=== PATIENT | male | born 1950 | race Caucasian/White ===

== ENCOUNTER → 2023-09-27 08:07 | Outpatient (REF) | payer MEDICARE, SELFPAY ==
--- NOTE | 2023-09-27 08:50 | CARDSERVLU ---
Echocardiogram with Lumason completed after protocol screening completed. Allergies verified.
Patent IV site: ___rt hand__
IV site flushed with 0.9% NaCl pre and post administration.
Diluted bolus method utilized to enhance visualization of ventricular pelletier.
Total volume given: __3.0_ mL
Patient tolerated all procedures well without complications.
#22 placed rt hand. Lumason given and INT d/c'd.
== END ==
LOC: RCS 08:07
PROVIDERS: ATTENDING PHYSICIAN Internal Medicine Cardiovascular Disease; FAMILY PHYSICIAN Family Medicine
DX: I50.23 Acute on chronic systolic (congestive) heart failure (principal); I10 Essential (primary) hypertension
CPT/HCPCS: 93308; Q9950

== ENCOUNTER 2023-10-05 13:00 | Outpatient (RCR) | payer MEDICARE, SELFPAY | END 2023-10-05 23:59 | disposition home or self-care (01) | LOC: CRHB 13:00 | PROVIDERS: ATTENDING PHYSICIAN Internal Medicine Cardiovascular Disease; FAMILY PHYSICIAN Family Medicine | DX: I50.22 Chronic systolic (congestive) heart failure (principal); R53.83 Other fatigue; R06.09 Other forms of dyspnea; R00.2 Palpitations | CPT/HCPCS: G0422; G0423 ==

== ENCOUNTER 2023-10-08 08:09 | Outpatient (RCR) | payer MEDICARE, SELFPAY ==
[2023-10-08 08:14] LABS: Glucose - Point of Care 139 mg/dl (70-99)
[2023-10-08 09:11] LABS: Glucose - Point of Care 125 mg/dl (70-99)
== END 2023-10-08 23:59 | disposition home or self-care (01) ==
LOC: CRHB 08:09
PROVIDERS: ATTENDING PHYSICIAN Internal Medicine Cardiovascular Disease; FAMILY PHYSICIAN Family Medicine
DX: I50.22 Chronic systolic (congestive) heart failure (principal)
CPT/HCPCS: 82962; G0422; G0423

== ENCOUNTER → 2023-11-29 10:45 | Outpatient (REF) | payer MEDICARE, SELFPAY ==
[2023-11-29 11:56] LABS: % Basophils 1.2 % (0-2); % Eosinophils 6.5 % (0-6); % Immature Granulocytes 0.5 % (0-0.5); % Lymphocytes 15.8 % (20.5-51.1); % Monocytes 6.8 % (1.7-9.3); % Neutrophils 69.2 % (42.2-75.2); Absolute Basophils 0.1 10^3/uL (0-0.2); Absolute Eosinophils 0.6 10^3/uL (0-0.7); Absolute Lymphocytes 1.4 10^3/uL (1.2-3.4); Absolute Monocytes 0.6 10^3/uL (0.1-0.6); Hematocrit 41.9 % (39.0-52.0); Hemoglobin 13.3 g/dL (13.0-18.0); Mean Corp Hgb Conc. 31.7 g/dL (33.0-37.0); Mean Corpuscular Hgb 29.2 pg (27.0-31.0); Mean Corpuscular Volume 91.9 fL (80.0-94.0); Mean Platelet Volume 10.4 fL (7.4-10.4); Nucleated Red Blood Cells % 0 % (-); Platelet Count 204 10^3/uL (130-400); Red Blood Cell Count 4.56 10^6/uL (4.70-6.10); White Blood Cell Count 8.7 10^3/uL (4.8-10.8)
[2023-11-29 14:33] LABS: ALT (SGPT) 14 U/L (0-50); AST (SGOT) 25 U/L (17-59); Albumin 4.8 g/dl (3.5-5.0); Alkaline Phosphatase 68 U/L (38-126); Blood Urea Nitrogen 35 mg/dl (9-20); Calcium 9.5 mg/dl (8.4-10.2); Carbon Dioxide 28 mmol/L (22-30); Chloride 99 mmol/L (98-107); Glucose 133 mg/dl (70-99); HDL Cholesterol 48 mg/dl; LDL Cholesterol, Calculated 69 mg/dl; Potassium 4.5 mmol/L (3.5-5.1); Sodium 138 mmol/L (135-145); Total Bilirubin 0.6 mg/dl (0.2-1.3); Total Cholesterol 135 mg/dl (50-199); Total Protein 7.4 g/dl (6.3-8.2); Triglyceride 93 mg/dl (10-149); Very Low Density Lipoprotein 18 mg/dl (0-30); eGFR 52.41
[2023-11-29 14:35] LABS: Glycohemoglobin (HgbA1c) 7.9 % (4.0-5.6)
== END ==
LOC: REG 10:45
PROVIDERS: ATTENDING PHYSICIAN Physician Assistant
DX: E11.59 Type 2 diabetes mellitus with other circulatory complications (principal); I25.10 Atherosclerotic heart disease of native coronary artery without angina pectoris; I10 Essential (primary) hypertension; D68.69 Other thrombophilia; I50.9 Heart failure, unspecified; Z95.2 Presence of prosthetic heart valve; E66.01 Morbid (severe) obesity due to excess calories; Z68.35 Body mass index [BMI] 35.0-35.9, adult; J44.9 Chronic obstructive pulmonary disease, unspecified; I48.0 Paroxysmal atrial fibrillation
CPT/HCPCS: 36415; 80053; 80061; 83036; 85025

== ENCOUNTER → 2024-02-08 11:06 | Outpatient (REF) | payer MEDICARE, SELFPAY ==
[2024-02-08 11:34] LABS: % Basophils 1.2 % (0-2); % Eosinophils 7.4 % (0-6); % Immature Granulocytes 0.4 % (0-0.5); % Monocytes 8.3 % (1.7-9.3); % Neutrophils 61.7 % (42.2-75.2); Absolute Basophils 0.1 10^3/uL (0-0.2); Absolute Eosinophils 0.6 10^3/uL (0-0.7); Absolute Lymphocytes 1.7 10^3/uL (1.2-3.4); Absolute Monocytes 0.7 10^3/uL (0.1-0.6); Hematocrit 41.2 % (39.0-52.0); Hemoglobin 13.6 g/dL (13.0-18.0); Mean Corpuscular Hgb 30.2 pg (27.0-31.0); Mean Corpuscular Volume 91.4 fL (80.0-94.0); Mean Platelet Volume 10.2 fL (7.4-10.4); Nucleated Red Blood Cells % 0 % (-); Platelet Count 203 10^3/uL (130-400); Red Blood Cell Count 4.51 10^6/uL (4.70-6.10); Red Cell Dist. Width 14.5 % (11.5-14.5); White Blood Cell Count 8.1 10^3/uL (4.8-10.8)
[2024-02-08 11:48] LABS: ALT (SGPT) 70 U/L (0-50); AST (SGOT) 224 U/L (17-59); Albumin 4.7 g/dl (3.5-5.0); Alkaline Phosphatase 61 U/L (38-126); Blood Urea Nitrogen 26 mg/dl (9-20); Calcium 9.7 mg/dl (8.4-10.2); Carbon Dioxide 29 mmol/L (22-30); Chloride 102 mmol/L (98-107); Glucose 138 mg/dl (70-99); Potassium 4.3 mmol/L (3.5-5.1); Sodium 141 mmol/L (135-145); Total Bilirubin 0.6 mg/dl (0.2-1.3); Total Protein 7.4 g/dl (6.3-8.2); eGFR > 60.00
[2024-02-08 12:15] LABS: Glycohemoglobin (HgbA1c) 6.9 % (4.0-5.6)
== END ==
LOC: REG 11:06
PROVIDERS: ATTENDING PHYSICIAN Physician Assistant; FAMILY PHYSICIAN Family Medicine
DX: E11.59 Type 2 diabetes mellitus with other circulatory complications (principal); I25.10 Atherosclerotic heart disease of native coronary artery without angina pectoris; I10 Essential (primary) hypertension; D68.69 Other thrombophilia; I50.9 Heart failure, unspecified; Z95.2 Presence of prosthetic heart valve; E66.01 Morbid (severe) obesity due to excess calories; Z68.35 Body mass index [BMI] 35.0-35.9, adult; J44.9 Chronic obstructive pulmonary disease, unspecified; I48.0 Paroxysmal atrial fibrillation; G47.33 Obstructive sleep apnea (adult) (pediatric)
CPT/HCPCS: 36415; 80053; 83036; 85025

== ENCOUNTER → 2024-02-16 08:14 | Outpatient (REF) | payer MEDICARE, SELFPAY | LOC: RCS 08:14 | PROVIDERS: ATTENDING PHYSICIAN Internal Medicine Cardiovascular Disease; FAMILY PHYSICIAN Family Medicine | DX: I48.0 Paroxysmal atrial fibrillation (principal) | CPT/HCPCS: 93307; Q9957 ==

== ENCOUNTER → 2024-03-13 11:53 | Outpatient (REF) | payer MEDICARE, SELFPAY ==
[2024-03-13 13:59] LABS: Blood Urea Nitrogen 33 mg/dl (9-20); Carbon Dioxide 29 mmol/L (22-30); Chloride 100 mmol/L (98-107); Glucose 123 mg/dl (70-99); Potassium 4.6 mmol/L (3.5-5.1); Sodium 138 mmol/L (135-145); eGFR 52.41
[2024-03-13 14:26] LABS: Calcium 9.4 mg/dl (8.4-10.2)
== END ==
LOC: REG 11:53
PROVIDERS: ATTENDING PHYSICIAN Physician Assistant; FAMILY PHYSICIAN Family Medicine
DX: N17.9 Acute kidney failure, unspecified (principal)
CPT/HCPCS: 36415; 80048

== ENCOUNTER 2024-03-28 07:22 | Day surgery (SDC) | payer MEDICARE, SELFPAY ==
[2024-03-28] VITALS (10 sets, daily range): BP systolic 102–119; BP diastolic 51–79; BMI 34.0
--- NOTE | 2024-03-28 07:37 | ITS.CL.CATH ---
[employer] - Catheterization
Cardiac Catheterization
Procedure Report:
LEFT AND RIGHT HEART CATHETERIZATION
Date of Procedure: March 28, 2024
Referring: Dr. Jamal Gabriel
PROCEDURES:
1. Left heart catheterization, coronary angiogram.
2. Right heart catheterization.
3. Ultrasound-guided access
INDICATION: Eron is a 73-year-old gentleman with past medical history of hypertension, hyperlipidemia, paroxysmal atrial fibrillation, prior bovine aortic valve replacement, 23 mm, peak and mean transaortic gradients of 46 and 29 mmHg, trace to
mild aortic regurgitation on chronic amiodarone and Eliquis with worsening cardiomyopathy, most recent echocardiogram on February 16, 2024 showing an LVEF of 25% with global hypokinesis and basal inferior and basal inferolateral akinesis who presents
today for a left and right heart catheterization to rule out obstructive CAD and assess invasive hemodynamics.
ACCESS:
1. Right radial artery, 6 Barbadian sheath, under ultrasound guidance.
2. Right brachial vein, 6 Barbadian sheath.
HEMODYNAMICS : (mmHg)
RA (m) : 22
RV (s/d,m) : 72/14, 24
PA (s/d, m) : 72/34, 50
PCWP (m) : 34, V waves to 53 mmHg
PA saturation: 62.5% on room air
AO saturation: 93.6% on room air
Cardiac Output : 5.58 L/min
Cardiac Index : 2.23 L/min/m-2
Systemic vascular resistance: 889 dsc^(-5)
Pulmonary vascular resistance: 2.87 willams unit
Heart rate: 60 bpm
AO (s/d) : 102/61
LV (s/d) : 131/21
LVEDP : 30
Estimated invasive transaortic gradient of 27 mmHg, aortic valve area 1.3 cm�
CORONARY FINDINGS: Of note there is significant right subclavian tortuosity so would avoid right radial access for future cases.
DOMINANCE: Right
LEFT MAIN: The left main artery is a large-caliber vessel which is right to the left anterior descending artery and the left circumflex artery. There is minimal luminal irregularities.
LEFT ANTERIOR DESCENDING: The left anterior descending artery is a small to medium caliber vessel which gives rise to 2 major diagonal branches as it courses to the anterior interventricular groove towards the apex. Beyond the second diagonal, the
LAD is small in caliber suggesting possible moderate to severe diffuse atherosclerotic plaque. Midportion of D2 has 30% stenosis.
CIRCUMFLEX: The left circumflex artery is a medium to large caliber vessel which gives rise to 2 major obtuse marginal branches. There is eccentric mid left circumflex up to 60-70% stenosis.
RIGHT CORONARY ARTERY: The right coronary artery was selectively engaged using a 6 Barbadian 3 DRC diagnostic catheter with some difficulty due to right subclavian tortuosity. The RCA is a large-caliber, dominant vessel which gives rise to the right
posterior descending artery and the right posterolateral system. There is minimal luminal irregularities.
SEDATION: 34 minutes of procedural sedation was utilized. An independent medical technologist blood bank was present to assist with and help manage the patient's level of consciousness and physiologic status.
RADIATION SUMMARY: Fluoro Time (min): 10.9, Dose (mGy): 774.79, DAP (Gy.cm2) : 63.68
Closure Device:
1. Vascular band over right radial artery, 10 cc of air.
2. Manual pressure was held over the right brachial venous access site with successful hemostasis.
CONCLUSIONS
1. Significantly elevated right and left-sided filling pressures with severe pulmonary hypertension and normal cardiac output. Borderline low systemic vascular resistance.
2. Mid left circumflex artery has an eccentric up to 60 to 70% stenosis.
3. There is no obvious focal obstructive lesion in the LAD however beyond the second diagonal branch, the LAD is small in caliber suggesting possible moderate to severe diffuse atherosclerotic plaque without obvious target from a PCI standpoint.
RECOMMENDATIONS
1. 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
2. Aggressive management of cardiovascular risk factors.
3. If fails medical therapy or has any new anginal symptoms, can consider IFR guided PCI to left circumflex.
Copy to: Dr. Jamal Gabriel
Pat Nuñez MD, FACC, [facility]
[2024-03-28] MEDS: LOW STRENGTH ASPIRIN 81 MG PO (08:01)
[2024-03-28] MEDS: NSS 370 ML IV (08:03)
[2024-03-28 08:25] LABS: Hematocrit 37.9 % (39.0-52.0); Hemoglobin 12.7 g/dL (13.0-18.0); Mean Corp Hgb Conc. 33.5 g/dL (33.0-37.0); Mean Corpuscular Hgb 30.8 pg (27.0-31.0); Mean Corpuscular Volume 91.8 fL (80.0-94.0); Mean Platelet Volume 10.2 fL (7.4-10.4); Platelet Count 187 10^3/uL (130-400); Red Blood Cell Count 4.13 10^6/uL (4.70-6.10); Red Cell Dist. Width 15.4 % (11.5-14.5); White Blood Cell Count 7.1 10^3/uL (4.8-10.8)
[2024-03-28 08:38] LABS: INR 1.13; PT 14.4 Sec (11.4-14.6)
[2024-03-28 08:39] LABS: APTT 33.6 Sec (23.4-35.0)
[2024-03-28 08:43] LABS: ALT (SGPT) 15 U/L (0-50); AST (SGOT) 24 U/L (17-59); Albumin 4.5 g/dl (3.5-5.0); Alkaline Phosphatase 61 U/L (38-126); Blood Urea Nitrogen 29 mg/dl (9-20); Calcium 9.5 mg/dl (8.4-10.2); Carbon Dioxide 24 mmol/L (22-30); Chloride 104 mmol/L (98-107); Estimated Creatinine Clearance 82 ml/min; Glucose 126 mg/dl (70-99); Potassium 3.9 mmol/L (3.5-5.1); Sodium 139 mmol/L (135-145); Total Bilirubin 0.6 mg/dl (0.2-1.3); Total Protein 7.1 g/dl (6.3-8.2); eGFR > 60.00
[2024-03-28] MEDS: LASIX 80 MG IV (10:17)
== END 2024-03-28 12:35 | disposition home or self-care (01) ==
LOC: CATH 07:22
PROVIDERS: ATTENDING PHYSICIAN Internal Medicine Interventional Cardiology; FAMILY PHYSICIAN Family Medicine
DX: I25.10 Atherosclerotic heart disease of native coronary artery without angina pectoris (principal); I48.0 Paroxysmal atrial fibrillation; I42.9 Cardiomyopathy, unspecified; I11.0 Hypertensive heart disease with heart failure; I50.9 Heart failure, unspecified; E78.5 Hyperlipidemia, unspecified; I27.20 Pulmonary hypertension, unspecified; E11.9 Type 2 diabetes mellitus without complications; G47.33 Obstructive sleep apnea (adult) (pediatric); Z95.3 Presence of xenogenic heart valve; Z87.891 Personal history of nicotine dependence; Z79.82 Long term (current) use of aspirin; Z79.84 Long term (current) use of oral hypoglycemic drugs; Z79.01 Long term (current) use of anticoagulants
CPT/HCPCS: 99152; 99153; C1894; 80053; 85027; 85610; 85730; 93460; Q9967

== ENCOUNTER → 2024-04-05 14:27 | Outpatient (REF) | payer MEDICARE, SELFPAY ==
[2024-04-05 16:50] LABS: ALT (SGPT) 19 U/L (0-50); AST (SGOT) 28 U/L (17-59); Albumin 4.9 g/dl (3.5-5.0); Alkaline Phosphatase 66 U/L (38-126); Blood Urea Nitrogen 46 mg/dl (9-20); Calcium 9.6 mg/dl (8.4-10.2); Carbon Dioxide 30 mmol/L (22-30); Chloride 98 mmol/L (98-107); Glucose 116 mg/dl (70-99); Magnesium 2.5 mg/dl (1.6-2.3); Potassium 4.9 mmol/L (3.5-5.1); Sodium 141 mmol/L (135-145); Total Bilirubin 0.6 mg/dl (0.2-1.3); Total Protein 7.6 g/dl (6.3-8.2); eGFR 44.65
== END ==
LOC: REG 14:27
PROVIDERS: ATTENDING PHYSICIAN Nurse Practitioner; FAMILY PHYSICIAN Family Medicine; REFERRING PHYSICIAN Internal Medicine Cardiovascular Disease
DX: I25.10 Atherosclerotic heart disease of native coronary artery without angina pectoris (principal); I27.0 Primary pulmonary hypertension
CPT/HCPCS: 36415; 80053; 83735

== ENCOUNTER → 2024-04-17 11:52 | Outpatient (REF) | payer MEDICARE, SELFPAY ==
[2024-04-17 13:29] LABS: Blood Urea Nitrogen 65 mg/dl (9-20); Calcium 9.8 mg/dl (8.4-10.2); Carbon Dioxide 24 mmol/L (22-30); Chloride 94 mmol/L (98-107); Glucose 221 mg/dl (70-99); Potassium 5.1 mmol/L (3.5-5.1); Sodium 136 mmol/L (135-145); eGFR 36.33
[2024-04-17 13:50] LABS: Protein/creatinine Ratio 0.2; Urine Protein 57 mg/dl
== END ==
LOC: REG 11:52
PROVIDERS: ATTENDING PHYSICIAN Specialist; FAMILY PHYSICIAN Family Medicine
DX: R79.89 Other specified abnormal findings of blood chemistry (principal); I42.9 Cardiomyopathy, unspecified
CPT/HCPCS: 36415; 80048; 82570; 84156

== ENCOUNTER → 2024-04-26 09:44 | Outpatient (REF) | payer MEDICARE, SELFPAY | LOC: HWRAD 09:44 | PROVIDERS: ATTENDING PHYSICIAN Physician Assistant; FAMILY PHYSICIAN Family Medicine; REFERRING PHYSICIAN Specialist | DX: N17.9 Acute kidney failure, unspecified (principal); I10 Essential (primary) hypertension; E11.59 Type 2 diabetes mellitus with other circulatory complications | CPT/HCPCS: 76770 ==

== ENCOUNTER → 2024-05-08 16:07 | Outpatient (REF) | payer MEDICARE, SELFPAY ==
[2024-05-08 18:05] LABS: Blood Urea Nitrogen 35 mg/dl (9-20); Calcium 9.1 mg/dl (8.4-10.2); Carbon Dioxide 30 mmol/L (22-30); Chloride 97 mmol/L (98-107); Glucose 136 mg/dl (70-99); Potassium 4.1 mmol/L (3.5-5.1); Sodium 139 mmol/L (135-145); Uric Acid 6.7 mg/dl (3.5-8.5); eGFR 52.41
[2024-05-11 00:41] LABS: PSA Total 0.4 ng/mL (0.0-4.0)
== END ==
LOC: REG 16:07
PROVIDERS: ATTENDING PHYSICIAN Internal Medicine Cardiovascular Disease; FAMILY PHYSICIAN Family Medicine; REFERRING PHYSICIAN Physician Assistant
DX: I25.10 Atherosclerotic heart disease of native coronary artery without angina pectoris (principal); I50.9 Heart failure, unspecified; N40.0 Benign prostatic hyperplasia without lower urinary tract symptoms; M10.00 Idiopathic gout, unspecified site
CPT/HCPCS: 36415; 80048; 84153; 84154; 84550

== ENCOUNTER 2024-07-07 12:08 | Inpatient (IN) | payer MEDICARE, SELFPAY ==
[2024-07-03 09:39] VITALS: BMI 37.1
[2024-07-07] VITALS (9 sets, daily range): BP systolic 92–124; BP diastolic 66–80; BMI 37.1
[2024-07-07 12:04] LABS: Glucose - Point of Care 151 mg/dl (70-99)
--- NOTE | 2024-07-07 14:29 | ITS.CL.ICD ---
Irrigation Pump Installer - ICD
Implantable Cardioverter Defibrillator
Procedure Report:
Date of Procedure: 07/07/2024
Patient : 1950
Procedures: BiV ICD implantation
Indication: 1) Class III CHF, LVEF 25%, 2) left bundle Branch Block, QRS 164 ms 3) guideline based medical therapy greater than 3 months. Primary prevention ICD and also noted to have advanced conduction disease with a long first-degree AV delay
and prior atrial arrhythmias
�
Implants:
Pulse Generator: New [employer]; Model# [id number]; Serial#�[id number]
Atrial Lead: Medtronic: Model# 4574; Serial# [id number]
Right Ventricular Lead: Medtronic; Model# 6935; Serial# [id number]
Left Ventricular Lead: Medtronic; Model# 4798; Serial# [id number] utilizing a mid posterolateral branch
�
Technique: The patient was prepped and draped in the usual fashion. Local anesthetic was applied to the left prepectoral subcutaneous tissue. A 4 inch incision was made. The left axillary vein was accessed��without difficulty. A subcutaneous pocket
was CREATED. Hemostasis was excellent. The leads were introduced with hemostatic peel away introducer sheaths. The right ventricular lead was placed at the right ventricular apical septum. The atrial lead was placed in the lateral RA wall as
parameters in the right atrial appendage demonstrated higher thresholds and less lead stability and as such we utilized the lateral RA which had stable and improved parameters. The coronary sinus was accessed with the aid of the Attain system. The
coronary sinus was occluded at its midportion with small distal collaterals to the occlusion demonstrated by venography. There was an early branching vessel off the proximal CS which traveled to the mid to lateral wall somewhat posteriorly which
were utilized for the quadripolar lead. Morphology had R wave in V1 and V2 as well as a Q in lead aVL. The left ventricular lead was placed in the mid lateral left ventricle at the base. 10 volt pacing did not capture the diaphragm. The leads were
secured to the pectoralis muscle and fascia. The leads were appropriately attached to the device. The pocket was irrigated with antibiotic solution. The device and leads were placed in the pocket and the device was secured to pectoralis muscle and
facia. The incision was closed with absorbable sutures. The estimated blood loss was minimal. There were no complications. Device based testing was performed as described below. IV contrast total: 40 cc.
�
System Analysis:
RA lead: P: 2.0 mV; Threshold: 0.375 V @ 0.5 ms; Impedance: 520 ohms.
RV lead: R: 8 mV; Threshold: 0.625 V @ 0.5 ms; Impedance: 400 ohms.
LV lead: R: 6 mV; Threshold: 2.2 V @1.5 ms at LV 1�2; Impedance: 1100 ohms.
2.2 V at 1.5 ms at LV 1�ring. Programmed LV early 50 ms for surface R wave in V1�2 and Q wave in lead aVL
Final Programming: Tachy: VT/VF:188; Kareem: DDD 50-120.
�
Conclusion: Uncomplicated Biventricular ICD implant
�
Recommendation: Routine post BiV ICD care.
�
cc: Dr. Jamal Gabriel
�
[2024-07-07 15:07] LABS: Glucose - Point of Care 139 mg/dl (70-99)
--- NOTE | 2024-07-07 16:52 | CM ---
CM following for DC planning needs.
Met w/ patient and spouse at bedside to complete initial assessment.
Pt. resides w/ spouse in a private, multi level home.
Functionally, patient is indep. at baseline w/ ADLs, mobility without the use of any assisted device.
Patient has RX plan and uses [facility], [facility] or mail order thru [facility].
Anticipated DC plan is for home, no needs.
Will follow.
[2024-07-07] MEDS: ANCEF 5 IV (17:39)
[2024-07-07] MEDS: LASIX 80 MG IV (17:39)
--- NOTE | 2024-07-07 18:03 | PTCARENOTE ---
Pt received post BIVICD placement in left anterior chest. Dressing dry and intact, no sign of bleeding or hematoma. Pt up independently in room, activity restrictions post device reviewed and understood. CXR completed.Telemetry shows vent.paced
rhythm. Pt c/o of irritated left eye on arrival to IVU with continuos watering. Pt states it 'feels like sandpaper, like it was scratched'. Pt's eye is bloodshot and he cant keep it open very long. and Dr.Steven Rubin notified, orders
for toradol eye drops and erythromcin ointment placed, will reevaluate in the morning.
--- NOTE | 2024-07-07 18:26 | W.PN.UPDATE ---
Update Note
Progress Note Update
Called by nursing, patient has intact vision but affected eye feels 'scratchy' and sandpaper with blinking post procedure. Presumed corneal abrasion. Anesthesiology called for/to evaluation by nursing. I asked Dr. Lehman from Opthalmology for
recommendations and if symptoms persist he communicated that he can evaluate patient and consider contact lense implant if ongoing pain symptoms over the weekend or see in the office as necessary.. I ordered erythromycin TID/QID opthalmologic
ointment and will follow.
[2024-07-07] MEDS: ACULAR 0.5% EYE DROPS 1 DROP OPHTH (18:33)
[2024-07-07] MEDS: ERYTHROMYCIN 0.5% OPHTHALMIC OINTMENT 1 APPLIC OPHTH ×2 (19:24→22:05)
--- NOTE | 2024-07-07 21:11 | PTCARENOTE ---
Pt. received at change of shift. Pt. seen and assessed in room. Pt. AOx3, tele reading Vpaced. Left chest wall c/d/i with aquacell with immobilizer on. No complaints of pain at left chest wall. Left eye slightly irritated, continuing erithromycin
ointment as scheduled. This RN explained plan of care to pt., pt. verbalizes understanding. Education conducted about post pacemaker care and range of motion limitations with left arm. Call alvarez within reach. Continuing to monitor at this time.
[2024-07-07] MEDS: CRESTOR 10 MG PO (22:05)
[2024-07-07] MEDS: ZOLOFT 50 MG PO (22:05)
[2024-07-08 02:55] VITALS: BP 110/72
[2024-07-08] MEDS: TYLENOL 650 MG PO ×2 (03:00→08:42)
[2024-07-08] MEDS: ANCEF 5 IV (03:01)
[2024-07-08 03:21] LABS: Hematocrit 35.9 % (39.0-52.0); Hemoglobin 11.4 g/dL (13.0-18.0); Mean Corp Hgb Conc. 31.8 g/dL (33.0-37.0); Mean Corpuscular Hgb 30.3 pg (27.0-31.0); Mean Corpuscular Volume 95.5 fL (80.0-94.0); Mean Platelet Volume 10.8 fL (7.4-10.4); Platelet Count 149 10^3/uL (130-400); Red Blood Cell Count 3.76 10^6/uL (4.70-6.10); Red Cell Dist. Width 14.4 % (11.5-14.5)
[2024-07-08 03:29] VITALS: BMI 37.0
[2024-07-08 03:44] LABS: Blood Urea Nitrogen 27 mg/dl (9-20); Calcium 7.9 mg/dl (8.4-10.2); Carbon Dioxide 22 mmol/L (22-30); Chloride 104 mmol/L (98-107); Estimated Creatinine Clearance 71 ml/min; Glucose 134 mg/dl (70-99); Magnesium 1.7 mg/dl (1.6-2.3); Potassium 3.6 mmol/L (3.5-5.1); Sodium 141 mmol/L (135-145); eGFR > 60.00
[2024-07-08 07:42] VITALS: BP 105/80
--- NOTE | 2024-07-08 08:13 | W.PN.CARDCBS ---
Addendum entered and electronically signed by Ludmila Diaz DO 07/08/24 16:33:
I saw and examined the patient.
The Overnight Stocker's note was reviewed and I agree with the note.
Comment: Seen and examined. Patient reports eye is feeling better. No chest pain or pressure. No dizziness. No palpitations.
General: No acute distress, AAOX3
Neck: Negative JVD
Heart: A sensed ventricular paced rhythm. No murmurs. No rub. Pacemaker site intact
Lungs: CTA b/l, negative wheezes/rales/rhonchi
Abd: Positive BS, NT/ND, neg rebound/rigidity/guarding
Ext: No edema
Neuro: nonfocal
Plan:
-Presented 07/07/2024 for elective placement of biventricular ICD given cardiomyopathy, mixed without improved ejection fraction despite optimal medical therapy and LBBB.
-s/p Medtronic biventricular ICD 07/07/2024. Postprocedural chest x-ray without evidence of pneumothorax
-Incision clean dry intact without evidence of infection or hematoma
-Patient hemodynamically stable overnight
-EKG this morning shows biventricular paced rhythm
-Wound care and activity restrictions reviewed with patient
-Postprocedure patient was given 1 dose of 80 mg IV Lasix. Resume oral Lasix 07/08/2024.
-Continue amiodarone for history of NSVT and atrial fibrillation
-Resume Eliquis 07/09/2024 in am
-Continue GDMT with Toprol, Aldactone, Jardiance, Lasix
-Postprocedure likely corneal abrasion. Patient was provided erythromycin ointment 4 times daily with improvement. He would like to follow-up with his outpatient internal communications specialist rather than stay for ophthalmology evaluation here.
Patient deemed stable for discharge to home.
Outpatient cardiology follow-up and incision check has been arranged
Original Note:
Today's Communication / Plan
-
Continue GDMT for mixed cardiomyopathy
Resume Eliquis 07/09/2024 in AM
Continue erythromycin ointment 4 times daily
Follow-up with outpatient internal communications specialist
Stable from cardiac standpoint for discharge
Impression / Plan
-
PCP: Dr. Chintan Gonzalez
Cardiology: Dr. Gabriel
Impression
Presented 07/07/2024 for elective placement of biventricular ICD
Cardiomyopathy, mixed without improved ejection fraction despite optimal medical therapy
s/p Medtronic biventricular ICD 07/07/2024
Corneal abrasion left eye
LBBB
H/o Nonsustained V. tach
Chronic heart failure with reduced ejection fraction
History of atrial fibrillation status post cardioversion 07/23/2023, sinus
History of COVID September 2021
HTN
HLD
DM2
CAD s/p 1 vessel CABG
s/p bioAVR
JAMES not using CPAP
H/o Cough syncope
Echo 02/16/2024: EF 25%. Global hypokinesis with basal inferior and basal inferolateral akinesis. Stage III diastolic dysfunction. Moderate to severe MR. Severely dilated left atrium. #23 bovine aortic valve with peak/mean gradient 46/29 mmHg.
Mild AI. Mild TR. PAP 35 mmHg
Echocardiogram 08/03/2023: Ejection fraction 25 to 30%, hypokinetic septum, apex, inferior, anterior and distal lateral pelletier, mild concentric LVH, moderate MR, status post bioprosthetic AVR with mean gradient of 13 mm hG
Echocardiogram 06/28/2023: Dilated right ventricle with ejection fraction of 20 to 25%, status post bioprosthetic AVR with mean gradient of 15 mmHg, dilated right heart with PA systolic of 45 mmHg
Echocardiogram January 2022: Ejection fraction 40%, global hypokinesis, status post AVR with mean gradient of 10 mmHg
Cardiac catheterization 03/28/2024: LM: LI. LAD: Moderate to severe diffuse atherosclerotic plaque. D2 has 30% stenosis. Left circumflex: Mid 60 to 70% stenosis. RCA: LI.
HEMODYNAMICS : (mmHg) RA (m) : 22; RV (s/d,m) : 72/14, 24; PA (s/d, m) : 72/34, 50; PCWP (m) : 34, V waves to 53 mmHg; PA saturation: 62.5% on room air; AO saturation: 93.6% on room air;
Cardiac Output : 5.58 L/min; Cardiac Index : 2.23 L/min/m-2; Systemic vascular resistance: 889 dsc^(-5); Pulmonary vascular resistance: 2.87 willams unit; AO (s/d) : 102/61; LV (s/d) : 131/21; LVEDP : 30
Estimated invasive transaortic gradient of 27 mmHg, aortic valve area 1.3 cm�
Significantly elevated right and left-sided filling pressures with severe pulmonary hypertension and normal cardiac output. Borderline low systemic vascular resistance.
Lexiscan sestamibi stress test 07/13/2023: Moderate sized medium in severity fixed basal to distal inferior, basal to mid inferoseptal, small mid anterior perfusion defect with no evidence of ischemia. Ejection fraction 21% with severe global
hypokinesis
Plan:
-Presented 07/07/2024 for elective placement of biventricular ICD given cardiomyopathy, mixed without improved ejection fraction despite optimal medical therapy and LBBB.
-s/p Medtronic biventricular ICD 07/07/2024. Postprocedural chest x-ray without evidence of pneumothorax
-Incision clean dry intact without evidence of infection or hematoma
-Patient hemodynamically stable overnight
-EKG this morning shows biventricular paced rhythm
-Wound care and activity restrictions reviewed with patient
-Postprocedure patient was given 1 dose of 80 mg IV Lasix. Resume oral Lasix 07/08/2024.
-Continue amiodarone for history of NSVT and atrial fibrillation
-Resume Eliquis 07/09/2024 in am
-Continue GDMT with Toprol, Aldactone, Jardiance, Lasix
-Postprocedure patient complained of scratchy I with sensation of sandpaper with blinking postprocedure. [place] to be likely corneal abrasion. Patient was provided erythromycin ointment 4 times daily. He notes significant improvement of scratchy
sensation and injected eye this morning. Patient denies any visual disturbances. He would like to follow-up with his outpatient internal communications specialist rather than stay for ophthalmology evaluation here.
-Patient deemed stable for discharge to home. Outpatient cardiology follow-up and incision check has been arranged
Progress Note - Surface Grinder Tender
Subjective
Date of Service: July 08, 2024
Objective
Labs:
07/08/24 03:10
07/08/24 03:10
Labs
Hgb 11.4 g/dL (13.0-18.0) L 07/08/24 03:10
Hct 35.9 % (39.0-52.0) L 07/08/24 03:10
Plt Count 149 10^3/uL (130-400) D 07/08/24 03:10
Sodium 141 mmol/L (135-145) 07/08/24 03:10
Potassium 3.6 mmol/L (3.5-5.1) 07/08/24 03:10
BUN 27 mg/dl (9-20) H 07/08/24 03:10
Creatinine 1.2 mg/dL (0.7-1.3) 07/08/24 03:10
Glucose 134 mg/dl (70-99) H 07/08/24 03:10
Vital Signs and I&O:
Vital Signs
Temp Pulse Resp BP Pulse Ox
97.9 F 82 18 105/80 94
07/08/24 07:40 07/08/24 07:42 07/08/24 07:40 07/08/24 07:42 07/08/24 07:56
Vital Signs
Temp Pulse Resp BP Pulse Ox
97.9 F 82 18 105/80 94
07/08/24 07:40 07/08/24 07:42 07/08/24 07:40 07/08/24 07:42 07/08/24 07:56
Intake & Output
07/06/24 07/07/24 07/08/24 07/09/24
06:59 06:59 06:59 06:59
Intake Total 1140 / 1140
Output Total 400 / 400
Balance 740 / 740
[2024-07-08] MEDS: PACERONE 200 MG PO (08:42)
[2024-07-08] MEDS: FARXIGA 10 MG PO (08:42)
[2024-07-08] MEDS: ALDACTONE 12.5 MG PO (08:42)
[2024-07-08] MEDS: TOPROL XL 25 MG PO (08:43)
[2024-07-08] MEDS: LASIX 80 MG PO (08:43)
[2024-07-08] MEDS: ASPIR LOW (ENTERIC COATED) 81 MG PO (08:43)
[2024-07-08] MEDS: ERYTHROMYCIN 0.5% OPHTHALMIC OINTMENT 1 APPLIC OPHTH (08:44)
--- NOTE | 2024-07-08 12:31 | PTCARENOTE ---
Pt reports his left eye feels much better, no longer red or irritated or watering continuosly. Pt seen by Marie Tavarez NP and . Telemetry and IV device removed. Discharge instructions reviewed with pt regarding activity and driving
restrictions, wound care, pain management, medications adn their possible side effects, CHF guidelines, reporting cares and concerns and follow up appt's. Very good understanding verbalized. pt will make an appt to see his opthalmologist in the next
2-3 days. Pt escorted out via wheelchair and discharged to home.
[2024-07-10 15:40] LABS: Hepatitis C Antibody Negative (Negative)
--- NOTE | 2024-07-11 07:55 | W.DS.TRANS ---
DC Summary - Inside Steward/Stewardess
-
Discharge Instructions:
Discharge Diagnosis/Procedures BiV ICD implant
Diet Low Cholesterol,2 Gram Sodium
Driving Restrictions No driving for 1 week
Bathing Restrictions OK to Shower
Specialty Instructions Weigh Daily
Instructions:
Stand-Alone Forms: DC Inst - Implanted Device
Changes to Home Medications: No
Discharge Medications:
DC Medications w/original date entered in [facility]
metoprolol succinate 25 mg tablet,extended release 24 hr 25 mg PO DAILY Blood pressure 10/01/21
amiodarone 200 mg tablet 200 mg PO DAILY Arrhythmia 07/23/23
apixaban 5 mg tablet (Eliquis) 5 mg PO BID blood thinner 07/23/23
aspirin 81 mg tablet,delayed release 81 mg PO DAILY blood thinner 07/23/23
empagliflozin 10 mg tablet (Jardiance) 10 mg PO DAILY dm 07/23/23
furosemide 80 mg tablet 80 mg PO BID AT 0800,1600 #60 tabs 03/28/24
spironolactone 25 mg tablet 12.5 mg (1/2 x 25 mg) PO DAILY 30 days #15 tabs 03/28/24
rosuvastatin 10 mg tablet (Crestor) 10 mg PO HS 06/29/24
sertraline 50 mg tablet (Zoloft) 50 mg PO HS 06/29/24
erythromycin 5 mg/gram (0.5 %) eye ointment 1 applic ophthalmic (eye) QID corneal abrasion #1 g 07/08/24
Home Medication Changes
Pending Results: No
== END 2024-07-08 11:22 | disposition home or self-care (01) | DRG 277 ==
LOC: IVU 12:08
PROVIDERS: Nurse Practitioner Adult Health; ADMITTING PHYSICIAN Internal Medicine Cardiovascular Disease; FAMILY PHYSICIAN Family Medicine
PROC: 02HK3KZ Insertion of Defibrillator Lead into Right Ventricle, Percutaneous Approach (ICD-10-PCS; 2024-07-07)
PROC: 0JH609Z Insertion of Cardiac Resynchronization Defibrillator Pulse Generator into Chest Subcutaneous Tissue and Fascia, Open Approach (ICD-10-PCS; 2024-07-07)
PROC: 02H63KZ Insertion of Defibrillator Lead into Right Atrium, Percutaneous Approach (ICD-10-PCS; 2024-07-07)
PROC: 02H43KZ Insertion of Defibrillator Lead into Coronary Vein, Percutaneous Approach (ICD-10-PCS; 2024-07-07)
DX: I13.0 Hypertensive heart and chronic kidney disease with heart failure and stage 1 through stage 4 chronic kidney disease, or unspecified chronic kidney disease (principal); I50.22 Chronic systolic (congestive) heart failure; I42.8 Other cardiomyopathies; I44.7 Left bundle-branch block, unspecified; N18.30 Chronic kidney disease, stage 3 unspecified; I48.0 Paroxysmal atrial fibrillation; I27.20 Pulmonary hypertension, unspecified; I25.10 Atherosclerotic heart disease of native coronary artery without angina pectoris; I34.0 Nonrheumatic mitral (valve) insufficiency; E11.319 Type 2 diabetes mellitus with unspecified diabetic retinopathy without macular edema; E78.5 Hyperlipidemia, unspecified; J44.9 Chronic obstructive pulmonary disease, unspecified; G47.33 Obstructive sleep apnea (adult) (pediatric); E66.9 Obesity, unspecified; F32.A Depression, unspecified; E11.40 Type 2 diabetes mellitus with diabetic neuropathy, unspecified; D63.1 Anemia in chronic kidney disease; Z68.37 Body mass index [BMI] 37.0-37.9, adult; Z79.01 Long term (current) use of anticoagulants; Z79.82 Long term (current) use of aspirin; Z79.84 Long term (current) use of oral hypoglycemic drugs; Z87.891 Personal history of nicotine dependence; Z95.1 Presence of aortocoronary bypass graft; Z95.3 Presence of xenogenic heart valve; F41.9 Anxiety disorder, unspecified
CPT/HCPCS: 33249; 33225; C1769; C1892; C1730; C1887; 71045; 80048; 82962; 83735; 85027; 86803; 93005; C1777; C1882; C1898; C1900; Q9967

== ENCOUNTER 2024-07-13 19:14 | Inpatient (IN) | payer MEDICARE, SELFPAY ==
--- NOTE | 2024-07-13 15:35 | ED.GENMED ---
ED Provider Triage
<Fabian Mejia PA-C - Last Filed: 07/13/24 15:38>
-
Patient seen by provider in Triage?: Seen in Triage
Attestation: A medical screening examination has been initiated by a qualified medical provider. Based on the assessment performed at this time, it has been determined that an emergent medical condition may exist and the patient has been informed
that further medical evaluation and possible additional diagnostic testing may be needed.
HPI: Recent pacemaker placement, worsening SOB/HUSSEIN. Sent by Dr. Phillips office for evaluation. On eliquis and compliant. Concern for CHF exacerbation. Labs ordered. Hemodynamically stable
GENERAL: Alert , in no apparent distress
EYE: No visual abnormalities.
NECK: Trachea midline
ENT: No visible abnormalities.
LUNGS: No acute respiratory distress
NEUROLOGICAL: Alert and oriented
SKIN: Skin intact. No visible changes.
MUSCULOSKELETAL: Moving extremities normally
PSYCH: Normal and appropriate interaction.
This is a medical evaluation conducted in person to initiate diagnostic evaluation and provide initial therapeutics. Please see further documentation by the treating clinician.
History of Present Illness
<Fabian Mejia PA-C - Last Filed: 07/13/24 15:38>
General
Chief Complaint: Cardiac Symptoms
Time Seen by Provider: 07/13/24 17:12
<Daniel Evangelista PA-C - Last Filed: 07/13/24 22:01>
History of Present Illness
History of Present Illness:
73-year-old male presents to the emergency department for evaluation of dyspnea on exertion. He is 6 days status post pacemaker placement performed at this hospital by Dr. Gray. Reports significant weight gain after the procedure but has lost
approximate 3 pounds since yesterday. Still up from his dry weight. Significant dyspnea with any minimal exertion. Denies any chest pain. Does feel as though his abdomen is bloated.
Past History
<Fabian Mejia PA-C - Last Filed: 07/13/24 15:38>
Past History
ED Past Medical History: CAD, HTN, Hypercholesterolemia, Valvular disease and Other (Pneumonia, kidney stones, pleurisy, arthritis, ocular migraines, anemia, depression)
ED Past Surgical History: Cardiac
Social History
Tobacco: Smoker
Alcohol: None
Drug: None
Personal:
Living: with family
Review of Systems
<Daniel Evangelista PA-C - Last Filed: 07/13/24 22:01>
Review of Systems
Allergies reviewed?: Yes
All Other Systems: ROS reviewed and negative except as documented in HPI and ROS
Phy Exam
<Daniel Evangelista PA-C - Last Filed: 07/13/24 22:01>
Physical Exam
Physical Exam:
GEN: Well appearing, NAD, WDWN
HEENT: Oral mucosa moist, no scleral icterus
Cardiac: Regular rate and rhythm
Lung: Mildly tachypneic, markedly dyspneic with exertion. Lungs globally clear to auscultation
Abdomen: Soft and nondistended, no tenderness
MSK: No gross deformity or injuries
Skin: Good color, no pallor or jaundice, no rashes
Neuro: AO x3, moves all extremities freely
Psych: Calm, cooperative
Course
<Fabian Mejia PA-C - Last Filed: 07/13/24 15:38>
Orders/Labs/Results
Orders:
Orders
07/13/24 Dinner
Cholesterol Lowering
At Your Request: Full Participation
Fluid Restriction: 1200 mL/day (40 oz)
Cholesterol Lowering: Sodium, 2 Gram
07/13/24 15:38
Electrocardiogram (*1) Urgent
Reason for Study: Shortness of Breath
CR Chest - 2 Views Urgent
Comment:
Reason For Exam: HUSSEIN, SOB, new pacemaker
07/13/24 15:53
Basic Metabolic Panel Urgent
Complete Blood Count/With Diff Urgent
NT-proBNP Urgent
07/13/24 15:57
Urinalysis Reflex To Culture Urgent
Date Specimen was Collected: 07/13/24
Time Specimen was Collected: 15:56
07/13/24 17:21
Furosemide [Lasix] 80 mg IV NOW STA
07/13/24 17:22
Potassium Chloride [KCl] 40 meq PO NOW STA
07/13/24 18:24
Venous Doppler Lwr Ext Bilat [US Periph Venous LOWER Ext Yuri] Urgent
Comment:
Reason For Exam: sob
07/13/24 18:26
CARDIOLOGY CONSULT Routine
Consulting Provider: Jamal Gabriel
Was physician already notified: Yes
Reason for consult: pt reported wt gain post pacemaker
07/13/24 18:31
Abdomen Xray - 1 View [CR Abdomen - 1 View] Urgent
Comment:
Reason For Exam: distention constipation
07/13/24 18:34
Admit/Transfer Patient As Directed
Co-Sign Provider:
Level of Care: Inpatient admission
Assign to:: Telemetry
Physician / Group: judson landeros
Transfer to: Telemetry
Diagnosis: acute chf, acute constipation, s/p PPM
Reason for Telemetry: Subacute Heart Failure
Date to Stop Telemetry: 07/15/24
Time to Stop Telemetry: 11:00
Reason for Hospitalization: acute chf, acute constipation, s/p PPM
Expected length of stay greater than two midnights?: Yes
ELOS- Estimated Length of Stay in days: 5
I certify the patient meets the requirements for IP care: Yes
Code Status As Directed
Resuscitation Status: Full Code
07/13/24 18:38
PRN Pain Medication Management As Directed
May give lesser potent ordered pain med per pt: Yes
preference::
Protocol:: Medication orders for pain may be administered in a
manner that supports deferring to patient preference
when the pt is:
- Requesting an ordered lesser potent pain medication.
Least to most potent pain medications are defined
as: acetaminophen < NSAID < tramadol < opioids
(morphine, oxycodone, hydromorphone).
- Requesting a lesser dose of the same medication IF
ORDERED.
- Requesting a less intrusive route of administration
if both routes are prescribed by the provider (PO <
IV).
07/13/24 20:02
COVID-19 Antigen Urgent
Source: Nasal Swab
Influenza A+B Rapid Molecular Urgent
[facility] Source: Nasal Swab
Specimen Description:
07/13/24 21:37
Acetaminophen [Tylenol] 650 mg PO Q4HPRN PRN
Apixaban [Eliquis] 5 mg PO BID
07/13/24 21:37
VTE Contraindication Routine
VTE Mechanical Device Contraindication: Medical Contraindication
Pharmocologic Contraindication: Medical Contraindication
Comment: pt on eliquis
Activity As Directed
Activity Level: With Assistance
Intake/ Output As Directed
Frequency: Per unit guidelines
Vital Signs As Directed
Frequency: q4h
Weight As Directed
Frequency: Daily
Incentive Spirometry [Rx Incentive Spirometry] [RESP] Routine
Frequency: q1h while awake
Pulse Ox/spot Check [RESP] Routine
Quantity: 1
Pt Eval And Treat Routine
Activity Level: As Tolerated
07/13/24 22:00
Latanoprost [Xalatan Ophthalmic Solution] See Dose Instructions RIGHT EYE HS
Rosuvastatin Calcium [Crestor] 10 mg PO HS
Sertraline HCl [Zoloft] 50 mg PO HS
07/14/24 06:00
Complete Blood Count/With Diff IN AM
Comprehensive Metabolic Panel IN AM
07/14/24 08:00
Amiodarone [Pacerone] 200 mg PO DAILY
Aspirin Low Dose EC [Aspir Low (Enteric Coated)] 81 mg PO DAILY
Dapagliflozin [Farxiga] 10 mg PO DAILY
Furosemide [Lasix] 80 mg IV BID AT 0800,1600
Metoprolol Xl [Toprol Xl] 25 mg PO DAILY
Polyethylene Glycol Powder [Miralax] 17 grams PO DAILY
Spironolactone [Aldactone] 12.5 mg PO DAILY
07/15/24 06:00
Complete Blood Count/With Diff IN AM
Comprehensive Metabolic Panel IN AM
07/15/24 11:00
DC Protocol for Telemetry ONCE
07/16/24 06:00
Complete Blood Count/With Diff IN AM
Comprehensive Metabolic Panel IN AM
Abnormal Lab Results
07/13/24 07/13/24
15:53 15:57
RBC 4.45 L 10^6/uL
(4.70-6.10)
RDW 14.8 H %
(11.5-14.5)
MPV 10.5 H fL
(7.4-10.4)
Absolute Neuts (auto) 7.9 H 10^3/uL
(1.4-6.5)
Absolute Monos (auto) 0.7 H 10^3/uL
(0.1-0.6)
Neutrophils % 75.4 H %
(42.2-75.2)
Lymphocytes % 14.9 L %
(20.5-51.1)
BUN 34 H mg/dl
(9-20)
Creatinine 1.4 H mg/dL
(0.7-1.3)
Glucose 182 H mg/dl
(70-99)
Urine Glucose 3+ A
(Negative)
07/13/24 15:53
07/13/24 15:53
Vital Signs
Initial and Last Documented VS:
Initial Vital Signs
Temp Pulse Resp BP Pulse Ox
98.9 F 74 16 108/71 98
07/13/24 15:36 07/13/24 15:36 07/13/24 15:36 07/13/24 15:36 07/13/24 15:36
Last Documented Vital Signs
Temp Pulse Resp BP Pulse Ox
98.0 F 80 18 116/74 94
07/13/24 21:46 07/13/24 21:46 07/13/24 21:46 07/13/24 21:46 07/13/24 21:46
<Daniel Evangelista PA-C - Last Filed: 07/13/24 22:01>
Orders/Labs/Results
Orders:
Orders
07/13/24 Dinner
Cholesterol Lowering
At Your Request: Full Participation
Fluid Restriction: 1200 mL/day (40 oz)
Cholesterol Lowering: Sodium, 2 Gram
07/13/24 15:38
Electrocardiogram (*1) Urgent
Reason for Study: Shortness of Breath
CR Chest - 2 Views Urgent
Comment:
Reason For Exam: HUSSEIN, SOB, new pacemaker
07/13/24 15:53
Basic Metabolic Panel Urgent
Complete Blood Count/With Diff Urgent
NT-proBNP Urgent
07/13/24 15:57
Urinalysis Reflex To Culture Urgent
Date Specimen was Collected: 07/13/24
Time Specimen was Collected: 15:56
07/13/24 17:21
Furosemide [Lasix] 80 mg IV NOW STA
07/13/24 17:22
Potassium Chloride [KCl] 40 meq PO NOW STA
07/13/24 18:24
Venous Doppler Lwr Ext Bilat [US Periph Venous LOWER Ext Yuri] Urgent
Comment:
Reason For Exam: sob
07/13/24 18:26
CARDIOLOGY CONSULT Routine
Consulting Provider: Jamal Gabriel
Was physician already notified: Yes
Reason for consult: pt reported wt gain post pacemaker
07/13/24 18:31
Abdomen Xray - 1 View [CR Abdomen - 1 View] Urgent
Comment:
Reason For Exam: distention constipation
07/13/24 18:34
Admit/Transfer Patient As Directed
Co-Sign Provider:
Level of Care: Inpatient admission
Assign to:: Telemetry
Physician / Group: judson landeros
Transfer to: Telemetry
Diagnosis: acute chf, acute constipation, s/p PPM
Reason for Telemetry: Subacute Heart Failure
Date to Stop Telemetry: 07/15/24
Time to Stop Telemetry: 11:00
Reason for Hospitalization: acute chf, acute constipation, s/p PPM
Expected length of stay greater than two midnights?: Yes
ELOS- Estimated Length of Stay in days: 5
I certify the patient meets the requirements for IP care: Yes
Code Status As Directed
Resuscitation Status: Full Code
07/13/24 18:38
PRN Pain Medication Management As Directed
May give lesser potent ordered pain med per pt: Yes
preference::
Protocol:: Medication orders for pain may be administered in a
manner that supports deferring to patient preference
when the pt is:
- Requesting an ordered lesser potent pain medication.
Least to most potent pain medications are defined
as: acetaminophen < NSAID < tramadol < opioids
(morphine, oxycodone, hydromorphone).
- Requesting a lesser dose of the same medication IF
ORDERED.
- Requesting a less intrusive route of administration
if both routes are prescribed by the provider (PO <
IV).
07/13/24 20:02
COVID-19 Antigen Urgent
Source: Nasal Swab
Influenza A+B Rapid Molecular Urgent
[facility] Source: Nasal Swab
Specimen Description:
07/13/24 21:37
Acetaminophen [Tylenol] 650 mg PO Q4HPRN PRN
Apixaban [Eliquis] 5 mg PO BID
07/13/24 21:37
VTE Contraindication Routine
VTE Mechanical Device Contraindication: Medical Contraindication
Pharmocologic Contraindication: Medical Contraindication
Comment: pt on eliquis
Activity As Directed
Activity Level: With Assistance
Intake/ Output As Directed
Frequency: Per unit guidelines
Vital Signs As Directed
Frequency: q4h
Weight As Directed
Frequency: Daily
Incentive Spirometry [Rx Incentive Spirometry] [RESP] Routine
Frequency: q1h while awake
Pulse Ox/spot Check [RESP] Routine
Quantity: 1
Pt Eval And Treat Routine
Activity Level: As Tolerated
07/13/24 22:00
Latanoprost [Xalatan Ophthalmic Solution] See Dose Instructions RIGHT EYE HS
Rosuvastatin Calcium [Crestor] 10 mg PO HS
Sertraline HCl [Zoloft] 50 mg PO HS
07/14/24 06:00
Complete Blood Count/With Diff IN AM
Comprehensive Metabolic Panel IN AM
07/14/24 08:00
Amiodarone [Pacerone] 200 mg PO DAILY
Aspirin Low Dose EC [Aspir Low (Enteric Coated)] 81 mg PO DAILY
Dapagliflozin [Farxiga] 10 mg PO DAILY
Furosemide [Lasix] 80 mg IV BID AT 0800,1600
Metoprolol Xl [Toprol Xl] 25 mg PO DAILY
Polyethylene Glycol Powder [Miralax] 17 grams PO DAILY
Spironolactone [Aldactone] 12.5 mg PO DAILY
07/15/24 06:00
Complete Blood Count/With Diff IN AM
Comprehensive Metabolic Panel IN AM
07/15/24 11:00
DC Protocol for Telemetry ONCE
07/16/24 06:00
Complete Blood Count/With Diff IN AM
Comprehensive Metabolic Panel IN AM
Abnormal Lab Results
07/13/24 07/13/24
15:53 15:57
RBC 4.45 L 10^6/uL
(4.70-6.10)
RDW 14.8 H %
(11.5-14.5)
MPV 10.5 H fL
(7.4-10.4)
Absolute Neuts (auto) 7.9 H 10^3/uL
(1.4-6.5)
Absolute Monos (auto) 0.7 H 10^3/uL
(0.1-0.6)
Neutrophils % 75.4 H %
(42.2-75.2)
Lymphocytes % 14.9 L %
(20.5-51.1)
BUN 34 H mg/dl
(9-20)
Creatinine 1.4 H mg/dL
(0.7-1.3)
Glucose 182 H mg/dl
(70-99)
Urine Glucose 3+ A
(Negative)
07/13/24 15:53
07/13/24 15:53
Vital Signs
Initial and Last Documented VS:
Initial Vital Signs
Temp Pulse Resp BP Pulse Ox
98.9 F 74 16 108/71 98
07/13/24 15:36 07/13/24 15:36 07/13/24 15:36 07/13/24 15:36 07/13/24 15:36
Last Documented Vital Signs
Temp Pulse Resp BP Pulse Ox
98.0 F 80 18 116/74 94
07/13/24 21:46 07/13/24 21:46 07/13/24 21:46 07/13/24 21:46 07/13/24 21:46
<KRISTINA Leung Last Filed: 07/13/24 22:01>
MDM/Problems Addressed
MDM/Problems Addressed:
Patient is in acute CHF evidenced by volume overload, respiratory insufficiency, and elevated BNP, he is on large dose of diuretics at home this is not suitable for discharge, will admit to the hospitalist service
<Daniel Evangelista PA-C - Last Filed: 07/13/24 22:01>
Comment
Comment:
EKG independently interpreted by me shows an AV paced rhythm at a rate of 75
*Critical Care Note
Total Time (30-74mins, 75-104mins- exclusive of procedures): Not Applicable
ED Attending Note
<Fabian Mejia PA-C - Last Filed: 07/13/24 15:38>
-
Portions of this chart may have been created with voice recognition software.� Occasional wrong word or��sound alike� substitutions may have occurred due to the inherent limitations of voice recognition software.
Discharge Plan
Departure
Patient Disposition: Admit
Date of Disposition: 07/13/24
Time of Disposition: 17:32
Admit to: Telemetry
Presentation/result/management discussed w/ accepting MD/DO: Hospitalist
Discharge Problem:
Acute on chronic HFrEF (heart failure with reduced ejection fraction)
Interventions
Interventions:
*Risk Screen - Suicide Last Done: 07/13/24 21:49
*General Assessment Last Done: 07/13/24 21:36
*Neglect/Abuse Screening Last Done: 07/13/24 15:36
ED- Fall Risk Assessment Last Done: 07/13/24 21:36
*ED COVID-19 Vaccine History Last Done: 07/13/24 20:01
*Nursing Disposition Last Done: 07/13/24 21:36
ED- Pulmonary Assessment Last Done: 07/13/24 17:59
ED- Cardiac Assessment Last Done: 07/13/24 17:59
Discharge Date and Time
Discharge Date/Time: 07/13/24 21:37
[2024-07-13 15:36] VITALS: BP 108/71
[2024-07-13 16:12] LABS: % Basophils 1.2 % (0-2); % Eosinophils 1.5 % (0-6); % Immature Granulocytes 0.3 % (0-0.5); % Lymphocytes 14.9 % (20.5-51.1); % Monocytes 6.7 % (1.7-9.3); % Neutrophils 75.4 % (42.2-75.2); Absolute Basophils 0.1 10^3/uL (0-0.2); Absolute Eosinophils 0.2 10^3/uL (0-0.7); Absolute Lymphocytes 1.6 10^3/uL (1.2-3.4); Absolute Monocytes 0.7 10^3/uL (0.1-0.6); Absolute Neutrophils 7.9 10^3/uL (1.4-6.5); Hematocrit 40.7 % (39.0-52.0); Hemoglobin 13.5 g/dL (13.0-18.0); Mean Corp Hgb Conc. 33.2 g/dL (33.0-37.0); Mean Corpuscular Hgb 30.3 pg (27.0-31.0); Mean Corpuscular Volume 91.5 fL (80.0-94.0); Mean Platelet Volume 10.5 fL (7.4-10.4); Nucleated Red Blood Cells % 0 % (-); Platelet Count 203 10^3/uL (130-400); Red Blood Cell Count 4.45 10^6/uL (4.70-6.10); Red Cell Dist. Width 14.8 % (11.5-14.5); White Blood Cell Count 10.4 10^3/uL (4.8-10.8)
[2024-07-13 16:16] LABS: Urine Albumin Negative (Neg - Trace); Urine Bilirubin Negative (Negative); Urine Character Clear (Clear); Urine Color Yellow; Urine Glucose 3+ (Negative); Urine Ketone Negative (Negative); Urine Leukocyte Negative (Negative); Urine Nitrite Negative (Negative); Urine Occult Blood Negative (Negative); Urine Specific Gravity 1.015 (<1.030); Urine Urobilinogen Negative (Neg - 1+)
[2024-07-13 16:22] LABS: Blood Urea Nitrogen 34 mg/dl (9-20); Calcium 8.8 mg/dl (8.4-10.2); Carbon Dioxide 30 mmol/L (22-30); Chloride 98 mmol/L (98-107); Glucose 182 mg/dl (70-99); Potassium 3.5 mmol/L (3.5-5.1); Sodium 140 mmol/L (135-145); eGFR 52.41
[2024-07-13 16:31] LABS: NT-proBNP 12300 pg/ml
--- NOTE | 2024-07-13 17:52 | HPS.HSE ---
Addendum entered and electronically signed by Reynold Benjamin MD 07/16/24 16:35:
I saw and examined the patient.
The RESPIRATORY CLINICIAN or PA's note was reviewed and I agree with the note.
Comment:
73-year-old male with past medical history of HFrEF with EF of 25%, stage III HFpEF, moderate to severe MR on echo in February, CAD now presents after permanent pacemaker placement 6 days ago with dyspnea exertion while walking.� Has lost 3 pounds since
yesterday although still up from dry weight. Saturating 98% on room air, respiratory rate 16, pulse 74, afebrile.� Serum creatinine 1.4 (1.2 on 07/08) proBNP 1230. �X-ray with mild pulmonary hilar interstitial edema, no clear evidence of pleural
effusions.� Marked dyspnea on exertion, clear to oscillation bilaterally.� Plan, will provide 80 mg twice daily IV Lasix for now, most likely only 1 days as appears only slightly overloaded.� Continue diuretics, monitor BMP.� Follow-up lower
extremity Dopplers due to recent procedure.� Follow-up COVID, flu.
Original Note:
Family Physician
-
Family Physician: Chintan Gonzalez
Chief Complaint
-
Shortness of breath, HUSSEIN
History of Present Illness
73-year-old male status post permanent pacemaker placement 6 days ago who was sent in by Dr. Gabriel's office for dyspnea on exertion with walking a short distance also has abdominal distention. He did report he was constipated for approximately 6
days and finally went yesterday large bowel movement after taking MiraLAX. He feels he still up from his baseline weight, however his current weight is 120.6 kg and it was 122.1 kg on 07/08/2024.
He has past medical history of chronic heart failure with reduced EF, mixed cardiomyopathy ejection fraction 25% with global hypokinesis, stage III diastolic dysfunction with moderate to severe MR per echo 02/16/2024 CAD, HTN, HLD, AAA with AVR in
2009 paroxysmal A-fib, DM2 with diabetic retinopathy and neuropathy, glaucoma, CKD 3 AA pneumonia, renal calculi, pleurisy, arthritis, ocular migraines, anemia, anxiety/depression, COPD, active smoker, alcohol abuse, obesity, obstructive sleep
apnea, LBBB, chronic ambulatory dysfunction with radiculopathy,
Medical History
Past Medical History
Past Medical History: Reports Other
Additional Past Medical History:
Left bundle branch block.
Mixed cardiomyopathy
Chronic diastolic stage III HFrEF 25% with global hypokinesis by echo 02/2024.
Paroxysmal atrial fibrillation.
DM 2/diabetic retinopathy, diabetic neuropathy
CKD 3 A
Hypertension
Hyperlipidemia
Moderate to severe MR per echo 02/16/2024
AAA repair with AVR Bovine 2009.
Chronic ambulatory dysfunction with radiculopathy.
Glaucoma
Depression and anxiety
History of tobacco abuse
Alcohol abuse.
COPD
Obesity
Obstructive sleep apnea intolerant to device
Ocular migraines
Renal calculi
Pleurisy
Arthritis
Past Surgical History: Reports Other
Additional Past Surgical History:
Bioprosthetic AVR bovine 2009
Retinal repair right eye
Veraseal repair
Lumbar discectomy
Social History
Tobacco: Former Smoker (Stop 2022)
Alcohol: Former (Stopped 2022)
Drug: None
Family History
Family History: Other (Mother age 94 failure to thrive father CHF paternal grandfather CHF maternal grandfather esophageal cancer)
Allergies / Home Medications
Allergies reflects when Allergies were last updated in [facility].
Home Medications with original date entered in [facility]
Allergy/Medication List:
Allergies
Allergy/AdvReac Type Severity Reaction Status Date / Time
No Known Allergies Allergy Verified 07/13/24 15:38
Home Medications
metoprolol succinate 25 mg tablet,extended release 24 hr 25 mg PO DAILY Blood pressure 10/01/21
amiodarone 200 mg tablet 200 mg PO DAILY Arrhythmia 07/23/23
apixaban 5 mg tablet (Eliquis) 5 mg PO BID blood thinner 07/23/23
aspirin 81 mg tablet,delayed release 81 mg PO DAILY blood thinner 07/23/23
empagliflozin 10 mg tablet (Jardiance) 10 mg PO DAILY dm 07/23/23
furosemide 80 mg tablet 80 mg PO BID AT 0800,1600 #60 tabs 03/28/24
spironolactone 25 mg tablet 12.5 mg (1/2 x 25 mg) PO DAILY 30 days #15 tabs 03/28/24
sertraline 50 mg tablet (Zoloft) 50 mg PO HS 06/29/24
erythromycin 5 mg/gram (0.5 %) eye ointment 1 applic LEFT EYE DAILY corneal abrasion 07/13/24
latanoprost 0.005 % eye drops 1 drp RIGHT EYE HS 07/13/24
rosuvastatin 20 mg tablet 10 mg PO HS 07/13/24
Review of Systems
-
History Source: Patient and Family (Family at bedside)
A 12 point ROS was completed and negative except as noted: Yes
Constitutional: Reports Weight Loss; Denies Fever or Fatigue
EENT: Denies Sore Throat or Runny Nose
Respiratory: Reports Trouble Breathing (HUSSEIN with short distances); Denies Cough
Cardiac: Denies Chest Pain, Diaphoresis, Palpitations or Syncope
Abdomen/GI: Reports Abdominal Pain (Abdominal distention, reported constipation) and Constipated (6 days had 1 bowel movement yesterday 07/12/2024 with MiraLAX); Denies Nausea, Vomiting or Diarrhea
: Denies Dysuria, Frequency, Flank Pain, Incontinence, Difficulty Voiding or Urgency
Musculoskeletal: Denies Joint Pain or Edema
Skin: Denies Itching or Rash
Neurological: Denies Dizzy, Headache or Weakness
Endocrine: Reports No Symptoms
Hematologic/Lymphatic: Reports No Symptoms
Psych: Reports Calm
Physical Exam
Vital Signs
Vital Signs
Temp Pulse Resp BP Pulse Ox
98.9 F 74 16 108/71 98
07/13/24 15:36 07/13/24 15:36 07/13/24 15:36 07/13/24 15:36 07/13/24 15:36
Physical Exam
General: Comfortable, Conversant and Obese; No Pain, Fever or Chills
HEENT: NormoCephalic, Anicteric, Moist mucous membranes, PERRLA and [place] Conjunctivae
Respiratory: Clear; No Wheezes, Rales or Rhonchi
Cardiac: S1/S2, Regular Rhythm and Other (Left-sided pacemaker site intact Steri-Strips in place no surrounding ecchymosis); No Murmur, Rub, Gallop, Peripheral Edema, Calf Tenderness or JVD
GI: Soft, Non Tender, Normal Bowel Sounds, Distended and No Hepatosplenomegaly
Rectal: Deferred by Provider
Genito-urinary: Deferred by me
Musculoskeletal: No Clubbing, No Cyanosis and No Edema
Skin: Warm and Dry; No Rash or Jaundice
Neuro: AO x 3, No Motor Deficits, Nonfocal/grossly intact, Cranial Nerves Intact and No Sensory Deficits; No Slurred Speech, Facial Droop, Tremors or Sedated
Psych: Calm
Laboratory Results
-
07/13/24 15:53
07/13/24 15:53
Impression/Plan
-
Impression/plan:
Admit to telemetry
#Acute on chronic diastolic stage III heart failure reduced EF 25%
#Mixed cardiomyopathy
With 120.65 kg <122.1 on 07/08/2024
-Consult [facility] cardiology
-Monitor blood pressure with diuresis
-IV Lasix 80 mg twice daily-will need to watch blood pressure with diuresis due to current mild hypotension
-Continue spironolactone 12.5 mg daily
-Check COVID and flu
-Check bilateral leg venous Dopplers
-Cholesterol-lowering, fluid restrict 40 ounce diet
-Incentive spirometry
2D echo 02/2024 HFrEF 25% with global hypokinesis
# Abdominal distention with Acute constipation and CHF
6 days constipation had bowel movement yesterday with single dose MiraLAX
Patient still feels constipated
-Will continue MiraLAX
-check KUB for above
#Status post permanent pacemaker July 07, 2024
Pacemaker site intact Steri-Strips in place no surrounding ecchymosis
#Borderline hypotension/hypertension-benign
108/71
-Continue metoprolol succinate 25 mg daily with hold parameters
#CKD 3 A
Creat 1.4 prior was 1.21 on 07/08/2024
-Follow BMP
#Left bundle branch block hx
#Moderate to severe MR per echo 02/16/2024
#AAA repair with AVR Bovine 2009.
#Paroxysmal atrial fibrillation
-Continue Eliquis 5 mg twice daily, amiodarone 200 mg daily, metoprolol succinate 25 mg daily
#DM 2/diabetic retinopathy, diabetic neuropathy
Accu-Cheks with SSI, check HgbA1c
-Continue Jardiance with hold parameters
#Hyperlipidemia
-Continue Crestor 10 mg at bedtime
#Chronic ambulatory dysfunction with radiculopathy
-Consult PT/OT
#Depression and anxiety
-Continue Zoloft 50 mg at bedtime
#COPD-no acute exacerbation
#History of prior tobacco abuse
Used to smoke cigarettes many years ago then pipes and cigars stopped 2022
-No inhalers listed
#Former alcohol abuse
-Stopped 2022
#Obesity due to excess calorie consumption/heart failure exacerbation�BMI 33.2 kg
-Affects all aspects of care
-Encourage healthy heart diet low-fat
Other PMH:
Obstructive sleep apnea intolerant to device
Glaucoma-continue latanoprost 1 drop right eye at bedtime
Ocular migraines
Renal calculi
Pleurisy
Arthritis
DVT prophylaxis
-Continue [employer] Eliquis 5 mg twice daily
Full code
[2024-07-13 18:02] VITALS: BP 111/69
[2024-07-13] MEDS: KCL 40 MEQ PO (18:03)
[2024-07-13] MEDS: LASIX 80 MG IV (18:03)
[2024-07-13 18:07] VITALS: BMI 33.2
[2024-07-13 20:25] LABS: COVID-19 Antigen Negative (Negative)
[2024-07-13 21:46] VITALS: BP 116/74; BMI 33.7
[2024-07-13 21:55] VITALS: BMI 33.7
[2024-07-13] MEDS: CRESTOR 10 MG PO (23:05)
[2024-07-13] MEDS: ELIQUIS 5 MG PO (23:05)
[2024-07-13] MEDS: ZOLOFT 50 MG PO (23:05)
[2024-07-13] MEDS: XALATAN OPHTHALMIC SOLUTION 1 DROP RIGHT EYE (23:05)
[2024-07-13 23:19] VITALS: BP 107/72
[2024-07-14 03:15] LABS: Glucose - Point of Care 143 mg/dl (70-99)
[2024-07-14 03:38] VITALS: BP 122/73
[2024-07-14 05:25] VITALS: BMI 33.5
[2024-07-14 07:00] VITALS: BP 98/54
[2024-07-14 07:53] LABS: % Basophils 1.2 % (0-2); % Eosinophils 2.9 % (0-6); % Immature Granulocytes 0.3 % (0-0.5); % Lymphocytes 16.7 % (20.5-51.1); % Monocytes 8.2 % (1.7-9.3); % Neutrophils 70.7 % (42.2-75.2); Absolute Basophils 0.1 10^3/uL (0-0.2); Absolute Eosinophils 0.3 10^3/uL (0-0.7); Absolute Lymphocytes 1.5 10^3/uL (1.2-3.4); Absolute Monocytes 0.7 10^3/uL (0.1-0.6); Absolute Neutrophils 6.3 10^3/uL (1.4-6.5); Hematocrit 41.7 % (39.0-52.0); Hemoglobin 13.5 g/dL (13.0-18.0); Mean Corp Hgb Conc. 32.4 g/dL (33.0-37.0); Mean Corpuscular Hgb 30.5 pg (27.0-31.0); Mean Corpuscular Volume 94.1 fL (80.0-94.0); Mean Platelet Volume 10.5 fL (7.4-10.4); Nucleated Red Blood Cells % 0 % (-); Platelet Count 177 10^3/uL (130-400); Red Blood Cell Count 4.43 10^6/uL (4.70-6.10); Red Cell Dist. Width 15.1 % (11.5-14.5); White Blood Cell Count 8.9 10^3/uL (4.8-10.8)
--- NOTE | 2024-07-14 08:38 | CON.CAR ---
Addendum entered and electronically signed by Tushar Abbott MD 07/14/24 12:55:
I saw and examined the patient.
The Installment Agent's note was reviewed and I agree with the note.
Comment: Briefly, 73-year-old man with past medical history of heart failure with reduced ejection fraction who underwent implant of RN FLOAT-D device on 07/07/2024 and has experienced worsening dyspnea since that time concerning for decompensated heart
failure. Patient tells me his weight is up approximately 8 pounds from his dry weight of 260 pounds. Here his chest x-ray shows mild pulmonary edema and vascular congestion. proBNP greater than 12,000. All of this suggestive of decompensated
heart failure.
Agree with IV diuresis
Patient tells me he has not responded to the diuretics thus far and therefore may need to increase Lasix dose
Follow renal function closely
Continue home GDMT�beta-vicky, MRA, SGLT2
Check transthoracic echocardiogram to assess for pericardial effusion post procedure from pacemaker implant
Rest per Marie Tavarez
Original Note:
Consultation
Consultation Request
Date/Time Consultation Requested: 07/13/2024
Date/Time Consultation Performed: 07/13/2024
Requesting Provider: MALA Trejo
Performing Provider: Marie Tavarez PA-C for Dr. Tushar Abbott
Reason for Consultation: SOB
Medical History
-
Chief Complaint: Shortness of breath and cough
History of Present Illness:
Patient is a 73 YOM with male with past medical history significant for CAD status post CABG x 1 and AVR 2009, paroxysmal atrial fibrillation not on chronic anticoagulation, obstructive sleep apnea with intolerance to CPAP, mixed cardiomyopathy,
left bundle branch block, ventricular tachycardia status post biventricular ICD June 2024, chronic heart failure with reduced ejection fraction, hypertension, hyperlipidemia, type 2 diabetes who presents to emergency department 07/13/2024 with
progressively worsening dyspnea on exertion and abdominal distention since ICD implant. Patient was recently here for ICD implant 07/07/2024. He was noted to be mildly volume overloaded and did receive 1 dose of IV Lasix at that time. However he
now presents with worsening dyspnea on exertion and abdominal distention over the last week. When seen in the office for incision check is weight was up 7 lbs. He does admit to being constipated and finally was able to have a bowel movement
yesterday. However symptoms persisted prompting him to come to emergency department. proBNP 12,300. Chest x-ray showed no acute abnormality. Lower extremity Doppler NAD was negative for DVT. X-ray of abdomen showed mild fecal material in right
colon without intestinal obstruction. He was provided IV Lasix 80 mg in emergency department with potassium repletion.
At time of this evaluation he notes he did feel restless sleeping last night but denies SOB at rest.
PMH:
Mixed cardiomyopathy
LBBB
H/o Nonsustained V. tach
Status post biventricular ICD 07/07/2024
Chronic heart failure with reduced ejection fraction
History of COVID September 2021
HTN
HLD
DM2
CAD s/p 1 vessel CABG
s/p bioAVR
History of atrial fibrillation status post cardioversion 07/23/2023
not chronically anticoagulated
JAMES not using CPAP
H/o Cough syncope
hiatal hernia
Neuropathy
Radiculopathy
depression
Ocular migraines
Renal calculi
Pleurisy
Arthritis
Past Medical History
Past Medical History: Other (See HPI)
Past Surgical History: Cardiac (CABG x 1 and aortic valve replacement 2009) and Other (Varicocele repair, lumbar discectomy April 2022, retinal detachment)
Social History
Tobacco: Smoker (Occasional cigar)
Alcohol: Daily
Drug: None
Personal:
Living: With Family
Employment: Retired
Family History
Family History: Cancer, Diabetes and Other (Father from CHF at age 82, mother at 94)
Allergies / Home Medications
Allergy/AdvReac Type Severity Reaction Status Date / Time
No Known Allergies Allergy Verified 07/13/24 15:38
�Medication �Instructions �Recorded �Confirmed �Type
metoprolol succinate 25 mg 25 mg PO DAILY Blood pressure 10/01/21 07/13/24 History
tablet,extended release 24 hr
amiodarone 200 mg tablet 200 mg PO DAILY Arrhythmia 07/23/23 07/13/24 History
apixaban 5 mg tablet (Eliquis) 5 mg PO BID blood thinner 07/23/23 07/13/24 History
aspirin 81 mg tablet,delayed 81 mg PO DAILY blood thinner 07/23/23 07/13/24 History
release
empagliflozin 10 mg tablet 10 mg PO DAILY dm 07/23/23 07/13/24 History
(Jardiance)
furosemide 80 mg tablet 80 mg PO BID AT 0800,1600 #60 tabs 03/28/24 07/13/24 Rx
spironolactone 25 mg tablet 12.5 mg (1/2 x 25 mg) PO DAILY 30 03/28/24 07/13/24 Rx
days #15 tabs
sertraline 50 mg tablet (Zoloft) 50 mg PO HS 06/29/24 07/13/24 History
erythromycin 5 mg/gram (0.5 %) eye 1 applic LEFT EYE DAILY corneal 07/13/24 07/13/24 History
ointment abrasion
latanoprost 0.005 % eye drops 1 drp RIGHT EYE HS 07/13/24 07/13/24 History
rosuvastatin 20 mg tablet 10 mg PO HS 07/13/24 07/13/24 History
Review of Systems
-
History Source: Patient
All other systems: Negative unless noted
Physical Exam
Vital Signs
Temp Pulse Resp BP Pulse Ox
97.8 F 72 18 98/54 96
07/14/24 07:00 07/14/24 07:00 07/14/24 07:00 07/14/24 07:00 07/14/24 07:00
GEN: No distress, awake, Ox3, lying in bed
HEENT: supple, anicteric, mmm
LUNGS: CTA, no wheezes/rales, on room air
CV: Reg, S1/S2, 1/6 syst murmur at apex
Chest: ICD incision site well-approximated without evidence of infection, eczema ecchymosis or hematoma
ABD: soft, BS+, NT/ND
EXT: No edema, clubbing or cyanosis
NEURO: Gross non-focal
SKIN: No rash, warm, dry, pain
Lab Results
07/14/24 07:33
Kiu-N-Unjruwnmrsl Pept [id number] pg/ml 07/13/24 15:53
Impression / Plan
-
PCP: Dr. Chitnan Gonzalez
Cardiology: Dr. Gabriel
Impression
Presented 07/13/2024 dyspnea on exertion and abdominal distention
Acute heart failure with reduced ejection fraction, proBNP 12,300
JAI
Cardiomyopathy, mixed without improved ejection fraction despite optimal medical therapy
s/p Med[employer]onic biventricular ICD 07/07/2024
LBBB
H/o Nonsustained V. tach
Chronic heart failure with reduced ejection fraction
History of atrial fibrillation status post cardioversion 07/23/2023
History of COVID September 2021
HTN
HLD
DM2
CAD s/p 1 vessel CABG 2009
s/p bioAVR 2009
JAMES not using CPAP
H/o Cough syncope
Radiculopathy
depression
Ocular migraines
Renal calculi
Pleurisy
Arthritis
Echo 02/16/2024: EF 25%. Global hypokinesis with basal inferior and basal inferolateral akinesis. Stage III diastolic dysfunction. Moderate to severe MR. Severely dilated left atrium. #23 bovine aortic valve with peak/mean gradient 46/29 mmHg.
Mild AI. Mild TR. PAP 35 mmHg
Echocardiogram 08/03/2023: Ejection fraction 25 to 30%, hypokinetic septum, apex, inferior, anterior and distal lateral pelletier, mild concentric LVH, moderate MR, status post bioprosthetic AVR with mean gradient of 13 mm hG
Echocardiogram 06/28/2023: Dilated right ventricle with ejection fraction of 20 to 25%, status post bioprosthetic AVR with mean gradient of 15 mmHg, dilated right heart with PA systolic of 45 mmHg
Echocardiogram January 2022: Ejection fraction 40%, global hypokinesis, status post AVR with mean gradient of 10 mmHg
Cardiac catheterization 03/28/2024: LM: LI. LAD: Moderate to severe diffuse atherosclerotic plaque. D2 has 30% stenosis. Left circumflex: Mid 60 to 70% stenosis. RCA: LI.
HEMODYNAMICS : (mmHg) RA (m) : 22; RV (s/d,m) : 72/14, 24; PA (s/d, m) : 72/34, 50; PCWP (m) : 34, V waves to 53 mmHg; PA saturation: 62.5% on room air; AO saturation: 93.6% on room air;
Cardiac Output : 5.58 L/min; Cardiac Index : 2.23 L/min/m-2; Systemic vascular resistance: 889 dsc^(-5); Pulmonary vascular resistance: 2.87 willams unit; AO (s/d) : 102/61; LV (s/d) : 131/21; LVEDP : 30
Estimated invasive transaortic gradient of 27 mmHg, aortic valve area 1.3 cm�
Significantly elevated right and left-sided filling pressures with severe pulmonary hypertension and normal cardiac output. Borderline low systemic vascular resistance.
Lexiscan sestamibi stress test 07/13/2023: Moderate sized medium in severity fixed basal to distal inferior, basal to mid inferoseptal, small mid anterior perfusion defect with no evidence of ischemia. Ejection fraction 21% with severe global
hypokinesis
Plan:
-Presented 07/13/2024 dyspnea on exertion, weight gain and abdominal distention
-Acute heart failure with reduced ejection fraction, proBNP 12,300. Patient notes some response with 1 pound weight loss overnight. Would continue IV diuresis with Lasix 80 mg IV twice daily for another 24 hours
-Monitor and trend renal function and electrolytes
-Creatinine initially 1.4, currently 1.5. Continue close monitoring of renal function
-Aggressive repletion of magnesium and potassium given history of NSVT. K greater than 4, mag greater than 2; no arrhythmias noted on telemetry overnight
-Will give 40 mEq of potassium today
-Check mag level
-S/p BiVICD 07/07 - incision looks great. Given SOB that is new since implant will check limited echo to rule out effusion
-ICD interrogated in office 07/13/24 with stable thresholds and no arrhythmias; unfortunately given device especially implanted no available data on OptiVol fluid index
-Continue amiodarone for history of NSVT and atrial fibrillation
-Continue Eliquis 07/09/2024 in am
-Continue GDMT with Toprol, Aldactone, Jardiance.
-Hypotension has prevented initiation of LYNDSEY/ARB in past. Blood pressure remains on the low side. Continue to monitor and trend
-EKG shows biventricular paced rhythm.
HPI 07/14/2024
Patient is a 73 YOM with male with past medical history significant for CAD status post CABG x 1 and AVR 2009, paroxysmal atrial fibrillation not on chronic anticoagulation, obstructive sleep apnea with intolerance to CPAP, mixed cardiomyopathy,
left bundle branch block, ventricular tachycardia status post biventricular ICD June 2024, chronic heart failure with reduced ejection fraction, hypertension, hyperlipidemia, type 2 diabetes who presents to emergency department 07/13/2024 with
progressively worsening dyspnea on exertion and abdominal distention since ICD implant. Patient was recently here for ICD implant 07/07/2024. He was noted to be mildly volume overloaded and did receive 1 dose of IV Lasix at that time. However he
now presents with worsening dyspnea on exertion and abdominal distention over the last week. When seen in the office for incision check is weight was up 7 lbs. He does admit to being constipated and finally was able to have a bowel movement
yesterday. However symptoms persisted prompting him to come to emergency department. proBNP 12,300. Chest x-ray showed no acute abnormality. Lower extremity Doppler NAD was negative for DVT. X-ray of abdomen showed mild fecal material in right
colon without intestinal obstruction. He was provided IV Lasix 80 mg in emergency department with potassium repletion.
At time of this evaluation he notes he did feel restless sleeping last night but denies SOB at rest. :
Data Reviewed
-
EKG: Report Reviewed by me, Discussed with Physician, Discussed with Nurse and Discussed with Patient
Radiology: Report Reviewed by me, Discussed with Physician, Discussed with Nurse and Discussed with Patient
Labs: Labs Reviewed by me, Discussed with Physician, Discussed with Nurse and Discussed with Patient
Old Records: Reviewed
[2024-07-14] MEDS: ELIQUIS 5 MG PO (08:49)
[2024-07-14] MEDS: FARXIGA 10 MG PO (08:49)
[2024-07-14] MEDS: ASPIR LOW (ENTERIC COATED) 81 MG PO (08:49)
[2024-07-14] MEDS: ALDACTONE 12.5 MG PO (08:50)
[2024-07-14] MEDS: PACERONE 200 MG PO (08:50)
[2024-07-14] MEDS: FLUSH (NSS) 1 FLUSH IV ×2 (08:51→16:26)
[2024-07-14] MEDS: LASIX 80 MG IV ×2 (08:51→16:26)
[2024-07-14 08:56] LABS: ALT (SGPT) 29 U/L (0-50); AST (SGOT) 32 U/L (17-59); Albumin 4.2 g/dl (3.5-5.0); Alkaline Phosphatase 62 U/L (38-126); Blood Urea Nitrogen 33 mg/dl (9-20); Calcium 9.1 mg/dl (8.4-10.2); Carbon Dioxide 33 mmol/L (22-30); Chloride 98 mmol/L (98-107); Estimated Creatinine Clearance 60 ml/min; Glucose 138 mg/dl (70-99); Potassium 4.1 mmol/L (3.5-5.1); Sodium 143 mmol/L (135-145); Total Protein 6.8 g/dl (6.3-8.2); eGFR 48.25
[2024-07-14 09:03] LABS: Glucose - Point of Care 172 mg/dl (70-99)
[2024-07-14 09:25] LABS: Magnesium 2.5 mg/dl (1.6-2.3)
[2024-07-14] MEDS: NOVOLOG FLEXPEN-LOW RESISTANCE 1 UNITS SC ×2 (10:02→13:14)
[2024-07-14] MEDS: KCL 40 MEQ PO (10:02)
[2024-07-14 10:33] LABS: Glycohemoglobin (HgbA1c) 7.2 % (4.0-5.6)
[2024-07-14 10:44] VITALS: BP 115/72; PULSE 78; O2SAT 97
--- NOTE | 2024-07-14 10:50 | PTOTSP ---
Pt feels better today. He is independent with ambulation on level surface and stairs without need for any assistive device. No acute PT needs were identified. PT will sign off.
[2024-07-14 11:00] VITALS: BP 120/78
[2024-07-14 11:02] VITALS: BMI 33.5
[2024-07-14 13:13] LABS: Glucose - Point of Care 167 mg/dl (70-99)
--- NOTE | 2024-07-14 13:44 | CM ---
CM following for DC planning needs.
Met with Eron and his spouse at bedside to complete initial assessment.
Eron lives with his in a multi level home.
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
Eron has RX plan and uses [facility] or mail order thru [facility].
Eron had a pacemaker placed last week and returned to the hospital with exertional dyspnea and
Anticipated DC plan is for home, no needs pending PT/OT evals. Watch for VN
--- NOTE | 2024-07-14 15:48 | CARDSERVLU ---
Echocardiogram with Lumason completed after protocol screening completed. Allergies verified.
Patent IV site: _Rt FA____
IV site flushed with 0.9% NaCl pre and post administration.
Diluted bolus method utilized to enhance visualization of ventricular pelletier.
Total volume given: ___1.5 mL
Patient tolerated all procedures well without complications.
[2024-07-14 16:00] VITALS: BP 116/79
--- NOTE | 2024-07-14 16:24 | PTCARENOTE ---
Pt AAO x3, CHEATHAM well, OOB in room/flores, jorge well. VSS. Telemetry:V-paced rhythm. On room air- pulse ox 96%, no SOB noted. Abd large, soft, jorge PO. Voids mod amts clear lt aylin urine in urinal. Resting in chair at present, no c/o. Will
continue to monitor.
[2024-07-14 16:45] LABS: Glucose - Point of Care 143 mg/dl (70-99)
[2024-07-14] MEDS: NOVOLOG FLEXPEN-LOW RESISTANCE SC (17:11)
[2024-07-14 19:03] VITALS: BP 109/71
--- NOTE | 2024-07-14 19:51 | PTCARENOTE ---
Pt very angry that he was not DC'd today; stated 'I was told that I could go home after my ECHO. I've wasted 2 days sitting in here'. Pt stated scrap baller did not speak with him re: ECHO result. Pt wants to leave AMA. DR. Diaz notified.
Greta MEDEIROS notified .
--- NOTE | 2024-07-14 20:30 | PTCARENOTE ---
Pt wants to go home. Melanie RN (Kasia) contacted cardiology via tiger text, apparently they wwant the pt to stay, but pt insists that he is leaving. MALA (Gauri Kasper) on the floor to talk to the pt. Pt decides to leave. Pt taken to the main lobby
via wheelchair. Pt's is to pick him up.
--- NOTE | 2024-07-14 20:38 | W.PN.UPDATE ---
Update Note
Progress Note Update
RN reported patient wants to leave, Gifted Teacher is aware per RN.
Patient seen, Oriented x3 and able to make decisions.
Risks discussed with patient, patient verbalized understanding, Read AMA form and signed, Patient left AMA.
--- NOTE | 2024-07-16 16:31 | W.PN.HOSP.TC ---
Addendum entered and electronically signed by Reynold Benjamin MD 07/16/24 16:37:
[id number]
Date of progress note billin/6
Original Note:
Today's Communication/Plan
-
cont diuresis
Assessment / Plan
Assessment / Plan
Physical Exam
General: Comfortable, Conversant and Obese; No Pain, Fever or Chills
HEENT: NormoCephalic, Anicteric, Moist mucous membranes, PERRLA and [place] Conjunctivae
Respiratory: Clear; No Wheezes, Rales or Rhonchi
Cardiac: S1/S2, Regular Rhythm and Other (Left-sided pacemaker site intact Steri-Strips in place no surrounding ecchymosis); No Murmur, Rub, Gallop, Peripheral Edema, Calf Tenderness or JVD
GI: Soft, Non Tender, Normal Bowel Sounds, Distended and No Hepatosplenomegaly
Rectal: Deferred by Provider
Genito-urinary: Deferred by me
Musculoskeletal: No Clubbing, No Cyanosis and No Edema
Skin: Warm and Dry; No Rash or Jaundice
Neuro: AO x 3, No Motor Deficits, Nonfocal/grossly intact, Cranial Nerves Intact and No Sensory Deficits; No Slurred Speech, Facial Droop, Tremors or Sedated
Psych: Calm
#Acute on chronic diastolic stage III heart failure reduced EF 25%
#Mixed cardiomyopathy
With 120.65 kg <122.1 on 07/08/2024
-Consult [facility] cardiology
-Monitor blood pressure with diuresis
-IV Lasix 80 mg twice daily-will need to watch blood pressure with diuresis due to current mild hypotension
-Continue spironolactone 12.5 mg daily
-Check COVID and flu
-Check bilateral leg venous Dopplers - negative
2D echo 02/2024 HFrEF 25% with global hypokinesis - similar on this ECHO on 07/14
# Abdominal distention with Acute constipation and CHF
6 days constipation had bowel movement yesterday with single dose MiraLAX
Patient still feels constipated
-Will continue MiraLAX
-stool in colon
#Status post permanent pacemaker July 07, 2024
Pacemaker site intact Steri-Strips in place no surrounding ecchymosis
#Borderline hypotension/hypertension-benign
108/71
-Continue metoprolol succinate 25 mg daily with hold parameters
#CKD 3 A
Creat 1.4 prior was 1.21 on 07/08/2024
-Follow BMP
#Left bundle branch block hx
#Moderate to severe MR per echo 02/16/2024
#AAA repair with AVR Bovine 2009.
#Paroxysmal atrial fibrillation
-Continue Eliquis 5 mg twice daily, amiodarone 200 mg daily, metoprolol succinate 25 mg daily
#DM 2/diabetic retinopathy, diabetic neuropathy
Accu-Cheks with SSI, check HgbA1c
-Continue Jardiance with hold parameters
#Hyperlipidemia
-Continue Crestor 10 mg at bedtime
#Chronic ambulatory dysfunction with radiculopathy
-Consult PT/OT
#Depression and anxiety
-Continue Zoloft 50 mg at bedtime
#COPD-no acute exacerbation
#History of prior tobacco abuse
Used to smoke cigarettes many years ago then pipes and cigars stopped 2022
-No inhalers listed
#Former alcohol abuse
-Stopped 2022
#Obesity due to excess calorie consumption/heart failure exacerbation�BMI 33.2 kg
-Affects all aspects of care
-Encourage healthy heart diet low-fat
Other PMH:
Obstructive sleep apnea intolerant to device
Glaucoma-continue latanoprost 1 drop right eye at bedtime
Ocular migraines
Renal calculi
Pleurisy
Arthritis
DVT prophylaxis
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
Full code
Anticipated Discharge: Within 24 hours
Subjective/Interval History
-
Date of Service: July 14, 2024
Patient symptoms improved although still there
Objective Data
-
Vital Signs:
Vital Signs
Temp Pulse Resp BP Pulse Ox
97.8 F 80 19 109/71 96
07/14/24 19:03 07/14/24 19:03 07/14/24 19:03 07/14/24 19:03 07/14/24 19:03
I&O
07/15/24 07/16/24 07/17/24
06:59 06:59 06:59
Intake Total 900 / 900
Output Total 1200 / 1200
Balance -300 / -300
Review of Systems
-
History Source: Patient
All other systems: Not reviewed unless documented
Data Reviewed
-
Diagnostic Radiology: Report Reviewed by me
Labs: Labs Reviewed by me
== END 2024-07-14 20:30 | disposition left against medical advice (07) | DRG 291 ==
LOC: 4 EAST ACU 19:14
PROVIDERS: Clinical Nurse Specialist Family Health; Physician Assistant Medical; ADMITTING PHYSICIAN Internal Medicine; ATTENDING PHYSICIAN Internal Medicine; EMERGENCY PHYSICIAN Emergency Medicine; FAMILY PHYSICIAN Family Medicine; OTHER PHYSICIAN Internal Medicine Cardiovascular Disease
DX: I13.0 Hypertensive heart and chronic kidney disease with heart failure and stage 1 through stage 4 chronic kidney disease, or unspecified chronic kidney disease (principal); I50.43 Acute on chronic combined systolic (congestive) and diastolic (congestive) heart failure; J44.0 Chronic obstructive pulmonary disease with (acute) lower respiratory infection; N17.9 Acute kidney failure, unspecified; I42.9 Cardiomyopathy, unspecified; Z95.0 Presence of cardiac pacemaker; Z95.1 Presence of aortocoronary bypass graft; Z95.3 Presence of xenogenic heart valve; K59.00 Constipation, unspecified; I25.10 Atherosclerotic heart disease of native coronary artery without angina pectoris; D64.9 Anemia, unspecified; N18.31 Chronic kidney disease, stage 3a; Z87.442 Personal history of urinary calculi; F17.290 Nicotine dependence, other tobacco product, uncomplicated; F10.10 Alcohol abuse, uncomplicated; E78.00 Pure hypercholesterolemia, unspecified; I48.0 Paroxysmal atrial fibrillation; E11.319 Type 2 diabetes mellitus with unspecified diabetic retinopathy without macular edema; E11.40 Type 2 diabetes mellitus with diabetic neuropathy, unspecified; E11.22 Type 2 diabetes mellitus with diabetic chronic kidney disease; H40.9 Unspecified glaucoma; M19.90 Unspecified osteoarthritis, unspecified site; G43.109 Migraine with aura, not intractable, without status migrainosus; F41.9 Anxiety disorder, unspecified; F32.A Depression, unspecified; E66.09 Other obesity due to excess calories; Z68.33 Body mass index [BMI] 33.0-33.9, adult; G47.33 Obstructive sleep apnea (adult) (pediatric); I44.7 Left bundle-branch block, unspecified; M54.10 Radiculopathy, site unspecified; I27.20 Pulmonary hypertension, unspecified; Z79.01 Long term (current) use of anticoagulants; Z79.82 Long term (current) use of aspirin; Z79.84 Long term (current) use of oral hypoglycemic drugs; Z79.899 Other long term (current) drug therapy; Z80.0 Family history of malignant neoplasm of digestive organs; Z82.49 Family history of ischemic heart disease and other diseases of the circulatory system; Z86.16 Personal history of COVID-19; Z11.52 Encounter for screening for COVID-19; Z53.29 Procedure and treatment not carried out because of patient's decision for other reasons
CPT/HCPCS: 93308; 71046; 74018; 80048; 80053; 81003; 82962; 83036; 83735; 83880; 85025; 87502; 87811; 93005; 93321; 93325; 93970; 96374; 97162; 99285; Q9950

== ENCOUNTER 2024-07-29 17:28 | Inpatient (IN) | payer MEDICARE, SELFPAY ==
[2024-07-29 14:18] VITALS: BP 107/75
[2024-07-29] MEDS: LASIX 100 MG IV (16:28)
[2024-07-29 16:34] VITALS: BP 116/91; BMI 34.2
--- NOTE | 2024-07-29 16:35 | ED.GENMED ---
History of Present Illness
General
Chief Complaint: Breathing Problem
Source: patient, records and previous hospital records
Exam Limitations: none
Time Seen by Provider: 07/29/24 15:30
Nursing documentation reviewed up to this point in time: agreed with
History of Present Illness
History of Present Illness:
74-year-old male patient with Dr. Gabriel pacemaker CHF referred by his PCP due to increased weight increase abdominal distention congestive heart failure has been on Lasix 80 mg twice a day is admitted a few weeks ago with similar, no nausea or
vomiting no chest pain but does get short of breath when he walks and goes up the stairs, patient outpatient blood work and chest x-ray today around noon after PCP visit
Past History
Past History
ED Past Medical History: CAD, HTN, Hypercholesterolemia, Valvular disease and Other (Pneumonia, kidney stones, pleurisy, arthritis, ocular migraines, anemia, depression)
ED Past Surgical History: Cardiac
Social History
Tobacco: Smoker
Alcohol: None
Drug: None
Personal:
Living: with family
Employment: Retired
Review of Systems
Review of Systems
All Other Systems: Not applicable
Constitutional: Reports fatigue; Denies fever
EENT: Reports no symptoms
Cardiac: Denies chest pain or syncope
ABD/GI: Reports abdominal pain (Distention)
: Reports no symptoms
Musculoskeletal: Reports no symptoms
Skin: Reports no symptoms
Neurological: Reports weakness
Endocrine: Reports no symptoms
Phy Exam
Physical Exam
Physical Exam:
Physical Exam
General: 74 male sitting upright coughing
Neck: No jaundice
Heart: Regular
Lungs: Bibasilar crackles
Abdomen: Distended without a
Neuro: alert and oriented. no focal neurological deficits
Skin: no rash
Psychiatric: well kept. interactive and cooperative
Extremities: Trace edema
Scores
Heart Failure Risk
Heart Failure Risk Score: Yes
History of Stroke or TIA: No
History of intubation for respiratory distress: No
Heart rate on ED arrival >/= 110: No
SaO2 <90% on arrival on room air: No
HR >/=110 during 3min walk test (or too ill to perform test): Yes
ECG has acute ischemic changes: No
Urea >/=12mmol/L (BUN 33.6mg/dL): Yes
Serum CO2>/=35mmol/L: No
Troponin I or T elevated to NV Level (0.4mg/dL): No
NT-proBNP >/=5,000ng/L (5,000pg/ml): Yes
HF Risk Score: 4
Admission Status: HIGH RISK 26.1% Consider SNF treatment or admission to hospital
Course
Orders/Labs/Results
Orders:
Orders
07/29/24 14:14
EKG [Electrocardiogram (*1)] Urgent
Reason for Study: Chest Pain
EKG- Treatment ONCE
07/29/24 16:19
Furosemide [Lasix] 100 mg IV NOW STA
Potassium Chloride [KCl] 40 meq PO NOW STA
07/29/24 16:20
Add On- LAB Urgent
Tests Added?: magnesium
Vital Signs
Initial and Last Documented VS:
Initial Vital Signs
Temp Pulse Resp BP Pulse Ox
98.5 F 83 18 107/75 98
07/29/24 14:18 07/29/24 14:18 07/29/24 14:18 07/29/24 14:18 07/29/24 14:18
Last Documented Vital Signs
Temp Pulse Resp BP Pulse Ox
98.5 F 77 18 110/87 96
07/29/24 14:18 07/29/24 16:28 07/29/24 14:18 07/29/24 16:28 07/29/24 16:32
MDM/Problems Addressed
Differential Diagnosis Includes:
Heart failure valvulopathy no signs of pneumonia renal failure multifactorial dyspnea COPD pericardial effusion
MDM/Problems Addressed:
Shortness of breath fatigue weight gain
Chronic conditions affecting care: DM, HTN, Cardiomyopathy and Arrhythmia
Acute Exacerbation and/or Progression of Chronic Illness: DM, HTN, CAD, Cardiomyopathy and Arrhythmia
*Radiology
Radiology exam reviewed: radiology read reviewed
*Pulse Oximetry
Patient hypoxic: no
*EKG
Interpreted by ED Provider?: Yes
Interpretation: abnormal
Comparison EKG: no comparison EKG present
Heart Rate: 70
Rate: normal
Rhythm: ventricular paced
Ischemia: non-specific ST changes
*Insurance Salesman Interpretation
Rate: normal
Interpretation: normal
Heart Rate: 70
Rhythm: ventricular paced
*Critical Care Note
Total Time (30-74mins, 75-104mins- exclusive of procedures): Not Applicable
Data Reviewed
Review of Other/Old Records Reveals: Labs, Radiology Studies and Discharge Summary
Source: patient and records
Prescriptions/Medications Considered But Not Given:
Bumex metolazone
Further Testing Considered But Not Given:
Echo
Patient Management
Social determinants of health affecting care: Living situation and Strong social support
Discussion with other providers: Hospitalist
Escalation/DeEscalation of care consider admission/obs:
Patient with significant symptoms despite 80 mg of Lasix twice a day, sent in for evaluation admission by his PCP
ED Attending Note
-
Portions of this chart may have been created with voice recognition software.� Occasional wrong word or��sound alike� substitutions may have occurred due to the inherent limitations of voice recognition software.
Discharge Plan
Departure
Patient Disposition: Admit
Date of Disposition: 07/29/24
Time of Disposition: 16:43
Admit to: Telemetry
Presentation/result/management discussed w/ accepting MD/DO: Hospitalist
Patient with high blood pressure during this ER visit?: No
Condition: Fair
Covid-19: Not Applicable
Discharge Problem:
Acute systolic (congestive) heart failure, Chronic systolic (congestive) heart failure, Paroxysmal atrial fibrillation, Diabetes, CAD (coronary artery disease), Hypertension, Hyperlipemia, Acute on chronic HFrEF (heart failure with reduced ejection
fraction), Respiratory insufficiency, CHF (congestive heart failure)
Prescriptions:
No Action
metoprolol succinate 25 MG tablet extended release 24 hr
25 mg PO DAILY
amiodarone 200 mg Tablet
200 mg PO DAILY
aspirin 81 mg Tablet,Delayed Release (Dr/Ec)
81 mg PO DAILY
Jardiance 10 mg Tablet
10 mg PO DAILY
Eliquis 5 MG tablet
5 mg PO BID
furosemide 80 mg tablet
80 mg PO BID AT 0800,1600 Qty: 60 6RF
spironolactone 12.5 MG tablet
12.5 mg PO DAILY 30 Days Qty: 15 6RF
sertraline [Zoloft] 50 mg Tablet
50 mg PO HS
latanoprost 0.005 % drops
1 drp RIGHT EYE HS
rosuvastatin 20 mg tablet
10 mg PO HS
erythromycin 5 mg/gram (0.5 %) ointment
1 applic LEFT EYE DAILY
Rx Instructions:
apply to affected eye
Referrals:
Chintan Gonzalez MD [Family Provider] -
Interventions
Interventions:
*Risk Screen - Suicide Last Done: 07/29/24 14:18
*General Assessment Last Done: 07/29/24 14:18
*Neglect/Abuse Screening Last Done: 07/29/24 14:18
*ED COVID-19 Vaccine History Last Done: 07/29/24 14:18
ED- Cardiac Assessment Last Done: 07/29/24 16:32
ED- Pulmonary Assessment Last Done: 07/29/24 16:32
Discharge Date and Time
Print Language: KENYAN
[2024-07-29] MEDS: KCL 40 MEQ PO (16:58)
[2024-07-29 17:00] VITALS: BP 105/81
--- NOTE | 2024-07-29 17:11 | HPS.HSE ---
Addendum entered and electronically signed by Lonnie Araiza MD 07/30/24 12:18:
Weight
Error: <del>124</del> <del>kg</del> <del>on</del> <del>07/14/24</del> <del>---></del> <del>121.676</del> <del>kg</del> <del>today</del> <del>07/29/24</del>
<del>Correction:</del> 121.676 kg 07/14/24 -----> 124 kg on on 07/29/24 admission
Addendum entered and electronically signed by Lonnie Araiza MD 07/30/24 12:15:
Addendum: wrong entry - will scratched
<del>CTA:</del> <del>No</del> <del>PE.</del> <del>Left</del> <del>pleural</del> <del>effusion</del> <del>with</del> <del>atelectasis</del>
<del>Stopping</del> <del>vancomycin</del> <del>due</del> <del>to</del> <del>possible</del> <del>allergic</del> <del>reaction</del>
Addendum entered and electronically signed by Lonnie Araiza MD 07/29/24 23:11:
Addendum:
CTA: No PE. Left pleural effusion with atelectasis
Stopping vancomycin due to possible allergic reaction
Original Note:
Family Physician
-
Family Physician: Chintan Gonzalez
Chief Complaint
-
- increased weight
History of Present Illness
74M HX CHF/ Chr HFrEF , PPM , Bovine AoVR seen at ER via PCP;
- increased weight
- increase abdominal distention
- He was admitted 07/13 for acute on chr HFrEF
- He left AMA on 07/14 with
- reports short of breath when he walks and goes up the stairs
- Patient outpatient blood work and chest x-ray today around noon after PCP visit
Medical History
Past Medical History
Past Medical History: Reports Other
Additional Past Medical History:
Left bundle branch block.
Mixed cardiomyopathy
Chronic diastolic stage III HFrEF 25% with global hypokinesis by echo 02/2024.
Paroxysmal atrial fibrillation.
DM 2/diabetic retinopathy, diabetic neuropathy
CKD 3 A
Hypertension
Hyperlipidemia
Moderate to severe MR per echo 02/16/2024
AAA repair with AVR Bovine 2009.
Chronic ambulatory dysfunction with radiculopathy.
Glaucoma
Depression and anxiety
History of tobacco abuse
Alcohol abuse.
COPD
Obesity
Obstructive sleep apnea intolerant to device
Ocular migraines
Renal calculi
Pleurisy
Arthritis
Past Surgical History: Reports Other
Additional Past Surgical History:
Bioprosthetic AVR bovine 2009
Retinal repair right eye
Veraseal repair
Lumbar discectomy
Social History
Tobacco: Former Smoker (Stop 2022)
Alcohol: Former (Stopped 2022)
Drug: None
Family History
Family History: Other (Mother age 94 failure to thrive father CHF paternal grandfather CHF maternal grandfather esophageal cancer)
Allergies / Home Medications
Allergies reflects when Allergies were last updated in [facility].
Home Medications with original date entered in [facility]
Allergy/Medication List:
Allergies
Allergy/AdvReac Type Severity Reaction Status Date / Time
No Known Allergies Allergy Verified 07/13/24 15:38
Home Medications
metoprolol succinate 25 mg tablet,extended release 24 hr 25 mg PO DAILY Blood pressure 10/01/21
amiodarone 200 mg tablet 200 mg PO DAILY Arrhythmia 07/23/23
apixaban 5 mg tablet (Eliquis) 5 mg PO BID blood thinner 07/23/23
aspirin 81 mg tablet,delayed release 81 mg PO DAILY blood thinner 07/23/23
empagliflozin 10 mg tablet (Jardiance) 10 mg PO DAILY dm 07/23/23
furosemide 80 mg tablet 80 mg PO BID AT 0800,1600 #60 tabs 03/28/24
spironolactone 25 mg tablet 12.5 mg (1/2 x 25 mg) PO DAILY 30 days #15 tabs 03/28/24
sertraline 50 mg tablet (Zoloft) 50 mg PO HS 06/29/24
erythromycin 5 mg/gram (0.5 %) eye ointment 1 applic LEFT EYE DAILY corneal abrasion 07/13/24
latanoprost 0.005 % eye drops 1 drp RIGHT EYE HS 07/13/24
rosuvastatin 20 mg tablet 10 mg PO HS 07/13/24
Review of Systems
-
History Source: Patient and Family (Family at bedside)
A 12 point ROS was completed and negative except as noted: Yes
Constitutional: Reports Weight Loss; Denies Fever or Fatigue
EENT: Denies Sore Throat or Runny Nose
Respiratory: Reports Trouble Breathing (HUSSEIN with short distances); Denies Cough
Cardiac: Denies Chest Pain, Diaphoresis, Palpitations or Syncope
Abdomen/GI: Reports Abdominal Pain (Abdominal distention, reported constipation) and Constipated (6 days had 1 bowel movement yesterday 07/12/2024 with MiraLAX); Denies Nausea, Vomiting or Diarrhea
: Denies Dysuria, Frequency, Flank Pain, Incontinence, Difficulty Voiding or Urgency
Musculoskeletal: Denies Joint Pain or Edema
Skin: Denies Itching or Rash
Neurological: Denies Dizzy, Headache or Weakness
Endocrine: Reports No Symptoms
Hematologic/Lymphatic: Reports No Symptoms
Psych: Reports Calm
Physical Exam
Vital Signs
Vital Signs
Temp Pulse Resp BP Pulse Ox
98.5 F 77 18 110/87 96
07/29/24 14:18 07/29/24 16:28 07/29/24 14:18 07/29/24 16:28 07/29/24 16:32
Physical Exam
General: Comfortable, Conversant and Obese; No Pain, Fever or Chills
HEENT: NormoCephalic, Anicteric, Moist mucous membranes, PERRLA and [place] Conjunctivae
Respiratory: Clear; No Wheezes, Rales or Rhonchi
Cardiac: S1/S2, Regular Rhythm and Other (Left-sided pacemaker site intact Steri-Strips in place no surrounding ecchymosis); No Murmur, Rub, Gallop, Peripheral Edema, Calf Tenderness or JVD
GI: Soft, Non Tender, Normal Bowel Sounds, Distended and No Hepatosplenomegaly
Rectal: Deferred by Provider
Genito-urinary: Deferred by me
Musculoskeletal: No Clubbing, No Cyanosis and No Edema
Skin: Warm and Dry; No Rash or Jaundice
Neuro: AO x 3, No Motor Deficits, Nonfocal/grossly intact, Cranial Nerves Intact and No Sensory Deficits; No Slurred Speech, Facial Droop, Tremors or Sedated
Psych: Calm
Laboratory Results
-
Selected Entries
07/14/24
05:25 07/29/24
16:34
Actual Weight 121.676 kg 124 kg
Laboratory Tests
07/14/24 07/29/24
07:33 12:04
Potassium 3.3 L
Chloride 95 L
Carbon Dioxide 32 H
BUN 29 H
Creatinine 1.5 H 1.6 H
eGFR 48.25 44.38
Glucose 138 H 160 H
Data Reviewed
-
Diagnostic Radiology: Report Reviewed by me
Lab Data: Labs Reviewed by me
Old Records: Reviewed
Impression/Plan
-
Actual Weight 124 kg on 07/14/24 ---> 121.676 kg today 07/29/24
EKG
Atrial-sensed ventricular-paced rhythm
ABNORMAL ECG
WHEN COMPARED WITH ECG OF 13-JUL-2024 15:55,
VENT. RATE HAS INCREASED BY 9 BPM
07/29/21 OP CXR
No acute disease of the chest.
Moderate cardiomegaly. Progressed.
07/29/24 OP AXR
No acute pathology of the abdomen identified. No evidence of ascites on this plain film examination.
Mild fecal material in the colon. Progressed
Degenerative disease of the lumbar spine. Progressed
07/14/24 ECHO
Severely reduced left ventricular systolic function.
Global hypokinesis with regional variability
LVEF 25-30%
Enlarged right ventricular size. Reduced right ventricular systolic function.
ICD wire seen in right ventricle.
Well seated #23 Bovine aortic valve with peak/mean gradients across the aortic valve of 27/19 mmHg.
Trivial pericardial effusion without evidence of hemodynamic compromise.
Last hospitalist admission: DATE OF ADMISSION: 07/13/2024 - DATE OF DISCHARGE: 07/14/2024
Dxs; acute on chr HF mixed HF
leaving AMA on 07/14
ASSESSMENT & PLAN
Acute on chronic HF with mixed EF
Hypervolemia with interval wt gain 3 kg
HC CM
- IV Lasix 80 BID
- c/w spironolactone 12.5 mg daily
- fluid restrict 40 ounce diet
- Consult [facility] cardiology
Abdominal distention
HX constipation
AXR POS for mild feces in colon
- cont. MiraLAX
S/P permanent pacemaker July 07, 2024
Borderline hypotension
HX Benign HTN
- cont metoprolol succinate 25 mg daily with hold parameters
HX CKD3a with element of JAI
- Reactively stable Cr but element of JAI due to cardiorenal syndome
- Follow BMP with IV diuresis
Paroxysmal AF
- c/w Eliquis, amiodarone and metoprolol succinate
Hyperlipidemia
- on Crestor qpm
DM 2/diabetic retinopathy, diabetic neuropathy
- low SSI
- c/w Jardiance
Left bundle branch block HX
Moderate to severe MR per echo 02/16/2024
AAA repair with AVR Bovine 2009.
Chronic ambulatory dysfunction with radiculopathy
- PT/OT
Depression and anxiety
- c/w Zoloft 50 mg at bedtime
HX COPD
-no acute exacerbation
HX prior tobacco abuse
Used to smoke cigarettes many years ago then pipes and cigars stopped 2022
- No inhalers listed
Former alcohol abuse
- Stopped 2022
Obesity due to excess calorie consumption/heart failure exacerbation�BMI 33.2 kg
-Affects all aspects of care
-Encourage healthy heart diet low-fat
Other PMH:
Obstructive sleep apnea intolerant to device
Glaucoma-continue latanoprost 1 drop right eye at bedtime
Ocular migraines
Renal calculi
Pleurisy
Arthritis
DVT Px: chr Eliquis
Code: Full
IP TLM
[2024-07-29 18:00] VITALS: BP 105/81
[2024-07-29 20:43] VITALS: BP 113/76; BMI 33.5
[2024-07-29] MEDS: CRESTOR 10 MG PO (20:51)
[2024-07-29] MEDS: ZOLOFT 50 MG PO (20:51)
[2024-07-29] MEDS: XALATAN OPHTHALMIC SOLUTION 1 DROP RIGHT EYE (20:51)
[2024-07-29] MEDS: ELIQUIS 5 MG PO (20:51)
[2024-07-29 21:56] LABS: Glucose - Point of Care 128 mg/dl (70-99)
[2024-07-29 23:36] VITALS: BP 108/72
[2024-07-30 03:59] VITALS: BP 106/74
--- NOTE | 2024-07-30 07:29 | CON.CAR ---
Consultation
Consultation Request
Date/Time Consultation Requested: July 30 2024
Date/Time Consultation Performed: July 30 2024
Requesting Provider: Dr Araiza
Performing Provider: Dr Marin
Reason for Consultation: HF
Medical History
-
Chief Complaint: Dyspnea
History of Present Illness:
Patient is a 74 YOM with male with past medical history significant for CAD status post CABG x 1 and AVR 2009, paroxysmal atrial fibrillation not on chronic anticoagulation, obstructive sleep apnea with intolerance to CPAP, mixed cardiomyopathy,
left bundle branch block, ventricular tachycardia status post biventricular ICD June 2024, chronic heart failure with reduced ejection fraction, hypertension, hyperlipidemia, type 2 diabetes who presents to emergency department after being
directed by his PCP due to worsening pBNP, wt gain and concerns about HF. He admits to dyspnea on exertion and his wt being up 10 lbs. He feels distended but not ascites on abd xray noted by report.
He was recently admitted Jul 13 with progressively worsening dyspnea on exertion and abdominal distention since ICD implant and was addmitted with HF. He left AMA 24 hrs later.
He had previously related some of his wt gain to constipation. He is now admitted with HF.
He last saw Dr Gabriel in the office May 2024 prior to ICD placement.
Past Medical History:
Mixed cardiomyopathy EF 25-30% by echo Jul 2024
LBBB
H/o Nonsustained V. tach
Status post biventricular ICD 07/07/2024
Chronic heart failure with reduced ejection fraction
History of COVID September 2021
HTN
HLD
DM2
CAD s/p 1 vessel CABG
s/p bioAVR
History of atrial fibrillation s/p cv 07/23/2023
on Eliquis
JAMES not using CPAP
Hx Cough syncope
hiatal hernia
Neuropathy
Radiculopathy
Depression
Ocular migraines
Renal calculi
Pleurisy
Arthritis
Past Medical History
Past Medical History: Other (See HPI)
Past Surgical History: Cardiac (CABG x 1 and aortic valve replacement 2009) and Other (Varicocele repair, lumbar discectomy April 2022, retinal detachment)
Social History
Tobacco: Smoker (Occasional cigar)
Alcohol: Daily
Drug: None
Personal:
Living: With Family
Employment: Retired
Family History
Family History: Other (Father from CHF at age 82, mother at 94)
Allergies / Home Medications
Allergy/AdvReac Type Severity Reaction Status Date / Time
No Known Allergies Allergy Verified 07/29/24 14:21
�Medication �Instructions �Recorded �Confirmed �Type
metoprolol succinate 25 mg 25 mg PO DAILY Blood pressure 10/01/21 07/29/24 History
tablet,extended release 24 hr
amiodarone 200 mg tablet 200 mg PO DAILY Arrhythmia 07/23/23 07/29/24 History
apixaban 5 mg tablet (Eliquis) 5 mg PO BID blood thinner 07/23/23 07/29/24 History
aspirin 81 mg tablet,delayed 81 mg PO DAILY blood thinner 07/23/23 07/29/24 History
release
empagliflozin 10 mg tablet 10 mg PO DAILY dm 07/23/23 07/29/24 History
(Jardiance)
furosemide 80 mg tablet 80 mg PO BID AT 0800,1600 #60 tabs 03/28/24 07/29/24 Rx
spironolactone 25 mg tablet 12.5 mg (1/2 x 25 mg) PO DAILY 30 03/28/24 07/29/24 Rx
days #15 tabs
sertraline 50 mg tablet (Zoloft) 50 mg PO HS Depression 06/29/24 07/29/24 History
latanoprost 0.005 % eye drops 1 drp RIGHT EYE HS 07/13/24 07/29/24 History
rosuvastatin 20 mg tablet 10 mg PO HS High Cholesterol 07/13/24 07/29/24 History
polyethylene glycol 3350 17 gram 17 g PO DAILYPRN PRN constipation 07/29/24 07/29/24 History
oral powder packet (Miralax)
Review of Systems
-
History Source: Patient
All other systems: Negative unless noted
Respiratory: Trouble Breathing
Abdomen/GI: Other (abd distention per pt)
Physical Exam
Vital Signs
Temp Pulse Resp BP Pulse Ox
98.1 F 78 16 106/74 96
07/30/24 03:59 07/30/24 03:59 07/30/24 03:59 07/30/24 03:59 07/30/24 03:59
Physical examination:
General: No acute distress, AAOX3
Neck: Negative JVD
Heart: Regular, Negative S3 positive S1/S2, Negative S4, No murmur
Lungs: CTA b/l, negative wheezes/rales/rhonchi
Abd: Positive BS, NT/ND, neg rebound/rigidity/guarding
Ext: Negative cyanosis/clubbing/edema
Neuro: nonfocal
Impression / Plan
-
.
PCP: Dr. Chintan Gonzalez
Cardiology: Dr. Gabriel
Impression
Acute on chronic heart failure with reduced ejection fraction, EF 25-30%, proBNP 12,600 and was 12,300 last admit
Acute renal failure with RI
Cardiomyopathy, mixed without improved ejection fraction despite optimal medical therapy
s/p [employer] biventricular ICD 07/07/2024
LBBB
Hx NSVT
History of atrial fibrillation s/p cv 07/23/2023 on Eliquis
History of COVID September 2021
HTN
HLD
DM2
CAD s/p 1 vessel CABG 2009
s/p bioAVR 2009
JAMES not using CPAP
H/o Cough syncope
Radiculopathy
Depression
Ocular migraines
Renal calculi
Arthritis
Echo Jul 2024: EF 25-30% with global hypo, enlarged RV, ICD in place well seated #23 bovine AVR with peak/mean grad of 27/19 mmHg respectively, trace pericardial effusion.
Echo 02/16/2024: EF 25%. Global hypokinesis with basal inferior and basal inferolateral akinesis. Stage III diastolic dysfunction. Moderate to severe MR. Severely dilated left atrium. #23 bovine aortic valve with peak/mean gradient 46/29 mmHg.
Mild AI. Mild TR. PAP 35 mmHg
Echocardiogram 08/03/2023: Ejection fraction 25 to 30%, hypokinetic septum, apex, inferior, anterior and distal lateral pelletier, mild concentric LVH, moderate MR, status post bioprosthetic AVR with mean gradient of 13 mm hG
Echocardiogram 06/28/2023: Dilated right ventricle with ejection fraction of 20 to 25%, status post bioprosthetic AVR with mean gradient of 15 mmHg, dilated right heart with PA systolic of 45 mmHg
Echocardiogram January 2022: Ejection fraction 40%, global hypokinesis, status post AVR with mean gradient of 10 mmHg
Cardiac catheterization 03/28/2024: LM: LI. LAD: Moderate to severe diffuse atherosclerotic plaque. D2 has 30% stenosis. Left circumflex: Mid 60 to 70% stenosis. RCA: LI.
HEMODYNAMICS : (mmHg) RA (m) : 22; RV (s/d,m) : 72/14, 24; PA (s/d, m) : 72/34, 50; PCWP (m) : 34, V waves to 53 mmHg; PA saturation: 62.5% on room air; AO saturation: 93.6% on room air;
Cardiac Output : 5.58 L/min; Cardiac Index : 2.23 L/min/m-2; Systemic vascular resistance: 889 dsc^(-5); Pulmonary vascular resistance: 2.87 willams unit; AO (s/d) : 102/61; LV (s/d) : 131/21; LVEDP : 30
Estimated invasive transaortic gradient of 27 mmHg, aortic valve area 1.3 cm�
Significantly elevated right and left-sided filling pressures with severe pulmonary hypertension and normal cardiac output. Borderline low systemic vascular resistance.
Lexiscan sestamibi stress test 07/13/2023: Moderate sized medium in severity fixed basal to distal inferior, basal to mid inferoseptal, small mid anterior perfusion defect with no evidence of ischemia. Ejection fraction 21% with severe global
hypokinesis
Plan:
Presented with worsening pBNP, dyspnea on exertion and wt gain.
He states he may be up 10 lbs.
Abd xray no evidence of ascites as per report.
Cont IV lasix diuresis 80 mg IV BID. He takes 80 mg BID as outpt. Add Metolazone 2.5 mg daily to PM dose of lasix.
Monitor cr and Is and Os and daily wt.
He has some CRI.
Some wheezing on exam he relates to post nasal drip.
Recent BiV ICD placement Jun 2024. EKG atrial sensed V paced.
Cont to replete K and Mg as needed given NSVT
Cont Amiodarone for hx NSVT and aFib
Cont Eliquis for AFib
Cont GDMT for CM including Toprol, Aldactone, Jardiance.
-Hypotension has prevented initiation of LYNDSEY/ARB in past and now with worsening RI
Discussed with nursing.
Data Reviewed
-
EKG: Tracing Personally Visualized and interpreted
Medical Tests (Nuc Med, Echo etc): Report Reviewed by me (echo)
Labs: Labs Reviewed by me
Old Records: Reviewed
[2024-07-30 07:50] VITALS: BP 108/79
[2024-07-30 08:03] LABS: Glucose - Point of Care 112 mg/dl (70-99)
[2024-07-30] MEDS: NOVOLOG FLEXPEN-LOW RESISTANCE SC ×3 (08:15→17:15)
[2024-07-30] MEDS: ASPIR LOW (ENTERIC COATED) 81 MG PO (08:18)
[2024-07-30] MEDS: ALDACTONE 12.5 MG PO (08:18)
[2024-07-30] MEDS: PACERONE 200 MG PO (08:18)
[2024-07-30] MEDS: ELIQUIS 5 MG PO ×2 (08:18→21:02)
[2024-07-30] MEDS: TOPROL XL 25 MG PO (08:18)
[2024-07-30] MEDS: LASIX 80 MG IV ×2 (08:19→16:06)
[2024-07-30] MEDS: FARXIGA 10 MG PO (08:21)
[2024-07-30 08:38] LABS: Blood Urea Nitrogen 33 mg/dl (9-20); Carbon Dioxide 33 mmol/L (22-30); Chloride 98 mmol/L (98-107); Estimated Creatinine Clearance 52 ml/min; Glucose 130 mg/dl (70-99); Potassium 3.6 mmol/L (3.5-5.1); Sodium 139 mmol/L (135-145); eGFR 41.26
--- NOTE | 2024-07-30 08:38 | W.PN.HOSP.TC ---
Today's Communication/Plan
-
IV diuresis and added metolazone.
Assessment / Plan
Assessment / Plan
Physical exam:
General: Acutely ill
HEENT: Normocephalic, Atraumatic and Moist Mucous Membranes
Respiratory: Coarse crackles bilateral; Negative Wheezes or Rhonchi
Cardiac: Regular Rhythm and S1/S2
GI: Soft, Nontender and Nondistended
Musculoskeletal: No Clubbing, No Cyanosis and presence of bilateral lower extremity edema
Neuro: Awake, Alert and Oriented, no gross neurological deficit
Psych: Calm
A/P:
Acute on chronic HF with mixed EF but predominantly reduced ejection fraction
Hypervolemia with interval wt gain 3 kg
HC CM
- IV Lasix 80 BID and added metolazone 2.5 mg p.o. daily.
- c/w spironolactone 12.5 mg daily
- fluid restrict 40 ounce diet
- Consulted [facility]ology and appreciated input
Abdominal distention
HX constipation
AXR POS for mild feces in colon
- cont. MiraLAX
S/P permanent pacemaker July 07, 2024
Borderline hypotension
HX Benign HTN
- cont metoprolol succinate 25 mg daily with hold parameters
HX CKD3a with element of JAI
- Reactively stable Cr but element of JAI due to cardiorenal syndome
- Follow BMP with IV diuresis
Paroxysmal AF
- c/w Eliquis, amiodarone and metoprolol succinate
Hyperlipidemia
- on Crestor qpm
DM 2/diabetic retinopathy, diabetic neuropathy
- low SSI
- c/w Jardiance
Left bundle branch block HX
Moderate to severe MR per echo 02/16/2024
AAA repair with AVR Bovine 2009.
Chronic ambulatory dysfunction with radiculopathy
- PT/OT
Depression and anxiety
- c/w Zoloft 50 mg at bedtime
HX COPD
-no acute exacerbation
HX prior tobacco abuse
Used to smoke cigarettes many years ago then pipes and cigars stopped 2022
- No inhalers listed
Former alcohol abuse
- Stopped 2022
Obesity due to excess calorie consumption/heart failure exacerbation�BMI 33.2 kg
-Affects all aspects of care
-Encourage healthy heart diet low-fat
Other PMH:
Obstructive sleep apnea intolerant to device
Glaucoma-continue latanoprost 1 drop right eye at bedtime
Ocular migraines
Renal calculi
Pleurisy
Arthritis
DVT Px: chr Eliquis
Code: Full
Total time spent on today's encounter was 52 minutes which included time spent in counseling the patient/family regarding diagnosis and treatment plan as listed above, goals of care, and symptom management. Case was discussed with nursing staff,
specialists, and care coordinators/case management. All labs and imaging personally reviewed by me. Remainder the time spent in detailed review of previous records, lab data, imaging, and other medical provider documentation.
Anticipated Discharge: > 48 hours
Subjective/Interval History
-
Date of Service: July 30, 2024
Patient less short of breath today but not putting out that much urine. No chest pain. Afebrile
Objective Data
-
Labs:
Laboratory Results
07/30/24
07:48
Sodium Pending
Potassium Pending
Chloride Pending
Carbon Dioxide Pending
BUN Pending
Creatinine Pending
Glucose Pending
Calcium Pending
Vital Signs:
Vital Signs
Temp Pulse Resp BP Pulse Ox
98.1 F 72 16 108/69 96
07/30/24 03:59 07/30/24 08:19 07/30/24 03:59 07/30/24 08:19 07/30/24 03:59
I&O
07/29/24 07/30/24 07/31/24
06:59 06:59 06:59
Intake Total 480 / 480
Balance 480 / 480
[2024-07-30 11:45] VITALS: BP 113/78
[2024-07-30 12:07] LABS: Glucose - Point of Care 142 mg/dl (70-99)
[2024-07-30] MEDS: ZAROXOLYN 2.5 MG PO (15:31)
[2024-07-30 15:55] VITALS: BP 105/73
[2024-07-30 17:06] LABS: Glucose - Point of Care 149 mg/dl (70-99)
[2024-07-30 19:55] VITALS: BP 100/64
[2024-07-30] MEDS: ZOLOFT 50 MG PO (21:02)
[2024-07-30] MEDS: CRESTOR 10 MG PO (21:02)
[2024-07-30] MEDS: XALATAN OPHTHALMIC SOLUTION 1 DROP RIGHT EYE (21:03)
[2024-07-30 22:03] LABS: Glucose - Point of Care 132 mg/dl (70-99)
[2024-07-30 23:49] VITALS: BP 112/77
[2024-07-31] MEDS: TYLENOL 650 MG PO (01:47)
[2024-07-31 03:59] VITALS: BP 96/64
[2024-07-31 06:00] VITALS: BMI 33.7
[2024-07-31 07:35] VITALS: BP 101/66
[2024-07-31 07:55] LABS: Glucose - Point of Care 133 mg/dl (70-99)
[2024-07-31] MEDS: NOVOLOG FLEXPEN-LOW RESISTANCE SC ×2 (09:45→12:16)
[2024-07-31] MEDS: ALDACTONE 12.5 MG PO (09:54)
[2024-07-31] MEDS: ELIQUIS 5 MG PO ×2 (09:54→20:58)
[2024-07-31] MEDS: FARXIGA 10 MG PO (09:54)
[2024-07-31] MEDS: ASPIR LOW (ENTERIC COATED) 81 MG PO (09:54)
[2024-07-31] MEDS: LASIX IV (09:55)
[2024-07-31] MEDS: PACERONE 200 MG PO (09:56)
[2024-07-31] MEDS: TOPROL XL PO (09:56)
[2024-07-31] MEDS: FLUSH (NSS) 1 FLUSH IV ×2 (09:57→12:09)
[2024-07-31 10:08] LABS: Blood Urea Nitrogen 49 mg/dl (9-20); Carbon Dioxide 29 mmol/L (22-30); Chloride 93 mmol/L (98-107); Estimated Creatinine Clearance 49 ml/min; Glucose 126 mg/dl (70-99); Potassium 3.6 mmol/L (3.5-5.1); Sodium 136 mmol/L (135-145); eGFR 38.53
[2024-07-31 11:28] VITALS: BMI 33.7
[2024-07-31 11:30] VITALS: BP 104/70
[2024-07-31] MEDS: BUMEX 2 MG IV ×2 (12:09→20:59)
[2024-07-31 12:17] LABS: Glucose - Point of Care 146 mg/dl (70-99)
--- NOTE | 2024-07-31 13:19 | CM ---
Pt seen bedside. Initial assessment completed
Pt lives w/ spouse in a [facility]- 2 steps to enter
Pt is independent w/ ambulating. Has grab bars in the bathroom
Denies SNF/VN/PT. Pt engaged in heart therapy prev at ambulatory center for OP therapy
Address, point of contacts and insurance verified
PCP: Dr. Chintan Robertson
Pharmacy: [facility]- [place]
Plan: Home; no needs anticipated
CM will cont to follow for d/c planning
--- NOTE | 2024-07-31 14:48 | W.PN.HOSP.TC ---
Today's Communication/Plan
-
Bumex
CT chest
proBNP in AM since unclear if diuresis appropriate
Assessment / Plan
Assessment / Plan
74y M with HTN, CAD, Afib, HLD, HFrEF came with SOB and abd wall swelling, found significantly elevated proBNP and started on diuresis. Patient concerned that Lasix is not effective, so Bumex started
A/P:
#Acute on chronic HFrEF s/p ICD
# s/p TAVR (bioprosthetic)
Echo as of 07/14/24: EF 25-30%, global hypokinesis
DIuretics, daily weight, follow electrolytes
Cardio follows
#Constipation
miralax
#DM type 2 with nephropathy
Insulin SS, Accuchecks, DM diet
#Essential HTN
#CKD stage 3a
#Paroxysmal Afib
#Depression/anxiety d/o
#COPD, not in exacerbation
#Ocular migraines
#Glaucoma
cont home meds
Telemetry
#Obesity with BMI 33.2
decrease calorie intake
DVT ppx Eliquis
Full code
I have spent at least 58min reviewing chart, test results, communication for consultants and direct patient care
Anticipated Discharge: > 48 hours
Subjective/Interval History
-
Date of Service: July 31, 2024
Objective Data
-
Labs:
Laboratory Results
07/31/24
07:44
Sodium 136
Potassium 3.6
Chloride 93 L
Carbon Dioxide 29
BUN 49 H
Creatinine 1.8 H
Glucose 126 H
Calcium 9.0
Vital Signs:
Vital Signs
Temp Pulse Resp BP Pulse Ox
98.7 F 73 18 104/70 96
07/31/24 11:30 07/31/24 12:09 07/31/24 11:30 07/31/24 12:09 07/31/24 11:30
I&O
07/30/24 07/31/24 08/01/24
06:59 06:59 06:59
Intake Total 480 / 480 1200 / 1200
Output Total 1430 / 1430
Balance 480 / 480 -230 / -230
Review of Systems
-
History Source: Patient
All other systems: Reviewed and negative
Respiratory: Reports Trouble Breathing
Physical Exam
-
General: No Apparent Distress
HEENT: Normocephalic
Respiratory: Clear to Auscultation
Cardiac: Regular Rhythm
GI: Soft, Nontender and Distended
Musculoskeletal: No Clubbing, No Cyanosis and No Edema
Neuro: Awake, Alert, Oriented and AO x 3
Psych: Calm
[2024-07-31 15:15] VITALS: BP 113/75
--- NOTE | 2024-07-31 16:24 | PTCARENOTE ---
Pt AAOL x3, CHEATHAM well, OOB in room, jorge well, no c/o weakness/dizziness. VSS. Telemetry:AV paced rhythm. On room air- pulse ox 97%, no SOB noted. Abd large, soft, pt c/o 'I feel 'bloated'. Voiding in urinal- small/mos amts clear aylin urine. CT
chest completed. Pt currently resting in bed, no c/o. Will continue to monitor.
--- NOTE | 2024-07-31 16:38 | W.PN.CARDCBS ---
Addendum entered and electronically signed by Ludmila Diaz DO 07/31/24 17:37:
I saw and examined the patient.
The Recreation Therapist's note was reviewed and I agree with the note.
Comment: Patient seen and examined with daughters at bedside. Overall he is feeling about the same and still has edema and shortness of breath. No chest pain or pressure.
General: No acute distress, AAOX3
Heart: Regular, positive S1-S2. 2/ 6 systolic murmur. ICD site intact with Steri-Strips
Lungs:Bronchovesicular breath sounds decreased at the bases fine crackles right base.
Abd: Positive BS, NT/ND, neg rebound/rigidity/guarding
Ext: ++ edema
Neuro: nonfocal
Plan:
Presented 07/29/2024 with acute on chronic heart failure with reduced ejection fraction and worsening pBNP (12,600) dyspnea on exertion and wt gain.
He states he may be up 10 lbs. current weight 270 pounds
Unfortunately creatinine now trending upward currently 1.8 after getting 1 dose of metolazone 2.5 mg on 07/30/2023. Metolazone currently on hold.
Lasix (poor diuretic response) transitioned to Bumex on 07/31/2024. Patient reports significant improvement of urination after IV Bumex.
Continue to monitor and trend weight and renal function
Monitor cr and Is and Os and daily wt.
He has some baseline CRI.
Recent BiV ICD placement Jun 2024. EKG atrial sensed V paced.
Cont to replete K and Mg as needed given NSVT; give KCL 20 meq this evening
Cont Amiodarone for hx NSVT and aFib
Cont Eliquis for AFib
Cont GDMT for CM including Toprol, Aldactone, Jardiance.
-Hypotension has prevented initiation of LYNDSEY/ARB in past and now with worsening RI
Discussed with Daughters at bedside.
Original Note:
Today's Communication / Plan
-
Hold metolazone
Continue diuresis with IV Bumex
Monitor renal function and electrolytes
Replete potassium
Impression / Plan
-
.
PCP: Dr. Chintan Gonzalez
Cardiology: Dr. Gabriel
Impression
Presented 07/29/2024 with worsening shortness of breath
Acute on chronic heart failure with reduced ejection fraction, EF 25-30%, proBNP 12,600 and was 12,300 last admit
Acute renal failure with RI
Cardiomyopathy, mixed without improved ejection fraction despite optimal medical therapy
s/p Medtronic biventricular ICD 07/07/2024
LBBB
Hx NSVT
History of atrial fibrillation s/p cv 07/23/2023 on Eliquis
History of COVID September 2021
HTN
HLD
DM2
CAD s/p 1 vessel CABG 2009
s/p bioAVR 2009
JAMES not using CPAP
H/o Cough syncope
Radiculopathy
Depression
Ocular migraines
Renal calculi
Arthritis
Echo Jul 14, 2024: EF 25-30% with global hypo, enlarged RV, ICD in place well seated #23 bovine AVR with peak/mean grad of 27/19 mmHg respectively, trace pericardial effusion.
Echo 02/16/2024: EF 25%. Global hypokinesis with basal inferior and basal inferolateral akinesis. Stage III diastolic dysfunction. Moderate to severe MR. Severely dilated left atrium. #23 bovine aortic valve with peak/mean gradient 46/29 mmHg.
Mild AI. Mild TR. PAP 35 mmHg
Echocardiogram 08/03/2023: Ejection fraction 25 to 30%, hypokinetic septum, apex, inferior, anterior and distal lateral pelletier, mild concentric LVH, moderate MR, status post bioprosthetic AVR with mean gradient of 13 mm hG
Echocardiogram 06/28/2023: Dilated right ventricle with ejection fraction of 20 to 25%, status post bioprosthetic AVR with mean gradient of 15 mmHg, dilated right heart with PA systolic of 45 mmHg
Echocardiogram January 2022: Ejection fraction 40%, global hypokinesis, status post AVR with mean gradient of 10 mmHg
Cardiac catheterization 03/28/2024: LM: LI. LAD: Moderate to severe diffuse atherosclerotic plaque. D2 has 30% stenosis. Left circumflex: Mid 60 to 70% stenosis. RCA: LI.
HEMODYNAMICS : (mmHg) RA (m) : 22; RV (s/d,m) : 72/14, 24; PA (s/d, m) : 72/34, 50; PCWP (m) : 34, V waves to 53 mmHg; PA saturation: 62.5% on room air; AO saturation: 93.6% on room air;
Cardiac Output : 5.58 L/min; Cardiac Index : 2.23 L/min/m-2; Systemic vascular resistance: 889 dsc^(-5); Pulmonary vascular resistance: 2.87 willams unit; AO (s/d) : 102/61; LV (s/d) : 131/21; LVEDP : 30
Estimated invasive transaortic gradient of 27 mmHg, aortic valve area 1.3 cm�
Significantly elevated right and left-sided filling pressures with severe pulmonary hypertension and normal cardiac output. Borderline low systemic vascular resistance.
Lexiscan sestamibi stress test 07/13/2023: Moderate sized medium in severity fixed basal to distal inferior, basal to mid inferoseptal, small mid anterior perfusion defect with no evidence of ischemia. Ejection fraction 21% with severe global
hypokinesis
Plan:
Presented 07/29/2024 with acute on chronic heart failure with reduced ejection fraction and worsening pBNP (12,600) dyspnea on exertion and wt gain.
He states he may be up 10 lbs. current weight 270 pounds
Unfortunately creatinine now trending upward currently 1.8 after getting 1 dose of metolazone 2.5 mg on 07/30/2023. Metolazone currently on hold.
Lasix ( poor diuretic response) transitioned to Bumex on 07/31/2024. Patient reports significant improvement of urination after IV Bumex. Patient may be Lasix na�ve and would consider discharging home on Bumex in place of Lasix
Continue to monitor and trend weight and renal function
Monitor cr and Is and Os and daily wt.
He has some baseline CRI.
Recent BiV ICD placement Jun 2024. EKG atrial sensed V paced.
Cont to replete K and Mg as needed given NSVT; give KCL 20 meq this evening
Cont Amiodarone for hx NSVT and aFib
Cont Eliquis for AFib
Cont GDMT for CM including Toprol, Aldactone, Jardiance.
-Hypotension has prevented initiation of LYNDSEY/ARB in past and now with worsening RI
Discussed with nursing.
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
Subjective
Date of Service: July 31, 2024
Patient seen and examined. Patient sitting up on side of bed. He reports he feels less short of breath and reports he had good diuretic response to Bumex. Still feels bloated with some abdominal distention.
Objective
Labs:
07/31/24 07:44
Labs
Sodium 136 mmol/L (135-145) 07/31/24 07:44
Potassium 3.6 mmol/L (3.5-5.1) 07/31/24 07:44
BUN 49 mg/dl (9-20) H 07/31/24 07:44
Creatinine 1.8 mg/dL (0.7-1.3) H 07/31/24 07:44
Glucose 126 mg/dl (70-99) H 07/31/24 07:44
Vital Signs and I&O:
Vital Signs
Temp Pulse Resp BP Pulse Ox
98.6 F 81 18 113/75 97
07/31/24 15:15 07/31/24 15:15 07/31/24 15:15 07/31/24 15:15 07/31/24 16:24
Vital Signs
Temp Pulse Resp BP Pulse Ox
98.6 F 81 18 113/75 97
07/31/24 15:15 07/31/24 15:15 07/31/24 15:15 07/31/24 15:15 07/31/24 16:24
Intake & Output
07/29/24 07/30/24 07/31/24 08/01/24
06:59 06:59 06:59 06:59
Intake Total 480 / 480 1200 / 1200
Output Total 1430 / 1430
Balance 480 / 480 -230 / -230
Physical Exam
Physical Exam
GEN: No distress, awake, Ox3, sitting up on side of bed
HEENT: supple, anicteric, mmm
LUNGS: CTA, no wheezes/rales
CV: Reg, S1/S2, 1/6 syst murmur, no rub or gallop
ABD: Firm, distended, positive bowel sounds
EXT: No edema, clubbing or cyanosis
NEURO: Gross non-focal
SKIN: No rash, warm, dry, pink
[2024-07-31 16:44] LABS: Glucose - Point of Care 185 mg/dl (70-99)
[2024-07-31] MEDS: KCL 20 MEQ PO (18:39)
[2024-07-31] MEDS: NOVOLOG FLEXPEN-LOW RESISTANCE 1 UNITS SC (19:23)
[2024-07-31 20:23] VITALS: BP 104/62
[2024-07-31] MEDS: ZOLOFT 50 MG PO (20:58)
[2024-07-31] MEDS: CRESTOR 10 MG PO (20:58)
[2024-07-31] MEDS: XALATAN OPHTHALMIC SOLUTION 1 DROP RIGHT EYE (21:02)
[2024-07-31 21:31] LABS: Glucose - Point of Care 127 mg/dl (70-99)
[2024-08-01] VITALS (10 sets, daily range): BP systolic 77–115; BP diastolic 57–86; BMI 33.4
[2024-08-01] MEDS: PACERONE 200 MG PO (08:03)
[2024-08-01] MEDS: ALDACTONE 12.5 MG PO (08:03)
[2024-08-01] MEDS: ELIQUIS 5 MG PO ×2 (08:03→21:13)
[2024-08-01] MEDS: ASPIR LOW (ENTERIC COATED) 81 MG PO (08:04)
[2024-08-01] MEDS: FARXIGA 10 MG PO (08:04)
[2024-08-01] MEDS: BUMEX 2 MG IV ×2 (08:04→21:09)
[2024-08-01] MEDS: TOPROL XL 25 MG PO (08:04)
[2024-08-01 08:08] LABS: Glucose - Point of Care 129 mg/dl (70-99)
[2024-08-01] MEDS: NOVOLOG FLEXPEN-LOW RESISTANCE SC (08:15)
[2024-08-01 08:46] LABS: % Basophils 1.2 % (0-2); % Immature Granulocytes 0.6 % (0-0.5); % Lymphocytes 16.1 % (20.5-51.1); % Monocytes 9.4 % (1.7-9.3); % Neutrophils 69.7 % (42.2-75.2); Absolute Basophils 0.1 10^3/uL (0-0.2); Absolute Eosinophils 0.2 10^3/uL (0-0.7); Absolute Lymphocytes 1.2 10^3/uL (1.2-3.4); Absolute Monocytes 0.7 10^3/uL (0.1-0.6); Hematocrit 45.2 % (39.0-52.0); Hemoglobin 14.3 g/dL (13.0-18.0); Mean Corp Hgb Conc. 31.6 g/dL (33.0-37.0); Mean Corpuscular Hgb 29.5 pg (27.0-31.0); Mean Corpuscular Volume 93.4 fL (80.0-94.0); Mean Platelet Volume 10.9 fL (7.4-10.4); Nucleated Red Blood Cells % 0 % (-); Platelet Count 152 10^3/uL (130-400); Red Blood Cell Count 4.84 10^6/uL (4.70-6.10); Red Cell Dist. Width 15.3 % (11.5-14.5); White Blood Cell Count 7.2 10^3/uL (4.8-10.8)
[2024-08-01 09:15] LABS: ALT (SGPT) 75 U/L (0-50); AST (SGOT) 66 U/L (17-59); Alkaline Phosphatase 83 U/L (38-126); Blood Urea Nitrogen 54 mg/dl (9-20); Calcium 8.9 mg/dl (8.4-10.2); Carbon Dioxide 33 mmol/L (22-30); Chloride 93 mmol/L (98-107); Estimated Creatinine Clearance 49 ml/min; Glucose 133 mg/dl (70-99); Magnesium 2.4 mg/dl (1.6-2.3); NT-proBNP 12000 pg/ml; Potassium 3.4 mmol/L (3.5-5.1); Sodium 139 mmol/L (135-145); Total Bilirubin 1.2 mg/dl (0.2-1.3); Total Protein 6.4 g/dl (6.3-8.2); eGFR 38.53
--- NOTE | 2024-08-01 09:41 | W.PN.CARDCBS ---
Addendum entered and electronically signed by Jamal Gabriel MD 08/01/24 13:38:
Attempted to see Mr. Carrera again and he was off the floor at interventional radiology
Addendum entered and electronically signed by Jamal Gabriel MD 08/01/24 11:42:
note should read favor initiation of entresto/lisinopril on 08/03/24
Addendum entered and electronically signed by Jamal Gabriel MD 08/01/24 11:41:
patient sleeping so I will return for face to face discussion with patient to discuss his plan and course-
Reviewed and discussed plan with KRISTINA Tavarez
Agree with her note and assessment
agree with her plan
exam:
sleeping so deferred
jvp 7
no acute resp distress
sinus on tele with Biventricular pace and one short run of AIVR
remainder as per KRISTINA Tavarez's note
U/S result reviewed
reviewed CXR and CT scan
tele as above
Impression
Presented 07/29/2024 with worsening shortness of breath
Acute on chronic heart failure with reduced ejection fraction, EF 25-30%, proBNP 12,600 and was 12,300 last admit
Acute renal failure with RI
Cardiomyopathy, mixed without improved ejection fraction despite optimal medical therapy
s/p Medtronic biventricular ICD 07/07/2024
LBBB
Hx NSVT
History of atrial fibrillation s/p cv 07/23/2023 on Eliquis
History of COVID September 2021
HTN
HLD
DM2
CAD s/p 1 vessel CABG 2009
s/p bioAVR 2009
JAMES not using CPAP
H/o Cough syncope
Radiculopathy
Depression
Ocular migraines
Renal calculi
Arthritis
Echo Jul 14, 2024: EF 25-30% with global hypo, enlarged RV, ICD in place well seated #23 bovine AVR with peak/mean grad of 27/19 mmHg respectively, trace pericardial effusion.
Echo 02/16/2024: EF 25%. Global hypokinesis with basal inferior and basal inferolateral akinesis. Stage III diastolic dysfunction. Moderate to severe MR. Severely dilated left atrium. #23 bovine aortic valve with peak/mean gradient 46/29 mmHg.
Mild AI. Mild TR. PAP 35 mmHg
Echocardiogram 08/03/2023: Ejection fraction 25 to 30%, hypokinetic septum, apex, inferior, anterior and distal lateral pelletier, mild concentric LVH, moderate MR, status post bioprosthetic AVR with mean gradient of 13 mm hG
Echocardiogram 06/28/2023: Dilated right ventricle with ejection fraction of 20 to 25%, status post bioprosthetic AVR with mean gradient of 15 mmHg, dilated right heart with PA systolic of 45 mmHg
Echocardiogram January 2022: Ejection fraction 40%, global hypokinesis, status post AVR with mean gradient of 10 mmHg
Cardiac catheterization 03/28/2024: LM: LI. LAD: Moderate to severe diffuse atherosclerotic plaque. D2 has 30% stenosis. Left circumflex: Mid 60 to 70% stenosis. RCA: LI.
HEMODYNAMICS : (mmHg) RA (m) : 22; RV (s/d,m) : 72/14, 24; PA (s/d, m) : 72/34, 50; PCWP (m) : 34, V waves to 53 mmHg; PA saturation: 62.5% on room air; AO saturation: 93.6% on room air;
Cardiac Output : 5.58 L/min; Cardiac Index : 2.23 L/min/m-2; Systemic vascular resistance: 889 dsc^(-5); Pulmonary vascular resistance: 2.87 willams unit; AO (s/d) : 102/61; LV (s/d) : 131/21; LVEDP : 30
Estimated invasive transaortic gradient of 27 mmHg, aortic valve area 1.3 cm�
Significantly elevated right and left-sided filling pressures with severe pulmonary hypertension and normal cardiac output. Borderline low systemic vascular resistance.
Lexiscan sestamibi stress test 07/13/2023: Moderate sized medium in severity fixed basal to distal inferior, basal to mid inferoseptal, small mid anterior perfusion defect with no evidence of ischemia. Ejection fraction 21% with severe global
hypokinesis
Plan:
Presented 07/29/2024 with acute on chronic heart failure with reduced ejection fraction and worsening pBNP (12,600) dyspnea on exertion and wt gain.
Ongoing IV diuresis with IV Bumex. Patient lost 3 pounds overnight and is down 6 pounds since admission, creat 1.8
Lasix ( poor diuretic response) transitioned to Bumex on 07/31/2024. Patient reports significant improvement of urination after IV Bumex. Patient may be Lasix na�ve and would discharge home on Bumex in place of Lasix
Creatinine 1.8 after getting 1 dose of metolazone 2.5 mg on 07/30/2023. Metolazone currently on hold. He has some baseline CRI.
Continue to monitor and trend weight and renal function
Monitor cr and Is and Os and daily wt.
Recent BiV ICD placement Jun 2024. EKG atrial sensed V paced.
Cont to replete K and Mg as needed given NSVT; give KCL 40 meq this am and another 40 meq this afternoon. check daily K. adding afterload reduction should help maintain a reasonable potassium.
Cont Amiodarone for hx NSVT and aFib. he has had decompensated HF in past with AF
Cont Eliquis for AFib
Cont GDMT for CM including Toprol, Aldactone, Jardiance.
-Hypotension has prevented initiation of LYNDSEY/ARB in past and now with worsening RI. If his creatine peak/plateau's and starts to come down would favor initiation of entresto at low dose or lisinopril on 07/24.
Ongoing ascites with concern for cirrhosis. Primary service has ordered liver ultrasound and possible paracentesis. Chest CT demonstrates small to moderate collection and ultrasound demonstrates elevated right heart pressures (expected) from his HF
without large cvolume ascites. Would favor diuresis first. I suspect chronic hepatic congestion may be affecting his LFT's plus low dose amiodarone.
Original Note:
Today's Communication / Plan
-
Continue diuresis with IV Bumex
Replete potassium 40 mEq in a.m. and 40 mEq in p.m.
Continue to follow BMP and mag level
Impression / Plan
-
.
PCP: Dr. Chintan Gonzalez
Cardiology: Dr. Gabriel
Impression
Presented 07/29/2024 with worsening shortness of breath
Acute on chronic heart failure with reduced ejection fraction, EF 25-30%, proBNP 12,600 and was 12,300 last admit
Acute renal failure with RI
Cardiomyopathy, mixed without improved ejection fraction despite optimal medical therapy
s/p Medtronic biventricular ICD 07/07/2024
LBBB
Hx NSVT
History of atrial fibrillation s/p cv 07/23/2023 on Eliquis
History of COVID September 2021
HTN
HLD
DM2
CAD s/p 1 vessel CABG 2009
s/p bioAVR 2009
JAMES not using CPAP
H/o Cough syncope
Radiculopathy
Depression
Ocular migraines
Renal calculi
Arthritis
Echo Jul 14, 2024: EF 25-30% with global hypo, enlarged RV, ICD in place well seated #23 bovine AVR with peak/mean grad of 27/19 mmHg respectively, trace pericardial effusion.
Echo 02/16/2024: EF 25%. Global hypokinesis with basal inferior and basal inferolateral akinesis. Stage III diastolic dysfunction. Moderate to severe MR. Severely dilated left atrium. #23 bovine aortic valve with peak/mean gradient 46/29 mmHg.
Mild AI. Mild TR. PAP 35 mmHg
Echocardiogram 08/03/2023: Ejection fraction 25 to 30%, hypokinetic septum, apex, inferior, anterior and distal lateral pelletier, mild concentric LVH, moderate MR, status post bioprosthetic AVR with mean gradient of 13 mm hG
Echocardiogram 06/28/2023: Dilated right ventricle with ejection fraction of 20 to 25%, status post bioprosthetic AVR with mean gradient of 15 mmHg, dilated right heart with PA systolic of 45 mmHg
Echocardiogram January 2022: Ejection fraction 40%, global hypokinesis, status post AVR with mean gradient of 10 mmHg
Cardiac catheterization 03/28/2024: LM: LI. LAD: Moderate to severe diffuse atherosclerotic plaque. D2 has 30% stenosis. Left circumflex: Mid 60 to 70% stenosis. RCA: LI.
HEMODYNAMICS : (mmHg) RA (m) : 22; RV (s/d,m) : 72/14, 24; PA (s/d, m) : 72/34, 50; PCWP (m) : 34, V waves to 53 mmHg; PA saturation: 62.5% on room air; AO saturation: 93.6% on room air;
Cardiac Output : 5.58 L/min; Cardiac Index : 2.23 L/min/m-2; Systemic vascular resistance: 889 dsc^(-5); Pulmonary vascular resistance: 2.87 willams unit; AO (s/d) : 102/61; LV (s/d) : 131/21; LVEDP : 30
Estimated invasive transaortic gradient of 27 mmHg, aortic valve area 1.3 cm�
Significantly elevated right and left-sided filling pressures with severe pulmonary hypertension and normal cardiac output. Borderline low systemic vascular resistance.
Lexiscan sestamibi stress test 07/13/2023: Moderate sized medium in severity fixed basal to distal inferior, basal to mid inferoseptal, small mid anterior perfusion defect with no evidence of ischemia. Ejection fraction 21% with severe global
hypokinesis
Plan:
Presented 07/29/2024 with acute on chronic heart failure with reduced ejection fraction and worsening pBNP (12,600) dyspnea on exertion and wt gain.
Ongoing IV diuresis with IV Bumex. Patient lost 3 pounds overnight and is down 6 pounds since admission, creat 1.8
Lasix ( poor diuretic response) transitioned to Bumex on 07/31/2024. Patient reports significant improvement of urination after IV Bumex. Patient may be Lasix na�ve and would consider discharging home on Bumex in place of Lasix
Creatinine 1.8 after getting 1 dose of metolazone 2.5 mg on 07/30/2023. Metolazone currently on hold. He has some baseline CRI.
Continue to monitor and trend weight and renal function
Monitor cr and Is and Os and daily wt.
Recent BiV ICD placement Jun 2024. EKG atrial sensed V paced.
Cont to replete K and Mg as needed given NSVT; give KCL 40 meq this am and another 40 meq this afternoon
Cont Amiodarone for hx NSVT and aFib
Cont Eliquis for AFib
Cont GDMT for CM including Toprol, Aldactone, Jardiance.
-Hypotension has prevented initiation of LYNDSEY/ARB in past and now with worsening RI
Ongoing ascites with concern for cirrhosis. Primary service has ordered liver ultrasound and possible paracentesis
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
Subjective
Date of Service: August 01, 2024
Patient seen and examined. Patient sitting on edge of bed reading book. Reports breathing continues to improve and he has good diuretic response to IV Bumex. Still with some abdominal distention/bloating and fullness
Objective
Labs:
08/01/24 07:38
08/01/24 07:38
Labs
Hgb 14.3 g/dL (13.0-18.0) 08/01/24 07:38
Hct 45.2 % (39.0-52.0) 08/01/24 07:38
Plt Count 152 10^3/uL (130-400) 08/01/24 07:38
Sodium 139 mmol/L (135-145) 08/01/24 07:38
Potassium 3.4 mmol/L (3.5-5.1) L 08/01/24 07:38
BUN 54 mg/dl (9-20) H 08/01/24 07:38
Creatinine 1.8 mg/dL (0.7-1.3) H 08/01/24 07:38
Glucose 133 mg/dl (70-99) H 08/01/24 07:38
Vital Signs and I&O:
Vital Signs
Temp Pulse Resp BP Pulse Ox
98.2 F 76 18 104/70 98
08/01/24 08:16 08/01/24 09:30 08/01/24 08:16 08/01/24 09:30 08/01/24 08:16
Vital Signs
Temp Pulse Resp BP Pulse Ox
98.2 F 76 18 104/70 98
08/01/24 08:16 08/01/24 09:30 08/01/24 08:16 08/01/24 09:30 08/01/24 08:16
Intake & Output
07/30/24 07/31/24 08/01/24 08/02/24
06:59 06:59 06:59 06:59
Intake Total 480 / 480 1200 / 1200 600 / 600
Output Total 1430 / 1430 2530 / 2530
Balance 480 / 480 -230 / -230 -1930 / -1929
Physical Exam
Physical Exam
GEN: No distress, awake, Ox3, sitting up on side of bed
HEENT: supple, anicteric, mmm
LUNGS: CTA, no wheezes/rales
CV: Reg, S1/S2, 1/6 syst murmur, no rub or gallop
ABD: Firm, distended, positive bowel sounds
EXT: No edema, clubbing or cyanosis
NEURO: Gross non-focal
SKIN: No rash, warm, dry, pink
[2024-08-01 09:58] LABS: Hepatitis C Antibody Negative (Negative)
[2024-08-01] MEDS: KCL 40 MEQ PO ×2 (10:03→16:32)
--- NOTE | 2024-08-01 12:04 | W.PN.HOSP.TC ---
Today's Communication/Plan
-
cont diuresis
IRAD for paracenthesis
Assessment / Plan
Assessment / Plan
74y M with HTN, CAD, Afib, HLD, HFrEF, prosthetic AV, ascending aortic graft came with SOB and abd wall swelling, found significantly elevated proBNP and started on diuresis. Patient concerned that Lasix is not effective, so Bumex started which
resulted in improved diuresis. CT chest showed no pulmonary edema, but ascites and concern for liver cirrhosis
A/P:
#Acute on chronic HFrEF s/p ICD
# s/p TAVR (bioprosthetic)
#small right pleural effusion
#minimal left pleural effusion
Echo as of 07/14/24: EF 25-30%, global hypokinesis
Diuretics, daily weight, follow electrolytes
Cardio follows
#Abdominal ascites and concern for liver cirrhosis
can be 2/2 liver congestion due to CHF
paracenthesis
DOppler of portal system showed no PVT
Check HepC
#Atelectasis
Incentive spirometry
#DISH
tylenol
PT/OT
#Constipation
miralax
#DM type 2 with nephropathy
Insulin SS, Accuchecks, DM diet
#Essential HTN
#CKD stage 3a
#Paroxysmal Afib
#Depression/anxiety d/o
#COPD, not in exacerbation
#Ocular migraines
#Glaucoma
cont home meds
Telemetry
#Obesity with BMI 33.2
decrease calorie intake
DVT ppx Eliquis
Full code
I have spent at least 58min reviewing chart, test results, communication for consultants and direct patient care
Anticipated Discharge: > 48 hours
Subjective/Interval History
-
Date of Service: August 01, 2024
Objective Data
-
Labs:
Laboratory Results
08/01/24
07:38
WBC 7.2
Hgb 14.3
Hct 45.2
Plt Count 152
Sodium 139
Potassium 3.4 L
Chloride 93 L
Carbon Dioxide 33 H
BUN 54 H
Creatinine 1.8 H
Glucose 133 H
Calcium 8.9
Total Bilirubin 1.2
AST 66 H
ALT 75 H
Alkaline Phosphatase 83
Vital Signs:
Vital Signs
Temp Pulse Resp BP Pulse Ox
98 F 74 18 101/68 98
08/01/24 11:58 08/01/24 11:58 08/01/24 11:58 08/01/24 11:58 08/01/24 11:58
I&O
07/31/24 08/01/24 08/02/24
06:59 06:59 06:59
Intake Total 1200 / 1200 600 / 600 480 / 480
Output Total 1430 / 1430 2530 / 2530 100 / 100
Balance -230 / -230 -1930 / -1930 380 / 380
Review of Systems
-
History Source: Patient
All other systems: Reviewed and negative
Physical Exam
-
General: No Apparent Distress
HEENT: Normocephalic
Respiratory: Clear to Auscultation
GI: Soft, Nontender and Distended
Genito-urinary: No Costovertebral Tender
Musculoskeletal: No Clubbing, No Cyanosis and No Edema
Neuro: Awake, Alert, Oriented and AO x 3
Psych: Calm
[2024-08-01 12:33] LABS: Glucose - Point of Care 154 mg/dl (70-99)
[2024-08-01] MEDS: NOVOLOG FLEXPEN-LOW RESISTANCE 1 UNITS SC ×2 (12:39→17:24)
[2024-08-01 17:05] LABS: Glucose - Point of Care 155 mg/dl (70-99)
[2024-08-01] MEDS: ZOLOFT 50 MG PO (21:12)
[2024-08-01] MEDS: CRESTOR 10 MG PO (21:12)
[2024-08-01] MEDS: XALATAN OPHTHALMIC SOLUTION 1 DROP RIGHT EYE (21:13)
[2024-08-01 21:51] LABS: Glucose - Point of Care 141 mg/dl (70-99)
[2024-08-02 03:00] VITALS: BP 108/74
[2024-08-02 06:00] VITALS: BMI 33.4
[2024-08-02 07:57] LABS: Glucose - Point of Care 121 mg/dl (70-99)
[2024-08-02] MEDS: NOVOLOG FLEXPEN-LOW RESISTANCE SC ×3 (08:00→16:53)
[2024-08-02] MEDS: BUMEX 2 MG IV ×2 (08:00→21:00)
[2024-08-02] MEDS: ALDACTONE 12.5 MG PO (08:01)
[2024-08-02] MEDS: ASPIR LOW (ENTERIC COATED) 81 MG PO (08:01)
[2024-08-02] MEDS: PACERONE 200 MG PO (08:01)
[2024-08-02] MEDS: FARXIGA 10 MG PO (08:01)
[2024-08-02] MEDS: TOPROL XL 25 MG PO (08:02)
[2024-08-02 08:18] VITALS: BP 104/72
[2024-08-02] MEDS: ELIQUIS 5 MG PO ×2 (08:18→21:11)
[2024-08-02 09:01] LABS: ALT (SGPT) 77 U/L (0-50); AST (SGOT) 63 U/L (17-59); Albumin 4.3 g/dl (3.5-5.0); Alkaline Phosphatase 84 U/L (38-126); Blood Urea Nitrogen 55 mg/dl (9-20); Calcium 9.2 mg/dl (8.4-10.2); Carbon Dioxide 33 mmol/L (22-30); Chloride 93 mmol/L (98-107); Estimated Creatinine Clearance 52 ml/min; Glucose 130 mg/dl (70-99); Magnesium 2.4 mg/dl (1.6-2.3); Potassium 3.5 mmol/L (3.5-5.1); Sodium 138 mmol/L (135-145); Total Bilirubin 1.1 mg/dl (0.2-1.3); Total Protein 6.9 g/dl (6.3-8.2); eGFR 41.26
--- NOTE | 2024-08-02 11:29 | W.PN.HOSP.TC ---
Today's Communication/Plan
-
pending final card reccs and d/c
Assessment / Plan
Assessment / Plan
74y M with HTN, CAD, Afib, HLD, HFrEF, prosthetic AV, ascending aortic graft came with SOB and abd wall swelling, found significantly elevated proBNP and started on diuresis. Patient concerned that Lasix is not effective, so Bumex started which
resulted in improved diuresis. CT chest showed no pulmonary edema, but ascites and concern for liver cirrhosis, however ascites resolved on diuretics to the point that paracenthesis was not possible as per US. Outpatient GI is appropriate - patient
will arrange with his existent certified dietary manager . Weight decreased.
A/P:
#Acute on chronic HFrEF s/p ICD
# s/p TAVR (bioprosthetic)
#small right pleural effusion
#minimal left pleural effusion
Echo as of 07/14/24: EF 25-30%, global hypokinesis
Diuretics, daily weight, follow electrolytes
Cardio follows
#Abdominal ascites and concern for liver cirrhosis
can be 2/2 liver congestion due to CHF
paracenthesis
DOppler of portal system showed no PVT
Check HepC
#Atelectasis
Incentive spirometry
#DISH
tylenol
PT/OT
#Constipation
miralax
#DM type 2 with nephropathy
Insulin SS, Accuchecks, DM diet
#Essential HTN
#CKD stage 3a
#Paroxysmal Afib
#Depression/anxiety d/o
#COPD, not in exacerbation
#Ocular migraines
#Glaucoma
cont home meds
Telemetry
#Obesity with BMI 33.2
decrease calorie intake
DVT ppx Eliquis
Full code
I have spent at least 58min reviewing chart, test results, communication for consultants and direct patient care
Anticipated Discharge: Within 24 hours
Subjective/Interval History
-
Date of Service: August 02, 2024
Objective Data
-
Labs:
Laboratory Results
08/02/24
07:59
Sodium 138
Potassium 3.5
Chloride 93 L
Carbon Dioxide 33 H
BUN 55 H
Creatinine 1.7 H
Glucose 130 H
Calcium 9.2
Total Bilirubin 1.1
AST 63 H
ALT 77 H
Alkaline Phosphatase 84
Vital Signs:
Vital Signs
Temp Pulse Resp BP Pulse Ox
97.9 F 78 18 104/72 94
08/02/24 08:18 08/02/24 08:18 08/02/24 08:18 08/02/24 08:18 08/02/24 08:18
I&O
08/01/24 08/02/24 08/03/24
06:59 06:59 06:59
Intake Total 600 / 600 960 / 960
Output Total 2530 / 2530 875 / 875 300 / 300
Balance -1930 / -1930 85 / 85 -300 / -300
Review of Systems
-
History Source: Patient
All other systems: Reviewed and negative
Physical Exam
-
General: No Apparent Distress
Respiratory: Clear to Auscultation
GI: Soft, Nontender and Nondistended
Neuro: Awake, Alert, Oriented and AO x 3
Psych: Calm
[2024-08-02 11:54] LABS: Glucose - Point of Care 143 mg/dl (70-99)
--- NOTE | 2024-08-02 12:37 | PTCARENOTE ---
Patient with rigidity and tense facial muscle tone. Patient with complaints of pain in both arms and hands. Family requesting pain medication. MD notified. 1 mg of morphine administered as ordered. Will monitor for relief.
--- NOTE | 2024-08-02 15:06 | W.PN.CARDCBS ---
Today's Communication / Plan
-
Transition to oral Bumex, monitor response
LYNDSEY/ARB/ARNI as outpatient
Monitor renal function
Impression / Plan
-
.
PCP: Dr. Chintan Gonzalez
Cardiology: Dr. Gabriel
Impression
Presented 07/29/2024 with worsening shortness of breath
Acute on chronic heart failure with reduced ejection fraction, EF 25-30%, proBNP 12,600 and was 12,300 last admit
Acute renal failure with RI
Cardiomyopathy, mixed without improved ejection fraction despite optimal medical therapy
s/p Medtronic biventricular ICD 07/07/2024
LBBB
Hx NSVT
History of atrial fibrillation s/p cv 07/23/2023 on Eliquis
History of COVID September 2021
HTN
HLD
DM2
CAD s/p 1 vessel CABG 2009
s/p bioAVR 2009
JAMES not using CPAP
H/o Cough syncope
Radiculopathy
Depression
Ocular migraines
Renal calculi
Arthritis
Echo Jul 14, 2024: EF 25-30% with global hypo, enlarged RV, ICD in place well seated #23 bovine AVR with peak/mean grad of 27/19 mmHg respectively, trace pericardial effusion.
Echo 02/16/2024: EF 25%. Global hypokinesis with basal inferior and basal inferolateral akinesis. Stage III diastolic dysfunction. Moderate to severe MR. Severely dilated left atrium. #23 bovine aortic valve with peak/mean gradient 46/29 mmHg.
Mild AI. Mild TR. PAP 35 mmHg
Echocardiogram 08/03/2023: Ejection fraction 25 to 30%, hypokinetic septum, apex, inferior, anterior and distal lateral pelletier, mild concentric LVH, moderate MR, status post bioprosthetic AVR with mean gradient of 13 mm hG
Echocardiogram 06/28/2023: Dilated right ventricle with ejection fraction of 20 to 25%, status post bioprosthetic AVR with mean gradient of 15 mmHg, dilated right heart with PA systolic of 45 mmHg
Echocardiogram January 2022: Ejection fraction 40%, global hypokinesis, status post AVR with mean gradient of 10 mmHg
Cardiac catheterization 03/28/2024: LM: LI. LAD: Moderate to severe diffuse atherosclerotic plaque. D2 has 30% stenosis. Left circumflex: Mid 60 to 70% stenosis. RCA: LI.
HEMODYNAMICS : (mmHg) RA (m) : 22; RV (s/d,m) : 72/14, 24; PA (s/d, m) : 72/34, 50; PCWP (m) : 34, V waves to 53 mmHg; PA saturation: 62.5% on room air; AO saturation: 93.6% on room air;
Cardiac Output : 5.58 L/min; Cardiac Index : 2.23 L/min/m-2; Systemic vascular resistance: 889 dsc^(-5); Pulmonary vascular resistance: 2.87 willams unit; AO (s/d) : 102/61; LV (s/d) : 131/21; LVEDP : 30
Estimated invasive transaortic gradient of 27 mmHg, aortic valve area 1.3 cm�
Significantly elevated right and left-sided filling pressures with severe pulmonary hypertension and normal cardiac output. Borderline low systemic vascular resistance.
Lexiscan sestamibi stress test 07/13/2023: Moderate sized medium in severity fixed basal to distal inferior, basal to mid inferoseptal, small mid anterior perfusion defect with no evidence of ischemia. Ejection fraction 21% with severe global
hypokinesis
Plan:
Presented 07/29/2024 with acute on chronic heart failure with reduced ejection fraction and worsening pBNP (12,600) dyspnea on exertion and wt gain.
Ongoing IV diuresis with IV Bumex. Patient lost 3 pounds overnight and is down 6 pounds since admission, creat 1.8
Lasix ( poor diuretic response) transitioned to Bumex on 07/31/2024. Patient reports significant improvement of urination after IV Bumex. Patient may be Lasix na�ve and would consider discharging home on Bumex in place of Lasix
Creatinine 1.8 after getting 1 dose of metolazone 2.5 mg on 07/30/2023. Metolazone currently on hold. He has some baseline CRI.; Can transition to p.o. Bumex given patient's response to IV Bumex
Continue to monitor and trend weight and renal function
Monitor cr and Is and Os and daily wt.
Recent BiV ICD placement Jun 2024. EKG atrial sensed V paced.
Cont to replete K and Mg as needed given NSVT; give KCL 40 meq this am and another 40 meq this afternoon
Cont Amiodarone for hx NSVT and aFib
Cont Eliquis for AFib
Cont GDMT for CM including Toprol, Aldactone, Jardiance.
-Hypotension has prevented initiation of LYNDSEY/ARB in past and now with worsening RI; can consider reinitiation as outpatient given low blood pressure/renal function here inpatient
Ongoing ascites with concern for cirrhosis. Primary service has ordered liver ultrasound and possible paracentesis
Progress Note - Communications Scientist
Subjective
Date of Service: August 02, 2024
Patient seen and examined. Patient reports significant improvement in breathing. Denies any chest pain, shortness of breath, palpitations, or edema. Still notes mild abdominal distention.
Objective
Labs:
08/01/24 07:38
08/02/24 07:59
Labs
Hgb 14.3 g/dL (13.0-18.0) 08/01/24 07:38
Hct 45.2 % (39.0-52.0) 08/01/24 07:38
Plt Count 152 10^3/uL (130-400) 08/01/24 07:38
Sodium 138 mmol/L (135-145) 08/02/24 07:59
Potassium 3.5 mmol/L (3.5-5.1) 08/02/24 07:59
BUN 55 mg/dl (9-20) H 08/02/24 07:59
Creatinine 1.7 mg/dL (0.7-1.3) H 08/02/24 07:59
Glucose 130 mg/dl (70-99) H 08/02/24 07:59
Vital Signs and I&O:
Vital Signs
Temp Pulse Resp BP Pulse Ox
97.9 F 78 18 104/72 97
08/02/24 08:18 08/02/24 08:18 08/02/24 08:18 08/02/24 08:18 08/02/24 11:50
Vital Signs
Temp Pulse Resp BP Pulse Ox
97.9 F 78 18 104/72 97
08/02/24 08:18 08/02/24 08:18 08/02/24 08:18 08/02/24 08:18 08/02/24 11:50
Intake & Output
07/31/24 08/01/24 08/02/24 08/03/24
06:59 06:59 06:59 06:59
Intake Total 1200 / 1200 600 / 600 960 / 960 720 / 720
Output Total 1430 / 1430 2530 / 2530 875 / 875 300 / 300
Balance -230 / -230 -1930 / -1930 85 / 85 420 / 420
Physical Exam
Physical Exam
GEN: No distress, awake, Ox3, sitting up on side of bed
HEENT: supple, anicteric, mmm
LUNGS: CTA, no wheezes/rales
CV: Reg, S1/S2, 1/6 syst murmur, no rub or gallop
ABD: Firm, distended, positive bowel sounds
EXT: No edema, clubbing or cyanosis
NEURO: Gross non-focal
SKIN: No rash, warm, dry, pink
[2024-08-02 16:38] VITALS: BP 113/75
[2024-08-02 16:47] LABS: Glucose - Point of Care 134 mg/dl (70-99)
[2024-08-02 21:02] LABS: Glucose - Point of Care 156 mg/dl (70-99)
[2024-08-02] MEDS: ZOLOFT 50 MG PO (21:11)
[2024-08-02] MEDS: CRESTOR 10 MG PO (21:11)
[2024-08-02] MEDS: XALATAN OPHTHALMIC SOLUTION 1 DROP RIGHT EYE (21:12)
[2024-08-02 23:47] VITALS: BP 114/76
[2024-08-03 06:00] VITALS: BMI 33.7
[2024-08-03 07:50] VITALS: BP 114/79
[2024-08-03] MEDS: NOVOLOG FLEXPEN-LOW RESISTANCE SC (08:22)
[2024-08-03] MEDS: TYLENOL 650 MG PO (08:23)
[2024-08-03] MEDS: FARXIGA 10 MG PO (08:24)
[2024-08-03] MEDS: ELIQUIS 5 MG PO (08:24)
[2024-08-03] MEDS: PACERONE 200 MG PO (08:24)
[2024-08-03] MEDS: ALDACTONE 12.5 MG PO (08:24)
[2024-08-03] MEDS: TOPROL XL 25 MG PO (08:24)
[2024-08-03] MEDS: ASPIR LOW (ENTERIC COATED) 81 MG PO (08:24)
[2024-08-03] MEDS: BUMEX 2 MG IV (08:25)
--- NOTE | 2024-08-03 09:46 | W.PN.CARDCBS ---
Addendum entered and electronically signed by Beth Larsen PA-C 08/03/24 15:08:
Impression
Presented w/ SOB
Acute on chronic HFrEF, proBNP 12,600
Renal insufficiency
Cardiomyopathy, mixed without improved ejection fraction despite optimal medical therapy
s/p Medtronic biventricular ICD 07/07/2024
LBBB
CAD
s/p 1 vessel CABG 2009s/p bio AVR 2009
Paroxysmal atrial fibrillation
s/p cv 07/23/2023 Chronic AC w/ Eliquis
h/o NSVT
h/o COVID September 2021
HTN
HLD
DM2
JAMES not using CPAP
h/o cough syncope
Radiculopathy
Depression
Ocular migraines
Renal calculi
Arthritis
Addendum entered and electronically signed by Ldumila Diaz DO 08/03/24 12:02:
I saw and examined the patient.
The Roper Operator's note was reviewed and I agree with the note.
Comment: Patient seen and examined. Chart/telemetry reviewed. He is anxious for discharge home and already dressed. Denies shortness of breath and reports improved edema. No chest pain or pressure. No dizziness.
GEN: No distress, awake, alert, oriented x3
HEENT:mmm
LUNGS: CTA b/l, no wheezes/rales
CV: Reg, S1/S2, no murmur. Device site intact without hematoma. Steri-Strips present
EXT: No edema
NEURO: Gross non-focal
Plan:
Presented 07/29/2024 with acute on chronic heart failure with reduced ejection fraction and worsening pBNP (12,600) dyspnea on exertion and wt gain.
-He has diuresed well with IV Bumex with improved symptoms.
-Transition from Lasix to Bumex with better response. Will transition to Bumex 2 mg p.o. twice daily
-Continue medical therapy with Jardiance, Toprol, and spironolactone.
-Check BMP in 1 week as OP.
-Pertinent labs:
-08/03/2024, creatinine 1.6, sodium 137, magnesium 2.4. AST 54, ALT 67 (improved AST 66, ALT 75), hemoglobin 14.3, WBC 7.2, platelets 152,000.
-proBNP 07/13/2024 73078, 07/29/2024 73421, 08/01/2024 12,000
-2D echocardiogram 07/14/2024: Technically difficult study. Severely reduced left ventricular systolic function with a EF 25-30%. Enlarged right ventricle with reduced right ventricular systolic function and right sided ICD wires present.
Well-seated #23 bovine aortic valve with peak/mean gradients 27/19 mmHg. Trivial pericardial effusion.
-Abdominal ultrasound 08/01/2024: Dilated liver and hepatic veins with no portal venous thrombosis. Small volume ascites. No hydronephrosis. Pancreas, upper abdominal aorta and inferior vena cava not well-visualized
-CT of the chest without contrast 07/31/2024: Small right pleural effusion with minimal left pleural effusion. Moderate ascites new since 2022. Liver suggest cirrhosis. No pericardial effusion. Suggestive of a ascending aortic graft without
significant dilatation of thoracic aorta
-Reviewed heart failure diet/fluid restrictions and monitoring
-Follow up arranged.
Recent BiV ICD placement Jun 2024. EKG atrial sensed V paced.
-Cont Amiodarone for hx NSVT and aFib
-Cont Eliquis for AFib
Outpatient cardiac follow-up to be arranged
Stable from a cardiovascular perspective for discharge home today
Original Note:
Today's Communication / Plan
-
Transition to PO bumex 2mg BID
Follow up BMP in 1 week
Follow up visit arranged
Continue aspirin and Eliquis
Continue Jardiance, spironolactone, and Toprol
Continue amiodarone
Replete K
Impression / Plan
-
PCP: Dr. Chintan Gonzalez
Cardiology: Dr. Gabriel
Impression
Presented w/ SOB
Acute on chronic HFrEF, proBNP 12,600
JAI
Cardiomyopathy, mixed without improved ejection fraction despite optimal medical therapy
s/p Medtronic biventricular ICD 07/07/2024
LBBB
CAD
s/p 1 vessel CABG 2009
s/p bio AVR 2009
Paroxysmal atrial fibrillation
s/p cv 07/23/2023
Chronic AC w/ Eliquis
h/o NSVT
h/o COVID September 2021
HTN
HLD
DM2
JAMES not using CPAP
h/o cough syncope
Radiculopathy
Depression
Ocular migraines
Renal calculi
Arthritis
Lexiscan sestamibi stress test 07/13/2023: Moderate sized medium in severity fixed basal to distal inferior, basal to mid inferoseptal, small mid anterior perfusion defect with no evidence of ischemia. Ejection fraction 21% with severe global
hypokinesis
Cardiac catheterization 03/28/2024: LM: LI. LAD: Moderate to severe diffuse atherosclerotic plaque. D2 has 30% stenosis. Left circumflex: Mid 60 to 70% stenosis. RCA: LI.
HEMODYNAMICS : (mmHg) RA (m) : 22; RV (s/d,m) : 72/14, 24; PA (s/d, m) : 72/34, 50; PCWP (m) : 34, V waves to 53 mmHg; PA saturation: 62.5% on room air; AO saturation: 93.6% on room air;
Cardiac Output : 5.58 L/min; Cardiac Index : 2.23 L/min/m-2; Systemic vascular resistance: 889 dsc^(-5); Pulmonary vascular resistance: 2.87 willams unit; AO (s/d) : 102/61; LV (s/d) : 131/21; LVEDP : 30
Estimated invasive transaortic gradient of 27 mmHg, aortic valve area 1.3 cm�
Significantly elevated right and left-sided filling pressures with severe pulmonary hypertension and normal cardiac output. Borderline low systemic vascular resistance.
Echo 01/2022: Ejection fraction 40%, global hypokinesis, status post AVR with mean gradient of 10 mmHg
Echo 06/28/2023: Dilated right ventricle with ejection fraction of 20 to 25%, status post bioprosthetic AVR with mean gradient of 15 mmHg, dilated right heart with PA systolic of 45 mmHg
Echo 08/03/2023: Ejection fraction 25 to 30%, hypokinetic septum, apex, inferior, anterior and distal lateral pelletier, mild concentric LVH, moderate MR, status post bioprosthetic AVR with mean gradient of 13 mm hG
Echo 02/16/2024: EF 25%. Global hypokinesis with basal inferior and basal inferolateral akinesis. Stage III diastolic dysfunction. Moderate to severe MR. Severely dilated left atrium. #23 bovine aortic valve with peak/mean gradient 46/29 mmHg.
Mild AI. Mild TR. PAP 35 mmHg
Echo 07/14/2024: EF 25-30% with global hypo, enlarged RV, ICD in place well seated #23 bovine AVR with peak/mean grad of 27/19 mmHg respectively, trace pericardial effusion.
Plan:
-Presented with worsening SOB and admitted with acute HFrEF. ProBNP 12,600.
-Diuresing with IV bumex 2mg BID, weight overall unchanged, however symptomatically improved. Weight 08/03 269lbs, however patient reports he had all of his clothing on.
-JAI noted this admission. Creat improving, down to 1.6 08/03. Metolazone remains on hold.
-Will transition to PO bumex 2mg BID at discharge.
-Echo 07/14 noted EF 25-30%. Continue medical therapy with Jardiance, Toprol, and spironolactone.
-Check BMP in 1 week as OP.
-Recent BiV ICD implanted 06/2024.
-Continues on amiodarone for h/o NSVT and Afib.
-Continue Eliquis 5mg BID.
-K 3.4. Will replete.
-Follow up arranged.
HPI: Patient is a 74 YOM with male with past medical history significant for CAD status post CABG x 1 and AVR 2009, paroxysmal atrial fibrillation not on chronic anticoagulation, obstructive sleep apnea with intolerance to CPAP, mixed
cardiomyopathy, left bundle branch block, ventricular tachycardia status post biventricular ICD June 2024, chronic heart failure with reduced ejection fraction, hypertension, hyperlipidemia, type 2 diabetes who presents to emergency department
after being directed by his PCP due to worsening pBNP, wt gain and concerns about HF. He admits to dyspnea on exertion and his wt being up 10 lbs. He feels distended but not ascites on abd xray noted by report. He was recently admitted Jul 13 with
progressively worsening dyspnea on exertion and abdominal distention since ICD implant and was admitted with HF. He left AMA 24 hrs later.
He had previously related some of his wt gain to constipation. He is now admitted with HF. He last saw Dr Gabriel in the office May 2024 prior to ICD placement.
Progress Note - Builder Beam
Subjective
Date of Service: August 03, 2024
No complaints. Breathing back to baseline. No edema.
Objective
Labs:
08/01/24 07:38
Labs
Hgb 14.3 g/dL (13.0-18.0) 08/01/24 07:38
Hct 45.2 % (39.0-52.0) 08/01/24 07:38
Plt Count 152 10^3/uL (130-400) 08/01/24 07:38
Sodium 138 mmol/L (135-145) 08/02/24 07:59
Potassium 3.5 mmol/L (3.5-5.1) 08/02/24 07:59
BUN 55 mg/dl (9-20) H 08/02/24 07:59
Creatinine 1.7 mg/dL (0.7-1.3) H 08/02/24 07:59
Glucose 130 mg/dl (70-99) H 08/02/24 07:59
Vital Signs and I&O:
Vital Signs
Temp Pulse Resp BP Pulse Ox
97.4 F 84 18 114/79 98
08/03/24 07:50 08/03/24 08:24 08/03/24 07:50 08/03/24 08:24 08/03/24 07:50
Vital Signs
Temp Pulse Resp BP Pulse Ox
97.4 F 84 18 114/79 98
08/03/24 07:50 08/03/24 08:24 08/03/24 07:50 08/03/24 08:24 08/03/24 07:50
Intake & Output
08/01/24 08/02/24 08/03/24 08/04/24
06:59 06:59 06:59 06:59
Intake Total 600 / 600 960 / 960 1620 / 1620 300 / 300
Output Total 2530 / 2530 875 / 875 2675 / 2675 400 / 400
Balance -1930 / -1930 85 / 85 -1055 / -1055 -100 / -100
Physical Exam
Physical Exam
GEN: No distress, awake, alert, oriented x3
HEENT: supple, anicteric, mmm
LUNGS: CTA b/l, no wheezes/rales
CV: Reg, S1/S2, 1/6 syst murmur, no rub or gallop
EXT: No edema, clubbing or cyanosis
NEURO: Gross non-focal
SKIN: No rash, warm, dry, pink
--- NOTE | 2024-08-03 10:41 | CM ---
Chart reviewed for d/c planning.
Per chart, pt possible for d/c today pending cardiology
Met w/ pt bedside who confirmed he is awaiting cardio clearance.
IMM reviewed, pt given copy, copy placed in chart
Per pt, spouse will transport at d/c
Plan: Home; no needs when cleared by cardiology
[2024-08-03 10:49] LABS: ALT (SGPT) 67 U/L (0-50); AST (SGOT) 54 U/L (17-59); Albumin 4.4 g/dl (3.5-5.0); Alkaline Phosphatase 82 U/L (38-126); Blood Urea Nitrogen 54 mg/dl (9-20); Calcium 9.3 mg/dl (8.4-10.2); Carbon Dioxide 31 mmol/L (22-30); Chloride 91 mmol/L (98-107); Estimated Creatinine Clearance 55 ml/min; Glucose 184 mg/dl (70-99); Magnesium 2.4 mg/dl (1.6-2.3); Potassium 3.4 mmol/L (3.5-5.1); Sodium 137 mmol/L (135-145); Total Bilirubin 1.2 mg/dl (0.2-1.3); Total Protein 6.9 g/dl (6.3-8.2); eGFR 44.38
--- NOTE | 2024-08-03 11:05 | W.PN.HOSP.TC ---
Today's Communication/Plan
-
dc
Assessment / Plan
Assessment / Plan
74y M with HTN, CAD, Afib, HLD, HFrEF, prosthetic AV, ascending aortic graft came with SOB and abd wall swelling, found significantly elevated proBNP and started on diuresis. Patient concerned that Lasix is not effective, so Bumex started which
resulted in improved diuresis. CT chest showed no pulmonary edema, but ascites and concern for liver cirrhosis, however ascites resolved on diuretics to the point that paracentesis was not possible as per US. Outpatient GI is appropriate - patient
will arrange with his existent camera tuning engineer . Weight decreased and cardiology started oral bumex. Medically stable for d/c home
A/P:
#Acute on chronic HFrEF s/p ICD
# s/p TAVR (bioprosthetic)
#small right pleural effusion
#minimal left pleural effusion
Echo as of 07/14/24: EF 25-30%, global hypokinesis
Diuretics, daily weight, follow electrolytes
Cardio follows
#Abdominal ascites and concern for liver cirrhosis
can be 2/2 liver congestion due to CHF
paracenthesis
DOppler of portal system showed no PVT
Check HepC
#Atelectasis
Incentive spirometry
#DISH
tylenol
PT/OT
#Constipation
miralax
#DM type 2 with nephropathy
Insulin SS, Accuchecks, DM diet
#Essential HTN
#CKD stage 3a
#Paroxysmal Afib
#Depression/anxiety d/o
#COPD, not in exacerbation
#Ocular migraines
#Glaucoma
cont home meds
Telemetry
#Obesity with BMI 33.2
decrease calorie intake
DVT ppx Eliquis
Full code
I have spent at least 58min reviewing chart, test results, communication for consultants and direct patient care
Anticipated Discharge: Today
Subjective/Interval History
-
Date of Service: August 03, 2024
Objective Data
-
Labs:
Laboratory Results
08/03/24
08:33
Sodium 137
Potassium 3.4 L
Chloride 91 L
Carbon Dioxide 31 H
BUN 54 H
Creatinine 1.6 H
Glucose 184 H
Calcium 9.3
Total Bilirubin 1.2
AST 54
ALT 67 H
Alkaline Phosphatase 82
Vital Signs:
Vital Signs
Temp Pulse Resp BP Pulse Ox
97.4 F 84 18 114/79 98
08/03/24 07:50 08/03/24 08:24 08/03/24 07:50 08/03/24 08:24 08/03/24 10:55
I&O
08/02/24 08/03/24 08/04/24
06:59 06:59 06:59
Intake Total 960 / 960 1620 / 1620 300 / 300
Output Total 875 / 875 2675 / 2675 400 / 400
Balance 85 / 85 -1055 / -1055 -100 / -100
Review of Systems
-
History Source: Patient
All other systems: Reviewed and negative
Physical Exam
-
General: No Apparent Distress
HEENT: Normocephalic
Respiratory: Clear to Auscultation
GI: Soft, Nontender and Nondistended
Neuro: Awake, Alert, Oriented and AO x 3
Psych: Calm
--- NOTE | 2024-08-03 11:10 | W.DCSUMMARY ---
Discharge Summary
Discharge Data
Date of Admission: 07/29/24
Date of Discharge: 08/03/24
-
Pending Results: No
Hospital Course
74y M with HTN, CAD, Afib, HLD, HFrEF, prosthetic AV, ascending aortic graft came with SOB and abd wall swelling, found significantly elevated proBNP and started on diuresis. Patient concerned that Lasix is not effective, so Bumex started which
resulted in improved diuresis. CT chest showed no pulmonary edema, but ascites and concern for liver cirrhosis, however ascites resolved on diuretics to the point that paracentesis was not possible as per US. Outpatient GI is appropriate - patient
will arrange with his existent die cast operator . Weight decreased and cardiology started oral bumex. Medically stable for d/c home
I have spent at least 58min reviewing chart, test results, communication for consultants and direct patient care
Patient was managed for:
#Acute on chronic HFrEF s/p ICD
# s/p TAVR (bioprosthetic)
#small right pleural effusion
#minimal left pleural effusion
#Abdominal ascites and concern for liver cirrhosis
#Atelectasis
#DISH
#Constipation
#DM type 2 with nephropathy
#Essential HTN
#CKD stage 3a
#Paroxysmal Afib
#Depression/anxiety d/o
#COPD, not in exacerbation
#Ocular migraines
#Glaucoma
#Obesity with BMI 33.2
Discharge Plan
-
Patient Disposition: Home (Routine Discharge)
Discharge Diagnosis/Procedures: CHF
Diet: Low Sodium and Diabetic, Carb Controlled
Activity: As tolerated
Driving Restrictions: As prior to admission
Instructions: *[facility] Heart Failure Instructions
Referrals:
Chintan Gonzalez MD [Family Provider] -
Jadon Michael MD [Active] - in less than 1 week (CHF management)
Angie Allen MD [Active] - in four to six weeks (eval for liver disease)
Prescriptions:
New
bumetanide 2 mg tablet
2 mg PO BID Qty: 60 0RF
Continued
metoprolol succinate 25 MG tablet extended release 24 hr
25 mg PO DAILY
amiodarone 200 mg Tablet
200 mg PO DAILY
aspirin 81 mg Tablet,Delayed Release (Dr/Ec)
81 mg PO DAILY
Jardiance 10 mg Tablet
10 mg PO DAILY
Eliquis 5 MG tablet
5 mg PO BID
spironolactone 12.5 MG tablet
12.5 mg PO DAILY 30 Days Qty: 15 6RF
sertraline [Zoloft] 50 mg Tablet
50 mg PO HS
latanoprost 0.005 % drops
1 drp RIGHT EYE HS
rosuvastatin 20 mg tablet
10 mg PO HS
polyethylene glycol 3350 [Miralax] 17 gram Powder In Packet
17 g PO DAILYPRN PRN (Reason: constipation)
Discontinued
furosemide 80 mg tablet
80 mg PO BID AT 0800,1600 Qty: 60 6RF
Discharge Orders:
Discharge Patient (As Directed); Ordered 08/03/24
Ordered By: Matt Loera
Discharge Date and Time
Print Language: OCCITAN
[2024-08-03 11:42] VITALS: BP 108/71
[2024-08-03] MEDS: KCL 40 MEQ PO (12:00)
--- NOTE | 2024-08-03 14:39 | PN.CDI ---
CDI
- -
CDI:
Physician Documentation Request
Admit Date: 07/29/24 17:28
Dear Beth Larsen,
Cardiology progress note includes 'JAI noted this admission.'
Hospitalist states CKD3 a
Patient creatinine:
Laboratory Tests
07/29/24 07/30/24 07/31/24
12:04 07:48 07:44
Creatinine 1.6 H 1.7 H 1.8 H
08/01/24 08/02/24 08/03/24
07:38 07:59 08:33
Creatinine 1.8 H 1.7 H 1.6 H
Criteria for JAI*
1 Increase in serum creatinine by > or = to 0.3 mg/dL (> or = to 26.5 micromol/L) within 48 hours, OR
2 Increase in serum creatinine to > or = to 1.5 times baseline, which is known or presumed to have occurred within 7 days, OR
3 Urine volume < 0.5 nL/kg/hour for six hours
Based on the above information and the recognized standard for JAI could you please verify this diagnoses is still accurate and reflective of the patient�s condition to ensure quality of the medical record.
Please clarify in the Progress Notes:
�JAI is/was present and is a clinical diagnosis based on (please include this additional support in the medical record)
�After study JAI has been ruled out
�Other
Use of terms such as suspected, likely, concern for, or probable (associated with a specific diagnosis that is being evaluated, monitored, or treated as if it exists) are acceptable and can be coded in the inpatient setting, when documented at the
time of discharge.
Thank you,
Marisol Sheehan RN, BSN
CDI Specialist
tiger text
Please use your independent medical judgment in providing your response.
== END 2024-08-03 12:11 | disposition home or self-care (01) | DRG 291 ==
LOC: 4 EAST ACU 17:28
PROVIDERS: ADMITTING PHYSICIAN Internal Medicine; ATTENDING PHYSICIAN Internal Medicine; EMERGENCY PHYSICIAN Emergency Medicine; FAMILY PHYSICIAN Family Medicine; OTHER PHYSICIAN Nuclear Medicine Nuclear Cardiology
DX: I13.0 Hypertensive heart and chronic kidney disease with heart failure and stage 1 through stage 4 chronic kidney disease, or unspecified chronic kidney disease (principal); I50.23 Acute on chronic systolic (congestive) heart failure; J98.11 Atelectasis; N17.9 Acute kidney failure, unspecified; R18.8 Other ascites; I44.7 Left bundle-branch block, unspecified; I42.8 Other cardiomyopathies; I48.0 Paroxysmal atrial fibrillation; N18.31 Chronic kidney disease, stage 3a; E78.00 Pure hypercholesterolemia, unspecified; I34.0 Nonrheumatic mitral (valve) insufficiency; F32.A Depression, unspecified; F41.9 Anxiety disorder, unspecified; H40.9 Unspecified glaucoma; E66.09 Other obesity due to excess calories; E11.22 Type 2 diabetes mellitus with diabetic chronic kidney disease; E11.40 Type 2 diabetes mellitus with diabetic neuropathy, unspecified; E11.319 Type 2 diabetes mellitus with unspecified diabetic retinopathy without macular edema; F17.290 Nicotine dependence, other tobacco product, uncomplicated; G47.33 Obstructive sleep apnea (adult) (pediatric); I25.10 Atherosclerotic heart disease of native coronary artery without angina pectoris; I27.20 Pulmonary hypertension, unspecified; J44.9 Chronic obstructive pulmonary disease, unspecified; K59.00 Constipation, unspecified; K74.60 Unspecified cirrhosis of liver; M48.10 Ankylosing hyperostosis [Forestier], site unspecified; M54.10 Radiculopathy, site unspecified; Z68.34 Body mass index [BMI] 34.0-34.9, adult; Z95.810 Presence of automatic (implantable) cardiac defibrillator; Z95.3 Presence of xenogenic heart valve; Z95.1 Presence of aortocoronary bypass graft; Z86.16 Personal history of COVID-19; Z82.49 Family history of ischemic heart disease and other diseases of the circulatory system; Z79.899 Other long term (current) drug therapy; Z79.01 Long term (current) use of anticoagulants; Z79.82 Long term (current) use of aspirin; Z79.84 Long term (current) use of oral hypoglycemic drugs
CPT/HCPCS: 71046; 71250; 74019; 76700; 76705; 80048; 80053; 82962; 83735; 83880; 85025; 86803; 93005; 93975; 96374; 99284

== ENCOUNTER → 2024-08-08 09:17 | Outpatient (REF) | payer MEDICARE, SELFPAY ==
[2024-08-08 10:41] LABS: Blood Urea Nitrogen 38 mg/dl (9-20); Calcium 8.9 mg/dl (8.4-10.2); Carbon Dioxide 34 mmol/L (22-30); Chloride 93 mmol/L (98-107); Glucose 152 mg/dl (70-99); Potassium 3.4 mmol/L (3.5-5.1); Sodium 138 mmol/L (135-145); eGFR 33.95
== END ==
LOC: REG 09:17
PROVIDERS: ATTENDING PHYSICIAN Internal Medicine Cardiovascular Disease; FAMILY PHYSICIAN Family Medicine
DX: I48.0 Paroxysmal atrial fibrillation (principal)
CPT/HCPCS: 36415; 80048

== ENCOUNTER → 2024-08-15 11:04 | Outpatient (REF) | payer MEDICARE, SELFPAY ==
[2024-08-15 12:05] LABS: NT-proBNP 14500 pg/ml
[2024-08-15 12:06] LABS: Blood Urea Nitrogen 60 mg/dl (9-20); Carbon Dioxide 36 mmol/L (22-30); Chloride 92 mmol/L (98-107); Glucose 138 mg/dl (70-99); Potassium 3.7 mmol/L (3.5-5.1); Sodium 139 mmol/L (135-145); eGFR 30.28
== END ==
LOC: REG 11:04
PROVIDERS: ATTENDING PHYSICIAN Physician Assistant; FAMILY PHYSICIAN Family Medicine; REFERRING PHYSICIAN Specialist
DX: I50.20 Unspecified systolic (congestive) heart failure (principal)
CPT/HCPCS: 36415; 80048; 83880

== ENCOUNTER 2024-08-21 13:31 | Inpatient (IN) | payer MEDICARE, SELFPAY ==
[2024-08-21] VITALS (33 sets, daily range): BP systolic 78–122; BP diastolic 47–88; PULSE 2–82; BMI 36.1
[2024-08-21 07:04] LABS: Glucose - Point of Care 193 mg/dl (70-99)
[2024-08-21] MEDS: PRIMACOR 20 MG 100 IV ×2 (09:33→18:55)
--- NOTE | 2024-08-21 09:36 | ITS.CL.CATH ---
[employer] - Catheterization
Cardiac Catheterization
Procedure Report:
RIGHT HEART CATHETERIZATION
Date of Procedure: August 21, 2024
Referring: STANTON Castlilo and Jamal Gabriel MD
PROCEDURES:
1. Right heart catheterization
2. Ultrasound-guided access
INDICATION: Assess invasive hemodynamics in the setting of progressively worsening heart failure symptoms despite escalating diuretics as an outpatient
ACCESS: Right common femoral vein, 6 Latvian sheath, under ultrasound guidance using a micropuncture kit
Ultrasound was utilized for vascular access. The RCFV was visualized under ultrasound, and the vessel was patent and compressible. A printed image was stored permanently in the patient's medical record. Under direct ultrasound guidance, a 6
Latvian sheath was inserted into the vein using a micropuncture kit through a modified Seldinger technique.
Hemodynamics (mmHg):
RA (m) : 30
RV (s/d,m) : 68/16, 33
PA (s/d, m) : 63/38, 48
PCWP (m) : 35 with V waves to 42
PA saturation: 37.9% on 2 L of oxygen via nasal cannula (recheck stable at 36.7%)
AO saturation: 98% by peripheral pulse ox on 2 L of oxygen via nasal cannula
RA saturation: 42.4% on 2 L of oxygen via nasal cannula
Cardiac Output : 2.34 L/min
Cardiac Index : 0.96 L/min/m-2
Systemic vascular resistance: 1880 dsc^(-5)
Pulmonary vascular resistance: 6.85 willams unit
Heart rate: 73 bpm
RADIATION SUMMARY: Fluoro Time (min): 2.4, Dose (mGy): 56.56 DAP (Gy.cm2) : 9.91
CONCLUSION:
1. Severely elevated right and left-sided filling pressures with severe pulmonary hypertension and severely reduced cardiac output in the setting of elevated systemic vascular resistance
Copy to: STANTON Castillo and Jamal Gabriel MD
Pat Nuñez MD, FACC, [facility]
[2024-08-21 11:05] LABS: Glucose - Point of Care 175 mg/dl (70-99)
--- NOTE | 2024-08-21 11:45 | HPS.HSE ---
Family Physician
-
Family Physician: Chintan Gonzalez
Chief Complaint
-
acute on chronic CHF
HUSSEIN x 1 week
History of Present Illness
74 y/o M, hx of Obesity, HTN, HLD, T2DM, Afib on Rliquis, Hx of LBBB, hx of BioAVR and 1 vessel CABG, JAMES not compliance on CPAP, s/p ICD presents to laboratory phlebotomist for elective RHC. Patient does endorse worsening HUSSEIN with limited activity, along with abd
distention and weight gain, particularly with leg edema.. He was previously on Lasix, later trialed on Bumex (developed rash) and now is on Torsemide. Today's RHC showed cardiac index of 1.0 and elevated wedge pressures of 37 prompting admission to
hospital for IV Lasix and Milrinone per Dr. Bahena. Met with patient in post-cath recovery area and he stables breathing is comfortable, no chest pain at present.
Medical History
Past Medical History
Past Medical History: Reports Other (hx of Obesity, HTN, HLD, T2DM, Afib on Rliquis, Hx of LBBB, hx of BioAVR and 1 vessel CABG, JAMES not compliance on CPAP, s/p ICD)
Past Surgical History: Reports Other (see PMH)
Social History
Tobacco: Smoker (occasional cigar)
Alcohol: Daily
Drug: None
Personal:
Living: With Family
Employment: Retired
Family History
Family History: Not pertinent
Allergies / Home Medications
Allergies reflects when Allergies were last updated in [facility].
Home Medications with original date entered in [facility]
Allergy/Medication List:
Allergies
Allergy/AdvReac Type Severity Reaction Status Date / Time
bumetanide [From Bumex] Allergy Severe Rash Verified 08/21/24 07:08
Home Medications
metoprolol succinate 25 mg tablet,extended release 24 hr 25 mg PO DAILY Blood pressure 10/01/21
amiodarone 200 mg tablet 200 mg PO DAILY Arrhythmia 07/23/23
apixaban 5 mg tablet (Eliquis) 5 mg PO BID blood thinner 07/23/23
aspirin 81 mg tablet,delayed release 81 mg PO DAILY blood thinner 07/23/23
empagliflozin 10 mg tablet (Jardiance) 10 mg PO DAILY Diabetes 07/23/23
spironolactone 25 mg tablet 12.5 mg (1/2 x 25 mg) PO DAILY 30 days #15 tabs 03/28/24
sertraline 50 mg tablet (Zoloft) 50 mg PO HS Depression 06/29/24
latanoprost 0.005 % eye drops 1 drp RIGHT EYE HS Eye Condition 07/13/24
rosuvastatin 20 mg tablet 40 mg PO HS High Cholesterol 07/13/24
polyethylene glycol 3350 17 gram oral powder packet (Miralax) 17 g PO DAILYPRN PRN constipation 07/29/24
prednisone 20 mg tablet 40 mg PO DAILY 08/21/24
rosuvastatin 20 mg tablet 60 mg PO DAILY AT 0700 08/21/24
Review of Systems
-
History Source: Patient
A 12 point ROS was completed and negative except as noted: Yes
Respiratory: Reports See HPI
Cardiac: Reports See HPI
Physical Exam
Vital Signs
Vital Signs
Temp Pulse Resp BP Pulse Ox
96.9 F L 77 16 118/87 98
08/21/24 09:23 08/21/24 11:00 08/21/24 11:00 08/21/24 10:39 08/21/24 11:00
Physical Exam
General: Respiratory Distress (mild, laying flat)
HEENT: NormoCephalic and Anicteric
Respiratory: Crackles
Cardiac: S1/S2 and Regular Rhythm
GI: Non Tender and Distended
Musculoskeletal: Edema, Left Lower Extremity (3+) and Edema, Right Lower Extremity (3+)
Neuro: AO x 3
Hematologic/Lymphatic: No Lymphadenopathy
Psych: Calm
Data Reviewed
-
Lab Data: Labs Reviewed by me
Impression/Plan
-
Assessment:
Acute on chronic heart failure with reduced ejection fraction, EF 25-30%
Cardiomyopathy, mixed without improved ejection fraction despite optimal medical therapy
s/p Medtronic biventricular ICD 07/07/2024
- BNP 14,500 most recently; repeat today
- s/p RHC with Severely elevated right and left-sided filling pressures with severe pulmonary hypertension and severely reduced cardiac output (cardiac index .96) in the setting of elevated systemic vascular resistance. Wedge 35.
- started on Milrinone for cardiogenic shock
- continue IV Lasix - requires intensive monitoring of weights, lytes, I/Os
- may need additional support in form of IABP or Impella
- hold GDMT therapy for now; Aldactone/BB
- DCA cards consulting
Abdominal distention
- check US to evaluate for ascites burden
CKD stage 3b
- Nephrology consult at cardiology request.
LBBB
Hx NSVT
- s/p Medtronic biventricular ICD 07/07/2024
History of atrial fibrillation s/p cv 07/23/2023
- continue Amiodarone
- IV Heparin drip; holding Eliquis in case additional support needed for advanced CHF
History of COVID September 2021
HTN
- holding BP meds
HLD
- continue statin
DM2
- hold Jardiance
- add SSI
- A1c: 7.2% recently
CAD s/p 1 vessel CABG 2009
- continue ASA/Statin
s/p bioAVR 2009
JAMES not using CPAP
H/o Cough syncope
Radiculopathy
Depression - on Zoloft
Ocular migraines
Renal calculi
Arthritis
DVT ppx: IV Heparin
Code: DNR/DNI per uploaded advanced directive.
--- NOTE | 2024-08-21 15:30 | PTCARENOTE ---
Rec'd Pt 1330, A,A+Ox3, c/o some pain at ross catheter insertion site upon movement. Stat lock is in place and catheter doesn't appear to be pulling, no skin irritation noted. R femoral dsg D+I. R brachial dsg D+I. Weak DP pulses, Good R radial
pulse. Milrinone drip infusing at 0.25 mcg/kg/min. BP 104/76. HR 80's. 95% on RA.
--- NOTE | 2024-08-21 15:53 | CM ---
Chart reviewed. Patient is independent of ADLS, lives with his in a 2 [address], 2 [facility]IT[facility], 0 DME. Plan is for the patient to return home. CM to follow
[2024-08-21] MEDS: LASIX 80 MG IV (16:23)
--- NOTE | 2024-08-21 16:50 | W.CON.NEPH ---
Consultation
-
Date/Time Consultation Requested: August 21, 2024 at 1 PM
Date/Time Consultation Performed: August 21, 2024 at 4:30 PM
Requesting Provider: Dr. Vasquez
Performing Provider: Dr Yimi Hernandez
Reason for Consultation: acute on chronic kidney disease in setting of heart failure
Medical History
-
Chief Complaint: shortness of breath
History of Present Illness:
74 y/o M, hx of Obesity, HTN, HLD, T2DM, Afib on eliquis, Hx of LBBB, hx of BioAVR and 1 vessel CABG, JAMES not compliance on CPAP, s/p ICD presents to slab polisher for elective RHC. . He was previously on Lasix, later trialed on Bumex (developed rash)
and now is on Torsemide. Today's RHC showed cardiac index of 1.0 and elevated wedge pressures of 37
Renal consult for acute on chronic kidney disease and diuretic management in setting of heart failure and cardiorenal syndrome
the patient is somnolent no active short of breath currently and no chest pain.
He has a Valdovinos catheter is on milrinone and getting Lasix 80 mg twice a day intravenously
Past Medical History
Obesity, HTN, HLD, T2DM, Afib on Rliquis, Hx of LBBB, hx of BioAVR and 1 vessel CABG, JAMES not compliance on CPAP, s/p ICD
Social History
current non-smoker
Tobacco: Non-Smoker
Family History
Family History: Not Pertinent
Allergies / Home Medications
Allergy/AdvReac Type Severity Reaction Status Date / Time
bumetanide [From Bumex] Allergy Severe Rash Verified 08/21/24 07:08
�Medication �Instructions �Recorded �Confirmed �Type
metoprolol succinate 25 mg 25 mg PO DAILY Blood pressure 10/01/21 08/21/24 History
tablet,extended release 24 hr
amiodarone 200 mg tablet 200 mg PO DAILY Arrhythmia 07/23/23 08/21/24 History
apixaban 5 mg tablet (Eliquis) 5 mg PO BID blood thinner 07/23/23 08/21/24 History
aspirin 81 mg tablet,delayed 81 mg PO DAILY blood thinner 07/23/23 08/21/24 History
release
empagliflozin 10 mg tablet 10 mg PO DAILY Diabetes 07/23/23 08/21/24 History
(Jardiance)
spironolactone 25 mg tablet 12.5 mg (1/2 x 25 mg) PO DAILY 30 03/28/24 08/21/24 Rx
days #15 tabs
sertraline 50 mg tablet (Zoloft) 50 mg PO HS Depression 06/29/24 08/21/24 History
latanoprost 0.005 % eye drops 1 drp RIGHT EYE HS Eye Condition 07/13/24 08/21/24 History
polyethylene glycol 3350 17 gram 17 g PO DAILYPRN PRN constipation 07/29/24 08/21/24 History
oral powder packet (Miralax)
prednisone 20 mg tablet 40 mg PO DAILY 08/21/24 08/21/24 History
rosuvastatin 10 mg tablet 10 mg PO 1800 08/21/24 08/21/24 History
Review of Systems
-
increased weight with abdominal distention no chest pain
All other systems: Negative unless noted
Physical Exam
Vital Signs
Vital Signs
Temp Pulse Resp BP Pulse Ox
98.2 F 80 20 92/62 97
08/21/24 15:25 08/21/24 13:10 08/21/24 15:25 08/21/24 13:10 08/21/24 15:25
Physical Exam
General no acute distress
HEENT no cephalic atraumatic extraocular muscle intact no scleral icterus no JVD neck supple
lungs fine crackles
heart regular S1-S2 positive
abdomen soft nontender positive bowel sounds
extremities edema bilateral
Neurologically nonfocal alert and oriented x 3
Skin no lesions no abrasions no petechiae
Psych normal affect no bizarre behavior
Data Reviewed
-
Labs: Labs Reviewed by me
Assessment/Plan
-
74 y/o M, hx of Obesity, HTN, HLD, T2DM, Afib on eliquis, Hx of LBBB, hx of BioAVR and 1 vessel CABG, JAMES not compliance on CPAP, s/p ICD presents to slab polisher for elective RHC. . He was previously on Lasix, later trialed on Bumex (developed rash)
and now is on Torsemide. Today's RHC showed cardiac index of 1.0 and elevated wedge pressures of 37
renal consult for acute on chronic kidney disease with a baseline creatinine 1.6-1.8 with admitting creatinine 2.2.
Impression:
Acute on chronic kidney disease secondary to cardiorenal
acute CHF status post right heart cath cardiac output severely diminished with ejection fraction 15 to 20%
atrial fibrillation rate controlled
CAD/CHF/ICD
plan:
Agree with inotropic support
Lasix 80 mg twice daily will monitor daily weights and urine output with Valdovinos catheter
May need to consider thiazide diuretic if minimal response
sodium restriction 2 g
SGLT2 inhibitor on hold.
abdominal ultrasound evaluate ascites
creatinine on admission 2.2 up from baseline as stated above
no acute need for dialysis and going forward it would be difficult to pursue dialysis if indicated in the setting of severe cardiomyopathy
[2024-08-21 17:30] LABS: Hemoglobin 15.6 g/dL (13.0-18.0); Mean Corp Hgb Conc. 33.2 g/dL (33.0-37.0); Mean Corpuscular Hgb 29.6 pg (27.0-31.0); Mean Corpuscular Volume 89.2 fL (80.0-94.0); Mean Platelet Volume 11.3 fL (7.4-10.4); Platelet Count 140 10^3/uL (130-400); Red Blood Cell Count 5.27 10^6/uL (4.70-6.10); Red Cell Dist. Width 15.5 % (11.5-14.5); White Blood Cell Count 10.3 10^3/uL (4.8-10.8)
[2024-08-21 17:37] LABS: APTT 32.6 Sec (23.4-35.0)
[2024-08-21 17:42] LABS: Venous Blood Gas B.E. 3.3 mmol/L (-4 to +4); Venous Blood Gas HCO3 31.7 mmol/L (22-27); Venous Blood Gas O2 Sat % 57.9 %; Venous Blood Gas O2 Therapy 97% RA; Venous Blood Gas pCO2 63 mmHg (35-48); Venous Blood Gas pH 7.31 (7.32-7.43); Venous Blood Gas pO2 35 mmHg (30-50)
[2024-08-21 17:48] LABS: NT-proBNP 17500 pg/ml
[2024-08-21] MEDS: HEPARIN 25000 UNITS/250 ML IV (17:48)
[2024-08-21 17:50] LABS: ALT (SGPT) 114 U/L (0-50); AST (SGOT) 87 U/L (17-59); Alkaline Phosphatase 82 U/L (38-126); Blood Urea Nitrogen 110 mg/dl (9-20); Calcium 8.8 mg/dl (8.4-10.2); Carbon Dioxide 33 mmol/L (22-30); Chloride 88 mmol/L (98-107); Estimated Creatinine Clearance 32 ml/min; Glucose 270 mg/dl (70-99); Potassium 3.7 mmol/L (3.5-5.1); Sodium 132 mmol/L (135-145); Total Bilirubin 1.3 mg/dl (0.2-1.3); Total Protein 6.3 g/dl (6.3-8.2); eGFR 23.68
[2024-08-21] MEDS: CRESTOR 10 MG PO (18:53)
[2024-08-21] MEDS: NOVOLOG FLEXPEN-LOW RESISTANCE 3 UNITS SC (18:54)
--- NOTE | 2024-08-21 19:37 | PTCARENOTE ---
Dr Nuñez aware of lab results, BiPAP 07/13 ordered and started. Bp 78/62, 87/61. Pt somnolent but awakens easily to voice. Ursula Fox came to see Pt. Plan is to transfer to ICU
--- NOTE | 2024-08-21 20:14 | W.PN.UPDATE ---
Update Note
Progress Note Update
Reviewed and updated patient status with his Cynthia about need for closer blood pressure monitoring with A line as well as ongoing diuresis. We also discussed his code status and she prefers to change him to a full code. Orders updated in the
computer chart.
--- NOTE | 2024-08-21 20:18 | PTCARENOTE ---
Received patient at change of shift. Patient resting in bed. 96% on BiPap 07/13. BP 82/57, A/V Paced 80s. Right brachial site clean, dry and intact. Normal pulse, pink, warm. Right femoral site clean, dry, and intact. Weak pulse, pink, warm. Bonifacio
with stat lock. Patient being transferred to ICU level care.
[2024-08-21 20:38] LABS: B.E. 4.4 mmol/L; HCO3 29.2 mmol/L (21-28); O2 Saturation % 96.6 % (94-98); PCO2 43 mmHg (35-48); PO2 79 mmHg (83-108); pH 7.44 (7.35-7.45)
--- NOTE | 2024-08-21 21:40 | PTCARENOTE ---
pt tx to ICU from IVU, aaox3, VPaced HR 80, RA IV WNL, LA new IV inserted- heparin/milrinone gtts infusing as documented. Valdovinos cath in place. pt on continuous Bipap 07/13 Sat 94%. CHG cloths. family arrived to bedside. OPERATIONS SUPERVISOR [employer] CLEAN[employer] to place art line.
[2024-08-21] MEDS: APRESOLINE PO (22:18)
[2024-08-21] MEDS: XALATAN OPHTHALMIC SOLUTION 1 DROP RIGHT EYE (22:30)
[2024-08-21] MEDS: ZOLOFT PO (22:30)
--- NOTE | 2024-08-21 22:32 | W.PN.UPDATE ---
Update Note
Progress Note Update
Procedure Note: Arterial Line�
� Right Wrist Arrow 20 (10/10)�
Diagnosis:Cardiogenic shock��
IV Line Comments: Uneventful Procedure�
Ovi's test completed pre-procedure: Yes�
A-Line Comments: Sterile technique as per standard protocol, Ultrasound guided insertion�
Functioning A-line in situ: Yes�
A-line Insertion Start Time:�2214�
A-line in at:��2220
--- NOTE | 2024-08-21 22:40 | PTCARENOTE ---
Jaspal jonas AL inserted by Leatha, SBP 115-120 on chino. Cuff BP 70-80s. SALES SOLUTIONS ASSOCIATE aware. plan to trend BP based on chino.
[2024-08-21] MEDS: NOVOLOG FLEXPEN-MODERATE RESISTANCE 300 UNITS SC (23:41)
[2024-08-21 23:49] LABS: Glucose - Point of Care 186 mg/dl (70-99)
[2024-08-22] VITALS: BP 100/72
[2024-08-22 00:01] LABS: APTT 67.1 Sec (23.4-35.0)
[2024-08-22 02:00] VITALS: BP 101/74
[2024-08-22 02:56] VITALS: PULSE 2; PULSE 84
[2024-08-22 04:00] VITALS: BP 100/71
[2024-08-22 05:03] LABS: B.E. 5.7 mmol/L; HCO3 30.6 mmol/L (21-28); Ionized Calcium 1.13 mMOL/L (1.15-1.33); O2 Saturation % 99.1 % (94-98); PCO2 44 mmHg (35-48); PO2 126 mmHg (83-108); Potassium 3.3 mMOL/L (3.5-5.1); Sodium 134 mMOL/L (136-145); pH 7.45 (7.35-7.45)
--- NOTE | 2024-08-22 05:15 | PTCARENOTE ---
pt removing Bipap multiple times; abg improved on am labs, pt switched to 2LNC, BDoughertyNP aware.
[2024-08-22 05:18] VITALS: BMI 36.3
[2024-08-22 05:26] LABS: APTT 85.3 Sec (23.4-35.0)
[2024-08-22 05:39] LABS: ALT (SGPT) 95 U/L (0-50); AST (SGOT) 66 U/L (17-59); Albumin 3.6 g/dl (3.5-5.0); Alkaline Phosphatase 82 U/L (38-126); Blood Urea Nitrogen 101 mg/dl (9-20); Calcium 8.5 mg/dl (8.4-10.2); Carbon Dioxide 30 mmol/L (22-30); Chloride 95 mmol/L (98-107); Estimated Creatinine Clearance 41 ml/min; Glucose 180 mg/dl (70-99); Magnesium 2.7 mg/dl (1.6-2.3); Potassium 3.2 mmol/L (3.5-5.1); Sodium 136 mmol/L (135-145); Total Bilirubin 1.4 mg/dl (0.2-1.3); Total Protein 5.9 g/dl (6.3-8.2); eGFR 32.02
[2024-08-22 06:06] LABS: % Immature Granulocytes 0.5 % (0-0.5); % Lymphocytes 5.2 % (20.5-51.1); % Monocytes 10.1 % (1.7-9.3); % Neutrophils 83.2 % (42.2-75.2); Absolute Eosinophils 0.1 10^3/uL (0-0.7); Absolute Immature Granulocytes 0.1 10^3/uL (0-0.05); Absolute Lymphocytes 0.5 10^3/uL (1.2-3.4); Absolute Neutrophils 8.2 10^3/uL (1.4-6.5); Hematocrit 42.9 % (39.0-52.0); Hemoglobin 14.1 g/dL (13.0-18.0); Mean Corp Hgb Conc. 32.9 g/dL (33.0-37.0); Mean Corpuscular Hgb 29.1 pg (27.0-31.0); Mean Corpuscular Volume 88.6 fL (80.0-94.0); Mean Platelet Volume 11.4 fL (7.4-10.4); Nucleated Red Blood Cells % 0 % (-); Platelet Count 125 10^3/uL (130-400); Red Blood Cell Count 4.84 10^6/uL (4.70-6.10); Red Cell Dist. Width 15.4 % (11.5-14.5); White Blood Cell Count 9.8 10^3/uL (4.8-10.8)
[2024-08-22] MEDS: NOVOLOG FLEXPEN-MODERATE RESISTANCE 1 UNITS SC ×3 (06:16→18:39)
--- NOTE | 2024-08-22 07:42 | CON.INTV ---
Consultation
Consultation Request
Date/Time Consultation Requested: 08/22/2024-7:30 AM
Date/Time Consultation Performed: 08/22/2024-7:30 AM
Requesting Provider: Hospitalist
Performing Provider: Dr. Mars
Reason for Consultation: CHF/critical care management
Medical History
-
Chief Complaint: Shortness of breath
History of Present Illness:
74-year-old obese occasional cigar smoking male with a history of hypertension, hyperlipidemia, CAD/CABG, diabetes, atrial fibrillation and JAMES/CPAP intolerant recently had AICD placed with subsequent history of difficult to control CHF underwent
elective right heart catheterization noted to have severely elevated filling pressures with low cardiac index necessitating ICU/pulmonary artery catheter/inotropes-scorekeeper consulted for CHF/critical care management 08/22/2024. Patient states
that he has had shortness of breath for weeks since his ICD placement. He continues to have total body fluid overload and increased lower extremity swelling. Denies any chest pain, chest congestion, productive cough, pleurisy, abdominal pain or
focal weakness.
Past Medical History
Past Medical History: None (Hypertension. Hyperlipidemia. Diabetes. CAD/CABG/AVR. ICD June 2025. JAMES/CPAP intolerant. Atrial fibrillation on Eliquis.)
Social History
Tobacco: Smoker ( Occasional cigar)
Alcohol: Daily
Drug: None
Personal:
Living: With Family
Occupational Exposures: No known asbestos exposure
Environmental Exposures: No known tuberculosis exposure
Family History
Family History: Reviewed & Not Pertinent
Allergies / Home Medications
Allergies
Allergy/AdvReac Type Severity Reaction Status Date / Time
bumetanide [From Bumex] Allergy Rash Verified 08/21/24 23:20
Home Medications
�Medication �Instructions �Recorded �Confirmed �Last Taken �Type
metoprolol succinate 25 mg 25 mg PO DAILY Blood pressure 10/01/21 08/21/24 08/20/24 08:00 History
tablet,extended release 24 hr
amiodarone 200 mg tablet 200 mg PO DAILY Arrhythmia 07/23/23 08/21/24 08/20/24 08:00 History
apixaban 5 mg tablet (Eliquis) 5 mg PO BID blood thinner 07/23/23 08/21/24 08/18/24 18:00 History
aspirin 81 mg tablet,delayed 81 mg PO DAILY blood thinner 07/23/23 08/21/24 08/20/24 08:00 History
release
empagliflozin 10 mg tablet 10 mg PO DAILY Diabetes 07/23/23 08/21/24 08/10/24 14:00 History
(Jardiance)
spironolactone 25 mg tablet 12.5 mg (1/2 x 25 mg) PO DAILY 30 03/28/24 08/21/24 08/10/24 08:00 Rx
days #15 tabs
sertraline 50 mg tablet (Zoloft) 50 mg PO HS Depression 06/29/24 08/21/24 08/20/24 20:00 History
latanoprost 0.005 % eye drops 1 drp RIGHT EYE HS Eye Condition 07/13/24 08/21/24 08/20/24 20:00 History
polyethylene glycol 3350 17 gram 17 g PO DAILYPRN PRN constipation 07/29/24 08/21/24 08/19/24 08:00 History
oral powder packet (Miralax)
prednisone 20 mg tablet 40 mg PO DAILY 08/21/24 08/21/24 08/20/24 08:00 History
rosuvastatin 10 mg tablet 10 mg PO 1800 08/21/24 08/21/24 08/20/24 18:00 History
Review of Systems
-
Unable to Obtain full review of systems at this time due to: Other (Per HPI)
Vitals / Labs / Diagnostic Testing
Vital Signs
Temp Pulse Resp BP Pulse Ox
97.5 F 81 22 100/71 97
08/22/24 04:06 08/22/24 06:15 08/22/24 06:15 08/22/24 04:00 08/22/24 06:15
Lab Data
08/22/24 04:45
08/22/24 04:45
Laboratory Results
08/21/24 08/21/24 08/21/24
17:10 20:31 23:37
APTT 32.6 67.1 H
pH 7.44
pCO2 43
pO2 79 L
HCO3 29.2 H
O2 Delivery Level
08/22/24
04:45
APTT 85.3 H
pH 7.45
pCO2 44
pO2 126 H
HCO3 30.6 H
O2 Delivery Level
Diagnostic Testing:
Physical Exam
-
Exam:
Well-nourished and well-developed in no apparent distress
HEENT-atraumatic, normocephalic
Neck-supple, no JVD, no bruit
Heart-regular rate and rhythm-no murmurs, rubs or gallops
Chest-clear to auscultation, diminished breath sounds at the bases, rare crackles
Back-no tenderness
Abdomen-soft, nontender, nondistended, no hepatosplenomegaly
Extremities-no cyanosis, clubbing, +2 edema
Integument-intact, no rashes, lesions or ecchymosis
Neurology-alert and oriented, nonfocal motor and sensory exam
Assessment
-
74-year-old obese occasional cigar smoking male with a history of hypertension, hyperlipidemia, CAD/CABG, diabetes, atrial fibrillation and JAMES/CPAP intolerant recently had AICD placed with subsequent history of difficult to control CHF underwent
elective right heart catheterization noted to have severely elevated filling pressures with low cardiac index necessitating ICU/pulmonary artery catheter/inotropes-scorekeeper consulted for CHF/critical care management 08/22/2024.
CHF-acute on top of chronic with reduced EF
Cardiomyopathy status post recent biventricular ICD 07/07/2024
JAI
Hyperglycemia
Hypocalcemia
Elevated LFTs
Pleural effusion
Conditions present prior to admission:
Hypertension.
Hyperlipidemia.
Diabetes.
CAD/CABG/AVR.
Cardiomyopathy-EF 20%
ICD June 2025.
JAMES/CPAP intolerant.
Atrial fibrillation on Eliquis.
Abnormal CT abdomen-suggestive of cirrhosis 07/2024
Varicocele repair. Lumbar discectomy 2021. Repair ascending aortic aneurysm/AVR-bovine.
Plan
Patient critically ill and admitted to ICU to obtain pulmonary artery catheter, inotropes, diuresis-extensive cardiac and pulmonary workup summarized below
Supplemental oxygen as needed
Incentive spirometry
CPAP or BiPAP at night as tolerated-in the past has been intolerant
Aspiration precautions
Nebulizers if needed-currently not bronchospastic
Cardiology following-correspondence reviewed
Right heart catheterization results reviewed-significantly elevated filling pressures with low cardiac index-[facility] 08/21/24: RA 30, PA 63/38, PCWP 35-42, CO/CI 2.3/0.96, SVR 1880
Pulmonary artery catheter placement
Diuresis as tolerated
Inotropes will be initiated
Monitor renal function, electrolytes, intake/output, lower extremity edema and weight
Replace electrolytes as needed
Amiodarone continues
Heparin drip continues-Eliquis on hold
Monitor renal function
Replace electrolytes
Acute cardiorenal state
Nephrology following
Monitor ascites
Abdominal ultrasound summarized below
Monitor liver functions
Consider GI evaluation for questionable cirrhosis
Monitor MSAS
Alcohol withdrawal treatment protocol if indicated
Monitor blood sugar
Insulin supplementation as needed
Last saw Dr. Mars/Gabrielle Macario CNP on 11/29/2023
Reviewed with at the bedside
Critical care statement: A total of 65 minutes of critical care time was provided for this patient today. This includes management of unstable vital signs, evaluation of the patient at bedside, reviewing the patient's pertinent medical records
including radiographs, microbiology, laboratory evaluations, and discussion with primary team, consultants, pharmacy, nutrition, physical therapy, case management, charge nurse, critical care nursing, and respiratory therapy.
Diagnostic data:
CXR 10/01/21: cardiomegaly with slightly prominent pulmonary vascularity which could represent mild CHF vs atypical acute pulmonary edema. possible left basilar patchy opacity such as pna������
��
Chest x-ray 12/10/21-NAD
Chest x-ray 08/22/2024-no acute disease in the chest, cardiomegaly, waterbed configuration
CT Chest 09/29/21: no PE. small bilateral pleural effusions. mild peripheral ground glass densities in lower lung zones b/l suggesting mild residual pna.��
CT chest 07/11/23-no pulmonary embolism, minimal right pleural effusion, minimal pleural thickening left hemithorrax, no adenopathy or nodules.
CT chest 07/31/2024-small right pleural effusion, moderate ascites, liver contour appears to be subtly nodular suggestive of cirrhosis, basilar atelectasis
Abdominal ultrasound 08/22/2024-moderate ascites, slightly progressed, moderate right pleural effusion
US BLE 10/01/21: negative for DVT������������������
ECHO 08/11/21: ischemic heart disease with mildly reduced systolic function. LV EF 40-45%. moderate LVH. RV base mildly enlarged. Tricuspid and mitral regurgitation. s/p bioprosthetic aortic valve prosthesis.�������
Nuclear stress test 06/12/21-EF 25%, moderate risk study�������
Echocardiogram 06/28/23-EF 20-25%, stage II diastolic dysfunction, bioprosthetic aortic valve, PA systolic 45, rhythm atrial fibrillation�������
Stress test 07/13/23-revealed a moderate in size, medium severity fixed basal to distal inferior and inferoseptal perfusion defect, EF 21%, overall high risk study.�������
Echo 02/16/2024: EF 25%. Global hypokinesis with basal inferior and basal inferolateral akinesis. Stage III diastolic dysfunction. Moderate to severe MR. Severely dilated left atrium. #23 bovine aortic valve with peak/mean gradient 46/29 mmHg.
Mild AI. Mild TR. PAP 35 mmHg
Echo 07/14/2024: EF 25-30% with global hypo, enlarged RV, ICD in place well seated #23 bovine AVR with peak/mean grad of 27/19 mmHg respectively, trace pericardial effusion.
Echo 08/21/24: EF 15-20%, AVR with mean gr 30, PA 30
Cardioversion 07/23/23-successful cardioversion from atrial fibrillation to sinus rhythm.
Cardiac catheterization 03/28/2024: LM: LI. LAD: Moderate to severe diffuse atherosclerotic plaque. D2 has 30% stenosis. Left circumflex: Mid 60 to 70% stenosis. RCA: LI.
HEMODYNAMICS : (mmHg) RA (m) : 22; RV (s/d,m) : 72/14, 24; PA (s/d, m) : 72/34, 50; PCWP (m) : 34, V waves to 53 mmHg; PA saturation: 62.5% on room air; AO saturation: 93.6% on room air;
Cardiac Output : 5.58 L/min; Cardiac Index : 2.23 L/min/m-2; Systemic vascular resistance: 889 dsc^(-5); Pulmonary vascular resistance: 2.87 willams unit; AO (s/d) : 102/61; LV (s/d) : 131/21; LVEDP : 30
Estimated invasive transaortic gradient of 27 mmHg, aortic valve area 1.3 cm�
Significantly elevated right and left-sided filling pressures with severe pulmonary hypertension and normal cardiac output. Borderline low systemic vascular resistance.
PFT 12/19/21-FEV1 2.55-72%, FVC 3.77 L-70%, no significant response, TLC 80%, 90%, DLCO 64%. Mild obstruction and moderate reduction in diffusing capacity.�������
Spirometry 07/29/23-FEV1 1.18-34%, FVC 1.5-39%, no significant BD response. Severe obstruction.
Data Reviewed
-
PFT: Report reviewed by me
EKG: Tracing personally visualized and interpreted and Report reviewed by me
Radiology: Report reviewed by me
CT Scan: Image personally visualized and interpreted and Report reviewed by me
Ultrasound: Report reviewed by me
Medical Tests (Nuc Med, Echo etc): Report reviewed by me
Labs: Labs reviewed by me
Old Records: Reviewed
Critical Care Time (in minutes): 65
[2024-08-22] MEDS: ASPIR LOW (ENTERIC COATED) 81 MG PO (07:46)
[2024-08-22] MEDS: APRESOLINE 10 MG PO (07:47)
[2024-08-22] MEDS: PACERONE 200 MG PO (07:47)
[2024-08-22] MEDS: DELTASONE 40 MG PO (07:47)
[2024-08-22] MEDS: LASIX 80 MG IV ×2 (07:47→18:32)
[2024-08-22 07:48] LABS: Glucose - Point of Care 167 mg/dl (70-99)
--- NOTE | 2024-08-22 08:00 | PTCARENOTE ---
Received patient from house superintendent. Patient is AAOx3, pleasant, he has been frustrated about dry mouth but Dr. Gabriel at bedside and reviewing plan of care. Awaiting decision from Dr. Nuñez to place [place] benja catheter. Will keep NPO until then
but may give swabs. Patient is 4L on nasal cannula. slight crackles auscultated in bases. Patient is VPaced on monitor with bundle branch. Right radial [place] zero'ed to atmospheric pressure and leveled at phlebostatic axis. Patient is on
milrinone gtt at 0.125. Also on heparin gtt at 1100 units/hr. He has edema throughout, lower extremities have +2 edema. Patient is currently NPO, awaiting decision on sanitation laborer. Patient has large obese round abdomen. Valdovinos for urinary output,
clear yellow. will review orders.
[2024-08-22] MEDS: KCL 40 MEQ PO ×2 (09:09→14:50)
--- NOTE | 2024-08-22 09:41 | W.PN.HOSP.TC ---
Today's Communication/Plan
-
continue Milrinone, monitor BP with Hudson
continue IV Lasix
possible S-G catheter placement
continue BiPAP nightly
Assessment / Plan
Assessment / Plan
Assessment:
Acute on chronic heart failure with reduced ejection fraction, EF 25-30%
Cardiomyopathy, mixed without improved ejection fraction despite optimal medical therapy
s/p Medtronic biventricular ICD 07/07/2024
- BNP 17,500
- s/p RHC with Severely elevated right and left-sided filling pressures with severe pulmonary hypertension and severely reduced cardiac output (cardiac index .96) in the setting of elevated systemic vascular resistance. Wedge 35.
- continue Milrinone for cardiogenic shock, monitor BP's with invasive A-line
- continue IV Lasix - requires intensive monitoring of weights, lytes, I/Os
- sodium/fluid restriction
- possible Ceres-Pradeep cath placement per interventional cards
- may need additional support in form of IABP or Impella
- hold GDMT therapy for now; Aldactone/BB held. on Hydralazine
- DCA cards following
JAI on CKD stage 3b, acute cardiorenal state
- Nephrology following
JAMES not using CPAP at home
- continue nocturnal BIPAP
- Pulm consulted
Hypokalemia, replete as needed
Abdominal distention
- check US to evaluate for ascites burden
LBBB
Hx NSVT
- s/p Medtronic biventricular ICD 07/07/2024
History of atrial fibrillation s/p cv 07/23/2023
- continue Amiodarone
- IV Heparin drip requires intensive monitoring of PTTs; holding Eliquis in case additional support needed for advanced CHF
History of COVID September 2021
HTN
- Aldactone/BB held. on Hydralazine
HLD
- continue statin
DM2
- hold Jardiance
- continue SSI
- A1c: 7.2% recently
CAD s/p 1 vessel CABG 2009
- continue ASA/Statin
s/p bioAVR 2009
H/o Cough syncope
Radiculopathy
Depression - on Zoloft
Ocular migraines
Renal calculi
Arthritis
DVT ppx: IV Heparin
Code: Full code after re-discussed with daughter
Total Critical Care Time 44 minutes. I was immediately available to the patient and staff. I personally examined, reviewed labs, diagnostic images/reports, interpretations, treatment plans, discussed patient care with other providers and family
or caregivers (if patient is unable to make decisions), entered orders as appropriate and documented the medical record.
Anticipated Discharge: > 48 hours
Subjective/Interval History
-
Date of Service: August 22, 2024
transferred last evening to ICU for hypotension, Ada needs and for BiPAP for respiratory acidosis in setting of sleep apnea
remains on IV Lasix
tolerated BiPAP until 5 AM and ABG improved
denies any complaints currently
Objective Data
-
Labs:
Laboratory Results
08/21/24 08/22/24 08/22/24
23:37 04:45 11:00
WBC 9.8
Hgb 14.1
Hct 42.9
Plt Count 125 L
APTT 67.1 H 85.3 H Pending
HCO3 30.6 H
Sodium 136
Potassium 3.2 L
Chloride 95 L
Carbon Dioxide 30
BUN 101 H*
Creatinine 2.1 H
Glucose 180 H
Calcium 8.5
Total Bilirubin 1.4 H
AST 66 H
ALT 95 H
Alkaline Phosphatase 82
08/22/24
18:00
WBC
Hgb
Hct
Plt Count
APTT
HCO3
Sodium Pending
Potassium Pending
Chloride Pending
Carbon Dioxide Pending
BUN Pending
Creatinine Pending
Glucose Pending
Calcium Pending
Total Bilirubin
AST
ALT
Alkaline Phosphatase
Vital Signs:
Vital Signs
Temp Pulse Resp BP Pulse Ox
97.5 F 84 16 106/60 97
08/22/24 07:59 08/22/24 08:16 08/22/24 08:16 08/22/24 07:47 08/22/24 08:16
I&O
08/21/24 08/22/24 08/23/24
06:59 06:59 06:59
Intake Total 617.4 / 633.0 46.8 / 46.8
Output Total 3075 / 3150 290 / 290
Balance -2457.6 / -2517.0 -243.2 / -243.2
Physical Exam
-
General: No Apparent Distress
HEENT: Normocephalic and Atraumatic
Respiratory: Crackles; Negative Wheezes
Cardiac: Regular Rhythm and S1/S2
GI: Soft
Musculoskeletal: Edema, Right Lower Extrem and Edema, Left Lower Extrem
Neuro: AO x 3
Psych: Calm
Data Reviewed
-
Critical Care Time (in minutes): 44
Labs: Labs Reviewed by me
--- NOTE | 2024-08-22 09:48 | W.PN.CARDCBS ---
Today's Communication / Plan
-
For repeat right heart cath today with Keatchie placement for further management of medication.
Continue milrinone and hydralazine as blood pressure tolerates
Continue IV Lasix.
Remains on IV heparin with amiodarone. Check EKG
Creatinine improved to 2.1
Impression / Plan
-
PCP: Dr. Chintan Gonzalez
Cardiology: Dr. Gabriel
Impression
Acute on chronic HFrEF with cardiogenic shock
JAI
Cardiomyopathy, mixed without improved ejection fraction despite optimal medical therapy
s/p Medtronic biventricular ICD 07/07/2024
LBBB
CAD
s/p 1 vessel CABG 2009s/p bio AVR 2009
Paroxysmal atrial fibrillation
s/p cv 07/23/2023 Chronic AC w/ Eliquis
h/o NSVT
h/o COVID September 2021
HTN
HLD
DM2
JAMES not using CPAP
h/o cough syncope
Radiculopathy
Depression
Ocular migraines
Renal calculi
Arthritis
Lexiscan sestamibi stress test 07/13/2023: Moderate sized medium in severity fixed basal to distal inferior, basal to mid inferoseptal, small mid anterior perfusion defect with no evidence of ischemia. Ejection fraction 21% with severe global
hypokinesis
Cardiac catheterization 03/28/2024: LM: LI. LAD: Moderate to severe diffuse atherosclerotic plaque. D2 has 30% stenosis. Left circumflex: Mid 60 to 70% stenosis. RCA: LI.
HEMODYNAMICS : (mmHg) RA (m) : 22; RV (s/d,m) : 72/14, 24; PA (s/d, m) : 72/34, 50; PCWP (m) : 34, V waves to 53 mmHg; PA saturation: 62.5% on room air; AO saturation: 93.6% on room air;
Cardiac Output : 5.58 L/min; Cardiac Index : 2.23 L/min/m-2; Systemic vascular resistance: 889 dsc^(-5); Pulmonary vascular resistance: 2.87 willams unit; AO (s/d) : 102/61; LV (s/d) : 131/21; LVEDP : 30
Estimated invasive transaortic gradient of 27 mmHg, aortic valve area 1.3 cm�
Significantly elevated right and left-sided filling pressures with severe pulmonary hypertension and normal cardiac output. Borderline low systemic vascular resistance.
RHC 08/21/24: RA 30, PA 63/38, PCWP 35-42, CO/CI 2.3/0.96, SVR 1880
Echo 01/2022: Ejection fraction 40%, global hypokinesis, status post AVR with mean gradient of 10 mmHg
Echo 06/28/2023: Dilated right ventricle with ejection fraction of 20 to 25%, status post bioprosthetic AVR with mean gradient of 15 mmHg, dilated right heart with PA systolic of 45 mmHg
Echo 08/03/2023: Ejection fraction 25 to 30%, hypokinetic septum, apex, inferior, anterior and distal lateral pelletier, mild concentric LVH, moderate MR, status post bioprosthetic AVR with mean gradient of 13 mm hG
Echo 02/16/2024: EF 25%. Global hypokinesis with basal inferior and basal inferolateral akinesis. Stage III diastolic dysfunction. Moderate to severe MR. Severely dilated left atrium. #23 bovine aortic valve with peak/mean gradient 46/29 mmHg.
Mild AI. Mild TR. PAP 35 mmHg
Echo 07/14/2024: EF 25-30% with global hypo, enlarged RV, ICD in place well seated #23 bovine AVR with peak/mean grad of 27/19 mmHg respectively, trace pericardial effusion.
Echo 08/21/24: EF 15-20%, AVR with mean gr 30, PA 30
Plan:
Right heart cath results reviewed as above. Plan will be back to the Patient Support Assistant today for Keatchie-Pradeep catheter placement in IJ or subclavian.
Will review Echo regarding bioprosthetic stenosis (mean 30mmHg) and re-eval MR.
Cont Milrinone gtt and will need to optimize volume status.
Cont hydralazine as BP tolertates
Creat improved to 2.1.
Continue amiodarone and heparin. Check EKG today.
Hold Entresto/LYNDSEY/ARB/Farxiga
Will discuss with EP regarding optimization of device.
He remains in cardiogenic shock in the intensive care
Critical care time 35-minute
Progress Note - Director Of Exhibit Development
Subjective
Date of Service: August 22, 2024
Breathing is improved. He did diurese some. Denies any chest pain or dizziness prior
Objective
Labs:
08/22/24 04:45
Labs
Hgb 14.1 g/dL (13.0-18.0) 08/22/24 04:45
Hct 42.9 % (39.0-52.0) 08/22/24 04:45
Plt Count 125 10^3/uL (130-400) L 08/22/24 04:45
APTT 85.3 Sec (23.4-35.0) H 08/22/24 04:45
Sodium 136 mmol/L (135-145) 08/22/24 04:45
Potassium 3.2 mmol/L (3.5-5.1) L 08/22/24 04:45
BUN 101 mg/dl (9-20) H* 08/22/24 04:45
Creatinine 2.1 mg/dL (0.7-1.3) H 08/22/24 04:45
Glucose 180 mg/dl (70-99) H 08/22/24 04:45
Vital Signs and I&O:
Vital Signs
Temp Pulse Resp BP Pulse Ox
97.5 F 84 16 106/60 97
08/22/24 07:59 08/22/24 08:16 08/22/24 08:16 08/22/24 07:47 08/22/24 08:16
Vital Signs
Temp Pulse Resp BP Pulse Ox
97.5 F 84 16 106/60 97
08/22/24 07:59 08/22/24 08:16 08/22/24 08:16 08/22/24 07:47 08/22/24 08:16
Intake & Output
08/20/24 08/21/24 08/22/24 08/23/24
06:59 06:59 06:59 06:59
Intake Total 617.4 / 633.0 46.8 / 46.8
Output Total 3075 / 3150 290 / 290
Balance -2457.6 / -2517.0 -243.2 / -243.2
Physical Exam
Physical Exam
GEN: No distress, awake, Ox3
HEENT: supple, anicteric, mmm
LUNGS: CTA, no wheezes/rales
CV: Reg, S1/S2, 1/6 syst LSB, S3+
ABD: soft, BS+, NT/ND
EXT: No edema
NEURO: Gross non-focal
SKIN: No rash
--- NOTE | 2024-08-22 10:37 | W.PN.NEPH.PH ---
Today's Communication / Plan
-
Continue diuretics with support
Replete potassium as indicated
Monitor bicarbonate avoid metabolic alkalosis with diuresis
Assessment/Plan
-
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 . He was previously on Lasix, later trialed on Bumex (developed rash)
and now is on Torsemide. Today's RHC showed cardiac index of 1.0 and elevated wedge pressures of 37
renal consult for acute on chronic kidney disease with a baseline creatinine 1.6-1.8 with admitting creatinine 2.2.
Impression:
Acute on chronic kidney disease secondary to cardiorenal
acute CHF status post right heart cath cardiac output severely diminished with ejection fraction 15 to 20%
atrial fibrillation rate controlled
CAD/CHF/ICD
plan:
Agree with inotropic support
Lasix 80 mg twice daily will monitor daily weights and urine output with Valdovinos catheter
May need to consider thiazide diuretic if minimal response
sodium restriction 2 g
SGLT2 inhibitor on hold.
abdominal ultrasound evaluate ascites
creatinine on admission 2.2 >2.1
no acute need for dialysis and going forward it would be difficult to pursue dialysis if indicated in the setting of severe cardiomyopathy and therefore not a candidate
Diuresing well on Lasix and MODESTA tropic medication -3 L. Monitor bicarb and potassium with aggressive diuresis
Repeat right heart cath in [place] placement possibly today per cardiology
Total Time Spent with Patient (in minutes): 31
-
-
Date of Service: August 22, 2024
CC / HPI / ROS
-
Chief Complaint:
Shortness of breath
History of Present Illness:
Acute on chronic kidney disease secondary to CHF improving clinically
Review of Systems:
Improved shortness of breath
-3 L
Labs
-
Labs:
WBC 9.8 10^3/uL (4.8-10.8) 08/22/24 04:45
RBC 4.84 10^6/uL (4.70-6.10) 08/22/24 04:45
Hgb 14.1 g/dL (13.0-18.0) 08/22/24 04:45
Hct 42.9 % (39.0-52.0) 08/22/24 04:45
Plt Count 125 10^3/uL (130-400) L 08/22/24 04:45
eGFR 32.02 08/22/24 04:45
Uon-O-Rihkxgaylzg Pept 61978 pg/ml 08/21/24 17:10
Albumin 3.6 g/dl (3.5-5.0) 08/22/24 04:45
Physical Exam
-
Vital Signs:
Vital Signs
Temp Pulse Resp BP Pulse Ox
97.5 F 85 15 106/60 99
08/22/24 07:59 08/22/24 09:45 08/22/24 09:45 08/22/24 07:47 08/22/24 09:45
Cardiovascular:: Regular rate and rhythm
Respiratory:: Bilateral: Coarse
Lung Excursion:: Normal
Abdomen:: Soft
Bowel Sounds:: Normal
Extremity Edema:: +3: Bilateral: (Anasarca)
Valdovinos Catheter: Yes
[2024-08-22 11:33] LABS: APTT 87.1 Sec (23.4-35.0)
--- NOTE | 2024-08-22 11:50 | PTCARENOTE ---
PTT therapeutic, awaiting call from analytical lab analyst for placement of swan-benja.
[2024-08-22 11:56] LABS: Glucose - Point of Care 186 mg/dl (70-99)
--- NOTE | 2024-08-22 12:25 | CM ---
CM following re: discharge planning.
Reviewed pt's chart, met with pt and pt's spouse at bedside.
Pt is a 74 year old male, admitted with primary dx of Acute on chronic heart failure.
Pt reports he lives with spouse 2SH, 2 steps to enter, has 2 daughters, one lives in [facility]. 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 No DME, VN or SNF history. Pt reports he has been very weak at home and he feels he will need
some help with ambulation.
PT and OT will evaluate the pt to determine a level of care at discharge.
PCP: Chintan Gonzalez
Pharmacy: [facility]
d/c plan: home with most likely VN services. PT and OT to confirm
CM will follow with discharge plan updates as hospitalization progresses
--- NOTE | 2024-08-22 13:56 | W.PN.INTV ---
Documented by User: Steph Victoria MD, Resident 08/22/24 14:25
Today's Communication / Plan
Recommendations
Pulm artery catheter placement
Assessment
-
Impression
Patient is a 74-year-old male,obese non smoker, male with past medical history of hypertension, hyperlipidemia, CAD/CABG, diabetes, atrial fibrillation and JAMES/CPAP intolerant,s/p AICD placed 06/2024 with subsequent history of difficult to control
CHF underwent elective right heart catheterization noted to have severely elevated filling pressures with low cardiac index.
Problem list
CHF-acute on chronic with reduced EF(15-20%)
Cardiomyopathy status post recent biventricular ICD 07/07/2024
Acute on chronic kidney disease secondary to cardiorenal syndrome
Hyperglycemia
Hypocalcemia
Elevated LFTs
Pleural effusion
Other medical conditions
Hypertension.
Hyperlipidemia.
Diabetes.
CAD/CABG/AVR.
Cardiomyopathy-EF 20%
ICD June 2025.
JAMES/CPAP intolerant.
Atrial fibrillation on Eliquis.
Abnormal CT abdomen-suggestive of cirrhosis 07/2024
Varicocele repair. Lumbar discectomy 2021. Repair ascending aortic aneurysm/AVR-bovine.
Plan
RESIN FILTERER
Awake and alert
Respiratory system
Currently on 4 liters of oxygen
continue Incentive spirometry
CPAP or BiPAP at night as tolerated-in the past has been intolerant
Aspiration precautions
Nebulizers if needed-currently not bronchospastic
Cardiovascular system
Cardiology consult appreciated
Right heart catheterization-significantly elevated filling pressures with low cardiac index
Patient scheduled for a pulm artery catheter today
Continue ionotropes and diuresis as able
Monitor renal function, electrolytes, intake/output, lower extremity edema and weight
Replace electrolytes as needed
Renal system
Monitor renal function
Replace electrolytes
Acute cardiorenal state
Nephrology following
GIT
Monitor ascites
Abdominal ultrasound
08/22/2024-moderate ascites, slightly progressed, moderate right pleural effusion
Monitor liver functions
Monitor blood sugar
Insulin supplementation as needed
DVT ppx-Heparin
Full code
Diagnostic data:
Chest x-ray 08/22/2024-no acute disease in the chest, cardiomegaly, waterbed configuration
Echo 02/16/2024: EF 25%. Global hypokinesis with basal inferior and basal inferolateral akinesis. Stage III diastolic dysfunction. Moderate to severe MR. Severely dilated left atrium. #23 bovine aortic valve with peak/mean gradient 46/29 mmHg.
Mild AI. Mild TR. PAP 35 mmHg
Echo 07/14/2024: EF 25-30% with global hypo, enlarged RV, ICD in place well seated #23 bovine AVR with peak/mean grad of 27/19 mmHg respectively, trace pericardial effusion.
Cardiac catheterization 03/28/2024: LM: LI. LAD: Moderate to severe diffuse atherosclerotic plaque. D2 has 30% stenosis. Left circumflex: Mid 60 to 70% stenosis. RCA: LI.
HEMODYNAMICS : (mmHg) RA (m) : 22; RV (s/d,m) : 72/14, 24; PA (s/d, m) : 72/34, 50; PCWP (m) : 34, V waves to 53 mmHg; PA saturation: 62.5% on room air; AO saturation: 93.6% on room air;
Cardiac Output : 5.58 L/min; Cardiac Index : 2.23 L/min/m-2; Systemic vascular resistance: 889 dsc^(-5); Pulmonary vascular resistance: 2.87 willams unit; AO (s/d) : 102/61; LV (s/d) : 131/21; LVEDP : 30
Estimated invasive transaortic gradient of 27 mmHg, aortic valve area 1.3 cm�
Significantly elevated right and left-sided filling pressures with severe pulmonary hypertension and normal cardiac output. Borderline low systemic vascular resistance.
PFT 12/19/21-FEV1 2.55-72%, FVC 3.77 L-70%, no significant response, TLC 80%, 90%, DLCO 64%. Mild obstruction and moderate reduction in diffusing capacity.�������
Spirometry 07/29/23-FEV1 1.18-34%, FVC 1.5-39%, no significant BD response. Severe obstruction.
Subjective Dataa
Subjective Data
Date of Service:
Date of Service: August 22, 2024
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
Subjective:
Patient is short of breath and finds it difficult to complete sentences
Objective Data
Data Reviewed
Vital Signs / I&O / Oxygen:
Vital Signs
Temp Pulse Resp BP Pulse Ox
97.5 F 84 20 106/60 99
08/22/24 11:37 08/22/24 13:30 08/22/24 13:30 08/22/24 07:47 08/22/24 13:30
Intake and Output
08/21/24 08/22/24 08/23/24
06:59 06:59 06:59
Intake Total 617.4 / 633.0 109.2 / 109.2
Output Total 3075 / 3150 765 / 765
Balance -2457.6 / -2517.0 -655.8 / -655.8
SaO2 99
Nasal Cannula flow liters per 4
minute
Physical Exam
General: Other (Well developed, well nourished, Uncomfortable due to shortness of breath)
HEENT: Normocephalic and Anicteric
Cardiovascular: S1-S2 and Regular Rhythm
Respiratory: Crackles
GI: Soft, Distended (mildly) and Normal Bowel Sounds
Neurology: Awake, Oriented and No Motor Deficits
Skin: Warm, Dry and Good Color
Labs/Micro/Reports
Lab Data
08/22/24 04:45
Laboratory Results
08/21/24 08/21/24 08/21/24
17:10 20:31 23:37
APTT 32.6 67.1 H
pH 7.44
pCO2 43
pO2 79 L
HCO3 29.2 H
O2 Delivery Level
08/22/24 08/22/24
04:45 11:04
APTT 85.3 H 87.1 H
pH 7.45
pCO2 44
pO2 126 H
HCO3 30.6 H
O2 Delivery Level

Documented by User: Silverio Mars MD 08/23/24 07:38
Assessment
-
Impression
Patient is a 74-year-old male,obese non smoker, male with past medical history of hypertension, hyperlipidemia, CAD/CABG, diabetes, atrial fibrillation and JAMES/CPAP intolerant,s/p AICD placed 06/2024 with subsequent history of difficult to control
CHF underwent elective right heart catheterization noted to have severely elevated filling pressures with low cardiac index.
Problem list
CHF-acute on chronic with reduced EF(15-20%)
Cardiomyopathy status post recent biventricular ICD 07/07/2024
Acute on chronic kidney disease secondary to cardiorenal syndrome
Hyperglycemia
Hypocalcemia
Elevated LFTs
Pleural effusion
Other medical conditions
Hypertension.
Hyperlipidemia.
Diabetes.
CAD/CABG/AVR.
Cardiomyopathy-EF 20%
ICD June 2025.
JAMES/CPAP intolerant.
Atrial fibrillation on Eliquis.
Abnormal CT abdomen-suggestive of cirrhosis 07/2024
Varicocele repair. Lumbar discectomy 2021. Repair ascending aortic aneurysm/AVR-bovine.
Plan
RESIN FILTERER
Awake and alert
Respiratory system
Currently on 4 liters of oxygen
continue Incentive spirometry
CPAP or BiPAP at night as tolerated-in the past has been intolerant
Aspiration precautions
Nebulizers if needed-currently not bronchospastic
Cardiovascular system
Cardiology consult appreciated
Right heart catheterization-significantly elevated filling pressures with low cardiac index
Patient scheduled for a pulm artery catheter today
Continue ionotropes and diuresis as able
Monitor renal function, electrolytes, intake/output, lower extremity edema and weight
Replace electrolytes as needed
Renal system
Monitor renal function
Replace electrolytes
Acute cardiorenal state
Nephrology following
GIT
Monitor ascites
Abdominal ultrasound
08/22/2024-moderate ascites, slightly progressed, moderate right pleural effusion
Monitor liver functions
Monitor blood sugar
Insulin supplementation as needed
DVT ppx-Heparin
Full code
I reviewed this patients case independently and in conjunction with the resident. I personally examined the patient. Patient's complex medical history, laboratory evaluations, events over the last 24 hours, radiographs, microbiological data were
all personally reviewed.
Agree with documented assessment and plan
Critical care statement: This includes management of unstable vital signs, evaluation of the patient at bedside, reviewing the patient's pertinent medical records including radiographs, microbiology, laboratory evaluations, and discussion with
primary team, consultants, pharmacy, charge nurse, critical care nursing, and respiratory therapy.
Silverio Mars MD, [facility], [facility]
Diagnostic data:
Chest x-ray 08/22/2024-no acute disease in the chest, cardiomegaly, waterbed configuration
Echo 02/16/2024: EF 25%. Global hypokinesis with basal inferior and basal inferolateral akinesis. Stage III diastolic dysfunction. Moderate to severe MR. Severely dilated left atrium. #23 bovine aortic valve with peak/mean gradient 46/29 mmHg.
Mild AI. Mild TR. PAP 35 mmHg
Echo 07/14/2024: EF 25-30% with global hypo, enlarged RV, ICD in place well seated #23 bovine AVR with peak/mean grad of 27/19 mmHg respectively, trace pericardial effusion.
Cardiac catheterization 03/28/2024: LM: LI. LAD: Moderate to severe diffuse atherosclerotic plaque. D2 has 30% stenosis. Left circumflex: Mid 60 to 70% stenosis. RCA: LI.
HEMODYNAMICS : (mmHg) RA (m) : 22; RV (s/d,m) : 72/14, 24; PA (s/d, m) : 72/34, 50; PCWP (m) : 34, V waves to 53 mmHg; PA saturation: 62.5% on room air; AO saturation: 93.6% on room air;
Cardiac Output : 5.58 L/min; Cardiac Index : 2.23 L/min/m-2; Systemic vascular resistance: 889 dsc^(-5); Pulmonary vascular resistance: 2.87 willams unit; AO (s/d) : 102/61; LV (s/d) : 131/21; LVEDP : 30
Estimated invasive transaortic gradient of 27 mmHg, aortic valve area 1.3 cm�
Significantly elevated right and left-sided filling pressures with severe pulmonary hypertension and normal cardiac output. Borderline low systemic vascular resistance.
PFT 12/19/21-FEV1 2.55-72%, FVC 3.77 L-70%, no significant response, TLC 80%, 90%, DLCO 64%. Mild obstruction and moderate reduction in diffusing capacity.�������
Spirometry 07/29/23-FEV1 1.18-34%, FVC 1.5-39%, no significant BD response. Severe obstruction.
[2024-08-22] MEDS: PRIMACOR 20 MG 100 IV (15:00)
[2024-08-22] MEDS: HEPARIN 25000 UNITS/250 ML IV (15:01)
--- NOTE | 2024-08-22 17:39 | ITS.CL.CATH ---
Car Wash Attendant Automatic - Catheterization
Cardiac Catheterization
Procedure Report:
RIGHT HEART CATHETERIZATION
Date of Procedure: August 22, 2024
Referring: Venkata Michael
PRECEDURES:
1. Right heart catheterization with leave in [place]-Pradeep catheter via right internal jugular access
2. Ultrasound-guided access
INDICATION: Leave in [place] for assessment of invasive hemodynamics to help management of cardiogenic shock
Hemodynamics (mmHg):
RA (m) : 15
RV (s/d,m) : 62/5, 18
PA (s/d, m) : 65/28, 44
PCWP (m) : 27
PA saturation: 65.6% on room air
AO saturation: 97% on room air
Heart rate: 87 bpm
Cardiac Output : 4.47 L/min
Cardiac Index : 1.75 L/min/m-2
Systemic vascular resistance: 1432 dsc^(-5)
Pulmonary vascular resistance: 3.81 willams unit
RADIATION SUMMARY: Fluoro Time (min): 1.5, Dose (mGy): 27.58, DAP (Gy.cm2) : 4.18
CONCLUSION:
1. Significantly elevated right and left-sided pressures with reduced cardiac output and mildly elevated systemic vascular resistance. Invasive hemodynamics appear improving on current medical therapy.
Copy to: Venkata Michael
Pat Nuñez MD, [facility], [facility]
[2024-08-22] MEDS: APRESOLINE PO (17:50)
[2024-08-22 18:04] LABS: Glucose - Point of Care 185 mg/dl (70-99)
[2024-08-22] MEDS: APRESOLINE 25 MG PO ×2 (18:32→23:53)
[2024-08-22] MEDS: CRESTOR 10 MG PO (18:32)
[2024-08-22 20:00] LABS: Blood Urea Nitrogen 95 mg/dl (9-20); Calcium 8.6 mg/dl (8.4-10.2); Carbon Dioxide 28 mmol/L (22-30); Chloride 94 mmol/L (98-107); Estimated Creatinine Clearance 41 ml/min; Glucose 245 mg/dl (70-99); Potassium 4.5 mmol/L (3.5-5.1); Sodium 133 mmol/L (135-145); eGFR 32.02
--- NOTE | 2024-08-22 20:54 | PTCARENOTE ---
Pt received start of shift, bedside handoff w/ previous shift RN. HR V-paced on telemetry. AAOX3, neuro intact. A-line and SWAN zeroed. CI 1.9. Milrinone gtt infusing at 0.125mcg/kg/min. Heparin infusing at 1100u/hr. Weak DP pulses. +2 edema b/l LE.
Pt on 3L NC, SpO2 99%. Frequent cough, occasionally productive - moderate yellow sputum. Valdovinos in place, draining clear yellow urine. R groin cath site dressing CDI, site soft - no hematoma. Reinforced plan of care w/ pt, pt states no questions at
this time.
[2024-08-22] MEDS: ZOLOFT 50 MG PO (22:39)
[2024-08-22] MEDS: XALATAN OPHTHALMIC SOLUTION 1 DROP RIGHT EYE (22:39)
[2024-08-22] MEDS: NOVOLOG FLEXPEN 8 UNITS SC (22:53)
[2024-08-22 22:57] LABS: Glucose - Point of Care 280 mg/dl (70-99)
[2024-08-23 00:20] LABS: APTT 59.3 Sec (23.4-35.0)
--- NOTE | 2024-08-23 00:37 | PTCARENOTE ---
Pt heard asking with raised voice for help, entered room to see that pt rolled over in sleep and accidentally pulled out R arm IV. Pt washed up, new gown + linens.
Pt reassessed and CI done. New CI 1.83. Blood sugar on HS check 280 - Spoke w/ [employer] Ana Bowling, 8u insulin coverage ordered and administered. No further change in assessment.
[2024-08-23 04:02] LABS: Mixed Venous O2 Saturation 63.9 %
[2024-08-23 04:23] LABS: Hematocrit 42.7 % (39.0-52.0); Hemoglobin 13.7 g/dL (13.0-18.0); Mean Corp Hgb Conc. 32.1 g/dL (33.0-37.0); Mean Corpuscular Hgb 28.9 pg (27.0-31.0); Mean Corpuscular Volume 90.1 fL (80.0-94.0); Mean Platelet Volume 11.1 fL (7.4-10.4); Platelet Count 124 10^3/uL (130-400); Red Blood Cell Count 4.74 10^6/uL (4.70-6.10); Red Cell Dist. Width 15.7 % (11.5-14.5)
--- NOTE | 2024-08-23 04:36 | PTCARENOTE ---
Pt reassessed. Exp wheeze now auscultated. Pt continues to sat 99% on 2L NC. Pt denies any extra difficulty breathing. New CI 1.32. Valdovinos continues to drain yellow urine. Pt complaining of a 'dry mouth' and continuously requesting more water.
Reinforced fluid restriction education with pt, pt will need further reinforcement. No further change in assessment.
[2024-08-23 04:43] LABS: ALT (SGPT) 92 U/L (0-50); AST (SGOT) 64 U/L (17-59); Albumin 3.8 g/dl (3.5-5.0); Alkaline Phosphatase 69 U/L (38-126); Blood Urea Nitrogen 94 mg/dl (9-20); Calcium 8.3 mg/dl (8.4-10.2); Carbon Dioxide 31 mmol/L (22-30); Chloride 96 mmol/L (98-107); Estimated Creatinine Clearance 39 ml/min; Glucose 198 mg/dl (70-99); Potassium 3.8 mmol/L (3.5-5.1); Sodium 138 mmol/L (135-145); Total Bilirubin 1.3 mg/dl (0.2-1.3); Total Protein 6.1 g/dl (6.3-8.2); eGFR 30.28
[2024-08-23 06:00] VITALS: BMI 36.0
--- NOTE | 2024-08-23 07:34 | W.PN.INTV ---
Today's Communication / Plan
Recommendations
Wean oxygen
Gentle anxiolytics
Diuresis
Replace electrolytes
Inotropes and pulmonary artery catheter monitoring
Assessment
-
74-year-old obese occasional cigar smoking male with a history of hypertension, hyperlipidemia, CAD/CABG, diabetes, atrial fibrillation and JAMES/CPAP intolerant recently had AICD placed with subsequent history of difficult to control CHF underwent
elective right heart catheterization noted to have severely elevated filling pressures with low cardiac index necessitating ICU/pulmonary artery catheter/inotropes-bowling ball weigher and packer consulted for CHF/critical care management 08/22/2024.
CHF-acute on top of chronic with reduced EF
Cardiomyopathy status post recent biventricular ICD 07/07/2024
JAI
Hyperglycemia
Hypocalcemia
Elevated LFTs
Pleural effusion
Conditions present prior to admission:
Hypertension.
Hyperlipidemia.
Diabetes.
CAD/CABG/AVR.
Cardiomyopathy-EF 20%
ICD June 2025.
JAMES/CPAP intolerant.
Atrial fibrillation on Eliquis.
Abnormal CT abdomen-suggestive of cirrhosis 07/2024
Varicocele repair. Lumbar discectomy 2021. Repair ascending aortic aneurysm/AVR-bovine.
Plan
Patient critically ill and admitted to ICU to obtain pulmonary artery catheter, inotropes, diuresis-extensive cardiac and pulmonary workup summarized below
Supplemental oxygen as needed
Incentive spirometry
CPAP or BiPAP at night as tolerated-in the past has been intolerant
Aspiration precautions
Nebulizers if needed-currently not bronchospastic
Cardiology following-correspondence reviewed
Right heart catheterization results reviewed-significantly elevated filling pressures with low cardiac index-[facility] 08/21/24: RA 30, PA 63/38, PCWP 35-42, CO/CI 2.3/0.96, SVR 1880
Pulmonary artery catheter placement-08/22/2024-improvement in cardiac index
Continue to measure pulmonary artery parameters
Continue diuresis as tolerated
Inotropes continue
Monitor renal function, electrolytes, intake/output, lower extremity edema and weight
Replace electrolytes as needed
Amiodarone continues as well
Heparin drip continues-Eliquis on hold
Monitor renal function
Replace electrolytes
Acute cardiorenal state
Nephrology following
Monitor ascites
Abdominal ultrasound summarized below
Monitor liver functions
Consider GI evaluation for questionable cirrhosis
Monitor MSAS
Alcohol withdrawal treatment protocol if indicated
Ativan as needed
Monitor blood sugar
Insulin supplementation as needed
Last saw Dr. Mars/Gabrielle Macario CNP on 11/29/2023
Reviewed with as well as daughter at the bedside 08/22/2024, 08/23/2024
Critical care statement: A total of 42 minutes of critical care time was provided for this patient today. This includes management of unstable vital signs, evaluation of the patient at bedside, reviewing the patient's pertinent medical records
including radiographs, microbiology, laboratory evaluations, and discussion with primary team, consultants, pharmacy, nutrition, physical therapy, case management, charge nurse, critical care nursing, and respiratory therapy.
Diagnostic data:
CXR 10/01/21: cardiomegaly with slightly prominent pulmonary vascularity which could represent mild CHF vs atypical acute pulmonary edema. possible left basilar patchy opacity such as pna������
��
Chest x-ray 12/10/21-NAD
Chest x-ray 08/22/2024-no acute disease in the chest, cardiomegaly, waterbed configuration
CT Chest 09/29/21: no PE. small bilateral pleural effusions. mild peripheral ground glass densities in lower lung zones b/l suggesting mild residual pna.��
CT chest 07/11/23-no pulmonary embolism, minimal right pleural effusion, minimal pleural thickening left hemithorrax, no adenopathy or nodules.
CT chest 07/31/2024-small right pleural effusion, moderate ascites, liver contour appears to be subtly nodular suggestive of cirrhosis, basilar atelectasis
Abdominal ultrasound 08/22/2024-moderate ascites, slightly progressed, moderate right pleural effusion
US BLE 10/01/21: negative for DVT������������������
ECHO 08/11/21: ischemic heart disease with mildly reduced systolic function. LV EF 40-45%. moderate LVH. RV base mildly enlarged. Tricuspid and mitral regurgitation. s/p bioprosthetic aortic valve prosthesis.�������
Nuclear stress test 06/12/21-EF 25%, moderate risk study�������
Echocardiogram 06/28/23-EF 20-25%, stage II diastolic dysfunction, bioprosthetic aortic valve, PA systolic 45, rhythm atrial fibrillation�������
Stress test 07/13/23-revealed a moderate in size, medium severity fixed basal to distal inferior and inferoseptal perfusion defect, EF 21%, overall high risk study.�������
Echo 02/16/2024: EF 25%. Global hypokinesis with basal inferior and basal inferolateral akinesis. Stage III diastolic dysfunction. Moderate to severe MR. Severely dilated left atrium. #23 bovine aortic valve with peak/mean gradient 46/29 mmHg.
Mild AI. Mild TR. PAP 35 mmHg
Echo 07/14/2024: EF 25-30% with global hypo, enlarged RV, ICD in place well seated #23 bovine AVR with peak/mean grad of 27/19 mmHg respectively, trace pericardial effusion.
Echo 08/21/24: EF 15-20%, AVR with mean gr 30, PA 30
Cardioversion 07/23/23-successful cardioversion from atrial fibrillation to sinus rhythm.
Cardiac catheterization 03/28/2024: LM: LI. LAD: Moderate to severe diffuse atherosclerotic plaque. D2 has 30% stenosis. Left circumflex: Mid 60 to 70% stenosis. RCA: LI.
HEMODYNAMICS : (mmHg) RA (m) : 22; RV (s/d,m) : 72/14, 24; PA (s/d, m) : 72/34, 50; PCWP (m) : 34, V waves to 53 mmHg; PA saturation: 62.5% on room air; AO saturation: 93.6% on room air;
Cardiac Output : 5.58 L/min; Cardiac Index : 2.23 L/min/m-2; Systemic vascular resistance: 889 dsc^(-5); Pulmonary vascular resistance: 2.87 willams unit; AO (s/d) : 102/61; LV (s/d) : 131/21; LVEDP : 30
Estimated invasive transaortic gradient of 27 mmHg, aortic valve area 1.3 cm�
Significantly elevated right and left-sided filling pressures with severe pulmonary hypertension and normal cardiac output. Borderline low systemic vascular resistance.
PFT 12/19/21-FEV1 2.55-72%, FVC 3.77 L-70%, no significant response, TLC 80%, 90%, DLCO 64%. Mild obstruction and moderate reduction in diffusing capacity.�������
Spirometry 07/29/23-FEV1 1.18-34%, FVC 1.5-39%, no significant BD response. Severe obstruction.
Subjective Dataa
Subjective Data
Date of Service:
Date of Service: August 23, 2024
Chief Complaint: Cotton Jammer Follow Up and Pulmonary Follow Up
Subjective:
A bit antsy and anxious, no complaints of worsening shortness of breath, no chest pain, abdominal pain and persistent lower extremity swelling
Review of Systems
General: Other (Per HPI)
Objective Data
Data Reviewed
Vital Signs / I&O / Oxygen:
Vital Signs
Temp Pulse Resp BP Pulse Ox
96.8 F L 84 16 99/51 98
08/23/24 07:21 08/23/24 06:00 08/23/24 06:00 08/22/24 23:53 08/23/24 06:00
Intake and Output
08/22/24 08/23/24 08/24/24
06:59 06:59 06:59
Intake Total 617.4 / 633.0 1585.2 / 1585.2
Output Total 3075 / 3150 1760 / 1760
Balance -2457.6 / -2517.0 -174.8 / -174.8
SaO2 98
Nasal Cannula flow liters per 3
minute
Physical Exam
General: Respiratory Distress (n), Comfortable and Other (Well developed, well nourished, Uncomfortable due to shortness of breath)
HEENT: Normocephalic and Anicteric
Cardiovascular: Regular Rhythm
Respiratory: Crackles, Non-Labored Respirations, Accessory Resp Muscle Use and Stridor
GI: Soft, Distended (mildly) and Normal Bowel Sounds
Neurology: Awake, Alert and No Motor Deficits
Skin: Warm, Good Color, Cyanosis (n), Jaundice and Rash (n)
Labs/Micro/Reports
Lab Data
08/23/24 03:54
08/23/24 03:54
Laboratory Results
08/22/24 08/22/24 08/23/24
11:04 23:59 06:00
APTT 87.1 H 59.3 H Cancelled
08/23/24
07:04
APTT 110.0 H
[2024-08-23] MEDS: DELTASONE 20 MG PO (07:36)
[2024-08-23] MEDS: APRESOLINE 25 MG PO (07:36)
[2024-08-23] MEDS: PACERONE 200 MG PO (07:37)
[2024-08-23] MEDS: ASPIR LOW (ENTERIC COATED) 81 MG PO (07:37)
[2024-08-23] MEDS: LASIX 80 MG IV ×2 (07:37→16:09)
[2024-08-23] MEDS: NOVOLOG FLEXPEN-HIGH RESISTANCE 2 UNITS SC (07:44)
[2024-08-23 07:54] LABS: Glucose - Point of Care 165 mg/dl (70-99)
--- NOTE | 2024-08-23 08:00 | PTCARENOTE ---
Received patient back from road production general manager. assessment as charted. patient has been asking for ice chips. He is on 3L nasal cannula. Vpaced on monitor. Solen Pradeep and A-line connections assessed, visualized, leveled and zero'ed to atmospheric
pressure. Patient has diet ordered. obtained blood sugar and asssisted in ordering. Bonifacio for accurate I&O. Heparin and midodrine infusing into cordis. Assessment as charted, will review orders.
--- NOTE | 2024-08-23 08:43 | W.PN.NEPH.PH ---
Today's Communication / Plan
-
Maintain IV diuresis
Add metolazone 5 mg daily
Follow BMP
Patient is not a dialysis candidate
Assessment/Plan
-
74 y/o M, hx of Obesity, HTN, HLD, T2DM, Afib on eliquis, Hx of LBBB, hx of BioAVR and 1 vessel CABG, JAMES not compliance on CPAP, s/p ICD presents to pipelines laborer for elective RHC. . He was previously on Lasix, later trialed on Bumex (developed rash)
and now is on Torsemide. Today's RHC showed cardiac index of 1.0 and elevated wedge pressures of 37
renal consult for acute on chronic kidney disease with a baseline creatinine 1.6-1.8 with admitting creatinine 2.2.
Impression:
Acute on chronic kidney disease secondary to cardiorenal
acute CHF status post right heart cath cardiac output severely diminished with ejection fraction 15 to 20%
atrial fibrillation rate controlled
CAD/CHF/ICD
plan:
Creatinine remains unchanged and not far off baseline in setting of cardiorenal syndrome
Remains hemodynamically labile on inotropic support
Right heart cath reviewed from 08/22/2024 pulmonary capillary wedge pressure 27 cardiac output 4.4 L cardiac index 1.7, SVR 1432
Agree with inotropic support with IV diuresis, urine output around 1700 mL
Will add 5 mg of metolazone daily to augment diuresis
Lasix 80 mg IV twice daily will monitor daily weights and urine output with Valdovinos catheter
sodium restriction 2 g
SGLT2 inhibitor on hold.
abdominal ultrasound evaluate ascites
creatinine on admission 2.2 and remains unchanged at 2.2, not far off baseline
no acute need for dialysis and going forward it would be difficult to pursue dialysis if indicated in the setting of severe cardiomyopathy and profound hemodynamic instability and therefore not a candidate
Diuresing well on Lasix and MODESTA tropic medication -3 L. Monitor bicarb and potassium with aggressive diuresis
-
-
Date of Service: August 23, 2024
CC / HPI / ROS
-
Chief Complaint:
Shortness of breath
History of Present Illness:
Acute on chronic kidney disease secondary to CHF improving clinically
Creatinine unchanged at 2.2
Hemodynamically labile on inotropic support
Review of Systems:
Improved shortness of breath
-3 L
Nonoliguric
Weights unchanged
Labs
-
Labs:
WBC 9.0 10^3/uL (4.8-10.8) 08/23/24 03:54
RBC 4.74 10^6/uL (4.70-6.10) 08/23/24 03:54
Hgb 13.7 g/dL (13.0-18.0) 08/23/24 03:54
Hct 42.7 % (39.0-52.0) 08/23/24 03:54
Plt Count 124 10^3/uL (130-400) L 08/23/24 03:54
Sodium 138 mmol/L (135-145) 08/23/24 03:54
Potassium 3.8 mmol/L (3.5-5.1) 08/23/24 03:54
Chloride 96 mmol/L (98-107) L 08/23/24 03:54
Carbon Dioxide 31 mmol/L (22-30) H 08/23/24 03:54
BUN 94 mg/dl (9-20) H 08/23/24 03:54
Creatinine 2.2 mg/dL (0.7-1.3) H 08/23/24 03:54
eGFR 30.28 08/23/24 03:54
Glucose 198 mg/dl (70-99) H 08/23/24 03:54
Calcium 8.3 mg/dl (8.4-10.2) L 08/23/24 03:54
Bck-[id number] Pept 53824 pg/ml 08/21/24 17:10
Albumin 3.8 g/dl (3.5-5.0) 08/23/24 03:54
Physical Exam
-
Vital Signs:
Vital Signs
Temp Pulse Resp BP Pulse Ox
96.7 F L 83 17 108/65 100
08/23/24 07:51 08/23/24 07:45 08/23/24 07:45 08/23/24 07:37 08/23/24 08:03
Cardiovascular:: Regular rate and rhythm
Respiratory:: Bilateral: Coarse
Lung Excursion:: Normal
Abdomen:: Soft
Bowel Sounds:: Normal
Extremity Edema:: +2: Bilateral: (Anasarca)
Valdovinos Catheter: Yes
[2024-08-23] MEDS: ZAROXOLYN 5 MG PO (10:38)
--- NOTE | 2024-08-23 11:00 | CM ---
CM following re: discharger planning.
Discussed in Rounds, reviewed pt's chart, met with pt. Pt's spouse and pt's daughter participated in Rounds meeting. Per Rounds meeting, pt requires 2L NC of O2, on fluid restriction, Per Nephrology pt is not dialysis candidate.
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 Per pt he has been very weak at home and he feels he will need some help with ambulation.
PT and OT will evaluate the pt to determine a level of care at discharge.
D/C plan: home with most likely VN services. PT and OT to confirm
CM will follow with discharge plan updates as hospitalization progresses
[2024-08-23] MEDS: KCL 20 MEQ PO (11:16)
[2024-08-23] MEDS: ATIVAN 0.5 MG PO (11:16)
--- NOTE | 2024-08-23 11:39 | W.PN.INTV ---
Today's Communication / Plan
Recommendations
Change insulin to moderate resistance sliding scale
continue diuresis-I/O charting
Replete electrolytes as needed
Low dose ativan for anxiety
Taper off prednisone,can stop after tomorrow's dose
Assessment
-
Impression
Mr Carrera is a 74-year-old male with a history of hypertension, hyperlipidemia, CAD/CABG, diabetes, atrial fibrillation and JAMES/CPAP intolerant , AICD in place with subsequent worsening shortness of breath ,underwent elective right heart
catheterization that showed severely elevated filling pressures with low cardiac index necessitating pulmonary artery catheter placement.
Assessment
Acute on chronic with reduced EF(15-20%)
Acute on chronic kidney disease secondary to cardiorenal syndrome
Hyperglycemia
Mild abdominopelvic ascites/pleural effusion
Plan
Acute on chronic with reduced EF(15-20%)
Extensive cardiac history including a CABG/AICD placed in 06/2025/atrial fibrillation
Cardiomyopathy-EF 20%
Right heart catheterization results 08/21/2024-significantly elevated filling pressures with low cardiac index-RHC 08/21/24: RA 30, PA 63/38, PCWP 35-42, CO/CI 2.3/0.96, SVR 1880
08/22/2024-Improvement in RIGHT SIDED PRESSURES AND CARDIAC OUTPUT/INDEX
Continue to measure pulmonary artery pressures
Continue diuresis as tolerated
Trend Input/output and daily weights
Replace electrolytes as needed
Atrial fibrillation-Continue amiodarone as per cards
Acute on chronic kidney disease secondary to cardiorenal syndrome
Creatinine remains unchanged although right sided pressures in heart are improving
Nephrology consult appreciated- Agree with inotropic support with IV diuresis Total [id number] mLTotal [id number] [id number] mL
As per Nephro--added 5 mg of metolazone daily to augment diuresis
continue to trend I/O,daily output
Patient's weight remains unchanged
Hyperglycemia
Patient has blood sugar readings >180 since last 2 days
HbA1c 7.2,07/14/2024
Insulin resistance on sliding scale changed to moderate
Monitor blood sugar levels
Mild abdominopelvic ascites/pleural effusion
Abdominal ultrasound showed mild abdominopelvic ascites 08/22/2024
FINDINGS: There is mild abdominopelvic ascites. The largest pocket is in the lateral left lower quadrant.
There is a moderate right pleural effusion.
Monitor liver functions
Consider GI evaluation for ascites and elevated lfts
ANXIETY
Continue zoloft
Ativan as needed
Systemic review
Awake and alert
Currently on 3 liters of oxygen
off ionotropes-can continue if needed for diuresis
On cholesterol lowering diet
Other medical conditions
Hypertension.
Hyperlipidemia.
Diabetes.
CAD/CABG/AVR.
Cardiomyopathy-EF 20%
ICD June 2025.
JAMES/CPAP intolerant.
Atrial fibrillation on Eliquis.
Abnormal CT abdomen-suggestive of cirrhosis 07/2024
Varicocele repair. Lumbar discectomy 2021. Repair ascending aortic aneurysm/AVR-bovine.
DVT ppx-Heparin
Full code
Subjective Dataa
Subjective Data
Date of Service:
Date of Service: August 23, 2024
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
Subjective:
Patient feeling better,ate breakfast and reports improved breathing
Review of Systems
General: Other (Reviewed and negative)
Objective Data
Data Reviewed
Vital Signs / I&O / Oxygen:
Vital Signs
Temp Pulse Resp BP Pulse Ox
96.8 F L 88 17 108/62 100
08/23/24 11:00 08/23/24 10:38 08/23/24 07:45 08/23/24 10:38 08/23/24 08:03
Intake and Output
08/22/24 08/23/24 08/24/24
06:59 06:59 06:59
Intake Total 617.4 / 633.0 1585.2 / 1612.8 128.0 / 128.0
Output Total 3075 / 3150 1760 / 1835 400 / 400
Balance -2457.6 / -2517.0 -174.8 / -222.2 -272.0 / -272.0
SaO2 100
Nasal Cannula flow liters per 3
minute
Physical Exam
General: Comfortable and Other (Well developed, well nourished, )
HEENT: Normocephalic, Anicteric and Other (on 3 liters of oxygen)
Cardiovascular: S1-S2, Regular Rhythm and Other (No rubs or murmurs)
Respiratory: Wheeze and Non-Labored Respirations
GI: Soft, Distended (mildly), Non Tender and Normal Bowel Sounds
Neurology: Awake, Alert and No Motor Deficits
Skin: Warm and Good Color
Labs/Micro/Reports
Lab Data
08/23/24 03:54
08/23/24 03:54
Laboratory Results
08/22/24 08/23/24 08/23/24
23:59 06:00 07:04
APTT 59.3 H Cancelled 110.0 H
--- NOTE | 2024-08-23 11:44 | PTCARENOTE ---
Patient has been feeling antsy/anxious. Ordered Ativan for patient PO, administered.
[2024-08-23] MEDS: HEPARIN 25000 UNITS/250 ML IV (11:55)
[2024-08-23] MEDS: PRIMACOR 20 MG 100 IV (11:56)
--- NOTE | 2024-08-23 12:00 | W.PN.HOSP.TC ---
Today's Communication/Plan
-
continue pulm cath/Leupp monitoring, continue Milrinone, IV Lasix. optimize GDMT for hemodynamics
Assessment / Plan
Assessment / Plan
Assessment:
Acute on chronic heart failure with reduced ejection fraction, EF 25-30%
Cardiomyopathy, mixed without improved ejection fraction despite optimal medical therapy
s/p Medtronic biventricular ICD 07/07/2024
- BNP 17,500
- s/p RHC with Severely elevated right and left-sided filling pressures with severe pulmonary hypertension and severely reduced cardiac output (cardiac index .96) in the setting of elevated systemic vascular resistance. Wedge 35.
- s/p swan Pradeep cath placement 08/22
- continue Milrinone for cardiogenic shock, monitor BP's with invasive A-line
- continue IV Lasix - requires intensive monitoring of weights, lytes, I/Os. metolazone added today
- sodium/fluid restriction
- hold GDMT therapy for now; Aldactone/BB held. on Hydralazine with Cardiology titrating
- DCA cards following
JAI on CKD stage 3b, acute cardiorenal state
Hyponatremia
- Nephrology following
JAMES not using CPAP at home
- continue nocturnal BIPAP
- Pum following
Hypokalemia, replete as needed
Abdominal distention
- mild ascites on US
LBBB
Hx NSVT
- s/p Medtronic biventricular ICD 07/07/2024
History of atrial fibrillation s/p cv 07/23/2023
- continue Amiodarone
- IV Heparin drip requires intensive monitoring of PTTs; holding Eliquis in case additional support procedures needed for advanced CHF
History of COVID September 2021
HTN
- Aldactone/BB held. on Hydralazine with Cardiology titrating
HLD
- continue statin
DM2
- hold Jardiance
- continue SSI
- A1c: 7.2% recently
CAD s/p 1 vessel CABG 2009
- continue ASA/Statin
s/p bioAVR 2009
H/o Cough syncope
Radiculopathy
Depression - on Zoloft
Ocular migraines
Renal calculi
Arthritis
DVT ppx: IV Heparin
Code: Full code after re-discussed with daughter
Total Critical Care Time 44 minutes. I was immediately available to the patient and staff. I personally examined, reviewed labs, diagnostic images/reports, interpretations, treatment plans, discussed patient care with other providers and family
or caregivers (if patient is unable to make decisions), entered orders as appropriate and documented the medical record.
Anticipated Discharge: > 48 hours
Subjective/Interval History
-
Date of Service: August 23, 2024
s/p Leupp placement with noted improvement in wedge and C.I readings
comfortable at present, denies chest pain
Objective Data
-
Labs:
Laboratory Results
08/22/24 08/23/24 08/23/24
23:59 03:54 06:00
WBC 9.0
Hgb 13.7
Hct 42.7
Plt Count 124 L
APTT 59.3 H Cancelled
Sodium 138
Potassium 3.8
Chloride 96 L
Carbon Dioxide 31 H
BUN 94 H
Creatinine 2.2 H
Glucose 198 H
Calcium 8.3 L
Total Bilirubin 1.3
AST 64 H
ALT 92 H
Alkaline Phosphatase 69
08/23/24 08/23/24
07:04 13:00
WBC
Hgb
Hct
Plt Count
APTT 110.0 H Pending
Sodium
Potassium
Chloride
Carbon Dioxide
BUN
Creatinine
Glucose
Calcium
Total Bilirubin
AST
ALT
Alkaline Phosphatase
Vital Signs:
Vital Signs
Temp Pulse Resp BP Pulse Ox
96.8 F L 83 15 108/62 100
08/23/24 11:00 08/23/24 11:30 08/23/24 11:30 08/23/24 10:38 08/23/24 11:30
I&O
08/22/24 08/23/24 08/24/24
06:59 06:59 06:59
Intake Total 617.4 / 633.0 1585.2 / 1612.8 128.0 / 128.0
Output Total 3075 / 3150 1760 / 1835 400 / 400
Balance -2457.6 / -2517.0 -174.8 / -222.2 -272.0 / -272.0
Physical Exam
-
General: No Apparent Distress
HEENT: Normocephalic and Atraumatic
Cardiac: Regular Rhythm and S1/S2
GI: Distended (slightly)
Musculoskeletal: No Edema
Neuro: AO x 3
Hematologic / Lymphatic: No Lymphadenopathy
Psych: Calm
Data Reviewed
-
Critical Care Time (in minutes): 44
Labs: Labs Reviewed by me
--- NOTE | 2024-08-23 12:11 | W.PN.CARDCBS ---
Today's Communication / Plan
-
Plan:
1. Repeat right heart cath and leave in Coulters-Pradeep catheter yesterday with improved numbers via right IJ.
2. Repeat limited echocardiogram from this admission showed mean transaortic gradient increased to 30 mmHg from 19 mmHg previously concerning for bioprosthetic stenosis in the setting of known severe cardiomyopathy.
3. Goal for this admission is to resolve cardiogenic shock and in proved invasive hemodynamics. Continue current dose of milrinone for now while uptitrating afterload reduction/GDMT. Hold on beta-blockers for now given cardiac indices based on
mixed venous sat by Lila calculation is still about 1.7. Increase hydralazine to 37.5 mg 3 times daily and add low-dose nitrate.
4. Goal over the next 24 to 48 hours is to be able to wean off milrinone as invasive hemodynamics and cardiac output continues to improve. Eventual addition back of beta-vicky in form of carvedilol as hemodynamics will allow along with Jardiance
based on renal function/GFR and blood pressure
5. Continue amiodarone and heparin.
6. Hold Entresto/LYNDSEY/ARB/SGLT2i in setting of recent JAI and labile renal function.
7. Discussion amongst structural team in regards to TAVR workup in the near future as an outpatient. Possible consideration for MISAEL to visualize valve better prior to discharge but this is not definitive. Heart catheterization/coronary angiogram
as noted above in March 2020.
8. He remains in cardiogenic shock in the intensive care
Discussed all of the above in detail with patient, and daughter at bedside. Discussed with nursing and primary team and outpt sales representative supervisor.
Critical care time 35-minutes
Impression / Plan
-
PCP: Dr. Chintan Gonzalez
Cardiology: Dr. Gabriel
Impression
Acute on chronic HFrEF with cardiogenic shock
JAI
Cardiomyopathy, mixed without improved ejection fraction despite optimal medical therapy
s/p [employer] biventricular ICD 07/07/2024
LBBB
CAD
s/p bio AVR 2009
Paroxysmal atrial fibrillation
s/p cv 07/23/2023 Chronic AC w/ Eliquis
h/o NSVT
h/o COVID September 2021
HTN
HLD
DM2
JAMES not using CPAP
h/o cough syncope
Radiculopathy
Depression
Ocular migraines
Renal calculi
Arthritis
Lexiscan sestamibi stress test 07/13/2023: Moderate sized medium in severity fixed basal to distal inferior, basal to mid inferoseptal, small mid anterior perfusion defect with no evidence of ischemia. Ejection fraction 21% with severe global
hypokinesis
Cardiac catheterization 03/28/2024: LM: LI. LAD: Moderate to severe diffuse atherosclerotic plaque. D2 has 30% stenosis. Left circumflex: Mid 60 to 70% stenosis. RCA: LI.
HEMODYNAMICS : (mmHg) RA (m) : 22; RV (s/d,m) : 72/14, 24; PA (s/d, m) : 72/34, 50; PCWP (m) : 34, V waves to 53 mmHg; PA saturation: 62.5% on room air; AO saturation: 93.6% on room air;
Cardiac Output : 5.58 L/min; Cardiac Index : 2.23 L/min/m-2; Systemic vascular resistance: 889 dsc^(-5); Pulmonary vascular resistance: 2.87 willams unit; AO (s/d) : 102/61; LV (s/d) : 131/21; LVEDP : 30
Estimated invasive transaortic gradient of 27 mmHg, aortic valve area 1.3 cm�
Significantly elevated right and left-sided filling pressures with severe pulmonary hypertension and normal cardiac output. Borderline low systemic vascular resistance.
RHC 08/21/24: RA 30, PA 63/38, PCWP 35-42, CO/CI 2.3/0.96, SVR 1880
RHC 08/23/24: RA 15, PA 65/28, PCWP 27, CO/CI 4.47/1.75, PA sat 65.6%, SVR 1432, PVR 3.81
Echo 01/2022: Ejection fraction 40%, global hypokinesis, status post AVR with mean gradient of 10 mmHg
Echo 06/28/2023: Dilated right ventricle with ejection fraction of 20 to 25%, status post bioprosthetic AVR with mean gradient of 15 mmHg, dilated right heart with PA systolic of 45 mmHg
Echo 08/03/2023: Ejection fraction 25 to 30%, hypokinetic septum, apex, inferior, anterior and distal lateral pelletier, mild concentric LVH, moderate MR, status post bioprosthetic AVR with mean gradient of 13 mm hG
Echo 02/16/2024: EF 25%. Global hypokinesis with basal inferior and basal inferolateral akinesis. Stage III diastolic dysfunction. Moderate to severe MR. Severely dilated left atrium. #23 bovine aortic valve with peak/mean gradient 46/29 mmHg.
Mild AI. Mild TR. PAP 35 mmHg
Echo 07/14/2024: EF 25-30% with global hypo, enlarged RV, ICD in place well seated #23 bovine AVR with peak/mean grad of 27/19 mmHg respectively, trace pericardial effusion.
Echo 08/21/24: EF 15-20%, AVR with mean gr 30, PA 30
Plan:
1. Repeat right heart cath and leave in Coulters-Pradeep catheter yesterday with improved numbers via right IJ.
2. Repeat limited echocardiogram from this admission showed mean transaortic gradient increased to 30 mmHg from 19 mmHg previously concerning for bioprosthetic stenosis in the setting of known severe cardiomyopathy.
3. Goal for this admission is to resolve cardiogenic shock and in proved invasive hemodynamics. Continue current dose of milrinone for now while uptitrating afterload reduction/GDMT. Hold on beta-blockers for now given cardiac indices based on
mixed venous sat by Lila calculation is still about 1.7. Increase hydralazine to 37.5 mg 3 times daily and add low-dose nitrate.
4. Goal over the next 24 to 48 hours is to be able to wean off milrinone as invasive hemodynamics and cardiac output continues to improve. Eventual addition back of beta-vicky in form of carvedilol as hemodynamics will allow along with Jardiance
based on renal function/GFR and blood pressure
5. Continue amiodarone and heparin.
6. Hold Entresto/LYNDSEY/ARB/SGLT2i in setting of recent JAI and labile renal function.
7. Discussion amongst structural team in regards to TAVR workup in the near future as an outpatient. Possible consideration for MISAEL to visualize valve better prior to discharge but this is not definitive. Heart catheterization/coronary angiogram
as noted above in March 2020.
8. He remains in cardiogenic shock in the intensive care
Discussed all of the above in detail with patient, and daughter at bedside. Discussed with nursing and primary team and outpt sales representative supervisor.
Critical care time 35-minutes
Progress Note - Gear Setter
Subjective
Date of Service: August 23, 2024
Overall improved SOB
Objective
Labs:
08/23/24 03:54
08/23/24 03:54
Labs
Hgb 13.7 g/dL (13.0-18.0) 08/23/24 03:54
Hct 42.7 % (39.0-52.0) 08/23/24 03:54
Plt Count 124 10^3/uL (130-400) L 08/23/24 03:54
APTT 110.0 Sec (23.4-35.0) H 08/23/24 07:04
Sodium 138 mmol/L (135-145) 08/23/24 03:54
Potassium 3.8 mmol/L (3.5-5.1) 08/23/24 03:54
BUN 94 mg/dl (9-20) H 08/23/24 03:54
Creatinine 2.2 mg/dL (0.7-1.3) H 08/23/24 03:54
Glucose 198 mg/dl (70-99) H 08/23/24 03:54
Vital Signs and I&O:
Vital Signs
Temp Pulse Resp BP Pulse Ox
96.8 F L 85 15 108/62 100
08/23/24 11:00 08/23/24 12:00 08/23/24 12:00 08/23/24 10:38 08/23/24 11:45
Vital Signs
Temp Pulse Resp BP Pulse Ox
96.8 F L 85 15 108 100
08/23/24 11:00 08/23/24 12:00 08/23/24 12:00 08/23/24 10:38 08/23/24 11:45
Intake & Output
08/21/24 08/22/24 08/23/24 08/24/24
06:59 06:59 06:59 06:59
Intake Total 617.4 / 633.0 1585.2 / 1612.8 155.6 / 155.6
Output Total 3075 / 3150 1760 / 1835 460 / 460
Balance -2457.6 / -2517.0 -174.8 / -222.2 -304.4 / -304.4
Physical Exam
Physical Exam
GEN: No distress, awake, Ox3
HEENT: supple, anicteric, mmm
LUNGS: CTA, no wheezes/rales
CV: Reg, S1/S2, 1/6 syst LSB, S3+
ABD: soft, BS+, NT/ND
EXT: No edema
NEURO: Gross non-focal
SKIN: No rash
[2024-08-23 12:49] LABS: Glucose - Point of Care 285 mg/dl (70-99)
[2024-08-23] MEDS: NOVOLOG FLEXPEN-HIGH RESISTANCE 7 UNITS SC ×2 (13:11→18:00)
[2024-08-23] MEDS: IMDUR (EXTENDED RELEASE) 30 MG PO (13:12)
[2024-08-23] MEDS: BENADRYL 25 MG PO (13:52)
[2024-08-23 13:57] LABS: APTT 127.1 Sec (23.4-35.0)
[2024-08-23] MEDS: APRESOLINE 37.5 MG PO (16:23)
[2024-08-23] MEDS: CRESTOR PO (18:02)
[2024-08-23 18:11] LABS: Glucose - Point of Care 267 mg/dl (70-99)
--- NOTE | 2024-08-23 21:00 | PTCARENOTE ---
field account manager, pt resting with eyes closed. Thermo #s done- CO 4.29, CI 1.77. LA IV, PA cath with cordis WNL- heparin/milrinone gtt infusing as documented. R sumi RAYMUNDO WNL. Valdovinos draining adequate amt yellow urine. call alvarez in reach.
[2024-08-23 21:30] LABS: APTT 146.8 Sec (23.4-35.0)
[2024-08-23 21:34] LABS: Glucose - Point of Care 183 mg/dl (70-99)
[2024-08-23] MEDS: APRESOLINE PO (22:53)
[2024-08-23] MEDS: XALATAN OPHTHALMIC SOLUTION 1 DROP RIGHT EYE (22:53)
[2024-08-23] MEDS: ZOLOFT 50 MG PO (22:54)
[2024-08-23] MEDS: LANTUS 0.1 UNITS SC (22:57)
[2024-08-24 03:06] VITALS: BMI 36.6
--- NOTE | 2024-08-24 04:00 | PTCARENOTE ---
no changes in pt assessment.
[2024-08-24 04:56] LABS: Mixed Venous O2 Saturation 61.5 %
[2024-08-24 05:29] LABS: ALT (SGPT) 81 U/L (0-50); AST (SGOT) 51 U/L (17-59); Albumin 3.6 g/dl (3.5-5.0); Alkaline Phosphatase 71 U/L (38-126); Blood Urea Nitrogen 83 mg/dl (9-20); Calcium 8.3 mg/dl (8.4-10.2); Carbon Dioxide 30 mmol/L (22-30); Chloride 95 mmol/L (98-107); Estimated Creatinine Clearance 45 ml/min; Glucose 161 mg/dl (70-99); Potassium 3.6 mmol/L (3.5-5.1); Sodium 135 mmol/L (135-145); Total Bilirubin 1.2 mg/dl (0.2-1.3); Total Protein 5.9 g/dl (6.3-8.2); eGFR 36.11
[2024-08-24 05:48] LABS: Hematocrit 41.5 % (39.0-52.0); Hemoglobin 13.3 g/dL (13.0-18.0); Mean Corpuscular Volume 90.6 fL (80.0-94.0); Platelet Count 114 10^3/uL (130-400); Red Blood Cell Count 4.58 10^6/uL (4.70-6.10); Red Cell Dist. Width 15.5 % (11.5-14.5); White Blood Cell Count 9.5 10^3/uL (4.8-10.8)
[2024-08-24 05:51] LABS: APTT 82.2 Sec (23.4-35.0)
[2024-08-24 07:43] LABS: Glucose - Point of Care 168 mg/dl (70-99)
--- NOTE | 2024-08-24 07:46 | W.PN.INTV ---
Today's Communication / Plan
Recommendations
Wean oxygen
Intensify diuretics
Inotropes continue
Monitor pulmonary artery pressure parameters
Assessment
-
74-year-old obese occasional cigar smoking male with a history of hypertension, hyperlipidemia, CAD/CABG, diabetes, atrial fibrillation and JAMES/CPAP intolerant recently had AICD placed with subsequent history of difficult to control CHF underwent
elective right heart catheterization noted to have severely elevated filling pressures with low cardiac index necessitating ICU/pulmonary artery catheter/inotropes-binder fixer consulted for CHF/critical care management 08/22/2024.
CHF-acute on top of chronic with reduced EF
Cardiomyopathy status post recent biventricular ICD 07/07/2024
JAI
Hyperglycemia
Hypocalcemia
Elevated LFTs
Pleural effusion
Conditions present prior to admission:
Hypertension.
Hyperlipidemia.
Diabetes.
CAD/CABG/AVR.
Cardiomyopathy-EF 20%
ICD June 2025.
JAMES/CPAP intolerant.
Atrial fibrillation on Eliquis.
Abnormal CT abdomen-suggestive of cirrhosis 07/2024
Varicocele repair. Lumbar discectomy 2021. Repair ascending aortic aneurysm/AVR-bovine.
Plan
Patient critically ill and admitted to ICU to obtain pulmonary artery catheter, inotropes, diuresis-extensive cardiac and pulmonary workup summarized below
Supplemental oxygen as needed
Incentive spirometry
CPAP or BiPAP at night as tolerated-in the past has been intolerant-willing to use-has not used over the last 2 nights
Aspiration precautions
Nebulizers if needed-currently not bronchospastic
Cardiology following-correspondence reviewed
Right heart catheterization results reviewed-significantly elevated filling pressures with low cardiac index-[facility] 08/21/24: RA 30, PA 63/38, PCWP 35-42, CO/CI 2.3/0.96, SVR 1880
Pulmonary artery catheter placement-08/22/2024-improvement in cardiac index
Continue to measure pulmonary artery parameters
Continue diuresis as tolerated-intensify per nephrology
Inotropes continue-currently on milrinone-might change to dobutamine
Monitor renal function, electrolytes, intake/output, lower extremity edema and weight
Replace electrolytes as needed
Amiodarone continues as well
Heparin drip continues-Eliquis on hold-consider resumption
Eventually start carvedilol and start SGLT2 inhibitor
Monitor renal function
Replace electrolytes
Acute cardiorenal state
Nephrology following-correspondence reviewed
Monitor ascites-not enough fluid for diagnostic or therapeutic paracentesis
Abdominal ultrasound summarized below
Monitor liver functions
Consider GI evaluation for questionable cirrhosis
Monitor MSAS
Alcohol withdrawal treatment protocol if indicated
Ativan as needed
Monitor blood sugar
Insulin supplementation as needed
Last saw Dr. Mars/Gabrielle Macario CNP on 11/29/2023
Reviewed with as well as daughter at the bedside 08/22/2024, 08/23/2024, as well as 08/24/2024
Critical care statement: A total of 40 minutes of critical care time was provided for this patient today. This includes management of unstable vital signs, evaluation of the patient at bedside, reviewing the patient's pertinent medical records
including radiographs, pressor and inotrope management, diuresis management, microbiology, laboratory evaluations, and discussion with primary team, consultants, pharmacy, nutrition, physical therapy, case management, charge nurse, critical care
nursing, and respiratory therapy.
Diagnostic data:
CXR 10/01/21: cardiomegaly with slightly prominent pulmonary vascularity which could represent mild CHF vs atypical acute pulmonary edema. possible left basilar patchy opacity such as pna������
��
Chest x-ray 12/10/21-NAD
Chest x-ray 08/22/2024-no acute disease in the chest, cardiomegaly, waterbed configuration
CT Chest 09/29/21: no PE. small bilateral pleural effusions. mild peripheral ground glass densities in lower lung zones b/l suggesting mild residual pna.��
CT chest 07/11/23-no pulmonary embolism, minimal right pleural effusion, minimal pleural thickening left hemithorrax, no adenopathy or nodules.
CT chest 07/31/2024-small right pleural effusion, moderate ascites, liver contour appears to be subtly nodular suggestive of cirrhosis, basilar atelectasis
Abdominal ultrasound 08/22/2024-moderate ascites, slightly progressed, moderate right pleural effusion
US BLE 10/01/21: negative for DVT������������������
ECHO 08/11/21: ischemic heart disease with mildly reduced systolic function. LV EF 40-45%. moderate LVH. RV base mildly enlarged. Tricuspid and mitral regurgitation. s/p bioprosthetic aortic valve prosthesis.�������
Nuclear stress test 06/12/21-EF 25%, moderate risk study�������
Echocardiogram 06/28/23-EF 20-25%, stage II diastolic dysfunction, bioprosthetic aortic valve, PA systolic 45, rhythm atrial fibrillation�������
Stress test 07/13/23-revealed a moderate in size, medium severity fixed basal to distal inferior and inferoseptal perfusion defect, EF 21%, overall high risk study.�������
Echo 02/16/2024: EF 25%. Global hypokinesis with basal inferior and basal inferolateral akinesis. Stage III diastolic dysfunction. Moderate to severe MR. Severely dilated left atrium. #23 bovine aortic valve with peak/mean gradient 46/29 mmHg.
Mild AI. Mild TR. PAP 35 mmHg
Echo 07/14/2024: EF 25-30% with global hypo, enlarged RV, ICD in place well seated #23 bovine AVR with peak/mean grad of 27/19 mmHg respectively, trace pericardial effusion.
Echo 08/21/24: EF 15-20%, AVR with mean gr 30, PA 30
Cardioversion 07/23/23-successful cardioversion from atrial fibrillation to sinus rhythm.
Cardiac catheterization 03/28/2024: LM: LI. LAD: Moderate to severe diffuse atherosclerotic plaque. D2 has 30% stenosis. Left circumflex: Mid 60 to 70% stenosis. RCA: LI.
HEMODYNAMICS : (mmHg) RA (m) : 22; RV (s/d,m) : 72/14, 24; PA (s/d, m) : 72/34, 50; PCWP (m) : 34, V waves to 53 mmHg; PA saturation: 62.5% on room air; AO saturation: 93.6% on room air;
Cardiac Output : 5.58 L/min; Cardiac Index : 2.23 L/min/m-2; Systemic vascular resistance: 889 dsc^(-5); Pulmonary vascular resistance: 2.87 willams unit; AO (s/d) : 102/61; LV (s/d) : 131/21; LVEDP : 30
Estimated invasive transaortic gradient of 27 mmHg, aortic valve area 1.3 cm�
Significantly elevated right and left-sided filling pressures with severe pulmonary hypertension and normal cardiac output. Borderline low systemic vascular resistance.
PFT 12/19/21-FEV1 2.55-72%, FVC 3.77 L-70%, no significant response, TLC 80%, 90%, DLCO 64%. Mild obstruction and moderate reduction in diffusing capacity.�������
Spirometry 07/29/23-FEV1 1.18-34%, FVC 1.5-39%, no significant BD response. Severe obstruction.
Subjective Dataa
Subjective Data
Date of Service:
Date of Service: August 24, 2024
Chief Complaint: Bus Attendant Follow Up and Pulmonary Follow Up
Subjective:
Feels better, less anxious, no complaints of shortness of breath at rest, chest pain, productive cough or abdominal pain
Review of Systems
General: Other (Per HPI)
Objective Data
Data Reviewed
Vital Signs / I&O / Oxygen:
Vital Signs
Temp Pulse Resp BP Pulse Ox
96.5 F L 87 17 98/60 99
08/24/24 03:06 08/24/24 06:15 08/24/24 06:15 08/23/24 22:53 08/24/24 06:15
Intake and Output
08/23/24 08/24/24 08/25/24
06:59 06:59 06:59
Intake Total 1585.2 / 1612.8 1399.4 / 1399.4
Output Total 1760 / 1835 1765 / 1765
Balance -174.8 / -222.2 -365.6 / -365.6
SaO2 99
Nasal Cannula flow liters per 3
minute
Physical Exam
General: Respiratory Distress (n), Comfortable and Other (Well developed, well nourished, )
HEENT: Normocephalic, Anicteric and Other (on 3 liters of oxygen)
Cardiovascular: Regular Rhythm and Other (No rubs or murmurs)
Respiratory: Wheeze (n), Crackles (Basilar), Rhonchi (n), Non-Labored Respirations, Accessory Resp Muscle Use (n) and Stridor (n)
GI: Soft, Distended (mildly), Non Tender and Normal Bowel Sounds
Neurology: Awake, Alert and No Motor Deficits
Skin: Warm, Good Color, Cyanosis (n) and Jaundice (n)
Labs/Micro/Reports
Lab Data
08/24/24 04:48
08/24/24 04:48
Laboratory Results
08/23/24 08/23/24 08/24/24
13:29 21:07 04:48
APTT 127.1 H 146.8 H 82.2 H
[2024-08-24] MEDS: NOVOLOG FLEXPEN-HIGH RESISTANCE 2 UNITS SC (08:30)
[2024-08-24] MEDS: NOVOLOG FLEXPEN-HIGH RESISTANCE SC (08:33)
[2024-08-24] MEDS: IMDUR (EXTENDED RELEASE) 30 MG PO (08:35)
[2024-08-24] MEDS: ZAROXOLYN 5 MG PO (08:35)
[2024-08-24] MEDS: DELTASONE 20 MG PO (08:36)
[2024-08-24] MEDS: APRESOLINE 37.5 MG PO ×3 (08:37→22:02)
[2024-08-24] MEDS: PACERONE 200 MG PO (08:39)
[2024-08-24] MEDS: ASPIR LOW (ENTERIC COATED) 81 MG PO (08:40)
[2024-08-24] MEDS: LASIX 80 MG IV ×3 (08:40→21:11)
[2024-08-24] MEDS: KCL ELIXIR 40 MEQ PO (08:41)
--- NOTE | 2024-08-24 09:00 | PTCARENOTE ---
pt awake and alert , V paced on monitor , chino with BP 100/62, 02 4L with sat of 100% , lungs diminished , abdomen distended acities , no edema in lower extremities , no JVD, nephrology increasing Lasix to TID
--- NOTE | 2024-08-24 09:01 | W.PN.INTV ---
Documented by User: Steph Vicotria MD, Resident 08/24/24 11:09
Today's Communication / Plan
Recommendations
Intensify diuresis-escalate Lasix to 80 mg IV 3 times daily
Off Milrinone
Monitor hemodynamics and serum electrolytes
Add baseline potassium replacement by tomorrow
BMP every 8 hours
Assessment
-
Impression
Mr Carrera is a 74-year-old male with a history of hypertension, hyperlipidemia, CAD/CABG, diabetes, atrial fibrillation and JAMES/CPAP intolerant , AICD in place with subsequent worsening shortness of breath ,underwent elective right heart
catheterization that showed severely elevated filling pressures with low cardiac index necessitating pulmonary artery catheter placement.
Assessment
Acute on chronic with reduced EF(15-20%)
Acute on chronic kidney disease secondary to cardiorenal syndrome
Hyperglycemia
Mild abdominopelvic ascites/pleural effusion
Constipation
Plan
Acute on chronic with reduced EF(15-20%)
Extensive cardiac history including a CABG/AICD placed in 06/2025 and atrial fibrillation
Cardiomyopathy-EF 20%
Right heart catheterization results 08/21/2024-significantly elevated filling pressures with low cardiac index-[facility] 08/21/24: RA 30, PA 63/38, PCWP 35-42, CO/CI 2.3/0.96, SVR 1880
08/22/2024-Improvement in RIGHT SIDED PRESSURES AND CARDIAC OUTPUT/INDEX
Cardiology consult appreciated
Continue to measure pulmonary artery pressures(diastolic PA pressure ranging from 22-30)
Discontinue low-dose milrinone
As per cards -continue to monitor pressures,Continue guideline directed medical therapy as able. Eventually start carvedilol and start SGLT2 inhibitor
Continue diuresis as tolerated-considering Right heart dysfunction
Patient improving clinically with significant improvement in pedal edema although no significant weight changes
Atrial fibrillation-Continue amiodarone as per cards
Acute on chronic kidney disease secondary to cardiorenal syndrome
Creatinine remains unchanged although right sided pressures in heart are improving
Nephrology consult appreciated- Agree with inotropic support with IV diuresis,added metazolone yesterday Total [id number] mLTotal [id number] mLBalance-141.0mL
As per Nephro--Intensify diuresis
continue to trend I/O,daily output
Patient creatinine started to go down,continue to trend and keep in mind the heart failure aspect while increasing the diuresis
Hyperglycemia
Patient has blood sugar readings >180 since last 2 days
HbA1c 7.2,07/14/2024
Insulin resistance on sliding scale changed to moderate
Lantus 10 units added at night,continue to monitor and titrate up as needed
Monitor blood sugar levels
Mild abdominopelvic ascites/pleural effusion
Abdominal ultrasound showed mild abdominopelvic ascites 08/22/2024
FINDINGS: There is mild abdominopelvic ascites. The largest pocket is in the lateral left lower quadrant.
There is a moderate right pleural effusion.
Monitor liver functions
Consider GI evaluation for ascites and elevated lfts
ANXIETY
Continue zoloft
Ativan as needed
Patient feeling better
CONSTIPATION
Stat Sennakot-S and Miralax
Systemic review
Awake and alert
Currently on 3 liters of oxygen
off ionotropes-can continue if needed for diuresis
On cholesterol lowering diet
Other medical conditions
Hypertension.
Hyperlipidemia.
Diabetes.
CAD/CABG/AVR.
Cardiomyopathy-EF 20%
ICD June 2025.
JAMES/CPAP intolerant.
Atrial fibrillation on Eliquis.
Abnormal CT abdomen-suggestive of cirrhosis 07/2024
Varicocele repair. Lumbar discectomy 2021. Repair ascending aortic aneurysm/AVR-bovine.
DVT ppx-Heparin(CONTINUE HEPARIN INFUSION FOR NOW TILL THE PULMONARY ARTERY CATHETER REMOVED-as per cards)
HOLD OFF PHYSICAL THERAPY>CAN MOVE FROM BED TO CHAIR VERY CAUTIOUSLY-as per cards
Full code
Subjective Dataa
Subjective Data
Date of Service:
Date of Service: August 24, 2024
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
Subjective:
No bowel movements since admission,eating okay,feeling less short of breath,MPAP is in 30's
Review of Systems
General: Other (Reviewed and negative)
Objective Data
Data Reviewed
Vital Signs / I&O / Oxygen:
Vital Signs
Temp Pulse Resp BP Pulse Ox
96.9 F L 91 17 102/57 99
08/24/24 08:47 08/24/24 08:40 08/24/24 06:15 08/24/24 08:40 08/24/24 06:15
Intake and Output
08/23/24 08/24/24 08/25/24
06:59 06:59 06:59
Intake Total 1585.2 / 1612.8 1399.4 / 1399.4
Output Total 1760 / 1835 1765 / 1765
Balance -174.8 / -222.2 -365.6 / -365.6
SaO2 99
Nasal Cannula flow liters per 3
minute
Physical Exam
General: Comfortable and Other (Well developed, well nourished, NAD,bilateral pedal edema)
HEENT: Normocephalic, Anicteric and Other (on 4 liters of oxygen)
Cardiovascular: S1-S2, Regular Rhythm and Other (No rubs or murmurs)
Respiratory: Wheeze (provokable) and Non-Labored Respirations
GI: Soft, Distended (mildly), Non Tender and Normal Bowel Sounds
Neurology: Awake, Alert and No Motor Deficits
Skin: Warm and Good Color
Labs/Micro/Reports
Lab Data
08/24/24 04:48
08/24/24 04:48
Laboratory Results
08/23/24 08/23/24 08/24/24
13:29 21:07 04:48
APTT 127.1 H 146.8 H 82.2 H

Documented by User: Silverio Mars MD 08/24/24 11:17
Assessment
-
Impression
Mr Carrera is a 74-year-old male with a history of hypertension, hyperlipidemia, CAD/CABG, diabetes, atrial fibrillation and JAMES/CPAP intolerant , AICD in place with subsequent worsening shortness of breath ,underwent elective right heart
catheterization that showed severely elevated filling pressures with low cardiac index necessitating pulmonary artery catheter placement.
Assessment
Acute on chronic with reduced EF(15-20%)
Acute on chronic kidney disease secondary to cardiorenal syndrome
Hyperglycemia
Mild abdominopelvic ascites/pleural effusion
Constipation
Plan
Acute on chronic with reduced EF(15-20%)
Extensive cardiac history including a CABG/AICD placed in 06/2025 and atrial fibrillation
Cardiomyopathy-EF 20%
Right heart catheterization results 08/21/2024-significantly elevated filling pressures with low cardiac index-[facility] 08/21/24: RA 30, PA 63/38, PCWP 35-42, CO/CI 2.3/0.96, SVR 1880
08/22/2024-Improvement in RIGHT SIDED PRESSURES AND CARDIAC OUTPUT/INDEX
Cardiology consult appreciated
Continue to measure pulmonary artery pressures(diastolic PA pressure ranging from 22-30)
Discontinue low-dose milrinone
As per cards -continue to monitor pressures,Continue guideline directed medical therapy as able. Eventually start carvedilol and start SGLT2 inhibitor
Continue diuresis as tolerated-considering Right heart dysfunction
Patient improving clinically with significant improvement in pedal edema although no significant weight changes
Atrial fibrillation-Continue amiodarone as per cards
Acute on chronic kidney disease secondary to cardiorenal syndrome
Creatinine remains unchanged although right sided pressures in heart are improving
Nephrology consult appreciated- Agree with inotropic support with IV diuresis,added metazolone yesterday Total [id number] mLTotal [id number] mLBalance-141.0mL
As per Nephro--Intensify diuresis
continue to trend I/O,daily output
Patient creatinine started to go down,continue to trend and keep in mind the heart failure aspect while increasing the diuresis
Hyperglycemia
Patient has blood sugar readings >180 since last 2 days
HbA1c 7.2,07/14/2024
Insulin resistance on sliding scale changed to moderate
Lantus 10 units added at night,continue to monitor and titrate up as needed
Monitor blood sugar levels
Mild abdominopelvic ascites/pleural effusion
Abdominal ultrasound showed mild abdominopelvic ascites 08/22/2024
FINDINGS: There is mild abdominopelvic ascites. The largest pocket is in the lateral left lower quadrant.
There is a moderate right pleural effusion.
Monitor liver functions
Consider GI evaluation for ascites and elevated lfts
ANXIETY
Continue zoloft
Ativan as needed
Patient feeling better
CONSTIPATION
Stat Sennakot-S and Miralax
Systemic review
Awake and alert
Currently on 3 liters of oxygen
off ionotropes-can continue if needed for diuresis
On cholesterol lowering diet
Other medical conditions
Hypertension.
Hyperlipidemia.
Diabetes.
CAD/CABG/AVR.
Cardiomyopathy-EF 20%
ICD June 2025.
JAMES/CPAP intolerant.
Atrial fibrillation on Eliquis.
Abnormal CT abdomen-suggestive of cirrhosis 07/2024
Varicocele repair. Lumbar discectomy 2021. Repair ascending aortic aneurysm/AVR-bovine.
DVT ppx-Heparin(CONTINUE HEPARIN INFUSION FOR NOW TILL THE PULMONARY ARTERY CATHETER REMOVED-as per cards)
HOLD OFF PHYSICAL THERAPY>CAN MOVE FROM BED TO CHAIR VERY CAUTIOUSLY-as per cards
Full code
I reviewed this patients case independently and in conjunction with the resident. I personally examined the patient. Patient's complex medical history, laboratory evaluations, events over the last 24 hours, radiographs, microbiological data were
all personally reviewed.
Agree with documented assessment and plan
Silverio Mars MD, FCCP, [facility]
--- NOTE | 2024-08-24 09:09 | W.PN.NEPH.PH ---
Today's Communication / Plan
-
Milrinone per cardiology
Will escalate Lasix to 80 mg IV 3 times daily
GFR stable
Electrolytes stable
Assessment/Plan
-
74 y/o M, hx of Obesity, HTN, HLD, T2DM, Afib on eliquis, Hx of LBBB, hx of BioAVR and 1 vessel CABG, JAMES not compliance on CPAP, s/p ICD presents to labor conciliator for elective RHC. . He was previously on Lasix, later trialed on Bumex (developed rash)
and now is on Torsemide. Today's RHC showed cardiac index of 1.0 and elevated wedge pressures of 37
renal consult for acute on chronic kidney disease with a baseline creatinine 1.6-1.8 with admitting creatinine 2.2.
Impression:
Acute on chronic kidney disease secondary to cardiorenal
acute CHF status post right heart cath cardiac output severely diminished with ejection fraction 15 to 20%
atrial fibrillation rate controlled
CAD/CHF/ICD
plan:
Creatinine improving to 1.9 in setting of cardiorenal syndrome
Remains hemodynamically labile on inotropic support
Right heart cath reviewed from 08/22/2024 pulmonary capillary wedge pressure 27 cardiac output 4.4 L cardiac index 1.7, SVR 1432
Agree with inotropic support with IV diuresis, urine output around 1500 mL, weights rising,will increase IV lasix to TID 80mg
maintain 5 mg of metolazone daily to augment diuresis
monitor daily weights and urine output with Ross catheter
sodium restriction 2 g
I would not add SGLT2 inhibitor at this time given hypotension with an acute kidney injury
Patient still remains volume overloaded
creatinine on admission 2.2 and remains now at 1.9
no acute need for dialysis and going forward it would be difficult to pursue dialysis if indicated in the setting of severe cardiomyopathy and profound hemodynamic instability and therefore not a candidate
Patient remains critically ill on inotropic support and IV diuresis for decompensated CHF
-
-
Date of Service: August 24, 2024
CC / HPI / ROS
-
Chief Complaint:
Shortness of breath
History of Present Illness:
Acute on chronic kidney disease secondary to CHF improving clinically
Creatinine at 1.9
Hemodynamically labile on inotropic support
Review of Systems:
Improved shortness of breath
Urine output 1500 cc
Nonoliguric via ross
Weight up
Labs
-
Labs:
WBC 9.5 10^3/uL (4.8-10.8) 08/24/24 04:48
RBC 4.58 10^6/uL (4.70-6.10) L 08/24/24 04:48
Hgb 13.3 g/dL (13.0-18.0) 08/24/24 04:48
Hct 41.5 % (39.0-52.0) 08/24/24 04:48
Plt Count 114 10^3/uL (130-400) L 08/24/24 04:48
Sodium 135 mmol/L (135-145) 08/24/24 04:48
Potassium 3.6 mmol/L (3.5-5.1) 08/24/24 04:48
Chloride 95 mmol/L (98-107) L 08/24/24 04:48
Carbon Dioxide 30 mmol/L (22-30) 08/24/24 04:48
BUN 83 mg/dl (9-20) H 08/24/24 04:48
Creatinine 1.9 mg/dL (0.7-1.3) H 08/24/24 04:48
eGFR 36.11 08/24/24 04:48
Glucose 161 mg/dl (70-99) H 08/24/24 04:48
Calcium 8.3 mg/dl (8.4-10.2) L 08/24/24 04:48
Bdw-V-Pudlrusvcia Pept 06551 pg/ml 08/21/24 17:10
Albumin 3.6 g/dl (3.5-5.0) 08/24/24 04:48
Physical Exam
-
Vital Signs:
Vital Signs
Temp Pulse Resp BP Pulse Ox
96.9 F L 91 17 102/57 99
08/24/24 08:47 08/24/24 08:40 08/24/24 06:15 08/24/24 08:40 08/24/24 06:15
Cardiovascular:: Regular rate and rhythm
Respiratory:: Bilateral: Coarse
Lung Excursion:: Normal
Abdomen:: Soft
Bowel Sounds:: Normal
Extremity Edema:: +2: Bilateral: (Anasarca)
Ross Catheter: Yes
--- NOTE | 2024-08-24 10:15 | W.PN.CARDCBS ---
Today's Communication / Plan
-
Discontinue low-dose milrinone
Reassess hemodynamics later today
If patient fails stopping milrinone would try low-dose dobutamine
Agree with nephrology regarding intensification of diuretics but cautiously proceed given right heart dysfunction
Continue guideline directed medical therapy as able. Eventually start carvedilol and start SGLT2 inhibitor
Remains in a high risk situation.
Above plans was communicated with family and patient.
Impression / Plan
-
PCP: Dr. Chintan Gonzalez
Cardiology: Dr. Gabriel
Impression
Acute on chronic HFrEF with cardiogenic shock
JAI
Cardiomyopathy, mixed without improved ejection fraction despite optimal medical therapy
s/p Medtronic biventricular ICD 07/07/2024
LBBB
CAD
s/p bio AVR 2009
Paroxysmal atrial fibrillation
s/p cv 07/23/2023 Chronic AC w/ Eliquis
h/o NSVT
h/o COVID September 2021
HTN
HLD
DM2
JAMES not using CPAP
h/o cough syncope
Radiculopathy
Depression
Ocular migraines
Renal calculi
Arthritis
Lexiscan sestamibi stress test 07/13/2023: Moderate sized medium in severity fixed basal to distal inferior, basal to mid inferoseptal, small mid anterior perfusion defect with no evidence of ischemia. Ejection fraction 21% with severe global
hypokinesis
Cardiac catheterization 03/28/2024: LM: LI. LAD: Moderate to severe diffuse atherosclerotic plaque. D2 has 30% stenosis. Left circumflex: Mid 60 to 70% stenosis. RCA: LI.
HEMODYNAMICS : (mmHg) RA (m) : 22; RV (s/d,m) : 72/14, 24; PA (s/d, m) : 72/34, 50; PCWP (m) : 34, V waves to 53 mmHg; PA saturation: 62.5% on room air; AO saturation: 93.6% on room air;
Cardiac Output : 5.58 L/min; Cardiac Index : 2.23 L/min/m-2; Systemic vascular resistance: 889 dsc^(-5); Pulmonary vascular resistance: 2.87 willams unit; AO (s/d) : 102/61; LV (s/d) : 131/21; LVEDP : 30
Estimated invasive transaortic gradient of 27 mmHg, aortic valve area 1.3 cm�
Significantly elevated right and left-sided filling pressures with severe pulmonary hypertension and normal cardiac output. Borderline low systemic vascular resistance.
[facility] 08/21/24: RA 30, PA 63/38, PCWP 35-42, CO/CI 2.3/0.96, SVR 1880
RHC 08/23/24: RA 15, PA 65/28, PCWP 27, CO/CI 4.47/1.75, PA sat 65.6%, SVR 1432, PVR 3.81
Echo 01/2022: Ejection fraction 40%, global hypokinesis, status post AVR with mean gradient of 10 mmHg
Echo 06/28/2023: Dilated right ventricle with ejection fraction of 20 to 25%, status post bioprosthetic AVR with mean gradient of 15 mmHg, dilated right heart with PA systolic of 45 mmHg
Echo 08/03/2023: Ejection fraction 25 to 30%, hypokinetic septum, apex, inferior, anterior and distal lateral pelletier, mild concentric LVH, moderate MR, status post bioprosthetic AVR with mean gradient of 13 mm hG
Echo 02/16/2024: EF 25%. Global hypokinesis with basal inferior and basal inferolateral akinesis. Stage III diastolic dysfunction. Moderate to severe MR. Severely dilated left atrium. #23 bovine aortic valve with peak/mean gradient 46/29 mmHg.
Mild AI. Mild TR. PAP 35 mmHg
Echo 07/14/2024: EF 25-30% with global hypo, enlarged RV, ICD in place well seated #23 bovine AVR with peak/mean grad of 27/19 mmHg respectively, trace pericardial effusion.
Echo 08/21/24: EF 15-20%, AVR with mean gr 30, PA 30
Plan:
Family at the bedside. Patient in intensive care unit with [place]-Pradeep catheter in place for cardiogenic shock. Patient is being maximized initially with inotropic support which is being weaned and increase in afterload reduction cautiously given LV
dysfunction and right ventricular dysfunction. 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 Discussed with the patient and family at the
bedside.
1. Patient underwent repeat right heart cath and has in place [place]-Pradeep catheter with improved numbers via right IJ. (Today's AM numbers PA 60/26 with RA 19 cardiac output 4.29/cardiac index 1.78. I calculated SVR at 1080.) These numbers were
taken on minimal dose milrinone at 0.125..
2. Repeat limited echocardiogram from this admission showed mean transaortic gradient increased to 30 mmHg from 19 mmHg previously concerning for bioprosthetic stenosis in the setting of known severe cardiomyopathy.
3. Goal for this admission is to resolve cardiogenic shock and improve invasive hemodynamics. Given milrinone at minimal dosing will discontinue. Will reassess hemodynamics by [place]-Pradeep catheter later this afternoon. If hemodynamics stable
without change we will discontinue [place]-Pradeep catheter and Cordis. If patient fails wean of milrinone consider dobutamine. Do feel that right heart dysfunction will limit very aggressive diuresis. This is noted in the last full echo study.
4. Hold on beta-blockers for now but eventually add carvedilol. Continue hydralazine to 37.5 mg 3 times daily and add low-dose nitrate. Continue to reassess for candidacy for LYNDSEY inhibitor/ARB/ARNI/Aldactone. Given fluctuating renal status hold
for now. Agree with nephrology on increasing diuretic.
5. Goal over the next 24 to 48 hours is to be able to wean off milrinone as invasive hemodynamics and cardiac output continues to improve. Eventual addition back of beta-vicky in form of carvedilol as hemodynamics will allow along with Jardiance
based on renal function/GFR and blood pressure.
6. Continue amiodarone and heparin. Consider transition to novel anticoagulant tomorrow.
7. Have discussed with structural team in regards to TAVR workup in the near future as an outpatient. During this admission would plan for MISAEL to visualize valve prior to discharge. Heart catheterization/coronary angiogram as noted above in
March 2024.
8. Continue intensive care unit care.
Discussed all of the above in detail with patient, and daughter at bedside. Discussed with nursing and primary team and outpt software developer consultant.
Critical care time 38-minutes
Progress Note - Director Of Enrollment
Subjective
Date of Service: August 24, 2024
He is very tired he does not feel like he is getting rest. He has lower extremity edema. He denies chest pain and palpitations.
Objective
Labs:
08/24/24 04:48
08/24/24 04:48
Labs
Hgb 13.3 g/dL (13.0-18.0) 08/24/24 04:48
Hct 41.5 % (39.0-52.0) 08/24/24 04:48
Plt Count 114 10^3/uL (130-400) L 08/24/24 04:48
APTT 82.2 Sec (23.4-35.0) H 08/24/24 04:48
Sodium 135 mmol/L (135-145) 08/24/24 04:48
Potassium 3.6 mmol/L (3.5-5.1) 08/24/24 04:48
BUN 83 mg/dl (9-20) H 08/24/24 04:48
Creatinine 1.9 mg/dL (0.7-1.3) H 08/24/24 04:48
Glucose 161 mg/dl (70-99) H 08/24/24 04:48
Vital Signs and I&O:
Vital Signs
Temp Pulse Resp BP Pulse Ox
96.9 F L 91 17 102/57 99
08/24/24 08:47 08/24/24 08:40 08/24/24 06:15 08/24/24 08:40 08/24/24 06:15
Vital Signs
Temp Pulse Resp BP Pulse Ox
96.9 F L 91 17 102/57 99
08/24/24 08:47 08/24/24 08:40 08/24/24 06:15 08/24/24 08:40 08/24/24 06:15
Intake & Output
08/22/24 08/23/24 08/24/24 08/25/24
06:59 06:59 06:59 06:59
Intake Total 617.4 / 633.0 1585.2 / 1612.8 1399.4 / 1399.4
Output Total 3075 / 3150 1760 / 1835 1765 / 1765
Balance -2457.6 / -2517.0 -174.8 / -222.2 -365.6 / -365.6
Physical Exam
Physical Exam
General: Well developed, well nourished in NAD.
Neck: Right IJ catheter in place
Heart: Distant heart sounds regular
Lungs: Coarse anterior breath
Abdomen: distended.
Extremities: No clubbing, cyanosis +1 edema bilaterally.
Neuro: Grossly nonfocal, awake, alert and oriented x3.
[2024-08-24] MEDS: ATIVAN 0.5 MG PO ×2 (10:22→21:11)
--- NOTE | 2024-08-24 10:58 | W.PN.HOSP.TC ---
Today's Communication/Plan
-
off Milrinone
TID Lasix
follow S-G readings and volume status
Assessment / Plan
Assessment / Plan
Assessment:
Acute on chronic heart failure with reduced ejection fraction, EF 25-30%
Cardiomyopathy, mixed without improved ejection fraction despite optimal medical therapy
s/p Medtronic biventricular ICD 07/07/2024
- BNP 17,500
- s/p RHC with Severely elevated right and left-sided filling pressures with severe pulmonary hypertension and severely reduced cardiac output (cardiac index .96) in the setting of elevated systemic vascular resistance. Wedge 35.
- s/p swan Pradeep cath placement 08/22
- s/p Milrinone. If further ionotropic support needed, can consider Dobutamine
- continue IV Lasix, now TID- requires intensive monitoring of weights, lytes, I/Os. metolazone daily.
- sodium/fluid restriction
- hold GDMT therapy for now; Aldactone/BB held. on Hydralazine/Imdur for afterload reduction
- DCA cards following
JAI on CKD stage 3b, acute cardiorenal state
Hyponatremia
- Nephrology following
JAMES not using CPAP at home
- continue nocturnal BIPAP
- Pum following
Hypokalemia, replete as needed
Abdominal distention
- mild ascites on US
LBBB
Hx NSVT
- s/p Medtronic biventricular ICD 07/07/2024
History of atrial fibrillation s/p cv 07/23/2023
- continue Amiodarone
- IV Heparin drip requires intensive monitoring of PTTs; holding Eliquis in case additional support procedures needed for advanced CHF
History of COVID September 2021
HTN
- Aldactone/BB held. on Hydralazine with Cardiology titrating
HLD
- continue statin
DM2
- hold Jardiance
- continue SSI
- A1c: 7.2% recently
CAD s/p 1 vessel CABG 2009
- continue ASA/Statin
s/p bioAVR 2009
H/o Cough syncope
Radiculopathy
Depression - on Zoloft
Ocular migraines
Renal calculi
Arthritis
DVT ppx: IV Heparin
Code: Full code after re-discussed with daughter
Total Critical Care Time 42 minutes. I was immediately available to the patient and staff. I personally examined, reviewed labs, diagnostic images/reports, interpretations, treatment plans, discussed patient care with other providers and family
or caregivers (if patient is unable to make decisions), entered orders as appropriate and documented the medical record.
Anticipated Discharge: > 48 hours
Subjective/Interval History
-
Date of Service: August 24, 2024
no new complaints at present
Lasix increased to TID and Milrinone stopped
Objective Data
-
Labs:
Laboratory Results
08/23/24 08/23/24 08/24/24
23:26 23:33 04:48
WBC 9.5
Hgb 13.3
Hct 41.5
Plt Count 114 L
APTT 82.2 H
Sodium Cancelled Cancelled 135
Potassium Cancelled Cancelled 3.6
Chloride Cancelled Cancelled 95 L
Carbon Dioxide Cancelled Cancelled 30
BUN Cancelled Cancelled 83 H
Creatinine Cancelled Cancelled 1.9 H
Glucose Cancelled Cancelled 161 H
Calcium Cancelled Cancelled 8.3 L
Total Bilirubin 1.2
AST 51
ALT 81 H
Alkaline Phosphatase 71
08/24/24
12:00
WBC
Hgb
Hct
Plt Count
APTT Pending
Sodium
Potassium
Chloride
Carbon Dioxide
BUN
Creatinine
Glucose
Calcium
Total Bilirubin
AST
ALT
Alkaline Phosphatase
Vital Signs:
Vital Signs
Temp Pulse Resp BP Pulse Ox
96.9 F L 91 17 102/57 99
08/24/24 08:47 08/24/24 08:40 08/24/24 06:15 08/24/24 08:40 08/24/24 06:15
I&O
08/23/24 08/24/24 08/25/24
06:59 06:59 06:59
Intake Total 1585.2 / 1612.8 1399.4 / 1399.4
Output Total 1760 / 1835 1765 / 1765
Balance -174.8 / -222.2 -365.6 / -365.6
Physical Exam
-
General: No Apparent Distress
HEENT: Normocephalic, Atraumatic and Other (S-G cath in place)
Cardiac: Regular Rhythm and S1/S2
GI: Soft
Musculoskeletal: Edema, Right Lower Extrem and Edema, Left Lower Extrem
Neuro: AO x 3
Psych: Calm
Data Reviewed
-
Critical Care Time (in minutes): 42
Labs: Labs Reviewed by me
[2024-08-24 11:23] LABS: Glucose - Point of Care 215 mg/dl (70-99)
[2024-08-24] MEDS: MIRALAX 17 GRAMS PO (11:36)
[2024-08-24] MEDS: NOVOLOG FLEXPEN-HIGH RESISTANCE 4 UNITS SC (11:36)
[2024-08-24] MEDS: SENOKOT-S 1 TABLET PO (11:36)
--- NOTE | 2024-08-24 12:00 | PTCARENOTE ---
pt anxious and agitated , restless , family at bedside , emotional support given , Ativan given at 1030
--- NOTE | 2024-08-24 12:39 | CM ---
CM following re: discharger planning.
Discussed in Rounds, reviewed pt's chart, met with pt. Cardiology and nephrology following.
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
PT and OT will evaluate the pt to determine a level of care at discharge.
D/C plan: home with most likely VN services. PT and OT to confirm
CM will follow with discharge plan updates as hospitalization progresses
--- NOTE | 2024-08-24 13:40 | W.PN.UPDATE ---
Update Note
Progress Note Update
Although hemodynamics are variable off of 0.125 mg of milrinone PA pressures are starting to creep up a little bit. He has only been off of milrinone a few hours. Agree with current dose of Lasix per nephrology. Will start dobutamine 3 mcg/kg/min
and follow.
[2024-08-24] MEDS: DOBUTREX 500 MG 250 IV (14:19)
[2024-08-24] MEDS: HEPARIN 25000 UNITS/250 ML IV (14:33)
[2024-08-24] MEDS: CRESTOR 10 MG PO (16:32)
[2024-08-24] MEDS: NOVOLOG FLEXPEN-HIGH RESISTANCE 7 UNITS SC (16:33)
[2024-08-24 16:42] LABS: Glucose - Point of Care 280 mg/dl (70-99)
--- NOTE | 2024-08-24 18:25 | PTCARENOTE ---
pt off of Primacor gtt since 929 and started on Dobutamine gtt at 3mcg/kg , pt cardiac output 4.33 and index 1.79 at 1600 with Dobutamine gtt, pt tolerating diet , less anxious than earlier
[2024-08-24 20:05] LABS: Blood Urea Nitrogen 78 mg/dl (9-20); Calcium 8.2 mg/dl (8.4-10.2); Carbon Dioxide 28 mmol/L (22-30); Chloride 94 mmol/L (98-107); Estimated Creatinine Clearance 45 ml/min; Glucose 292 mg/dl (70-99); Magnesium 2.5 mg/dl (1.6-2.3); Potassium 4.2 mmol/L (3.5-5.1); Sodium 133 mmol/L (135-145); eGFR 36.11
[2024-08-24 20:45] LABS: APTT 95.1 Sec (23.4-35.0)
[2024-08-24] MEDS: ZOLOFT 50 MG PO (21:11)
[2024-08-24] MEDS: XALATAN OPHTHALMIC SOLUTION 1 DROP RIGHT EYE (21:11)
--- NOTE | 2024-08-24 21:19 | PTCARENOTE ---
Assumed care of pt at 1900. Pt is A/O x4, no c/o pain. Received pt on Dobutamine drip at 3mcg/kg/min and Heparin drip at 1200 units/hr. Pt with [place] Pradeep catheter in place, C.O. and C.I. calculations being done Q4 hours. V paced on monitor with HR
in 80s-90s, SpO2 97-98% on 4LNC. CVP consistently reading 19-21, BP via right radial arterial line. Physical assessment done, see nursing shift assessment flowsheet for full physical assessment details. Call alvarez and personal items within reach.
[2024-08-24 21:43] LABS: Glucose - Point of Care 263 mg/dl (70-99)
[2024-08-24] MEDS: LANTUS 0.15 UNITS SC (21:58)
[2024-08-24] MEDS: NOVOLOG FLEXPEN 4 UNITS SC (21:59)
--- NOTE | 2024-08-25 01:03 | PTCARENOTE ---
Midnight assessment unchanged. Remains on Dobutamine and Heparin drips. Pt given po Ativan at bedtime, has been resting with eyes closed. V Paced on monitor. SpO2 98% on 4LNC.
[2024-08-25 03:37] LABS: Hemoglobin 13.5 g/dL (13.0-18.0); Mean Corp Hgb Conc. 32.1 g/dL (33.0-37.0); Mean Corpuscular Volume 90.1 fL (80.0-94.0); Mean Platelet Volume 11.2 fL (7.4-10.4); Platelet Count 94 10^3/uL (130-400); Red Blood Cell Count 4.66 10^6/uL (4.70-6.10); Red Cell Dist. Width 15.6 % (11.5-14.5); White Blood Cell Count 7.8 10^3/uL (4.8-10.8)
[2024-08-25 03:40] LABS: APTT 100.1 Sec (23.4-35.0)
[2024-08-25 04:06] LABS: ALT (SGPT) 77 U/L (0-50); AST (SGOT) 56 U/L (17-59); Albumin 3.7 g/dl (3.5-5.0); Alkaline Phosphatase 67 U/L (38-126); Blood Urea Nitrogen 80 mg/dl (9-20); Calcium 8.2 mg/dl (8.4-10.2); Carbon Dioxide 30 mmol/L (22-30); Chloride 96 mmol/L (98-107); Estimated Creatinine Clearance 45 ml/min; Glucose 201 mg/dl (70-99); Sodium 134 mmol/L (135-145); Total Bilirubin 1.2 mg/dl (0.2-1.3); eGFR 36.11
[2024-08-25 04:43] VITALS: BMI 36.8
--- NOTE | 2024-08-25 05:58 | PTCARENOTE ---
Assessment unchanged. Pt remains on Dobutamine and Heparin drips. CHG cloth bath done and linens changed. V Paced on monitor.
--- NOTE | 2024-08-25 07:42 | W.PN.INTV ---
Today's Communication / Plan
Recommendations
Continue diuresis
Continue inotropes
Pulmonary artery catheter continues per cardiology
Adjust insulin
Assessment
-
74-year-old obese occasional cigar smoking male with a history of hypertension, hyperlipidemia, CAD/CABG, diabetes, atrial fibrillation and JAMES/CPAP intolerant recently had AICD placed with subsequent history of difficult to control CHF underwent
elective right heart catheterization noted to have severely elevated filling pressures with low cardiac index necessitating ICU/pulmonary artery catheter/inotropes-inventory technician consulted for CHF/critical care management 08/22/2024.
CHF-acute on top of chronic with reduced EF
Cardiomyopathy status post recent biventricular ICD 07/07/2024
JAI
Hyperglycemia
Hypocalcemia
Elevated LFTs
Pleural effusion
Conditions present prior to admission:
Hypertension.
Hyperlipidemia.
Diabetes.
CAD/CABG/AVR.
Cardiomyopathy-EF 20%
ICD June 2025.
JAMES/CPAP intolerant.
Atrial fibrillation on Eliquis.
Abnormal CT abdomen-suggestive of cirrhosis 07/2024
Varicocele repair. Lumbar discectomy 2021. Repair ascending aortic aneurysm/AVR-bovine.
Plan
Patient critically ill and admitted to ICU to obtain pulmonary artery catheter, inotropes, diuresis-extensive cardiac and pulmonary workup summarized below
Supplemental oxygen as needed
Incentive spirometry
CPAP or BiPAP at night as tolerated-in the past has been intolerant-willing to use
Aspiration precautions
Nebulizers if needed-currently not bronchospastic
Prednisone taper-was not for pulmonary-had rash possibly Bumex related as an outpatient
Cardiology following-correspondence reviewed
Right heart catheterization results reviewed-significantly elevated filling pressures with low cardiac index-C 08/21/24: RA 30, PA 63/38, PCWP 35-42, CO/CI 2.3/0.96, SVR 1880
Pulmonary artery catheter placement-08/22/2024-improvement in cardiac index
Continue to measure pulmonary artery parameters-cardiac index improved
Continue diuresis as tolerated-intensify per nephrology
Inotropes continue-currently on milrinone- changed to dobutamine
Monitor renal function, electrolytes, intake/output, lower extremity edema and weight
Replace electrolytes as needed
Amiodarone continues as well
Heparin drip continues-Eliquis on hold--eventual change back
Eventually start carvedilol and start SGLT2 inhibitor
Monitor renal function
Replace electrolytes
Acute cardiorenal state
Nephrology following-correspondence reviewed
Monitor ascites-not enough fluid for diagnostic or therapeutic paracentesis
Abdominal ultrasound summarized below
Monitor liver functions
Consider GI evaluation for questionable cirrhosis
Monitor MSAS-no signs of withdrawal
Alcohol withdrawal treatment protocol if indicated
Ativan as needed
Monitor blood sugar-still elevated despite prednisone discontinuation
Insulin supplementation as needed
Last saw Dr. Mars/Gabrielle Macario CNP on 11/29/2023
Reviewed with as well as daughter at the bedside 08/22/2024, 08/23/2024, 08/24/2024, 08/25/2023
Critical care statement: A total of 40 minutes of critical care time was provided for this patient today. This includes management of unstable vital signs, evaluation of the patient at bedside, reviewing the patient's pertinent medical records
including radiographs, pressor and inotrope management, diuresis management, microbiology, laboratory evaluations, and discussion with primary team, consultants, pharmacy, nutrition, physical therapy, case management, charge nurse, critical care
nursing, and respiratory therapy.
Diagnostic data:
CXR 10/01/21: cardiomegaly with slightly prominent pulmonary vascularity which could represent mild CHF vs atypical acute pulmonary edema. possible left basilar patchy opacity such as pna������
��
Chest x-ray 12/10/21-NAD
Chest x-ray 08/22/2024-no acute disease in the chest, cardiomegaly, waterbed configuration
CT Chest 09/29/21: no PE. small bilateral pleural effusions. mild peripheral ground glass densities in lower lung zones b/l suggesting mild residual pna.��
CT chest 07/11/23-no pulmonary embolism, minimal right pleural effusion, minimal pleural thickening left hemithorrax, no adenopathy or nodules.
CT chest 07/31/2024-small right pleural effusion, moderate ascites, liver contour appears to be subtly nodular suggestive of cirrhosis, basilar atelectasis
Abdominal ultrasound 08/22/2024-moderate ascites, slightly progressed, moderate right pleural effusion
US BLE 10/01/21: negative for DVT������������������
ECHO 08/11/21: ischemic heart disease with mildly reduced systolic function. LV EF 40-45%. moderate LVH. RV base mildly enlarged. Tricuspid and mitral regurgitation. s/p bioprosthetic aortic valve prosthesis.�������
Nuclear stress test 06/12/21-EF 25%, moderate risk study�������
Echocardiogram 06/28/23-EF 20-25%, stage II diastolic dysfunction, bioprosthetic aortic valve, PA systolic 45, rhythm atrial fibrillation�������
Stress test 07/13/23-revealed a moderate in size, medium severity fixed basal to distal inferior and inferoseptal perfusion defect, EF 21%, overall high risk study.�������
Echo 02/16/2024: EF 25%. Global hypokinesis with basal inferior and basal inferolateral akinesis. Stage III diastolic dysfunction. Moderate to severe MR. Severely dilated left atrium. #23 bovine aortic valve with peak/mean gradient 46/29 mmHg.
Mild AI. Mild TR. PAP 35 mmHg
Echo 07/14/2024: EF 25-30% with global hypo, enlarged RV, ICD in place well seated #23 bovine AVR with peak/mean grad of 27/19 mmHg respectively, trace pericardial effusion.
Echo 08/21/24: EF 15-20%, AVR with mean gr 30, PA 30
Cardioversion 07/23/23-successful cardioversion from atrial fibrillation to sinus rhythm.
Cardiac catheterization 03/28/2024: LM: LI. LAD: Moderate to severe diffuse atherosclerotic plaque. D2 has 30% stenosis. Left circumflex: Mid 60 to 70% stenosis. RCA: LI.
HEMODYNAMICS : (mmHg) RA (m) : 22; RV (s/d,m) : 72/14, 24; PA (s/d, m) : 72/34, 50; PCWP (m) : 34, V waves to 53 mmHg; PA saturation: 62.5% on room air; AO saturation: 93.6% on room air;
Cardiac Output : 5.58 L/min; Cardiac Index : 2.23 L/min/m-2; Systemic vascular resistance: 889 dsc^(-5); Pulmonary vascular resistance: 2.87 willams unit; AO (s/d) : 102/61; LV (s/d) : 131/21; LVEDP : 30
Estimated invasive transaortic gradient of 27 mmHg, aortic valve area 1.3 cm�
Significantly elevated right and left-sided filling pressures with severe pulmonary hypertension and normal cardiac output. Borderline low systemic vascular resistance.
PFT 12/19/21-FEV1 2.55-72%, FVC 3.77 L-70%, no significant response, TLC 80%, 90%, DLCO 64%. Mild obstruction and moderate reduction in diffusing capacity.�������
Spirometry 07/29/23-FEV1 1.18-34%, FVC 1.5-39%, no significant BD response. Severe obstruction.
Subjective Dataa
Subjective Data
Date of Service:
Date of Service: August 25, 2024
Chief Complaint: Manager Programming Follow Up and Pulmonary Follow Up
Subjective:
Slept better, no complaints of shortness of breath at rest, chest pain, productive cough, abdominal pain
Review of Systems
General: Other (Per HPI)
Objective Data
Data Reviewed
Vital Signs / I&O / Oxygen:
Vital Signs
Temp Pulse Resp BP Pulse Ox
95.8 F L 86 19 105/62 94
08/25/24 07:34 08/25/24 06:00 08/25/24 06:00 08/24/24 22:02 08/25/24 06:00
Intake and Output
08/24/24 08/25/24 08/26/24
06:59 06:59 06:59
Intake Total 1399.4 / 1424.0 2158.5 / 2158.5
Output Total 1765 / 1815 1775 / 1775
Balance -365.6 / -391.0 383.5 / 383.5
SaO2 94
Nasal Cannula flow liters per 4
minute
Physical Exam
General: Respiratory Distress (n), Comfortable and Other (Well developed, well nourished, )
HEENT: Normocephalic, Anicteric and Other (on 4 liters of oxygen)
Cardiovascular: Regular Rhythm and Other (No rubs or murmurs)
Respiratory: Wheeze (n), Crackles (Basilar), Rhonchi (n), Non-Labored Respirations, Accessory Resp Muscle Use (n) and Stridor (n)
GI: Soft, Distended (mildly), Non Tender and Normal Bowel Sounds
Neurology: Awake, Alert and No Motor Deficits
Skin: Warm, Good Color, Cyanosis (n) and Jaundice (n)
Labs/Micro/Reports
Lab Data
08/25/24 03:15
08/25/24 03:15
Laboratory Results
08/24/24 08/24/24 08/25/24
12:22 20:28 03:15
APTT 62.0 H 95.1 H 100.1 H
[2024-08-25] MEDS: NOVOLOG FLEXPEN-HIGH RESISTANCE 2 UNITS SC (08:25)
[2024-08-25] MEDS: LASIX 80 MG IV ×3 (08:26→22:44)
[2024-08-25 08:27] LABS: Glucose - Point of Care 156 mg/dl (70-99)
[2024-08-25] MEDS: ASPIR LOW (ENTERIC COATED) 81 MG PO (08:29)
[2024-08-25] MEDS: ZAROXOLYN 5 MG PO (08:29)
[2024-08-25] MEDS: IMDUR (EXTENDED RELEASE) 30 MG PO (08:29)
[2024-08-25] MEDS: APRESOLINE 37.5 MG PO ×2 (08:30→15:49)
[2024-08-25] MEDS: PACERONE 200 MG PO (08:30)
--- NOTE | 2024-08-25 10:01 | W.PN.CARDCBS ---
Addendum entered and electronically signed by Kim Jacobs PA-C 08/25/24 16:45:
called and updated patient's Ana via telephone for 4:38.
Original Note:
Today's Communication / Plan
-
Continue dobutamine for inotropic support
Still significantly volume overloaded, will need further diuresis, appreciate nephrology input regarding diuretic dosing
Hydralazine/nitrate for afterload reduction
Hold off on ARB/ARNI until renal function stabilizes
Impression / Plan
-
PCP: Dr. Chintan Gonzalez
Cardiology: Dr. Gabriel
Impression
Acute on chronic HFrEF with cardiogenic shock
JAI
Cardiomyopathy, mixed without improved ejection fraction despite optimal medical therapy
s/p [employer] biventricular ICD 07/07/2024
LBBB
CAD
s/p bio AVR 2009
Paroxysmal atrial fibrillation
s/p cv 07/23/2023 Chronic AC w/ Eliquis
h/o NSVT
h/o COVID September 2021
HTN
HLD
DM2
JAMES not using CPAP
h/o cough syncope
Radiculopathy
Depression
Ocular migraines
Renal calculi
Arthritis
Lexiscan sestamibi stress test 07/13/2023: Moderate sized medium in severity fixed basal to distal inferior, basal to mid inferoseptal, small mid anterior perfusion defect with no evidence of ischemia. Ejection fraction 21% with severe global
hypokinesis
Cardiac catheterization 03/28/2024: LM: LI. LAD: Moderate to severe diffuse atherosclerotic plaque. D2 has 30% stenosis. Left circumflex: Mid 60 to 70% stenosis. RCA: LI.
HEMODYNAMICS : (mmHg) RA (m) : 22; RV (s/d,m) : 72/14, 24; PA (s/d, m) : 72/34, 50; PCWP (m) : 34, V waves to 53 mmHg; PA saturation: 62.5% on room air; AO saturation: 93.6% on room air;
Cardiac Output : 5.58 L/min; Cardiac Index : 2.23 L/min/m-2; Systemic vascular resistance: 889 dsc^(-5); Pulmonary vascular resistance: 2.87 willams unit; AO (s/d) : 102/61; LV (s/d) : 131/21; LVEDP : 30
Estimated invasive transaortic gradient of 27 mmHg, aortic valve area 1.3 cm�
Significantly elevated right and left-sided filling pressures with severe pulmonary hypertension and normal cardiac output. Borderline low systemic vascular resistance.
RHC 08/21/24: RA 30, PA 63/38, PCWP 35-42, CO/CI 2.3/0.96, SVR 1880
RHC 08/23/24: RA 15, PA 65/28, PCWP 27, CO/CI 4.47/1.75, PA sat 65.6%, SVR 1432, PVR 3.81
Echo 01/2022: Ejection fraction 40%, global hypokinesis, status post AVR with mean gradient of 10 mmHg
Echo 06/28/2023: Dilated right ventricle with ejection fraction of 20 to 25%, status post bioprosthetic AVR with mean gradient of 15 mmHg, dilated right heart with PA systolic of 45 mmHg
Echo 08/03/2023: Ejection fraction 25 to 30%, hypokinetic septum, apex, inferior, anterior and distal lateral pelletier, mild concentric LVH, moderate MR, status post bioprosthetic AVR with mean gradient of 13 mm hG
Echo 02/16/2024: EF 25%. Global hypokinesis with basal inferior and basal inferolateral akinesis. Stage III diastolic dysfunction. Moderate to severe MR. Severely dilated left atrium. #23 bovine aortic valve with peak/mean gradient 46/29 mmHg.
Mild AI. Mild TR. PAP 35 mmHg
Echo 07/14/2024: EF 25-30% with global hypo, enlarged RV, ICD in place well seated #23 bovine AVR with peak/mean grad of 27/19 mmHg respectively, trace pericardial effusion.
Echo 08/21/24: EF 15-20%, AVR with mean gr 30, PA 30
Plan:
-Patient in intensive care unit with [place]-Pradeep catheter in place for cardiogenic shock
-Cardiogenic shock seems to be a combination of progressive heart failure/LV dysfunction and also likely progressive bioprosthetic aortic valve stenosis.
-Warm and wet profile based on exam
-Filling pressure remains severely elevated by invasive hemodynamics
-Continue aggressive IV diuresis with lasix/metolazone, appreciate nephrology input
-Continue dobutamine to augment cardiac output, 4.5 L/min this AM
-Cont hydralazine/nitrate for afterload reduction - consider Entresto when renal function stabilizes
-Hold off on BB in the setting of shock, would eventually reintroduce
-Cont amio/heparin for h/o atrial fibrillation
-Will likely need TAVR workup in the near future. Consider MISAEL prior to discharge when he is more compensated.
Critical care time 32-minutes
Progress Note - Forest[employer] Specialist
Subjective
Date of Service: August 25, 2024
NAOE. Remains in ICU on dobutamine.
Tells me breathing is improved. Still requiring 4L NC.
No chest discomfort.
Objective
Labs:
08/25/24 03:15
08/25/24 03:15
Labs
Hgb 13.5 g/dL (13.0-18.0) 08/25/24 03:15
Hct 42.0 % (39.0-52.0) 08/25/24 03:15
Plt Count 94 10^3/uL (130-400) L 08/25/24 03:15
APTT 100.1 Sec (23.4-35.0) H 08/25/24 03:15
Sodium 134 mmol/L (135-145) L 08/25/24 03:15
Potassium 4.0 mmol/L (3.5-5.1) 08/25/24 03:15
BUN 80 mg/dl (9-20) H 08/25/24 03:15
Creatinine 1.9 mg/dL (0.7-1.3) H 08/25/24 03:15
Glucose 201 mg/dl (70-99) H 08/25/24 03:15
Vital Signs and I&O:
Vital Signs
Temp Pulse Resp BP Pulse Ox
95.8 F L 83 19 107/59 94
08/25/24 07:34 08/25/24 08:30 08/25/24 06:00 08/25/24 08:30 08/25/24 06:00
Vital Signs
Temp Pulse Resp BP Pulse Ox
95.8 F L 83 19 107/59 94
08/25/24 07:34 08/25/24 08:30 08/25/24 06:00 08/25/24 08:30 08/25/24 06:00
Intake & Output
08/23/24 08/24/24 08/25/24 08/26/24
06:59 06:59 06:59 06:59
Intake Total 1585.2 / 1612.8 1399.4 / 1424.0 2158.5 / 2158.5
Output Total 1760 / 1835 1765 / 1815 1775 / 1775
Balance -174.8 / -222.2 -365.6 / -391.0 383.5 / 383.5
Physical Exam
Physical Exam
Gen: NAD, AAOx3
HEENT: NC/AT, sclera anicteric
Neck: RIJ [place] in place
CV: RRR, distant heart sounds
Lungs: No increase WOB on 4L NC
Abd: distended
Ext: 2+ pitting LE edema
Skin: Warm, dry
Neuro: Non-focal
--- NOTE | 2024-08-25 10:38 | PTCARENOTE ---
pt slept well overnight , less anxiety today , V paced on monitor , continues with Pa cath and dobutamine gtt , cardiac output this am 4.29 , index 1.77 , 2158 input over 24 hours , 1775 output , 1.7 kg increase in weight gain since admission to ICU
, no signs of Resp distress , continues on IV anticoagulation , monitoring electrolytes , potassium today 4.0 creatinine 1.9 today , baseline is 1.6-1.8 , pt participated in ICU rounds
--- NOTE | 2024-08-25 11:08 | W.PN.INTV ---
Documented by User: Steph Victoria MD, Resident 08/25/24 11:18
Today's Communication / Plan
Recommendations
Add bowel regimen
Consider adding a potassium supplement
continue to monitor pressures and renal function
Once off the pulmonary artery catheter can consider shifting to oral anticoagulation and physical therapy
Assessment
-
Impression
Mr Carrera is a 74-year-old male with a history of hypertension, hyperlipidemia, CAD/CABG, diabetes, atrial fibrillation and JAMES/CPAP intolerant , AICD in place with subsequent worsening shortness of breath ,underwent elective right heart
catheterization that showed severely elevated filling pressures with low cardiac index necessitating pulmonary artery catheter placement.
Assessment
Acute on chronic with reduced EF(15-20%)
Acute on chronic kidney disease secondary to cardiorenal syndrome
Hyperglycemia
Mild abdominopelvic ascites/pleural effusion
Constipation
Plan
Acute on chronic with reduced EF(15-20%)
Extensive cardiac history including a CABG/AICD placed in 06/2024 and atrial fibrillation
Cardiomyopathy-EF 20%
Right heart catheterization results 08/21/2024-significantly elevated filling pressures with low cardiac index-[facility] 08/21/24: RA 30, PA 63/38, PCWP 35-42, CO/CI 2.3/0.96, SVR 1880
08/22/2024-Improvement in RIGHT SIDED PRESSURES AND CARDIAC OUTPUT/INDEX
Cardiology consult appreciated
Continue to measure pulmonary artery pressures(diastolic PA pressure ranging from 22-30)
Off milrinone,labile hemodynamics,started on dobutamine
As per cards -continue to monitor pressures,Continue guideline directed medical therapy as able. Eventually start carvedilol and start SGLT2 inhibitor
Continue diuresis as tolerated-considering Right heart dysfunction
Patient improving clinically with significant improvement in pedal edema although no significant weight changes
Atrial fibrillation-Continue amiodarone as per cards
Continue heparin infusion till the pulmonary artery catheter is in place
Baseline potassium addition since on intensive diuresis?
Acute on chronic kidney disease secondary to cardiorenal syndrome
Creatinine remains unchanged although right sided pressures in heart are improving
Nephrology consult appreciated- Agree with inotropic support with IV diuresis,added metazolone yesterday Total [id number] mLTotal [id number] mLBalance-141.0mL
As per Nephro--Intensify diuresis
continue to trend I/O,daily output
Patient creatinine started to go down,currently stable at 1.9
continue to trend and keep in mind the heart failure aspect while increasing the diuresis
Hyperglycemia
Patient has blood sugar readings >180 since last 2 days
HbA1c 7.2,07/14/2024
Insulin resistance on sliding scale changed to high
Lantus 15 units added at night,continue to monitor and titrate up as needed
Monitor blood sugar levels
Mild abdominopelvic ascites/pleural effusion
Abdominal ultrasound showed mild abdominopelvic ascites 08/22/2024
FINDINGS: There is mild abdominopelvic ascites. The largest pocket is in the lateral left lower quadrant.
There is a moderate right pleural effusion.
Monitor liver functions
Consider GI evaluation for ascites and elevated lfts
ANXIETY
Continue zoloft
Ativan as needed
Patient feeling better
CONSTIPATION
Stat Glycerin suppository
Scheduled Sennakot-S and Miralax
Systemic review
Awake and alert
Currently on 3 liters of oxygen
off ionotropes-can continue if needed for diuresis
On diabetic diet
Other medical conditions
Hypertension.
Hyperlipidemia.
Diabetes.
CAD/CABG/AVR.
Cardiomyopathy-EF 20%
ICD June 2025.
JAMES/CPAP intolerant.
Atrial fibrillation on Eliquis.
Abnormal CT abdomen-suggestive of cirrhosis 07/2024
Varicocele repair. Lumbar discectomy 2021. Repair ascending aortic aneurysm/AVR-bovine.
DVT ppx-Heparin(CONTINUE HEPARIN INFUSION FOR NOW TILL THE PULMONARY ARTERY CATHETER REMOVED-as per cards)
HOLD OFF PHYSICAL THERAPY>CAN MOVE FROM BED TO CHAIR VERY CAUTIOUSLY-as per cards
Full code
Subjective Dataa
Subjective Data
Date of Service:
Date of Service: August 25, 2024
Chief Complaint: Investment Professional Follow Up and Pulmonary Follow Up
Subjective:
Patient slept well last night,eating 100 percent meals,did not have a bowel movement since admission
Patient is in good spirits today
Review of Systems
General: Other (Reviewed and negative)
Objective Data
Data Reviewed
Vital Signs / I&O / Oxygen:
Vital Signs
Temp Pulse Resp BP Pulse Ox
95.8 F L 94 19 107/59 97
08/25/24 08:00 08/25/24 10:00 08/25/24 10:00 08/25/24 08:30 08/25/24 10:00
Intake and Output
08/24/24 08/25/24 08/26/24
06:59 06:59 06:59
Intake Total 1399.4 / 1424.0 2158.5 / 2191.6 532.4 / 532.4
Output Total 1765 / 1815 1775 / 1850 150 / 150
Balance -365.6 / -391.0 383.5 / 341.6 382.4 / 382.4
SaO2 97
Nasal Cannula flow liters per 4
minute
Physical Exam
General: Comfortable and Other (Well developed, well nourished, bilateral pedal edema)
HEENT: Normocephalic, Anicteric and Other (on 4 liters of oxygen)
Cardiovascular: S1-S2, Regular Rhythm and Other (No rubs or murmurs)
Respiratory: Wheeze and Non-Labored Respirations
GI: Soft, Distended (mildly), Non Tender and Normal Bowel Sounds
Neurology: Awake, Alert and No Motor Deficits
Skin: Warm and Good Color
Labs/Micro/Reports
Lab Data
08/25/24 03:15
08/25/24 03:15
Laboratory Results
08/24/24 08/24/24 08/25/24
12:22 20:28 03:15
APTT 62.0 H 95.1 H 100.1 H

Documented by User: Silverio Mars MD 08/25/24 11:59
Assessment
-
Impression
Mr Carrera is a 74-year-old male with a history of hypertension, hyperlipidemia, CAD/CABG, diabetes, atrial fibrillation and JAMES/CPAP intolerant , AICD in place with subsequent worsening shortness of breath ,underwent elective right heart
catheterization that showed severely elevated filling pressures with low cardiac index necessitating pulmonary artery catheter placement.
Assessment
Acute on chronic with reduced EF(15-20%)
Acute on chronic kidney disease secondary to cardiorenal syndrome
Hyperglycemia
Mild abdominopelvic ascites/pleural effusion
Constipation
Plan
Acute on chronic with reduced EF(15-20%)
Extensive cardiac history including a CABG/AICD placed in 06/2024 and atrial fibrillation
Cardiomyopathy-EF 20%
Right heart catheterization results 08/21/2024-significantly elevated filling pressures with low cardiac index-[facility] 08/21/24: RA 30, PA 63/38, PCWP 35-42, CO/CI 2.3/0.96, SVR 1880
08/22/2024-Improvement in RIGHT SIDED PRESSURES AND CARDIAC OUTPUT/INDEX
Cardiology consult appreciated
Continue to measure pulmonary artery pressures(diastolic PA pressure ranging from 22-30)
Off milrinone,labile hemodynamics,started on dobutamine
As per cards -continue to monitor pressures,Continue guideline directed medical therapy as able. Eventually start carvedilol and start SGLT2 inhibitor
Continue diuresis as tolerated-considering Right heart dysfunction
Patient improving clinically with significant improvement in pedal edema although no significant weight changes
Atrial fibrillation-Continue amiodarone as per cards
Continue heparin infusion till the pulmonary artery catheter is in place
Baseline potassium addition since on intensive diuresis?
Acute on chronic kidney disease secondary to cardiorenal syndrome
Creatinine remains unchanged although right sided pressures in heart are improving
Nephrology consult appreciated- Agree with inotropic support with IV diuresis,added metazolone yesterday Total [id number] mLTotal [id number] mLBalance-141.0mL
As per Nephro--Intensify diuresis
continue to trend I/O,daily output
Patient creatinine started to go down,currently stable at 1.9
continue to trend and keep in mind the heart failure aspect while increasing the diuresis
Hyperglycemia
Patient has blood sugar readings >180 since last 2 days
HbA1c 7.2,07/14/2024
Insulin resistance on sliding scale changed to high
Lantus 15 units added at night,continue to monitor and titrate up as needed
Monitor blood sugar levels
Mild abdominopelvic ascites/pleural effusion
Abdominal ultrasound showed mild abdominopelvic ascites 08/22/2024
FINDINGS: There is mild abdominopelvic ascites. The largest pocket is in the lateral left lower quadrant.
There is a moderate right pleural effusion.
Monitor liver functions
Consider GI evaluation for ascites and elevated lfts
ANXIETY
Continue zoloft
Ativan as needed
Patient feeling better
CONSTIPATION
Stat Glycerin suppository
Scheduled Sennakot-S and Miralax
Systemic review
Awake and alert
Currently on 3 liters of oxygen
off ionotropes-can continue if needed for diuresis
On diabetic diet
Other medical conditions
Hypertension.
Hyperlipidemia.
Diabetes.
CAD/CABG/AVR.
Cardiomyopathy-EF 20%
ICD June 2025.
JAMES/CPAP intolerant.
Atrial fibrillation on Eliquis.
Abnormal CT abdomen-suggestive of cirrhosis 07/2024
Varicocele repair. Lumbar discectomy 2021. Repair ascending aortic aneurysm/AVR-bovine.
DVT ppx-Heparin(CONTINUE HEPARIN INFUSION FOR NOW TILL THE PULMONARY ARTERY CATHETER REMOVED-as per cards)
HOLD OFF PHYSICAL THERAPY>CAN MOVE FROM BED TO CHAIR VERY CAUTIOUSLY-as per cards
Full code
I reviewed this patients case independently and in conjunction with the resident. I personally examined the patient. Patient's complex medical history, laboratory evaluations, events over the last 24 hours, radiographs, microbiological data were
all personally reviewed.
Agree with documented assessment and plan
Silverio Mars MD, FCCP, DAB
--- NOTE | 2024-08-25 12:05 | W.PN.NEPH.PH ---
Today's Communication / Plan
-
Continue IV diuretics inotropic support
Assessment/Plan
-
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 . He was previously on Lasix, later trialed on Bumex (developed rash)
and now is on Torsemide. Today's RHC showed cardiac index of 1.0 and elevated wedge pressures of 37
renal consult for acute on chronic kidney disease with a baseline creatinine 1.6-1.8 with admitting creatinine 2.2.
Impression:
Acute on chronic kidney disease secondary to cardiorenal
acute CHF status post right heart cath cardiac output severely diminished with ejection fraction 15 to 20%
atrial fibrillation rate controlled
CAD/CHF/ICD
plan:
Creatinine improving to 1.9 in setting of cardiorenal syndrome
Remains hemodynamically labile on inotropic support
Right heart cath reviewed from 08/22/2024 pulmonary capillary wedge pressure 27 cardiac output 4.4 L cardiac index 1.7, SVR 1432
Agree with inotropic support with IV diuresis, IV lasix to TID 80mg
maintain 5 mg of metolazone daily to augment diuresis
monitor daily weights and urine output with Ross catheter
sodium restriction 2 g
I would not add SGLT2 inhibitor at this time given hypotension with an acute kidney injury
Patient still remains volume overloaded
creatinine on admission 2.2 and remains now at 1.9
no acute need for dialysis and going forward it would be difficult to pursue dialysis if indicated in the setting of severe cardiomyopathy and profound hemodynamic instability and therefore not a candidate
Patient remains critically ill on inotropic support and IV diuresis for decompensated CHF
Discussed with family at the bedside today
Unfortunately today he was positive despite increasing diuretics yesterday
Continue to monitor for now
-
-
Date of Service: August 25, 2024
CC / HPI / ROS
-
Chief Complaint:
Shortness of breath
History of Present Illness:
Acute on chronic kidney disease secondary to CHF improving clinically
Creatinine at 1.9
Hemodynamically labile on inotropic support
Review of Systems:
Improved shortness of breath
Urine output 1500 cc
Nonoliguric via ross
Weight up
Labs
-
Labs:
WBC 7.8 10^3/uL (4.8-10.8) 08/25/24 03:15
RBC 4.66 10^6/uL (4.70-6.10) L 08/25/24 03:15
Hgb 13.5 g/dL (13.0-18.0) 08/25/24 03:15
Hct 42.0 % (39.0-52.0) 08/25/24 03:15
Plt Count 94 10^3/uL (130-400) L 08/25/24 03:15
Sodium 134 mmol/L (135-145) L 08/25/24 03:15
Potassium 4.0 mmol/L (3.5-5.1) 08/25/24 03:15
Chloride 96 mmol/L (98-107) L 08/25/24 03:15
Carbon Dioxide 30 mmol/L (22-30) 08/25/24 03:15
BUN 80 mg/dl (9-20) H 08/25/24 03:15
Creatinine 1.9 mg/dL (0.7-1.3) H 08/25/24 03:15
eGFR 36.11 08/25/24 03:15
Glucose 201 mg/dl (70-99) H 08/25/24 03:15
Calcium 8.2 mg/dl (8.4-10.2) L 08/25/24 03:15
Gps-E-Rjvdnnjncey Pept 75787 pg/ml 08/21/24 17:10
Albumin 3.7 g/dl (3.5-5.0) 08/25/24 03:15
Physical Exam
-
Vital Signs:
Vital Signs
Temp Pulse Resp BP Pulse Ox
96.3 F L 94 19 107/59 97
08/25/24 11:18 08/25/24 10:00 08/25/24 10:00 08/25/24 08:30 08/25/24 10:00
Cardiovascular:: Regular rate and rhythm
Respiratory:: Bilateral: Coarse
Lung Excursion:: Normal
Abdomen:: Soft
Bowel Sounds:: Normal
Extremity Edema:: +2: Bilateral: (Anasarca)
Ross Catheter: Yes
--- NOTE | 2024-08-25 12:20 | W.PN.HOSP.TC ---
Today's Communication/Plan
-
Continue IV diuretics
continue inotropic support
Assessment / Plan
Assessment / Plan
Assessment:
Acute on chronic heart failure with reduced ejection fraction, EF 25-30%
Cardiomyopathy, mixed without improved ejection fraction despite optimal medical therapy
s/p Medtronic biventricular ICD 07/07/2024
- BNP 17,500
- s/p RHC with Severely elevated right and left-sided filling pressures with severe pulmonary hypertension and severely reduced cardiac output (cardiac index .96) in the setting of elevated systemic vascular resistance. Wedge 35.
- s/p swan Pradeep cath placement 08/22
- s/p Milrinone. now placed on Dobutamine
- continue IV Lasix TID- requires intensive monitoring of weights, lytes, I/Os. metolazone daily.
- sodium/fluid restriction
- hold GDMT therapy for now; Aldactone/BB held. on Hydralazine/Imdur for afterload reduction
- DCA cards following
JAI on CKD stage 3b, acute cardiorenal state
Hyponatremia
- Nephrology following
JAMES not using CPAP at home
- continue nocturnal BIPAP
- Pum following
Hypokalemia, replete as needed
Abdominal distention
- mild ascites on US
LBBB
Hx NSVT
- s/p Medtronic biventricular ICD 07/07/2024
History of atrial fibrillation s/p cv 07/23/2023
- continue Amiodarone
- IV Heparin drip requires intensive monitoring of PTTs; holding Eliquis in case additional support procedures needed for advanced CHF
History of COVID September 2021
HTN
- Aldactone/BB held. on Hydralazine with Cardiology titrating
HLD
- continue statin
DM2
- hold Jardiance
- continue SSI
- A1c: 7.2% recently
CAD s/p 1 vessel CABG 2009
- continue ASA/Statin
s/p bioAVR 2009
H/o Cough syncope
Radiculopathy
Depression - on Zoloft
Ocular migraines
Renal calculi
Arthritis
DVT ppx: IV Heparin
Code: Full code after re-discussed with daughter
Total Critical Care Time 40 minutes. I was immediately available to the patient and staff. I personally examined, reviewed labs, diagnostic images/reports, interpretations, treatment plans, discussed patient care with other providers and family
or caregivers (if patient is unable to make decisions), entered orders as appropriate and documented the medical record.
Anticipated Discharge: > 48 hours
Subjective/Interval History
-
Date of Service: August 25, 2024
no chest pain or SOB
on dobutamine
Objective Data
-
Labs:
Laboratory Results
08/25/24
03:15
WBC 7.8
Hgb 13.5
Hct 42.0
Plt Count 94 L
APTT 100.1 H
Sodium 134 L
Potassium 4.0
Chloride 96 L
Carbon Dioxide 30
BUN 80 H
Creatinine 1.9 H
Glucose 201 H
Calcium 8.2 L
Total Bilirubin 1.2
AST 56
ALT 77 H
Alkaline Phosphatase 67
Vital Signs:
Vital Signs
Temp Pulse Resp BP Pulse Ox
96.3 F L 94 19 107/59 97
08/25/24 11:18 08/25/24 10:00 08/25/24 10:00 08/25/24 08:30 08/25/24 10:00
I&O
08/24/24 08/25/24 08/26/24
06:59 06:59 06:59
Intake Total 1399.4 / 1424.0 2158.5 / 2191.6 532.4 / 532.4
Output Total 1765 / 1815 1775 / 1850 150 / 150
Balance -365.6 / -391.0 383.5 / 341.6 382.4 / 382.4
Physical Exam
-
General: No Apparent Distress
HEENT: Normocephalic, Atraumatic and Other ([facility] [place] in place)
Cardiac: Regular Rhythm and S1/S2
Musculoskeletal: Edema, Right Lower Extrem and Edema, Left Lower Extrem
Neuro: AO x 3
Hematologic / Lymphatic: No Lymphadenopathy
Psych: Calm
Data Reviewed
-
Critical Care Time (in minutes): 40
Labs: Labs Reviewed by me
[2024-08-25] MEDS: HEPARIN 25000 UNITS/250 ML IV (12:34)
[2024-08-25] MEDS: DOBUTREX 500 MG 250 IV ×2 (12:36→22:45)
[2024-08-25] MEDS: NOVOLOG FLEXPEN-HIGH RESISTANCE 4 UNITS SC ×2 (12:38→17:21)
[2024-08-25 12:44] LABS: Glucose - Point of Care 241 mg/dl (70-99)
--- NOTE | 2024-08-25 12:58 | CM ---
CM following re: discharger planning.
Discussed in Rounds, reviewed pt's chart, met with pt. Cardiology and nephrology following. Per chart review, continue nocturnal BIPAP, continue supportive care.
Pt lives with spouse 2SH, and pt pt was independent in all areas DIETETIC TECHNICIAN REGISTERED.
PT and OT will evaluate the pt to determine a level of care at discharge.
D/C plan: home with most likely VN services. PT and OT to confirm
CM will follow with discharge plan updates as hospitalization progresses
[2024-08-25] MEDS: MIRALAX 17 GRAMS PO (14:01)
[2024-08-25] MEDS: GLYCERIN SUPPOSITORY ADULT 1 SUPP RECTAL (14:01)
[2024-08-25] MEDS: SENOKOT-S 1 TABLET PO ×2 (14:03→22:43)
[2024-08-25] MEDS: ATIVAN 0.5 MG PO (15:49)
[2024-08-25] MEDS: CRESTOR 10 MG PO (17:21)
[2024-08-25 17:31] LABS: Glucose - Point of Care 221 mg/dl (70-99)
--- NOTE | 2024-08-25 17:49 | PTCARENOTE ---
no change in assessments , as per cardiology pt to remain on Dobutamine and keep Pa cath for measurements , pt sleeping most of the day
--- NOTE | 2024-08-25 20:24 | PTCARENOTE ---
Assumed care of pt. approx 1900.
4L NC maintaining own airway appropriately.
[place] zero/leveled/connections tightened and secured. appropriate waveforms, dressing changed.
Remains on dobutamine/heparin see titration flowsheets for details.
Hemodynamic monitoring through pa cath + arterial line, all titration metrics used my invasive/ correlating within 10 pts. against NIBP modality.
Focally intact/normocephalic, no neuro deficits noted upon exam.
All questions answered pt. offers no complaints at this time.
[2024-08-25 20:45] VITALS: PULSE 2; PULSE 86
[2024-08-25] MEDS: APRESOLINE PO (22:43)
[2024-08-25] MEDS: ZOLOFT 50 MG PO (22:43)
[2024-08-25] MEDS: LANTUS 0.15 UNITS SC (22:44)
[2024-08-25] MEDS: XALATAN OPHTHALMIC SOLUTION 1 DROP RIGHT EYE (22:49)
[2024-08-25 23:06] LABS: Glucose - Point of Care 223 mg/dl (70-99)
--- NOTE | 2024-08-25 23:47 | PTCARENOTE ---
Addendum entered by Edward West RN 08/25/24 23:51:
Per cardiology, increase Dobutamine to 4.
Original Note:
Pt. having episodes of sustained hpotension off arterial line readings, MAPs 50-55, systolics in 70s. ICU provider aware reaching out to cardiology.
-pt. refusing PAP therapy, mask removed, ICU NAJMA made aware, sp02 95%.
--- NOTE | 2024-08-26 00:17 | PTCARENOTE ---
Addendum entered by Edward West RN 08/26/24 02:34:
Orders to maintain MAP greater than 60. Norepi added for support if needed.
Original Note:
Hypotension persisting, ICU NAJMA notified, orders to increase Dobutamine gtt to 5.
--- NOTE | 2024-08-26 00:26 | W.PN.UPDATE ---
Addendum entered and electronically signed by MALA Mark 08/26/24 06:56:
Patient never required levophed. Stabilized with dobutamine increase.
Original Note:
Update Note
Progress Note Update
2345 MAPS are decreasing to 70/40 (55 MAPS), PAP 63/30, RA 12 and clinical stable. Situation discussed with cardiology and they wanted to increasing dobutamine up to 5mcg/kg/min. If hemodynamics still unstable then add pressor if needed.
[2024-08-26 04:31] LABS: % Eosinophils 3.1 % (0-6); % Immature Granulocytes 0.8 % (0-0.5); % Lymphocytes 6.6 % (20.5-51.1); % Monocytes 8.9 % (1.7-9.3); % Neutrophils 80.6 % (42.2-75.2); Absolute Eosinophils 0.2 10^3/uL (0-0.7); Absolute Immature Granulocytes 0.1 10^3/uL (0-0.05); Absolute Lymphocytes 0.5 10^3/uL (1.2-3.4); Absolute Monocytes 0.7 10^3/uL (0.1-0.6); Absolute Neutrophils 6.3 10^3/uL (1.4-6.5); Hematocrit 41.7 % (39.0-52.0); Hemoglobin 13.5 g/dL (13.0-18.0); Mean Corp Hgb Conc. 32.4 g/dL (33.0-37.0); Mean Corpuscular Volume 89.5 fL (80.0-94.0); Mean Platelet Volume 10.9 fL (7.4-10.4); Nucleated Red Blood Cells % 0 % (-); Platelet Count 90 10^3/uL (130-400); Red Blood Cell Count 4.66 10^6/uL (4.70-6.10); Red Cell Dist. Width 15.6 % (11.5-14.5); White Blood Cell Count 7.8 10^3/uL (4.8-10.8)
[2024-08-26 04:47] LABS: APTT > 200 Sec (23.4-35.0)
[2024-08-26 05:04] LABS: Blood Urea Nitrogen 74 mg/dl (9-20); Calcium 8.5 mg/dl (8.4-10.2); Carbon Dioxide 31 mmol/L (22-30); Chloride 95 mmol/L (98-107); Estimated Creatinine Clearance 48 ml/min; Glucose 177 mg/dl (70-99); Magnesium 2.5 mg/dl (1.6-2.3); Potassium 4.1 mmol/L (3.5-5.1); Sodium 134 mmol/L (135-145); eGFR 38.53
--- NOTE | 2024-08-26 05:10 | PTCARENOTE ---
No change in pt. assessment.
[2024-08-26 05:26] LABS: APTT 86.1 Sec (23.4-35.0)
[2024-08-26 06:00] VITALS: BMI 36.9
[2024-08-26] MEDS: NOVOLOG FLEXPEN-HIGH RESISTANCE 4 UNITS SC ×2 (08:21→11:12)
[2024-08-26] MEDS: SENOKOT-S 1 TABLET PO ×2 (08:22→21:39)
[2024-08-26] MEDS: IMDUR (EXTENDED RELEASE) 30 MG PO (08:22)
[2024-08-26] MEDS: ZAROXOLYN 5 MG PO (08:22)
[2024-08-26] MEDS: LASIX 80 MG IV (08:22)
[2024-08-26] MEDS: MIRALAX PO (08:23)
[2024-08-26] MEDS: APRESOLINE PO ×2 (08:23→21:39)
[2024-08-26] MEDS: ASPIR LOW (ENTERIC COATED) 81 MG PO (08:23)
[2024-08-26] MEDS: PACERONE 200 MG PO (08:23)
--- NOTE | 2024-08-26 08:23 | W.PN.CARDCBS ---
Today's Communication / Plan
-
Up titration of dobutamine
Consider more aggressive diuresis, possibly start furosemide infusion, await renal recommendations.
Today is day 4 of [place]-Pradeep catheter right IJ, consider removal of IJ later today or tomorrow morning as we assess hemodynamics
Impression / Plan
-
PCP: Dr. Chintan Gonzalez
Cardiology: Dr. Gabriel
Impression
H/O Obesity, HTN, HLD, T2DM, Afib on eliquis, Hx of LBBB, hx of BioAVR and 1 vessel CABG, JAMES not compliance on CPAP, s/p ICD presents to catheter builder for elective RHC. . He was previously on Lasix, later trialed on Bumex (developed rash) and now is on
Torsemide.
RHC on 08/21/24 finds markedly elevated filling pressures with pulmonary capillary wedge pressure of 35 and severely depressed cardiac index of 1 with cardiac output of 2.34.
RHC on 08/22/[address] SG catheter and demonstrated elevated filling pressures with pulmonary capillary wedge pressure of 27, elevated pulmonary pressures of 65/28, cardiogenic shock with cardiac index of 1.75
Acute on chronic HFrEF with cardiogenic shock
JAI
Cardiomyopathy, mixed without improved ejection fraction despite optimal medical therapy
s/p Medtronic biventricular ICD 07/07/2024
LBBB
CAD
s/p bio AVR 2009
Paroxysmal atrial fibrillation
s/p cv 07/23/2023 Chronic AC w/ Eliquis
h/o NSVT
h/o COVID September 2021
HTN
HLD
DM2
JAMES not using CPAP
h/o cough syncope
Radiculopathy
Depression
Ocular migraines
Renal calculi
Arthritis
Lexiscan sestamibi stress test 07/13/2023: Moderate sized medium in severity fixed basal to distal inferior, basal to mid inferoseptal, small mid anterior perfusion defect with no evidence of ischemia. Ejection fraction 21% with severe global
hypokinesis
Cardiac catheterization 03/28/2024: LM: LI. LAD: Moderate to severe diffuse atherosclerotic plaque. D2 has 30% stenosis. Left circumflex: Mid 60 to 70% stenosis. RCA: LI.
HEMODYNAMICS : (mmHg) RA (m) : 22; RV (s/d,m) : 72/14, 24; PA (s/d, m) : 72/34, 50; PCWP (m) : 34, V waves to 53 mmHg; PA saturation: 62.5% on room air; AO saturation: 93.6% on room air;
Cardiac Output : 5.58 L/min; Cardiac Index : 2.23 L/min/m-2; Systemic vascular resistance: 889 dsc^(-5); Pulmonary vascular resistance: 2.87 willams unit; AO (s/d) : 102/61; LV (s/d) : 131/21; LVEDP : 30
Estimated invasive transaortic gradient of 27 mmHg, aortic valve area 1.3 cm�
Significantly elevated right and left-sided filling pressures with severe pulmonary hypertension and normal cardiac output. Borderline low systemic vascular resistance.
RHC 08/21/24: RA 30, PA 63/38, PCWP 35-42, CO/CI 2.3/0.96, SVR 1880
RHC 08/23/24: RA 15, PA 65/28, PCWP 27, CO/CI 4.47/1.75, PA sat 65.6%, SVR 1432, PVR 3.81
Echo 01/2022: Ejection fraction 40%, global hypokinesis, status post AVR with mean gradient of 10 mmHg
Echo 06/28/2023: Dilated right ventricle with ejection fraction of 20 to 25%, status post bioprosthetic AVR with mean gradient of 15 mmHg, dilated right heart with PA systolic of 45 mmHg
Echo 08/03/2023: Ejection fraction 25 to 30%, hypokinetic septum, apex, inferior, anterior and distal lateral pelletier, mild concentric LVH, moderate MR, status post bioprosthetic AVR with mean gradient of 13 mm hG
Echo 02/16/2024: EF 25%. Global hypokinesis with basal inferior and basal inferolateral akinesis. Stage III diastolic dysfunction. Moderate to severe MR. Severely dilated left atrium. #23 bovine aortic valve with peak/mean gradient 46/29 mmHg.
Mild AI. Mild TR. PAP 35 mmHg
Echo 07/14/2024: EF 25-30% with global hypo, enlarged RV, ICD in place well seated #23 bovine AVR with peak/mean grad of 27/19 mmHg respectively, trace pericardial effusion.
Echo 08/21/24: EF 15-20%, AVR with mean gr 30, PA 30
Plan:
Critically ill
Cardiogenic shock seems to be a combination of progressive heart failure/LV dysfunction and also likely some component of progressive bioprosthetic aortic valve stenosis.
-Patient in intensive care unit with [place]-Pradeep catheter in place (placed 08/22/24) to assist in management of cardiogenic shock and inotropic therapy
-Initiated on and up titration of dobutamine for inotropic support.
This morning (08/26/24) RA 15, PA 66/27, CI 2 and CO 4.88
Dobutamine was increased from 2.5to 5 mcg/kg/min earlier this AM
Will further increase dobutamine to 7.5 mcg/kg/min this morning and follow hemodynamics
Will reassess later today regarding consideration for removal of [place]-Pradeep catheter as today is day 4
-Hydralazine and nitrates initiated for afterload reduction (not on ARB/ARNI due to renal insufficiency)
-Consider Entresto when renal function stabilizes
-Hold off on BB in the setting of shock, would eventually reintroduce
-No SGLT2 inhibitor at this time given hypotension with an acute kidney injury
-Continue aggressive diuresis with IV Lasix as well as oral metolazone
Weight is essentially stable past 24 hours and up approximately 2 pounds over 48 hours is even, fluid balance is even
Can consider up titration of diuretics, possibly consider furosemide infusion, await renal recommendations
Atrial fibrillation
-Cont amio/heparin for h/o atrial fibrillation
Aortic stenosis
-Will likely need TAVR workup in the near future. Consider MISAEL prior to discharge when he is more compensated.
Acute on chronic kidney disease currently in the setting of cardiorenal syndrome
-Support hemodynamics as noted above
-Continue aggressive diuresis, renal function is improving (creatinine now down to 1.8), renal is following closely.
Discussed with primary service and also with ICU nursing
Discussed with his daughters at bedside.
Critical care time 35-minutes
Progress Note - Reverberatory Furnace Operator
Subjective
Date of Service: August 26, 2024
He is in bed awake and describes no discomfort. He tells me he would like to try to sit up.
Objective
Labs:
08/26/24 03:38
08/26/24 03:38
Labs
Hgb 13.5 g/dL (13.0-18.0) 08/26/24 03:38
Hct 41.7 % (39.0-52.0) 08/26/24 03:38
Plt Count 90 10^3/uL (130-400) L 08/26/24 03:38
APTT 86.1 Sec (23.4-35.0) H 08/26/24 04:52
Sodium 134 mmol/L (135-145) L 08/26/24 03:38
Potassium 4.1 mmol/L (3.5-5.1) 08/26/24 03:38
BUN 74 mg/dl (9-20) H 08/26/24 03:38
Creatinine 1.8 mg/dL (0.7-1.3) H 08/26/24 03:38
Glucose 177 mg/dl (70-99) H 08/26/24 03:38
Vital Signs and I&O:
Vital Signs
Temp Pulse Resp BP Pulse Ox
96.8 F L 93 13 90/47 96
08/26/24 03:30 08/26/24 07:00 08/26/24 07:00 08/25/24 22:44 08/26/24 07:00
Vital Signs
Temp Pulse Resp BP Pulse Ox
96.8 F L 93 13 90/47 96
08/26/24 03:30 08/26/24 07:00 08/26/24 07:00 08/25/24 22:44 08/26/24 07:00
Intake & Output
08/24/24 08/25/24 08/26/24 08/27/24
06:59 06:59 06:59 06:59
Intake Total 1399.4 / 1424.0 2158.5 / 2191.6 1701.4 / 1701.4
Output Total 1765 / 1815 1775 / 1850 1610 / 1610
Balance -365.6 / -391.0 383.5 / 341.6 91.4 / 91.4
Physical Exam
Physical Exam
Laying in bed no acute distress [place]-Pradeep catheter in place right neck
Gen: NAD, AAOx3
HEENT: NC/AT, sclera anicteric
Neck: RIJ [place] in place
CV: RRR, distant heart sounds
Lungs: No increase WOB on 4L NC
Abd: distended
Ext: 2+ pitting LE edema
Skin: Warm, dry
Neuro: Non-focal
--- NOTE | 2024-08-26 08:28 | W.PN.INTV ---
Today's Communication / Plan
Recommendations
Continue aggressive diuresis
Heparin drip
Dobutamine drip, monitor for arrhythmias
Replete K>4, Mg>2
Trend UOP and sCr
Resume GDMT once BP improves
Give dose of midodrine today given MAP is just at 65
Once off the pulmonary artery catheter can consider shifting to oral anticoagulation and physical therapy
Sign Painter Helper services will continue to follow along
Assessment
-
74-year-old obese occasional cigar smoking male with a history of hypertension, hyperlipidemia, CAD/CABG, diabetes, atrial fibrillation and JAMES/CPAP intolerant recently had AICD placed with subsequent history of difficult to control CHF underwent
elective right heart catheterization noted to have severely elevated filling pressures with low cardiac index necessitating ICU/pulmonary artery catheter/inotropes-telephone operators supervisor consulted for CHF/critical care management 08/22/2024.
CHF-acute on top of chronic with reduced EF
Cardiomyopathy status post recent biventricular ICD 07/07/2024
JAI with suspected cardiorenal syndrome
Hyperglycemia
Hypocalcemia
Elevated LFTs
Right sided pleural effusion
Conditions present prior to admission:
Hypertension.
Hyperlipidemia.
Diabetes.
CAD/CABG/AVR.
Cardiomyopathy-EF 20%
ICD June 2025.
JAMES/CPAP intolerant.
Atrial fibrillation on Eliquis.
Abnormal CT abdomen-suggestive of cirrhosis 07/2024
Varicocele repair. Lumbar discectomy 2021. Repair ascending aortic aneurysm/AVR-bovine.
Plan
Patient critically ill and admitted to ICU to obtain pulmonary artery catheter, inotropes, diuresis-extensive cardiac and pulmonary workup summarized below
Supplemental oxygen as needed to keep SpO2 >90%
Incentive spirometry q1hr while awake
CPAP or BiPAP at night as tolerated-in the past has been intolerant-willing to use --> did not tolerate BiPAP overnight 08/25 - 08/26/2024
Aspiration precautions
Nebulizers if needed-currently not bronchospastic
s/p prednisone taper (completed on 08/24/2024) - was not for pulmonary-had rash possibly Bumex related as an outpatient
Cardiology following-correspondence reviewed
Right heart catheterization results reviewed-significantly elevated filling pressures with low cardiac index-[facility] 08/21/24: RA 30, PA 63/38, PCWP 35-42, CO/CI 2.3/0.96, SVR 1880, PVR: 6.85 FARRAR
Pulmonary artery catheter placement-08/22/2024-improvement in cardiac index, PCWP, RA-pressure, SVR + PVR
Continue to measure pulmonary artery parameters-cardiac index improved
Continue diuresis as tolerated-intensified per nephrology
Inotropes continue-currently on dobutamine s/p milrinone
Monitor renal function, electrolytes, intake/output, lower extremity edema and weight
Replace electrolytes as needed
PO amiodarone continues as well
Heparin drip continues-Eliquis on hold--eventual change back
Eventually start GDMT
Monitor renal function
Replace electrolytes
Acute cardiorenal state
Nephrology following-correspondence reviewed
Monitor ascites-not enough fluid for diagnostic or therapeutic paracentesis per abdominal ultrasound on 08/22/2024
Abdominal ultrasound summarized below
Monitor liver functions
Liver appeared normal on recent abdominal ultrasound on 08/01/2024, hence doubtful he has cirrhosis
Monitor MSAS-no signs of withdrawal
Alcohol withdrawal treatment protocol if indicated
Ativan as needed
Monitor blood sugar with goal 140-180
Insulin supplementation as needed
Last saw Dr. Mars/Gabrielle Macario UPPER EXTREMITY SURGEON on 11/29/[address] Mars reviewed with as well as daughter at the bedside 08/22/2024, 08/23/2024, 08/24/2024, 08/25/2023
Critical care statement: A total of 38 minutes of critical care time was provided for this patient today. This includes management of unstable vital signs, evaluation of the patient at bedside, reviewing the patient's pertinent medical records
including radiographs, pressor and inotrope management, diuresis management, microbiology, laboratory evaluations, and discussion with primary team, consultants, pharmacy, nutrition, physical therapy, case management, charge nurse, critical care
nursing, and respiratory therapy.
Diagnostic data:
CXR 10/01/21: cardiomegaly with slightly prominent pulmonary vascularity which could represent mild CHF vs atypical acute pulmonary edema. possible left basilar patchy opacity such as pna������
��
Chest x-ray 12/10/21-NAD
Chest x-ray 08/22/2024-no acute disease in the chest, cardiomegaly, waterbed configuration
CT Chest 09/29/21: no PE. small bilateral pleural effusions. mild peripheral ground glass densities in lower lung zones b/l suggesting mild residual pna.��
CT chest 07/11/23-no pulmonary embolism, minimal right pleural effusion, minimal pleural thickening left hemithorrax, no adenopathy or nodules.
CT chest 07/31/2024-small right pleural effusion, moderate ascites, liver contour appears to be subtly nodular suggestive of cirrhosis, basilar atelectasis
Abdominal ultrasound 08/22/2024 - mild abdominal pelvic ascites, slightly progressed. Moderate right pleural effusion.
US BLE 10/01/21: negative for DVT������������������
ECHO 08/11/21: ischemic heart disease with mildly reduced systolic function. LV EF 40-45%. moderate LVH. RV base mildly enlarged. Tricuspid and mitral regurgitation. s/p bioprosthetic aortic valve prosthesis.�������
Nuclear stress test 06/12/21-EF 25%, moderate risk study�������
Echocardiogram 06/28/23-EF 20-25%, stage II diastolic dysfunction, bioprosthetic aortic valve, PA systolic 45, rhythm atrial fibrillation�������
Stress test 07/13/23-revealed a moderate in size, medium severity fixed basal to distal inferior and inferoseptal perfusion defect, EF 21%, overall high risk study.�������
Echo 02/16/2024: EF 25%. Global hypokinesis with basal inferior and basal inferolateral akinesis. Stage III diastolic dysfunction. Moderate to severe MR. Severely dilated left atrium. #23 bovine aortic valve with peak/mean gradient 46/29 mmHg.
Mild AI. Mild TR. PAP 35 mmHg
Echo 07/14/2024: EF 25-30% with global hypo, enlarged RV, ICD in place well seated #23 bovine AVR with peak/mean grad of 27/19 mmHg respectively, trace pericardial effusion.
Echo 08/21/24: EF 15-20%, AVR with mean gr 30, PA 30
Cardioversion 07/23/23-successful cardioversion from atrial fibrillation to sinus rhythm.
Cardiac catheterization 03/28/2024: LM: LI. LAD: Moderate to severe diffuse atherosclerotic plaque. D2 has 30% stenosis. Left circumflex: Mid 60 to 70% stenosis. RCA: LI.
HEMODYNAMICS : (mmHg) RA (m) : 22; RV (s/d,m) : 72/14, 24; PA (s/d, m) : 72/34, 50; PCWP (m) : 34, V waves to 53 mmHg; PA saturation: 62.5% on room air; AO saturation: 93.6% on room air;
Cardiac Output : 5.58 L/min; Cardiac Index : 2.23 L/min/m-2; Systemic vascular resistance: 889 dsc^(-5); Pulmonary vascular resistance: 2.87 willams unit; AO (s/d) : 102/61; LV (s/d) : 131/21; LVEDP : 30
Estimated invasive transaortic gradient of 27 mmHg, aortic valve area 1.3 cm�
Significantly elevated right and left-sided filling pressures with severe pulmonary hypertension and normal cardiac output. Borderline low systemic vascular resistance.
PFT 12/19/21-FEV1 2.55-72%, FVC 3.77 L-70%, no significant response, TLC 80%, 90%, DLCO 64%. Mild obstruction and moderate reduction in diffusing capacity.�������
Spirometry 07/29/23-FEV1 1.18-34%, FVC 1.5-39%, no significant BD response. Severe obstruction.
Subjective Dataa
Subjective Data
Date of Service:
Date of Service: August 26, 2024
Chief Complaint: Sign Painter Helper Follow Up and Pulmonary Follow Up
Subjective:
Patient seen and evaluated today at bedside. Sitting in bed in no acute distress. Denies SOB. Has exquisite weakness during activities. R�IJ Spout [place] in place with CO/CI: 4.88/2.02, respectively. Currently on dobutamine gtt at 7.5mcg/kg/min with HR
97, BP via A-line: 92/50, PAP: 60/3 (29), CVP: 13, BP via NIBP: 86/50 and saturating 95% on room air. He denies chest pain, GUTHRIE, nausea, vomiting, fevers or chills.
Review of Systems
General: Other (Negative unless mentioned above)
Objective Data
Data Reviewed
Vital Signs / I&O / Oxygen:
Vital Signs
Temp Pulse Resp BP Pulse Ox
98.7 F 92 13 89/48 95
08/26/24 07:33 08/26/24 08:23 08/26/24 07:00 08/26/24 08:23 08/26/24 08:45
Intake and Output
08/25/24 08/26/24 08/27/24
06:59 06:59 06:59
Intake Total 2158.5 / 2191.6 1701.4 / 1731.9 540.7 / 540.7
Output Total 1775 / 1850 1610 / 1660 150 / 150
Balance 383.5 / 341.6 91.4 / 71.9 390.7 / 390.7
SaO2 95
Nasal Cannula flow liters per 2
minute
Physical Exam
General: Respiratory Distress (negative), Comfortable and Other (Morbidly obese)
HEENT: Normocephalic and Anicteric
Cardiovascular: S1-S2, Rub (negative), Peripheral Edema (+2 lower extremity pitting edema bilaterally) and Other
Respiratory: Wheeze (negative), Crackles (Bilateral), Rhonchi (negative) and Non-Labored Respirations
GI: Soft, Distended (Abdominal obesity), Non Tender and Normal Bowel Sounds
Neurology: AO x 3 and Tremors (negative)
Skin: Warm, Dry, Cyanosis (negative) and Jaundice (negative)
Labs/Micro/Reports
Lab Data
08/26/24 03:38
08/26/24 03:38
Laboratory Results
08/26/24 08/26/24
03:38 04:52
APTT > 200 H* 86.1 H
[2024-08-26 08:35] LABS: Glucose - Point of Care 220 mg/dl (70-99)
--- NOTE | 2024-08-26 08:46 | PTCARENOTE ---
pt aaox3. states no pain. does want to get oob and stretch. vpaced on monitor. room air breath sounds diminished at bases. right swan cordis in place. cardiac numbers done. chino in place zeroed. cvp monitored. heparin and dobutamine running
as ordered. ross care done. draining yellow. reinforced with pt fluid restriction.
--- NOTE | 2024-08-26 09:03 | W.PN.HOSP.TC ---
Today's Communication/Plan
-
Dobutamine increased
continue diuretic regimen, defer to Cards/Nephrology on possible use of Lasix infusion
monitor Marion readings further 24 hours
PT/OT - ok for sitting up with Marion per Cards
Assessment / Plan
Assessment / Plan
Assessment:
Acute on chronic heart failure with reduced ejection fraction, EF 25-30%
Cardiomyopathy, mixed without improved ejection fraction despite optimal medical therapy
s/p Medtronic biventricular ICD 07/07/2024
- BNP 17,500
- s/p RHC with Severely elevated right and left-sided filling pressures with severe pulmonary hypertension and severely reduced cardiac output (cardiac index .96) in the setting of elevated systemic vascular resistance. Wedge 35.
- s/p swan Pradeep cath placement 08/22
- s/p Milrinone. now placed on Dobutamine, currently 5mcg
- continue IV Lasix TID- requires intensive monitoring of weights, lytes, I/Os. metolazone daily. Consider Lasix daily drip.
- sodium/fluid restriction
- hold GDMT therapy for now; Aldactone/BB held. on Hydralazine/Imdur for afterload reduction
- DCA cards following
JAI on CKD stage 3b, acute cardiorenal state
Hyponatremia
- Nephrology following
JAMES not using CPAP at home
- continue nocturnal BIPAP
- Pum following
Hypokalemia, replete as needed
Abdominal distention
- mild ascites on US
LBBB
Hx NSVT
- s/p Medtronic biventricular ICD 07/07/2024
History of atrial fibrillation s/p cv 07/23/2023
- continue Amiodarone
- IV Heparin drip requires intensive monitoring of PTTs; holding Eliquis in case additional support procedures needed for advanced CHF
History of COVID September 2021
HTN
- Aldactone/BB held. on Hydralazine with Cardiology titrating
HLD
- continue statin
DM2
- hold Jardiance
- continue SSI
- A1c: 7.2% recently
CAD s/p 1 vessel CABG 2009
- continue ASA/Statin
s/p bioAVR 2009
H/o Cough syncope
Radiculopathy
Depression - on Zoloft
Ocular migraines
Renal calculi
Arthritis
DVT ppx: IV Heparin
Code: Full code after re-discussed with daughter
Total Critical Care Time 41 minutes. I was immediately available to the patient and staff. I personally examined, reviewed labs, diagnostic images/reports, interpretations, treatment plans, discussed patient care with other providers and family
or caregivers (if patient is unable to make decisions), entered orders as appropriate and documented the medical record.
Anticipated Discharge: > 48 hours
Subjective/Interval History
-
Date of Service: August 26, 2024
weight stable to increased
I/Os, flat on TID Lasix
Dobutamine increased to 5 last evening for hypotension, low MAP
Objective Data
-
Labs:
Laboratory Results
08/26/24 08/26/24
03:38 04:52
WBC 7.8
Hgb 13.5
Hct 41.7
Plt Count 90 L
APTT > 200 H* 86.1 H
Sodium 134 L
Potassium 4.1
Chloride 95 L
Carbon Dioxide 31 H
BUN 74 H
Creatinine 1.8 H
Glucose 177 H
Calcium 8.5
Vital Signs:
Vital Signs
Temp Pulse Resp BP Pulse Ox
98.7 F 92 13 89/48 95
08/26/24 07:33 08/26/24 08:23 08/26/24 07:00 08/26/24 08:23 08/26/24 08:45
I&O
08/25/24 08/26/24 08/27/24
06:59 06:59 06:59
Intake Total 2158.5 / 2191.6 1701.4 / 1731.9 501.0 / 501.0
Output Total 1775 / 1850 1610 / 1660 100 / 100
Balance 383.5 / 341.6 91.4 / 71.9 401.0 / 401.0
Physical Exam
-
General: No Apparent Distress
HEENT: Normocephalic, Atraumatic and Other (R IJ Marion)
Respiratory: Crackles; Negative Wheezes
Cardiac: Regular Rhythm and S1/S2
GI: Nondistended
Genito-urinary: No Costovertebral Tender
Musculoskeletal: Edema, Right Lower Extrem and Edema, Left Lower Extrem
Neuro: AO x 3
Psych: Calm
Data Reviewed
-
Critical Care Time (in minutes): 41
Labs: Labs Reviewed by me
--- NOTE | 2024-08-26 11:03 | W.PN.NEPH.PH ---
Today's Communication / Plan
-
Increase Lasix to 160 mg and 10 mg of metolazone now
Assessment/Plan
-
74 y/o M, hx of Obesity, HTN, HLD, T2DM, Afib on eliquis, Hx of LBBB, hx of BioAVR and 1 vessel CABG, JAMES not compliance on CPAP, s/p ICD presents to home performance laborer for elective RHC. . He was previously on Lasix, later trialed on Bumex (developed rash)
and now is on Torsemide. Today's RHC showed cardiac index of 1.0 and elevated wedge pressures of 37
renal consult for acute on chronic kidney disease with a baseline creatinine 1.6-1.8 with admitting creatinine 2.2.
Impression:
Acute on chronic kidney disease secondary to cardiorenal
acute CHF status post right heart cath cardiac output severely diminished with ejection fraction 15 to 20%
atrial fibrillation rate controlled
CAD/CHF/ICD
plan:
Creatinine improving to 1.9 in setting of cardiorenal syndrome
Remains hemodynamically labile on inotropic support
Right heart cath reviewed from 08/22/2024 pulmonary capillary wedge pressure 27 cardiac output 4.4 L cardiac index 2.2
monitor daily weights and urine output with Ross catheter
sodium restriction 2 g
I would not add SGLT2 inhibitor at this time given hypotension with an acute kidney injury
Patient still remains volume overloaded
creatinine on admission 2.2 and remains now at 1.9
no acute need for dialysis and going forward it would be difficult to pursue dialysis if indicated in the setting of severe cardiomyopathy and profound hemodynamic instability and therefore not a candidate
Patient remains critically ill on inotropic support and IV diuresis for decompensated CHF
Discussed with family at the bedside today
Not achieving negative balance =increased Lasix to 160 mg twice a day. In regards to continuous drip if he is not responding to higher boluses, he would not respond to a drip.
Increase metolazone to 10 mg as 1
Discussed with the critical care team.
Total Time Spent with Patient (in minutes): 32
-
-
Date of Service: August 26, 2024
CC / HPI / ROS
-
Chief Complaint:
Shortness of breath
History of Present Illness:
Acute on chronic kidney disease secondary to CHF improving clinically
Creatinine at 1.9
Hemodynamically labile on inotropic support
Review of Systems:
Continue shortness of breath
Nonoliguric via ross
Weight up
Labs
-
Labs:
WBC 7.8 10^3/uL (4.8-10.8) 08/26/24 03:38
RBC 4.66 10^6/uL (4.70-6.10) L 08/26/24 03:38
Hgb 13.5 g/dL (13.0-18.0) 08/26/24 03:38
Hct 41.7 % (39.0-52.0) 08/26/24 03:38
Plt Count 90 10^3/uL (130-400) L 08/26/24 03:38
Sodium 134 mmol/L (135-145) L 08/26/24 03:38
Potassium 4.1 mmol/L (3.5-5.1) 08/26/24 03:38
Chloride 95 mmol/L (98-107) L 08/26/24 03:38
Carbon Dioxide 31 mmol/L (22-30) H 08/26/24 03:38
BUN 74 mg/dl (9-20) H 08/26/24 03:38
Creatinine 1.8 mg/dL (0.7-1.3) H 08/26/24 03:38
eGFR 38.53 08/26/24 03:38
Glucose 177 mg/dl (70-99) H 08/26/24 03:38
Calcium 8.5 mg/dl (8.4-10.2) 08/26/24 03:38
Ikw-I-Lsycdeuzrgb Pept 55767 pg/ml 08/21/24 17:10
Albumin 3.7 g/dl (3.5-5.0) 08/25/24 03:15
Physical Exam
-
Vital Signs:
Vital Signs
Temp Pulse Resp BP Pulse Ox
98.7 F 92 13 89/48 95
08/26/24 07:33 08/26/24 08:23 08/26/24 07:00 08/26/24 08:23 08/26/24 08:45
Cardiovascular:: Regular rate and rhythm
Respiratory:: Bilateral: Coarse
Lung Excursion:: Normal
Abdomen:: Soft
Bowel Sounds:: Normal
Extremity Edema:: +2: Bilateral: (Anasarca)
Ross Catheter: Yes
[2024-08-26] MEDS: ZAROXOLYN 10 MG PO (11:11)
[2024-08-26] MEDS: LASIX 160 MG IV ×2 (11:12→16:20)
[2024-08-26 11:20] LABS: Glucose - Point of Care 208 mg/dl (70-99)
[2024-08-26] MEDS: ATIVAN 0.5 MG PO (11:55)
[2024-08-26] MEDS: ZOFRAN 4 MG IV (12:25)
[2024-08-26 12:31] VITALS: BP 106/60; BP 87/44; BP 91/50; BP 94/53; PULSE 94; PULSE 96; O2SAT 95; O2SAT 97
--- NOTE | 2024-08-26 12:46 | PTCARENOTE ---
with pt/ot help pt stood at side of bed for a few moments. able to side step to top of bed. after back in bed pt became nauseous. bp per a line map 50. zofran given. map now 62 resolved spont. pt family at bedside.
[2024-08-26 14:00] VITALS: BP 99/72
[2024-08-26] MEDS: ProAmatine 10 MG PO (14:02)
[2024-08-26 16:00] VITALS: BP 94/76
[2024-08-26] MEDS: DOBUTREX 500 MG 250 IV ×2 (16:12→21:40)
[2024-08-26] MEDS: APRESOLINE 37.5 MG PO (16:20)
[2024-08-26] MEDS: CRESTOR 10 MG PO (16:20)
--- NOTE | 2024-08-26 16:26 | PTCARENOTE ---
pt turning self in bed and partially removed swan cath. dr vuong notified. he ordered to remove swan cath. bench patternmaker metal up to remove and place new dressing.
[2024-08-26] MEDS: NOVOLOG FLEXPEN-HIGH RESISTANCE 2 UNITS SC (17:21)
[2024-08-26 17:32] LABS: Glucose - Point of Care 189 mg/dl (70-99)
--- NOTE | 2024-08-26 19:37 | PTCARENOTE ---
Assumed care of pt. approx 1900.
PA cath. removed during dayshift. Arterial line remains for hemodynamic monitoring, arterial line changed and removed off trifurcated swan tubing zeroed and leveled.
Remains on therapeutic dose heparin gtt, and Dobutamine gtt.
Normotensive, normothermic, no neurological defecits noted, focally intact. See assessment flowsheets for details.
All care explained as given, plan of care updated to patient all questions answered.
[2024-08-26] MEDS: ZOLOFT 50 MG PO (21:39)
[2024-08-26] MEDS: XALATAN OPHTHALMIC SOLUTION 1 DROP RIGHT EYE (21:39)
[2024-08-26] MEDS: LANTUS 0.15 UNITS SC (21:40)
[2024-08-26] MEDS: HEPARIN 25000 UNITS/250 ML IV (21:41)
--- NOTE | 2024-08-27 02:15 | PTCARENOTE ---
No change in pt. assessment.
[2024-08-27 03:39] LABS: Hematocrit 40.2 % (39.0-52.0); Hemoglobin 13.2 g/dL (13.0-18.0); Mean Corp Hgb Conc. 32.8 g/dL (33.0-37.0); Mean Corpuscular Hgb 28.9 pg (27.0-31.0); Mean Platelet Volume 11.2 fL (7.4-10.4); Platelet Count 78 10^3/uL (130-400); Red Blood Cell Count 4.57 10^6/uL (4.70-6.10); Red Cell Dist. Width 15.6 % (11.5-14.5); White Blood Cell Count 7.9 10^3/uL (4.8-10.8)
[2024-08-27 03:47] LABS: APTT 106.2 Sec (23.4-35.0)
[2024-08-27 03:56] LABS: Blood Urea Nitrogen 66 mg/dl (9-20); Calcium 8.4 mg/dl (8.4-10.2); Carbon Dioxide 27 mmol/L (22-30); Chloride 93 mmol/L (98-107); Estimated Creatinine Clearance 48 ml/min; Glucose 168 mg/dl (70-99); Potassium 3.8 mmol/L (3.5-5.1); Sodium 131 mmol/L (135-145); eGFR 38.53
[2024-08-27 06:00] VITALS: BMI 36.8
--- NOTE | 2024-08-27 06:03 | PTCARENOTE ---
No change in pt. assessment.
[2024-08-27 08:09] LABS: Glucose - Point of Care 188 mg/dl (70-99)
--- NOTE | 2024-08-27 08:18 | W.PN.INTV ---
Today's Communication / Plan
Recommendations
Continue aggressive diuresis
Heparin drip
Check CXR tomorrow to assess pulmonary edema status
Dobutamine drip, monitor for arrhythmias
Replete K>4, Mg>2
Trend UOP and sCr
He has been refusing his BiPAP � check VBG tomorrow morning to assess stability of pCO2 + pH
Resume GDMT once BP improves
Give dose of midodrine yesterday given MAP is just at 65; continue to give this if needed
Now that PAC has been removed, consider changing heparin gtt to oral anticoagulation and starting physical therapy
[employer] [facility] services will continue to follow along
Assessment
-
74-year-old obese occasional cigar smoking male with a history of hypertension, hyperlipidemia, CAD/CABG, diabetes, atrial fibrillation and JAMES/CPAP intolerant recently had AICD placed with subsequent history of difficult to control CHF underwent
elective right heart catheterization noted to have severely elevated filling pressures with low cardiac index necessitating ICU/pulmonary artery catheter/inotropes-claims service adjustor consulted for CHF/critical care management 08/22/2024.
CHF-acute on top of chronic with reduced EF
Cardiomyopathy status post recent biventricular ICD 07/07/2024
JAI with suspected cardiorenal syndrome
Hyperglycemia
Hypocalcemia
Elevated LFTs
Right sided pleural effusion
Obesity
Conditions present prior to admission:
Hypertension.
Hyperlipidemia.
Diabetes.
CAD/CABG/AVR.
Cardiomyopathy-EF 20%
ICD June 2025.
JAMES/CPAP intolerant.
Atrial fibrillation on Eliquis.
Abnormal CT abdomen-suggestive of cirrhosis 07/2024
Varicocele repair. Lumbar discectomy 2021. Repair ascending aortic aneurysm/AVR-bovine.
Plan
Patient critically ill and admitted to ICU to obtain pulmonary artery catheter, inotropes, diuresis-extensive cardiac and pulmonary workup summarized below
- He remains on dobutamine
Supplemental oxygen as needed to keep SpO2 >90%
Incentive spirometry q1hr while awake
CPAP or BiPAP at night as tolerated-in the past has been intolerant-willing to use --> did not tolerate BiPAP overnight 08/25 - 08/26/2024, and refused again last night
- trend VBG to assure pH and pCO2 are stable
Aspiration precautions
Nebulizers if needed-currently not bronchospastic
s/p prednisone taper (completed on 08/24/2024) - was not for pulmonary-had rash possibly Bumex related as an outpatient
Cardiology following-correspondence reviewed
Right heart catheterization results reviewed-significantly elevated filling pressures with low cardiac index-RHC 08/21/24: RA 30, PA 63/38, PCWP 35-42, CO/CI 2.3/0.96, SVR 1880, PVR: 6.85 FARRAR
Pulmonary artery catheter placement-08/22/2024-improvement in cardiac index, PCWP, RA-pressure, SVR + PVR
PAC was removed on 08/26/2024 after it malpositioned (Norris-Pradeep was accidentally withdrawn somehow by the patient)
Continue diuresis as tolerated-intensified per nephrology
Inotropes continue-currently on dobutamine s/p milrinone
Monitor renal function, electrolytes, intake/output, lower extremity edema and weight
Replace electrolytes as needed
PO amiodarone continues as well
Heparin drip continues-Eliquis on hold--eventual change back
Eventually start GDMT
Monitor renal function
Replace electrolytes
Acute cardiorenal state
Nephrology following-correspondence reviewed
Monitor ascites-not enough fluid for diagnostic or therapeutic paracentesis per abdominal ultrasound on 08/22/2024
Abdominal ultrasound summarized below
Monitor liver functions
Liver appeared normal on recent abdominal ultrasound on 08/01/2024, hence doubtful he has cirrhosis
Monitor MSAS-no signs of withdrawal
Alcohol withdrawal treatment protocol if indicated
Ativan as needed - not currently indicated
Monitor blood sugar with goal 140-180
Insulin supplementation as needed
Last saw Dr. Mars/Gabrielle Macario COST RECOVERY TECHNICIAN on 11/29/[address] Mars reviewed with as well as daughter at the bedside 08/22/2024, 08/23/2024, 08/24/2024, 08/25/[address]23
[address] Obrien answered all the family's questions at bedside in layman's terms to their satisfaction
Critical care statement: A total of 41 minutes of critical care time was provided for this patient today. This includes management of unstable vital signs, evaluation of the patient at bedside, reviewing the patient's pertinent medical records
including radiographs, pressor and inotrope management, diuresis management, microbiology, laboratory evaluations, and discussion with primary team, consultants, pharmacy, nutrition, physical therapy, case management, charge nurse, critical care
nursing, and respiratory therapy.
Diagnostic data:
CXR 10/01/21: cardiomegaly with slightly prominent pulmonary vascularity which could represent mild CHF vs atypical acute pulmonary edema. possible left basilar patchy opacity such as pna������
��
Chest x-ray 12/10/21-NAD
Chest x-ray 08/22/2024-no acute disease in the chest, cardiomegaly, waterbed configuration
CT Chest 09/29/21: no PE. small bilateral pleural effusions. mild peripheral ground glass densities in lower lung zones b/l suggesting mild residual pna.��
CT chest 07/11/23-no pulmonary embolism, minimal right pleural effusion, minimal pleural thickening left hemithorrax, no adenopathy or nodules.
CT chest 07/31/2024-small right pleural effusion, moderate ascites, liver contour appears to be subtly nodular suggestive of cirrhosis, basilar atelectasis
Abdominal ultrasound 08/22/2024 - mild abdominal pelvic ascites, slightly progressed. Moderate right pleural effusion.
US BLE 10/01/21: negative for DVT������������������
ECHO 08/11/21: ischemic heart disease with mildly reduced systolic function. LV EF 40-45%. moderate LVH. RV base mildly enlarged. Tricuspid and mitral regurgitation. s/p bioprosthetic aortic valve prosthesis.�������
Nuclear stress test 06/12/21-EF 25%, moderate risk study�������
Echocardiogram 06/28/23-EF 20-25%, stage II diastolic dysfunction, bioprosthetic aortic valve, PA systolic 45, rhythm atrial fibrillation�������
Stress test 07/13/23-revealed a moderate in size, medium severity fixed basal to distal inferior and inferoseptal perfusion defect, EF 21%, overall high risk study.�������
Echo 02/16/2024: EF 25%. Global hypokinesis with basal inferior and basal inferolateral akinesis. Stage III diastolic dysfunction. Moderate to severe MR. Severely dilated left atrium. #23 bovine aortic valve with peak/mean gradient 46/29 mmHg.
Mild AI. Mild TR. PAP 35 mmHg
Echo 07/14/2024: EF 25-30% with global hypo, enlarged RV, ICD in place well seated #23 bovine AVR with peak/mean grad of 27/19 mmHg respectively, trace pericardial effusion.
Echo 08/21/24: EF 15-20%, AVR with mean gr 30, PA 30
Cardioversion 07/23/23-successful cardioversion from atrial fibrillation to sinus rhythm.
Cardiac catheterization 03/28/2024: LM: LI. LAD: Moderate to severe diffuse atherosclerotic plaque. D2 has 30% stenosis. Left circumflex: Mid 60 to 70% stenosis. RCA: LI.
HEMODYNAMICS : (mmHg) RA (m) : 22; RV (s/d,m) : 72/14, 24; PA (s/d, m) : 72/34, 50; PCWP (m) : 34, V waves to 53 mmHg; PA saturation: 62.5% on room air; AO saturation: 93.6% on room air;
Cardiac Output : 5.58 L/min; Cardiac Index : 2.23 L/min/m-2; Systemic vascular resistance: 889 dsc^(-5); Pulmonary vascular resistance: 2.87 willams unit; AO (s/d) : 102/61; LV (s/d) : 131/21; LVEDP : 30
Estimated invasive transaortic gradient of 27 mmHg, aortic valve area 1.3 cm�
Significantly elevated right and left-sided filling pressures with severe pulmonary hypertension and normal cardiac output. Borderline low systemic vascular resistance.
PFT 12/19/21-FEV1 2.55-72%, FVC 3.77 L-70%, no significant response, TLC 80%, 90%, DLCO 64%. Mild obstruction and moderate reduction in diffusing capacity.�������
Spirometry 07/29/23-FEV1 1.18-34%, FVC 1.5-39%, no significant BD response. Severe obstruction.
Subjective Dataa
Subjective Data
Date of Service:
Date of Service: August 27, 2024
Chief Complaint: [employer] [facility] Professor Follow Up and Pulmonary Follow Up
Subjective:
Patient seen today at bedside. Multiple family members at bedside. Afebrile overnight. Currently on dobutamine at 7.5mcg/kg/min, with heart rate 91 and BP via A-line: 108/62. He is on room air breathing comfortably and saturating 95%. He says
he feels well at rest. Denies GUTHRIE, chest pain, nausea, fevers or chills. Creatinine stable today 1.8. Weight down to 274 pounds, and he is net -1.9 L over the last 24 hours. He has been refusing his BiPAP for the last 2 days.
Review of Systems
General: Other (Negative unless mentioned above)
Objective Data
Data Reviewed
Vital Signs / I&O / Oxygen:
Vital Signs
Temp Pulse Resp BP Pulse Ox
98.0 F 95 18 92/52 95
08/27/24 08:15 08/27/24 08:26 08/27/24 08:00 08/27/24 08:26 08/27/24 08:00
Intake and Output
08/26/24 08/27/24 08/28/24
06:59 06:59 06:59
Intake Total 1701.4 / 1731.9 2154.4 / 2194.1 579.4 / 579.4
Output Total 1610 / 1660 1620 / 1695 150 / 150
Balance 91.4 / 71.9 534.4 / 499.1 429.4 / 429.4
SaO2 95
Nasal Cannula flow liters per 2
minute
Physical Exam
General: Respiratory Distress (negative), Comfortable and Other (Morbidly obese)
HEENT: Normocephalic and Anicteric
Cardiovascular: S1-S2, Rub (negative), Peripheral Edema (+2 lower extremity pitting edema bilaterally) and Other
Respiratory: Wheeze (negative), Crackles (Bilateral (mainly posteriorly)), Rhonchi (negative) and Non-Labored Respirations
GI: Soft, Distended (Abdominal obesity), Non Tender and Normal Bowel Sounds
Neurology: AO x 3 and Tremors (negative)
Skin: Warm, Dry, Cyanosis (negative) and Jaundice (negative)
Labs/Micro/Reports
Lab Data
08/27/24 03:06
08/27/24 03:06
Laboratory Results
08/27/24
03:06
APTT 106.2 H
[2024-08-27] MEDS: MIRALAX 17 GRAMS PO (08:25)
[2024-08-27] MEDS: DOBUTREX 500 MG 250 IV (08:25)
[2024-08-27] MEDS: IMDUR (EXTENDED RELEASE) 30 MG PO (08:25)
[2024-08-27] MEDS: TYLENOL 650 MG PO ×2 (08:25→14:30)
[2024-08-27] MEDS: ZAROXOLYN 10 MG PO (08:25)
[2024-08-27] MEDS: SENOKOT-S 1 TABLET PO (08:26)
[2024-08-27] MEDS: PACERONE 200 MG PO (08:26)
[2024-08-27] MEDS: ASPIR LOW (ENTERIC COATED) 81 MG PO (08:26)
[2024-08-27] MEDS: APRESOLINE PO (08:26)
[2024-08-27] MEDS: LASIX 160 MG IV ×2 (08:26→12:31)
[2024-08-27] MEDS: NOVOLOG FLEXPEN-HIGH RESISTANCE 2 UNITS SC (08:27)
--- NOTE | 2024-08-27 08:50 | PTCARENOTE ---
pt aaox3. states nerve pain in left leg tylenol given. vpaced seen on monitor. pt states no cp or sob. room air breath sounds diminished. dobutamine and heparin gtt running as ordered. right cordis in place. ross care done.
--- NOTE | 2024-08-27 09:11 | W.PN.CARDCBS ---
Today's Communication / Plan
-
Maintain current dose dobutamine
Consider options for more aggressive diuresis
Will discuss with TAVR team tomorrow potential benefit of more urgent evaluation/inpatient evaluation
Impression / Plan
-
PCP: Dr. Chintan Gonzalez
Cardiology: Dr. Gabriel
Impression
H/O Obesity, HTN, HLD, T2DM, Afib on eliquis, Hx of LBBB, hx of BioAVR and 1 vessel CABG, JAMES not compliance on CPAP, s/p ICD presents to feed mill lab technician for elective RHC. . He was previously on Lasix, later trialed on Bumex (developed rash) and now is on
Torsemide.
RHC on 08/21/24 finds markedly elevated filling pressures with pulmonary capillary wedge pressure of 35 and severely depressed cardiac index of 1 with cardiac output of 2.34.
RHC on 08/22/[address] SG catheter and demonstrated elevated filling pressures with pulmonary capillary wedge pressure of 27, elevated pulmonary pressures of 65/28, cardiogenic shock with cardiac index of 1.75
Acute on chronic HFrEF with cardiogenic shock
JAI
Cardiomyopathy, mixed without improved ejection fraction despite optimal medical therapy
s/p Medtronic biventricular ICD 07/07/2024
LBBB
CAD
s/p bio AVR 2009
Paroxysmal atrial fibrillation
s/p cv 07/23/2023 Chronic AC w/ Eliquis
h/o NSVT
h/o COVID September 2021
HTN
HLD
DM2
JAMES not using CPAP
h/o cough syncope
Radiculopathy
Depression
Ocular migraines
Renal calculi
Arthritis
Lexiscan sestamibi stress test 07/13/2023: Moderate sized medium in severity fixed basal to distal inferior, basal to mid inferoseptal, small mid anterior perfusion defect with no evidence of ischemia. Ejection fraction 21% with severe global
hypokinesis
Cardiac catheterization 03/28/2024: LM: LI. LAD: Moderate to severe diffuse atherosclerotic plaque. D2 has 30% stenosis. Left circumflex: Mid 60 to 70% stenosis. RCA: LI.
HEMODYNAMICS : (mmHg) RA (m) : 22; RV (s/d,m) : 72/14, 24; PA (s/d, m) : 72/34, 50; PCWP (m) : 34, V waves to 53 mmHg; PA saturation: 62.5% on room air; AO saturation: 93.6% on room air;
Cardiac Output : 5.58 L/min; Cardiac Index : 2.23 L/min/m-2; Systemic vascular resistance: 889 dsc^(-5); Pulmonary vascular resistance: 2.87 willams unit; AO (s/d) : 102/61; LV (s/d) : 131/21; LVEDP : 30
Estimated invasive transaortic gradient of 27 mmHg, aortic valve area 1.3 cm�
Significantly elevated right and left-sided filling pressures with severe pulmonary hypertension and normal cardiac output. Borderline low systemic vascular resistance.
RHC 08/21/24: RA 30, PA 63/38, PCWP 35-42, CO/CI 2.3/0.96, SVR 1880
RHC 08/23/24: RA 15, PA 65/28, PCWP 27, CO/CI 4.47/1.75, PA sat 65.6%, SVR 1432, PVR 3.81
Echo 01/2022: Ejection fraction 40%, global hypokinesis, status post AVR with mean gradient of 10 mmHg
Echo 06/28/2023: Dilated right ventricle with ejection fraction of 20 to 25%, status post bioprosthetic AVR with mean gradient of 15 mmHg, dilated right heart with PA systolic of 45 mmHg
Echo 08/03/2023: Ejection fraction 25 to 30%, hypokinetic septum, apex, inferior, anterior and distal lateral pelletier, mild concentric LVH, moderate MR, status post bioprosthetic AVR with mean gradient of 13 mm hG
Echo 02/16/2024: EF 25%. Global hypokinesis with basal inferior and basal inferolateral akinesis. Stage III diastolic dysfunction. Moderate to severe MR. Severely dilated left atrium. #23 bovine aortic valve with peak/mean gradient 46/29 mmHg.
Mild AI. Mild TR. PAP 35 mmHg
Echo 07/14/2024: EF 25-30% with global hypo, enlarged RV, ICD in place well seated #23 bovine AVR with peak/mean grad of 27/19 mmHg respectively, trace pericardial effusion.
Echo 08/21/24: EF 15-20%, AVR with mean gr 30, PA 30
Plan:
Critically ill
Cardiogenic shock seems to be a combination of progressive heart failure/LV dysfunction and also likely some component of progressive bioprosthetic aortic valve stenosis.
Eunice-Pradeep catheter in place (placed 08/22/24) to assist in management of cardiogenic shock and inotropic therapy
Eunice-Pradeep catheter was pulled as patient was being repositioned in bed, this was on August 26, 2024
Initiated on and up titration of dobutamine for inotropic support, dobutamine up to 7.5 mcg/kg/min as of August 26, 2024 afternoon
Blood pressures have improved
There has not been much improvement in urine output despite ionotropic support, improved blood pressure and higher dose diuretic
Hydralazine and nitrates initiated for afterload reduction (not on ARB/ARNI due to renal insufficiency)
Consider Entresto when renal function and blood pressure stabilizes
Hold off on BB in the setting of shock, would eventually reintroduce as we wean dobutamine and his blood pressure stabilizes
No SGLT2 inhibitor at this time given hypotension with an acute kidney injury
Continue attempts at aggressive diuresis with IV Lasix as well as oral metolazone
Weight is essentially stable past 24-48 hours, fluid balance is +500 cc overnight
Can consider up titration of diuretics, possibly consider furosemide infusion, await renal recommendations
Atrial fibrillation
-Cont amio/heparin for h/o atrial fibrillation
Aortic stenosis
-Initially, plan was for TAVR workup in the near future. However I wonder if he needs more urgent inpatient evaluation for TAVR
Will ask TAVR our team for consultation
Acute on chronic kidney disease currently in the setting of cardiorenal syndrome
-Support hemodynamics as noted above
-Continue aggressive diuresis, renal function is improving (creatinine now down to 1.8), renal is following closely.
-Has not been making much urine output despite higher dose diuretic, check bladder scan
Discussed with with ICU nursing
Discussed with his at bedside.
Critical care time 35-minutes
Progress Note - Systems Operator
Subjective
Date of Service: August 27, 2024
He tells me he feels better and that he feels more energetic. No chest pain. Not short of breath at rest
Objective
Labs:
08/27/24 03:06
08/27/24 03:06
Labs
Hgb 13.2 g/dL (13.0-18.0) 08/27/24 03:06
Hct 40.2 % (39.0-52.0) 08/27/24 03:06
Plt Count 78 10^3/uL (130-400) L 08/27/24 03:06
APTT 106.2 Sec (23.4-35.0) H 08/27/24 03:06
Sodium 131 mmol/L (135-145) L 08/27/24 03:06
Potassium 3.8 mmol/L (3.5-5.1) 08/27/24 03:06
BUN 66 mg/dl (9-20) H 08/27/24 03:06
Creatinine 1.8 mg/dL (0.7-1.3) H 08/27/24 03:06
Glucose 168 mg/dl (70-99) H 08/27/24 03:06
Vital Signs and I&O:
Vital Signs
Temp Pulse Resp BP Pulse Ox
98.0 F 95 18 92/52 95
08/27/24 08:15 08/27/24 08:26 08/27/24 08:00 08/27/24 08:26 08/27/24 08:00
Vital Signs
Temp Pulse Resp BP Pulse Ox
98.0 F 95 18 92/52 95
08/27/24 08:15 08/27/24 08:26 08/27/24 08:00 08/27/24 08:26 08/27/24 08:00
Intake & Output
08/25/24 08/26/24 08/27/24 08/28/24
06:59 06:59 06:59 06:59
Intake Total 2158.5 / 2191.6 1701.4 / 1731.9 2154.4 / 2194.1 579.4 / 579.4
Output Total 1775 / 1850 1610 / 1660 1620 / 1695 150 / 150
Balance 383.5 / 341.6 91.4 / 71.9 534.4 / 499.1 429.4 / 429.4
Physical Exam
Physical Exam
He is well-appearing
Skin is pink and warm
Regular rate and rhythm with normal S1 and S2, there are is no S3 there is no S4, there is a grade 2/6 basal systolic ejection murmur, no rubs
Lungs decreased inspiratory effort bilaterally otherwise clear
Extremities with +2 lower extremity pitting edema
Abdomen soft nontender and nondistended
Neurologic exam is grossly nonfocal
--- NOTE | 2024-08-27 09:34 | PTCARENOTE ---
right groin penis and scrotal bruising noted. area soft. bladder scan done per dr request. scanned for 50cc
--- NOTE | 2024-08-27 10:32 | W.PN.HOSP.TC ---
Addendum entered and electronically signed by Cande Vasquez MD 08/27/24 10:35:
correction: Polo removed 08/26
Original Note:
Today's Communication/Plan
-
continue IV Lasix
continue Dobutamine
Assessment / Plan
Assessment / Plan
Assessment:
Acute on chronic heart failure with reduced ejection fraction, EF 25-30%
Cardiomyopathy, mixed without improved ejection fraction despite optimal medical therapy
s/p Medtronic biventricular ICD 07/07/2024
- BNP 17,500
- s/p RHC with Severely elevated right and left-sided filling pressures with severe pulmonary hypertension and severely reduced cardiac output (cardiac index .96) in the setting of elevated systemic vascular resistance. Wedge 35.
- s/p swan Pradeep cath placement 08/22
- s/p Milrinone. now placed on Dobutamine, currently 7.5mcg
- continue IV Lasix increased to 160mg BID- requires intensive monitoring of weights, lytes, I/Os. metolazone daily. Consider Lasix daily drip.
- sodium/fluid restriction
- hold GDMT therapy for now; Aldactone/BB held. on Hydralazine/Imdur for afterload reduction
- DCA cards following
JAI on CKD stage 3b, acute cardiorenal state
Hyponatremia
- Nephrology following
JAMES not using CPAP at home
- continue nocturnal BIPAP
- Pum following
Hypokalemia, replete as needed
Abdominal distention
- mild ascites on US
LBBB
Hx NSVT
- s/p Medtronic biventricular ICD 07/07/2024
History of atrial fibrillation s/p cv 07/23/2023
- continue Amiodarone
- IV Heparin drip requires intensive monitoring of PTTs; holding Eliquis in case additional support procedures needed for advanced CHF
History of COVID September 2021
HTN
- Aldactone/BB held. on Hydralazine with Cardiology titrating
HLD
- continue statin
DM2
- hold Jardiance
- continue SSI
- A1c: 7.2% recently
CAD s/p 1 vessel CABG 2009
- continue ASA/Statin
s/p bioAVR 2009
H/o Cough syncope
Radiculopathy
Depression - on Zoloft
Ocular migraines
Renal calculi
Arthritis
DVT ppx: IV Heparin
Code: Full code after re-discussed with daughter
Total Critical Care Time 42 minutes. I was immediately available to the patient and staff. I personally examined, reviewed labs, diagnostic images/reports, interpretations, treatment plans, discussed patient care with other providers and family
or caregivers (if patient is unable to make decisions), entered orders as appropriate and documented the medical record.
Anticipated Discharge: > 48 hours
Subjective/Interval History
-
Date of Service: August 27, 2024
feels more energetic
weight down 1kg on high dose IV Lasix BID
on Dobutamine 7.5
denies cp or sob
Objective Data
-
Labs:
Laboratory Results
08/27/24
03:06
WBC 7.9
Hgb 13.2
Hct 40.2
Plt Count 78 L
APTT 106.2 H
Sodium 131 L
Potassium 3.8
Chloride 93 L
Carbon Dioxide 27
BUN 66 H
Creatinine 1.8 H
Glucose 168 H
Calcium 8.4
Vital Signs:
Vital Signs
Temp Pulse Resp BP Pulse Ox
98.0 F 95 18 92/52 95
08/27/24 08:15 08/27/24 08:26 08/27/24 08:00 08/27/24 08:26 08/27/24 08:00
I&O
08/26/24 08/27/24 08/28/24
06:59 06:59 06:59
Intake Total 1701.4 / 1731.9 2154.4 / 2194.1 658.8 / 658.8
Output Total 1610 / 1660 1620 / 1695 300 / 300
Balance 91.4 / 71.9 534.4 / 499.1 358.8 / 358.8
Physical Exam
-
General: No Apparent Distress
HEENT: Normocephalic, Atraumatic and Other (+ [place]olski)
Respiratory: Negative Wheezes
Cardiac: Regular Rhythm and S1/S2
GI: Soft
Genito-urinary: No Costovertebral Tender
Neuro: AO x 3
Hematologic / Lymphatic: No Lymphadenopathy
Psych: Calm
Data Reviewed
-
Critical Care Time (in minutes): 42
Labs: Labs Reviewed by me
--- NOTE | 2024-08-27 11:44 | W.PN.NEPH.PH ---
Today's Communication / Plan
-
Still not achieving negative fluid balance with the increase Lasix 160 mg twice daily.
He likely will not have a better response to a Lasix drip but I will give it a try with 160 mg bolus prior to starting.
Continue metolazone.
Also initiate albumin which may help facilitate diuresis.
Assessment/Plan
-
74 y/o M, hx of Obesity, HTN, HLD, T2DM, Afib on eliquis, Hx of LBBB, hx of BioAVR and 1 vessel CABG, JAMES not compliance on CPAP, s/p ICD presents to blood bank laboratory technologist for elective RHC. . He was previously on Lasix, later trialed on Bumex (developed rash)
and now is on Torsemide. Today's RHC showed cardiac index of 1.0 and elevated wedge pressures of 37
renal consult for acute on chronic kidney disease with a baseline creatinine 1.6-1.8 with admitting creatinine 2.2.
Impression:
Acute on chronic kidney disease secondary to cardiorenal
acute CHF status post right heart cath cardiac output severely diminished with ejection fraction 15 to 20%
atrial fibrillation rate controlled
CAD/CHF/ICD
plan:
Creatinine improving to 1.9 in setting of cardiorenal syndrome
Remains hemodynamically labile on inotropic support
Right heart cath reviewed from 08/22/2024 pulmonary capillary wedge pressure 27 cardiac output 4.4 L cardiac index 2.2
monitor daily weights and urine output with Ross catheter
sodium restriction 2 g
I would not add SGLT2 inhibitor at this time given hypotension with an acute kidney injury
Patient still remains volume overloaded
creatinine on admission 2.2 and remains now at 1.9
no acute need for dialysis and going forward it would be difficult to pursue dialysis if indicated in the setting of severe cardiomyopathy and profound hemodynamic instability and therefore not a candidate
Patient remains critically ill on inotropic support and IV diuresis for decompensated CHF
Discussed with family at the bedside today
Still not achieving negative fluid balance with the increase Lasix 160 mg twice daily.
He likely will not have a better response to a Lasix drip but I will give it a try with 160 mg bolus prior to starting.
Continue metolazone.
Also initiate albumin which may help facilitate diuresis.
Ultimately would like to use Bumex although he has had a severe rash in the past when using it.
Total Time Spent with Patient (in minutes): 32
-
-
Date of Service: August 27, 2024
CC / HPI / ROS
-
Chief Complaint:
Shortness of breath
History of Present Illness:
Acute on chronic kidney disease secondary to CHF improving clinically
Creatinine at 1.9
Hemodynamically labile on inotropic support
Review of Systems:
Continue shortness of breath
Nonoliguric via ross
Weight up
Labs
-
Labs:
WBC 7.9 10^3/uL (4.8-10.8) 08/27/24 03:06
RBC 4.57 10^6/uL (4.70-6.10) L 08/27/24 03:06
Hgb 13.2 g/dL (13.0-18.0) 08/27/24 03:06
Hct 40.2 % (39.0-52.0) 08/27/24 03:06
Plt Count 78 10^3/uL (130-400) L 08/27/24 03:06
Sodium 131 mmol/L (135-145) L 08/27/24 03:06
Potassium 3.8 mmol/L (3.5-5.1) 08/27/24 03:06
Chloride 93 mmol/L (98-107) L 08/27/24 03:06
Carbon Dioxide 27 mmol/L (22-30) 08/27/24 03:06
BUN 66 mg/dl (9-20) H 08/27/24 03:06
Creatinine 1.8 mg/dL (0.7-1.3) H 08/27/24 03:06
eGFR 38.53 08/27/24 03:06
Glucose 168 mg/dl (70-99) H 08/27/24 03:06
Calcium 8.4 mg/dl (8.4-10.2) 08/27/24 03:06
Izf-J-Giheujxuyxu Pept 54512 pg/ml 08/21/24 17:10
Albumin 3.7 g/dl (3.5-5.0) 08/25/24 03:15
Physical Exam
-
Vital Signs:
Vital Signs
Temp Pulse Resp BP Pulse Ox
98.0 F 95 18 92/52 95
08/27/24 08:15 08/27/24 08:26 08/27/24 08:00 08/27/24 08:26 08/27/24 08:00
Cardiovascular:: Regular rate and rhythm
Respiratory:: Bilateral: Coarse
Lung Excursion:: Normal
Abdomen:: Soft
Bowel Sounds:: Normal
Extremity Edema:: +2: Bilateral: (Anasarca)
Ross Catheter: Yes
[2024-08-27 12:18] LABS: Glucose - Point of Care 258 mg/dl (70-99)
[2024-08-27] MEDS: LASIX 50 IV (12:31)
[2024-08-27] MEDS: FLEXBUMIN 100 IV ×2 (12:32→19:54)
[2024-08-27] MEDS: NOVOLOG FLEXPEN-HIGH RESISTANCE 7 UNITS SC (12:32)
[2024-08-27] MEDS: CRESTOR 10 MG PO (17:05)
[2024-08-27] MEDS: NOVOLOG FLEXPEN-HIGH RESISTANCE 4 UNITS SC (17:05)
[2024-08-27] MEDS: APRESOLINE 37.5 MG PO ×2 (17:05→21:26)
[2024-08-27 17:12] LABS: Glucose - Point of Care 200 mg/dl (70-99)
[2024-08-27] MEDS: HEPARIN 25000 UNITS/250 ML IV (18:55)
[2024-08-27 19:53] VITALS: BP 93/67
[2024-08-27 20:00] VITALS: BP 93/67
--- NOTE | 2024-08-27 20:00 | PTCARENOTE ---
Rec'd pt resting in bed, denies pain, cooperative, follows commands, AV paced, Vpaced, R rad chino w/ good wave form, flushes well, accurate to [place] tubing & drsfg changed, dobutamine gtt at 7.5 keely, hep gtt at 1200 units, lasix gtt at
20mg/hr, weak distal pulses, + LE edema, skin warm/dry, RA, lungs decr in bases, reaches 1000 on IS<sat 99, refused to wear bipap hs, + bowel sounds, had sm brown soft bm, abd obese, soft, no n/v ross draining aylin urine
[2024-08-27] MEDS: SENOKOT-S PO (20:23)
[2024-08-27] MEDS: ZOLOFT 50 MG PO (21:27)
[2024-08-27] MEDS: LANTUS 0.15 UNITS SC (21:27)
[2024-08-27] MEDS: XALATAN OPHTHALMIC SOLUTION 1 DROP RIGHT EYE (21:28)
[2024-08-27 21:34] LABS: Glucose - Point of Care 156 mg/dl (70-99)
--- NOTE | 2024-08-28 | PTCARENOTE ---
sys reviewed, changes noted, CHG bath done, linens changed
[2024-08-28] MEDS: DOBUTREX 500 MG 250 IV ×3 (00:25→17:40)
[2024-08-28] MEDS: FLEXBUMIN 100 IV (03:41)
[2024-08-28 03:49] LABS: Venous Blood Gas B.E. 4.3 mmol/L (-4 to +4); Venous Blood Gas HCO3 27.1 mmol/L (22-27); Venous Blood Gas O2 Sat % 99.8 %; Venous Blood Gas pCO2 34 mmHg (35-48); Venous Blood Gas pH 7.51 (7.32-7.43); Venous Blood Gas pO2 169 mmHg (30-50)
[2024-08-28 03:52] LABS: Venous Blood Gas O2 Therapy 21%
--- NOTE | 2024-08-28 04:00 | PTCARENOTE ---
sys reviewed, changes noted
[2024-08-28 04:12] LABS: Hematocrit 39.4 % (39.0-52.0); Hemoglobin 12.9 g/dL (13.0-18.0); Mean Corp Hgb Conc. 32.7 g/dL (33.0-37.0); Mean Corpuscular Hgb 28.7 pg (27.0-31.0); Mean Corpuscular Volume 87.8 fL (80.0-94.0); Mean Platelet Volume 12.2 fL (7.4-10.4); Platelet Count 78 10^3/uL (130-400); Red Blood Cell Count 4.49 10^6/uL (4.70-6.10); Red Cell Dist. Width 15.6 % (11.5-14.5); White Blood Cell Count 9.3 10^3/uL (4.8-10.8)
[2024-08-28 04:16] LABS: APTT 88.1 Sec (23.4-35.0)
[2024-08-28 04:30] LABS: Blood Urea Nitrogen 66 mg/dl (9-20); Calcium 8.4 mg/dl (8.4-10.2); Carbon Dioxide 25 mmol/L (22-30); Chloride 91 mmol/L (98-107); Estimated Creatinine Clearance 43 ml/min; Glucose 150 mg/dl (70-99); Potassium 3.9 mmol/L (3.5-5.1); Sodium 129 mmol/L (135-145); eGFR 33.95
[2024-08-28 05:22] VITALS: BMI 38.2
--- NOTE | 2024-08-28 08:00 | PTCARENOTE ---
Assumed care of patient. Pt rec'd A&Ox3. Pleasant. Denies any pain. No SOB at rest. +HUSSEIN. Pt feeling mildly depressed..frustrated w/ situation. Would like to know options....would possibly like to go home. Will discuss w/ MD's. S1 S2 reg
and distant w/ + murmur...vpacing noted on monitor. Left chest pacer/AICD. SCD's on. On R/A..sats 93%. Lungs clear but diminished in bases. Dry NPC. IS done...1000mls. Abdomen obese...+hyper BS. Temp sensing ross draining aylin
urine...ross care done. Skin pale in color...flushed face. Right groin puncture site..ecchymosis noted. Right radial chino....flushed and zeroed. RIJ cordis and 2 peripheral INT's. Heparin, lasix, and dobutamine gtts infusing...see
interventions. 1800 scarlett ada diet...will discuss fluid restriction w/ power plant electrician. Takes po meds whole w/o issue. VS documented. Call alvarez within reach. Will continue to monitor.
[2024-08-28] MEDS: APRESOLINE 37.5 MG PO ×3 (08:20→21:30)
[2024-08-28] MEDS: NOVOLOG FLEXPEN-HIGH RESISTANCE 2 UNITS SC ×3 (08:22→16:21)
[2024-08-28] MEDS: ASPIR LOW (ENTERIC COATED) 81 MG PO (08:23)
[2024-08-28] MEDS: ZAROXOLYN 10 MG PO (08:23)
--- NOTE | 2024-08-28 08:23 | W.PN.INTV ---
Addendum entered and electronically signed by Richy Obrien MD 08/28/24 15:15:
Prior PFT from November 2023 reviewed, showing moderate COPD with significant bronchodilator response, and normalization of a moderate gas exchange capacity defect. This does raise a question for underlying asthma versus reactive airway disease. I
will start him on Symbicort with Xopenex/Atrovent 3 times daily. Also has a recent CT chest from July 2024 with nodular contour of the liver suggesting cirrhosis. GI consult placed by me after speaking with cardiology, Dr. Obando. Still
awaiting CT surgery's input regarding candidacy for TAVR.
Original Note:
Today's Communication / Plan
Recommendations
Continue lasix gtt
Trend UOP and sCr
If refractory to diuretics can consider hemodialysis, which the pt does not want
Strict I/O
Aspiration precautions
Up OOB as tolerated
PT/OT
Keep K>4, Mg>2
Defer TAVR to cardiology
If pt not a candidate for a TAVR, he may want to go home on hospice as he 'can not do this anymore.'
Marriage And Family Social Worker services will continue to follow along while he remains in ICU
Assessment
-
74-year-old obese occasional cigar smoking male with a history of hypertension, hyperlipidemia, CAD/CABG, diabetes, atrial fibrillation and JAMES/CPAP intolerant recently had AICD placed with subsequent history of difficult to control CHF underwent
elective right heart catheterization noted to have severely elevated filling pressures with low cardiac index necessitating ICU/pulmonary artery catheter/inotropes-upholstery restorer consulted for CHF/critical care management 08/22/2024.
CHF-acute on top of chronic with reduced EF
Cardiomyopathy status post recent biventricular ICD 07/07/2024
JAI with suspected cardiorenal syndrome
Hyperglycemia
Hypocalcemia
Elevated LFTs
Right sided pleural effusion
Obesity
Conditions present prior to admission:
Hypertension.
Hyperlipidemia.
Diabetes.
CAD/CABG/AVR.
Cardiomyopathy-EF 20%
ICD June 2025.
JAMES/CPAP intolerant.
Atrial fibrillation on Eliquis.
Abnormal CT abdomen-suggestive of cirrhosis 07/2024
Varicocele repair. Lumbar discectomy 2021. Repair ascending aortic aneurysm/AVR-bovine.
Plan
Patient critically ill and admitted to ICU to obtain pulmonary artery catheter, inotropes, diuresis-extensive cardiac and pulmonary workup summarized below
- He remains on dobutamine gtt and now lasix gtt
- [place]-Pradeep has been removed (08/26/2024)
Supplemental oxygen as needed to keep SpO2 >90%
Incentive spirometry q1hr while awake
CPAP or BiPAP at night as tolerated-in the past has been intolerant-willing to use --> did not tolerate BiPAP overnight 08/25 - 08/26/2024, and refused again last night and the night before --> I will DC
- Blood gas this morning (08/28) shows metabolic alkalosis with appropriate respiratory compensation
Aspiration precautions
Nebulizers if needed-currently not bronchospastic
s/p prednisone taper (completed on 08/24/2024) - was not for pulmonary-had rash possibly Bumex related as an outpatient
Cardiology following-correspondence reviewed
Right heart catheterization results reviewed-significantly elevated filling pressures with low cardiac index-[facility] 08/21/24: RA 30, PA 63/38, PCWP 35-42, CO/CI 2.3/0.96, SVR 1880, PVR: 6.85 FARRAR
Pulmonary artery catheter placement-08/22/2024-improvement in cardiac index, PCWP, RA-pressure, SVR + PVR
PAC was removed on 08/26/2024 after it malpositioned ([place]-Pradeep was accidentally withdrawn somehow by the patient)
Continue diuresis as tolerated-intensified per nephrology - now on lasix gtt as of 08/27/2024
Inotropes continue-currently on dobutamine s/p milrinone
Monitor renal function, electrolytes, intake/output, lower extremity edema and weight
Replace electrolytes as needed
PO amiodarone continues as well
Heparin drip continues-Eliquis on hold--eventual change back
Eventually start GDMT
Monitor renal function
Replace electrolytes
Acute cardiorenal state
Nephrology following-correspondence reviewed
Monitor ascites-not enough fluid for diagnostic or therapeutic paracentesis per abdominal ultrasound on 08/22/2024
Abdominal ultrasound summarized below
Trend LFTs
Liver appeared normal on recent abdominal ultrasound on 08/01/2024, hence doubtful he has cirrhosis
Monitor MSAS-no signs of withdrawal
Alcohol withdrawal treatment protocol if indicated
Ativan as needed - not currently indicated
Monitor blood sugar with goal 140-180
Insulin supplementation as needed with basal�bolus SQ insulin dose
Last saw Dr. Mars/Gabrielle Macario CNP on 11/29/[address] Mars reviewed with as well as daughter at the bedside 08/22/2024, 08/23/2024, 08/24/2024, 08/25/[address] Obrien answered all the family's questions at bedside in layman's terms to their satisfaction
Critical care statement: A total of 38 minutes of critical care time was provided for this patient today. This includes management of unstable vital signs, evaluation of the patient at bedside, reviewing the patient's pertinent medical records
including radiographs, pressor and inotrope management, diuresis management, microbiology, laboratory evaluations, and discussion with primary team, consultants, pharmacy, nutrition, physical therapy, case management, charge nurse, critical care
nursing, and respiratory therapy.
Diagnostic data:
CXR 10/01/21: cardiomegaly with slightly prominent pulmonary vascularity which could represent mild CHF vs atypical acute pulmonary edema. possible left basilar patchy opacity such as pna������
��
Chest x-ray 12/10/21-NAD
Chest x-ray 08/22/2024-no acute disease in the chest, cardiomegaly, waterbed configuration
CT Chest 09/29/21: no PE. small bilateral pleural effusions. mild peripheral ground glass densities in lower lung zones b/l suggesting mild residual pna.��
CT chest 07/11/23-no pulmonary embolism, minimal right pleural effusion, minimal pleural thickening left hemithorrax, no adenopathy or nodules.
CT chest 07/31/2024-small right pleural effusion, moderate ascites, liver contour appears to be subtly nodular suggestive of cirrhosis, basilar atelectasis
Abdominal ultrasound 08/22/2024 - mild abdominal pelvic ascites, slightly progressed. Moderate right pleural effusion.
US BLE 10/01/21: negative for DVT������������������
ECHO 08/11/21: ischemic heart disease with mildly reduced systolic function. LV EF 40-45%. moderate LVH. RV base mildly enlarged. Tricuspid and mitral regurgitation. s/p bioprosthetic aortic valve prosthesis.�������
Nuclear stress test 06/12/21-EF 25%, moderate risk study�������
Echocardiogram 06/28/23-EF 20-25%, stage II diastolic dysfunction, bioprosthetic aortic valve, PA systolic 45, rhythm atrial fibrillation�������
Stress test 07/13/23-revealed a moderate in size, medium severity fixed basal to distal inferior and inferoseptal perfusion defect, EF 21%, overall high risk study.�������
Echo 02/16/2024: EF 25%. Global hypokinesis with basal inferior and basal inferolateral akinesis. Stage III diastolic dysfunction. Moderate to severe MR. Severely dilated left atrium. #23 bovine aortic valve with peak/mean gradient 46/29 mmHg.
Mild AI. Mild TR. PAP 35 mmHg
Echo 07/14/2024: EF 25-30% with global hypo, enlarged RV, ICD in place well seated #23 bovine AVR with peak/mean grad of 27/19 mmHg respectively, trace pericardial effusion.
Echo 08/21/24: EF 15-20%, AVR with mean gr 30, PA 30
Cardioversion 07/23/23-successful cardioversion from atrial fibrillation to sinus rhythm.
Cardiac catheterization 03/28/2024: LM: LI. LAD: Moderate to severe diffuse atherosclerotic plaque. D2 has 30% stenosis. Left circumflex: Mid 60 to 70% stenosis. RCA: LI.
HEMODYNAMICS : (mmHg) RA (m) : 22; RV (s/d,m) : 72/14, 24; PA (s/d, m) : 72/34, 50; PCWP (m) : 34, V waves to 53 mmHg; PA saturation: 62.5% on room air; AO saturation: 93.6% on room air;
Cardiac Output : 5.58 L/min; Cardiac Index : 2.23 L/min/m-2; Systemic vascular resistance: 889 dsc^(-5); Pulmonary vascular resistance: 2.87 willams unit; AO (s/d) : 102/61; LV (s/d) : 131/21; LVEDP : 30
Estimated invasive transaortic gradient of 27 mmHg, aortic valve area 1.3 cm�
Significantly elevated right and left-sided filling pressures with severe pulmonary hypertension and normal cardiac output. Borderline low systemic vascular resistance.
PFT 12/19/21-FEV1 2.55-72%, FVC 3.77 L-70%, no significant response, TLC 80%, 90%, DLCO 64%. Mild obstruction and moderate reduction in diffusing capacity.�������
Spirometry 07/29/23-FEV1 1.18-34%, FVC 1.5-39%, no significant BD response. Severe obstruction.
Subjective Dataa
Subjective Data
Date of Service:
Date of Service: August 28, 2024
Chief Complaint: Marriage And Family Social Worker Follow Up and Pulmonary Follow Up
Subjective:
Patient seen and evaluated today at bedside. Afebrile overnight. He is net -837 cc last 24 hours. Lasix gtt started last night - currently at 30mg/hr. Remains on dobutamine at 7.5mcg/kg/min + heparin drip. Creatinine today slightly worsened to 2
from 1.8 yesterday. Per discussion today with nephrology, he may be leaning more towards hospice unless cardiology thinks that he could benefit from a TAVR. BRIDGETTE steiner in place. He is saturating 97% on room air, heart rate 96 and BP via A-line:
103/62. He denies SOB at rest and feels very weak during exertion.
Review of Systems
General: Other (Negative unless mentioned above)
Objective Data
Data Reviewed
Vital Signs / I&O / Oxygen:
Vital Signs
Temp Pulse Resp BP Pulse Ox
97.7 F 92 10 104/62 96
08/28/24 06:57 08/28/24 08:24 08/28/24 06:00 08/28/24 08:24 08/28/24 06:00
Intake and Output
08/27/24 08/28/24 08/29/24
06:59 06:59 06:59
Intake Total 2154.4 / 2194.1 2390.8 / 2390.8
Output Total 1620 / 1695 1240 / 1240
Balance 534.4 / 499.1 1150.8 / 1150.8
SaO2 96
Nasal Cannula flow liters per 2
minute
Physical Exam
General: Respiratory Distress (negative), Comfortable and Other (Morbidly obese)
HEENT: Normocephalic and Anicteric
Cardiovascular: S1-S2, Rub (negative), Peripheral Edema (+2 lower extremity pitting edema bilaterally) and Other
Respiratory: Wheeze (negative), Crackles (Bilateral (mainly posteriorly)), Rhonchi (negative) and Non-Labored Respirations
GI: Soft, Distended (Abdominal obesity), Non Tender and Normal Bowel Sounds
Neurology: AO x 3 and Tremors (negative)
Skin: Warm, Dry, Cyanosis (negative) and Jaundice (negative)
Labs/Micro/Reports
Lab Data
08/28/24 03:39
08/28/24 03:39
Laboratory Results
08/28/24
03:39
APTT 88.1 H
[2024-08-28] MEDS: SENOKOT-S PO (08:24)
[2024-08-28] MEDS: PACERONE 200 MG PO (08:24)
[2024-08-28] MEDS: MIRALAX PO (08:24)
[2024-08-28] MEDS: IMDUR (EXTENDED RELEASE) 30 MG PO (08:24)
[2024-08-28 08:29] LABS: Glucose - Point of Care 151 mg/dl (70-99)
--- NOTE | 2024-08-28 08:37 | W.PN.NEPH.PH ---
Today's Communication / Plan
-
increase diuretics
Assessment/Plan
-
74 y/o M, hx of Obesity, HTN, HLD, T2DM, Afib on eliquis, Hx of LBBB, hx of BioAVR and 1 vessel CABG, JAMES not compliance on CPAP, s/p ICD presents to microbiology lab manager for elective RHC. . He was previously on Lasix, later trialed on Bumex (developed rash)
and now is on Torsemide. Today's RHC showed cardiac index of 1.0 and elevated wedge pressures of 37
renal consult for acute on chronic kidney disease with a baseline creatinine 1.6-1.8 with admitting creatinine 2.2.
Impression:
JAI
CKD (1.6-1.8)
Decompensated heart failure reduced ejection fraction 15%
Atrial fibrillation
ICD
Hyponatremia
Thrombocytopenia
Bioprosthetic aortic valve/
Plan:
Follow BMP
Increase Lasix drip to 30 mg/h
Change metolazone to Diuril twice daily
Patient expressed to me that he was getting tired of this and wanted to go home
We reviewed his current options.
We may still increase diuretics to see if we can get him out of his decompensated state though this would not guarantee or change future heart failure episodes and hospitalizations.
We discussed TAVR. He will discuss with the cardiac team whether or not the TAVR will offer significant quality of life improvement as well as reduction of hospitalization. If it does not, the risk may not be worth it. He has already told me that
he would not consider dialysis.
His third option would be hospice which he seems to be leaning towards at this time.
Critical care time spent 45 minutes
-
-
Date of Service: August 28, 2024
CC / HPI / ROS
-
Chief Complaint:
Shortness of breath
History of Present Illness:
JAI/Cr worse to 2.0
platelets remain low 78
net positive I/O despite lasix gtt and Zaroxolyn
remains on dobutamine for decompensated HFrEF
Na lower 129
Review of Systems:
Continued shortness of breath
no CP
Nonoliguric via ross
Labs
-
Labs:
WBC 9.3 10^3/uL (4.8-10.8) 08/28/24 03:39
RBC 4.49 10^6/uL (4.70-6.10) L 08/28/24 03:39
Hgb 12.9 g/dL (13.0-18.0) L 08/28/24 03:39
Hct 39.4 % (39.0-52.0) 08/28/24 03:39
Plt Count 78 10^3/uL (130-400) L 08/28/24 03:39
Sodium 129 mmol/L (135-145) L 08/28/24 03:39
Potassium 3.9 mmol/L (3.5-5.1) 08/28/24 03:39
Chloride 91 mmol/L (98-107) L 08/28/24 03:39
Carbon Dioxide 25 mmol/L (22-30) 08/28/24 03:39
BUN 66 mg/dl (9-20) H 08/28/24 03:39
Creatinine 2.0 mg/dL (0.7-1.3) H 08/28/24 03:39
eGFR 33.95 08/28/24 03:39
Glucose 150 mg/dl (70-99) H 08/28/24 03:39
Calcium 8.4 mg/dl (8.4-10.2) 08/28/24 03:39
Qzj-K-Xgbcfchbinw Pept 53392 pg/ml 08/21/24 17:10
Albumin 3.7 g/dl (3.5-5.0) 08/25/24 03:15
Physical Exam
-
Vital Signs:
Vital Signs
Temp Pulse Resp BP Pulse Ox
97.7 F 92 10 104/62 96
08/28/24 06:57 08/28/24 08:24 08/28/24 06:00 08/28/24 08:24 08/28/24 06:00
Cardiovascular:: Regular rate and rhythm
Respiratory:: Bilateral: Coarse
Lung Excursion:: Normal
Abdomen:: Nontender and Soft
Bowel Sounds:: Normal
Extremity Edema:: +3: Bilateral:
[2024-08-28] MEDS: LASIX 50 IV ×2 (08:38→21:36)
--- NOTE | 2024-08-28 08:56 | W.PN.HOSP.TC ---
Today's Communication/Plan
-
see note
Assessment / Plan
Assessment / Plan
Acute on chronic heart failure with reduced ejection fraction, EF 25-30%
Cardiomyopathy, mixed without improved ejection fraction despite optimal medical therapy
Cardiogenic shock
s/p Medtronic biventricular ICD 07/07/2024
- BNP 17,500 at admission
- s/p RHC with Severely elevated right and left-sided filling pressures with severe pulmonary hypertension and severely reduced cardiac output (cardiac index .96) in the setting of elevated systemic vascular resistance. Wedge 35.
- s/p swan Pradeep cath placement 08/22
- s/p Milrinone. now placed on Dobutamine, currently 7.5mcg
- Patient have been switched to IV Lasix drip. Getting metolazone 10 mg daily as well
- sodium/fluid restriction
- On hydralazine/Imdur for afterload reduction
- Patient not having appropriate response with continued to have weight gain.
- Prognosis poor at this point. Await cardiology input as considering TAVR.
JAI on CKD stage 3b, acute cardiorenal state
Hypervolemic Hyponatremia
- Na has trended down to 129 today,
- Nephrology following
JAMES not using CPAP at home
- continue nocturnal BIPAP
- Pum following
Hypokalemia, replete as needed
Abdominal distention
- mild ascites on US
LBBB
Hx NSVT
- s/p Medtronic biventricular ICD 07/07/2024
History of atrial fibrillation s/p cv 07/23/2023
- continue Amiodarone
- IV Heparin drip requires intensive monitoring of PTTs; holding Eliquis in case additional support procedures needed for advanced CHF
History of COVID September 2021
HTN
- Aldactone/BB held. on Hydralazine with Cardiology titrating
HLD
- continue statin
DM2
- hold Jardiance
- continue SSI
- A1c: 7.2% recently
CAD s/p 1 vessel CABG 2009
- continue ASA/Statin
s/p bioAVR 2009
H/o Cough syncope
Radiculopathy
Depression - on Zoloft
Ocular migraines
Renal calculi
Arthritis
DVT ppx: IV Heparin
Code: Full code after re-discussed with daughter
Care plan discussed with nephrology.
Total critical care time 38 mins . Total critical care time documented does not include time spent on separately billed procedures or the services of residents, students, nurses or physician assistants. I personally saw and examined the patient. I
have reviewed all diagnostic interpretations and treatment plans as written. I was present for the salcedo portions of any procedures performed and the inclusive time noted in any critical care statement. Critical care time includes patient management
by me, time spent at the patients bedside, time to review lab and imaging results, discussing patient care, documentation in the medical record, and time spent with the family or caregiver.
Anticipated Discharge: 24 - 48 hours
Subjective/Interval History
-
Date of Service: August 28, 2024
Patient depressed, with non-improvement of ongoing heart condition/swelling
no chest pain/shortness breath/abd pain
some abd fullness/no nausea
Objective Data
-
Labs:
Laboratory Results
08/28/24
03:39
WBC 9.3
Hgb 12.9 L
Hct 39.4
Plt Count 78 L
APTT 88.1 H
Sodium 129 L
Potassium 3.9
Chloride 91 L
Carbon Dioxide 25
BUN 66 H
Creatinine 2.0 H
Glucose 150 H
Calcium 8.4
Vital Signs:
Vital Signs
Temp Pulse Resp BP Pulse Ox
97.7 F 92 10 104/62 96
08/28/24 06:57 08/28/24 08:24 08/28/24 06:00 08/28/24 08:24 08/28/24 06:00
I&O
08/27/24 08/28/24 08/29/24
06:59 06:59 06:59
Intake Total 2154.4 / 2194.1 2390.8 / 2390.8
Output Total 1620 / 1695 1240 / 1240
Balance 534.4 / 499.1 1150.8 / 1150.8
Review of Systems
-
Respiratory: Reports No Symptoms
Cardiac: Reports No Symptoms
Abdomen/GI: Denies Abdominal Pain or Nausea
Physical Exam
-
General: No Apparent Distress and Obese
HEENT: Negative Oxygen
Respiratory: Clear to Auscultation
Cardiac: Regular Rhythm and S1/S2; Negative Murmur
GI: Soft, Normal Bowel Sounds and Distended
Musculoskeletal: Edema, Right Lower Extrem and Edema, Left Lower Extrem
Neuro: Awake, Alert and Oriented
--- NOTE | 2024-08-28 08:57 | W.PN.INTV ---
Today's Communication / Plan
Recommendations
Increase rate of lasix drip
If refractory to diuretics can consider hemodialysis
I/O charting
Monitor platelet count
PT/OT
Replete electrolytes as needed
Optimize blood sugar control
Hospice discussion?
Assessment
-
Impression
Mr Carrera is a 74-year-old male with a history of hypertension, hyperlipidemia, CAD/CABG, diabetes, atrial fibrillation and JAMES/CPAP intolerant , AICD in place with subsequent worsening shortness of breath ,underwent elective right heart
catheterization that showed severely elevated filling pressures with low cardiac index necessitating pulmonary artery catheter placement.
Assessment
Acute on chronic with reduced EF(15-20%)
Atrial fibrillation
Cardiogenic shock
Obstructive sleep apnea
Acute on chronic kidney disease secondary to cardiorenal syndrome
Hyperglycemia
Low platelet count
Anxiety
Constipation
Plan
#Acute on chronic with reduced EF(15-20%)
Extensive cardiac history including a CABG/AICD placed in 06/2024 and atrial fibrillation
Cardiomyopathy-EF 20%
Right heart catheterization results 08/21/2024-significantly elevated filling pressures with low cardiac index-[facility] 08/21/24: RA 30, PA 63/38, PCWP 35-42, CO/CI 2.3/0.96, SVR 1880
08/22/2024-Improvement in RIGHT SIDED PRESSURES AND CARDIAC OUTPUT/INDEX
Cardiology consult appreciated
[place]-Pradeep Catheter pulled out on 08/26/2024
Off milrinone,labile hemodynamics,started on dobutamine,Dobutamine dose increased to 7.5mcg/min as blood pressures labile
As per cards -continue to monitor pressures,Continue guideline directed medical therapy as able. Eventually start carvedilol and start SGLT2 inhibitor
Continue diuresis as tolerated-considering Right heart dysfunction
Patient is in positive fluid balance despite max diuresis,now increased lasix infusion to 30mg/hr
Continue heparin infusion
Replete electrolytes as needed,given intense diuresis
#Atrial Fibrillation
Continue amiodarone 200mg daily
Continue heparin infusion
Rate controlled
#CARDIOGENIC SHOCK
Secondary to atrial fibrillation and reduced LVEF
Worsening heart function also attributable to high aortic gradient
Future workup of BioTAVR-As per cards MISAEL before discharge
#JAMES
Refusing Bipap at night
VBGs show Ph of7.5 and carbon dioxide of 34
#Acute on chronic kidney disease secondary to cardiorenal syndrome
Creatinine remains unchanged although right sided pressures in heart are improving
Nephrology consult appreciated
As per Nephro-continue lasix drip,rate increased to 30mg/hr,positive fluid balace of 756.7
continue to trend I/O,daily output
Patient creatinine started to go down,now rising again and is 2.0 today
continue to trend and keep in mind the heart failure aspect while increasing the diuresis
May consider dialysis?
#Hyperglycemia
Patient has blood sugar readings
HbA1c 7.2,07/14/2024
Insulin resistance on sliding scale changed to high
Lantus 15 units added at night,continue to monitor and titrate up as needed
Monitor blood sugar levels
#Low Platelet count
Abdominal ultrasound showed mild abdominopelvic ascites 08/22/2024
FINDINGS: There is mild abdominopelvic ascites. The largest pocket is in the lateral left lower quadrant.
There is a moderate right pleural effusion.
Elevated liver enzymes
On heparin infusion
Dilutional?
Consider GI evaluation for ascites and elevated lfts
#ANXIETY
Continue zoloft
Ativan as needed
Patient feeling better
#CONSTIPATION
Scheduled Sennakot-S and Miralax
Systemic review
Awake and alert
Currently maintaining saturation on room air
off ionotropes-can continue if needed for diuresis
On diabetic diet
Other medical conditions
Hypertension.
Hyperlipidemia.
Diabetes.
CAD/CABG/AVR.
Cardiomyopathy-EF 20%
ICD June 2025.
JAMES/CPAP intolerant.
Atrial fibrillation on Eliquis.
Abnormal CT abdomen-suggestive of cirrhosis 07/2024
Varicocele repair. Lumbar discectomy 2021. Repair ascending aortic aneurysm/AVR-bovine.
DVT ppx-Heparin(CONTINUE HEPARIN INFUSION FOR NOW -as per cards)
As per PT/OT>Acute REHAB given medical complexity and physical limitations
Full code
Subjective Dataa
Subjective Data
Date of Service:
Date of Service: August 28, 2024
Chief Complaint: Supervisor Public Message Service Follow Up and Pulmonary Follow Up
Subjective:
Patient is feeling very depressed, communicated that he plans to go home since he feels that he is not going to be better and although is going to be depressing for his family, he feels like giving up. He also stated that he has been feeling
burning pain in his left thigh, that is chronic but becomes more pronounced when he is physically inactive. Since admission he has not been able to move around much though the pain has been exacerbating.
Review of Systems
General: Other (Reviewed and negative)
Objective Data
Data Reviewed
Vital Signs / I&O / Oxygen:
Vital Signs
Temp Pulse Resp BP Pulse Ox
97.7 F 92 10 104/62 96
08/28/24 06:57 08/28/24 08:24 08/28/24 06:00 08/28/24 08:24 08/28/24 06:00
Intake and Output
08/27/24 08/28/24 08/29/24
06:59 06:59 06:59
Intake Total 2154.4 / 2194.1 2390.8 / 2390.8
Output Total 1620 / 1695 1240 / 1240
Balance 534.4 / 499.1 1150.8 / 1150.8
SaO2 96
Nasal Cannula flow liters per 2
minute
Physical Exam
General: Comfortable and Other (Morbidly obese, breathing on room air, teary and depressed)
HEENT: Normocephalic, Anicteric and Other (Breathing on room air)
Cardiovascular: S1-S2, Regular Rhythm, Peripheral Edema (+2 lower extremity pitting edema bilaterally) and Other (Tachycardia)
Respiratory: Rhonchi and Non-Labored Respirations
GI: Soft, Distended (Abdominal obesity), Non Tender and Normal Bowel Sounds
Neurology: Awake, Oriented and Depressed
Skin: Warm, Dry and Good Color
Labs/Micro/Reports
Lab Data
08/28/24 03:39
08/28/24 03:39
Laboratory Results
08/28/24
03:39
APTT 88.1 H
--- NOTE | 2024-08-28 10:19 | W.PN.CARDCBS ---
Today's Communication / Plan
-
Continue dobutamine, heparin, thiazide
Await decision regarding whether or not patient is candidate for valve in valve HERVE.
Impression / Plan
-
PCP: Dr. Chintan Gonzalez
Cardiology: Dr. Gabriel
Impression
H/O Obesity, HTN, HLD, T2DM, Afib on eliquis, Hx of LBBB, hx of BioAVR and 1 vessel CABG, JAMES not compliance on CPAP, s/p ICD presents to dental laboratory manager for elective RHC. . He was previously on Lasix, later trialed on Bumex (developed rash) and now is on
Torsemide.
RHC on 08/21/24 finds markedly elevated filling pressures with pulmonary capillary wedge pressure of 35 and severely depressed cardiac index of 1 with cardiac output of 2.34.
RHC on 08/22/[address] SG catheter and demonstrated elevated filling pressures with pulmonary capillary wedge pressure of 27, elevated pulmonary pressures of 65/28, cardiogenic shock with cardiac index of 1.75
Acute on chronic HFrEF with cardiogenic shock
JAI
Cardiomyopathy, mixed without improved ejection fraction despite optimal medical therapy
s/p [employer] biventricular ICD 07/07/2024
LBBB
CAD
s/p bio AVR 2009
Paroxysmal atrial fibrillation
s/p cv 07/23/2023 Chronic AC w/ Eliquis
h/o NSVT
h/o COVID September 2021
HTN
HLD
DM2
JAMES not using CPAP
h/o cough syncope
Radiculopathy
Depression
Ocular migraines
Renal calculi
Arthritis
Lexiscan sestamibi stress test 07/13/2023: Moderate sized medium in severity fixed basal to distal inferior, basal to mid inferoseptal, small mid anterior perfusion defect with no evidence of ischemia. Ejection fraction 21% with severe global
hypokinesis
Cardiac catheterization 03/28/2024: LM: MENDOZA. LAD: Moderate to severe diffuse atherosclerotic plaque. D2 has 30% stenosis. Left circumflex: Mid 60 to 70% stenosis. RCA: LI.
HEMODYNAMICS : (mmHg) RA (m) : 22; RV (s/d,m) : 72/14, 24; PA (s/d, m) : 72/34, 50; PCWP (m) : 34, V waves to 53 mmHg; PA saturation: 62.5% on room air; AO saturation: 93.6% on room air;
Cardiac Output : 5.58 L/min; Cardiac Index : 2.23 L/min/m-2; Systemic vascular resistance: 889 dsc^(-5); Pulmonary vascular resistance: 2.87 willams unit; AO (s/d) : 102/61; LV (s/d) : 131/21; LVEDP : 30
Estimated invasive transaortic gradient of 27 mmHg, aortic valve area 1.3 cm�
Significantly elevated right and left-sided filling pressures with severe pulmonary hypertension and normal cardiac output. Borderline low systemic vascular resistance.
RHC 08/21/24: RA 30, PA 63/38, PCWP 35-42, CO/CI 2.3/0.96, SVR 1880
RHC 08/23/24: RA 15, PA 65/28, PCWP 27, CO/CI 4.47/1.75, PA sat 65.6%, SVR 1432, PVR 3.81
Echo 01/2022: Ejection fraction 40%, global hypokinesis, status post AVR with mean gradient of 10 mmHg
Echo 06/28/2023: Dilated right ventricle with ejection fraction of 20 to 25%, status post bioprosthetic AVR with mean gradient of 15 mmHg, dilated right heart with PA systolic of 45 mmHg
Echo 08/03/2023: Ejection fraction 25 to 30%, hypokinetic septum, apex, inferior, anterior and distal lateral pelletier, mild concentric LVH, moderate MR, status post bioprosthetic AVR with mean gradient of 13 mm hG
Echo 02/16/2024: EF 25%. Global hypokinesis with basal inferior and basal inferolateral akinesis. Stage III diastolic dysfunction. Moderate to severe MR. Severely dilated left atrium. #23 bovine aortic valve with peak/mean gradient 46/29 mmHg.
Mild AI. Mild TR. PAP 35 mmHg
Echo 07/14/2024: EF 25-30% with global hypo, enlarged RV, ICD in place well seated #23 bovine AVR with peak/mean grad of 27/19 mmHg respectively, trace pericardial effusion.
Echo 08/21/24: EF 15-20%, AVR with mean gr 30, PA 30
Plan:
He remains in incipient cardiogenic shock with severe LV dysfunction and severe bioprosthetic aortic stenosis.
He is on dobutamine, intravenous thiazide, and furosemide drip. Creatinine is 2.
At this point, he is considering hospice but is willing to speak with interventional cardiology to see if HERVE offers realistic hope of improvement.
Interventional cardiology to assess.
For now, continue oral amiodarone, IV furosemide drip, thiazide diuretic, dobutamine. Patient is still on hydralazine and isosorbide despite aortic stenosis. Still on heparin.
Progress Note - Chief Growth Officer
Subjective
Date of Service: August 28, 2024: 74-year-old man with history of CABG and bioprosthetic aortic valve, ICD, diabetes, paroxysmal atrial fibrillation now with heart failure and cardiogenic shock, pulmonary capillary wedge pressure 35 and cardiac
index of 1.75 as of right heart cath August 22, currently on dobutamine. He is indicated he does not want dialysis if needed, hospice has been mentioned he is short of breath he has minimal movements
PMH/PSH/FH/SH: Reviewed
Current medications: Dobutamine, amiodarone 200 mg a day, aspirin 81 mg a day, Xalatan, Crestor, sertraline 50 mg a day, IV heparin, insulin, hydralazine 37.5 3 times daily, isosorbide mononitrate 30 mg a day, IV chlorothiazide, furosemide drip
104/62, 94, 16, afebrile, weight is 129.4 kg, if accurate up 4.7 kg, diminished breath sounds in bases, systolic murmur, JVD elevated some edema
Hemoglobin 12.9, platelets 78, VBG 7.5 / 7.1, sodium 129, creatinine 2, BUN 66
Objective
Labs:
08/28/24 03:39
08/28/24 03:39
Labs
Hgb 12.9 g/dL (13.0-18.0) L 08/28/24 03:39
Hct 39.4 % (39.0-52.0) 08/28/24 03:39
Plt Count 78 10^3/uL (130-400) L 08/28/24 03:39
APTT 88.1 Sec (23.4-35.0) H 08/28/24 03:39
Sodium 129 mmol/L (135-145) L 08/28/24 03:39
Potassium 3.9 mmol/L (3.5-5.1) 08/28/24 03:39
BUN 66 mg/dl (9-20) H 08/28/24 03:39
Creatinine 2.0 mg/dL (0.7-1.3) H 08/28/24 03:39
Glucose 150 mg/dl (70-99) H 08/28/24 03:39
Vital Signs and I&O:
Vital Signs
Temp Pulse Resp BP Pulse Ox
36.5 C 94 16 104/62 94
08/28/24 06:57 08/28/24 09:00 08/28/24 09:00 08/28/24 08:24 08/28/24 09:00
Vital Signs
Temp Pulse Resp BP Pulse Ox
36.5 C 94 16 104/62 94
08/28/24 06:57 08/28/24 09:00 08/28/24 09:00 08/28/24 08:24 08/28/24 09:00
Intake & Output
08/26/24 08/27/24 08/28/24 08/29/24
07:59 07:59 07:59 07:59
Intake Total 1698.8 / 2169.3 2163.6 / 2703.3 2392.8 / 2674.5 324.4 / 324.4
Output Total 1585 / 1635 1645 / 1720 1210 / 1255 80 / 80
Balance 113.8 / 534.3 518.6 / 983.3 1182.8 / 1419.5 244.4 / 244.4
Physical Exam
Physical Exam
See above
[2024-08-28 11:53] LABS: Glucose - Point of Care 172 mg/dl (70-99)
--- NOTE | 2024-08-28 11:57 | CM ---
CM followoing re: discharge planning.
Reviewed pt's chart, met with t.
Pt and OT evaluations noted - acute rehab recommended. Pt is aware, [facility] requested.
A referral to [facility] made.
D/C plan:[facility] when medically stable.
CM will follow with discharge plan updates as hospitalization progresses
--- NOTE | 2024-08-28 12:25 | PTCARENOTE ---
No major changes in physical assessment. Pt remains on heparin, lasix, and dobutamine gtts...see interventions. Poor appetite. Refused both breakfast and lunch. Call alvarez within reach. Safe environment confirmed.
--- NOTE | 2024-08-28 13:15 | PTCARENOTE ---
OOB to chair w/ assist x 2. Right base fine crackles noted. IS done...1000mls. Coughing and deep breathing encouraged.
--- NOTE | 2024-08-28 14:30 | CON.CAR ---
Consultation
Consultation Request
Date/Time Consultation Requested: August 28, 2024
Requesting Provider: Dr. Nirav West
Performing Provider: Dr. Nirav Obando
Reason for Consultation: Interventional Cardiology Assessment for Possible TAVR
Medical History
-
Chief Complaint: Shortness of breath
History of Present Illness:
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
on June 19, 2010 at [facility] with placement of a 27 mm (serial [id number]) (NOTE PATIENT HAS LAMINATED CARD FROM [facility] THAT STATES 23 MM VALVE BUT OPERATIVE REPORT STATES IT IS A 27 MM VALVE). He has
longstanding LV dysfunction with recent worsening in AV gradients and several recent admissions for shortness of breath and abdominal bloating
He has a history of paroxysmal atrial fibrillation and is chronically maintained on apixaban as well as hypertension, and hyperlipidemia. He has longstanding LV dysfunction. EF immediately postoperative in 2009 was estimated near 45%. The LVEF
has waxed and waned between 15-20% more recently and as high as 40% 2 years ago. However, the LVEF was estimated 20-25% in June 2023
An interventional consult has been requested as patient continues to note abdominal bloating, weight gain while receiving IV furosemide infusion
Cardiac studies reviewed:
-08/22/2024: RHC: RA: 15, RV: 62/5, PCWP: 27, CO/CI: 4.5/1.75
-08/21/2024: RA: 30, PA: 63/38, 48, PCWP: 35 with V waves to 42
-08/21/2024: Echo: LV: EF 15-20% with global HK. RV: Decreased EF, LA: Moderately dilated, RA: Mildly dilated, MV: No MR, AV: Note says 23 mm bovine valve with P/M gradient 45/30 mmHg, however, this is probably a 27 mm bioprosthetic valve. TV:
Trace TR with estimated PAP 25-30 mmHg
-07/14/2024: Echo: LV: EF 25-30%, RV: Dilated with reduced EF, LA: Dilated, RA: Dilated, MV: Normal, AV: 23 mm bovine valve with P/M gradient 27/19, TV: Mild TR with PAP 25-30 mmHg
-03/28/2024: RT/LT heart cath: RA: 22, PA: 72/34, 50, PCWP: 30 with V wave-53 mmHg, CO/CI: 5.6/2.2, AV gradient 27 mmHg with MAURIZIO 1.32 cm�, LM: Normal, LAD: Moderate-severe diffuse atherosclerosis in mid to distal LAD, LCx: Medium/large vessel with
eccentric 60-70% mid stenosis, RCA: Luminal irregularities
-02/16/2024: Echo: EF 25% with global HK. Basal inferior and inferolateral HK. RV: Decreased systolic function. LA: Severely dilated, RA: Dilated, MV: Moderate-severe MR, AV: 23 mm bovine valve with P/M gradient 45/29 mmHg. TV: Mild TR with PAP
35 mmHg
-06/28/2023: Echo: LV: EF 20-25%. RV: Dilated, LA: Dilated, RA: Dilated, MV: Mild MR, AV: P/M gradient 25/15 with trace paravalvular AI. TV: Mild TR
-08/11/2021: Echo: LV: EF 40-45%, moderate LVH. RV: Normal, LA: Mildly dilated, LA: Normal, MV: Trace MR, AV: Bioprosthetic valve with P/M gradient 21/12 mmHg. No AI
-06/19/2010: Dr. Viet Dalal at [facility]: Bicuspid aortic valve with severe AI and dilated aortic root measuring 5.2 cm. Ascending aortic aneurysm and tissue AVR with reimplantation of coronary
arteries. 27 mm bovine pericardial composite graft
.
CT scan
-07/31/2024: Liver contour is very nodular suggestive of possible cirrhosis with moderate ascites and RUQ and LUQ near spleen which was new
Social History
Tobacco: Former Smoker
Alcohol: Former
Personal:
Living: With Family
Family History
Family History: Reviewed & Not Pertinent
Allergies / Home Medications
Allergy/AdvReac Type Severity Reaction Status Date / Time
bumetanide [From Bumex] Allergy Rash Verified 08/21/24 23:20
�Medication �Instructions �Recorded �Confirmed �Type
metoprolol succinate 25 mg 25 mg PO DAILY Blood pressure 10/01/21 08/21/24 History
tablet,extended release 24 hr
amiodarone 200 mg tablet 200 mg PO DAILY Arrhythmia 07/23/23 08/21/24 History
apixaban 5 mg tablet (Eliquis) 5 mg PO BID blood thinner 07/23/23 08/21/24 History
aspirin 81 mg tablet,delayed 81 mg PO DAILY blood thinner 07/23/23 08/21/24 History
release
empagliflozin 10 mg tablet 10 mg PO DAILY Diabetes 07/23/23 08/21/24 History
(Jardiance)
spironolactone 25 mg tablet 12.5 mg (1/2 x 25 mg) PO DAILY 30 03/28/24 08/21/24 Rx
days #15 tabs
sertraline 50 mg tablet (Zoloft) 50 mg PO HS Depression 06/29/24 08/21/24 History
latanoprost 0.005 % eye drops 1 drp RIGHT EYE HS Eye Condition 07/13/24 08/21/24 History
polyethylene glycol 3350 17 gram 17 g PO DAILYPRN PRN constipation 07/29/24 08/21/24 History
oral powder packet (Miralax)
prednisone 20 mg tablet 40 mg PO DAILY ALLERGIC REACTION 08/21/24 08/21/24 History
rosuvastatin 10 mg tablet 10 mg PO 1800 High Cholesterol 08/21/24 08/21/24 History
Review of systems
-Shortness of breath and abdominal bloating. Patient states that he has not been compliant with his CPAP because 'I cannot tolerate it'. He experiences shortness of breath. He states that he tries to watch his diet at home but may not be as good
with sodium restrictions as he needs to be. He has noticed significant decline in respiratory status including significant abdominal bloating. He denies any melena or bright red blood per rectum. No active chest discomfort. He has noticed recent
onset of lower extremity edema.
Physical exam
GEN: AAO x 3. Sitting in a chair. Speaking in full sentences. Mild dyspnea but no acute distress
HEENT: NC/AT, sclera are anicteric, hearing and nares are normal.
LUNGS: Crackles at the bases and scattered. No wheezing
CV: Regular paced rhythm. Heart sounds are distant. A soft 1/6 crescendo decrescendo murmur is noted at the upper sternal border
ABD : Soft, NT, bowel sounds present
EXT: Trace edema.
NEURO: No focal neurologic deficits
Physical Exam
Vital Signs
Temp Pulse Resp BP Pulse Ox
97.7 F 94 16 104/62 96
08/28/24 12:00 08/28/24 09:00 08/28/24 09:00 08/28/24 08:24 08/28/24 12:00
Lab Results
08/28/24 03:39
08/28/24 03:39
Mov-G-Vtsjaykvusi Pept [id number] pg/ml 08/21/24 17:10
Impression / Plan
-
PCP: Dr. Chintan Gonzalez
Cardiology: Dr. Gabriel
Impression:
- Bioprosthetic AV aortic stenosis:
His valve was implanted in 06/2010.
Gradients may be consistent with low output low gradient . However murmur is not too bad
Will discuss with TAVR team
Will ask radiology to look at images and see if we can determine coronary heights off prior CT chest
- Possible Cirrhosis:
Follows with Dr. Allen but I do not think he is regularly seen in the office
Last CT scan c/w cirrhosis with new ascites. Prior heavy alcohol use/abuse
We should probably get GI re-involved to assess
- Sleep apnea and COPD:
Mild obstruction and moderate restrictive lung disease
Probablly should have full PFT's with DLCO given amiodarone therapy and ongoing dyspnea
- Fall in platelets from > 200 K and now 78 k.
Will check HIT panel
- I have called [facility] rep to determine exact valve. Data from family included a laminated card suggestive of a #23 mm AVR and operative report states #27 mm Bovine valve (Suspect Magna)
- Renal insufficiency:
Cr. 2.0
Will need contrast
Data Reviewed
-
Total Time Spent with Patient (in minutes): 150 min
[2024-08-28 15:30] VITALS: BMI 38.6
--- NOTE | 2024-08-28 15:51 | CON.GI ---
Consultation
-
Date/Time Consultation Requested: 08/28/24 3:18pm
Date/Time Consultation Performed: 08/28/24 3:52pm
Requesting Provider: Richy Obrien
Performing Provider: Franky Burr
Reason for Consultation: Liver disease r/o cirrhosis
Medical History
Chief Complaint / HPI
Chief Complaint: liver disease r/o cirrhosis
History of Present Illness:
Patient is a 74-year-old male presenting with lower extremity edema and abdominal distention and recent admissions to the hospital for workup. He had AVR in the past and is currently undergoing evaluation for possible TAVR. During his evaluation
his chest CT showed some subtle nodularity suggestive of possible cirrhosis. Also he has ascites which has not been tapped to this point. He reports a heavy history of alcohol drinking half a gallon of vodka every 3 to 4 days. He did this for 15
years and quit a year and a half ago. He has continued abdominal bloating despite diuresis. CT Surgery has been consulted for TAVR
Past Medical History
Past Medical History: Arrhythmias (Afib), CHF, HTN, Valvular Disease (Aortic stenosis) and Other (Sleep apnea)
Past Surgical History: Cardiac (AVR)
Social History
Tobacco: Former Smoker
Alcohol: Chronic Alcoholic (quit 1.5 years ago)
Family History
Family History: Reviewed & Not Pertinent
Allergies / Home Medications
Allergy/AdvReac Type Severity Reaction Status Date / Time
bumetanide [From Bumex] Allergy Rash Verified 08/21/24 23:20
�Medication �Instructions �Recorded
metoprolol succinate 25 mg 25 mg PO DAILY Blood pressure 10/01/21
tablet,extended release 24 hr
amiodarone 200 mg tablet 200 mg PO DAILY Arrhythmia 07/23/23
apixaban 5 mg tablet (Eliquis) 5 mg PO BID blood thinner 07/23/23
aspirin 81 mg tablet,delayed 81 mg PO DAILY blood thinner 07/23/23
release
empagliflozin 10 mg tablet 10 mg PO DAILY Diabetes 07/23/23
(Jardiance)
spironolactone 25 mg tablet 12.5 mg (1/2 x 25 mg) PO DAILY 30 03/28/24
days #15 tabs
sertraline 50 mg tablet (Zoloft) 50 mg PO HS Depression 06/29/24
latanoprost 0.005 % eye drops 1 drp RIGHT EYE HS Eye Condition 07/13/24
polyethylene glycol 3350 17 gram 17 g PO DAILYPRN PRN constipation 07/29/24
oral powder packet (Miralax)
prednisone 20 mg tablet 40 mg PO DAILY ALLERGIC REACTION 08/21/24
rosuvastatin 10 mg tablet 10 mg PO 1800 High Cholesterol 08/21/24
Review of Systems
-
All other systems: A 12 pt ROS was Negative except as stated above in HPI
Vital Signs
Temp Pulse Resp BP Pulse Ox
97.7 F 92 18 104/62 97
08/28/24 12:00 08/28/24 15:00 08/28/24 15:00 08/28/24 08:24 08/28/24 15:00
Physical Exam
Exam
General: No Apparent Distress
HEENT: Normocephalic and Atraumatic
Respiratory: Non Labored Respirations
GI: Soft, Non Tender and Distended
Musculoskeletal: Edema
Results
WBC 9.3 10^3/uL (4.8-10.8) 08/28/24 03:39
Hgb 12.9 g/dL (13.0-18.0) L 08/28/24 03:39
Hct 39.4 % (39.0-52.0) 08/28/24 03:39
MCV 87.8 fL (80.0-94.0) 08/28/24 03:39
Plt Count 78 10^3/uL (130-400) L 08/28/24 03:39
Absolute Neuts (auto) 6.3 10^3/uL (1.4-6.5) 08/26/24 03:38
APTT 88.1 Sec (23.4-35.0) H 08/28/24 03:39
Sodium 129 mmol/L (135-145) L 08/28/24 03:39
Potassium 3.9 mmol/L (3.5-5.1) 08/28/24 03:39
Chloride 91 mmol/L (98-107) L 08/28/24 03:39
Carbon Dioxide 25 mmol/L (22-30) 08/28/24 03:39
BUN 66 mg/dl (9-20) H 08/28/24 03:39
Creatinine 2.0 mg/dL (0.7-1.3) H 08/28/24 03:39
Calcium 8.4 mg/dl (8.4-10.2) 08/28/24 03:39
Total Bilirubin 1.2 mg/dl (0.2-1.3) 08/25/24 03:15
AST 56 U/L (17-59) 08/25/24 03:15
ALT 77 U/L (0-50) H 08/25/24 03:15
Alkaline Phosphatase 67 U/L (38-126) 08/25/24 03:15
Diagnostic Image Results:
Prior GI Procedures:
EGD:
Colonoscopy:
Assessment / Plan
-
Summary: 74yo male admitted with persistent weight gain, abdominal distention undergoing eval by Cardiology with hx AVR 2009 and now being considered for TAVR. During eval CT chest 07/31/24 showed subtle liver nodularity suggestive of cirrhosis,
moderate ascites, normal spleen. US doppler 08/01/24 showed mildly dilated hep v and biphasic flow c/w elevated pulm pressure/CHF and moderately damplene hepatopedal flow portal v but no PVT. Plt and albumin have been normal, but plt count has
dropped since admission, current eval for HIT. Heavy ETOH history
Impression:
s/p AVR 2009
CHF
ARF
Ascites
Heavy EtOH hx
Recommendations:
Order placed for paracentesis in IR- check fluid albumin to calculate SAAG, fluid protein to rule out CHF cause (elevated protein level)
Check INR
Check Hep B serology, iron studies, SHRUTI for other causes liver disease. Hep C negative 08/01/[address] Obando. He will be getting CT CAP with IV contrast as part of his TAVR work up, so I will hold off on contrast imaging study and await results when CT CAP ordered
His normal plt, albumin, spleen argues against cirrhosis, but his CT chest suggested nodularity c/w cirrhosis
-
-
Thank you for consultation and allowing me to participate in the patient's care. Please call the applications support specialist GI physician during the after hours with any questions or concerns.
[2024-08-28] MEDS: DIURIL 0.5 GRAM VIAL 0.5 GRAMS IV (16:00)
--- NOTE | 2024-08-28 16:00 | PTCARENOTE ---
Pt seen by MD's for possible TAVR. IR consulted for tentative paracentesis tomorrow per GI. Bedside PFT's ordered. Pt remains on R/A....sats 96%. No major changes in physical assessment. OOB x 2hrs today. Assist x 2. Call alvarez within reach.
Will continue to monitor.
--- NOTE | 2024-08-28 16:15 | PTCARENOTE ---
Right base fine crackles noted....encouraged pt to cough and deep breath and use IS.
[2024-08-28] MEDS: HEPARIN 25000 UNITS/250 ML IV (16:25)
[2024-08-28 16:31] LABS: Glucose - Point of Care 175 mg/dl (70-99)
[2024-08-28] MEDS: CRESTOR 10 MG PO (17:40)
[2024-08-28 20:00] VITALS: BP 110/73
--- NOTE | 2024-08-28 20:00 | PTCARENOTE ---
Rec'd pt resting in bed, drowsy, easily arousabel, 'very tired tonight from all activity today', oriented, denies pain, Vpaced, R rad chino w/ good wave form, flushes well, accurate to cuff within 10mm, dobutrex at 7.5 keely, hep gtt at 1200 units,
lasix gtt at 30mg/hr, weak distal pulses, +2 LE edema, RA, lungs decr in bases, fine R base crackles, refuses to wear bipap hs, sat 98, + HUSSEIN, hyper bowel sounds, abd obese, soft, refused dinner, no n/v, ross draining aylin urine
[2024-08-28 20:01] VITALS: BP 110/73
[2024-08-28] MEDS: ATROVENT NEBULES 0.5 MG INH (20:32)
[2024-08-28] MEDS: VENTOLIN NEBULES 2.5 MG INH (20:32)
[2024-08-28] MEDS: SYMBICORT 160/4.5 MCG INHALER 2 PUFF INH (20:32)
[2024-08-28] MEDS: XOPENEX 1.25 MG INHALANT SOLUTION INH (20:48)
[2024-08-28] MEDS: LANTUS 0.15 UNITS SC (21:30)
[2024-08-28] MEDS: ZOLOFT 50 MG PO (21:31)
[2024-08-28] MEDS: XALATAN OPHTHALMIC SOLUTION 1 DROP RIGHT EYE (21:31)
[2024-08-28 21:39] LABS: Glucose - Point of Care 168 mg/dl (70-99)
[2024-08-29] VITALS (9 sets, daily range): BP systolic 78–115; BP diastolic 48–71; PULSE 96; O2SAT 100; BMI 38.1
--- NOTE | 2024-08-29 | PTCARENOTE ---
sys reviewed, changes noted, inc loose brown stool, CHG bath done, linens changed
[2024-08-29] MEDS: DOBUTREX 500 MG 250 IV ×3 (02:50→21:15)
[2024-08-29 03:24] LABS: Hematocrit 38.8 % (39.0-52.0); Hemoglobin 13.2 g/dL (13.0-18.0); Mean Corpuscular Hgb 29.5 pg (27.0-31.0); Mean Corpuscular Volume 86.8 fL (80.0-94.0); Mean Platelet Volume 10.1 fL (7.4-10.4); Platelet Count 91 10^3/uL (130-400); Red Blood Cell Count 4.47 10^6/uL (4.70-6.10); Red Cell Dist. Width 15.8 % (11.5-14.5); White Blood Cell Count 9.9 10^3/uL (4.8-10.8)
[2024-08-29 03:28] LABS: APTT 92.7 Sec (23.4-35.0)
[2024-08-29] MEDS: ZOFRAN 4 MG IV (03:41)
[2024-08-29 03:43] LABS: Blood Urea Nitrogen 66 mg/dl (9-20); Calcium 8.6 mg/dl (8.4-10.2); Carbon Dioxide 27 mmol/L (22-30); Chloride 90 mmol/L (98-107); Estimated Creatinine Clearance 37 ml/min; Glucose 158 mg/dl (70-99); Iron 61 ug/dl (49-181); Sodium 130 mmol/L (135-145); eGFR 27.28
--- NOTE | 2024-08-29 03:49 | PTCARENOTE ---
sys reviewed, vomited sm amt bile, zofran 4mg iv given w/ relief
[2024-08-29 03:52] LABS: Percent Saturation 16 % (20-50); Total Iron Binding Capacity 373 ug/dl (261-462)
[2024-08-29 04:16] LABS: Hepatitis B Surface Antigen Negative (Negative)
[2024-08-29 04:21] LABS: Ferritin 51.8 ng/ml (17.9-464.0)
[2024-08-29 04:34] LABS: Hepatitis B Core Ab, Total Negative (Negative); Hepatitis B Surface Antibody Negative
[2024-08-29] MEDS: XOPENEX 1.25 MG INHALANT SOLUTION INH ×3 (07:38→20:35)
[2024-08-29] MEDS: ATROVENT NEBULES 0.5 MG INH ×3 (07:38→20:35)
[2024-08-29] MEDS: SYMBICORT 160/4.5 MCG INHALER 2 PUFF INH ×2 (07:38→20:35)
--- NOTE | 2024-08-29 08:26 | W.PN.INTV ---
Today's Communication / Plan
Recommendations
Continue lasix gtt
Trend UOP and sCr
If refractory to diuretics can consider hemodialysis, which the pt does not want
Strict I/O
Aspiration precautions
Up OOB as tolerated
Follow-up paracentesis cultures from today
PT/OT
Keep K>4, Mg>2
Defer TAVR to cardiology
If pt not a candidate for a TAVR, he may want to go home on hospice as he 'can not do this anymore.'
Supervisor [employer] services will continue to follow along while he remains in ICU
Assessment
-
74-year-old obese occasional cigar smoking male with a history of hypertension, hyperlipidemia, CAD/CABG, diabetes, atrial fibrillation and JAMES/CPAP intolerant recently had AICD placed with subsequent history of difficult to control CHF underwent
elective right heart catheterization noted to have severely elevated filling pressures with low cardiac index necessitating ICU/pulmonary artery catheter/inotropes-clinical research associate consulted for CHF/critical care management 08/22/2024.
CHF-acute on top of chronic with reduced EF
Cardiomyopathy status post recent biventricular ICD 07/07/2024
JAI with suspected cardiorenal syndrome
Hyperglycemia
Hypocalcemia � now resolved
Elevated LFTs
Right sided pleural effusion likely due to cirrhosis with a hepatohydrothorax
Obesity
Conditions present prior to admission:
Hypertension.
Hyperlipidemia.
Diabetes.
CAD/CABG/AVR.
Cardiomyopathy-EF 20%
ICD June 2025.
JAMES/CPAP intolerant.
Atrial fibrillation on Eliquis.
Abnormal CT abdomen-suggestive of cirrhosis 07/2024
Varicocele repair. Lumbar discectomy 2021. Repair ascending aortic aneurysm/AVR-bovine.
Plan
Patient critically ill and admitted to ICU to obtain pulmonary artery catheter, inotropes, diuresis-extensive cardiac and pulmonary workup summarized below
- He remains on dobutamine gtt and lasix gtt (lasix drip started 08/27/2024)
- [place]-Pradeep has been removed (08/26/2024)
Supplemental oxygen as needed to keep SpO2 >90%
Incentive spirometry q1hr while awake
CPAP or BiPAP at night as tolerated-in the past has been intolerant-willing to use --> did not tolerate BiPAP overnight 08/25 - 08/26/2024, and refused again last night and the night before --> I will DC
- Blood gas on AM of 08/28 showed metabolic alkalosis with appropriate respiratory compensation
Aspiration precautions
Nebulizers if needed-currently not bronchospastic
s/p prednisone taper (completed on 08/24/2024) - was not for pulmonary-had rash possibly Bumex related as an outpatient
Cardiology following-correspondence reviewed
Right heart catheterization results reviewed-significantly elevated filling pressures with low cardiac index-RHC 08/21/24: RA 30, PA 63/38, PCWP 35-42, CO/CI 2.3/0.96, SVR 1880, PVR: 6.85 FARRAR
Pulmonary artery catheter placement-08/22/2024-improvement in cardiac index, PCWP, RA-pressure, SVR + PVR
PAC was removed on 08/26/2024 after it malpositioned ([place]-Pradeep was accidentally withdrawn somehow by the patient)
Continue diuresis as tolerated-intensified per nephrology - now on lasix gtt as of 08/27/2024
Inotropes continue-currently on dobutamine s/p milrinone
Monitor renal function, electrolytes, intake/output, lower extremity edema and weight
Replace electrolytes as needed
PO amiodarone continues as well
Heparin drip continues-Eliquis on hold--eventual change back
Eventually start GDMT (hydralazine on for afterload reduction)
Monitor renal function
Replace electrolytes
Acute cardiorenal state
Nephrology following-correspondence reviewed
Monitor ascites-not enough fluid for diagnostic or therapeutic paracentesis per abdominal ultrasound on 08/22/2024 --> he went down for paracentesis today and 3.2 L of clear, dark aylin-colored exudative fluid was removed (SAAG: >1.1, protein >2.5
indicating cardiac ascites)
Abdominal ultrasound summarized below
Trend LFTs
Liver appeared normal on recent abdominal ultrasound on 08/01/2024, hence doubtful he has cirrhosis despite CT chest on 07/31/2024 showing nodular external surface of liver concerning for cirrhosis
Monitor MSAS-no signs of withdrawal
Alcohol withdrawal treatment protocol if indicated
Ativan as needed - not currently indicated
Monitor blood sugar with goal 140-180
Insulin supplementation as needed with basal�bolus SQ insulin dose
Last saw Dr. Mars/Gabrielle Macario CNP on 11/29/[address] Mars reviewed with as well as daughter at the bedside 08/22/2024, 08/23/2024, 08/24/2024, 08/25/[address] Obrien answered all the family's questions at bedside in layman's terms to their satisfaction
Critical care statement: A total of 42 minutes of critical care time was provided for this patient today. This includes management of unstable vital signs, evaluation of the patient at bedside, reviewing the patient's pertinent medical records
including radiographs, pressor and inotrope management, diuresis management, microbiology, laboratory evaluations, and discussion with primary team, consultants, pharmacy, nutrition, physical therapy, case management, charge nurse, critical care
nursing, and respiratory therapy.
Diagnostic data:
CXR 10/01/21: cardiomegaly with slightly prominent pulmonary vascularity which could represent mild CHF vs atypical acute pulmonary edema. possible left basilar patchy opacity such as pna������
��
Chest x-ray 12/10/21-NAD
Chest x-ray 08/22/2024-no acute disease in the chest, cardiomegaly, waterbed configuration
CT Chest 09/29/21: no PE. small bilateral pleural effusions. mild peripheral ground glass densities in lower lung zones b/l suggesting mild residual pna.��
CT chest 07/11/23-no pulmonary embolism, minimal right pleural effusion, minimal pleural thickening left hemithorrax, no adenopathy or nodules.
CT chest 07/31/2024-small right pleural effusion, moderate ascites, liver contour appears to be subtly nodular suggestive of cirrhosis, basilar atelectasis
Abdominal ultrasound 08/22/2024 - mild abdominal pelvic ascites, slightly progressed. Moderate right pleural effusion.
US BLE 10/01/21: negative for DVT������������������
ECHO 08/11/21: ischemic heart disease with mildly reduced systolic function. LV EF 40-45%. moderate LVH. RV base mildly enlarged. Tricuspid and mitral regurgitation. s/p bioprosthetic aortic valve prosthesis.�������
Nuclear stress test 06/12/21-EF 25%, moderate risk study�������
Echocardiogram 06/28/23-EF 20-25%, stage II diastolic dysfunction, bioprosthetic aortic valve, PA systolic 45, rhythm atrial fibrillation�������
Stress test 07/13/23-revealed a moderate in size, medium severity fixed basal to distal inferior and inferoseptal perfusion defect, EF 21%, overall high risk study.�������
Echo 02/16/2024: EF 25%. Global hypokinesis with basal inferior and basal inferolateral akinesis. Stage III diastolic dysfunction. Moderate to severe MR. Severely dilated left atrium. #23 bovine aortic valve with peak/mean gradient 46/29 mmHg.
Mild AI. Mild TR. PAP 35 mmHg
Echo 07/14/2024: EF 25-30% with global hypo, enlarged RV, ICD in place well seated #23 bovine AVR with peak/mean grad of 27/19 mmHg respectively, trace pericardial effusion.
Echo 08/21/24: EF 15-20%, AVR with mean gr 30, PA 30
Cardioversion 07/23/23-successful cardioversion from atrial fibrillation to sinus rhythm.
Cardiac catheterization 03/28/2024: LM: LI. LAD: Moderate to severe diffuse atherosclerotic plaque. D2 has 30% stenosis. Left circumflex: Mid 60 to 70% stenosis. RCA: LI.
HEMODYNAMICS : (mmHg) RA (m) : 22; RV (s/d,m) : 72/14, 24; PA (s/d, m) : 72/34, 50; PCWP (m) : 34, V waves to 53 mmHg; PA saturation: 62.5% on room air; AO saturation: 93.6% on room air;
Cardiac Output : 5.58 L/min; Cardiac Index : 2.23 L/min/m-2; Systemic vascular resistance: 889 dsc^(-5); Pulmonary vascular resistance: 2.87 willams unit; AO (s/d) : 102/61; LV (s/d) : 131/21; LVEDP : 30
Estimated invasive transaortic gradient of 27 mmHg, aortic valve area 1.3 cm�
Significantly elevated right and left-sided filling pressures with severe pulmonary hypertension and normal cardiac output. Borderline low systemic vascular resistance.
PFT 12/19/21-FEV1 2.55-72%, FVC 3.77 L-70%, no significant response, TLC 80%, 90%, DLCO 64%. Mild obstruction and moderate reduction in diffusing capacity.�������
Spirometry 07/29/23-FEV1 1.18-34%, FVC 1.5-39%, no significant BD response. Severe obstruction.
Subjective Dataa
Subjective Data
Date of Service:
Date of Service: August 29, 2024
Chief Complaint: Supervisor St[employer]ting Follow Up and Pulmonary Follow Up
Subjective:
Patient seen and evaluated this morning. Going after paracentesis morning with IR - drained 3.2L this AM. Patient seen and evaluated today at bedside. Afebrile overnight. Multiple family members at bedside and all questions were answered.
Remains on Lasix drip at 20 mg/hour, dobutamine 7.5mcg/kg/min and heparin drip. Heart rate 94, BP 100/56 and saturating 95% on room air. He was able to sit to the chair today and he says his breathing is the same as yesterday and he is not short
of breath. He continues to feel very weak overall and denies abdominal pain, nausea, fevers or chills.
Review of Systems
General: Other (Negative unless mentioned above)
Objective Data
Data Reviewed
Vital Signs / I&O / Oxygen:
Vital Signs
Temp Pulse Resp BP Pulse Ox
98.2 F 96 16 109/63 95
08/29/24 08:50 08/29/24 08:50 08/29/24 08:50 08/29/24 08:50 08/29/24 08:50
Intake and Output
08/28/24 08/29/24 08/30/24
06:59 06:59 06:59
Intake Total 2390.8 / 2432.5 1792.8 / 1792.8
Output Total 1240 / 1285 1105 / 1105
Balance 1150.8 / 1147.5 687.8 / 687.8
SaO2 95
Nasal Cannula flow liters per 2
minute
Physical Exam
General: Respiratory Distress (negative), Comfortable, Chills (negative), Sweats (negative) and Other (Morbidly obese)
HEENT: Normocephalic, Anicteric and Other (thick neck)
Cardiovascular: S1-S2, Regular Rhythm, Murmur (CM heard across precordium), Peripheral Edema (+2 lower extremity pitting edema bilaterally) and Other (Tachycardia)
Respiratory: Wheeze (negative), Crackles (Bibasilar), Rhonchi (negative), Non-Labored Respirations and Stridor (negative)
GI: Soft, Distended (Abdominal obesity), Non Tender and Normal Bowel Sounds
Neurology: AO x 3, Tremors (negative) and Depressed
Skin: Warm, Dry, Cyanosis (negative) and Jaundice (negative)
Labs/Micro/Reports
Lab Data
08/29/24 02:57
08/29/24 02:57
Laboratory Results
08/29/24
02:57
APTT 92.7 H
--- NOTE | 2024-08-29 09:09 | W.PN.CARDCBS ---
Today's Communication / Plan
-
Continue supportive care
Goal is eventual HERVE, though renal and hepatic function are major obstacles
Impression / Plan
-
PCP: Dr. Chintan Gonzalez
Cardiology: Dr. Gabriel
Impression
Acute on chronic HFrEF with cardiogenic shock
JAI
Cardiomyopathy, mixed without improved ejection fraction despite optimal medical therapy
s/p [employer] biventricular ICD 07/07/2024
LBBB
CAD
s/p bio AVR 2009Paroxysmal atrial fibrillation
s/p cv 07/23/2023 Chronic AC w/ Eliquish/o NSVT
h/o COVID September 2021
HTN
HLD
DM2
JAMES not using CPAP
h/o cough syncope
Radiculopathy
Depression
Ocular migraines
Renal calculi
Arthritis
Lexiscan sestamibi stress test 07/13/2023: Moderate sized medium in severity fixed basal to distal inferior, basal to mid inferoseptal, small mid anterior perfusion defect with no evidence of ischemia. Ejection fraction 21% with severe global
hypokinesis
Cardiac catheterization 03/28/2024: LM: LI. LAD: Moderate to severe diffuse atherosclerotic plaque. D2 has 30% stenosis. Left circumflex: Mid 60 to 70% stenosis. RCA: LI.
HEMODYNAMICS : (mmHg) RA (m) : 22; RV (s/d,m) : 72/14, 24; PA (s/d, m) : 72/34, 50; PCWP (m) : 34, V waves to 53 mmHg; PA saturation: 62.5% on room air; AO saturation: 93.6% on room air;
Cardiac Output : 5.58 L/min; Cardiac Index : 2.23 L/min/m-2; Systemic vascular resistance: 889 dsc^(-5); Pulmonary vascular resistance: 2.87 willams unit; AO (s/d) : 102/61; LV (s/d) : 131/21; LVEDP : 30
Estimated invasive transaortic gradient of 27 mmHg, aortic valve area 1.3 cm�
Significantly elevated right and left-sided filling pressures with severe pulmonary hypertension and normal cardiac output. Borderline low systemic vascular resistance.
RHC 08/21/24: RA 30, PA 63/38, PCWP 35-42, CO/CI 2.3/0.96, SVR 1880
RHC 08/23/24: RA 15, PA 65/28, PCWP 27, CO/CI 4.47/1.75, PA sat 65.6%, SVR 1432, PVR 3.81
Echo 01/2022: Ejection fraction 40%, global hypokinesis, status post AVR with mean gradient of 10 mmHg
Echo 06/28/2023: Dilated right ventricle with ejection fraction of 20 to 25%, status post bioprosthetic AVR with mean gradient of 15 mmHg, dilated right heart with PA systolic of 45 mmHg
Echo 08/03/2023: Ejection fraction 25 to 30%, hypokinetic septum, apex, inferior, anterior and distal lateral pelletier, mild concentric LVH, moderate MR, status post bioprosthetic AVR with mean gradient of 13 mm hG
Echo 02/16/2024: EF 25%. Global hypokinesis with basal inferior and basal inferolateral akinesis. Stage III diastolic dysfunction. Moderate to severe MR. Severely dilated left atrium. #23 bovine aortic valve with peak/mean gradient 46/29 mmHg.
Mild AI. Mild TR. PAP 35 mmHg
Echo 07/14/2024: EF 25-30% with global hypo, enlarged RV, ICD in place well seated #23 bovine AVR with peak/mean grad of 27/19 mmHg respectively, trace pericardial effusion.
Echo 08/21/24: EF 15-20%, AVR with mean gr 30, PA 30
Plan:
From a volume standpoint, he is minimally improved. However his creatinine continues to rise.
Now status post paracentesis of 3.3 L, labs are pending Await ascitic fluid protein level and calculation of SAAG
Appreciate efforts of Dr. Obando. Will be pursuing assessment for TAVR, he may be a candidate.
Patient undergo paracentesis. SAAG ratio to be determined to help differentiate ascites from cirrhosis versus heart failure.
Continue dobutamine for now.
Diuretic management per nephrology. He is willing to accept dialysis, which may be a necessity in the event of to dye loads for TAVR.
His platelet count is rising. HIT panel in is pending
Status remains tenuous.
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
elective RHC. . He was previously on Lasix, later trialed on Bumex (developed rash) and now is on Torsemide.
RHC on 08/21/24 finds markedly elevated filling pressures with pulmonary capillary wedge pressure of 35 and severely depressed cardiac index of 1 with cardiac output of 2.34.
RHC on 08/22/[address] SG catheter and demonstrated elevated filling pressures with pulmonary capillary wedge pressure of 27, elevated pulmonary pressures of 65/28, cardiogenic shock with cardiac index of 1.75
Progress Note - Plant [employer]
Subjective
Date of Service: August 29, 2024:
He feels about the same. Somewhat more comfortable having undergone paracentesis for over 3 L.
Medications: IV heparin, furosemide IV drip, amiodarone 200 mg a day, aspirin 81 mg a day, Xalatan, rosuvastatin 10 mg a day, sertraline 50 mg a day, insulin, hydralazine 37.5 3 times daily, isosorbide mononitrate 30 mg daily, insulin, MiraLAX,
intravenous chlorothiazide 0.5 g IV twice daily, Symbicort, Xopenex, Atrovent,
Blood pressure is 109/63, pulse 96, afebrile, sats 95%, weight is 129.3 kg, down 1.6 kg intake and output +0.5 kg, tachypneic with minimal movement, diminished breath sounds in bases, aortic stenosis murmur, neck veins elevated, elevated JVD,
abdomen less tense, still with edema
White count 9.9, hemoglobin 13.2, platelets 91, had been 78, creatinine is 2.4, had been 2, was 2.7 on admission
EKG yesterday sinus rhythm with ventricular pacing
Objective
Labs:
08/29/24 02:57
08/29/24 02:57
Labs
Hgb 13.2 g/dL (13.0-18.0) 08/29/24 02:57
Hct 38.8 % (39.0-52.0) L 08/29/24 02:57
Plt Count 91 10^3/uL (130-400) L 08/29/24 02:57
APTT 92.7 Sec (23.4-35.0) H 08/29/24 02:57
Sodium 130 mmol/L (135-145) L 08/29/24 02:57
Potassium 4.0 mmol/L (3.5-5.1) 08/29/24 02:57
BUN 66 mg/dl (9-20) H 08/29/24 02:57
Creatinine 2.4 mg/dL (0.7-1.3) H 08/29/24 02:57
Glucose 158 mg/dl (70-99) H 08/29/24 02:57
Vital Signs and I&O:
Vital Signs
Temp Pulse Resp BP Pulse Ox
36.8 C 96 16 109/63 95
08/29/24 08:50 08/29/24 08:50 08/29/24 08:50 08/29/24 08:50 08/29/24 08:50
Vital Signs
Temp Pulse Resp BP Pulse Ox
36.8 C 96 16 109/63 95
08/29/24 08:50 08/29/24 08:50 08/29/24 08:50 08/29/24 08:50 08/29/24 08:50
Intake & Output
01/19/08/28/24 08/29/24 08/30/24
07:59 07:59 07:59 07:59
Intake Total 2163.6 / 2703.3 2392.8 / 2674.5 1751.1 / 1751.1
Output Total 1645 / 1720 1210 / 1255 1060 / 1060
Balance 518.6 / 983.3 1182.8 / 1419.5 691.1 / 691.1
Physical Exam
Physical Exam
See above
[2024-08-29 09:14] LABS: Body Fluid Albumin 2.2 g/dl; Body Fluid Protein 3.8 g/dl
[2024-08-29] MEDS: STERILE WATER FOR INJECTION 18 ML IV (09:25)
[2024-08-29] MEDS: NOVOLOG FLEXPEN-HIGH RESISTANCE 1 UNITS SC (09:25)
--- NOTE | 2024-08-29 09:25 | CON.ONC ---
Documented by User: MALA Norton 08/29/24 10:56
Impression
Impression
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
Possible cirrhosis -GI evaluation underway. Hx ETOH use
JAMES, CPAP non-compliance
JAI on CKD3
acute thrombocytopenia -nml on admission, lorenzo 78,000, now improved to 91,000
Plan
Plan
f/u paracentesis cytology & culture
monitor for infection
check B12, folate, fibrinogen
f/u HIT
medications could be contributing to acute thrombocytopenia
daily CBC, no diff
Patient History
History of Present Illness
74yo M presented 08/21/2024 for elective RHC. Prior to admission, he reports worsening HUSSEIN, increased abdominal distention, increase in LE edema, and weight gain affecting abilities to remain independent in ADLs. He was admitted post cath for
management of acute on chronic HFrEF and cardiogenic shock. CT chest 07/31/24 showed subtle liver nodularity suggestive of cirrhosis, moderate ascites, and a normal spleen. He underwent diagnostic/therapeutic paracentesis today. He is currently
undergoing evaluation for possible TAVR.
Hematology consulted for evaluation of thrombocytopenia. He denies hx of thrombocytopenia which is consistent with [employer] trends dating back to 2008. His platelet count on admission 08/21 was normal and trended down to 125,000 on 08/22 with lorenzo
78,000 on 08/27 and has improved to 91,000 today.
Afebrile, no hypoxia or hypotension.
Past-Medical/Surgical History
PMH Obesity, HTN, HLD, T2DM, Afib on eliquis, LBBB, JAMES not compliance on CPAP
PSH AVR, CABG, ICD, Varicocele repair. Lumbar discectomy 2021. Repair ascending aortic aneurysm/AVR-bovine.
Social cigar smoker, daily ETOH, lives with , retired
Family non-contributory
Patient Medication
�Medication �Instructions �Recorded �Confirmed �Last Taken �Type
metoprolol succinate 25 mg 25 mg PO DAILY Blood pressure 10/01/21 08/21/24 08/20/24 08:00 History
tablet,extended release 24 hr
amiodarone 200 mg tablet 200 mg PO DAILY Arrhythmia 07/23/23 08/21/24 08/20/24 08:00 History
apixaban 5 mg tablet (Eliquis) 5 mg PO BID blood thinner 07/23/23 08/21/24 08/18/24 18:00 History
aspirin 81 mg tablet,delayed 81 mg PO DAILY blood thinner 07/23/23 08/21/24 08/20/24 08:00 History
release
empagliflozin 10 mg tablet 10 mg PO DAILY Diabetes 07/23/23 08/21/24 08/10/24 14:00 History
(Jardiance)
spironolactone 25 mg tablet 12.5 mg (1/2 x 25 mg) PO DAILY 30 03/28/24 08/21/24 08/10/24 08:00 Rx
days #15 tabs
sertraline 50 mg tablet (Zoloft) 50 mg PO HS Depression 06/29/24 08/21/24 08/20/24 20:00 History
latanoprost 0.005 % eye drops 1 drp RIGHT EYE HS Eye Condition 07/13/24 08/21/24 08/20/24 20:00 History
polyethylene glycol 3350 17 gram 17 g PO DAILYPRN PRN constipation 07/29/24 08/21/24 08/19/24 08:00 History
oral powder packet (Miralax)
prednisone 20 mg tablet 40 mg PO DAILY ALLERGIC REACTION 08/21/24 08/21/24 08/20/24 08:00 History
rosuvastatin 10 mg tablet 10 mg PO 1800 High Cholesterol 08/21/24 08/21/24 08/20/24 18:00 History
Active Medications
Generic Name Dose Route Start Last Admin
Trade Name Freq PRN Reason Stop Dose Admin
Acetaminophen 650 mg 08/21/24 09:35 08/27/24 14:30
Acetaminophen 325 Mg Tablet PO 09/18/24 09:34 650 mg
Q4HPRN PRN Administration
mild pain
Amiodarone HCl 200 mg 08/22/24 08:00 08/28/24 08:24
Amiodarone 200 Mg Tablet PO 09/19/24 07:59 200 mg
DAILY DENNISE Administration
Aspirin 81 mg 08/22/24 08:00 08/28/24 08:23
Aspirin 81 Mg (Enteric Coated) Tablet PO 09/19/24 07:59 81 mg
DAILY DENNISE Administration
Bisacodyl 10 mg 08/21/24 12:01
Bisacodyl 10 Mg Rectal Suppository RECTAL 09/18/24 12:00
[id number] PRN
constipation
Budesonide/Formoterol Fumarate 2 puff 08/28/24 20:00 08/29/24 07:38
Symbicort Inhaler 160/4.5 INH 09/25/24 19:59 2 puff
R BID DENNISE Administration
Protocol
Chlorothiazide Sodium 0.5 grams 08/28/24 16:00 08/28/24 16:00
Chlorothiazide (500 Mg) 0.5 Gram Vial IV 09/25/24 15:59 0.5 grams
BID@0800,1600 DENNISE Administration
Dextrose 12.5 grams 08/21/24 12:06
Dextrose 50% (0.5 Grams/Ml) 50 Ml Syringe IV 09/18/24 12:05
[id number] PRN
hypoglycemia
Protocol
Diphenhydramine HCl 25 mg 08/23/24 13:35 08/23/24 13:52
Diphenhydramine 25 Mg Capsule PO 09/20/24 13:34 25 mg
Q4HPRN PRN Administration
itching
Glucagon 1 mg 08/21/24 12:06
Glucagon 1 Mg Vial IM 09/18/24 12:05
PRN PRN
hypoglycemia
Protocol
Hydralazine HCl 37.5 mg 08/23/24 12:06 08/28/24 21:30
Hydralazine 25 Mg Tablet PO 09/19/24 15:59 37.5 mg
TID DENNISE Administration
Heparin Sodium 25,000 units in 250 mls @ 0 mls/hr 08/21/24 17:00 08/28/24 16:25
Heparin 01504 Units/250 Ml IV 250 mls
PER PROTOCOL DENNISE Administration
Protocol
Per Protocol
Insulin Glargine 15 units/ 0.15 mls @ 0 mls/hr 08/24/24 22:00 08/28/24 21:30
Device SC 09/21/24 21:59 0.15 mls
HS DENNISE Administration
As Directed
Furosemide 500 mg in 50 mls @ 3 mls/hr 08/28/24 09:30 08/28/24 21:36
Lasix IV 50 mls
ORDERED RATE DENNISE Administration
30 MG/HR
Insulin Aspart 0 units 08/23/24 07:30 08/28/24 16:21
Insulin Aspart High Resistance 300 Units/3 Ml Pen.Injctr SC 09/20/24 07:29 2 units
AC DENNISE Administration
Protocol
Ipratropium [place] 0.5 mg 08/28/24 20:00 08/29/24 07:38
Ipratropium Nebs 0.5 Mg/2.5 Ml Ampul INH 0.5 mg
R TID DENNISE Administration
Protocol
Isosorbide Mononitrate 30 mg 08/23/24 13:00 08/28/24 08:24
Isosorbide Mononitrate 30 Mg Extended Release Tablet PO 09/20/24 12:59 30 mg
DAILY DENNISE Administration
Latanoprost 1 drop 08/21/24 22:00 08/28/24 21:31
Latanoprost 0.005% (Ophthalmic Solution) 2.5 Ml Bottle RIGHT EYE 09/18/24 21:59 1 drop
HS DENNISE Administration
Levalbuterol HCl 1.25 mg 08/28/24 20:00 08/29/24 07:38
Levalbuterol 1.25 Mg/3 Ml Ampul INH 1.25 mg
R TID DENNISE Administration
Protocol
Lorazepam 0.5 mg 08/23/24 11:07 08/26/24 11:55
Lorazepam 0.5 Mg Tablet PO 09/20/24 11:06 0.5 mg
Q6HPRN PRN Administration
anxiety
Midodrine 5 mg 08/28/24 10:11
Midodrine 5 Mg Tablet PO 09/25/24 10:10
Q4HPRN PRN
SBP<90mmHg
Ondansetron HCl 4 mg 08/21/24 12:01 08/29/24 03:41
Ondansetron 4 Mg/2 Ml Vial IV 09/18/24 12:00 4 mg
Q6HPRN PRN Administration
nausea and vomiting
Polyethylene Glycol 17 grams 08/25/24 12:00 08/28/24 08:24
Polyethylene Glycol Powder 17 Grams Packet PO 09/22/24 11:59 Not Given
DAILY DENNISE
Rosuvastatin Calcium 10 mg 08/21/24 18:00 08/28/24 17:40
Rosuvastatin (Crestor) 10 Mg Tablet PO 09/18/24 17:59 10 mg
DAILY@1800 DENNISE Administration
Senna/Docusate Sodium 1 tablet 08/28/24 12:15
Docusate W/Senna (Desiree-Colace) Tablet PO 09/22/24 11:59
BID PRN
No bowel movement>3 days
Sertraline HCl 50 mg 08/21/24 22:00 08/28/24 21:31
Sertraline 50 Mg Tablet PO 09/18/24 21:59 50 mg
HS DENNISE Administration
Sodium Chloride 0 flush 08/21/24 14:00
Sodium Chloride 0.9% (Flush) Syringe IV 09/18/24 13:59
PER PROTOCOL DENNISE
Sterile Water 18 ml 08/29/24 08:00
Sterile Water For Injection 20 Ml Vial IV 09/26/24 07:59
BID@0800,1600 DENNISE
Review of Systems
-
ROS notable for HPI, otherwise negative
Physical Exam
-
General: No Apparent Distress
HEENT: Moist Mucous Membranes; Negative Jaundice
Cardiology: S1, S2, Murmur and Other (AICD)
Pulmonary: Rales
GI: Soft
Extremities: Pulses Present and Edema (b/l LE trace edema)
Neurology: Non Focal and Other
Skin: Warm
Hematologic / Lymphatic: No Lymphadenopathy
Psych: Calm
Labs
Lab Results
WBC 9.9 10^3/uL (4.8-10.8) 08/29/24 02:57
RBC 4.47 10^6/uL (4.70-6.10) L 08/29/24 02:57
Hgb 13.2 g/dL (13.0-18.0) 08/29/24 02:57
Hct 38.8 % (39.0-52.0) L 08/29/24 02:57
MCV 86.8 fL (80.0-94.0) 08/29/24 02:57
MCH 29.5 pg (27.0-31.0) 08/29/24 02:57
MCHC 34.0 g/dL (33.0-37.0) 08/29/24 02:57
RDW 15.8 % (11.5-14.5) H 08/29/24 02:57
Plt Count 91 10^3/uL (130-400) L 08/29/24 02:57
MPV 10.1 fL (7.4-10.4) 08/29/24 02:57
Abs Immat Gran (auto) 0.1 10^3/uL (0-0.05) H 08/26/24 03:38
Absolute Neuts (auto) 6.3 10^3/uL (1.4-6.5) 08/26/24 03:38
Absolute Lymphs (auto) 0.5 10^3/uL (1.2-3.4) L 08/26/24 03:38
Absolute Monos (auto) 0.7 10^3/uL (0.1-0.6) H 08/26/24 03:38
Absolute Eos (auto) 0.2 10^3/uL (0-0.7) 08/26/24 03:38
Absolute Basos (auto) 0.0 10^3/uL (0-0.2) 08/26/24 03:38
Immature Gran % 0.8 % (0-0.5) H 08/26/24 03:38
Neutrophils % 80.6 % (42.2-75.2) H 08/26/24 03:38
Lymphocytes % 6.6 % (20.5-51.1) L 08/26/24 03:38
Monocytes % 8.9 % (1.7-9.3) 08/26/24 03:38
Eosinophils % 3.1 % (0-6) 08/26/24 03:38
Basophils % 0.0 % (0-2) 08/26/24 03:38
Creatinine 2.4 mg/dL (0.7-1.3) H 08/29/24 02:57
Vital Signs
Vital Signs
Temp Pulse Resp BP Pulse Ox
98.2 F 96 16 109/63 95
08/29/24 08:50 08/29/24 09:05 08/29/24 09:05 08/29/24 09:05 08/29/24 08:50

Documented by User: Mag Olivares MD 08/29/24 13:17
Patient History
History of Present Illness
74yo M presented 08/21/2024 for elective RHC. Prior to admission, he reports worsening HUSSEIN, increased abdominal distention, increase in LE edema, and weight gain affecting abilities to remain independent in ADLs. He was admitted post cath for
management of acute on chronic HFrEF and cardiogenic shock. CT chest 07/31/24 showed subtle liver nodularity suggestive of cirrhosis, moderate ascites, and a normal spleen. He underwent diagnostic/therapeutic paracentesis today. He is currently
undergoing evaluation for possible TAVR.
Hematology consulted for evaluation of thrombocytopenia. He denies hx of thrombocytopenia which is consistent with [employer] trends dating back to 2008. His platelet count on admission 08/21 was low at 140, 152 the month prior, and has trended down
to 125,000 on 08/22 with lorenzo 78,000 on 08/27 and has improved to 91,000 today.
Afebrile, no hypoxia or hypotension.
[2024-08-29] MEDS: PACERONE 200 MG PO (09:27)
[2024-08-29] MEDS: IMDUR (EXTENDED RELEASE) 30 MG PO (09:28)
[2024-08-29] MEDS: ASPIR LOW (ENTERIC COATED) 81 MG PO (09:28)
[2024-08-29] MEDS: APRESOLINE 37.5 MG PO ×3 (09:28→21:16)
[2024-08-29] MEDS: DIURIL 0.5 GRAM VIAL 0.5 GRAMS IV (09:28)
--- NOTE | 2024-08-29 09:30 | PTCARENOTE ---
pt awake and oriented, co poor sleep last night , V paced on monitor BP 106/67 , on room air with sat of 99% , lungs diminished , hypoactive bowels , poor appetite, ross yellow drainage pt is on lasix gtt , pt had a paracentesis on R abdomen in IR
3.2L out , relay telegrapher and technical lead spoke to pt and regarding options and goals of care pt weight down from yesterday 1.6kg , positive 687ml in fluids
[2024-08-29 09:34] LABS: Glucose - Point of Care 135 mg/dl (70-99)
[2024-08-29] MEDS: MIRALAX PO (09:37)
[2024-08-29 09:47] LABS: Body Fluid Mononuclear 84.3 %; Body Fluid Polymorphonuclear 15.7 %; Body Fluid WBC 261 /CUMM
[2024-08-29 10:02] LABS: Body Fluid Second Tech RP
[2024-08-29] MEDS: LASIX 50 IV (11:14)
--- NOTE | 2024-08-29 11:14 | W.PN.INTV ---
Today's Communication / Plan
Recommendations
Follow-up paracentesis cytology and culture
Follow HIT panel
Monitor platelet count
TAVR team consult
Revisit goals of care
Assessment
-
Impression
Mr Carrera is a 74-year-old male with a history of hypertension, hyperlipidemia, CAD/CABG, diabetes, atrial fibrillation and JAMES/CPAP intolerant , AICD in place with subsequent worsening shortness of breath ,underwent elective right heart
catheterization that showed severely elevated filling pressures with low cardiac index necessitating pulmonary artery catheter placement.
His active issues are worsening creatinine/moderate ascites secondary to CHF/worsening heart function
Assessment
Acute on chronic with reduced EF(15-20%)
Paroxysmal Atrial fibrillation
Cardiogenic shock
Obstructive sleep apnea
Worsening renal function/JAI secondary to cardiorenal syndrome
Hyperglycemia
Low platelet count
Anxiety
Nodularity of liver
#Acute on chronic with reduced EF(15-20%)
Extensive cardiac history including a CABG/AICD placed in 06/2024 and paroxysmal atrial fibrillation
Cardiomyopathy-EF 20%-no improvement despite optimal medical therapy
Right heart catheterization results 08/21/2024-significantly elevated filling pressures with low cardiac index-[facility] 08/21/24: RA 30, PA 63/38, PCWP 35-42, CO/CI 2.3/0.96, SVR 1880
08/22/2024-Improvement in RIGHT SIDED PRESSURES AND CARDIAC OUTPUT/INDEX
Cardiology consult appreciated
[place]-Pradeep Catheter pulled out on 08/26/2024
Off milrinone,labile hemodynamics,started on dobutamine,Dobutamine at 7.5mcg/min as blood pressures labile
As per cards -continue to monitor pressures,Continue guideline directed medical therapy as able. Eventually start carvedilol and start SGLT2 inhibitor
Continue diuresis as tolerated-considering Right heart dysfunction
Patient is in positive fluid balance despite max diuresis,now increased lasix infusion to 30mg/hr
Continue heparin infusion
Replete electrolytes as needed,given intense diuresis
Interventional cardiology to assess
Continue oral amiodarone, IV furosemide drip, dobutamine, heparin, hydralazine and isosorbide as per cards
Patient considering hospice, awaiting CT surgery consult
#Paroxysmal Atrial fibrillation
Continue heparin infusion as 4ts score, show low probability of HIT
Platelet count improving
Continue oral amiodarone for heart rate control
#CARDIOGENIC SHOCK
Secondary to atrial fibrillation and reduced LVEF
Worsening heart function also attributable to high aortic gradient
TAVR team to see the patient and discuss the options and prognosis
Patient is still on dobutamine infusion at 7.5 mcg/h
#JAMES
Refusing Bipap at night
VBGs(08/28/24)show Ph of7.5 and carbon dioxide of 34
#Worsening renal function/JAI secondary to cardiorenal syndrome
Patient's serum creatinine is worsening and is up to 2.4 now
Patient is on max diuresis, Lasix drip at 30 mg/h and Diuril twice daily
Will not accept as per the patient dialysis
Continue diuresis, patient still retaining fluid and is in positive fluid balance despite the diuresis
Patient awaiting discussion with TAVR team before reviewing his goals of care
#Hyperglycemia
Patient has blood sugar readings
HbA1c 7.2,07/14/2024
Insulin resistance on sliding scale changed to high
Lantus 15 units added at night,continue to monitor and titrate up as needed
Monitor blood sugar levels
#Low Platelet count
Abdominal ultrasound showed mild abdominopelvic ascites 08/22/2024
FINDINGS: There is mild abdominopelvic ascites. The largest pocket is in the lateral left lower quadrant.
There is a moderate right pleural effusion.
Elevated liver enzymes
On heparin infusion for 4T-score showed low probability, HIT panel pending, platelet count improving, can continue heparin infusion
Dilutional?
GI evaluation was done, given normal albumin, normal platelet, normal spleen cirrhosis unlikely, but at the same time the CT showed mild nodularity of liver and patient has history of heavy alcohol use, paracentesis was done today by IR, 3.2 L of
fluid drained, increased protein in fluid suggestive of ascites secondary to congestive heart failure
Continue to monitor
#ANXIETY
Continue zoloft
Ativan as needed
Patient feeling better
Full code
DVT prophylaxis on heparin infusion
Subjective Dataa
Subjective Data
Date of Service:
Date of Service: August 29, 2024
Chief Complaint: Vault Installer Follow Up and Pulmonary Follow Up
Subjective:
Patient did not sleep well last night, had an episode of vomiting and bowel movement, did not feel nauseous, states it is normal for him to throw up sometime with dry heaves prior to admission
Feels his abdominal swelling has gone down since paracentesis in the morning, 3.2 L fluid was drained
Patient waiting for CT CAP/sort supervisor consult for his TAVR, before deciding his goals of care
Review of Systems
General: Other (Reviewed and negative)
Objective Data
Data Reviewed
Vital Signs / I&O / Oxygen:
Vital Signs
Temp Pulse Resp BP Pulse Ox
98.2 F 95 16 100/56 95
08/29/24 08:50 08/29/24 09:28 08/29/24 09:05 08/29/24 09:28 08/29/24 08:50
Intake and Output
08/28/24 08/29/24 08/30/24
06:59 06:59 06:59
Intake Total 2390.8 / 2432.5 1792.8 / 1792.8
Output Total 1240 / 1285 1105 / 1105
Balance 1150.8 / 1147.5 687.8 / 687.8
SaO2 95
Nasal Cannula flow liters per 2
minute
Physical Exam
General: Comfortable and Other (Morbidly obese, breathing on room air, tired as did not sleep well last night)
HEENT: Normocephalic, Anicteric and Other (Breathing on room air)
Cardiovascular: S1-S2, Regular Rhythm, Murmur (Soft systolic murmur in right upper sternal border), Peripheral Edema (+2 lower extremity pitting edema bilaterally) and Other (Tachycardia)
Respiratory: Rhonchi and Non-Labored Respirations
GI: Soft, Distended (Moderate), Non Tender and Normal Bowel Sounds
Neurology: Awake, Oriented and Other (Insight and judgment intact)
Skin: Warm, Dry and Good Color
Labs/Micro/Reports
Lab Data
08/29/24 02:57
08/29/24 02:57
Laboratory Results
08/29/24
02:57
APTT 92.7 H
--- NOTE | 2024-08-29 11:57 | CM ---
CM following re: discharge planning.
Discussed in Rounds, reviewed pt's chart, met with pt and pt's family at bedside. Per Rounds meeting, undergoing evaluation for possible TAVR, possible goals of care discussion, continue supportive care.
Pt and OT continue recommending acute rehab. Pt is aware, [facility] liaison following.
D/C plan: [facility] when medically stable.
CM will follow with discharge plan updates as hospitalization progresses
--- NOTE | 2024-08-29 12:00 | W.PN.NEPH.PH ---
Today's Communication / Plan
-
reduce lasix
Assessment/Plan
-
74 y/o M, hx of Obesity, HTN, HLD, T2DM, Afib on eliquis, Hx of LBBB, hx of BioAVR and 1 vessel CABG, JAMES not compliance on CPAP, s/p ICD presents to collaborating supervising physician for elective RHC. . He was previously on Lasix, later trialed on Bumex (developed rash)
and now is on Torsemide. Today's RHC showed cardiac index of 1.0 and elevated wedge pressures of 37
renal consult for acute on chronic kidney disease with a baseline creatinine 1.6-1.8 with admitting creatinine 2.2.
Impression:
JAI
CKD (1.6-1.8)
Decompensated heart failure reduced ejection fraction 15%
Atrial fibrillation
ICD
Hyponatremia
Thrombocytopenia
Bioprosthetic aortic valve/
Plan:
Follow BMP
Given that there has been no significant increase in urine output I will reduce diuretic regimen to the least dosing required to affect stable diuresis
Fortunately, we do not need to force diuresis at this time given that he is not on supplemental oxygen and his weights are not climbing.
Awaiting discussion regarding TAVR options. He understands that he would require contrast exposure in order to undergo evaluation. This could certainly result in ESRD.
He said that he would consider dialysis at this time if necessary.
We discussed the poor mortality of dialysis and cardiorenal patients
Critical care time spent 45 minutes
-
-
Date of Service: August 29, 2024
CC / HPI / ROS
-
Chief Complaint:
Shortness of breath
History of Present Illness:
JAI/Cr worse to 2.4
platelets remain low 91
net positive I/O despite lasix gtt and diuril
remains on dobutamine for decompensated HFrEF
Na low 130
Review of Systems:
no overt SOB, not on supplemental O2
no CP
Nonoliguric via ross
Labs
-
Labs:
WBC 9.9 10^3/uL (4.8-10.8) 08/29/24 02:57
RBC 4.47 10^6/uL (4.70-6.10) L 08/29/24 02:57
Hgb 13.2 g/dL (13.0-18.0) 08/29/24 02:57
Hct 38.8 % (39.0-52.0) L 08/29/24 02:57
Plt Count 91 10^3/uL (130-400) L 08/29/24 02:57
Sodium 130 mmol/L (135-145) L 08/29/24 02:57
Potassium 4.0 mmol/L (3.5-5.1) 08/29/24 02:57
Chloride 90 mmol/L (98-107) L 08/29/24 02:57
Carbon Dioxide 27 mmol/L (22-30) 08/29/24 02:57
BUN 66 mg/dl (9-20) H 08/29/24 02:57
Creatinine 2.4 mg/dL (0.7-1.3) H 08/29/24 02:57
eGFR 27.28 08/29/24 02:57
Glucose 158 mg/dl (70-99) H 08/29/24 02:57
Calcium 8.6 mg/dl (8.4-10.2) 08/29/24 02:57
Ajh-L-Dbfjiyxpanb Pept 98213 pg/ml 08/21/24 17:10
Albumin 3.7 g/dl (3.5-5.0) 08/25/24 03:15
Physical Exam
-
Vital Signs:
Vital Signs
Temp Pulse Resp BP Pulse Ox
98.2 F 96 14 100/56 96
08/29/24 08:50 08/29/24 11:00 08/29/24 11:00 08/29/24 09:28 08/29/24 11:00
Cardiovascular:: Regular rate and rhythm
Respiratory:: Bilateral: Coarse
Lung Excursion:: Normal
Abdomen:: Nontender and Soft
Bowel Sounds:: Normal
Extremity Edema:: +3: Bilateral:
[2024-08-29] MEDS: NOVOLOG FLEXPEN-HIGH RESISTANCE 2 UNITS SC ×2 (12:17→17:01)
[2024-08-29 12:20] LABS: Glucose - Point of Care 169 mg/dl (70-99)
[2024-08-29] MEDS: HEPARIN 25000 UNITS/250 ML IV (12:21)
--- NOTE | 2024-08-29 15:06 | PTCARENOTE ---
no change , pt resting oob in chair
--- NOTE | 2024-08-29 15:48 | W.PN.HOSP.TC ---
Today's Communication/Plan
-
Maintained on Lasix/dobutamine drip
Follow renal function
Follow acetic fluid studies
Await serology for cirrhosis workup
Assessment / Plan
Assessment / Plan
Acute on chronic heart failure with reduced ejection fraction, EF 25-30%
Cardiomyopathy, mixed without improved ejection fraction despite optimal medical therapy
Cardiogenic shock
s/p bio AVR
s/p [employer] biventricular ICD 07/07/2024
- BNP 17,500 at admission
- s/p RHC with Severely elevated right and left-sided filling pressures with severe pulmonary hypertension and severely reduced cardiac output (cardiac index .96) in the setting of elevated systemic vascular resistance. Wedge 35.
- s/p swan Pradeep cath placement 08/22
- s/p Milrinone. now placed on Dobutamine, currently 7.5mcg
- Patient have been switched to IV Lasix drip. Getting metolazone 10 mg daily as well
- sodium/fluid restriction
- On hydralazine/Imdur for afterload reduction
- Remains on Lasix/dobutamine drip
- await CTS team for evaluation of TAVR
JAI on CKD stage 3b, acute cardiorenal state
Hypervolemic Hyponatremia
- Na has trended down to 129 today,
- Nephrology following
Ascites
Cirrhosis
-Liver morphology showing changes of cirrhosis on CT chest July
-Patient underwent paracentesis of 3.2 L acetic fluid, SAAG to be caculated
-GI following and test sent to check for etio of cirrohosis
JAMES not using CPAP at home
- continue nocturnal BIPAP
- Pum following
Hypokalemia, replete as needed
LBBB
Hx NSVT
- s/p [employer] biventricular ICD 07/07/2024
History of atrial fibrillation s/p cv 07/23/2023
- continue Amiodarone
- IV Heparin drip requires intensive monitoring of PTTs; holding Eliquis in case additional support procedures needed for advanced CHF
History of COVID September 2021
HTN
- Aldactone/BB held. on Hydralazine with Cardiology titrating
HLD
- continue statin
DM2
- hold Jardiance
- continue SSI
- A1c: 7.2% recently
CAD s/p 1 vessel CABG 2009
- continue ASA/Statin
s/p bioAVR 2009
H/o Cough syncope
Radiculopathy
Depression - on Zoloft
Ocular migraines
Renal calculi
Arthritis
DVT ppx: IV Heparin
Code: Full code after re-discussed with daughter
Care plan discussed with nephrology/gastroenterology
Total critical care time 40 mins . Total critical care time documented does not include time spent on separately billed procedures or the services of residents, students, nurses or physician assistants. I personally saw and examined the patient. I
have reviewed all diagnostic interpretations and treatment plans as written. I was present for the salcedo portions of any procedures performed and the inclusive time noted in any critical care statement. Critical care time includes patient management
by me, time spent at the patients bedside, time to review lab and imaging results, discussing patient care, documentation in the medical record, and time spent with the family or caregiver.
Anticipated Discharge: > 48 hours
Subjective/Interval History
-
Date of Service: August 29, 2024
Resting comfortably in bed
Abdomen distention better
No nausea or vomiting
Not hypoxic
Remains on dobutamine/Lasix drip
Objective Data
-
Vital Signs:
Vital Signs
Temp Pulse Resp BP Pulse Ox
98.1 F 93 17 100/56 96
08/29/24 11:25 08/29/24 15:00 08/29/24 15:00 08/29/24 09:28 08/29/24 15:00
I&O
08/28/24 08/29/24 08/30/24
06:59 06:59 06:59
Intake Total 2390.8 / 2432.5 1792.8 / 1835.5 630.3 / 630.3
Output Total 1240 / 1285 1105 / 1155 400 / 400
Balance 1150.8 / 1147.5 687.8 / 680.5 230.3 / 230.3
Review of Systems
-
Respiratory: Reports No Symptoms
Cardiac: Reports No Symptoms
Abdomen/GI: Reports No Symptoms
Physical Exam
-
General: No Apparent Distress and Obese
HEENT: Negative Oxygen
Respiratory: Clear to Auscultation
Cardiac: Regular Rhythm and S1/S2; Negative Murmur
GI: Soft, Nontender, Nondistended and Normal Bowel Sounds
Musculoskeletal: Edema, Right Lower Extrem and Edema, Left Lower Extrem
Neuro: Awake, Alert and Oriented
--- NOTE | 2024-08-29 15:59 | W.PN.GI.CBS2 ---
Today's Communication / Plan
-
Continue current care
Assessment / Plan
-
Summary: 74yo male admitted with persistent weight gain, abdominal distention undergoing eval by Cardiology with hx AVR 2009 and now being considered for TAVR. During eval CT chest 07/31/24 showed subtle liver nodularity suggestive of cirrhosis,
moderate ascites, normal spleen. US doppler 08/01/24 showed mildly dilated hep v and biphasic flow c/w elevated pulm pressure/CHF and moderately damplene hepatopedal flow portal v but no PVT. Plt and albumin have been normal, but plt count has
dropped since admission, current eval for HIT. Heavy ETOH history
Impression:
s/p AVR 2009
CHF
ARF
Ascites -s/p paracentesis with removal of 3.2 L
Heavy EtOH hx
Acute thrombocytopenia-evaluated by hematology.
Recommendations:
Based on ascitic fluid analysis-high SAAG with high protein ascites ( Total protein 3.8 ) -in favor of right heart failure
Check INR
Hep B/ C negative 08/01/24. Ferritin normal. Autoimmune markers pending
Dr. Burr Discussed with Dr Obando. He will be getting CT CAP with IV contrast as part of his TAVR work up, so I will hold off on contrast imaging study and await results when CT CAP ordered.
If above imaging nonconclusive will recommend MRI abdomen/elastography
His normal plt, albumin, spleen argues against cirrhosis, but his CT chest suggested nodularity c/w cirrhosis
Follow-up with hematology- workup for acute thrombocytopenia
Continue further care per cardiology
Total Time Spent with Patient (in minutes): 35
Subjective
Subjective
Date of Service: August 29, 2024
Patient underwent paracentesis with removal of 3.2 L fluid. Denies any GI complaints
Objective
Data Reviewed
Laboratory Data:
Laboratory Results
08/29/24 02:57
08/29/24 02:57
Laboratory Results
APTT 92.7 Sec (23.4-35.0) H 08/29/24 02:57
Magnesium 2.5 mg/dl (1.6-2.3) H 08/26/24 03:38
Total Bilirubin 1.2 mg/dl (0.2-1.3) 08/25/24 03:15
AST 56 U/L (17-59) 08/25/24 03:15
ALT 77 U/L (0-50) H 08/25/24 03:15
Alkaline Phosphatase 67 U/L (38-126) 08/25/24 03:15
Vital Signs and I&O:
Vital Signs
Temp Pulse Resp BP Pulse Ox
98.2 F 93 17 100/56 96
08/29/24 15:53 08/29/24 15:00 08/29/24 15:00 08/29/24 09:28 08/29/24 15:00
I&O
08/28/24 08/29/24 08/30/24
06:59 06:59 06:59
Intake Total 2390.8 / 2432.5 1792.8 / 1835.5 630.3 / 630.3
Output Total 1240 / 1285 1105 / 1155 400 / 400
Balance 1150.8 / 1147.5 687.8 / 680.5 230.3 / 230.3
Physical Exam
Physical Exam
GI: Soft, Distended and Non Tender
[2024-08-29 17:00] LABS: Glucose - Point of Care 198 mg/dl (70-99)
[2024-08-29] MEDS: CRESTOR 10 MG PO (17:00)
[2024-08-29] MEDS: STERILE WATER FOR INJECTION IV (17:01)
--- NOTE | 2024-08-29 18:28 | PTCARENOTE ---
no change in assessments , continues to be oob in chair , slept throughout day in chair
--- NOTE | 2024-08-29 19:15 | PTCARENOTE ---
Rec'd pt sitting on chair, assisted back to bed w/ assist of 2, denies pain, cooperative, Vpaced, R rad chino w/ good wave form, flushes well, accurate to cuff, Anuel Wang, [place] aware of bp, midodrine 5mg po given, pt asymptomatic at this time w/ low
bp, dobutrex gtt at 7.5 keely, lasix gtt at 20mg/hr, hep gtt at 1200 units, weak distal pulses, + LE edema, RA, lungs decr in bases, sat 94, + HUSSEIN, enc to use IS- reaches 1000, + bowel sounds, abd distended, non tender, R paracentesis site intact w/
dsg, no n/v, ross draining aylin urine
[2024-08-29] MEDS: ProAmatine 5 MG PO (19:17)
[2024-08-29] MEDS: ZOLOFT 50 MG PO (21:16)
[2024-08-29] MEDS: XALATAN OPHTHALMIC SOLUTION 1 DROP RIGHT EYE (21:17)
[2024-08-29] MEDS: LANTUS 0.15 UNITS SC (21:22)
[2024-08-29 21:24] LABS: Glucose - Point of Care 167 mg/dl (70-99)
--- NOTE | 2024-08-29 22:25 | PTCARENOTE ---
BP 85/48 via cuff, pt resting, B POOJA Wang aware- will cont to monitor
--- NOTE | 2024-08-29 23:49 | PTCARENOTE ---
sys reviewed, changes noted, CHG Bath done, linens changed
[2024-08-30] MEDS: LASIX 50 IV (03:54)
--- NOTE | 2024-08-30 04:00 | PTCARENOTE ---
sys reviewed, watching TV, unable to sleep
[2024-08-30 04:11] LABS: Hematocrit 37.9 % (39.0-52.0); Hemoglobin 12.6 g/dL (13.0-18.0); Mean Corp Hgb Conc. 33.2 g/dL (33.0-37.0); Mean Corpuscular Hgb 28.6 pg (27.0-31.0); Mean Corpuscular Volume 86.1 fL (80.0-94.0); Mean Platelet Volume 11.8 fL (7.4-10.4); Platelet Count 85 10^3/uL (130-400); Red Cell Dist. Width 15.6 % (11.5-14.5); White Blood Cell Count 9.8 10^3/uL (4.8-10.8)
[2024-08-30 04:18] LABS: INR 1.32; PT 16.7 Sec (11.4-14.6)
[2024-08-30 04:19] LABS: Fibrinogen 266 MG/DL (199-459)
[2024-08-30 04:20] LABS: APTT 74.9 Sec (23.4-35.0)
[2024-08-30 04:32] LABS: Blood Urea Nitrogen 68 mg/dl (9-20); Calcium 8.3 mg/dl (8.4-10.2); Carbon Dioxide 26 mmol/L (22-30); Chloride 89 mmol/L (98-107); Estimated Creatinine Clearance 35 ml/min; Glucose 138 mg/dl (70-99); Potassium 3.6 mmol/L (3.5-5.1); Sodium 128 mmol/L (135-145); eGFR 25.98
[2024-08-30] MEDS: DOBUTREX 500 MG 250 IV ×3 (05:35→22:35)
[2024-08-30 05:39] VITALS: BMI 37.5
[2024-08-30 05:40] LABS: Folate 10.4 ng/ml (2.76-20); Vitamin B12 697 pg/ml (239-931)
[2024-08-30] MEDS: ATROVENT NEBULES 0.5 MG INH ×3 (07:30→20:49)
[2024-08-30] MEDS: SYMBICORT 160/4.5 MCG INHALER 2 PUFF INH ×2 (07:30→20:49)
[2024-08-30] MEDS: XOPENEX 1.25 MG INHALANT SOLUTION INH ×3 (07:30→20:49)
[2024-08-30 07:34] LABS: Glucose - Point of Care 132 mg/dl (70-99)
[2024-08-30] MEDS: NOVOLOG FLEXPEN-HIGH RESISTANCE SC (07:47)
[2024-08-30] MEDS: MIRALAX PO (07:56)
[2024-08-30] MEDS: STERILE WATER FOR INJECTION IV ×2 (07:57→15:55)
--- NOTE | 2024-08-30 08:00 | PTCARENOTE ---
Received patient from film processing shift supervisor. Patient is sleepy, pleasant, cooperative. States he 'feels better'. Is hoping to determine plan of care for testing today to see if he is eligible for TAVR. He is AAOx4, on room air, Vpaced on monitor. Has
edema to lower extremities and elle area. He is on an 1800 scarlett diet, poor appetite, Valdovinos for urine, has sediment in tubing. Valdovinos care completed. Right groin and lateral thigh has bruising. Heparin, Dobutamine, and lasix gtt infusing.
Assessment as charted.
[2024-08-30 08:05] VITALS: BP 95/63
[2024-08-30] MEDS: APRESOLINE 37.5 MG PO ×2 (08:12→16:11)
[2024-08-30] MEDS: DESENEX/MITRAZOL/ZEASORB 1 APPLIC TOPICAL (08:13)
[2024-08-30] MEDS: PACERONE 200 MG PO (08:13)
[2024-08-30] MEDS: ASPIR LOW (ENTERIC COATED) 81 MG PO (08:13)
[2024-08-30] MEDS: IMDUR (EXTENDED RELEASE) 30 MG PO (08:13)
--- NOTE | 2024-08-30 08:29 | W.PN.INTV ---
Today's Communication / Plan
Recommendations
Check CT TAVR (high-resolution EKG gated without contrast) to assess candidacy for TAVR
Defer TAVR to cardiology
As the morning progressed he became more confused and was hallucinating and having jerking movements, seems related to uremia
Check CT head due to confusion � shows no acute intracranial abnormality
Check ABG to evaluate for hypercapnia given he has been refusing BiPAP at night
Trend UOP and sCr
If refractory to diuretics can consider hemodialysis, which the pt previously said he does not want although now he is amenable to this
Strict I/O
Aspiration precautions
Up OOB as tolerated
Follow-up paracentesis cultures from 08/29
PT/OT
Keep K>4, Mg>2
If pt not a candidate for a TAVR, he may want to go home on hospice as he 'can not do this anymore.'
Guarded prognosis
Recreation Worker services will continue to follow along while he remains in ICU
Assessment
-
74-year-old obese occasional cigar smoking male with a history of hypertension, hyperlipidemia, CAD/CABG, diabetes, atrial fibrillation and JAMES/CPAP intolerant recently had AICD placed with subsequent history of difficult to control CHF underwent
elective right heart catheterization noted to have severely elevated filling pressures with low cardiac index necessitating ICU/pulmonary artery catheter/inotropes-adult school counselor consulted for CHF/critical care management 08/22/2024.
Impression:
CHF-acute on top of chronic with reduced EF
Cardiomyopathy status post recent biventricular ICD 07/07/2024
JAI with suspected cardiorenal syndrome
Hyperglycemia
Hypocalcemia � now resolved
Elevated LFTs
Right sided pleural effusion likely due to cirrhosis with a hepatohydrothorax
Obesity
History of heavy alcohol use
Conditions present prior to admission:
Hypertension.
Hyperlipidemia.
Diabetes.
CAD/CABG/AVR.
Cardiomyopathy-EF 20%
ICD June 2025.
JAMES/CPAP intolerant.
Atrial fibrillation on Eliquis.
Abnormal CT abdomen-suggestive of cirrhosis 07/2024
Varicocele repair. Lumbar discectomy 2021. Repair ascending aortic aneurysm/AVR-bovine.
Plan
Patient critically ill and admitted to ICU to obtain pulmonary artery catheter, inotropes, diuresis-extensive cardiac and pulmonary workup summarized below
- He remains on dobutamine gtt and lasix gtt changed to intermittent dosing (lasix drip was started 08/27/2024)
- [place]-Pradeep has been removed (08/26/2024)
Supplemental oxygen as needed to keep SpO2 >90%
Incentive spirometry q1hr while awake
CPAP or BiPAP at night as tolerated-in the past has been intolerant-willing to use --> did not tolerate BiPAP overnight 08/25 - 08/26/2024, and refused again last night and the night before --> I will DC
- Blood gas on AM of 08/28 showed metabolic alkalosis with appropriate respiratory compensation --> re-check ABG today given his worsening confusion that started later this AM (08/30/2024)
Aspiration precautions
Nebulizers if needed-currently not bronchospastic
s/p prednisone taper (completed on 08/24/2024) - was not for pulmonary-had rash possibly Bumex related as an outpatient
Cardiology following-correspondence reviewed
Right heart catheterization results reviewed-significantly elevated filling pressures with low cardiac index-[facility] 08/21/24: RA 30, PA 63/38, PCWP 35-42, CO/CI 2.3/0.96, SVR 1880, PVR: 6.85 FARRAR
Pulmonary artery catheter placement-08/22/2024-improvement in cardiac index, PCWP, RA-pressure, SVR + PVR
PAC was removed on 08/26/2024 after it malpositioned ([place]-Pradeep was accidentally withdrawn somehow by the patient)
Continue diuresis as tolerated-intensified per nephrology - now off lasix gtt and on intermittent lasix dosing
Inotropes continue-currently on dobutamine s/p milrinone
Monitor renal function, electrolytes, intake/output, lower extremity edema and weight
Replace electrolytes as needed
PO amiodarone continues as well
Heparin drip continues-Eliquis on hold--eventual change back
SOFIYA panel negative
Eventually start GDMT (hydralazine on for afterload reduction)
Checking CT TAVR today without contrast (high resolution EKG gated scan) to evaluate his candidacy for TAVR
Monitor renal function
Replace electrolytes
Acute cardiorenal state
Nephrology following-correspondence reviewed
His worsening confusion today with jerking movements could be due to uremia
Monitor ascites-not enough fluid for diagnostic or therapeutic paracentesis per abdominal ultrasound on 08/22/2024 --> he went down for paracentesis today and 3.2 L of clear, dark aylin-colored exudative fluid was removed (SAAG: >1.1, protein >2.5
indicating cardiac ascites)
Abdominal ultrasound summarized below
Trend LFTs
Liver appeared normal on recent abdominal ultrasound on 08/01/2024, hence doubtful he has cirrhosis despite CT chest on 07/31/2024 showing nodular external surface of liver concerning for cirrhosis
Monitor MSAS-no signs of withdrawal
Alcohol withdrawal treatment protocol if indicated
Ativan as needed - not currently indicated
Monitor blood sugar with goal 140-180
Insulin supplementation as needed with basal�bolus SQ insulin dose
Last saw Dr. Mars/Gabrielle Macario CNP on 11/29/[address] Mars reviewed with as well as daughter at the bedside 08/22/2024, 08/23/2024, 08/24/2024, 08/25/[address]23
[address] Obrien answered all the family's questions at bedside in layman's terms to their satisfaction
Critical care statement: A total of 46 minutes of critical care time was provided for this patient today. This includes management of unstable vital signs, evaluation of the patient at bedside, reviewing the patient's pertinent medical records
including radiographs, pressor and inotrope management, diuresis management, microbiology, laboratory evaluations, and discussion with primary team, consultants, pharmacy, nutrition, physical therapy, case management, charge nurse, critical care
nursing, and respiratory therapy.
Diagnostic data:
CXR 10/01/21: cardiomegaly with slightly prominent pulmonary vascularity which could represent mild CHF vs atypical acute pulmonary edema. possible left basilar patchy opacity such as pna������
��
Chest x-ray 12/10/21-NAD
Chest x-ray 08/22/2024-no acute disease in the chest, cardiomegaly, waterbed configuration
CT Chest 09/29/21: no PE. small bilateral pleural effusions. mild peripheral ground glass densities in lower lung zones b/l suggesting mild residual pna.��
CT chest 07/11/23-no pulmonary embolism, minimal right pleural effusion, minimal pleural thickening left hemithorrax, no adenopathy or nodules.
CT chest 07/31/2024-small right pleural effusion, moderate ascites, liver contour appears to be subtly nodular suggestive of cirrhosis, basilar atelectasis
Abdominal ultrasound 08/22/2024 - mild abdominal pelvic ascites, slightly progressed. Moderate right pleural effusion.
US BLE 10/01/21: negative for DVT������������������
ECHO 08/11/21: ischemic heart disease with mildly reduced systolic function. LV EF 40-45%. moderate LVH. RV base mildly enlarged. Tricuspid and mitral regurgitation. s/p bioprosthetic aortic valve prosthesis.�������
Nuclear stress test 06/12/21-EF 25%, moderate risk study�������
Echocardiogram 06/28/23-EF 20-25%, stage II diastolic dysfunction, bioprosthetic aortic valve, PA systolic 45, rhythm atrial fibrillation�������
Stress test 07/13/23-revealed a moderate in size, medium severity fixed basal to distal inferior and inferoseptal perfusion defect, EF 21%, overall high risk study.�������
Echo 02/16/2024: EF 25%. Global hypokinesis with basal inferior and basal inferolateral akinesis. Stage III diastolic dysfunction. Moderate to severe MR. Severely dilated left atrium. #23 bovine aortic valve with peak/mean gradient 46/29 mmHg.
Mild AI. Mild TR. PAP 35 mmHg
Echo 07/14/2024: EF 25-30% with global hypo, enlarged RV, ICD in place well seated #23 bovine AVR with peak/mean grad of 27/19 mmHg respectively, trace pericardial effusion.
Echo 08/21/24: EF 15-20%, AVR with mean gr 30, PA 30
Cardioversion 07/23/23-successful cardioversion from atrial fibrillation to sinus rhythm.
Cardiac catheterization 03/28/2024: LM: LI. LAD: Moderate to severe diffuse atherosclerotic plaque. D2 has 30% stenosis. Left circumflex: Mid 60 to 70% stenosis. RCA: LI.
HEMODYNAMICS : (mmHg) RA (m) : 22; RV (s/d,m) : 72/14, 24; PA (s/d, m) : 72/34, 50; PCWP (m) : 34, V waves to 53 mmHg; PA saturation: 62.5% on room air; AO saturation: 93.6% on room air;
Cardiac Output : 5.58 L/min; Cardiac Index : 2.23 L/min/m-2; Systemic vascular resistance: 889 dsc^(-5); Pulmonary vascular resistance: 2.87 willams unit; AO (s/d) : 102/61; LV (s/d) : 131/21; LVEDP : 30
Estimated invasive transaortic gradient of 27 mmHg, aortic valve area 1.3 cm�
Significantly elevated right and left-sided filling pressures with severe pulmonary hypertension and normal cardiac output. Borderline low systemic vascular resistance.
PFT 12/19/21-FEV1 2.55-72%, FVC 3.77 L-70%, no significant response, TLC 80%, 90%, DLCO 64%. Mild obstruction and moderate reduction in diffusing capacity.�������
Spirometry 07/29/23-FEV1 1.18-34%, FVC 1.5-39%, no significant BD response. Severe obstruction.
Subjective Dataa
Subjective Data
Date of Service:
Date of Service: August 30, 2024
Chief Complaint: Recreation Worker Follow Up and Pulmonary Follow Up
Subjective:
Patient seen and evaluated this morning. Creatinine continuing to slightly worsen, 2.5 this morning. He feels very weak. Lasix drip being stopped and transitioned to intermittent dosing. Remains on dobutamine drip at 7.5mcgkg/min and heparin
drip. Heart rate 94, BP via A-line: 94/49, and saturating 95% on room air. He denies chest pain, GUTHRIE, nausea, fevers or chills. Having frequent jerking movements and occasional confusion.
Review of Systems
General: Other (Negative unless mentioned above)
Objective Data
Data Reviewed
Vital Signs / I&O / Oxygen:
Vital Signs
Temp Pulse Resp BP Pulse Ox
97.7 F 95 16 95/63 94
08/30/24 04:00 08/30/24 08:13 08/30/24 08:05 08/30/24 08:13 08/30/24 08:05
Intake and Output
08/29/24 08/30/24 08/31/24
06:59 06:59 06:59
Intake Total 1792.8 / 1835.5 1655.8 / 1697.5 83.4 / 83.4
Output Total 1105 / 1155 1410 / 1460 100 / 100
Balance 687.8 / 680.5 245.8 / 237.5 -16.6 / -16.6
SaO2 94
Nasal Cannula flow liters per 2
minute
Physical Exam
General: Respiratory Distress (negative), Comfortable, Chills (negative), Sweats (negative) and Other (Morbidly obese)
HEENT: Normocephalic, Anicteric and Other (thick neck)
Cardiovascular: S1-S2, Regular Rhythm, Murmur (CM heard across precordium), Peripheral Edema (+2 lower extremity pitting edema bilaterally) and Other (Tachycardia)
Respiratory: Wheeze (negative), Crackles (Bibasilar), Rhonchi (negative), Non-Labored Respirations and Stridor (negative)
GI: Soft, Distended (Moderate), Non Tender and Normal Bowel Sounds
Neurology: AO x 3, Tremors (negative) and Depressed
Skin: Warm, Dry, Cyanosis (negative) and Jaundice (negative)
Labs/Micro/Reports
Lab Data
08/30/24 03:51
08/30/24 03:51
Laboratory Results
08/30/24
03:51
PT 16.7 H
INR 1.32
APTT 74.9 H
Microbiology
08/29/24 08:28 Peritoneal Fluid Gram Stain - Preliminary
[2024-08-30] MEDS: HEPARIN 25000 UNITS/250 ML IV (09:18)
--- NOTE | 2024-08-30 09:22 | W.PN.CARDCBS ---
Today's Communication / Plan
-
Weight continues to go down
Creatinine has worsened slightly to 2.5
Continue dobutamine and allow nephrology to manage diuretics
Eventual TAVR but high risk for CT contrast and possible dialysis at present
Impression / Plan
-
PCP: Dr. Chintan Gonzalez
Cardiology: Dr. Gabriel
Impression
Acute on chronic HFrEF with cardiogenic shock
JAI
Cardiomyopathy, mixed without improved ejection fraction despite optimal medical therapy
s/p [employer] biventricular ICD 07/07/2024
LBBB
CAD
s/p bio AVR 2009Paroxysmal atrial fibrillation
s/p cv 07/23/2023 Chronic AC w/ Eliquish/o NSVT
h/o COVID September 2021
HTN
HLD
DM2
JAMES not using CPAP
h/o cough syncope
Radiculopathy
Depression
Ocular migraines
Renal calculi
Arthritis
Lexiscan sestamibi stress test 07/13/2023: Moderate sized medium in severity fixed basal to distal inferior, basal to mid inferoseptal, small mid anterior perfusion defect with no evidence of ischemia. Ejection fraction 21% with severe global
hypokinesis
Cardiac catheterization 03/28/2024: LM: LI. LAD: Moderate to severe diffuse atherosclerotic plaque. D2 has 30% stenosis. Left circumflex: Mid 60 to 70% stenosis. RCA: LI.
HEMODYNAMICS : (mmHg) RA (m) : 22; RV (s/d,m) : 72/14, 24; PA (s/d, m) : 72/34, 50; PCWP (m) : 34, V waves to 53 mmHg; PA saturation: 62.5% on room air; AO saturation: 93.6% on room air;
Cardiac Output : 5.58 L/min; Cardiac Index : 2.23 L/min/m-2; Systemic vascular resistance: 889 dsc^(-5); Pulmonary vascular resistance: 2.87 willams unit; AO (s/d) : 102/61; LV (s/d) : 131/21; LVEDP : 30
Estimated invasive transaortic gradient of 27 mmHg, aortic valve area 1.3 cm�
Significantly elevated right and left-sided filling pressures with severe pulmonary hypertension and normal cardiac output. Borderline low systemic vascular resistance.
RHC 08/21/24: RA 30, PA 63/38, PCWP 35-42, CO/CI 2.3/0.96, SVR 1880
RHC 08/23/24: RA 15, PA 65/28, PCWP 27, CO/CI 4.47/1.75, PA sat 65.6%, SVR 1432, PVR 3.81
Echo 01/2022: Ejection fraction 40%, global hypokinesis, status post AVR with mean gradient of 10 mmHg
Echo 06/28/2023: Dilated right ventricle with ejection fraction of 20 to 25%, status post bioprosthetic AVR with mean gradient of 15 mmHg, dilated right heart with PA systolic of 45 mmHg
Echo 08/03/2023: Ejection fraction 25 to 30%, hypokinetic septum, apex, inferior, anterior and distal lateral pelletier, mild concentric LVH, moderate MR, status post bioprosthetic AVR with mean gradient of 13 mm hG
Echo 02/16/2024: EF 25%. Global hypokinesis with basal inferior and basal inferolateral akinesis. Stage III diastolic dysfunction. Moderate to severe MR. Severely dilated left atrium. #23 bovine aortic valve with peak/mean gradient 46/29 mmHg.
Mild AI. Mild TR. PAP 35 mmHg
Echo 07/14/2024: EF 25-30% with global hypo, enlarged RV, ICD in place well seated #23 bovine AVR with peak/mean grad of 27/19 mmHg respectively, trace pericardial effusion.
Echo 08/21/24: EF 15-20%, AVR with mean gr 30, PA 30
Plan:
His weight is down 5 pounds in the past 24 hours and 8 pounds over the past 48 hours.
Renal function slightly worsened with creatinine of 2.5
Continue dobutamine and nephrology is managing diuretics
Paracentesis is consistent with right heart failure.
Eventual TAVR are but renal insufficiency is a significant obstacle and dye load for cath or CT would lead to dialysis.
If he went on dialysis CT could be done. Unsure if he would need another left cath as last left heart cath was March 2024.
Platelets are stable but remain low. HIT is pending
Clinical summary: 74-year-old man with history of heavy alcohol use, abstinent for 18 months, H/O Obesity, HTN, HLD, T2DM, Afib on eliquis, Hx of LBBB, hx of BioAVR and 1 vessel CABG, JAMES not compliance on CPAP, s/p ICD presents to rn labor delivery for
elective RHC. . He was previously on Lasix, later trialed on Bumex (developed rash) and now is on Torsemide.
RHC on 08/21/24 finds markedly elevated filling pressures with pulmonary capillary wedge pressure of 35 and severely depressed cardiac index of 1 with cardiac output of 2.34.
RHC on 08/22/[address] SG catheter and demonstrated elevated filling pressures with pulmonary capillary wedge pressure of 27, elevated pulmonary pressures of 65/28, cardiogenic shock with cardiac index of 1.75
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
Subjective
Date of Service: August 30, 2024
He has no complaints. He is not on oxygen.
Objective
Labs:
08/30/24 03:51
08/30/24 03:51
Labs
Hgb 12.6 g/dL (13.0-18.0) L 08/30/24 03:51
Hct 37.9 % (39.0-52.0) L 08/30/24 03:51
Plt Count 85 10^3/uL (130-400) L 08/30/24 03:51
PT 16.7 Sec (11.4-14.6) H 08/30/24 03:51
INR 1.32 08/30/24 03:51
APTT 74.9 Sec (23.4-35.0) H 08/30/24 03:51
Sodium 128 mmol/L (135-145) L 08/30/24 03:51
Potassium 3.6 mmol/L (3.5-5.1) 08/30/24 03:51
BUN 68 mg/dl (9-20) H 08/30/24 03:51
Creatinine 2.5 mg/dL (0.7-1.3) H 08/30/24 03:51
Glucose 138 mg/dl (70-99) H 08/30/24 03:51
Vital Signs and I&O:
Vital Signs
Temp Pulse Resp BP Pulse Ox
97.4 F 95 16 95/63 94
08/30/24 08:00 08/30/24 08:13 08/30/24 08:05 08/30/24 08:13 08/30/24 08:05
Vital Signs
Temp Pulse Resp BP Pulse Ox
97.4 F 95 16 95/63 94
08/30/24 08:00 08/30/24 08:13 08/30/24 08:05 08/30/24 08:13 08/30/24 08:05
Intake & Output
08/28/24 08/29/24 08/30/24 08/31/24
06:59 06:59 06:59 06:59
Intake Total 2390.8 / 2432.5 1792.8 / 1835.5 1655.8 / 1697.5 83.4 / 83.4
Output Total 1240 / 1285 1105 / 1155 1410 / 1460 100 / 100
Balance 1150.8 / 1147.5 687.8 / 680.5 245.8 / 237.5 -16.6 / -16.6
Physical Exam
Physical Exam
General: Well developed, well nourished in NAD.
Neck: Supple, no JVD, HJR, carotids +2 B/L, no bruits bilaterally.
Heart: Non displaced PMI, RRR, 2/6 basal systolic murmur, No S3, S4, no rubs.
Lungs: Scattered rhonchi
Abdomen: Distended
Extremities: No clubbing, cyanosis or edema bilaterally.
Neuro: Grossly nonfocal, awake, alert and oriented x3.
[2024-08-30] MEDS: KCL 40 MEQ PO (09:23)
--- NOTE | 2024-08-30 09:38 | W.PN.NEPH.PH ---
Today's Communication / Plan
-
Discontinue Lasix drip and put him on 120 mg twice a day.
Agrees to proceed with CTA and willing to do dialysis if needed with understanding of overall poor mortality in the setting of cardiorenal
Assessment/Plan
-
74 y/o M, hx of Obesity, HTN, HLD, T2DM, Afib on eliquis, Hx of LBBB, hx of BioAVR and 1 vessel CABG, JAMES not compliance on CPAP, s/p ICD presents [facility] for elective RHC. . He was previously on Lasix, later trialed on Bumex (developed rash)
and now is on Torsemide. Today's RHC showed cardiac index of 1.0 and elevated wedge pressures of 37
renal consult for acute on chronic kidney disease with a baseline creatinine 1.6-1.8 with admitting creatinine 2.2.
Impression:
JAI
CKD (1.6-1.8)
Decompensated heart failure reduced ejection fraction 15%
Atrial fibrillation
ICD
Hyponatremia
Thrombocytopenia
Bioprosthetic aortic valve/
Plan:
Follow BMP
Fortunately, we do not need to force diuresis at this time given that he is not on supplemental oxygen and his weights are not climbing. Clinically feels better status post paracentesis of 3.5 L per
He understands that he would require contrast exposure in order to undergo evaluation. We discussed this in detail again today as to the risk benefit of not proceeding to include hospice.
With the understanding of all the risks including contrast-induced nephropathy and/or posterior preop requirements of dialysis and possibly CHEMICAL ENGINEERING INTERN, he agreed to proceed with CTA
This was communicated with all parties involved including critical care and cardiology and critical care nursing staff
I randolph discontinue Lasix drip and put him on 120 mg twice daily
Total Time Spent with Patient (in minutes): 75
-
-
Date of Service: August 30, 2024
CC / HPI / ROS
-
Chief Complaint:
Shortness of breath
History of Present Illness:
JAI/Cr 2.4
platelets remain low 91
remains on dobutamine for decompensated HFrEF
Review of Systems:
no overt SOB, not on supplemental O2
no CP
Nonoliguric via ross
Labs
-
Labs:
WBC 9.8 10^3/uL (4.8-10.8) 08/30/24 03:51
RBC 4.40 10^6/uL (4.70-6.10) L 08/30/24 03:51
Hgb 12.6 g/dL (13.0-18.0) L 08/30/24 03:51
Hct 37.9 % (39.0-52.0) L 08/30/24 03:51
Plt Count 85 10^3/uL (130-400) L 08/30/24 03:51
Sodium 128 mmol/L (135-145) L 08/30/24 03:51
Potassium 3.6 mmol/L (3.5-5.1) 08/30/24 03:51
Chloride 89 mmol/L (98-107) L 08/30/24 03:51
Carbon Dioxide 26 mmol/L (22-30) 08/30/24 03:51
BUN 68 mg/dl (9-20) H 08/30/24 03:51
Creatinine 2.5 mg/dL (0.7-1.3) H 08/30/24 03:51
eGFR 25.98 08/30/24 03:51
Glucose 138 mg/dl (70-99) H 08/30/24 03:51
Calcium 8.3 mg/dl (8.4-10.2) L 08/30/24 03:51
Bxe-A-Vndrlsdhktx Pept 55933 pg/ml 08/21/24 17:10
Albumin 3.7 g/dl (3.5-5.0) 08/25/24 03:15
Physical Exam
-
Vital Signs:
Vital Signs
Temp Pulse Resp BP Pulse Ox
97.4 F 95 16 95/63 94
08/30/24 08:00 08/30/24 08:13 08/30/24 08:05 08/30/24 08:13 08/30/24 08:05
Cardiovascular:: Regular rate and rhythm
Respiratory:: Bilateral: CTA
Lung Excursion:: Normal
Abdomen:: Nontender and Soft
Bowel Sounds:: Normal
Extremity Edema:: None: Bilateral:
--- NOTE | 2024-08-30 11:38 | W.PN.UPDATE ---
Update Note
Progress Note Update
Had a discussion with Eron and his Jane at the bedside. He is feeling much better after paracentesis. 3.2 L of ascites drained yesterday with cytology and lab studies pending. Big picture discussion with patient and regarding goals
of care. He wants to at least pursue the workup for a transcatheter valve and is even willing to consider temporary dialysis if he is able to achieve a better quality of life. In my mind alternative would be home inotrope plus or minus
continuation of ICD therapies. He was sitting in the chair for 6 hours yesterday and symptomatically feels much better on inotrope he. Ongoing discussions and coordination with the TAVR team. Please see separate Dr. Beatty note for full detail.
I have seen Eron in the office for approximately 15 years and was pending a visit to discuss options and goals of care.
--- NOTE | 2024-08-30 11:45 | W.PN.HOSP.TC ---
Today's Communication/Plan
-
maintain on diuretics/dobutamine
f/u weight/cr
TAVR workup per cardio
Assessment / Plan
Assessment / Plan
Acute on chronic heart failure with reduced ejection fraction, EF 25-30%
Cardiomyopathy, mixed without improved ejection fraction despite optimal medical therapy
Cardiogenic shock
s/p bio AVR
s/p Medtronic biventricular ICD 07/07/2024
- BNP 17,500 at admission
- s/p RHC with Severely elevated right and left-sided filling pressures with severe pulmonary hypertension and severely reduced cardiac output (cardiac index .96) in the setting of elevated systemic vascular resistance. Wedge 35.
- s/p swan Pradeep cath placement 08/22
- s/p Milrinone drip and now on dobutamine
- sodium/fluid restriction
- On hydralazine/Imdur for afterload reduction
- Remains on Lasix/dobutamine drip
- await CTS team for evaluation of TAVR
JAI on CKD stage 3b, acute cardiorenal state
Hypervolemic Hyponatremia
- Na has trended down to 128 today,
- Nephrology following
Ascites
Cirrhosis
-Liver morphology showing changes of cirrhosis on CT chest July
-Patient underwent paracentesis of 3.2 L acetic fluid, SAAG elevated and suggestive of HF related ascites.
-SHRUTI/Mitochondrial M2/F-actin/HIT
-GI following and test sent to check for etiology of cirrhosis
JAMES not using CPAP at home
- continue nocturnal BIPAP
- Pum following
Hypokalemia, replete as needed
LBBB
Hx NSVT
- s/p Medtronic biventricular ICD 07/07/2024
History of atrial fibrillation s/p cv 07/23/2023
- continue Amiodarone
- IV Heparin drip requires intensive monitoring of PTTs; holding Eliquis in case additional support procedures needed for advanced CHF
History of COVID September 2021
HTN
- Aldactone/BB held. on Hydralazine with Cardiology titrating
HLD
- continue statin
DM2
- hold Jardiance
- continue SSI
- A1c: 7.2% recently
CAD s/p 1 vessel CABG 2009
- continue ASA/Statin
s/p Bio-AVR 2009
H/o Cough syncope
Radiculopathy
Depression - on Zoloft
Ocular migraines
Renal calculi
Arthritis
DVT ppx: IV Heparin
Code: Full code after re-discussed with daughter
Care plan discussed with nephrology/gastroenterology
Total critical care time 38 mins . Total critical care time documented does not include time spent on separately billed procedures or the services of residents, students, nurses or physician assistants. I personally saw and examined the patient. I
have reviewed all diagnostic interpretations and treatment plans as written. I was present for the salcedo portions of any procedures performed and the inclusive time noted in any critical care statement. Critical care time includes patient management
by me, time spent at the patients bedside, time to review lab and imaging results, discussing patient care, documentation in the medical record, and time spent with the family or caregiver.
Anticipated Discharge: > 48 hours
Subjective/Interval History
-
Date of Service: August 30, 2024
Resting comfortably in bed
Denies of having any significant dyspnea
No episode of chest discomfort/palpitation
Remains on dobutamine/Lasix drip
Objective Data
-
Labs:
Laboratory Results
08/30/24
03:51
WBC 9.8
Hgb 12.6 L
Hct 37.9 L
Plt Count 85 L
PT 16.7 H
INR 1.32
APTT 74.9 H
Sodium 128 L
Potassium 3.6
Chloride 89 L
Carbon Dioxide 26
BUN 68 H
Creatinine 2.5 H
Glucose 138 H
Calcium 8.3 L
Vital Signs:
Vital Signs
Temp Pulse Resp BP Pulse Ox
98.4 F 95 16 95/63 94
08/30/24 10:59 08/30/24 08:13 08/30/24 08:05 08/30/24 08:13 08/30/24 08:05
I&O
08/29/24 08/30/24 08/31/24
06:59 06:59 06:59
Intake Total 1792.8 / 1835.5 1655.8 / 1697.5 658.5 / 658.5
Output Total 1105 / 1155 1410 / 1460 235 / 235
Balance 687.8 / 680.5 245.8 / 237.5 423.5 / 423.5
Review of Systems
-
Respiratory: Reports No Symptoms
Cardiac: Reports No Symptoms
Abdomen/GI: Reports No Symptoms
Physical Exam
-
General: No Apparent Distress and Obese
HEENT: Negative Oxygen
Respiratory: Clear to Auscultation
Cardiac: Regular Rhythm and S1/S2; Negative Murmur
GI: Soft, Nontender, Nondistended and Normal Bowel Sounds
Musculoskeletal: Edema, Right Lower Extrem and Edema, Left Lower Extrem
Neuro: Awake, Alert and Oriented
[2024-08-30] MEDS: ATIVAN 0.5 MG PO ×2 (12:12→21:14)
[2024-08-30] MEDS: NOVOLOG FLEXPEN-HIGH RESISTANCE 2 UNITS SC ×2 (12:15→16:25)
[2024-08-30 12:29] LABS: Glucose - Point of Care 165 mg/dl (70-99)
[2024-08-30 13:12] LABS: Magnesium 2.2 mg/dl (1.6-2.3)
[2024-08-30 14:20] VITALS: BP 85/62
--- NOTE | 2024-08-30 14:30 | PTCARENOTE ---
took patient to CT scan for TAVR and for head CT. Patient has been having increasing confusion and full body twitching. Patient is hallucinating with periods of lucidity. Was reaching towards neeraj, attempting to pull of leads, stating the ceiling
was 'coming down'
--- NOTE | 2024-08-30 15:40 | W.PN.INTV ---
Today's Communication / Plan
Recommendations
Lasix 120 mg twice daily
Continue dobutamine infusion
Consider hemodialysis given the hallucinations/uremia
Assessment
-
Impression
Mr Carrera is a 74-year-old male with a history of hypertension, hyperlipidemia, CAD/CABG, diabetes, atrial fibrillation and JAMES/CPAP intolerant , AICD in place with subsequent worsening shortness of breath ,underwent elective right heart
catheterization that showed severely elevated filling pressures with low cardiac index necessitating pulmonary artery catheter placement.
His active issues are worsening creatinine/moderate ascites secondary to CHF/worsening heart function
Assessment
#Hallucinations
Acute on chronic with reduced EF(15-20%)
Paroxysmal Atrial fibrillation
Cardiogenic shock
Obstructive sleep apnea
Worsening renal function/JAI secondary to cardiorenal syndrome
Hyperglycemia
Low platelet count
Anxiety
Nodularity of liver
# Hallucinations
Patient having auditory and visual hallucinations most likely secondary to uremia
Head CT normal without any acute pathology
Consider dialysis?
#Acute on chronic with reduced EF(15-20%)
Extensive cardiac history including a CABG/AICD placed in 06/2024 and paroxysmal atrial fibrillation
Cardiology consult appreciated -Cardiomyopathy-EF 20%-no improvement despite optimal medical therapy-although weight down by 5 pounds in past 24 hours
Serum creatinine has worsened-Patient shifted to 120 mg Lasix boluses twice daily by nephrology
Patient has heart failure related ascites
Continue dobutamine and awaiting TAVR team evaluation to help patient guide about future goals of care
#Paroxysmal Atrial fibrillation
Continue heparin infusion as 4ts score, show low probability of HIT
Platelet count improving
Continue oral amiodarone for heart rate control
#CARDIOGENIC SHOCK
Secondary to atrial fibrillation and reduced LVEF
Patient is still on dobutamine infusion at 7.5 mcg/h
#JAMES
Refusing Bipap at night
VBGs(08/28/24)show Ph of7.5 and carbon dioxide of 34
#Worsening renal function/JAI secondary to cardiorenal syndrome
Patient's serum creatinine is worsening and is up to 2.5 now
Nephro change Lasix to twice daily
Patient agreeable to TAVR evaluation and even agreeable to temporary hemodialysis if needed based on prognosis
#Hyperglycemia
Patient has blood sugar readings
HbA1c 7.2,07/14/2024
Insulin resistance on sliding scale changed to high
Lantus 15 units added at night,continue to monitor and titrate up as needed
Monitor blood sugar levels
#Low Platelet count
Abdominal ultrasound showed mild abdominopelvic ascites 08/22/2024
FINDINGS: There is mild abdominopelvic ascites. The largest pocket is in the lateral left lower quadrant.
There is a moderate right pleural effusion.
Elevated liver enzymes
On heparin infusion for 4T-score showed low probability, HIT panel pending, platelet count improving, can continue heparin infusion
Dilutional?
GI evaluation was done, given normal albumin, normal platelet, normal spleen cirrhosis unlikely, but at the same time the CT showed mild nodularity of liver and patient has history of heavy alcohol use, paracentesis was done today by IR, 3.2 L of
fluid drained, increased protein in fluid suggestive of ascites secondary to congestive heart failure
Continue to monitor
#ANXIETY
Continue zoloft
Ativan as needed
Patient feeling better
Full code
Subjective Dataa
Subjective Data
Date of Service:
Date of Service: August 30, 2024
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
Subjective:
Patient condition static, looks clinically less in volume overload but the creatinine is worsening and the patient is now having hallucinations possibly related to uremia
Review of Systems
General: Other (Reviewed and negative)
Objective Data
Data Reviewed
Vital Signs / I&O / Oxygen:
Vital Signs
Temp Pulse Resp BP Pulse Ox
98.4 F 95 18 95/63 95
08/30/24 10:59 08/30/24 13:52 08/30/24 13:52 08/30/24 08:13 08/30/24 13:52
Intake and Output
08/29/24 08/30/24 08/31/24
06:59 06:59 06:59
Intake Total 1792.8 / 1835.5 1655.8 / 1697.5 777.6 / 777.6
Output Total 1105 / 1155 1410 / 1460 285 / 285
Balance 687.8 / 680.5 245.8 / 237.5 492.6 / 492.6
SaO2 95
Nasal Cannula flow liters per 2
minute
Physical Exam
General: Comfortable and Other (Morbidly obese, well-developed and nourished, conversant)
HEENT: Normocephalic, Anicteric and Other (thick neck, breathing on room air)
Cardiovascular: S1-S2, Regular Rhythm, Murmur (Soft systolic murmur in the upper sternal border), Peripheral Edema (+2 lower extremity pitting edema bilaterally) and Other (Tachycardia)
Respiratory: Clear and Non-Labored Respirations
GI: Soft, Non Tender and Normal Bowel Sounds
Neurology: Awake, Oriented, Other (New muscular twitches) and Other (Hallucinating and having both visual and auditory hallucinations)
Skin: Warm and Dry
Labs/Micro/Reports
Lab Data
08/30/24 03:51
08/30/24 03:51
Laboratory Results
08/30/24
03:51
PT 16.7 H
INR 1.32
APTT 74.9 H
Microbiology
08/29/24 08:28 Peritoneal Fluid Body Fluid Culture - Preliminary
No Growth After 18-24 Hours
08/29/24 08:28 Peritoneal Fluid Gram Stain - Preliminary
[2024-08-30 15:58] VITALS: BP 87/69
[2024-08-30 15:58] LABS: HCO3 27.1 mmol/L (21-28); O2 Saturation % 99.4 % (94-98); PCO2 39 mmHg (35-48); PO2 143 mmHg (83-108); pH 7.45 (7.35-7.45)
--- NOTE | 2024-08-30 16:00 | PTCARENOTE ---
Notified renal, cardiology, hospitalist and Dr. Obrien of patient's continuing confusion. ABG obtained, family present at bedside. awaiting further orders.
[2024-08-30] MEDS: LASIX 120 MG IV (16:09)
--- NOTE | 2024-08-30 16:33 | CM ---
manager strategic reviewed patient's chart and spoke with admissions at [facility] and she will review chart for acute rehab at [facility].
Plan; Possible acute rehab placement at [facility].
[2024-08-30 16:36] LABS: Glucose - Point of Care 198 mg/dl (70-99)
[2024-08-30] MEDS: CRESTOR PO (17:53)
[2024-08-30] MEDS: NICODERM TRANSDERMAL 14 MG TRANSDERM (18:03)
[2024-08-30 18:52] LABS: F-Actin Antibody IgG 18 Units (0-19); Mitochondrial M2 Ab, IgG 3.9 Units (0.0-24.9)
--- NOTE | 2024-08-30 20:00 | PTCARENOTE ---
assessment consultant, pt lethargic/restless, arousable to voice, oriented to self, hallucinating. VPaced HR 90s. R rad AL, RW IV, RIJ cordis WNL- Heparin gtt/Dobutamine gtt infusing per work list. Valdovinos draining adequate amt aylin urine. pt family at
bedside.
[2024-08-30] MEDS: APRESOLINE PO (20:58)
[2024-08-30] MEDS: ZOLOFT PO (20:59)
[2024-08-30] MEDS: NOVOLOG FLEXPEN-HIGH RESISTANCE 1 UNITS SC (21:12)
[2024-08-30] MEDS: XALATAN OPHTHALMIC SOLUTION 1 DROP RIGHT EYE (21:13)
[2024-08-30] MEDS: LANTUS 0.15 UNITS SC (21:13)
[2024-08-30] MEDS: MELATONIN 10 MG PO (21:14)
[2024-08-30 21:21] LABS: Glucose - Point of Care 137 mg/dl (70-99)
[2024-08-30 21:46] LABS: ANA, IgG Reflex to HEp-2 None Detected (None Detected)
[2024-08-30] MEDS: DESENEX/MITRAZOL/ZEASORB TOPICAL (22:55)
--- NOTE | 2024-08-31 01:00 | PTCARENOTE ---
pt restless t/o night, BDoughertyNP at bedside multiple times to discuss POC with /dtr, EKG done to assess QTc for possible Seroquel order. unable to order per CONSULTANT. family aware.
--- NOTE | 2024-08-31 01:29 | W.PN.UPDATE ---
Addendum entered and electronically signed by MALA Mark 08/31/24 03:56:
Patient now becoming more dangerous agitated, will administer 5mg of IM olanzapine.
Original Note:
Update Note
Progress Note Update
Overnight concern for increase delirium and insomnia. �Discussed situation with Dr. Cueto:�
Wanted to avoid precedex due cardiovascular instability. ��
Plan to trial Seroquel however, QTC was 530ms, (Bazett QTc Value) and could not be giving, limiting a lot of sleep agents.�
Trial melatonin and Tylenol.�
[2024-08-31] MEDS: OFIRMEV 100 IV (02:05)
[2024-08-31 02:41] LABS: APTT 90.3 Sec (23.4-35.0)
[2024-08-31 02:56] LABS: Hematocrit 38.1 % (39.0-52.0); Hemoglobin 12.8 g/dL (13.0-18.0); Mean Corp Hgb Conc. 33.6 g/dL (33.0-37.0); Mean Corpuscular Hgb 29.1 pg (27.0-31.0); Mean Corpuscular Volume 86.6 fL (80.0-94.0); Mean Platelet Volume 12.2 fL (7.4-10.4); Platelet Count 88 10^3/uL (130-400); Red Cell Dist. Width 15.6 % (11.5-14.5); White Blood Cell Count 9.5 10^3/uL (4.8-10.8)
[2024-08-31 02:57] LABS: Blood Urea Nitrogen 70 mg/dl (9-20); Carbon Dioxide 26 mmol/L (22-30); Chloride 89 mmol/L (98-107); Estimated Creatinine Clearance 34 ml/min; Glucose 140 mg/dl (70-99); Magnesium 2.3 mg/dl (1.6-2.3); Potassium 3.9 mmol/L (3.5-5.1); Sodium 127 mmol/L (135-145); eGFR 24.78
[2024-08-31] MEDS: ZYPREXA 5 MG IM (04:17)
--- NOTE | 2024-08-31 04:20 | PTCARENOTE ---
increased agitation, uncooperative, attempts to get OOB, hallucinating. 5mg IM Zyprexa x 1 given per BDoughertyNP.
[2024-08-31] MEDS: HEPARIN 25000 UNITS/250 ML IV ×2 (04:43→23:37)
[2024-08-31] MEDS: DOBUTREX 500 MG 250 IV ×3 (04:44→23:37)
[2024-08-31 05:39] VITALS: BMI 37.1
[2024-08-31] MEDS: ATROVENT NEBULES INH (07:11)
[2024-08-31] MEDS: SYMBICORT 160/4.5 MCG INHALER INH (07:11)
[2024-08-31] MEDS: XOPENEX 1.25 MG INHALANT SOLUTION INH ×4 (07:11→19:27)
--- NOTE | 2024-08-31 08:00 | PTCARENOTE ---
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 Patient's family has been with patient all night. patient was delirious, attempting to climb out of bed, but is more lucid this morning. He is moving all extremities, generally very weak. He remains on room
air, with crackles and expiratory wheeze throughout. He remains Vpaced, on dobutatmine and heparin gtt. +2 edema throughout lower extremities. Abdomen is softly distended, obese, has had no appetite, would just like coffee. Valdovinos catheter has
aylin urine. not much response to lasix diuresis. right radial chino leveled at phlebostatic axis. all connections secured. Will review orders, assessment as charted. awaiting rounds for plan of care.
--- NOTE | 2024-08-31 08:20 | W.PN.INTV ---
Today's Communication / Plan
Recommendations
Defer to cardiology regarding his candidacy for TAVR
As yesterday morning progressed he became more confused and was hallucinating and having jerking movements, seems related to uremia
CT head negative for acute pathology
Trend UOP and sCr
Dialysis brought up and he is leaning towards going home with palliative versus hospice, especially if cardiology does not feel that he is a candidate for TAVR --> consult hospice and palliative care so they can speak to the pt and family about
options
May need to go home on milrinone as there is a high chance he will not be able to survive off dobutamine
Strict I/O
Aspiration precautions
Up OOB as tolerated
Follow-up paracentesis cultures from 08/29 (TD)
PT/OT
Keep K>4, Mg>2
Guarded prognosis
He is now DNR/DNI (see event note from today � 08/31/2024)
Retail Leader services will continue to follow along while he remains in ICU
Assessment
-
74-year-old obese occasional cigar smoking male with a history of hypertension, hyperlipidemia, CAD/CABG, diabetes, atrial fibrillation and JAMES/CPAP intolerant recently had AICD placed with subsequent history of difficult to control CHF underwent
elective right heart catheterization noted to have severely elevated filling pressures with low cardiac index necessitating ICU/pulmonary artery catheter/inotropes-credit underwriter consulted for CHF/critical care management 08/22/2024.
Impression:
CHF-acute on top of chronic with reduced EF
Cardiomyopathy status post recent biventricular ICD 07/07/2024
JAI with suspected cardiorenal syndrome
Abnormal CT chest on 08/30/2024 with concern for multifocal pneumonia with bronchial wall thickening seen in the right lower lobe
Hyperglycemia
Hypocalcemia � now resolved
Elevated LFTs
Right sided pleural effusion likely due to cirrhosis with a hepatohydrothorax
Obesity
History of heavy alcohol use
Cardiac ascites s/p paracentesis on 08/29/2024 removing 3200 cc of exudative fluid
Conditions present prior to admission:
Hypertension.
Hyperlipidemia.
Diabetes.
CAD/CABG/AVR.
Cardiomyopathy-EF 20%
ICD June 2025.
JAMES/CPAP intolerant.
Atrial fibrillation on Eliquis.
Abnormal CT abdomen-suggestive of cirrhosis 07/2024
Varicocele repair. Lumbar discectomy 2021. Repair ascending aortic aneurysm/AVR-bovine.
Plan
Patient critically ill and admitted to ICU to obtain pulmonary artery catheter, inotropes, diuresis-extensive cardiac and pulmonary workup summarized below
- He remains on dobutamine gtt and lasix gtt changed to intermittent dosing on 08/30 (lasix drip was started 08/27/2024)
- Douglas-Pradeep removed on 08/26/2024
Supplemental oxygen as needed to keep SpO2 >90%
Incentive spirometry q1hr while awake
CPAP or BiPAP at night as tolerated-in the past has been intolerant-willing to use --> did not tolerate BiPAP overnight 08/25 - 08/26/2024, and refused again last night and the night before --> now DC'd
- Blood gas on AM of 08/28 showed metabolic alkalosis with appropriate respiratory compensation --> ABG rechecked on 08/30/2024 when he was becoming delirious/hallucinating, and pCO2 was normal at 39 with pH 7.45
Aspiration precautions
Given COPD seen on outpatient PFT on 11/29/2023 with normalization of DLco, Symbicort started as well as ipratropium + Xopenex; there is concern for unremitting asthma as cause of COPD
Nebulizers if needed-currently not bronchospastic
s/p prednisone taper (completed on 08/24/2024) - was not for pulmonary-had rash possibly Bumex related as an outpatient
Cardiology following-correspondence reviewed
Right heart catheterization results reviewed-significantly elevated filling pressures with low cardiac index-RHC 08/21/24: RA 30, PA 63/38, PCWP 35-42, CO/CI 2.3/0.96, SVR 1880, PVR: 6.85 FARRAR
Pulmonary artery catheter placement-08/22/2024-improvement in cardiac index, PCWP, RA-pressure, SVR + PVR
PAC was removed on 08/26/2024 after it malpositioned (Douglas-Pradeep was accidentally withdrawn somehow by the patient)
Continue diuresis as tolerated-intensified per nephrology - now off lasix gtt and on intermittent lasix dosing since 08/30
Inotropes continue-currently on dobutamine s/p milrinone
Monitor renal function, electrolytes, intake/output, lower extremity edema and weight
Replace electrolytes as needed
PO amiodarone continues as well
Heparin drip continues-Eliquis on hold--eventual change back
SOFIYA panel negative
Eventually start GDMT (hydralazine on for afterload reduction)
CT TAVR checked on showing scattered bilateral groundglass + patchy opacities with highly suspected multifocal pneumonia with report of hepatic cirrhosis
- Cardiology TAVR team still evaluating if he is a candidate for TAVR --> given his worsening creatinine and now with a downtrending sodium, as well as his new pneumonia, patient is leaning towards going home on hospice, however he may not make it
off dobutamine so trying to see if he can go home on milrinone if possible
Monitor renal function
Replace electrolytes
Acute cardiorenal state
Nephrology following-correspondence reviewed
He continues to have episodes of altered mental status, with no urinary incontinence, tongue biting or tonic�clonic movements - continue to monitor
Monitor ascites-not enough fluid for diagnostic or therapeutic paracentesis per abdominal ultrasound on 08/22/2024 --> he went down for paracentesis on 08/29 and 3.2 L of clear, dark aylin-colored exudative fluid was removed (SAAG: >1.1, protein >2.5
indicating cardiac ascites)
Abdominal ultrasound summarized below
Trend LFTs
Liver appeared normal on recent abdominal ultrasound on 08/01/2024, hence doubtful he has cirrhosis despite CT chest on 07/31/2024 showing nodular external surface of liver concerning for cirrhosis
Monitor MSAS-no signs of withdrawal
Alcohol withdrawal treatment protocol if indicated
Ativan as needed - not currently indicated
Monitor blood sugar with goal 140-180
Insulin supplementation as needed with basal�bolus SQ insulin dose
Last saw Dr. Mars/Gabrielle Macario CNP on 11/29/[address] Mars reviewed with as well as daughter at the bedside 08/22/2024, 08/23/2024, 08/24/2024, 08/25/[address] Obrien answered all the family's questions at bedside in layman's terms to their satisfaction
Critical care statement: A total of 41 minutes of critical care time was provided for this patient today. This includes management of unstable vital signs, evaluation of the patient at bedside, reviewing the patient's pertinent medical records
including radiographs, pressor and inotrope management, diuresis management, microbiology, laboratory evaluations, and discussion with primary team, consultants, pharmacy, nutrition, physical therapy, case management, charge nurse, critical care
nursing, and respiratory therapy.
Diagnostic data:
CXR 10/01/21: cardiomegaly with slightly prominent pulmonary vascularity which could represent mild CHF vs atypical acute pulmonary edema. possible left basilar patchy opacity such as pna������
��
Chest x-ray 12/10/21-NAD
Chest x-ray 08/22/2024-no acute disease in the chest, cardiomegaly, waterbed configuration
CT Chest 09/29/21: no PE. small bilateral pleural effusions. mild peripheral ground glass densities in lower lung zones b/l suggesting mild residual pna.��
CT chest 07/11/23-no pulmonary embolism, minimal right pleural effusion, minimal pleural thickening left hemithorrax, no adenopathy or nodules.
CT chest 07/31/2024-small right pleural effusion, moderate ascites, liver contour appears to be subtly nodular suggestive of cirrhosis, basilar atelectasis
Abdominal ultrasound 08/22/2024 - mild abdominal pelvic ascites, slightly progressed. Moderate right pleural effusion.
US BLE 10/01/21: negative for DVT������������������
ECHO 08/11/21: ischemic heart disease with mildly reduced systolic function. LV EF 40-45%. moderate LVH. RV base mildly enlarged. Tricuspid and mitral regurgitation. s/p bioprosthetic aortic valve prosthesis.�������
Nuclear stress test 06/12/21-EF 25%, moderate risk study�������
Echocardiogram 06/28/23-EF 20-25%, stage II diastolic dysfunction, bioprosthetic aortic valve, PA systolic 45, rhythm atrial fibrillation�������
Stress test 07/13/23-revealed a moderate in size, medium severity fixed basal to distal inferior and inferoseptal perfusion defect, EF 21%, overall high risk study.�������
Echo 02/16/2024: EF 25%. Global hypokinesis with basal inferior and basal inferolateral akinesis. Stage III diastolic dysfunction. Moderate to severe MR. Severely dilated left atrium. #23 bovine aortic valve with peak/mean gradient 46/29 mmHg.
Mild AI. Mild TR. PAP 35 mmHg
Echo 07/14/2024: EF 25-30% with global hypo, enlarged RV, ICD in place well seated #23 bovine AVR with peak/mean grad of 27/19 mmHg respectively, trace pericardial effusion.
Echo 08/21/24: EF 15-20%, AVR with mean gr 30, PA 30
Cardioversion 07/23/23-successful cardioversion from atrial fibrillation to sinus rhythm.
Cardiac catheterization 03/28/2024: LM: LI. LAD: Moderate to severe diffuse atherosclerotic plaque. D2 has 30% stenosis. Left circumflex: Mid 60 to 70% stenosis. RCA: LI.
HEMODYNAMICS : (mmHg) RA (m) : 22; RV (s/d,m) : 72/14, 24; PA (s/d, m) : 72/34, 50; PCWP (m) : 34, V waves to 53 mmHg; PA saturation: 62.5% on room air; AO saturation: 93.6% on room air;
Cardiac Output : 5.58 L/min; Cardiac Index : 2.23 L/min/m-2; Systemic vascular resistance: 889 dsc^(-5); Pulmonary vascular resistance: 2.87 willams unit; AO (s/d) : 102/61; LV (s/d) : 131/21; LVEDP : 30
Estimated invasive transaortic gradient of 27 mmHg, aortic valve area 1.3 cm�
Significantly elevated right and left-sided filling pressures with severe pulmonary hypertension and normal cardiac output. Borderline low systemic vascular resistance.
PFT 12/19/21-FEV1 2.55-72%, FVC 3.77 L-70%, no significant response, TLC 80%, 90%, DLCO 64%. Mild obstruction and moderate reduction in diffusing capacity.�������
Spirometry 07/29/23-FEV1 1.18-34%, FVC 1.5-39%, no significant BD response. Severe obstruction.
Subjective Dataa
Subjective Data
Date of Service:
Date of Service: August 31, 2024
Chief Complaint: Retail Leader Follow Up and Pulmonary Follow Up
Subjective:
Patient seen and evaluated this morning. Became confused yesterday evening with hallucinations although he was redirectable. This morning, heart rate 96 and saturating 98% on room air with BP 110/54. Remains on dobutamine at 7.5mcg/kg/min.
Tremors have improved. Family members at bedside and all questions were answered. He is not sure if he wants to start dialysis and thinks that he may just want to go home and enroll in hospice at that time.
Review of Systems
General: Other (Negative unless mentioned above)
Objective Data
Data Reviewed
Vital Signs / I&O / Oxygen:
Vital Signs
Temp Pulse Resp BP Pulse Ox
97.7 F 97 20 101/60 95
08/31/24 08:40 08/31/24 08:42 08/31/24 06:00 08/31/24 08:42 08/31/24 04:30
Intake and Output
08/30/24 08/31/24 09/01/24
06:59 06:59 06:59
Intake Total 1655.8 / 1697.5 1853.1 / 1892.8 79.4 / 79.4
Output Total 1410 / 1460 1060 / 1060 135 / 135
Balance 245.8 / 237.5 793.1 / 832.8 -55.6 / -55.6
SaO2 95
Nasal Cannula flow liters per 2
minute
Physical Exam
General: Comfortable and Other (Morbidly obese, well-developed and nourished, conversant)
HEENT: Normocephalic, Anicteric and Other (thick neck)
Cardiovascular: S1-S2, Murmur (CM heard across precordium) and Peripheral Edema (+2 lower extremity pitting edema bilaterally)
Respiratory: Wheeze (negative), Crackles (Bibasilar), Rhonchi (negative), Non-Labored Respirations and Stridor (negative)
GI: Soft, Distended (Abdominal obesity), Non Tender and Normal Bowel Sounds
Neurology: Awake and Tremors (Occasionally although improved)
Skin: Warm, Dry, Cyanosis (negative) and Jaundice (negative)
Labs/Micro/Reports
Lab Data
08/31/24 02:19
08/31/24 02:19
Laboratory Results
08/30/24 08/31/24
15:49 02:19
APTT 90.3 H
pH 7.45
pCO2 39
pO2 143 H
HCO3 27.1
O2 Delivery Level
Microbiology
08/29/24 08:28 Peritoneal Fluid Body Fluid Culture - Preliminary
No Growth After 18-24 Hours
08/29/24 08:28 Peritoneal Fluid Gram Stain - Preliminary
--- NOTE | 2024-08-31 08:33 | W.PN.CARDCBS ---
Today's Communication / Plan
-
Now with multilobar PNA
His weight continues to come down (277) and is down another 3 lbs last 24 hours and over 10 pounds over the past 72 hours.
He does not appear to be at his dry wt.
Renal function slightly worsened with creatinine of 2.6
Continue Dobutamine for now given CM and .
Nephrology is managing diuretic therapy and pt is now off IV Lasix gtt and on lasix 120 mg IV BID.
Paracentesis of 3.3L was consistent with right heart failure.
GI does not feel ascites consistent with cirrhosis
Hep B/ C negative 08/01/24. Ferritin normal. Autoimmune markers negative
Recommend MRI abdomen/elastography or FibroScan as outpatient as further evaluation for liver cirrhosis
TAVR eval ongoing and received noncontrast CT to assess. Renal function remains a significant obstacle.
Pt and family understand HD risk associated with IV contrast.
last left heart cath Mar 2024.
Platelets remain low but are stable at 88.
HIT panel is pending
Change in mental status unclear but pt now has PNA
Status remains tenuous.
Impression / Plan
-
.
PCP: Dr. Chintan Gonzalez
Cardiology: Dr. Gabriel, fdc pt
Impression
Acute on chronic HFrEF with cardiogenic shock
JAI
Cardiomyopathy, mixed without improved ejection fraction despite optimal medical therapy
Change in mental status
PNA
s/p [employer] biventricular ICD 07/07/2024
LBBB
CAD
s/p bio AVR 2009Paroxysmal atrial fibrillation
s/p cv 07/23/2023 Chronic AC w/ Eliquish/o NSVT
h/o COVID September 2021
HTN
HLD
DM2
JAMES not using CPAP
h/o cough syncope
Radiculopathy
Depression
Ocular migraines
Renal calculi
Arthritis
Lexiscan sestamibi stress test 07/13/2023: Moderate sized medium in severity fixed basal to distal inferior, basal to mid inferoseptal, small mid anterior perfusion defect with no evidence of ischemia. Ejection fraction 21% with severe global
hypokinesis
Cardiac catheterization 03/28/2024: LM: LI. LAD: Moderate to severe diffuse atherosclerotic plaque. D2 has 30% stenosis. Left circumflex: Mid 60 to 70% stenosis. RCA: LI.
HEMODYNAMICS : (mmHg) RA (m) : 22; RV (s/d,m) : 72/14, 24; PA (s/d, m) : 72/34, 50; PCWP (m) : 34, V waves to 53 mmHg; PA saturation: 62.5% on room air; AO saturation: 93.6% on room air;
Cardiac Output : 5.58 L/min; Cardiac Index : 2.23 L/min/m-2; Systemic vascular resistance: 889 dsc^(-5); Pulmonary vascular resistance: 2.87 willams unit; AO (s/d) : 102/61; LV (s/d) : 131/21; LVEDP : 30
Estimated invasive transaortic gradient of 27 mmHg, aortic valve area 1.3 cm�
Significantly elevated right and left-sided filling pressures with severe pulmonary hypertension and normal cardiac output. Borderline low systemic vascular resistance.
RHC 08/21/24: RA 30, PA 63/38, PCWP 35-42, CO/CI 2.3/0.96, SVR 1880
RHC 08/23/24: RA 15, PA 65/28, PCWP 27, CO/CI 4.47/1.75, PA sat 65.6%, SVR 1432, PVR 3.81
Echo 01/2022: Ejection fraction 40%, global hypokinesis, status post AVR with mean gradient of 10 mmHg
Echo 06/28/2023: Dilated right ventricle with ejection fraction of 20 to 25%, status post bioprosthetic AVR with mean gradient of 15 mmHg, dilated right heart with PA systolic of 45 mmHg
Echo 08/03/2023: Ejection fraction 25 to 30%, hypokinetic septum, apex, inferior, anterior and distal lateral pelletier, mild concentric LVH, moderate MR, status post bioprosthetic AVR with mean gradient of 13 mm hG
Echo 02/16/2024: EF 25%. Global hypokinesis with basal inferior and basal inferolateral akinesis. Stage III diastolic dysfunction. Moderate to severe MR. Severely dilated left atrium. #23 bovine aortic valve with peak/mean gradient 46/29 mmHg.
Mild AI. Mild TR. PAP 35 mmHg
Echo 07/14/2024: EF 25-30% with global hypo, enlarged RV, ICD in place well seated #23 bovine AVR with peak/mean grad of 27/19 mmHg respectively, trace pericardial effusion.
Echo 08/21/24: EF 15-20%, AVR with mean gr 30, PA 30
Plan:
Now with multilobar PNA
His weight continues to come down (277) and is down another 3 lbs last 24 hours and over 10 pounds over the past 72 hours.
He does not appear to be at his dry wt.
Renal function slightly worsened with creatinine of 2.6
Continue Dobutamine for now given CM and .
Nephrology is managing diuretic therapy and pt is now off IV Lasix gtt and on lasix 120 mg IV BID.
Paracentesis of 3.3L was consistent with right heart failure.
GI does not feel ascites consistent with cirrhosis
Hep B/ C negative 08/01/24. Ferritin normal. Autoimmune markers negative
Recommend MRI abdomen/elastography or FibroScan as outpatient as further evaluation for liver cirrhosis
TAVR eval ongoing and received noncontrast CT to assess. Renal function remains a significant obstacle.
Pt and family understand HD risk associated with IV contrast.
last left heart cath Mar 2024.
Platelets remain low but are stable at 88.
HIT panel is pending
Change in mental status unclear but pt now has PNA
Status remains tenuous.
Discussed with family members at bedside, Loan Workout Officer, GI and Nursing.
CCT: [address] Gabriel note 08/30/2024: Had a discussion with Eron and his Jane at the bedside. He is feeling much better after paracentesis. 3.2 L of ascites drained yesterday with cytology and lab studies pending. Big picture discussion with patient
and regarding goals of care. He wants to at least pursue the workup for a transcatheter valve and is even willing to consider temporary dialysis if he is able to achieve a better quality of life. In my mind alternative would be home inotrope
plus or minus continuation of ICD therapies. He was sitting in the chair for 6 hours yesterday and symptomatically feels much better on inotrope he. Ongoing discussions and coordination with the TAVR team. Please see separate Dr. Beatty note for
full detail. I have seen Eron in the office for approximately 15 years and was pending a visit to discuss options and goals of care.
Clinical summary: 74-year-old man with history of heavy alcohol use, abstinent for 18 months, H/O Obesity, HTN, HLD, T2DM, Afib on eliquis, Hx of LBBB, hx of BioAVR and 1 vessel CABG, JAMES not compliance on CPAP, s/p ICD presents to woods laborer for
elective RHC. . He was previously on Lasix, later trialed on Bumex (developed rash) and now is on Torsemide.
RHC on 08/21/24 finds markedly elevated filling pressures with pulmonary capillary wedge pressure of 35 and severely depressed cardiac index of 1 with cardiac output of 2.34.
RHC on 08/22/[address] SG catheter and demonstrated elevated filling pressures with pulmonary capillary wedge pressure of 27, elevated pulmonary pressures of 65/28, cardiogenic shock with cardiac index of 1.75
Progress Note - Examining Officer
Subjective
Date of Service: August 31, 2024
Pt seen and examined. No chest pain. Some confusion overnight
Objective
Labs:
08/31/24 02:19
08/31/24 02:19
Labs
Hgb 12.8 g/dL (13.0-18.0) L 08/31/24 02:19
Hct 38.1 % (39.0-52.0) L 08/31/24 02:19
Plt Count 88 10^3/uL (130-400) L 08/31/24 02:19
PT 16.7 Sec (11.4-14.6) H 08/30/24 03:51
INR 1.32 08/30/24 03:51
APTT 90.3 Sec (23.4-35.0) H 08/31/24 02:19
Sodium 127 mmol/L (135-145) L 08/31/24 02:19
Potassium 3.9 mmol/L (3.5-5.1) 08/31/24 02:19
BUN 70 mg/dl (9-20) H 08/31/24 02:19
Creatinine 2.6 mg/dL (0.7-1.3) H 08/31/24 02:19
Glucose 140 mg/dl (70-99) H 08/31/24 02:19
Vital Signs and I&O:
Vital Signs
Temp Pulse Resp BP Pulse Ox
97.5 F 97 20 91/53 95
08/31/24 04:30 08/31/24 06:00 08/31/24 06:00 08/30/24 16:11 08/31/24 04:30
Vital Signs
Temp Pulse Resp BP Pulse Ox
97.5 F 97 20 91/53 95
08/31/24 04:30 08/31/24 06:00 08/31/24 06:00 08/30/24 16:11 08/31/24 04:30
Intake & Output
08/29/24 08/30/24 08/31/24 09/01/24
06:59 06:59 06:59 06:59
Intake Total 1792.8 / 1835.5 1655.8 / 1697.5 1853.1 / 1892.8 79.4 / 79.4
Output Total 1105 / 1155 1410 / 1460 1060 / 1060 135 / 135
Balance 687.8 / 680.5 245.8 / 237.5 793.1 / 832.8 -55.6 / -55.6
Physical Exam
Physical Exam
General: No acute distress, awake and alert
Neck: Negative JVD
Heart: Regular, Negative S3 positive S1/S2, Negative S4, CM grade II/
Lungs: Negative wheezes/rales/rhonchi
Abd: Positive BS, NT/ND, neg rebound/rigidity/guarding
Ext: Negative cyanosis/clubbing/edema
Neuro: nonfocal
[2024-08-31] MEDS: APRESOLINE 37.5 MG PO ×2 (08:41→17:24)
[2024-08-31] MEDS: ASPIR LOW (ENTERIC COATED) 81 MG PO (08:42)
[2024-08-31] MEDS: PACERONE 200 MG PO (08:42)
[2024-08-31] MEDS: MIRALAX PO (08:42)
[2024-08-31] MEDS: LASIX 120 MG IV ×2 (08:42→15:59)
[2024-08-31] MEDS: IMDUR (EXTENDED RELEASE) 30 MG PO (08:42)
[2024-08-31] MEDS: NICODERM TRANSDERMAL 14 MG TRANSDERM (08:42)
[2024-08-31] MEDS: DESENEX/MITRAZOL/ZEASORB 1 APPLIC TOPICAL (08:43)
[2024-08-31] MEDS: STERILE WATER FOR INJECTION IV ×2 (08:43→16:00)
--- NOTE | 2024-08-31 08:45 | PTCARENOTE ---
TAVR team to meet tomorrow to discuss possibility of procedure.
[2024-08-31] MEDS: SYMBICORT 160/4.5 MCG INHALER 2 PUFF INH ×2 (09:24→19:27)
[2024-08-31] MEDS: ATROVENT NEBULES 0.5 MG INH ×3 (09:24→19:27)
--- NOTE | 2024-08-31 09:27 | PHA.VAN.IN ---
Assessment
- Assessment
Renal Function: Appears elevated from baseline (2.6 vs 1.6-.18)
Concomitant Antimicrobials: cefepime
Plan
- Plan
Initial / Loading Dose: 2000mg - administration pending
Maintenance Regimen: dosing by level
Monitoring: random 09/01 06
MRSA Screen: Ordered per protocol
Pharmacokinetics Vancomycin I
- -
Patient Age: 74
Patient Sex: Male
Vancomycin Day #: 1
Indication: Pulmonary/Respiratory
Requesting Provider: Dr Obrien
Pertinent Antimicrobial Allergies:
no pertinent antibiotic allergies
Height / Weight:
Height 6 ft 0.5 in
Actual Weight 125.8 kg
Pertinent Past Medical History: BMI ~37, CKD (1.6-1.8), Cirrhosis, DM2
- Vital Signs / Lab Results
Temp Pulse Resp BP Pulse Ox
97.7 F 97 25 101/60 96
08/31/24 08:40 08/31/24 09:00 08/31/24 09:00 08/31/24 08:42 08/31/24 09:00
Lab Results - Hematology
08/29/24 08/30/24 08/31/24
02:57 03:51 02:19
WBC 9.9 9.8 9.5
Lab Results - Chemistry
08/29/24 08/30/24 08/31/24
02:57 03:51 02:19
BUN 66 H 68 H 70 H
Creatinine 2.4 H 2.5 H 2.6 H
Estimated Creat Clear 37 35 34
Microbiology Results
08/29/24 08:28 Body Fluid Culture - Preliminary
Peritoneal Fluid No Growth After 18-24 Hours
Gram Stain - Preliminary
--- NOTE | 2024-08-31 09:49 | W.PN.ONC2 ---
Today's Communication / Plan
-
daily CBC no diff
Impression
Impression
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
Possible cirrhosis -GI evaluation underway. Hx ETOH use
Ascites s/p para 08/29 3200cc drained
JAMES, CPAP non-compliance
JAI on CKD3
acute thrombocytopenia likely medications, procedures, cirrhosis. HIT negative. No B12 or folate deficency. No evidence acute dic with normal fibrinogen
Plan
Plan
f/u paracentesis cytology & culture
monitor for infection
daily CBC, no diff
Subjective/Objective
Subjective
increased delirium and agitation overnight
Vital Signs:
Vital Signs
Temp Pulse Resp BP Pulse Ox
97.7 F 94 16 101/60 96
08/31/24 08:40 08/31/24 09:27 08/31/24 09:27 08/31/24 08:42 08/31/24 09:27
Lab Results:
Laboratory Data
WBC 9.5 10^3/uL (4.8-10.8) 08/31/24 02:19
Hgb 12.8 g/dL (13.0-18.0) L 08/31/24 02:19
Plt Count 88 10^3/uL (130-400) L 08/31/24 02:19
PT 16.7 Sec (11.4-14.6) H 08/30/24 03:51
INR 1.32 08/30/24 03:51
APTT 90.3 Sec (23.4-35.0) H 08/31/24 02:19
eGFR 24.78 08/31/24 02:19
Physical Exam
HEENT: Moist Mucous Membranes; No Jaundice
Cardiology: Normal Sinus Rhythm
Pulmonary: Clear
GI: Soft
Extremities: Pulses Present
[2024-08-31 10:15] LABS: COVID-19 Antigen Negative (Negative)
--- NOTE | 2024-08-31 10:22 | W.PN.NEPH.PH ---
Today's Communication / Plan
-
Continue supportive care await surgical plan.
Assessment/Plan
-
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 . He was previously on Lasix, later trialed on Bumex (developed rash)
and now is on Torsemide. Today's RHC showed cardiac index of 1.0 and elevated wedge pressures of 37
renal consult for acute on chronic kidney disease with a baseline creatinine 1.6-1.8 with admitting creatinine 2.2.
Impression:
JAI
CKD (1.6-1.8)
Decompensated heart failure reduced ejection fraction 15%
Atrial fibrillation
ICD
Hyponatremia
Thrombocytopenia
Bioprosthetic aortic valve/
Plan:
Follow BMP
Met with the family again today at bedside discussed the plan going forward.
Awaiting CT surgery.
CAT scan shows possible pneumonia.
Continue with current diuretic dose although remains a positive daily despite Lasix drip or IV boluses.
Will need to consider preoperative hemodialysis for volume control if we do proceed with TAVR with understanding he may not tolerate the treatment from a hemodynamic standpoint. Likely would need ROTARY SHEAR CUTTER as the modality
-
-
Date of Service: August 31, 2024
CC / HPI / ROS
-
Chief Complaint:
Shortness of breath
History of Present Illness:
JAI/Cr 2.4
remains on dobutamine for decompensated HFrEF
Review of Systems:
no overt SOB
no CP
Nonoliguric via ross
Labs
-
Labs:
WBC 9.5 10^3/uL (4.8-10.8) 08/31/24 02:19
RBC 4.40 10^6/uL (4.70-6.10) L 08/31/24 02:19
Hgb 12.8 g/dL (13.0-18.0) L 08/31/24 02:19
Hct 38.1 % (39.0-52.0) L 08/31/24 02:19
Plt Count 88 10^3/uL (130-400) L 08/31/24 02:19
Sodium 127 mmol/L (135-145) L 08/31/24 02:19
Potassium 3.9 mmol/L (3.5-5.1) 08/31/24 02:19
Chloride 89 mmol/L (98-107) L 08/31/24 02:19
Carbon Dioxide 26 mmol/L (22-30) 08/31/24 02:19
BUN 70 mg/dl (9-20) H 08/31/24 02:19
Creatinine 2.6 mg/dL (0.7-1.3) H 08/31/24 02:19
eGFR 24.78 08/31/24 02:19
Glucose 140 mg/dl (70-99) H 08/31/24 02:19
Calcium 8.0 mg/dl (8.4-10.2) L 08/31/24 02:19
Nmt-B-Qamtlgyknci Pept 83787 pg/ml 08/21/24 17:10
Physical Exam
-
Vital Signs:
Vital Signs
Temp Pulse Resp BP Pulse Ox
97.7 F 94 16 101/60 96
08/31/24 08:40 08/31/24 09:27 08/31/24 09:27 08/31/24 08:42 08/31/24 09:27
Cardiovascular:: Regular rate and rhythm
Respiratory:: Bilateral: Coarse
Lung Excursion:: Normal
Abdomen:: Nontender and Soft
Bowel Sounds:: Normal
Extremity Edema:: +1: Bilateral:
Ross Catheter: Yes
[2024-08-31] MEDS: MAXIPIME 1000 MG IV ×3 (10:30→22:57)
[2024-08-31] MEDS: STERILE WATER FOR INJECTION 10 ML IV ×3 (10:30→22:57)
[2024-08-31 10:31] LABS: ALT (SGPT) 28 U/L (0-50); AST (SGOT) 38 U/L (17-59); Albumin 3.4 g/dl (3.5-5.0); Alkaline Phosphatase 48 U/L (38-126); Direct Bilirubin 0.9 mg/dl (0.0-0.4); Total Bilirubin 1.8 mg/dl (0.2-1.3); Total Protein 5.4 g/dl (6.3-8.2)
[2024-08-31] MEDS: VANCOCIN 540 MG IV (10:36)
[2024-08-31] MEDS: TYLENOL 650 MG PO (11:10)
--- NOTE | 2024-08-31 11:14 | W.PN.GI.CBS2 ---
Today's Communication / Plan
-
Continue current care. Outpatient GI follow-up
Assessment / Plan
-
Summary: 74yo male admitted with persistent weight gain, abdominal distention undergoing eval by Cardiology with hx AVR 2009 and now being considered for TAVR. During eval CT chest 07/31/24 showed subtle liver nodularity suggestive of cirrhosis,
moderate ascites, normal spleen. US doppler 08/01/24 showed mildly dilated hep v and biphasic flow c/w elevated pulm pressure/CHF and moderately dampen hepatopedal flow portal v but no PVT. Liver was reported normal in US. Plt and albumin have
been normal, but plt count has dropped since admission, current eval for HIT. Heavy ETOH history
Impression:
Liver cirrhosis noted on CT chest
s/p AVR 2009
CHF
ARF
Ascites -s/p paracentesis with removal of 3.2 L
Heavy EtOH hx
Acute thrombocytopenia-evaluated by hematology.
Recommendations:
Based on ascitic fluid analysis-high SAAG with high protein ascites ( Total protein 3.8 ) -in favor of right heart failure
Hep B/ C negative 08/01/24. Ferritin normal. Autoimmune markers negative
Patient unable to have IV contrast imaging secondary to JAI. will recommend MRI abdomen/elastography or FibroScan as outpatient as further evaluation for liver cirrhosis
Discussed with hospitalist/cardiology/critical care team. Continue further care per cardiology / critical care team
No further recommendation at this point. Will sign off. Please call us back if any questions
Total Time Spent with Patient (in minutes): 35
Subjective
Subjective
Date of Service: August 31, 2024
No GI complaints
Objective
Data Reviewed
Laboratory Data:
Laboratory Results
08/31/24 02:19
08/31/24 02:19
Laboratory Results
PT 16.7 Sec (11.4-14.6) H 08/30/24 03:51
INR 1.32 08/30/24 03:51
APTT 90.3 Sec (23.4-35.0) H 08/31/24 02:19
Magnesium 2.3 mg/dl (1.6-2.3) 08/31/24 02:19
Total Bilirubin 1.8 mg/dl (0.2-1.3) H 08/31/24 02:19
AST 38 U/L (17-59) 08/31/24 02:19
ALT 28 U/L (0-50) 08/31/24 02:19
Alkaline Phosphatase 48 U/L (38-126) 08/31/24 02:19
Vital Signs and I&O:
Vital Signs
Temp Pulse Resp BP Pulse Ox
97.7 F 94 16 101/60 96
08/31/24 08:40 08/31/24 09:27 08/31/24 09:27 08/31/24 08:42 08/31/24 09:27
I&O
08/30/24 08/31/24 09/01/24
06:59 06:59 06:59
Intake Total 1655.8 / 1697.5 1853.1 / 1892.8 698.8 / 698.8
Output Total 1410 / 1460 1060 / 1060 245 / 245
Balance 245.8 / 237.5 793.1 / 832.8 453.8 / 453.8
Physical Exam
Physical Exam
GI: Soft, Distended (Mildly distended) and Non Tender
[2024-08-31 11:50] LABS: Glucose - Point of Care 118 mg/dl (70-99)
[2024-08-31] MEDS: NOVOLOG FLEXPEN-HIGH RESISTANCE SC ×2 (11:56→18:31)
--- NOTE | 2024-08-31 12:02 | W.PN.INTV ---
Today's Communication / Plan
Recommendations
Critical condition of the patient explained to the family
Continue DuoNebs for wheezing and chest
Start on cefepime and vancomycin with renal adjusted doses for multifocal pneumonia
Recent change in mental status-related to sepsis
Nephro continuing Lasix at 120 mg twice daily -poor candidate for dialysis-on dobutamine
Given recent changes in health-poor candidate for TAVR
Assessment
-
Impression
Mr Carrera is a 74-year-old male with a history of hypertension, hyperlipidemia, CAD/CABG, diabetes, atrial fibrillation and JAMES/CPAP intolerant , AICD in place with subsequent worsening shortness of breath ,underwent elective right heart
catheterization that showed severely elevated filling pressures with low cardiac index necessitating pulmonary artery catheter placement.
His active issues are worsening creatinine/moderate ascites secondary to CHF/worsening heart function
Assessment
# Altered mental status secondary to sepsis/uremia
Acute on chronic with reduced EF(15-20%)
Paroxysmal Atrial fibrillation
Cardiogenic shock
Obstructive sleep apnea
Worsening renal function/JAI secondary to cardiorenal syndrome
Hyperglycemia
Low platelet count
Anxiety
Nodularity of liver
# Altered mental status secondary to sepsis/uremia
Patient having auditory and visual hallucinations most likely secondary to uremia/sepsis
Nephro consult appreciated-since the change in creatinine was gradual-unlikely to be uremia-consider sepsis
Head CT normal without any acute pathology
CT chest Done, showed bilateral groundglass nodules new from prior consistent with multifocal pneumonia, hepatic cirrhosis, bilateral slight pleural effusions and moderate upper abdominal ascites
Started empirically on cefepime and vancomycin with renal adjusted dose
Blood cultures pending
#Acute on chronic with reduced EF(15-20%)
Extensive cardiac history including a CABG/AICD placed in 06/2024 and paroxysmal atrial fibrillation
Cardiology consult appreciated -Cardiomyopathy-EF 20%-no improvement despite optimal medical therapy-although weight down by 5 pounds in past 24 hours
Serum creatinine has worsened-Patient shifted to 120 mg Lasix boluses twice daily by nephrology
Patient is still on dobutamine/now suspicion of sepsis-unlikely TAVR
Family informed that patient will be treated for sepsis
#Paroxysmal Atrial fibrillation
Continue heparin infusion as 4ts score, show low probability of HIT
Platelet count improving
Continue oral amiodarone for heart rate control
#CARDIOGENIC SHOCK
Secondary to atrial fibrillation and reduced LVEF
Patient is still on dobutamine infusion at 7.5 mcg/h
#JAMES
Refusing Bipap at night
VBGs(08/28/24)show Ph of7.5 and carbon dioxide of 34
#Worsening renal function/JAI secondary to cardiorenal syndrome
Patient serum creatinine continues to get worse, positive fluid balance
Patient is not a good candidate of dialysis since he is on dobutamine infusion to maintain vitals
Condition explained to the family-still agreeable to dialysis
#Hyperglycemia
Patient has blood sugar readings
HbA1c 7.2,07/14/2024
Insulin resistance on sliding scale changed to high
Lantus 15 units added at night,continue to monitor and titrate up as needed
Monitor blood sugar levels
#Low Platelet count
Abdominal ultrasound showed mild abdominopelvic ascites 08/22/2024
FINDINGS: There is mild abdominopelvic ascites. The largest pocket is in the lateral left lower quadrant.
There is a moderate right pleural effusion.
Elevated liver enzymes
On heparin infusion for 4T-score showed low probability, HIT panel pending, platelet count improving, can continue heparin infusion
Dilutional?
GI evaluation was done, given normal albumin, normal platelet, normal spleen cirrhosis unlikely, but at the same time the CT showed mild nodularity of liver and patient has history of heavy alcohol use, paracentesis was done today by IR, 3.2 L of
fluid drained, increased protein in fluid suggestive of ascites secondary to congestive heart failure
Continue to monitor
#ANXIETY
Continue zoloft
Ativan as needed
Patient feeling better
Full code
Subjective Dataa
Subjective Data
Date of Service:
Date of Service: August 31, 2024
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
Subjective:
Patient started having hallucination and asterixis yesterday
On dobutamine 7.5 mcg/min and heparin infusion
MAP is 70
Having some chest congestion and CT changes- suspected pneumonia/COVID
Review of Systems
General: Other ( patient denied any active issues)
Objective Data
Data Reviewed
Vital Signs / I&O / Oxygen:
Vital Signs
Temp Pulse Resp BP Pulse Ox
97.7 F 99 21 101/60 96
08/31/24 08:40 08/31/24 11:00 08/31/24 11:00 08/31/24 08:42 08/31/24 11:00
Intake and Output
08/30/24 08/31/24 09/01/24
06:59 06:59 06:59
Intake Total 1655.8 / 1697.5 1853.1 / 1892.8 738.5 / 738.5
Output Total 1410 / 1460 1060 / 1060 285 / 285
Balance 245.8 / 237.5 793.1 / 832.8 453.5 / 453.5
SaO2 96
Nasal Cannula flow liters per 2
minute
Physical Exam
General: Comfortable and Other (Morbidly obese, well-developed and nourished, conversant, having hallucinations at night about being in the bakery)
HEENT: Normocephalic, Anicteric and Other (thick neck, breathing on room air)
Cardiovascular: S1-S2, Regular Rhythm, Murmur (Soft systolic murmur in the upper sternal border), Peripheral Edema (+2 lower extremity pitting edema bilaterally) and Other (Tachycardia)
Respiratory: Clear, Wheeze and Non-Labored Respirations
GI: Soft, Non Tender and Normal Bowel Sounds
Neurology: Awake, Oriented, Tremors, Other (New muscular twitches) and Other (Hallucinating and having both visual and auditory hallucinations)
Skin: Warm and Dry
Labs/Micro/Reports
Lab Data
08/31/24 02:19
08/31/24 02:19
Laboratory Results
08/30/24 08/31/24
15:49 02:19
APTT 90.3 H
pH 7.45
pCO2 39
pO2 143 H
HCO3 27.1
O2 Delivery Level
Microbiology
08/31/24 09:50 Nose Nasal Screen MRSA (PCR) - Final
MRSA not detected - performed by PCR methodology.
08/31/24 09:44 Urine Legionella Urinary Antigen - Final
Negative for Legionella pneumophila Serogroup 1 antigen.
A negative result does not rule out the possiblity of
Legionella infection due to other serogroups or species of
Legionella. Clinical correlation is recommended.
08/31/24 09:44 Urine Streptococcus pneumoniae Antigen (M - Final
Negative for Streptococcus pneumoniae antigen.
A negative result does not exclude infection with
Streptococcus pneumoniae. Clinical correlation is
recommended.
08/29/24 08:28 Peritoneal Fluid Body Fluid Culture - Preliminary
No Growth After 48 Hours
08/29/24 08:28 Peritoneal Fluid Gram Stain - Preliminary
[2024-08-31 12:05] VITALS: BMI 37.1
--- NOTE | 2024-08-31 14:07 | CM ---
CM following re: discharge planning.
Discussed in Rounds, reviewed pt's chart, met with pt and pt's family at bedside. Per Rounds meeting, undergoing evaluation for possible TAVR, possible goals of care discussion, Nephrology, Cardiology following, continue supportive care.
Pt and OT continue recommending acute rehab. Pt is aware, [facility] credit verification clerk following.
D/C plan: Uncertain at this time and will depend on pt's progress. [facility] acute rehab when medically stable.
CM will follow with discharge plan updates as hospitalization progresses
--- NOTE | 2024-08-31 14:12 | W.PN.HOSP.TC ---
Today's Communication/Plan
-
f/u culture data
maintain on empiric abx
continue diuretic/dobutamine drip
f/u wt/cr
Assessment / Plan
Assessment / Plan
Acute on chronic heart failure with reduced ejection fraction, EF 25-30%
Cardiomyopathy, mixed without improved ejection fraction despite optimal medical therapy
Cardiogenic shock
s/p bio AVR
s/p Med[employer]onic biventricular ICD 07/07/2024
- BNP 17,500 at admission
- s/p RHC with Severely elevated right and left-sided filling pressures with severe pulmonary hypertension and severely reduced cardiac output (cardiac index .96) in the setting of elevated systemic vascular resistance. Wedge 35.
- s/p swan Pradeep cath placement 08/22
- s/p Milrinone drip and now on dobutamine
- sodium/fluid restriction
- On hydralazine/Imdur for afterload reduction
- Remains on Lasix/dobutamine drip
- await CTS team for evaluation of TAVR
JAI on CKD stage 3b, acute cardiorenal state
Hypervolemic Hyponatremia
- Na has trended down to 127 today,
- Nephrology following
- consideration for HD support if candidate for valve repair
Ascites
Cirrhosis
-Liver morphology showing changes of cirrhosis on CT chest July
-Patient underwent paracentesis of 3.2 L acetic fluid, SAAG elevated and suggestive of HF related ascites.
-SHRUTI/Mitochondrial M2/F-actin/HIT
-GI following and test sent to check for etiology of cirrhosis
Acute toxic metabolic encephalopathy
ICU delirium
-Likely multifactorial from multifocal pneumonia/renal failure/Hyponatremia related
-started on abx for multifocal PNA
-discussed with nephro if appropriate to get dose of Samsca for hyponatremia
-required PRN zyprexa dosing.
Multifocal PNA
-maintain on iv vanc/cefepime
-COVID neg
-CT chest images reviewed.
JAMES not using CPAP at home
- continue nocturnal BIPAP
- Pulm following
Hypokalemia, replete as needed
LBBB
Hx NSVT
- s/p Medtronic biventricular ICD 07/07/2024
History of atrial fibrillation s/p cv 07/23/2023
- continue Amiodarone
- IV Heparin drip requires intensive monitoring of PTTs; holding Eliquis in case additional support procedures needed for advanced CHF
History of COVID September 2021
Essential HTN
- Aldactone/BB held. on Hydralazine with Cardiology titrating
HLD
- continue statin
DM2
- hold Jardiance
- continue SSI
- A1c: 7.2% recently
CAD s/p 1 vessel CABG 2009
- continue ASA/Statin
s/p Bio-AVR 2009
H/o Cough syncope
Radiculopathy
Depression - on Zoloft
Ocular migraines
Renal calculi
Arthritis
DVT ppx: IV Heparin
Code: Full code after re-discussed with daughter
Discussed with nephrology
Total critical care time 42 mins . Total critical care time documented does not include time spent on separately billed procedures or the services of residents, students, nurses or physician assistants. I personally saw and examined the patient. I
have reviewed all diagnostic interpretations and treatment plans as written. I was present for the salcedo portions of any procedures performed and the inclusive time noted in any critical care statement. Critical care time includes patient management
by me, time spent at the patients bedside, time to review lab and imaging results, discussing patient care, documentation in the medical record, and time spent with the family or caregiver.
Anticipated Discharge: > 48 hours
Subjective/Interval History
-
Date of Service: August 31, 2024
Sleeping comfortably in bed
Patient have developed some delirium overnight required Zyprexa
Afebrile overnight
Continue to require dobutamine/Lasix drip
Objective Data
-
Labs:
Laboratory Results
08/31/24
02:19
WBC 9.5
Hgb 12.8 L
Hct 38.1 L
Plt Count 88 L
APTT 90.3 H
Sodium 127 L
Potassium 3.9
Chloride 89 L
Carbon Dioxide 26
BUN 70 H
Creatinine 2.6 H
Glucose 140 H
Calcium 8.0 L
Total Bilirubin 1.8 H
AST 38
ALT 28
Alkaline Phosphatase 48
Vital Signs:
Vital Signs
Temp Pulse Resp BP Pulse Ox
97.5 F 95 16 101/60 98
08/31/24 12:04 08/31/24 13:35 08/31/24 13:35 08/31/24 08:42 08/31/24 13:35
I&O
08/30/24 08/31/24 09/01/24
06:59 06:59 06:59
Intake Total 1655.8 / 1697.5 1853.1 / 1892.8 1057.9 / 1057.9
Output Total 1410 / 1460 1060 / 1060 350 / 350
Balance 245.8 / 237.5 793.1 / 832.8 707.9 / 707.9
Review of Systems
-
Respiratory: Reports No Symptoms
Cardiac: Reports No Symptoms
Abdomen/GI: Reports No Symptoms
Physical Exam
-
General: No Apparent Distress and Obese
HEENT: Negative Oxygen
Respiratory: Clear to Auscultation
Cardiac: Regular Rhythm and S1/S2; Negative Murmur
GI: Soft, Nontender, Nondistended and Normal Bowel Sounds
Musculoskeletal: Edema, Right Lower Extrem and Edema, Left Lower Extrem
Neuro: Awake, Alert and Oriented
[2024-08-31 14:27] LABS: Glucose - Point of Care 122 mg/dl (70-99)
--- NOTE | 2024-08-31 14:30 | PTCARENOTE ---
Called Dr. Obrien into the room, patient eyes rolled in the back of his head, he stated he felt weak and numb, stated he was 'going to ' then became minimally responsive. Family was present and made decision to make him a DNR. Family would
like to hopefully proceed with possibly transitioning to palliative care, milrinone gtt home if possible. But otherwise ok with inpatient hospice. consults to palliative care team and case management made.
--- NOTE | 2024-08-31 14:37 | CHAP ---
Addendum entered by Vivi Alexis 08/31/24 15:15:
Fr. Magallon anticipates arriving some time this afternoon. Also, I provided a prayer blanket and will follow as able.
Original Note:
[employer] Production Worker request relayed to on-call Fr. Sherita leija. Awaiting call back
--- NOTE | 2024-08-31 14:37 | W.PN.UPDATE ---
Update Note
Progress Note Update
Called into room by bedside RN due to change in mental status. When I saw the patient he was laying back, minimally responsive, although still occasionally answering questions. He says that he is not in any pain. No tonic�clonic movements seen.
No urinary incontinence seen or tongue biting. Just prior to this event he said that he feels like he is about to have a heart attack. Code status discussed and the was called, and he was made DNR/DNI. Family at bedside and they are very
emotional. Watchmaker Apprentice called. After several minutes he became more responsive and asked for some food, specifically a quesadilla. Will not start comfort care measures at this time, and will continue to closely monitor.
[2024-08-31] MEDS: APRESOLINE PO ×2 (16:08→22:14)
[2024-08-31] MEDS: CRESTOR 10 MG PO (17:22)
[2024-08-31] MEDS: SAMSCA 15 MG PO (17:23)
[2024-08-31 18:06] LABS: Glucose - Point of Care 151 mg/dl (70-99)
--- NOTE | 2024-08-31 20:30 | PTCARENOTE ---
paper twister tender, pt aaox3, denies pain, VPaced HR 90s. RIJ cordis WNL- heparin/dobutamine infusing per work list. R sumi RAYMUNDO WNL. Valdovinos draining adequate amt aylin urine. POC discussed. call alvarez with pt.
[2024-08-31] MEDS: DESENEX/MITRAZOL/ZEASORB TOPICAL (20:40)
[2024-08-31] MEDS: LANTUS 0.15 UNITS SC (22:57)
[2024-08-31] MEDS: ZOLOFT 50 MG PO (22:57)
[2024-08-31] MEDS: XALATAN OPHTHALMIC SOLUTION 1 DROP RIGHT EYE (22:57)
[2024-08-31 23:12] LABS: Glucose - Point of Care 152 mg/dl (70-99)
[2024-09-01] VITALS (8 sets, daily range): BP systolic 83–99; BP diastolic 50–75; PULSE 107; O2SAT 96; BMI 37.4
--- NOTE | 2024-09-01 04:00 | PTCARENOTE ---
no changes in pt assessment.
[2024-09-01 05:48] LABS: Ammonia < 9 umol/L (9-30)
[2024-09-01 06:17] LABS: APTT 92.4 Sec (23.4-35.0)
[2024-09-01 06:29] LABS: ALT (SGPT) 28 U/L (0-50); AST (SGOT) 37 U/L (17-59); Albumin 3.6 g/dl (3.5-5.0); Alkaline Phosphatase 49 U/L (38-126); Blood Urea Nitrogen 71 mg/dl (9-20); Calcium 8.5 mg/dl (8.4-10.2); Carbon Dioxide 23 mmol/L (22-30); Chloride 88 mmol/L (98-107); Estimated Creatinine Clearance 32 ml/min; Glucose 124 mg/dl (70-99); Magnesium 2.4 mg/dl (1.6-2.3); Phosphorus 4.9 mg/dl (2.5-4.5); Potassium 3.5 mmol/L (3.5-5.1); Sodium 126 mmol/L (135-145); Total Bilirubin 1.8 mg/dl (0.2-1.3); Total Protein 5.7 g/dl (6.3-8.2); eGFR 23.68
[2024-09-01 06:34] LABS: NT-proBNP > 27000 pg/ml
[2024-09-01 06:35] LABS: Hemoglobin 12.6 g/dL (13.0-18.0); Mean Corp Hgb Conc. 33.2 g/dL (33.0-37.0); Mean Corpuscular Hgb 28.7 pg (27.0-31.0); Mean Corpuscular Volume 86.6 fL (80.0-94.0); Mean Platelet Volume 11.1 fL (7.4-10.4); Platelet Count 92 10^3/uL (130-400); Red Blood Cell Count 4.39 10^6/uL (4.70-6.10); Red Cell Dist. Width 15.8 % (11.5-14.5); White Blood Cell Count 8.4 10^3/uL (4.8-10.8)
[2024-09-01] MEDS: XOPENEX 1.25 MG INHALANT SOLUTION INH ×3 (07:15→20:16)
[2024-09-01] MEDS: ATROVENT NEBULES 0.5 MG INH ×3 (07:15→20:16)
[2024-09-01] MEDS: SYMBICORT 160/4.5 MCG INHALER 2 PUFF INH ×2 (07:16→20:16)
[2024-09-01] MEDS: MAXIPIME 1000 MG IV (08:08)
[2024-09-01] MEDS: IMDUR (EXTENDED RELEASE) 30 MG PO (08:08)
[2024-09-01] MEDS: STERILE WATER FOR INJECTION 10 ML IV (08:08)
[2024-09-01] MEDS: NOVOLOG FLEXPEN-HIGH RESISTANCE 1 UNITS SC ×2 (08:08→17:45)
[2024-09-01] MEDS: MIRALAX PO (08:11)
[2024-09-01] MEDS: DOBUTREX 500 MG 250 IV ×2 (08:11→16:53)
[2024-09-01] MEDS: DESENEX/MITRAZOL/ZEASORB 1 APPLIC TOPICAL ×2 (08:11→20:00)
[2024-09-01] MEDS: STERILE WATER FOR INJECTION IV (08:11)
[2024-09-01] MEDS: ASPIR LOW (ENTERIC COATED) 81 MG PO (08:11)
[2024-09-01] MEDS: LASIX 120 MG IV ×2 (08:13→16:32)
[2024-09-01] MEDS: PACERONE 200 MG PO (08:13)
[2024-09-01] MEDS: APRESOLINE 37.5 MG PO ×2 (08:13→16:32)
[2024-09-01] MEDS: NICODERM TRANSDERMAL 14 MG TRANSDERM (08:14)
[2024-09-01 08:18] LABS: Glucose - Point of Care 128 mg/dl (70-99)
--- NOTE | 2024-09-01 08:20 | W.PN.INTV ---
Today's Communication / Plan
Recommendations
Patient is interested in going home with palliative milrinone and then transition to home hospice
Continue with dobutamine drip while he is in the ICU while we arrange for the above
He continues to have episodes of confusion with upward eye gaze and shaking movements, possibly a seizure. Discussed case with neurology (Dr. Mcnally), and I will start low-dose Keppra
CT head from 08/30/2024 negative for acute pathology
Trend UOP and sCr
Given worsening creatinine, dialysis was discussed and patient is not interested
Strict I/O
Aspiration precautions
Up OOB as tolerated
Follow-up paracentesis cultures from 08/29 (NGTD)
PT/OT
Keep K>4, Mg>2
Guarded prognosis
He is now DNR/DNI (see event note from 08/31/2024)
Sports Commentator services will continue to follow along while he remains in ICU
Assessment
-
74-year-old obese occasional cigar smoking male with a history of hypertension, hyperlipidemia, CAD/CABG, diabetes, atrial fibrillation and JAMES/CPAP intolerant recently had AICD placed with subsequent history of difficult to control CHF underwent
elective right heart catheterization noted to have severely elevated filling pressures with low cardiac index necessitating ICU/pulmonary artery catheter/inotropes-ranch hand consulted for CHF/critical care management 08/22/2024.
Impression:
CHF-acute on top of chronic with reduced EF
Cardiomyopathy status post recent biventricular ICD 07/07/2024
JAI with suspected cardiorenal syndrome
Abnormal CT chest on 08/30/2024 with concern for multifocal pneumonia with bronchial wall thickening seen in the right lower lobe
Hyperglycemia
Hypocalcemia � now resolved
Elevated LFTs
Right sided pleural effusion likely due to cirrhosis with a hepatohydrothorax
Obesity
History of heavy alcohol use
Cardiac ascites s/p paracentesis on 08/29/2024 removing 3200 cc of exudative fluid
COPD likely due to unremitting asthma
Conditions present prior to admission:
Hypertension.
Hyperlipidemia.
Diabetes.
CAD/CABG/AVR.
Cardiomyopathy-EF 20%
ICD June 2025.
JAMES/CPAP intolerant.
Atrial fibrillation on Eliquis.
Abnormal CT abdomen-suggestive of cirrhosis 07/2024
Varicocele repair. Lumbar discectomy 2021. Repair ascending aortic aneurysm/AVR-bovine.
Plan
Patient critically ill and admitted to ICU to obtain pulmonary artery catheter, inotropes, diuresis-extensive cardiac and pulmonary workup summarized below
- He remains on dobutamine gtt and lasix gtt changed to intermittent dosing on 08/30 (lasix drip was started 08/27/2024)
- [place]-Pradeep removed on 08/26/2024
Supplemental oxygen as needed to keep SpO2 >90%
Incentive spirometry q1hr while awake
CPAP or BiPAP at night as tolerated-in the past has been intolerant-willing to use --> did not tolerate BiPAP overnight 08/25 - 08/26/2024, and refused again last night and the night before --> now DC'd
- Blood gas on AM of 08/28 showed metabolic alkalosis with appropriate respiratory compensation --> ABG rechecked on 08/30/2024 when he was becoming delirious/hallucinating, and pCO2 was normal at 39 with pH 7.45
Aspiration precautions
Given COPD seen on outpatient PFT on 11/29/2023 with normalization of DLco, Symbicort started as well as ipratropium + Xopenex; there is concern for unremitting asthma as cause of COPD
Nebulizers if needed - currently not bronchospastic
s/p prednisone taper (completed on 08/24/2024) - was not for pulmonary-had rash possibly Bumex related as an outpatient
Cardiology following-correspondence reviewed
Right heart catheterization results reviewed-significantly elevated filling pressures with low cardiac index-RHC 08/21/24: RA 30, PA 63/38, PCWP 35-42, CO/CI 2.3/0.96, SVR 1880, PVR: 6.85 FARRAR
Pulmonary artery catheter placement-08/22/2024-improvement in cardiac index, PCWP, RA-pressure, SVR + PVR
PAC was removed on 08/26/2024 after it malpositioned ([place]-Pradeep was accidentally withdrawn somehow by the patient)
Continue diuresis as tolerated-intensified per nephrology - now off lasix gtt and on intermittent lasix dosing since 08/30
Inotropes continue-currently on dobutamine s/p milrinone
Monitor renal function, electrolytes, intake/output, lower extremity edema and weight
Replace electrolytes as needed
PO amiodarone continues as well
Heparin drip continues-Eliquis on hold--eventual change back
SOFIYA panel negative
Eventually start GDMT (hydralazine on for afterload reduction)
CT TAVR checked on showing scattered bilateral groundglass + patchy opacities with highly suspected multifocal pneumonia with report of hepatic cirrhosis
- Cardiology TAVR team still evaluating if he is a candidate for TAVR --> given his worsening creatinine and now with a downtrending sodium, as well as his new pneumonia, patient is interested in going home on hospice. Plan is to discharge home
with palliative milrinone, and then transitioning to hospice after he is home. Cardiology made aware of plan (I spoke with Dr. Obando).
Monitor renal function
Replace electrolytes
Acute cardiorenal state
Nephrology following-correspondence reviewed
He continues to have episodes of altered mental status, with no urinary incontinence, tongue biting or tonic�clonic movements - continue to monitor; low-dose Keppra started and I discussed the case with neurology
Monitor ascites-not enough fluid for diagnostic or therapeutic paracentesis per abdominal ultrasound on 08/22/2024 --> he went down for paracentesis on 08/29 and 3.2 L of clear, dark aylin-colored exudative fluid was removed (SAAG: >1.1, protein >2.5
indicating cardiac ascites)
Abdominal ultrasound summarized below
Trend LFTs
Liver appeared normal on recent abdominal ultrasound on 08/01/2024, hence doubtful he has cirrhosis despite CT chest on 07/31/2024 showing nodular external surface of liver concerning for cirrhosis
Monitor MSAS-no signs of withdrawal
Alcohol withdrawal treatment protocol if indicated
Ativan as needed - not currently indicated
Monitor blood sugar with goal 140-180
Insulin supplementation as needed with basal�bolus SQ insulin dose
We found out he was chewing tobacco in the room, and this was stopped. Continue nicotine patch for now
Last saw Dr. Mars/Gabrielle Macario CNP on 11/29/[address] Mars reviewed with as well as daughter at the bedside 08/22/2024, 08/23/2024, 08/24/2024, 08/25/[address] Obrien answered all the family's questions at bedside in layman's terms to their satisfaction
Critical care statement: A total of 38 minutes of critical care time was provided for this patient today. This includes management of unstable vital signs, evaluation of the patient at bedside, reviewing the patient's pertinent medical records
including radiographs, pressor and inotrope management, diuresis management, microbiology, laboratory evaluations, and discussion with primary team, consultants, pharmacy, nutrition, physical therapy, case management, charge nurse, critical care
nursing, and respiratory therapy.
Diagnostic data:
CXR 10/01/21: cardiomegaly with slightly prominent pulmonary vascularity which could represent mild CHF vs atypical acute pulmonary edema. possible left basilar patchy opacity such as pna������
��
Chest x-ray 12/10/21-NAD
Chest x-ray 08/22/2024-no acute disease in the chest, cardiomegaly, waterbed configuration
CT Chest 09/29/21: no PE. small bilateral pleural effusions. mild peripheral ground glass densities in lower lung zones b/l suggesting mild residual pna.��
CT chest 07/11/23-no pulmonary embolism, minimal right pleural effusion, minimal pleural thickening left hemithorrax, no adenopathy or nodules.
CT chest 07/31/2024-small right pleural effusion, moderate ascites, liver contour appears to be subtly nodular suggestive of cirrhosis, basilar atelectasis
Abdominal ultrasound 08/22/2024 - mild abdominal pelvic ascites, slightly progressed. Moderate right pleural effusion.
US BLE 10/01/21: negative for DVT������������������
ECHO 08/11/21: ischemic heart disease with mildly reduced systolic function. LV EF 40-45%. moderate LVH. RV base mildly enlarged. Tricuspid and mitral regurgitation. s/p bioprosthetic aortic valve prosthesis.�������
Nuclear stress test 06/12/21-EF 25%, moderate risk study�������
Echocardiogram 06/28/23-EF 20-25%, stage II diastolic dysfunction, bioprosthetic aortic valve, PA systolic 45, rhythm atrial fibrillation�������
Stress test 07/13/23-revealed a moderate in size, medium severity fixed basal to distal inferior and inferoseptal perfusion defect, EF 21%, overall high risk study.�������
Echo 02/16/2024: EF 25%. Global hypokinesis with basal inferior and basal inferolateral akinesis. Stage III diastolic dysfunction. Moderate to severe MR. Severely dilated left atrium. #23 bovine aortic valve with peak/mean gradient 46/29 mmHg.
Mild AI. Mild TR. PAP 35 mmHg
Echo 07/14/2024: EF 25-30% with global hypo, enlarged RV, ICD in place well seated #23 bovine AVR with peak/mean grad of 27/19 mmHg respectively, trace pericardial effusion.
Echo 08/21/24: EF 15-20%, AVR with mean gr 30, PA 30
Cardioversion 07/23/23-successful cardioversion from atrial fibrillation to sinus rhythm.
Cardiac catheterization 03/28/2024: LM: LI. LAD: Moderate to severe diffuse atherosclerotic plaque. D2 has 30% stenosis. Left circumflex: Mid 60 to 70% stenosis. RCA: LI.
HEMODYNAMICS : (mmHg) RA (m) : 22; RV (s/d,m) : 72/14, 24; PA (s/d, m) : 72/34, 50; PCWP (m) : 34, V waves to 53 mmHg; PA saturation: 62.5% on room air; AO saturation: 93.6% on room air;
Cardiac Output : 5.58 L/min; Cardiac Index : 2.23 L/min/m-2; Systemic vascular resistance: 889 dsc^(-5); Pulmonary vascular resistance: 2.87 willams unit; AO (s/d) : 102/61; LV (s/d) : 131/21; LVEDP : 30
Estimated invasive transaortic gradient of 27 mmHg, aortic valve area 1.3 cm�
Significantly elevated right and left-sided filling pressures with severe pulmonary hypertension and normal cardiac output. Borderline low systemic vascular resistance.
PFT 12/19/21-FEV1 2.55-72%, FVC 3.77 L-70%, no significant response, TLC 80%, 90%, DLCO 64%. Mild obstruction and moderate reduction in diffusing capacity.�������
Spirometry 07/29/23-FEV1 1.18-34%, FVC 1.5-39%, no significant BD response. Severe obstruction.
Subjective Dataa
Subjective Data
Date of Service:
Date of Service: September 01, 2024
Chief Complaint: Sports Commentator Follow Up and Pulmonary Follow Up
Subjective:
Patient seen and evaluated this morning. Remains on dobutamine at 7.5mcg/kg/min. Heart rate 93, breathing at 15 breaths minute with saturations of 100%, and BP 99/72. He continues to have episodes of hallucinations with upward eye gaze and
shaking movements. He currently denies chest pain, GUTHRIE, nausea, fevers or chills.
Review of Systems
General: Other (Negative unless mentioned above)
Objective Data
Data Reviewed
Vital Signs / I&O / Oxygen:
Vital Signs
Temp Pulse Resp BP Pulse Ox
98.4 F 96 17 90/65 95
09/01/24 07:30 09/01/24 08:30 09/01/24 08:30 09/01/24 08:16 09/01/24 08:30
Intake and Output
08/31/24 09/01/24 09/02/24
06:59 06:59 06:59
Intake Total 1853.1 / 1892.8 1732.8 / 1772.5 319.4 / 319.4
Output Total 1060 / 1060 1870 / 1870 350 / 350
Balance 793.1 / 832.8 -137.2 / -97.5 -30.6 / -30.6
SaO2 95
Nasal Cannula flow liters per 2
minute
Physical Exam
General: Respiratory Distress (negative), Comfortable, Chills (negative), Sweats (negative) and Other (Morbidly obese)
HEENT: Normocephalic, Anicteric and Other (thick neck)
Cardiovascular: S1-S2, Murmur (CM heard across precordium) and Peripheral Edema (+2 lower extremity pitting edema bilaterally)
Respiratory: Wheeze (negative), Crackles (Bibasilar), Rhonchi (negative), Non-Labored Respirations and Stridor (negative)
GI: Soft, Distended (Abdominal obesity), Non Tender and Normal Bowel Sounds
Neurology: Awake, Alert, Oriented and Tremors (Occasionally although improved)
Skin: Warm, Dry, Cyanosis (negative) and Jaundice (negative)
Labs/Micro/Reports
Lab Data
09/01/24 05:23
09/01/24 05:23
Laboratory Results
09/01/24
05:25
APTT 92.4 H
Microbiology
08/31/24 09:50 Nose Nasal Screen MRSA (PCR) - Final
MRSA not detected - performed by PCR methodology.
08/31/24 09:44 Urine Legionella Urinary Antigen - Final
Negative for Legionella pneumophila Serogroup 1 antigen.
A negative result does not rule out the possiblity of
Legionella infection due to other serogroups or species of
Legionella. Clinical correlation is recommended.
08/31/24 09:44 Urine Streptococcus pneumoniae Antigen (M - Final
Negative for Streptococcus pneumoniae antigen.
A negative result does not exclude infection with
Streptococcus pneumoniae. Clinical correlation is
recommended.
08/29/24 08:28 Peritoneal Fluid Body Fluid Culture - Preliminary
No Growth After 48 Hours
08/29/24 08:28 Peritoneal Fluid Gram Stain - Preliminary
--- NOTE | 2024-09-01 08:40 | W.PN.NEPH.PH ---
Today's Communication / Plan
-
await TAVR decision
Assessment/Plan
-
74 y/o M, hx of Obesity, HTN, HLD, T2DM, Afib on eliquis, Hx of LBBB, hx of BioAVR and 1 vessel CABG, JAMES not compliance on CPAP, s/p ICD presents to slab depiler operator for elective RHC. . He was previously on Lasix, later trialed on Bumex (developed rash)
and now is on Torsemide. Today's RHC showed cardiac index of 1.0 and elevated wedge pressures of 37
renal consult for acute on chronic kidney disease with a baseline creatinine 1.6-1.8 with admitting creatinine 2.2.
Impression:
JAI
CKD (1.6-1.8)
Decompensated heart failure reduced ejection fraction 15%
Atrial fibrillation
ICD
Hyponatremia
Thrombocytopenia
Bioprosthetic aortic valve/
Plan:
Follow BMP
await final TAVR decision today. Seems that unless TAVR would offer substantial benefit, he may not be willing to pursue it.
He would then want to go home in the next 24-48 hrs, possibly with home dobutamine.
I would then switch diuretics to torsemide 40mg po BID
no emergent HD indications today
d/w pt and family at bedside
critical care time 31 minutes
-
-
Date of Service: September 01, 2024
CC / HPI / ROS
-
Chief Complaint:
Shortness of breath
History of Present Illness:
JAI/Cr worse at 2.6
remains on dobutamine for decompensated HFrEF
good response still to IV lasix BID
events overnight noted
Review of Systems:
no overt SOB
no CP
Nonoliguric via ross
Labs
-
Labs:
WBC 8.4 10^3/uL (4.8-10.8) 09/01/24 05:23
RBC 4.39 10^6/uL (4.70-6.10) L 09/01/24 05:23
Hgb 12.6 g/dL (13.0-18.0) L 09/01/24 05:23
Hct 38.0 % (39.0-52.0) L 09/01/24 05:23
Plt Count 92 10^3/uL (130-400) L 09/01/24 05:23
Sodium 126 mmol/L (135-145) L 09/01/24 05:23
Potassium 3.5 mmol/L (3.5-5.1) 09/01/24 05:23
Chloride 88 mmol/L (98-107) L 09/01/24 05:23
Carbon Dioxide 23 mmol/L (22-30) 09/01/24 05:23
BUN 71 mg/dl (9-20) H 09/01/24 05:23
Creatinine 2.7 mg/dL (0.7-1.3) H 09/01/24 05:23
eGFR 23.68 09/01/24 05:23
Glucose 124 mg/dl (70-99) H 09/01/24 05:23
Calcium 8.5 mg/dl (8.4-10.2) 09/01/24 05:23
Phosphorus 4.9 mg/dl (2.5-4.5) H 09/01/24 05:23
Nzh-J-Djrtxbfvamz Pept > 91813 pg/ml 09/01/24 05:23
Albumin 3.6 g/dl (3.5-5.0) 09/01/24 05:23
Physical Exam
-
Vital Signs:
Vital Signs
Temp Pulse Resp BP Pulse Ox
98.4 F 96 17 90/65 95
09/01/24 07:30 09/01/24 08:30 09/01/24 08:30 09/01/24 08:16 01/24/25 08:30
Cardiovascular:: Regular rate and rhythm
Respiratory:: Bilateral: Coarse
Lung Excursion:: Normal
Abdomen:: Nontender and Soft
Bowel Sounds:: Normal
Extremity Edema:: +3: Bilateral:
--- NOTE | 2024-09-01 08:58 | HOSPNOTE ---
Addendum entered by Fay Ibarra RN 09/01/24 13:52:
The new plan is for patient to go home with VN/infusion with a milrinone drip and a CAD pump which the infusion company will take care of. Patient is getting a PICC line today. I will order equipment on Wednesday for delivery in hopes to get the
patient home on Wednesday afternoon. Once the patient is home with VN/infusion and chooses to stop the infusion hospice will be present with medications so patient is not symptomatic and then patient will be on our service. We will follow this weekend
in case patient declines and hospice is needed.
Addendum entered by Fay Ibarra RN 09/01/24 09:48:
Spoke with patient and family and discussed hospice and the philosophy. Family would like to wait to speak with cardiology and get their input on a TAVR to see if it is even an option and if it would be beneficial. If patient chooses hospice
transport would be needed OOH DNR would be needed, equipment would need to be ordered. Once patient is home our hospice nurse will admit onto our service. Will await cardiology input. More information to follow once a decision is made. The plan for
me is to speak with family later this afternoon. If they are in agreement we will get patient home tomorrow and admit.
Original Note:
Referral received will speak family. More information to follow.
--- NOTE | 2024-09-01 09:17 | W.PN.INTV ---
Today's Communication / Plan
Recommendations
Awaiting TAVR team meeting
If decision made to not to TAVR-patient will likely go home in the next 24 to 48 hours
Nephrology awaiting the decision-plan to shift to oral torsemide 40 mg twice daily for home
Patient might need dobutamine infusion at home
TAVR is unlikely-explained to patient-patient opted for comfort care
Assessment
-
Impression
Mr Carrera is a 74-year-old male with a history of hypertension, hyperlipidemia, CAD/CABG, diabetes, atrial fibrillation and JAMES/CPAP intolerant , AICD in place with subsequent worsening shortness of breath ,underwent elective right heart
catheterization that showed severely elevated filling pressures with low cardiac index necessitating pulmonary artery catheter placement.
His active issues are worsening creatinine/moderate ascites secondary to CHF/worsening heart function
Assessment
# Altered mental status secondary to sepsis/uremia
Acute on chronic with reduced EF(15-20%)
Paroxysmal Atrial fibrillation
Cardiogenic shock
Obstructive sleep apnea
Worsening renal function/JAI secondary to cardiorenal syndrome
Hyperglycemia
Low platelet count
Anxiety
Nodularity of liver
# Altered mental status secondary to sepsis/uremia
Patient having auditory and visual hallucinations most likely secondary to uremia/sepsis
Nephro consult appreciated-since the change in creatinine was gradual-unlikely to be uremia-consider sepsis
Head CT normal without any acute pathology
CT chest Done, showed bilateral groundglass nodules new from prior consistent with multifocal pneumonia, hepatic cirrhosis, bilateral slight pleural effusions and moderate upper abdominal ascites
Started empirically on cefepime -with renal adjusted dose
Blood cultures pending
MRSA not detected in nasal swab
#Acute on chronic with reduced EF(15-20%)
Extensive cardiac history including a CABG/AICD placed in 06/2024 and paroxysmal atrial fibrillation
Cardiology consult appreciated -Cardiomyopathy-EF 20%-no improvement despite optimal medical therapy-although weight down by 5 pounds in past 24 hours
Serum creatinine has worsened-Patient shifted to 120 mg Lasix boluses twice daily by nephrology
Patient is still on dobutamine/multifocal [id number] negative-unlikely TAVR
Family informed that patient will be treated for sepsis
Patient and family awaiting TAVR TEAM meeting-if no TAVR-would likely go home in next 24-48hours
TAVR unlikely-explained to patient-opting for comfort care
#Paroxysmal Atrial fibrillation
Continue heparin infusion as 4ts score, show low probability of HIT
Platelet count improving
Continue oral amiodarone for heart rate control
#CARDIOGENIC SHOCK
Secondary to atrial fibrillation and reduced LVEF
Patient is still on dobutamine infusion at 7.5 mcg/h
#JAMES
Refusing Bipap at night
VBGs(08/28/24)show Ph of7.5 and carbon dioxide of 34
#Worsening renal function/JAI secondary to cardiorenal syndrome
Patient serum creatinine continues to get worse,gained one kg today,-91.9ml
Patient is not a good candidate of dialysis since he is on dobutamine infusion to maintain vitals
Condition explained to the family-still agreeable to dialysis
#Hyperglycemia
Patient has blood sugar readings
HbA1c 7.2,07/14/2024
Insulin resistance on sliding scale changed to high
Lantus 15 units added at night,continue to monitor and titrate up as needed
Monitor blood sugar levels
#Low Platelet count
Abdominal ultrasound showed mild abdominopelvic ascites 08/22/2024
FINDINGS: There is mild abdominopelvic ascites. The largest pocket is in the lateral left lower quadrant.
There is a moderate right pleural effusion.
Elevated liver enzymes
On heparin infusion for 4T-score showed low probability, HIT panel -negative, platelet count improving, can continue heparin infusion
Dilutional?
GI evaluation was done, given normal albumin, normal platelet, normal spleen cirrhosis unlikely, but at the same time the CT showed mild nodularity of liver and patient has history of heavy alcohol use, paracentesis was done today by IR, 3.2 L of
fluid drained, increased protein in fluid suggestive of ascites secondary to congestive heart failure
Continue to monitor
#ANXIETY
Continue zoloft
Ativan as needed
Patient feeling better
CODE STATUS #DNR/DNI
DVT prophylaxis# heparin infusion
On nicotine patch and gum
Subjective Dataa
Subjective Data
Date of Service:
Date of Service: September 01, 2024
Chief Complaint: Straight Edger Follow Up and Pulmonary Follow Up
Subjective:
Patient feeling fine today,had a peaceful night as per patient and family
No hallucinations or delusions
Had an event of feeling like having a heart attack as per the patient yesterday,after which code status changed to DNR/DNI
Currently on dobutamine 7.5mcg/min,amiodarone and heparin infusion
Breathing on room air
Review of Systems
General: Other (Reviewed and negative)
Objective Data
Data Reviewed
Vital Signs / I&O / Oxygen:
Vital Signs
Temp Pulse Resp BP Pulse Ox
98.4 F 96 17 90/65 95
09/01/24 07:30 09/01/24 08:30 09/01/24 08:30 09/01/24 08:16 09/01/24 08:30
Intake and Output
08/31/24 09/01/24 09/02/24
06:59 06:59 06:59
Intake Total 1853.1 / 1892.8 1732.8 / 1772.5 319.4 / 319.4
Output Total 1060 / 1060 1870 / 1870 350 / 350
Balance 793.1 / 832.8 -137.2 / -97.5 -30.6 / -30.6
SaO2 95
Nasal Cannula flow liters per 2
minute
Physical Exam
General: Comfortable and Other (Morbidly obese, well-developed and nourished, conversant,had a peaceful night,no further hallucinations)
HEENT: Normocephalic, Anicteric and Other (thick neck)
Cardiovascular: S1-S2, Murmur (Soft systolic murmur in right upper sternal border) and Peripheral Edema (+2 lower extremity pitting edema bilaterally)
Respiratory: Wheeze and Non-Labored Respirations
GI: Soft, Distended (Abdominal obesity), Non Tender and Normal Bowel Sounds
Neurology: Awake, Oriented and No Motor Deficits
Skin: Warm, Dry and Good Color
Labs/Micro/Reports
Lab Data
09/01/24 05:23
09/01/24 05:23
Laboratory Results
09/01/24
05:
APTT 92.4 H
Microbiology
08/31/24 09:50 Nose Nasal Screen MRSA (PCR) - Final
MRSA not detected - performed by PCR methodology.
08/31/24 09:44 Urine Legionella Urinary Antigen - Final
Negative for Legionella pneumophila Serogroup 1 antigen.
A negative result does not rule out the possiblity of
Legionella infection due to other serogroups or species of
Legionella. Clinical correlation is recommended.
08/31/24 09:44 Urine Streptococcus pneumoniae Antigen (M - Final
Negative for Streptococcus pneumoniae antigen.
A negative result does not exclude infection with
Streptococcus pneumoniae. Clinical correlation is
recommended.
08/29/24 08:28 Peritoneal Fluid Body Fluid Culture - Preliminary
No Growth After 48 Hours
08/29/24 08:28 Peritoneal Fluid Gram Stain - Preliminary
--- NOTE | 2024-09-01 09:40 | W.PN.CARDCBS ---
Today's Communication / Plan
-
Cont inotrope support to augment diuresis
Still appears significantly volume overloaded, will defer diuretic dosing to nephrology
TAVR eval on going
Impression / Plan
-
PCP: Dr. Chintan Gonzalez
Cardiology: Dr. Gabriel, superintendent [employer] pt
Impression
Acute on chronic HFrEF with cardiogenic shock
JAI
Cardiomyopathy, mixed without improved ejection fraction despite optimal medical therapy
Change in mental status
PNA
s/p Medtronic biventricular ICD 07/07/2024
LBBB
CAD
s/p bio AVR 2009Paroxysmal atrial fibrillation
s/p cv 07/23/2023 Chronic AC w/ Eliquish/o NSVT
h/o COVID September 2021
HTN
HLD
DM2
JAMES not using CPAP
h/o cough syncope
Radiculopathy
Depression
Ocular migraines
Renal calculi
Arthritis
Lexiscan sestamibi stress test 07/13/2023: Moderate sized medium in severity fixed basal to distal inferior, basal to mid inferoseptal, small mid anterior perfusion defect with no evidence of ischemia. Ejection fraction 21% with severe global
hypokinesis
Cardiac catheterization 03/28/2024: LM: LI. LAD: Moderate to severe diffuse atherosclerotic plaque. D2 has 30% stenosis. Left circumflex: Mid 60 to 70% stenosis. RCA: LI.
HEMODYNAMICS : (mmHg) RA (m) : 22; RV (s/d,m) : 72/14, 24; PA (s/d, m) : 72/34, 50; PCWP (m) : 34, V waves to 53 mmHg; PA saturation: 62.5% on room air; AO saturation: 93.6% on room air;
Cardiac Output : 5.58 L/min; Cardiac Index : 2.23 L/min/m-2; Systemic vascular resistance: 889 dsc^(-5); Pulmonary vascular resistance: 2.87 willams unit; AO (s/d) : 102/61; LV (s/d) : 131/21; LVEDP : 30
Estimated invasive transaortic gradient of 27 mmHg, aortic valve area 1.3 cm�
Significantly elevated right and left-sided filling pressures with severe pulmonary hypertension and normal cardiac output. Borderline low systemic vascular resistance.
RHC 08/21/24: RA 30, PA 63/38, PCWP 35-42, CO/CI 2.3/0.96, SVR 1880
RHC 08/23/24: RA 15, PA 65/28, PCWP 27, CO/CI 4.47/1.75, PA sat 65.6%, SVR 1432, PVR 3.81
Echo 01/2022: Ejection fraction 40%, global hypokinesis, status post AVR with mean gradient of 10 mmHg
Echo 06/28/2023: Dilated right ventricle with ejection fraction of 20 to 25%, status post bioprosthetic AVR with mean gradient of 15 mmHg, dilated right heart with PA systolic of 45 mmHg
Echo 08/03/2023: Ejection fraction 25 to 30%, hypokinetic septum, apex, inferior, anterior and distal lateral pelletier, mild concentric LVH, moderate MR, status post bioprosthetic AVR with mean gradient of 13 mm hG
Echo 02/16/2024: EF 25%. Global hypokinesis with basal inferior and basal inferolateral akinesis. Stage III diastolic dysfunction. Moderate to severe MR. Severely dilated left atrium. #23 bovine aortic valve with peak/mean gradient 46/29 mmHg.
Mild AI. Mild TR. PAP 35 mmHg
Echo 07/14/2024: EF 25-30% with global hypo, enlarged RV, ICD in place well seated #23 bovine AVR with peak/mean grad of 27/19 mmHg respectively, trace pericardial effusion.
Echo 08/21/24: EF 15-20%, AVR with mean gr 30, PA 30
Plan:
Still appears volume overloaded on exam
Weight remains above his dry wt
Renal function slightly worsened with creatinine of 2.7
Suspect he needs further IV diuresis
Nephrology is managing diuretic therapy and pt is now off IV Lasix gtt and on lasix 120 mg IV BID
Continue Dobutamine for now given CM and
Paracentesis of 3.3L was consistent with right heart failure.
GI does not feel ascites consistent with cirrhosis
Hep B/ C negative 08/01/24. Ferritin normal. Autoimmune markers negative
Recommended MRI abdomen/elastography or FibroScan as outpatient as further evaluation for liver cirrhosis
TAVR eval ongoing and received noncontrast CT to assess. Renal function remains a significant obstacle.
Pt and family understand HD risk associated with IV contrast.
Last left heart cath Mar 2024.
Platelets remain low but are stable
HIT panel is pending
Status remains tenuous.
Discussed with family members at bedside
Dr Gabriel note 08/30/2024: Had a discussion with Eron and his Jane at the bedside. He is feeling much better after paracentesis. 3.2 L of ascites drained yesterday with cytology and lab studies pending. Big picture discussion with patient
and regarding goals of care. He wants to at least pursue the workup for a transcatheter valve and is even willing to consider temporary dialysis if he is able to achieve a better quality of life. In my mind alternative would be home inotrope
plus or minus continuation of ICD therapies. He was sitting in the chair for 6 hours yesterday and symptomatically feels much better on inotrope he. Ongoing discussions and coordination with the TAVR team. Please see separate Dr. Beatty note for
full detail. I have seen Eron in the office for approximately 15 years and was pending a visit to discuss options and goals of care.
Clinical summary: 74-year-old man with history of heavy alcohol use, abstinent for 18 months, H/O Obesity, HTN, HLD, T2DM, Afib on eliquis, Hx of LBBB, hx of BioAVR and 1 vessel CABG, JAMES not compliance on CPAP, s/p ICD presents to builder's labourer for
elective RHC. . He was previously on Lasix, later trialed on Bumex (developed rash) and now is on Torsemide.
RHC on 08/21/24 finds markedly elevated filling pressures with pulmonary capillary wedge pressure of 35 and severely depressed cardiac index of 1 with cardiac output of 2.34.
RHC on 08/22/[address] SG catheter and demonstrated elevated filling pressures with pulmonary capillary wedge pressure of 27, elevated pulmonary pressures of 65/28, cardiogenic shock with cardiac index of 1.75
Progress Note - Core Paster
Subjective
Date of Service: September 01, 2024
NAOE. Still reporting abd distention/bloating. Tells me edema in his LEs has not improved and is uncomfortable.
Objective
Labs:
09/01/24 05:23
09/01/24 05:23
Labs
Hgb 12.6 g/dL (13.0-18.0) L 09/01/24 05:23
Hct 38.0 % (39.0-52.0) L 09/01/24 05:23
Plt Count 92 10^3/uL (130-400) L 09/01/24 05:23
PT 16.7 Sec (11.4-14.6) H 08/30/24 03:51
INR 1.32 08/30/24 03:51
APTT 92.4 Sec (23.4-35.0) H 09/01/24 05:25
Sodium 126 mmol/L (135-145) L 09/01/24 05:23
Potassium 3.5 mmol/L (3.5-5.1) 09/01/24 05:23
BUN 71 mg/dl (9-20) H 09/01/24 05:23
Creatinine 2.7 mg/dL (0.7-1.3) H 09/01/24 05:23
Glucose 124 mg/dl (70-99) H 09/01/24 05:23
Vital Signs and I&O:
Vital Signs
Temp Pulse Resp BP Pulse Ox
98.4 F 96 17 90/65 95
09/01/24 07:30 09/01/24 08:30 09/01/24 08:30 09/01/24 08:16 09/01/24 08:30
Vital Signs
Temp Pulse Resp BP Pulse Ox
98.4 F 96 17 90/65 95
09/01/24 07:30 09/01/24 08:30 09/01/24 08:30 09/01/24 08:16 09/01/24 08:30
Intake & Output
08/30/24 08/31/24 09/01/24 09/02/24
06:59 06:59 06:59 06:59
Intake Total 1655.8 / 1697.5 1853.1 / 1892.8 1732.8 / 1772.5 359.1 / 359.1
Output Total 1410 / 1460 1060 / 1060 1870 / 1870 350 / 350
Balance 245.8 / 237.5 793.1 / 832.8 -137.2 / -97.5 9.1 / 9.1
Physical Exam
Physical Exam
Gen: NAD, AAOx3
HEENT: NC/AT, sclera anicteric
Neck: Difficult to assess JVP
CV: RRR, NL s1/s2
Lungs: CTAB
Abd: S/distended
Ext: 2+ LE edema
Skin: Warm, dry
Neuro: Non-focal
--- NOTE | 2024-09-01 10:32 | PTCARENOTE ---
Assumed care of pt from hourly shift RN. AAOx3. Vpaced on media monitor, HRs 90s. Heparin & Dobutamine infusing per order. R IJ cordis and R radial A-line WNL. Valdovinos draining aylin urine. Hospice at bedside this morning to discuss GOC with family
present. Ideally family would like pt to be transported home on Milrinone support and switched to Hospice once at home. PICC order placed. PT/OT to see pt today. Pt resting in bed, family at bedside. Assessment documented.
[2024-09-01] MEDS: KLOR-CON 40 MEQ PO (11:30)
[2024-09-01] MEDS: NOVOLOG FLEXPEN-HIGH RESISTANCE 2 UNITS SC (11:32)
[2024-09-01 11:43] LABS: Glucose - Point of Care 174 mg/dl (70-99)
--- NOTE | 2024-09-01 13:16 | PTCARENOTE ---
Assessment unchanged. Awaiting cardiology input on TAVR before moving forward with Palliative/Hospice care.
--- NOTE | 2024-09-01 14:15 | W.PN.UPDATE ---
Update Note
Progress Note Update
Attending addendum: We discussed the patient at length at valve clinic meeting this morning. He has a myriad of medical issues including severe aortic stenosis. His procedural risks are markedly elevated approaching futile. The overwhelming
consensus was that although his aortic stenosis is a piece of the problem that it does not account for the majority of his complex medical issues and that TAVR should not be recommended. Palliative care has been consulted and I have discussed with
Fay Ibarra and Dr. Obrien. Palliative care has indicated that setting up home infusion may take a few days. I suspect he will do okay off Dobutamine for a few days. We will begin lowering dose and see how he does. Hospice / palliative care
is planned approach favored by patient and family
--- NOTE | 2024-09-01 15:00 | CM ---
CM following re: discharge planning.
Discussed in Rounds, reviewed pt's chart, met with pt and pt's family at bedside.
Hospice consult noted. Pt and his family preferred hospice.
A referral to hospice made. liaison officer following.
D/C plan: home with hospice. liaison officer following.
CM will follow with discharge plan updates as hospitalization progresses
[2024-09-01] MEDS: SAMSCA 15 MG PO (15:02)
[2024-09-01] MEDS: KEPPRA 500 MG IV ×2 (15:02→19:52)
--- NOTE | 2024-09-01 15:15 | W.PN.HOSP.TC ---
Today's Communication/Plan
-
d/c planning for home
continue abx
repeat samsca dosing per nephro
f/u weight/cr on lasix
Assessment / Plan
Assessment / Plan
Acute on chronic heart failure with reduced ejection fraction, EF 25-30%
Cardiomyopathy, mixed without improved ejection fraction despite optimal medical therapy
Cardiogenic shock
s/p bio AVR
s/p Medtronic biventricular ICD 07/07/2024
- BNP 17,500 at admission
- s/p RHC with Severely elevated right and left-sided filling pressures with severe pulmonary hypertension and severely reduced cardiac output (cardiac index .96) in the setting of elevated systemic vascular resistance. Wedge 35.
- s/p swan Pradeep cath placement 08/22
- s/p Milrinone drip and now on dobutamine
- sodium/fluid restriction
- On hydralazine/Imdur for afterload reduction
- Lasix drip changed to IV lasix bid.
- Patient not a candidate for TAVR with significantly increased risk. Family aware and planning of palliative care at home
JAI on CKD stage 3b, acute cardiorenal state
Hypervolemic Hyponatremia
- Na has trended down to 127 today,
- Nephrology following
Ascites
Cirrhosis
-Liver morphology showing changes of cirrhosis on CT chest July
-Patient underwent paracentesis of 3.2 L acetic fluid, SAAG elevated and suggestive of HF related ascites.
-SHRUTI/Mitochondrial M2/F-actin/HIT
-GI following and test sent to check for etiology of cirrhosis
Acute toxic metabolic encephalopathy
ICU delirium
-Likely multifactorial from multifocal pneumonia/renal failure/Hyponatremia related
-started on abx for multifocal PNA
-discussed with nephro if appropriate to get dose of Samsca for hyponatremia
-required PRN zyprexa dosing.
Multifocal PNA
-on cefepime
-COVID neg
-CT chest images reviewed.
JAMES not using CPAP at home
- continue nocturnal BIPAP
- Pulm following
Hypokalemia, replete as needed
LBBB
Hx NSVT
- s/p Medtronic biventricular ICD 07/07/2024
History of atrial fibrillation s/p cv 07/23/2023
- continue Amiodarone
- IV Heparin drip requires intensive monitoring of PTTs; holding Eliquis in case additional support procedures needed for advanced CHF
History of COVID September 2021
Essential HTN
- Aldactone/BB held. on Hydralazine with Cardiology titrating
HLD
- continue statin
DM2
- hold Jardiance
- continue SSI
- A1c: 7.2% recently
CAD s/p 1 vessel CABG 2009
- continue ASA/Statin
s/p Bio-AVR 2009
H/o Cough syncope
Radiculopathy
Depression - on Zoloft
Ocular migraines
Renal calculi
Arthritis
DVT ppx: IV Heparin
Code: Full code after re-discussed with daughter
Discussed with patient family. Hospice to have visiting. Patient family want patient to be discharged on home infusion of dobutamine/milrinone with enrollment in palliative care,on further decline patient will be transition to hospice care
Total critical care time 36 mins . Total critical care time documented does not include time spent on separately billed procedures or the services of residents, students, nurses or physician assistants. I personally saw and examined the patient. I
have reviewed all diagnostic interpretations and treatment plans as written. I was present for the salcedo portions of any procedures performed and the inclusive time noted in any critical care statement. Critical care time includes patient management
by me, time spent at the patients bedside, time to review lab and imaging results, discussing patient care, documentation in the medical record, and time spent with the family or caregiver.
Anticipated Discharge: 24 - 48 hours
Subjective/Interval History
-
Date of Service: September 01, 2024
Episode of minimal responsiveness/AMS yesterday
Some reported delirium overnight as well
Afebrile
Off of oxygen on room air
Objective Data
-
Labs:
Laboratory Results
09/01/24 09/01/24
05:23 05:25
WBC 8.4
Hgb 12.6 L
Hct 38.0 L
Plt Count 92 L
APTT 92.4 H
Sodium 126 L
Potassium 3.5
Chloride 88 L
Carbon Dioxide 23
BUN 71 H
Creatinine 2.7 H
Glucose 124 H
Calcium 8.5
Total Bilirubin 1.8 H
AST 37
ALT 28
Alkaline Phosphatase 49
Vital Signs:
Vital Signs
Temp Pulse Resp BP Pulse Ox
97.6 F 92 24 99/72 97
09/01/24 11:35 09/01/24 13:38 09/01/24 13:38 09/01/24 13:11 09/01/24 13:38
I&O
08/31/24 09/01/24 09/02/24
06:59 06:59 06:59
Intake Total 1853.1 / 1892.8 1732.8 / 1772.5 597.3 / 597.3
Output Total 1060 / 1060 1870 / 1870 850 / 850
Balance 793.1 / 832.8 -137.2 / -97.5 -252.7 / -252.7
Review of Systems
-
Respiratory: Reports No Symptoms
Cardiac: Reports No Symptoms
Abdomen/GI: Reports No Symptoms
Physical Exam
-
General: No Apparent Distress and Obese
HEENT: Negative Oxygen
Respiratory: Clear to Auscultation
Cardiac: Regular Rhythm and S1/S2; Negative Murmur
GI: Soft, Nontender, Nondistended and Normal Bowel Sounds
Musculoskeletal: Edema, Right Lower Extrem and Edema, Left Lower Extrem
Neuro: Oriented and No Motor Deficits
--- NOTE | 2024-09-01 15:27 | PTCARENOTE ---
Per cardiology, pt not candidate for TAVR. Will move forward with plan for Palliative/Hospice care. Pt to be discharged home Wednesday on palliative Milrinone and than transitioned to hospice care once at home. PICC placed in RUE by IV team at bedside.
Placement confirmed by Xray. Neurology consulted for seizure like activity. IV Keppra started. Family at bedside. Pt resting in bed.
[2024-09-01] MEDS: TYLENOL 650 MG PO (16:57)
[2024-09-01 17:36] LABS: Glucose - Point of Care 128 mg/dl (70-99)
[2024-09-01] MEDS: UNASYN IV (17:45)
[2024-09-01] MEDS: CRESTOR 10 MG PO (17:45)
[2024-09-01] MEDS: FLEXERIL 5 MG PO (18:06)
[2024-09-01] MEDS: HEPARIN 25000 UNITS/250 ML IV (18:32)
[2024-09-01] MEDS: STERILE WATER FOR INJECTION 2.1 ML IM (19:53)
[2024-09-01] MEDS: ZYPREXA 10 MG IM (19:54)
--- NOTE | 2024-09-01 20:30 | PTCARENOTE ---
assumed care pt laying flat in bed, Ox3 drowsy, very tremulous CHEATHAM, V paced on the monitor c PVCs and prolonged QT, SCDs refused education provided, R radial a-line zeroed, QT prolonged HOURLY CAREGIVER notified given ok to give Zyprexa, +2 to lower extremities,
SpO2 dropped to low 80's around 194, NC applied 4L, continued to drop to 70's pt pulled up in bed HOB elevated and NRB 15L applied for 5min, sats recovered, NC 2L 99% HOB 30, diminished and coarse throughout, round obese BSx4, ross draining aylin
output, bruising on abd, R groin and hip, gtts per worklist, family @ bedside and updated, CHG bath, R IJ cordis, R PICC, otherwise refer to documentation.
[2024-09-01] MEDS: LANTUS 0.15 UNITS SC (22:06)
[2024-09-01] MEDS: XALATAN OPHTHALMIC SOLUTION 1 DROP RIGHT EYE (22:07)
[2024-09-01 22:16] LABS: Glucose - Point of Care 154 mg/dl (70-99)
[2024-09-01] MEDS: MORPHINE SULFATE 2 MG IV ×2 (23:38→23:49)
[2024-09-01 23:51] LABS: B.E. 0 mmol/L; HCO3 23.8 mmol/L (21-28); O2 Saturation % 99.3 % (94-98); PCO2 35 mmHg (35-48); PO2 109 mmHg (83-108); pH 7.44 (7.35-7.45)
[2024-09-01] MEDS: APRESOLINE PO (23:55)
[2024-09-01] MEDS: ZOLOFT PO (23:55)
[2024-09-02] MEDS: UNASYN IV ×5 (00:21→23:57)
--- NOTE | 2024-09-02 00:28 | PTCARENOTE ---
systems reviewed, around 2314 daughter came out off room because pt woke up and became agitated, I was off the floor @ a Rapid nurses on floor responded, when I returned pt was pulling O2 and gown off, pt vitals remained stable, pt was minimally
responsive only answering some questions nodding head, GRAPE CRUSHER @ bedside spoke with GRAPE CRUSHER on the phone, ABG sent, morphine given per order, after 2nd does of morphine pt appeared much more calm, PO meds held, family @ bedside and emotional support
provided, otherwise refer to documentation.
[2024-09-02] MEDS: DOBUTREX 500 MG 250 IV ×3 (02:11→20:13)
[2024-09-02] MEDS: MORPHINE SULFATE 2 MG IV ×7 (02:17→23:06)
[2024-09-02 03:41] VITALS: BMI 37.5
--- NOTE | 2024-09-02 03:44 | PTCARENOTE ---
systems reviewed, morphine per mar, pt resting comfortably vitals stable, labs sent, otherwise refer to documentation.
[2024-09-02 04:03] LABS: % Eosinophils 1.2 % (0-6); % Immature Granulocytes 0.4 % (0-0.5); % Lymphocytes 3.5 % (20.5-51.1); % Monocytes 5.8 % (1.7-9.3); % Neutrophils 89.1 % (42.2-75.2); Absolute Eosinophils 0.1 10^3/uL (0-0.7); Absolute Lymphocytes 0.3 10^3/uL (1.2-3.4); Absolute Monocytes 0.5 10^3/uL (0.1-0.6); Absolute Neutrophils 8.2 10^3/uL (1.4-6.5); Hematocrit 37.7 % (39.0-52.0); Hemoglobin 12.5 g/dL (13.0-18.0); Mean Corp Hgb Conc. 33.2 g/dL (33.0-37.0); Mean Corpuscular Hgb 28.7 pg (27.0-31.0); Mean Corpuscular Volume 86.5 fL (80.0-94.0); Mean Platelet Volume 11.7 fL (7.4-10.4); Nucleated Red Blood Cells % 0 % (-); Platelet Count 85 10^3/uL (130-400); Red Blood Cell Count 4.36 10^6/uL (4.70-6.10); Red Cell Dist. Width 15.9 % (11.5-14.5); White Blood Cell Count 9.2 10^3/uL (4.8-10.8)
[2024-09-02 04:13] LABS: APTT 63.5 Sec (23.4-35.0)
[2024-09-02 04:16] LABS: Blood Urea Nitrogen 73 mg/dl (9-20); Calcium 8.6 mg/dl (8.4-10.2); Carbon Dioxide 25 mmol/L (22-30); Chloride 89 mmol/L (98-107); Estimated Creatinine Clearance 34 ml/min; Glucose 147 mg/dl (70-99); Potassium 3.4 mmol/L (3.5-5.1); Sodium 127 mmol/L (135-145); eGFR 24.78
[2024-09-02] MEDS: KCL 270 MEQ IV (05:27)
[2024-09-02] MEDS: XOPENEX 1.25 MG INHALANT SOLUTION INH ×3 (07:24→20:27)
[2024-09-02] MEDS: ATROVENT NEBULES 0.5 MG INH ×3 (07:24→20:27)
[2024-09-02] MEDS: SYMBICORT 160/4.5 MCG INHALER INH (07:25)
--- NOTE | 2024-09-02 07:39 | W.PN.CARDCBS ---
Today's Communication / Plan
-
Continues to do poorly
MS worse
Family now moving toward inpatient hospice as he continues to deteriorate.
TAVR team reviewed his case and he is felt to be a poor candidate for TAVR and it was not recommended.
Hospice/palliative care is appropriate.
Still appears volume overloaded on exam and weight remains above his dry wt and worsening
Renal function remains abnormal with creatinine of 2.6 09/02 and 2.7 on 09/01.
Nephrology is managing diuretic therapy and pt is on lasix 120 mg IV BID
Can continue Dobutamine for now given CM and until hospice eval
Impression / Plan
-
PCP: Dr. Chintan Gonzalez
Cardiology: Dr. Gabriel, termite inspector pt
Impression
Acute on chronic HFrEF with cardiogenic shock
JAI
Cardiomyopathy, mixed without improved ejection fraction despite optimal medical therapy
Change in mental status
PNA
s/p Medtronic biventricular ICD 07/07/2024
LBBB
CAD
s/p bio AVR 2009Paroxysmal atrial fibrillation
s/p cv 07/23/2023 Chronic AC w/ Eliquish/o NSVT
h/o COVID September 2021
HTN
HLD
DM2
JAMES not using CPAP
h/o cough syncope
Radiculopathy
Depression
Ocular migraines
Renal calculi
Arthritis
Lexiscan sestamibi stress test 07/13/2023: Moderate sized medium in severity fixed basal to distal inferior, basal to mid inferoseptal, small mid anterior perfusion defect with no evidence of ischemia. Ejection fraction 21% with severe global
hypokinesis
Cardiac catheterization 03/28/2024: LM: MENDOZA. LAD: Moderate to severe diffuse atherosclerotic plaque. D2 has 30% stenosis. Left circumflex: Mid 60 to 70% stenosis. RCA: LI.
HEMODYNAMICS : (mmHg) RA (m) : 22; RV (s/d,m) : 72/14, 24; PA (s/d, m) : 72/34, 50; PCWP (m) : 34, V waves to 53 mmHg; PA saturation: 62.5% on room air; AO saturation: 93.6% on room air;
Cardiac Output : 5.58 L/min; Cardiac Index : 2.23 L/min/m-2; Systemic vascular resistance: 889 dsc^(-5); Pulmonary vascular resistance: 2.87 willams unit; AO (s/d) : 102/61; LV (s/d) : 131/21; LVEDP : 30
Estimated invasive transaortic gradient of 27 mmHg, aortic valve area 1.3 cm�
Significantly elevated right and left-sided filling pressures with severe pulmonary hypertension and normal cardiac output. Borderline low systemic vascular resistance.
RHC 08/21/24: RA 30, PA 63/38, PCWP 35-42, CO/CI 2.3/0.96, SVR 1880
RHC 08/23/24: RA 15, PA 65/28, PCWP 27, CO/CI 4.47/1.75, PA sat 65.6%, SVR 1432, PVR 3.81
Echo 01/2022: Ejection fraction 40%, global hypokinesis, status post AVR with mean gradient of 10 mmHg
Echo 06/28/2023: Dilated right ventricle with ejection fraction of 20 to 25%, status post bioprosthetic AVR with mean gradient of 15 mmHg, dilated right heart with PA systolic of 45 mmHg
Echo 08/03/2023: Ejection fraction 25 to 30%, hypokinetic septum, apex, inferior, anterior and distal lateral pelletier, mild concentric LVH, moderate MR, status post bioprosthetic AVR with mean gradient of 13 mm hG
Echo 02/16/2024: EF 25%. Global hypokinesis with basal inferior and basal inferolateral akinesis. Stage III diastolic dysfunction. Moderate to severe MR. Severely dilated left atrium. #23 bovine aortic valve with peak/mean gradient 46/29 mmHg.
Mild AI. Mild TR. PAP 35 mmHg
Echo 07/14/2024: EF 25-30% with global hypo, enlarged RV, ICD in place well seated #23 bovine AVR with peak/mean grad of 27/19 mmHg respectively, trace pericardial effusion.
Echo 08/21/24: EF 15-20%, AVR with mean gr 30, PA 30
Plan:
Continues to do poorly
MS worse
Family now moving toward inpatient hospice as he continues to deteriorate.
TAVR team reviewed his case and he is felt to be a poor candidate for TAVR and it was not recommended.
Hospice/palliative care is appropriate.
Still appears volume overloaded on exam and weight remains above his dry wt and worsening
Renal function remains abnormal with creatinine of 2.6 09/02 and 2.7 on 09/01.
Nephrology is managing diuretic therapy and pt is on lasix 120 mg IV BID
Can continue Dobutamine for now given CM and until hospice eval
Paracentesis of 3.3L was consistent with right heart failure.
GI does not feel ascites consistent with cirrhosis
Hep B/ C negative 08/01/24. Ferritin normal. Autoimmune markers negative
GI recommended MRI abdomen/elastography or FibroScan as outpatient as further evaluation for liver cirrhosis
Platelets remain low but are stable
Status remains tenuous.
Discussed with at bedside and nursing.
Dr Gabriel note 08/30/2024: Had a discussion with Eron and his Jane at the bedside. He is feeling much better after paracentesis. 3.2 L of ascites drained yesterday with cytology and lab studies pending. Big picture discussion with patient
and regarding goals of care. He wants to at least pursue the workup for a transcatheter valve and is even willing to consider temporary dialysis if he is able to achieve a better quality of life. In my mind alternative would be home inotrope
plus or minus continuation of ICD therapies. He was sitting in the chair for 6 hours yesterday and symptomatically feels much better on inotrope he. Ongoing discussions and coordination with the TAVR team. Please see separate Dr. Beatty note for
full detail. I have seen Eron in the office for approximately 15 years and was pending a visit to discuss options and goals of care.
Clinical summary: 74-year-old man with history of heavy alcohol use, abstinent for 18 months, H/O Obesity, HTN, HLD, T2DM, Afib on eliquis, Hx of LBBB, hx of BioAVR and 1 vessel CABG, JAMES not compliance on CPAP, s/p ICD presents to computer lab assistant for
elective RHC. . He was previously on Lasix, later trialed on Bumex (developed rash) and now is on Torsemide.
RHC on 08/21/24 finds markedly elevated filling pressures with pulmonary capillary wedge pressure of 35 and severely depressed cardiac index of 1 with cardiac output of 2.34.
RHC on 08/22/[address] SG catheter and demonstrated elevated filling pressures with pulmonary capillary wedge pressure of 27, elevated pulmonary pressures of 65/28, cardiogenic shock with cardiac index of 1.75
Progress Note - Stevedore Hold
Subjective
Date of Service: September 02, 2024
Patient seen and examined. No response to questions
Objective
Labs:
09/02/24 03:39
09/02/24 03:39
Labs
Hgb 12.5 g/dL (13.0-18.0) L 09/02/24 03:39
Hct 37.7 % (39.0-52.0) L 09/02/24 03:39
Plt Count 85 10^3/uL (130-400) L 09/02/24 03:39
PT 16.7 Sec (11.4-14.6) H 08/30/24 03:51
INR 1.32 08/30/24 03:51
APTT 63.5 Sec (23.4-35.0) H 09/02/24 03:39
Sodium 127 mmol/L (135-145) L 09/02/24 03:39
Potassium 3.4 mmol/L (3.5-5.1) L 09/02/24 03:39
BUN 73 mg/dl (9-20) H 09/02/24 03:39
Creatinine 2.6 mg/dL (0.7-1.3) H 09/02/24 03:39
Glucose 147 mg/dl (70-99) H 09/02/24 03:39
Vital Signs and I&O:
Vital Signs
Temp Pulse Resp BP Pulse Ox
98.6 F 94 18 87/64 98
09/02/24 07:00 09/02/24 07:27 09/02/24 07:27 09/01/24 19:25 09/02/24 07:27
Vital Signs
Temp Pulse Resp BP Pulse Ox
98.6 F 94 18 87/64 98
09/02/24 07:00 09/02/24 07:27 09/02/24 07:27 09/01/24 19:25 09/02/24 07:27
Intake & Output
08/31/24 09/01/24 09/02/24 09/03/24
06:59 06:59 06:59 06:59
Intake Total 1853.1 / 1892.8 1732.8 / 1772.5 1984.3 / 1984.3
Output Total 1060 / 1060 1870 / 1870 2650 / 2650
Balance 793.1 / 832.8 -137.2 / -97.5 -665.7 / -665.7
Physical Exam
Physical Exam
General: No acute distress,poorly responsive
Neck: Negative JVD
Heart: Regular, Negative S3 positive S1/S2, Negative S4, CM grade II/
Lungs: Negative wheezes/rales/rhonchi
Abd: Positive BS, NT/ND, neg rebound/rigidity/guarding
Ext: Negative cyanosis/clubbing/edema
Neuro: nonfocal
--- NOTE | 2024-09-02 07:41 | W.PN.INTV ---
Today's Communication / Plan
Recommendations
Patient is interested in going home with palliative milrinone and then transition to home hospice
Continue with dobutamine drip while he is in the ICU while we arrange for the above - try to wean off if possible
Ok to remove A line
He continues to have episodes of confusion with upward eye gaze and shaking movements, possibly a seizure. Discussed case with neurology (Dr. Mcnally), and I started low-dose Keppra on 09/01/2024
CT head from 08/30/2024 negative for acute pathology
Trend UOP and sCr
Given worsening creatinine, dialysis was discussed and patient is not interested
Strict I/O
Aspiration precautions
Up OOB as tolerated
Follow-up paracentesis cultures from 08/29 (NGTD)
PT/OT
Keep K>4, Mg>2
Guarded prognosis
He is now DNR/DNI (see event note from 08/31/2024)
If he continues to deteriorate then we will transition to comfort care here in the hospital � the is in agreement with this plan
Slat Twister services will continue to follow along while he remains in ICU
Assessment
-
74-year-old obese occasional cigar smoking male with a history of hypertension, hyperlipidemia, CAD/CABG, diabetes, atrial fibrillation and JAMES/CPAP intolerant recently had AICD placed with subsequent history of difficult to control CHF underwent
elective right heart catheterization noted to have severely elevated filling pressures with low cardiac index necessitating ICU/pulmonary artery catheter/inotropes-driver salesman consulted for CHF/critical care management 08/22/2024.
Impression:
CHF-acute on top of chronic with reduced EF
Cardiomyopathy status post recent biventricular ICD 07/07/2024
JAI with suspected cardiorenal syndrome
Abnormal CT chest on 08/30/2024 with concern for multifocal pneumonia with bronchial wall thickening seen in the right lower lobe
Hyperglycemia
Hypocalcemia � now resolved
Elevated LFTs
Right sided pleural effusion likely due to cirrhosis with a hepatohydrothorax
Obesity
History of heavy alcohol use
Cardiac ascites s/p paracentesis on 08/29/2024 removing 3200 cc of exudative fluid
COPD likely due to unremitting asthma
Conditions present prior to admission:
Hypertension.
Hyperlipidemia.
Diabetes.
CAD/CABG/AVR.
Cardiomyopathy-EF 20%
ICD June 2025.
JAMES/CPAP intolerant.
Atrial fibrillation on Eliquis.
Abnormal CT abdomen-suggestive of cirrhosis 07/2024
Varicocele repair. Lumbar discectomy 2021. Repair ascending aortic aneurysm/AVR-bovine.
Plan
Patient critically ill and admitted to ICU to obtain pulmonary artery catheter, inotropes, diuresis-extensive cardiac and pulmonary workup summarized below
- He remains on dobutamine gtt and lasix gtt changed to intermittent dosing on 08/30 (lasix drip was started 08/27/2024)
- [place]-Pradeep removed on 08/26/2024
Supplemental oxygen as needed to keep SpO2 >90%
Incentive spirometry q1hr while awake
CPAP or BiPAP at night as tolerated-in the past has been intolerant-willing to use --> did not tolerate BiPAP overnight 08/25 - 08/26/2024, and refused again last night and the night before --> now DC'd
- Blood gas on AM of 08/28 showed metabolic alkalosis with appropriate respiratory compensation --> ABG rechecked on 08/30/2024 when he was becoming delirious/hallucinating, and pCO2 was normal at 39 with pH 7.45
Aspiration precautions
Given COPD seen on outpatient PFT on 11/29/2023 with normalization of DLco, Symbicort started as well as ipratropium + Xopenex; there is concern for unremitting asthma as cause of COPD
Nebulizers if needed - currently not bronchospastic
s/p prednisone taper (completed on 08/24/2024) - was not for pulmonary-had rash possibly Bumex related as an outpatient
Cardiology following-correspondence reviewed
Right heart catheterization results reviewed-significantly elevated filling pressures with low cardiac index-[facility] 08/21/24: RA 30, PA 63/38, PCWP 35-42, CO/CI 2.3/0.96, SVR 1880, PVR: 6.85 FARRAR
Pulmonary artery catheter placement-08/22/2024-improvement in cardiac index, PCWP, RA-pressure, SVR + PVR
PAC was removed on 08/26/2024 after it malpositioned ([place]-Pradeep was accidentally withdrawn somehow by the patient)
Continue diuresis as tolerated-intensified per nephrology - now off lasix gtt and on intermittent lasix dosing since 08/30
Inotropes continue-currently on dobutamine s/p milrinone
Monitor renal function, electrolytes, intake/output, lower extremity edema and weight
Replace electrolytes as needed
PO amiodarone continues as well
Heparin drip continues-Eliquis on hold--eventual change back
SOFIYA panel negative
Eventually start GDMT (hydralazine on for afterload reduction) -however patient is pending transition to comfort care vs home hospice, so this is a moot point
CT TAVR checked on showing scattered bilateral groundglass + patchy opacities with highly suspected multifocal pneumonia with report of hepatic cirrhosis
- Cardiology TAVR team still evaluating if he is a candidate for TAVR --> given his worsening creatinine and now with a hyponatremia and worsening SOB with new pneumonia, patient is interested in going home on hospice. Plan is to discharge home
with palliative milrinone, and then transitioning to hospice after he is home. Cardiology made aware of plan (I spoke with Dr. Obando on 09/01/2024). If patient continues to deteriorate then we will transition to comfort care here in the hospital.
The is in agreement with this plan.
Monitor renal function
Replace electrolytes
Acute cardiorenal state
Nephrology following-correspondence reviewed
He continues to have episodes of altered mental status, with no urinary incontinence, tongue biting or tonic�clonic movements - continue to monitor; low-dose Keppra started and I discussed the case with neurology
Monitor ascites-not enough fluid for diagnostic or therapeutic paracentesis per abdominal ultrasound on 08/22/2024 --> he went down for paracentesis on 08/29 and 3.2 L of clear, dark aylin-colored exudative fluid was removed (SAAG: >1.1, protein >2.5
indicating cardiac ascites)
Abdominal ultrasound summarized below
Trend LFTs
Liver appeared normal on recent abdominal ultrasound on 08/01/2024, hence doubtful he has cirrhosis despite CT chest on 07/31/2024 showing nodular external surface of liver concerning for cirrhosis
Monitor MSAS-no signs of withdrawal
Alcohol withdrawal treatment protocol if indicated
Ativan as needed - not currently indicated
Monitor blood sugar with goal 140-180
Insulin supplementation as needed with basal�bolus SQ insulin dose
We found out he was chewing tobacco in the room, and this was stopped. Continue nicotine patch for now
Last saw Dr. Mars/Gabrielle Mcaario CNP on 11/29/[address] Mars reviewed with as well as daughter at the bedside 08/22/2024, 08/23/2024, 08/24/2024, 08/25/[address] Obrien answered all the family's questions at bedside in layman's terms to their satisfaction
Critical care statement: A total of 41 minutes of critical care time was provided for this patient today. This includes management of unstable vital signs, evaluation of the patient at bedside, reviewing the patient's pertinent medical records
including radiographs, pressor and inotrope management, diuresis management, microbiology, laboratory evaluations, and discussion with primary team, consultants, pharmacy, nutrition, physical therapy, case management, charge nurse, critical care
nursing, and respiratory therapy.
Diagnostic data:
CXR 10/01/21: cardiomegaly with slightly prominent pulmonary vascularity which could represent mild CHF vs atypical acute pulmonary edema. possible left basilar patchy opacity such as pna������
��
Chest x-ray 12/10/21-NAD
Chest x-ray 08/22/2024-no acute disease in the chest, cardiomegaly, waterbed configuration
CT Chest 09/29/21: no PE. small bilateral pleural effusions. mild peripheral ground glass densities in lower lung zones b/l suggesting mild residual pna.��
CT chest 07/11/23-no pulmonary embolism, minimal right pleural effusion, minimal pleural thickening left hemithorrax, no adenopathy or nodules.
CT chest 07/31/2024-small right pleural effusion, moderate ascites, liver contour appears to be subtly nodular suggestive of cirrhosis, basilar atelectasis
Abdominal ultrasound 08/22/2024 - mild abdominal pelvic ascites, slightly progressed. Moderate right pleural effusion.
US BLE 10/01/21: negative for DVT������������������
ECHO 08/11/21: ischemic heart disease with mildly reduced systolic function. LV EF 40-45%. moderate LVH. RV base mildly enlarged. Tricuspid and mitral regurgitation. s/p bioprosthetic aortic valve prosthesis.�������
Nuclear stress test 06/12/21-EF 25%, moderate risk study�������
Echocardiogram 06/28/23-EF 20-25%, stage II diastolic dysfunction, bioprosthetic aortic valve, PA systolic 45, rhythm atrial fibrillation�������
Stress test 07/13/23-revealed a moderate in size, medium severity fixed basal to distal inferior and inferoseptal perfusion defect, EF 21%, overall high risk study.�������
Echo 02/16/2024: EF 25%. Global hypokinesis with basal inferior and basal inferolateral akinesis. Stage III diastolic dysfunction. Moderate to severe MR. Severely dilated left atrium. #23 bovine aortic valve with peak/mean gradient 46/29 mmHg.
Mild AI. Mild TR. PAP 35 mmHg
Echo 07/14/2024: EF 25-30% with global hypo, enlarged RV, ICD in place well seated #23 bovine AVR with peak/mean grad of 27/19 mmHg respectively, trace pericardial effusion.
Echo 08/21/24: EF 15-20%, AVR with mean gr 30, PA 30
Cardioversion 07/23/23-successful cardioversion from atrial fibrillation to sinus rhythm.
Cardiac catheterization 03/28/2024: LM: LI. LAD: Moderate to severe diffuse atherosclerotic plaque. D2 has 30% stenosis. Left circumflex: Mid 60 to 70% stenosis. RCA: LI.
HEMODYNAMICS : (mmHg) RA (m) : 22; RV (s/d,m) : 72/14, 24; PA (s/d, m) : 72/34, 50; PCWP (m) : 34, V waves to 53 mmHg; PA saturation: 62.5% on room air; AO saturation: 93.6% on room air;
Cardiac Output : 5.58 L/min; Cardiac Index : 2.23 L/min/m-2; Systemic vascular resistance: 889 dsc^(-5); Pulmonary vascular resistance: 2.87 willams unit; AO (s/d) : 102/61; LV (s/d) : 131/21; LVEDP : 30
Estimated invasive transaortic gradient of 27 mmHg, aortic valve area 1.3 cm�
Significantly elevated right and left-sided filling pressures with severe pulmonary hypertension and normal cardiac output. Borderline low systemic vascular resistance.
PFT 12/19/21-FEV1 2.55-72%, FVC 3.77 L-70%, no significant response, TLC 80%, 90%, DLCO 64%. Mild obstruction and moderate reduction in diffusing capacity.�������
Spirometry 07/29/23-FEV1 1.18-34%, FVC 1.5-39%, no significant BD response. Severe obstruction.
Subjective Dataa
Subjective Data
Date of Service:
Date of Service: September 02, 2024
Chief Complaint: Slat Twister Follow Up and Pulmonary Follow Up
Subjective:
Patient was seen and evaluated this morning. Last night he was more short of breath requiring morphine. Still having shaking movements with eyes rolling into back of head. present this morning and I answered all of her questions. He remains
on dobutamine at 7.5mcg/kg/min, as well as heparin drip. Current BP via A-line: 88/51, saturating 96% on 2 L/min, heart rate 95 and respiratory rate 15. Patient is lethargic but still easily arousable and answering my questions appropriately.
Review of Systems
General: Other (Negative unless mentioned above)
Objective Data
Data Reviewed
Vital Signs / I&O / Oxygen:
Vital Signs
Temp Pulse Resp BP Pulse Ox
98.6 F 94 18 87/64 98
09/02/24 07:00 09/02/24 07:27 09/02/24 07:27 09/01/24 19:25 09/02/24 07:27
Intake and Output
09/01/24 09/02/24 09/03/24
06:59 06:59 06:59
Intake Total 1732.8 / 1772.5 1984.3 / 1984.3
Output Total 1870 / 1870 2650 / 2650
Balance -137.2 / -97.5 -665.7 / -665.7
SaO2 98
Nasal Cannula flow liters per 2
minute
Physical Exam
General: Respiratory Distress (negative), Comfortable, Chills (negative), Sweats (negative) and Other (Morbidly obese)
HEENT: Normocephalic, Anicteric and Other (thick neck)
Cardiovascular: S1-S2, Murmur (Soft systolic murmur in right upper sternal border) and Peripheral Edema (+2 lower extremity pitting edema bilaterally)
Respiratory: Wheeze (negative), Crackles (Bibasilar), Rhonchi (negative), Non-Labored Respirations and Stridor (negative)
GI: Soft, Distended (Abdominal obesity), Non Tender and Normal Bowel Sounds
Neurology: Tremors (Occasionally although improved) and Lethargic (Although easily arousable and answering my questions appropriately)
Skin: Warm, Dry and Good Color
Labs/Micro/Reports
Lab Data
09/02/24 03:39
09/02/24 03:39
Laboratory Results
09/01/24 09/02/24
23:44 03:39
APTT 63.5 H
pH 7.44
pCO2 35
pO2 109 H
HCO3 23.8
O2 Delivery Level
Microbiology
08/29/24 08:28 Peritoneal Fluid Body Fluid Culture - Final
No Growth After 72 Hours
08/29/24 08:28 Peritoneal Fluid Gram Stain - Final
08/31/24 09:45 Blood/Venous Blood Culture - Preliminary
No Growth in 24 hours- Final report to follow
08/31/24 09:50 Nose Nasal Screen MRSA (PCR) - Final
MRSA not detected - performed by PCR methodology.
08/31/24 09:44 Urine Legionella Urinary Antigen - Final
Negative for Legionella pneumophila Serogroup 1 antigen.
A negative result does not rule out the possiblity of
Legionella infection due to other serogroups or species of
Legionella. Clinical correlation is recommended.
08/31/24 09:44 Urine Streptococcus pneumoniae Antigen (M - Final
Negative for Streptococcus pneumoniae antigen.
A negative result does not exclude infection with
Streptococcus pneumoniae. Clinical correlation is
recommended.
[2024-09-02] MEDS: NOVOLOG FLEXPEN-HIGH RESISTANCE 1 UNITS SC (08:16)
[2024-09-02] MEDS: LASIX 120 MG IV ×2 (08:17→15:38)
[2024-09-02] MEDS: MIRALAX PO (08:18)
[2024-09-02] MEDS: APRESOLINE PO ×2 (08:18→23:05)
[2024-09-02] MEDS: ASPIR LOW (ENTERIC COATED) PO (08:18)
[2024-09-02] MEDS: KEPPRA 500 MG IV ×2 (08:18→19:28)
[2024-09-02] MEDS: IMDUR (EXTENDED RELEASE) PO (08:18)
[2024-09-02] MEDS: PACERONE PO (08:19)
[2024-09-02] MEDS: NICODERM TRANSDERMAL 14 MG TRANSDERM (08:19)
[2024-09-02 08:26] LABS: Glucose - Point of Care 125 mg/dl (70-99)
--- NOTE | 2024-09-02 09:04 | W.PN.NEPH.PH ---
Today's Communication / Plan
-
Continue Lasix
Assessment/Plan
-
74 y/o M, hx of Obesity, HTN, HLD, T2DM, Afib on eliquis, Hx of LBBB, hx of BioAVR and 1 vessel CABG, JAMES not compliance on CPAP, s/p ICD presents to process laboratory specialist for elective RHC. . He was previously on Lasix, later trialed on Bumex (developed rash)
and now is on Torsemide. Today's RHC showed cardiac index of 1.0 and elevated wedge pressures of 37
renal consult for acute on chronic kidney disease with a baseline creatinine 1.6-1.8 with admitting creatinine 2.2.
Impression:
JAI
CKD (1.6-1.8)
Decompensated heart failure reduced ejection fraction 15%
Atrial fibrillation
ICD
Hyponatremia
Thrombocytopenia
Bioprosthetic aortic valve/
Plan:
Follow BMP
Continue Lasix IV
Discussed with at bedside. He is clearly deteriorating. She understands this. She also understands that there is no way she can manage him at home even on hospice.
She has requested inpatient hospice which I believe is reasonable
Replete potassium
Critical care time spent 31 minutes
-
-
Date of Service: September 02, 2024
CC / HPI / ROS
-
Chief Complaint:
Shortness of breath
History of Present Illness:
JAI/Cr stable at 2.6
remains on dobutamine for decompensated HFrEF
good response still to IV lasix BID
More lethargic overnight, now with clonic twitching
Sodium stable low at 127
Potassium low 3.4
Review of Systems:
no overt SOB
no CP
Nonoliguric via ross
Labs
-
Labs:
WBC 9.2 10^3/uL (4.8-10.8) 09/02/24 03:39
RBC 4.36 10^6/uL (4.70-6.10) L 09/02/24 03:39
Hgb 12.5 g/dL (13.0-18.0) L 09/02/24 03:39
Hct 37.7 % (39.0-52.0) L 09/02/24 03:39
Plt Count 85 10^3/uL (130-400) L 09/02/24 03:39
Sodium 127 mmol/L (135-145) L 09/02/24 03:39
Potassium 3.4 mmol/L (3.5-5.1) L 09/02/24 03:39
Chloride 89 mmol/L (98-107) L 09/02/24 03:39
Carbon Dioxide 25 mmol/L (22-30) 09/02/24 03:39
BUN 73 mg/dl (9-20) H 09/02/24 03:39
Creatinine 2.6 mg/dL (0.7-1.3) H 09/02/24 03:39
eGFR 24.78 09/02/24 03:39
Glucose 147 mg/dl (70-99) H 09/02/24 03:39
Calcium 8.6 mg/dl (8.4-10.2) 09/02/24 03:39
Phosphorus 4.9 mg/dl (2.5-4.5) H 09/01/24 05:23
Pqk-X-Epinotdoxwi Pept > 34971 pg/ml 09/01/24 05:23
Albumin 3.6 g/dl (3.5-5.0) 09/01/24 05:23
Physical Exam
-
Vital Signs:
Vital Signs
Temp Pulse Resp BP Pulse Ox
98.6 F 99 18 109/67 98
09/02/24 07:00 09/02/24 08:17 09/02/24 07:27 09/02/24 08:17 09/02/24 07:27
Cardiovascular:: Regular rate and rhythm
Respiratory:: Bilateral: Coarse
Lung Excursion:: Normal
Abdomen:: Nontender and Soft
Bowel Sounds:: Normal
Extremity Edema:: +3: Bilateral:
[2024-09-02] MEDS: PACERONE 200 MG PO (09:06)
[2024-09-02] MEDS: APRESOLINE 37.5 MG PO ×2 (09:06→15:37)
[2024-09-02] MEDS: IMDUR (EXTENDED RELEASE) 30 MG PO (09:07)
[2024-09-02] MEDS: ASPIR LOW (ENTERIC COATED) 81 MG PO (09:07)
[2024-09-02] MEDS: DESENEX/MITRAZOL/ZEASORB 1 APPLIC TOPICAL ×2 (09:07→20:00)
--- NOTE | 2024-09-02 09:42 | W.PN.HOSP.TC ---
Today's Communication/Plan
-
see note
Assessment / Plan
Assessment / Plan
Acute on chronic heart failure with reduced ejection fraction, EF 25-30%
Cardiomyopathy, mixed without improved ejection fraction despite optimal medical therapy
Cardiogenic shock
s/p bio AVR
s/p Medtronic biventricular ICD 07/07/2024
- BNP 17,500 at admission
- s/p RHC with Severely elevated right and left-sided filling pressures with severe pulmonary hypertension and severely reduced cardiac output (cardiac index .96) in the setting of elevated systemic vascular resistance. Wedge 35.
- s/p [place] Pradeep cath placement 08/22
- s/p Milrinone drip and now on dobutamine
- sodium/fluid restriction
- On hydralazine/Imdur for afterload reduction
- Lasix drip changed to IV lasix bid.
- Patient not a candidate for TAVR with significantly increased risk. Family aware and planning of palliative care at home
JAI on CKD stage 3b, acute cardiorenal state
Hypervolemic Hyponatremia
- Na has trended down to 127 today,
- Nephrology following
Ascites
Cirrhosis
-Liver morphology showing changes of cirrhosis on CT chest July
-Patient underwent paracentesis of 3.2 L acetic fluid, SAAG elevated and suggestive of HF related ascites.
-SHRUTI/Mitochondrial M2/F-actin/HIT
-GI following and test sent to check for etiology of cirrhosis
Acute toxic metabolic encephalopathy
ICU delirium
-Likely multifactorial from multifocal pneumonia/renal failure/Hyponatremia related
-started on abx for multifocal PNA
-Samsca 15 mg x 2 doses without any improvement in hyponatremia, poor prognostic sign in setting of HF
-Continue to require Zyprexa as needed dosing
Myoclonic jerks versus seizures
-Patient had episode of twitching/getting unresponsive and turning lao yesterday
-Required to be started on Keppra
-Continues to have all 4 limbs twitching, suspecting myoclonic jerks with metabolic reasons
-Discussed with family and adding Ativan as needed
Multifocal PNA
-on cefepime
-COVID neg
-CT chest images reviewed.
JAMES not using CPAP at home
- continue nocturnal BIPAP
- Pulm following
Hypokalemia, replete as needed
LBBB
Hx NSVT
- s/p Medtronic biventricular ICD 07/07/2024
History of atrial fibrillation s/p cv 07/23/2023
- continue Amiodarone
- IV Heparin drip requires intensive monitoring of PTTs; holding Eliquis in case additional support procedures needed for advanced CHF
History of COVID September 2021
Essential HTN
- Aldactone/BB held. on Hydralazine with Cardiology titrating
HLD
- continue statin
DM2
- hold Jardiance
- continue SSI
- A1c: 7.2% recently
CAD s/p 1 vessel CABG 2009
- continue ASA/Statin
s/p Bio-AVR 2009
H/o Cough syncope
Radiculopathy
Depression - on Zoloft
Ocular migraines
Renal calculi
Arthritis
DVT ppx: IV Heparin
Code: Full code after re-discussed with daughter
09/01 Discussed with patient family. Hospice to have visiting. Patient family want patient to be discharged on home infusion of dobutamine/milrinone with enrollment in palliative care,on further decline patient will be transition to hospice care
09/02 discussed prognosis/hospice plan again with patient spouse/family at bedside and in light of changes of yesterday family is more understanding that patient may not able to go home and will require hospice/comfort care in the hospital.
Currently patient still waking up in between and I am expecting in next 24 hours patient be more or less encephalopathic/obtunded at which point no home discharge will be possible. Continue watchful management for now. Hospice staff requested to
recheck on patient later in the day as well
Total critical care time 39 mins . Total critical care time documented does not include time spent on separately billed procedures or the services of residents, students, nurses or physician assistants. I personally saw and examined the patient. I
have reviewed all diagnostic interpretations and treatment plans as written. I was present for the salcedo portions of any procedures performed and the inclusive time noted in any critical care statement. Critical care time includes patient management
by me, time spent at the patients bedside, time to review lab and imaging results, discussing patient care, documentation in the medical record, and time spent with the family or caregiver.
Anticipated Discharge: 24 - 48 hours
Subjective/Interval History
-
Date of Service: September 02, 2024
Patient had episode of visible twitching/minimally responsive and was turning lao
Concern of having seizure episode and was started on Keppra
Patient continues to remain delirium and a more more confused
Patient woke up and was talking with the family although not very coherent
Continues to have myoclonic jerks
Remains on dobutamine drip
Has been put back on oxygen through nasal cannula
Objective Data
-
Labs:
Laboratory Results
09/01/24 09/02/24 09/02/24
23:44 03:39 10:30
WBC 9.2
Hgb 12.5 L
Hct 37.7 L
Plt Count 85 L
APTT 63.5 H Pending
HCO3 23.8
Sodium 127 L
Potassium 3.4 L
Chloride 89 L
Carbon Dioxide 25
BUN 73 H
Creatinine 2.6 H
Glucose 147 H
Calcium 8.6
Vital Signs:
Vital Signs
Temp Pulse Resp BP Pulse Ox
98.6 F 96 18 97/57 98
09/02/24 07:00 09/02/24 09:06 09/02/24 07:27 09/02/24 09:06 09/02/24 07:27
I&O
09/01/24 09/02/24 09/03/24
06:59 06:59 06:59
Intake Total 1732.8 / 1772.5 1983.3 /
Output Total 1869 / 1869 2649 / 2649
Balance -137.2 / -97.5 -665.7 / -665.7
Review of Systems
-
Unable to obtain full review of systems at this time due to: Acuity
Physical Exam
-
General: No Apparent Distress and Obese
HEENT: Oxygen (NC)
Cardiac: Regular Rhythm and S1/S2; Negative Murmur
Musculoskeletal: Edema, Right Lower Extrem and Edema, Left Lower Extrem
Neuro: Awake; Negative Oriented
--- NOTE | 2024-09-02 10:04 | PTCARENOTE ---
pt very solument at change of shift , not responsive to tactile stimuli , pt having monoclonal jerking movements in all extremities , V paced on monitor in with HR of 90s , heart tones distant , lungs diminished , on 2L NC with sat 98% , abdomen is
round and distended with hypoactive bowel sounds , ross draining yellow urine , bilateral lower extremity edema pitting +2 , pt labs noted , pt and daughter at bedside since overnight , and since the events overnight they are in agreement for
inpatient hospice vs pt to go home , states that she cannot care for him with his confusion and restlessness . at 0900 pt awake but drowsy , unable to recall events overnight , pt was able to take his oral Meds , he continues to have occasional
monoclonal jerking movements , Dr Wharton and Dr Marin here and aware of overnight events , pt to have a consult for inpatient hospice as per family requests , lorazepam is now ordered for muscle spasms
[2024-09-02] MEDS: ProAmatine 5 MG PO (12:04)
[2024-09-02] MEDS: NOVOLOG FLEXPEN-HIGH RESISTANCE 4 UNITS SC (12:05)
[2024-09-02 12:09] LABS: Glucose - Point of Care 221 mg/dl (70-99)
--- NOTE | 2024-09-02 12:34 | PTCARENOTE ---
pt BP down to 80/40s , pt medicated with midodrine , resting comfortable in bed, pastoral care visiting , family at bedside
[2024-09-02 12:55] VITALS: BP 86/61
[2024-09-02] MEDS: HEPARIN 25000 UNITS/250 ML IV (15:36)
--- NOTE | 2024-09-02 16:37 | CHAP ---
Asked by nurses to visit. Conversed with Eron, who says he is 'ready to go.' With loving family gathered at bedside, social media specialist offered Scripture reading and prayer. Emotional and spiritual support provided.
[2024-09-02] MEDS: NOVOLOG FLEXPEN-HIGH RESISTANCE 2 UNITS SC (17:14)
[2024-09-02 17:26] LABS: Glucose - Point of Care 173 mg/dl (70-99)
[2024-09-02] MEDS: TYLENOL 650 MG PO (18:01)
[2024-09-02] MEDS: BENADRYL 25 MG PO (18:01)
--- NOTE | 2024-09-02 20:00 | PTCARENOTE ---
assumed care, Ox3 drowsy and lethargic, slight jerking movements of lower extremities,CHEATHAM, V paced on the monitor c PVCs and prolonged QT, SCDs @ the request of pt, R radial a-line zeroed, +2 to lower extremities, SpO2 97% NC 2L, diminished and
coarse throughout, round obese BSx4, ross draining aylin output, bruising on abd, R groin and hip, gtts per worklist, family @ bedside and updated, R IJ cordis, R PICC, morphine given per MAR otherwise refer to documentation.
[2024-09-02 20:43] LABS: APTT 72.8 Sec (23.4-35.0)
[2024-09-02] MEDS: STERILE WATER FOR INJECTION 2.1 ML IM (21:30)
[2024-09-02] MEDS: ZYPREXA 10 MG IM (21:30)
[2024-09-02 21:48] LABS: Glucose - Point of Care 179 mg/dl (70-99)
[2024-09-02] MEDS: LANTUS 0.15 UNITS SC (22:06)
[2024-09-02] MEDS: XALATAN OPHTHALMIC SOLUTION 1 DROP RIGHT EYE (23:05)
[2024-09-03] VITALS (19 sets, daily range): BP systolic 61–109; BP diastolic 43–92; PULSE 90; O2SAT 98; BMI 38.4
--- NOTE | 2024-09-03 00:30 | PTCARENOTE ---
systems reviewed, pt has been able to communicate needs tonight, reports SOB and anxiety, morphine give per MAR, otherwise refer to documentation.
[2024-09-03] MEDS: MORPHINE SULFATE 2 MG IV ×3 (01:05→05:04)
[2024-09-03 03:35] LABS: Hematocrit 37.1 % (39.0-52.0); Hemoglobin 12.1 g/dL (13.0-18.0); Mean Corp Hgb Conc. 32.6 g/dL (33.0-37.0); Mean Corpuscular Hgb 28.7 pg (27.0-31.0); Mean Corpuscular Volume 87.9 fL (80.0-94.0); Mean Platelet Volume 12.5 fL (7.4-10.4); Platelet Count 83 10^3/uL (130-400); Red Blood Cell Count 4.22 10^6/uL (4.70-6.10); White Blood Cell Count 7.4 10^3/uL (4.8-10.8)
--- NOTE | 2024-09-03 03:48 | PTCARENOTE ---
systems reviewed, morphine per MAR, no change from previous assessment, labs sent, family @ bedside and updated, otherwise refer to documentation.
[2024-09-03 03:49] LABS: APTT 87.8 Sec (23.4-35.0)
[2024-09-03 04:05] LABS: Blood Urea Nitrogen 74 mg/dl (9-20); Calcium 8.3 mg/dl (8.4-10.2); Carbon Dioxide 24 mmol/L (22-30); Chloride 90 mmol/L (98-107); Estimated Creatinine Clearance 31 ml/min; Glucose 145 mg/dl (70-99); Magnesium 2.5 mg/dl (1.6-2.3); Potassium 3.6 mmol/L (3.5-5.1); Sodium 126 mmol/L (135-145); eGFR 22.67
[2024-09-03] MEDS: UNASYN IV ×4 (05:04→23:53)
[2024-09-03] MEDS: DOBUTREX 500 MG 250 IV ×3 (05:04→21:51)
--- NOTE | 2024-09-03 06:34 | W.PN.CARDCBS ---
Today's Communication / Plan
-
Continues to do poorly. He is receiving regular morphine for agitation.
Family still deciding between outpatient versus inpatient hospice as he continues to deteriorate overall.
TAVR team reviewed his case and he is felt to be a poor candidate for TAVR and it was not recommended.
Hospice/palliative care is appropriate.
Still appears volume overloaded on exam and weight remains above his dry wt and worsening
Renal function remains abnormal with creatinine of 2.8 on 09/03 and 2.6 09/02 and 2.7 on 09/01.
Nephrology is managing diuretic therapy and pt is on lasix 120 mg IV BID
Can continue Dobutamine for now given CM and until hospice eval
Amiodarone for hx PaFib
Impression / Plan
-
PCP: Dr. Chintan Gonzalez
Cardiology: Dr. Gabriel, lobsterman pt
Impression
Acute on chronic HFrEF with cardiogenic shock
JAI
Cardiomyopathy, mixed without improved ejection fraction despite optimal medical therapy
Change in mental status
PNA
s/p [employer] biventricular ICD 07/07/2024
LBBB
CAD
s/p bio AVR 2009
Paroxysmal atrial fibrillation
s/p cv 07/23/2023 Chronic AC w/ Eliquis
h/o NSVT
h/o COVID September 2021
HTN
HLD
DM2
JAMES not using CPAP
h/o cough syncope
Radiculopathy
Depression
Ocular migraines
Renal calculi
Arthritis
Lexiscan sestamibi stress test 07/13/2023: Moderate sized medium in severity fixed basal to distal inferior, basal to mid inferoseptal, small mid anterior perfusion defect with no evidence of ischemia. Ejection fraction 21% with severe global
hypokinesis
Cardiac catheterization 03/28/2024: LM: MENDOZA. LAD: Moderate to severe diffuse atherosclerotic plaque. D2 has 30% stenosis. Left circumflex: Mid 60 to 70% stenosis. RCA: LI.
HEMODYNAMICS : (mmHg) RA (m) : 22; RV (s/d,m) : 72/14, 24; PA (s/d, m) : 72/34, 50; PCWP (m) : 34, V waves to 53 mmHg; PA saturation: 62.5% on room air; AO saturation: 93.6% on room air;
Cardiac Output : 5.58 L/min; Cardiac Index : 2.23 L/min/m-2; Systemic vascular resistance: 889 dsc^(-5); Pulmonary vascular resistance: 2.87 willams unit; AO (s/d) : 102/61; LV (s/d) : 131/21; LVEDP : 30
Estimated invasive transaortic gradient of 27 mmHg, aortic valve area 1.3 cm�
Significantly elevated right and left-sided filling pressures with severe pulmonary hypertension and normal cardiac output. Borderline low systemic vascular resistance.
RHC 08/21/24: RA 30, PA 63/38, PCWP 35-42, CO/CI 2.3/0.96, SVR 1880
RHC 08/23/24: RA 15, PA 65/28, PCWP 27, CO/CI 4.47/1.75, PA sat 65.6%, SVR 1432, PVR 3.81
Echo 01/2022: Ejection fraction 40%, global hypokinesis, status post AVR with mean gradient of 10 mmHg
Echo 06/28/2023: Dilated right ventricle with ejection fraction of 20 to 25%, status post bioprosthetic AVR with mean gradient of 15 mmHg, dilated right heart with PA systolic of 45 mmHg
Echo 08/03/2023: Ejection fraction 25 to 30%, hypokinetic septum, apex, inferior, anterior and distal lateral pelletier, mild concentric LVH, moderate MR, status post bioprosthetic AVR with mean gradient of 13 mm hG
Echo 02/16/2024: EF 25%. Global hypokinesis with basal inferior and basal inferolateral akinesis. Stage III diastolic dysfunction. Moderate to severe MR. Severely dilated left atrium. #23 bovine aortic valve with peak/mean gradient 46/29 mmHg.
Mild AI. Mild TR. PAP 35 mmHg
Echo 07/14/2024: EF 25-30% with global hypo, enlarged RV, ICD in place well seated #23 bovine AVR with peak/mean grad of 27/19 mmHg respectively, trace pericardial effusion.
Echo 08/21/24: EF 15-20%, AVR with mean gr 30, PA 30
Plan:
Continues to do poorly. He is receiving regular morphine for agitation.
Family still deciding between outpatient versus inpatient hospice as he continues to deteriorate overall.
TAVR team reviewed his case and he is felt to be a poor candidate for TAVR and it was not recommended.
Hospice/palliative care is appropriate.
Still appears volume overloaded on exam and weight remains above his dry wt and worsening
Renal function remains abnormal with creatinine of 2.8 on 09/03 and 2.6 09/02 and 2.7 on 09/01.
Nephrology is managing diuretic therapy and pt is on lasix 120 mg IV BID
Can continue Dobutamine for now given CM and until hospice eval
Amiodarone for hx PaFib
s/p paracentesis of 3.3L was consistent with right heart failure.
GI does not feel ascites consistent with cirrhosis
Hep B/ C negative 08/01/24. Ferritin normal. Autoimmune markers negative
GI recommended MRI abdomen/elastography or FibroScan as outpatient as further evaluation for liver cirrhosis
Platelets remain low but are stable
Status remains tenuous.
Discussed with at bedside and nursing.
CCT: [address] Gabriel note 08/30/2024: Had a discussion with Eron and his Jane at the bedside. He is feeling much better after paracentesis. 3.2 L of ascites drained yesterday with cytology and lab studies pending. Big picture discussion with patient
and regarding goals of care. He wants to at least pursue the workup for a transcatheter valve and is even willing to consider temporary dialysis if he is able to achieve a better quality of life. In my mind alternative would be home inotrope
plus or minus continuation of ICD therapies. He was sitting in the chair for 6 hours yesterday and symptomatically feels much better on inotrope he. Ongoing discussions and coordination with the TAVR team. Please see separate Dr. Beatty note for
full detail. I have seen Eorn in the office for approximately 15 years and was pending a visit to discuss options and goals of care.
Clinical summary: 74-year-old man with history of heavy alcohol use, abstinent for 18 months, H/O Obesity, HTN, HLD, T2DM, Afib on eliquis, Hx of LBBB, hx of BioAVR and 1 vessel CABG, JAMES not compliance on CPAP, s/p ICD presents to quality control lab tech for
elective RHC. . He was previously on Lasix, later trialed on Bumex (developed rash) and now is on Torsemide.
RHC on 08/21/24 finds markedly elevated filling pressures with pulmonary capillary wedge pressure of 35 and severely depressed cardiac index of 1 with cardiac output of 2.34.
RHC on 08/22/[address] SG catheter and demonstrated elevated filling pressures with pulmonary capillary wedge pressure of 27, elevated pulmonary pressures of 65/28, cardiogenic shock with cardiac index of 1.75
Progress Note - Operations And Maintenance Specialist
Subjective
Date of Service: September 03, 2024
Patient seen and examined. Lethargic
Objective
Labs:
09/03/24 03:15
09/03/24 03:15
Labs
Hgb 12.1 g/dL (13.0-18.0) L 09/03/24 03:15
Hct 37.1 % (39.0-52.0) L 09/03/24 03:15
Plt Count 83 10^3/uL (130-400) L 09/03/24 03:15
PT 16.7 Sec (11.4-14.6) H 08/30/24 03:51
INR 1.32 08/30/24 03:51
APTT 87.8 Sec (23.4-35.0) H 09/03/24 03:15
Sodium 126 mmol/L (135-145) L 09/03/24 03:15
Potassium 3.6 mmol/L (3.5-5.1) 09/03/24 03:15
BUN 74 mg/dl (9-20) H 09/03/24 03:15
Creatinine 2.8 mg/dL (0.7-1.3) H 09/03/24 03:15
Glucose 145 mg/dl (70-99) H 09/03/24 03:15
Vital Signs and I&O:
Vital Signs
Temp Pulse Resp BP Pulse Ox
97.3 F 87 11 94/51 97
09/02/24 23:20 09/03/24 06:00 09/03/24 06:00 09/02/24 15:37 09/02/24 23:00
Vital Signs
Temp Pulse Resp BP Pulse Ox
97.3 F 87 11 94/51 97
09/02/24 23:20 09/03/24 06:00 09/03/24 06:00 09/02/24 15:37 09/02/24 23:00
Intake & Output
08/31/24 09/01/24 09/02/24 09/03/24
06:59 06:59 06:59 06:59
Intake Total 1853.1 / 1892.8 1732.8 / 1772.5 1984.3 / 2026.0 1075.6 / 1075.6
Output Total 1060 / 1060 1870 / 1870 2650 / 2725 950 / 950
Balance 793.1 / 832.8 -137.2 / -97.5 -665.7 / -699.0 125.6 / 125.6
Physical Exam
Physical Exam
General: No acute distress, poorly responsive
Neck: Negative JVD
Heart: Regular, Negative S3 positive S1/S2, Negative S4, CM grade II/
Lungs: CTA b/l, negative wheezes/rales/rhonchi
Abd: Positive BS, NT/ND, neg rebound/rigidity/guarding
Ext: Negative cyanosis/clubbing/edema
Neuro: nonfocal
--- NOTE | 2024-09-03 08:02 | W.PN.INTV ---
Today's Communication / Plan
Recommendations
Patient is interested in going home with palliative milrinone and then transition to home hospice
Cardiology will need to write a prescription for the milrinone
Consult palliative care as family interested in having narcotics available during the transition from palliative care to hospice
Continue with dobutamine drip while he is in the ICU while we arrange for the above - try to wean off if possible
Change prn morphine to dilaudid given his severe JAI
He continues to have episodes of confusion with upward eye gaze and shaking movements, possibly a seizure. Discussed case with neurology (Dr. Mcnally), and I started low-dose Keppra on 09/01/2024
CT head from 08/30/2024 negative for acute pathology
Given worsening creatinine, dialysis was discussed and patient is not interested
Aspiration precautions
Up OOB as tolerated
Follow-up paracentesis cultures from 08/29 (NGTD)
PT/OT
Keep K>4, Mg>2
He is now DNR/DNI (see event note from 08/31/2024)
If he continues to deteriorate then we will transition to comfort care here in the hospital � the is in agreement with this plan
Seasonal Driver services will continue to follow along while he remains in ICU
Assessment
-
74-year-old obese occasional cigar smoking male with a history of hypertension, hyperlipidemia, CAD/CABG, diabetes, atrial fibrillation and JAMES/CPAP intolerant recently had AICD placed with subsequent history of difficult to control CHF underwent
elective right heart catheterization noted to have severely elevated filling pressures with low cardiac index necessitating ICU/pulmonary artery catheter/inotropes-weatherization installer consulted for CHF/critical care management 08/22/2024.
Impression:
CHF-acute on top of chronic with reduced EF
Cardiomyopathy status post recent biventricular ICD 07/07/2024
Cardiogenic shock on dobutamine drip
JAI with suspected cardiorenal syndrome
Abnormal CT chest on 08/30/2024 with concern for multifocal pneumonia with bronchial wall thickening seen in the right lower lobe
Hyperglycemia
Hypocalcemia � now resolved
Elevated LFTs
Right sided pleural effusion likely due to cirrhosis with a hepatohydrothorax
Obesity
History of heavy alcohol use
Cardiac ascites s/p paracentesis on 08/29/2024 removing 3200 cc of exudative fluid
COPD likely due to unremitting asthma
Conditions present prior to admission:
Hypertension.
Hyperlipidemia.
Diabetes.
CAD/CABG/AVR.
Cardiomyopathy-EF 20%
ICD June 2025.
JAMES/CPAP intolerant.
Atrial fibrillation on Eliquis.
Abnormal CT abdomen-suggestive of cirrhosis 07/2024
Varicocele repair. Lumbar discectomy 2021. Repair ascending aortic aneurysm/AVR-bovine.
Plan
Patient critically ill and admitted to ICU to obtain pulmonary artery catheter, inotropes, diuresis-extensive cardiac and pulmonary workup summarized below
- He remains on dobutamine gtt and lasix gtt changed to intermittent dosing on 08/30 (lasix drip was started 08/27/2024)
- Mammoth-Pradepe removed on 08/26/2024
Supplemental oxygen as needed to keep SpO2 >90%
Incentive spirometry q1hr while awake
CPAP or BiPAP at night as tolerated-in the past has been intolerant-willing to use --> did not tolerate BiPAP overnight 08/25 - 08/26/2024, and refused again last night and the night before --> now DC'd
- Blood gas on AM of 08/28 showed metabolic alkalosis with appropriate respiratory compensation --> ABG rechecked on 08/30/2024 when he was becoming delirious/hallucinating, and pCO2 was normal at 39 with pH 7.45
Aspiration precautions
Given COPD seen on outpatient PFT on 11/29/2023 with normalization of DLco, Symbicort started as well as ipratropium + Xopenex; there is concern for unremitting asthma as cause of COPD
Nebulizers if needed - currently not bronchospastic
s/p prednisone taper (completed on 08/24/2024) - was not for pulmonary-had rash possibly Bumex related as an outpatient
Cardiology following-correspondence reviewed
Right heart catheterization results reviewed-significantly elevated filling pressures with low cardiac index-[facility] 08/21/24: RA 30, PA 63/38, PCWP 35-42, CO/CI 2.3/0.96, SVR 1880, PVR: 6.85 FARRAR
Pulmonary artery catheter placement-08/22/2024-improvement in cardiac index, PCWP, RA-pressure, SVR + PVR
PAC was removed on 08/26/2024 after it malpositioned (Mammoth-Pradeep was accidentally withdrawn somehow by the patient)
Continue diuresis as tolerated- previously intensified per nephrology - now off lasix gtt and on torsemide s/p intermittent lasix dosing (started 08/30 - 09/03)
Inotropes continue-currently on dobutamine s/p milrinone
Monitor renal function, electrolytes, intake/output, lower extremity edema and weight
Replace electrolytes as needed
PO amiodarone continues as well
Heparin drip continues-Eliquis on hold--eventual change back
SOFIYA panel negative
Eventually start GDMT (hydralazine on for afterload reduction) - however patient is pending transition to comfort care vs home hospice/home palliative care - defer to cardiology
CT TAVR checked on showing scattered bilateral groundglass + patchy opacities with highly suspected multifocal pneumonia with report of hepatic cirrhosis
- Cardiology TAVR team still evaluating if he is a candidate for TAVR --> given his worsening creatinine and now with a hyponatremia and worsening SOB with new pneumonia, patient is interested in going home on palliative milrinone with eventual
transition to hospice. Cardiology made aware of plan (I spoke with Dr. Obando on 09/01/2024). If patient continues to deteriorate then we will transition to comfort care here in the hospital. The + children are in agreement with this plan.
I will consult palliative care - they will see him on 09/04
Change IV morphine prn dyspnea to Dilaudid given the possible buildup of morphine metabolites in the setting of JAI
Monitor renal function
Replace electrolytes
Acute cardiorenal state
Nephrology following-correspondence reviewed
He continues to have episodes of altered mental status, with no urinary incontinence, tongue biting or tonic�clonic movements - continue to monitor; low-dose Keppra started and I discussed the case with neurology
Monitor ascites-not enough fluid for diagnostic or therapeutic paracentesis per abdominal ultrasound on 08/22/2024 --> he went down for paracentesis on 08/29 and 3.2 L of clear, dark aylin-colored exudative fluid was removed (SAAG: >1.1, protein >2.5
indicating cardiac ascites)
Abdominal ultrasound summarized below
Trend LFTs
Liver appeared normal on recent abdominal ultrasound on 08/01/2024, hence doubtful he has cirrhosis despite CT chest on 07/31/2024 showing nodular external surface of liver concerning for cirrhosis
Monitor MSAS-no signs of withdrawal
Alcohol withdrawal treatment protocol if indicated
Ativan as needed - not currently indicated
Monitor blood sugar with goal 140-180
Insulin supplementation as needed with basal�bolus SQ insulin dose
We found out he was chewing tobacco in the room, and this was stopped. Continue nicotine patch for now
Last saw Dr. Mars/Gabrielle Macario CNP on 11/29/[address]23
[address] Mars reviewed with as well as daughter at the bedside 08/22/2024, 08/23/2024, 08/24/2024, 08/25/[address] Obrien answered all the family's questions at bedside in layman's terms to their satisfaction
Critical care statement: A total of 38 minutes of critical care time was provided for this patient today. This includes management of unstable vital signs, evaluation of the patient at bedside, reviewing the patient's pertinent medical records
including radiographs, pressor and inotrope management, diuresis management, microbiology, laboratory evaluations, and discussion with primary team, consultants, pharmacy, nutrition, physical therapy, case management, charge nurse, critical care
nursing, and respiratory therapy.
Diagnostic data:
CXR 10/01/21: cardiomegaly with slightly prominent pulmonary vascularity which could represent mild CHF vs atypical acute pulmonary edema. possible left basilar patchy opacity such as pna������
��
Chest x-ray 12/10/21-NAD
Chest x-ray 08/22/2024-no acute disease in the chest, cardiomegaly, waterbed configuration
CT Chest 09/29/21: no PE. small bilateral pleural effusions. mild peripheral ground glass densities in lower lung zones b/l suggesting mild residual pna.��
CT chest 07/11/23-no pulmonary embolism, minimal right pleural effusion, minimal pleural thickening left hemithorrax, no adenopathy or nodules.
CT chest 07/31/2024-small right pleural effusion, moderate ascites, liver contour appears to be subtly nodular suggestive of cirrhosis, basilar atelectasis
Abdominal ultrasound 08/22/2024 - mild abdominal pelvic ascites, slightly progressed. Moderate right pleural effusion.
US BLE 10/01/21: negative for DVT������������������
ECHO 08/11/21: ischemic heart disease with mildly reduced systolic function. LV EF 40-45%. moderate LVH. RV base mildly enlarged. Tricuspid and mitral regurgitation. s/p bioprosthetic aortic valve prosthesis.�������
Nuclear stress test 06/12/21-EF 25%, moderate risk study�������
Echocardiogram 06/28/23-EF 20-25%, stage II diastolic dysfunction, bioprosthetic aortic valve, PA systolic 45, rhythm atrial fibrillation�������
Stress test 07/13/23-revealed a moderate in size, medium severity fixed basal to distal inferior and inferoseptal perfusion defect, EF 21%, overall high risk study.�������
Echo 02/16/2024: EF 25%. Global hypokinesis with basal inferior and basal inferolateral akinesis. Stage III diastolic dysfunction. Moderate to severe MR. Severely dilated left atrium. #23 bovine aortic valve with peak/mean gradient 46/29 mmHg.
Mild AI. Mild TR. PAP 35 mmHg
Echo 07/14/2024: EF 25-30% with global hypo, enlarged RV, ICD in place well seated #23 bovine AVR with peak/mean grad of 27/19 mmHg respectively, trace pericardial effusion.
Echo 08/21/24: EF 15-20%, AVR with mean gr 30, PA 30
Cardioversion 07/23/23-successful cardioversion from atrial fibrillation to sinus rhythm.
Cardiac catheterization 03/28/2024: LM: LI. LAD: Moderate to severe diffuse atherosclerotic plaque. D2 has 30% stenosis. Left circumflex: Mid 60 to 70% stenosis. RCA: LI.
HEMODYNAMICS : (mmHg) RA (m) : 22; RV (s/d,m) : 72/14, 24; PA (s/d, m) : 72/34, 50; PCWP (m) : 34, V waves to 53 mmHg; PA saturation: 62.5% on room air; AO saturation: 93.6% on room air;
Cardiac Output : 5.58 L/min; Cardiac Index : 2.23 L/min/m-2; Systemic vascular resistance: 889 dsc^(-5); Pulmonary vascular resistance: 2.87 willams unit; AO (s/d) : 102/61; LV (s/d) : 131/21; LVEDP : 30
Estimated invasive transaortic gradient of 27 mmHg, aortic valve area 1.3 cm�
Significantly elevated right and left-sided filling pressures with severe pulmonary hypertension and normal cardiac output. Borderline low systemic vascular resistance.
PFT 12/19/21-FEV1 2.55-72%, FVC 3.77 L-70%, no significant response, TLC 80%, 90%, DLCO 64%. Mild obstruction and moderate reduction in diffusing capacity.�������
Spirometry 07/29/23-FEV1 1.18-34%, FVC 1.5-39%, no significant BD response. Severe obstruction.
Subjective Dataa
Subjective Data
Date of Service:
Date of Service: September 03, 2024
Chief Complaint: Seasonal Driver Follow Up and Pulmonary Follow Up
Subjective:
Patient seen and evaluated today at bedside. Creatinine worsening today to 2.8. He is currently on room air breathing comfortably, heart rate 89 BP 81/66. He is sitting in chair with [facility] cordis in place. Had shortness of breath overnight
requiring morphine. Patient's , Cynthia, and daughters, Cindi and Rickie, at bedside and all questions were answered. He currently has no questions and denies SOB, chest pain, GUTHRIE, nausea, fevers or chills.
Review of Systems
General: Other (Negative unless mentioned above)
Objective Data
Data Reviewed
Vital Signs / I&O / Oxygen:
Vital Signs
Temp Pulse Resp BP Pulse Ox
99.1 F 88 18 111/62 97
09/03/24 07:00 09/03/24 09:08 09/03/24 08:04 09/03/24 09:08 09/02/24 23:00
Intake and Output
09/02/24 09/03/24 09/04/24
06:59 06:59 06:59
Intake Total 1984.3 / 2026.0 1075.6 / 1075.6
Output Total 2650 / 2725 950 / 950
Balance -665.7 / -699.0 125.6 / 125.6
SaO2 97
Nasal Cannula flow liters per 2
minute
Physical Exam
General: Respiratory Distress (negative), Comfortable, Chills (negative), Sweats (negative) and Other (Morbidly obese)
HEENT: Normocephalic, Anicteric, Other (R-IJ cordis in place) and Other (thick neck)
Cardiovascular: S1-S2, Murmur (Soft systolic murmur in right upper sternal border) and Peripheral Edema (+2 lower extremity pitting edema bilaterally)
Respiratory: Wheeze (negative), Crackles (Bibasilar), Rhonchi (negative), Non-Labored Respirations and Stridor (negative)
GI: Soft, Distended (Abdominal obesity), Non Tender and Normal Bowel Sounds
Neurology: Awake, Alert, Oriented and Tremors (Occasionally although improved)
Skin: Warm, Dry, Good Color, Cyanosis (negative) and Jaundice (negative)
Labs/Micro/Reports
Lab Data
09/03/24 03:15
09/03/24 03:15
Laboratory Results
09/02/24 09/02/24 09/03/24
11:17 20:23 03:15
APTT 141.0 H 72.8 H 87.8 H
Microbiology
08/31/24 09:45 Blood/Venous Blood Culture - Preliminary
No Growth in 72 hours- Final report to follow
08/29/24 08:28 Peritoneal Fluid Body Fluid Culture - Final
No Growth After 72 Hours
08/29/24 08:28 Peritoneal Fluid Gram Stain - Final
08/31/24 09:50 Nose Nasal Screen MRSA (PCR) - Final
MRSA not detected - performed by PCR methodology.
08/31/24 09:44 Urine Legionella Urinary Antigen - Final
Negative for Legionella pneumophila Serogroup 1 antigen.
A negative result does not rule out the possiblity of
Legionella infection due to other serogroups or species of
Legionella. Clinical correlation is recommended.
08/31/24 09:44 Urine Streptococcus pneumoniae Antigen (M - Final
Negative for Streptococcus pneumoniae antigen.
A negative result does not exclude infection with
Streptococcus pneumoniae. Clinical correlation is
recommended.
[2024-09-03] MEDS: XOPENEX 1.25 MG INHALANT SOLUTION INH ×3 (08:03→19:53)
[2024-09-03] MEDS: ATROVENT NEBULES 0.5 MG INH ×3 (08:03→19:53)
[2024-09-03 08:34] LABS: Glucose - Point of Care 143 mg/dl (70-99)
[2024-09-03] MEDS: NOVOLOG FLEXPEN-HIGH RESISTANCE 1 UNITS SC (08:36)
[2024-09-03] MEDS: LASIX 120 MG IV (09:06)
[2024-09-03] MEDS: ASPIR LOW (ENTERIC COATED) 81 MG PO (09:07)
[2024-09-03] MEDS: IMDUR (EXTENDED RELEASE) 30 MG PO (09:07)
[2024-09-03] MEDS: APRESOLINE 37.5 MG PO (09:07)
[2024-09-03] MEDS: DESENEX/MITRAZOL/ZEASORB 1 APPLIC TOPICAL ×2 (09:07→20:15)
[2024-09-03] MEDS: NICODERM TRANSDERMAL TRANSDERM (09:08)
[2024-09-03] MEDS: MIRALAX 17 GRAMS PO (09:08)
[2024-09-03] MEDS: PACERONE 200 MG PO (09:08)
[2024-09-03] MEDS: KEPPRA 500 MG IV ×2 (09:08→20:16)
[2024-09-03] MEDS: NICODERM TRANSDERMAL 14 MG TRANSDERM (09:13)
--- NOTE | 2024-09-03 09:36 | W.PN.NEPH.PH ---
Addendum entered and electronically signed by Daniel Hart MD 09/03/24 09:38:
has asked that Zyprexa be discontinued
Original Note:
Today's Communication / Plan
-
P.o. torsemide
Assessment/Plan
-
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 . He was previously on Lasix, later trialed on Bumex (developed rash)
and now is on Torsemide. Today's RHC showed cardiac index of 1.0 and elevated wedge pressures of 37
renal consult for acute on chronic kidney disease with a baseline creatinine 1.6-1.8 with admitting creatinine 2.2.
Impression:
JAI
CKD (1.6-1.8)
Decompensated heart failure reduced ejection fraction 15%
Atrial fibrillation
ICD
Hyponatremia
Thrombocytopenia
Bioprosthetic aortic valve/
Plan:
Follow BMP
Convert to oral torsemide 40 mg twice daily. states that she has these at home. It may be easily titrated up to 60 mg twice daily depending on urine output.
Plan is now for home tomorrow with intravenous dobutamine via PICC and palliative/hospice
Critical care time spent 31 minutes
-
-
Date of Service: September 03, 2024
CC / HPI / ROS
-
Chief Complaint:
Shortness of breath
History of Present Illness:
JAI/Cr stable at 2.8
remains on dobutamine for decompensated HFrEF
good response still to IV lasix BID
More lethargic overnight, now with clonic twitching
Sodium stable low at 126
Potassium improved
Review of Systems:
no overt SOB
no CP
Mental status improved
Labs
-
Labs:
WBC 7.4 10^3/uL (4.8-10.8) 09/03/24 03:15
RBC 4.22 10^6/uL (4.70-6.10) L 09/03/24 03:15
Hgb 12.1 g/dL (13.0-18.0) L 09/03/24 03:15
Hct 37.1 % (39.0-52.0) L 09/03/24 03:15
Plt Count 83 10^3/uL (130-400) L 09/03/24 03:15
Sodium 126 mmol/L (135-145) L 09/03/24 03:15
Potassium 3.6 mmol/L (3.5-5.1) 09/03/24 03:15
Chloride 90 mmol/L (98-107) L 09/03/24 03:15
Carbon Dioxide 24 mmol/L (22-30) 09/03/24 03:15
BUN 74 mg/dl (9-20) H 09/03/24 03:15
Creatinine 2.8 mg/dL (0.7-1.3) H 09/03/24 03:15
eGFR 22.67 09/03/24 03:15
Glucose 145 mg/dl (70-99) H 09/03/24 03:15
Calcium 8.3 mg/dl (8.4-10.2) L 09/03/24 03:15
Phosphorus 4.9 mg/dl (2.5-4.5) H 09/01/24 05:23
Qjp-W-Tfdcmevnvoy Pept > 83554 pg/ml 09/01/24 05:23
Albumin 3.6 g/dl (3.5-5.0) 09/01/24 05:23
Physical Exam
-
Vital Signs:
Vital Signs
Temp Pulse Resp BP Pulse Ox
99.1 F 88 18 111/62 97
09/03/24 07:00 09/03/24 09:08 09/03/24 08:04 09/03/24 09:08 09/02/24 23:00
Cardiovascular:: Regular rate and rhythm
Respiratory:: Bilateral: Coarse
Lung Excursion:: Normal
Abdomen:: Nontender and Soft
Bowel Sounds:: Normal
Extremity Edema:: +3: Bilateral:
[2024-09-03 10:21] LABS: APTT 96.1 Sec (23.4-35.0)
[2024-09-03] MEDS: ProAmatine 5 MG PO (10:22)
[2024-09-03 11:54] LABS: Glucose - Point of Care 231 mg/dl (70-99)
[2024-09-03] MEDS: NOVOLOG FLEXPEN-HIGH RESISTANCE 4 UNITS SC ×2 (12:25→17:04)
[2024-09-03] MEDS: HEPARIN 25000 UNITS/250 ML IV (12:26)
--- NOTE | 2024-09-03 14:06 | CM ---
CM following re: discharge planning.
Reviewed pt's chart, met with pt. Pt's spouse and two daughters at bedside.
Both pt and his family confirmed that plan to get home with milrinone drip, VN services and family support and community relations liaison will follow up to sign pt on hospice care when pt and family are ready.
Awaiting for a script for IV infusion to fax to [facility] for a review.
A referral made to [facility] for IV infusion management.
Both pt and his family requested hospital bed. CM placed an order for a hospital bed with [facility]. [facility] is out of hospital beds till Wednesday.
D/C plan: home with [facility] infusion therapy, [facility] and family support.
CM will follow to assist the pt with a safe discharge plan.
--- NOTE | 2024-09-03 14:23 | PTCARENOTE ---
pt awake and alert this am , conversing with family this morning he states he slept well last night , labs noted , oob in chair for 3 hours , R Radial chino removed , L arm blood pressure cuff is 15 points different from chino pt to be going home
now with palliative care by tomorrow or Wednesday
--- NOTE | 2024-09-03 14:55 | W.PN.HOSP.TC ---
Addendum entered and electronically signed by Ramiro Wharton MD 09/03/24 15:42:
Patient is planning to go on hospice/palliative care, will discontinue heparin drip
Original Note:
Today's Communication/Plan
-
Home vs Inpatient hospice based on clinical progression
see note
Assessment / Plan
Assessment / Plan
Acute on chronic heart failure with reduced ejection fraction, EF 25-30%
Cardiomyopathy, mixed without improved ejection fraction despite optimal medical therapy
Cardiogenic shock
s/p bio AVR
s/p Medtronic biventricular ICD 07/07/2024
- BNP 17,500 at admission
- s/p RHC with Severely elevated right and left-sided filling pressures with severe pulmonary hypertension and severely reduced cardiac output (cardiac index .96) in the setting of elevated systemic vascular resistance. Wedge 35.
- s/p swan Pradeep cath placement 08/22
- s/p Milrinone drip and now on dobutamine
- sodium/fluid restriction
- On hydralazine/Imdur for afterload reduction
- Lasix drip has been discontinued and currently patient on oral torsemide 3
- Patient not a candidate for TAVR with significantly increased risk.
- Patient was cleared to have regular diet and patient had pizza and nonalcoholic drink supper yesterday, weight is up 3kg today
- Family aware and planning of palliative care vs hospice at home -family was undecided but medically clear to us that patient is appropriate for home hospice care at this point albeit patient does not become encephalopathic again.
- Patient will require arrangement for milrinone drip at home
JAI on CKD stage 3b, acute cardiorenal state
Hypervolemic Hyponatremia
- Na has trended down to 127 today,
- Nephrology following
Ascites
Cirrhosis
-Liver morphology showing changes of cirrhosis on CT chest July
-Patient underwent paracentesis of 3.2 L acetic fluid, SAAG elevated and suggestive of HF related ascites.
-SHRUTI/Mitochondrial M2/F-actin/HIT
-GI following and test sent to check for etiology of cirrhosis
Acute toxic metabolic encephalopathy
ICU delirium
-Likely multifactorial from multifocal pneumonia/renal failure/Hyponatremia related
-started on abx for multifocal PNA
-Samsca 15 mg x 2 doses without any improvement in hyponatremia, poor prognostic sign in setting of HF
-Continue to require Zyprexa as needed dosing
Myoclonic jerks versus seizures on 09/01
-Patient had episode of twitching/getting unresponsive and turning lao yesterday
-Required to be started on Keppra
-Continues to have all 4 limbs twitching, suspecting myoclonic jerks with metabolic reasons
-Discussed with family and adding Ativan as needed
Multifocal PNA
-on cefepime
-COVID neg
-CT chest images reviewed.
JAMES not using CPAP at home
- continue nocturnal BIPAP
- Pulm following
Hypokalemia, replete as needed
LBBB
Hx NSVT
- s/p Medtronic biventricular ICD 07/07/2024
History of atrial fibrillation s/p cv 07/23/2023
- continue Amiodarone
- IV Heparin drip requires intensive monitoring of PTTs; holding Eliquis in case additional support procedures needed for advanced CHF
History of COVID September 2021
Essential HTN
- Aldactone/BB held. on Hydralazine with Cardiology titrating
HLD
- continue statin
DM2
- hold Jardiance
- continue SSI
- A1c: 7.2% recently
CAD s/p 1 vessel CABG 2009
- continue ASA/Statin
s/p Bio-AVR 2009
H/o Cough syncope
Radiculopathy
Depression - on Zoloft
Ocular migraines
Renal calculi
Arthritis
DVT ppx: IV Heparin
Code: Full code after re-discussed with daughter
1/24 Discussed with patient family. Hospice to have visiting. Patient family want patient to be discharged on home infusion of dobutamine/milrinone with enrollment in palliative care,on further decline patient will be transition to hospice care
09/02 discussed prognosis/hospice plan again with patient spouse/family at bedside and in light of changes of yesterday family is more understanding that patient may not able to go home and will require hospice/comfort care in the hospital.
Currently patient still waking up in between and I am expecting in next 24 hours patient be more or less encephalopathic/obtunded at which point no home discharge will be possible. Continue watchful management for now. Hospice staff requested to
recheck on patient later in the day as well
Total critical care time 36 mins . Total critical care time documented does not include time spent on separately billed procedures or the services of residents, students, nurses or physician assistants. I personally saw and examined the patient. I
have reviewed all diagnostic interpretations and treatment plans as written. I was present for the salcedo portions of any procedures performed and the inclusive time noted in any critical care statement. Critical care time includes patient management
by me, time spent at the patients bedside, time to review lab and imaging results, discussing patient care, documentation in the medical record, and time spent with the family or caregiver.
Anticipated Discharge: 24 - 48 hours
Subjective/Interval History
-
Date of Service: September 03, 2024
patient more awake today
Food apparently was liberalized yesterday on patient/family requesting patient had pizza and nonalcoholic beer in hospital, weight is up 3Kg today
Objective Data
-
Labs:
Laboratory Results
09/03/24 09/03/24
03:15 09:38
WBC 7.4
Hgb 12.1 L
Hct 37.1 L
Plt Count 83 L
APTT 87.8 H 96.1 H
Sodium 126 L
Potassium 3.6
Chloride 90 L
Carbon Dioxide 24
BUN 74 H
Creatinine 2.8 H
Glucose 145 H
Calcium 8.3 L
Vital Signs:
Vital Signs
Temp Pulse Resp BP Pulse Ox
97.7 F 87 16 79/64 97
09/03/24 11:26 09/03/24 14:10 09/03/24 14:10 09/03/24 14:07 09/02/24 23:00
I&O
09/02/24 09/03/24 09/04/24
06:59 06:59 06:59
Intake Total 1983.3 / 6.0 1075.6 / 1116.3 675.6 / 675.6
Output Total 2650 / 2725 950 / 1050 400 / 400
Balance -665.7 / -699.0 125.6 / 66.3 275.6 / 275.6
Review of Systems
-
Respiratory: Reports No Symptoms
Cardiac: Reports No Symptoms
Abdomen/GI: Reports No Symptoms
Physical Exam
-
General: No Apparent Distress and Obese
HEENT: Oxygen (NC)
Cardiac: Regular Rhythm and S1/S2; Negative Murmur
GI: Soft and Distended
Musculoskeletal: Edema, Right Lower Extrem and Edema, Left Lower Extrem
Neuro: Awake and Oriented
[2024-09-03] MEDS: DEMADEX 40 MG PO (16:51)
[2024-09-03] MEDS: APRESOLINE PO ×2 (16:52→21:50)
[2024-09-03 17:15] LABS: Glucose - Point of Care 208 mg/dl (70-99)
--- NOTE | 2024-09-03 18:16 | PTCARENOTE ---
no change in assessments , heparin gtt off ,pt to be sent home tomorrow or following day for palliative care
--- NOTE | 2024-09-03 20:44 | PTCARENOTE ---
assumed care, AAOx3, slight jerking movements noticed in upper extremities, CHEATHAM and denies pain, V paced on the monitor c PVCs, BBB, and prolonged QT, SCDs off @ the request of pt, +3 to lower extremities, SpO2 97% on RA, diminished throughout,
round obese BSx4, ross draining aylin output, bruising on abd, R groin and hip, gtts per worklist, family @ bedside and updated, R IJ cordis, R PICC, CHG bath, call alvarez within reach otherwise refer to documentation.
[2024-09-03] MEDS: XALATAN OPHTHALMIC SOLUTION 1 DROP RIGHT EYE (21:50)
[2024-09-03] MEDS: LANTUS 0.15 UNITS SC (21:50)
[2024-09-03 21:55] LABS: Glucose - Point of Care 170 mg/dl (70-99)
--- NOTE | 2024-09-03 23:16 | PTCARENOTE ---
pt BP low 60's, assess pt he is laying on his side, attempt to reposition pt but very agitated and refusing saying ' he just wants to , shot me', more confused family @ bedside, CHANGE AGENT notified.
[2024-09-04] VITALS (30 sets, daily range): BP systolic 67–101; BP diastolic 45–77; BMI 38.6
--- NOTE | 2024-09-04 04:00 | PTCARENOTE ---
systems reviewed, pt much more with it with small bouts of confusion, easily reoriented, labs sent, once cooperated with turning over SBP in the 90's, otherwise refer to documentation.
[2024-09-04 04:37] LABS: Hematocrit 36.9 % (39.0-52.0); Mean Corp Hgb Conc. 32.5 g/dL (33.0-37.0); Mean Corpuscular Hgb 28.8 pg (27.0-31.0); Mean Corpuscular Volume 88.7 fL (80.0-94.0); Mean Platelet Volume 12.3 fL (7.4-10.4); Platelet Count 73 10^3/uL (130-400); Red Blood Cell Count 4.16 10^6/uL (4.70-6.10)
[2024-09-04 04:48] LABS: Blood Urea Nitrogen 76 mg/dl (9-20); Calcium 8.2 mg/dl (8.4-10.2); Carbon Dioxide 28 mmol/L (22-30); Chloride 88 mmol/L (98-107); Estimated Creatinine Clearance 34 ml/min; Glucose 118 mg/dl (70-99); Magnesium 2.6 mg/dl (1.6-2.3); Potassium 3.5 mmol/L (3.5-5.1); Sodium 127 mmol/L (135-145); eGFR 24.78
[2024-09-04] MEDS: UNASYN IV ×4 (05:19→23:59)
[2024-09-04] MEDS: NOVOLOG FLEXPEN-HIGH RESISTANCE SC (07:46)
[2024-09-04] MEDS: ASPIR LOW (ENTERIC COATED) 81 MG PO (07:47)
[2024-09-04 07:48] LABS: Glucose - Point of Care 98 mg/dl (70-99)
[2024-09-04] MEDS: DEMADEX 40 MG PO ×2 (07:48→16:08)
[2024-09-04] MEDS: IMDUR (EXTENDED RELEASE) 30 MG PO (07:48)
[2024-09-04] MEDS: PACERONE 200 MG PO (07:48)
[2024-09-04] MEDS: APRESOLINE 37.5 MG PO (07:48)
[2024-09-04] MEDS: DESENEX/MITRAZOL/ZEASORB 1 APPLIC TOPICAL ×2 (07:48→21:28)
[2024-09-04] MEDS: KEPPRA 500 MG IV ×2 (07:48→21:21)
[2024-09-04] MEDS: MIRALAX PO (07:49)
[2024-09-04] MEDS: NICODERM TRANSDERMAL 14 MG TRANSDERM (07:49)
[2024-09-04] MEDS: XOPENEX 1.25 MG INHALANT SOLUTION INH ×3 (08:02→19:49)
[2024-09-04] MEDS: ATROVENT NEBULES 0.5 MG INH ×3 (08:02→19:49)
[2024-09-04] MEDS: DOBUTREX 500 MG 250 IV (08:05)
--- NOTE | 2024-09-04 08:31 | PTCARENOTE ---
Received patient from scene shifter. patient is AAOx3, wishes to go home, had a restless night. He is on 2L nasal cannula, remains vpaced on monitor with PVCs. He is on a regular diet, abdomen is distended, feels more taut then prior days per
patient and family. Valdovinos for urine. Edema in lower extremities. plan to meet with palliative care and hospice team to hopefully coordinate transition home.
--- NOTE | 2024-09-04 09:05 | W.PN.CARDCBS ---
Today's Communication / Plan
-
Continues to do poorly. He was receiving regular morphine for agitation.
Family arranging home hospice as he continues to deteriorate overall.
Dobutamine changed to Milrinone for home hospice infusion.
TAVR team reviewed his case and he is felt to be a poor candidate for TAVR and it was not recommended.
Hospice/palliative care is appropriate.
Still appears volume overloaded on exam and weight remains above his dry wt and renal function remains abnormal
with creatinine of 2.8 on 09/03 and 2.6 09/02 and 2.7 on 09/01.
Nephrology is managing diuretic therapy and pt is now on oral diuretics
Can continue inotrope for now given CM and until hospice eval
Amiodarone for hx PaFib
s/p paracentesis of 3.3L was consistent with right heart failure.
GI does not feel ascites consistent with cirrhosis
Hep B/ C negative 08/01/24. Ferritin normal. Autoimmune markers negative
Repeat paracentesis for palliative care being considered
Impression / Plan
-
.
PCP: Dr. Chintan Gonzalez
Cardiology: Dr. Gabriel, nursing home pt
Impression
Acute on chronic HFrEF with cardiogenic shock
JAI
Cardiomyopathy, mixed without improved ejection fraction despite optimal medical therapy
Change in mental status
PNA
s/p Medtronic biventricular ICD 07/07/2024
LBBB
CAD
s/p bio AVR 2009
Paroxysmal atrial fibrillation
s/p cv 07/23/2023 Chronic AC w/ Eliquis
h/o NSVT
h/o COVID September 2021
HTN
HLD
DM2
JAMES not using CPAP
h/o cough syncope
Radiculopathy
Depression
Ocular migraines
Renal calculi
Arthritis
Lexiscan sestamibi stress test 07/13/2023: Moderate sized medium in severity fixed basal to distal inferior, basal to mid inferoseptal, small mid anterior perfusion defect with no evidence of ischemia. Ejection fraction 21% with severe global
hypokinesis
Cardiac catheterization 03/28/2024: LM: LI. LAD: Moderate to severe diffuse atherosclerotic plaque. D2 has 30% stenosis. Left circumflex: Mid 60 to 70% stenosis. RCA: LI.
HEMODYNAMICS : (mmHg) RA (m) : 22; RV (s/d,m) : 72/14, 24; PA (s/d, m) : 72/34, 50; PCWP (m) : 34, V waves to 53 mmHg; PA saturation: 62.5% on room air; AO saturation: 93.6% on room air;
Cardiac Output : 5.58 L/min; Cardiac Index : 2.23 L/min/m-2; Systemic vascular resistance: 889 dsc^(-5); Pulmonary vascular resistance: 2.87 willams unit; AO (s/d) : 102/61; LV (s/d) : 131/21; LVEDP : 30
Estimated invasive transaortic gradient of 27 mmHg, aortic valve area 1.3 cm�
Significantly elevated right and left-sided filling pressures with severe pulmonary hypertension and normal cardiac output. Borderline low systemic vascular resistance.
RHC 08/21/24: RA 30, PA 63/38, PCWP 35-42, CO/CI 2.3/0.96, SVR 1880
RHC 08/23/24: RA 15, PA 65/28, PCWP 27, CO/CI 4.47/1.75, PA sat 65.6%, SVR 1432, PVR 3.81
Echo 01/2022: Ejection fraction 40%, global hypokinesis, status post AVR with mean gradient of 10 mmHg
Echo 06/28/2023: Dilated right ventricle with ejection fraction of 20 to 25%, status post bioprosthetic AVR with mean gradient of 15 mmHg, dilated right heart with PA systolic of 45 mmHg
Echo 08/03/2023: Ejection fraction 25 to 30%, hypokinetic septum, apex, inferior, anterior and distal lateral pelletier, mild concentric LVH, moderate MR, status post bioprosthetic AVR with mean gradient of 13 mm hG
Echo 02/16/2024: EF 25%. Global hypokinesis with basal inferior and basal inferolateral akinesis. Stage III diastolic dysfunction. Moderate to severe MR. Severely dilated left atrium. #23 bovine aortic valve with peak/mean gradient 46/29 mmHg.
Mild AI. Mild TR. PAP 35 mmHg
Echo 07/14/2024: EF 25-30% with global hypo, enlarged RV, ICD in place well seated #23 bovine AVR with peak/mean grad of 27/19 mmHg respectively, trace pericardial effusion.
Echo 08/21/24: EF 15-20%, AVR with mean gr 30, PA 30
Plan:
Continues to do poorly. He was receiving regular morphine for agitation.
Family arranging home hospice as he continues to deteriorate overall.
Dobutamine changed to Milrinone for home hospice infusion.
TAVR team reviewed his case and he is felt to be a poor candidate for TAVR and it was not recommended.
Hospice/palliative care is appropriate.
Still appears volume overloaded on exam and weight remains above his dry wt and renal function remains abnormal
with creatinine of 2.8 on 09/03 and 2.6 09/02 and 2.7 on 09/01.
Nephrology is managing diuretic therapy and pt is now on oral diuretics
Can continue inotrope for now given CM and until hospice eval
Amiodarone for hx PaFib
s/p paracentesis of 3.3L was consistent with right heart failure.
GI does not feel ascites consistent with cirrhosis
Hep B/ C negative 08/01/24. Ferritin normal. Autoimmune markers negative
Repeat paracentesis for palliative care being considered
Platelets remain low
Discussed with at bedside and nursing.
CCT: [address] Gabriel note 08/30/2024: Had a discussion with Eron and his Jane at the bedside. He is feeling much better after paracentesis. 3.2 L of ascites drained yesterday with cytology and lab studies pending. Big picture discussion with patient
and regarding goals of care. He wants to at least pursue the workup for a transcatheter valve and is even willing to consider temporary dialysis if he is able to achieve a better quality of life. In my mind alternative would be home inotrope
plus or minus continuation of ICD therapies. He was sitting in the chair for 6 hours yesterday and symptomatically feels much better on inotrope he. Ongoing discussions and coordination with the TAVR team. Please see separate Dr. Beatty note for
full detail. I have seen Eron in the office for approximately 15 years and was pending a visit to discuss options and goals of care.
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
elective RHC. . He was previously on Lasix, later trialed on Bumex (developed rash) and now is on Torsemide.
RHC on 08/21/24 finds markedly elevated filling pressures with pulmonary capillary wedge pressure of 35 and severely depressed cardiac index of 1 with cardiac output of 2.34.
RHC on 08/22/[address] SG catheter and demonstrated elevated filling pressures with pulmonary capillary wedge pressure of 27, elevated pulmonary pressures of 65/28, cardiogenic shock with cardiac index of 1.75
Progress Note - Destaticizer Feeder
Subjective
Date of Service: September 04, 2024
Pt seen and examined. No cp.
Objective
Labs:
09/04/24 04:12
09/04/24 04:12
Labs
Hgb 12.0 g/dL (13.0-18.0) L 09/04/24 04:12
Hct 36.9 % (39.0-52.0) L 09/04/24 04:12
Plt Count 73 10^3/uL (130-400) L 09/04/24 04:12
PT 16.7 Sec (11.4-14.6) H 08/30/24 03:51
INR 1.32 08/30/24 03:51
APTT 96.1 Sec (23.4-35.0) H 09/03/24 09:38
Sodium 127 mmol/L (135-145) L 09/04/24 04:12
Potassium 3.5 mmol/L (3.5-5.1) 09/04/24 04:12
BUN 76 mg/dl (9-20) H 09/04/24 04:12
Creatinine 2.6 mg/dL (0.7-1.3) H 09/04/24 04:12
Glucose 118 mg/dl (70-99) H 09/04/24 04:12
Vital Signs and I&O:
Vital Signs
Temp Pulse Resp BP Pulse Ox
97.8 F 91 18 68 95
09/04/24 08:34 09/04/24 08:04 09/04/24 08:04 09/04/24 08:00 09/04/24 08:04
Vital Signs
Temp Pulse Resp BP Pulse Ox
97.8 F 91 18 95
09/04/24 08:34 09/04/24 08:04 09/04/24 08:04 09/04/24 08:00 09/04/24 08:04
Intake & Output
09/02/24 09/03/24 09/04/24 09/05/24
06:59 06:59 06:59 06:59
Intake Total 1984. / 2025.0 1075.6 / 1116.3 1604.8 / 1632.5 55.4 / 55.4
Output Total 2650 / 2725 950 / 1050 1005 / 1040 75 / 75
Balance -665.7 / -699.0 125.6 / 66.3 599.8 / 592.5 -19.6 / -19.6
Physical Exam
Physical Exam
General: No acute distress, poorly responsive
Neck: Negative JVD
Heart: Regular, Negative S3 positive S1/S2, Negative S4, CM grade II/
Lungs: CTA b/l, negative wheezes/rales/rhonchi
Abd: Positive BS, NT/ND, neg rebound/rigidity/guarding
Ext: Negative cyanosis/clubbing/edema
Neuro: nonfocal
--- NOTE | 2024-09-04 10:34 | CM ---
Addendum entered by Fernando Irvin 09/04/24 13:29:
Palliative care MD evaluations noted and discharge plan has been changed. Per palliative care MD, pt will go home with [facility] with continuous Milrinone infusion therapy.
A referral to [facility] made, a script for Milrinone continuous infusion and PICC line information faxed to [phone], spoke to RN Ellen [phone] and she confirmed that based on RN availability, pt most likely will be discharged
tomorrow. Per Ellen, they will monorail hooker with their pump most likely tomorrow here at and pt will be discharged home and they will sign pt in on hospice next day. Ellen is aware that a hospital bed and Home Oxygen already delivered to pt's home
by [facility] [phone] and per Ellen, [facility] will be working with [facility] to keep DME in pt's house.
Pt will need ambulance transport ALS at discharge.
IMM reviewed, placed on chart, pt has a copy.
D/C plan: home with [facility] with home continuous infusion of Milrinone and family support. family has a list of Fee for services caregiver services. Pt's spouse and daughter will help the pt at home, another daughter will return to [place]
on Wednesday.
CM will follow to assist pt with discharge home with [facility] hospice.
Original Note:
CM following re: discharge planning.
Discussed in Rounds, reviewed pt's chart, met with pt and pt;s spouse and two daughters at bedside. Pt's spouse and daughter participated in Rounds meeting.
Both pt and his family plan to get home with IV infusion therapy and in a few days will switch to hospice care with hospice.
customer liaison following. customer liaison ordered a hospital bed and home Oxygen.
Per coal picker pt will need Dobutamine home infusion 7.5 mcg/kg/min continuous home infusion.
A referral [facility] to [facility] and per [facility] lia[facility] they do not provide Dobutamine.
A referral made to [facility] [phone] and per representative Alfonso they do not provided Dobutamine home infusion.
A referral made to [facility] home care and infusion [phone], spoke to insurance representative Linwood and a referral faxed to [phone]. Awaiting for determination.
Pt will need ALS ambulance with continuous Dobutamine infusion to get pt home when after care services arranged.
D/C plan: home with continuous infusion therapy, VN services and family support.
CM will follow with discharge plan updates as hospitalization progresses
--- NOTE | 2024-09-04 11:31 | W.PN.NEPH.PH ---
Today's Communication / Plan
-
cont Torsemide,adjust dose based on wt
Assessment/Plan
-
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 . He was previously on Lasix, later trialed on Bumex (developed rash)
and now is on Torsemide. Today's RHC showed cardiac index of 1.0 and elevated wedge pressures of 37
renal consult for acute on chronic kidney disease with a baseline creatinine 1.6-1.8 with admitting creatinine 2.2.
Impression:
JAI
CKD (1.6-1.8)
Decompensated heart failure reduced ejection fraction 15%
Atrial fibrillation
ICD
Hyponatremia
Thrombocytopenia
Bioprosthetic aortic valve/
Plan:
cr stable 2.6
cont oral torsemide 40 mg twice daily. It may be easily titrated up to 60 mg twice daily depending on urine output.
Plan is now for home tomorrow with intravenous dobutamine via PICC and palliative/hospice
d/w pt and family
-
-
Date of Service: September 04, 2024
CC / HPI / ROS
-
Chief Complaint:
Shortness of breath
History of Present Illness:
JAI/Cr stable at 2.6
remains on dobutamine for decompensated HFrEF
wt no sig change on TOrsemide sicne 09/03
Sodium stable low at 126
Potassium improved
Review of Systems:
no overt SOB
no CP
Mental status improved
Labs
-
Labs:
WBC 8.0 10^3/uL (4.8-10.8) 09/04/24 04:12
RBC 4.16 10^6/uL (4.70-6.10) L 09/04/24 04:12
Hgb 12.0 g/dL (13.0-18.0) L 09/04/24 04:12
Hct 36.9 % (39.0-52.0) L 09/04/24 04:12
Plt Count 73 10^3/uL (130-400) L 09/04/24 04:12
Sodium 127 mmol/L (135-145) L 09/04/24 04:12
Potassium 3.5 mmol/L (3.5-5.1) 09/04/24 04:12
Chloride 88 mmol/L (98-107) L 09/04/24 04:12
Carbon Dioxide 28 mmol/L (22-30) 09/04/24 04:12
BUN 76 mg/dl (9-20) H 09/04/24 04:12
Creatinine 2.6 mg/dL (0.7-1.3) H 09/04/24 04:12
eGFR 24.78 09/04/24 04:12
Glucose 118 mg/dl (70-99) H 09/04/24 04:12
Calcium 8.2 mg/dl (8.4-10.2) L 09/04/24 04:12
Phosphorus 4.9 mg/dl (2.5-4.5) H 09/01/24 05:23
Ymn-A-Rbzohestjei Pept > 51916 pg/ml 09/01/24 05:23
Albumin 3.6 g/dl (3.5-5.0) 09/01/24 05:23
Physical Exam
-
Vital Signs:
Vital Signs
Temp Pulse Resp BP Pulse Ox
97.8 F 89 17 91/65 95
09/04/24 08:34 09/04/24 10:00 09/04/24 10:00 09/04/24 10:00 09/04/24 08:04
Cardiovascular:: Regular rate and rhythm
Respiratory:: Bilateral: Rales (fine at bases)
Lung Excursion:: Normal
Abdomen:: Nontender and Soft
Extremity Edema:: +1: Bilateral:
Valdovinos Catheter: Yes
--- NOTE | 2024-09-04 11:43 | W.CON.PAL ---
Consultation
-
Date/Time Consultation Requested: 09/03
Date/Time Consultation Performed: 09/04
Requesting Provider: Dr. Darnell
Performing Provider: Dr. Geller
Reason for Consult: Other
Consult Requested By: Patient's Physician
Reason for Admission
Illness Course/HPI
Eron is a 74 y/o male with pmhx of AVR, DM2, CHF, CAD, CABG who had 4 hospitalizations in the past 3 months. Was hospitalized in Jun for ICD placement, twice in Jul for CHF exacerbation, and in august hospitalized after right heart cath due to
elevated wedge pressures.
he is currently not a candidate for TAVR.
Family had met with hospice on Wednesday with the plan to transition to hospice today with discontinuation of gtt when he arrived home. However, over the weekend patient changed his mind, wanting to continue on the drip. Palliative care was consulted
to plan for home needs.
Functional Status
José is currently weakned secondary to cardiac condition and multiple hospitalization. was able to take a few steps to transfer into the chair.
he lives with his in new home. he has two daughters, one who lives in [place] (returning on wednesday), antoher who lives in [place].
Discussed in home care needs - will need hospital bed, and overnight caregivers to support . 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
Goals of Care Discussion
-
Patient able to participate in discussion at time of visit: Yes
Patient's Information Preferences: Fully Involved/Able to Participate
Patient Goals
patient is fully able to participate in conversation.
his goals are comfort oriented, he does not wish to stay in the hospital, wishes to be at home with his family
He would like to maintain the milrinone or other drip for as long as possible, evn if its just a few days and then switch over to hospice
discussed palliative care team vs. hospice coverage.
Although our hospice does accept patients on home inotropes, [facility] does. this option would provide grater support for the family and meet his goals and wishes and facilitate a safer discharge home.
I personally called [facility] and checked and they confirmed they do go upto [facility].
communicated the above with the team.
Pain & Symptom Assessment
-
patient denies significant pain or dyspnea at rest.
Objective Data
-
Objective Data:
Vital Signs
Temp Pulse Resp BP Pulse Ox
97.8 F 89 17 91/65 95
09/04/24 08:34 09/04/24 10:00 09/04/24 10:00 09/04/24 10:00 09/04/24 08:04
Laboratory Results
09/04/24 04:12
09/04/24 04:12
PT 16.7 Sec (11.4-14.6) H 08/30/24 03:51
INR 1.32 08/30/24 03:51
APTT 96.1 Sec (23.4-35.0) H 09/03/24 09:38
Ammonia < 9 umol/L (9-30) L 09/01/24 05:23
Total Protein 5.7 g/dl (6.3-8.2) L 09/01/24 05:23
Albumin 3.6 g/dl (3.5-5.0) 09/01/24 05:23
Palliative Performance Scale
Palliative Performance Scale:
PPS Level Ambulation Activity & Evidence of Disease Self Care Intake Conscious Level
100% Full Normal Activity & Work; Full Intake Full
No Evidence of Disease
90% Full Normal Activity & Work; Full Normal Full
Some Evidence of Disease
80% Full Normal Activity with Effort Full Normal or Full
Some Evidence of Disease Reduced
70% Reduced Unable Normal Job/Work Full Normal or Full
Significant Disease Reduced
60% Reduced Unable Hobby/Housework Occasional Normal or Full or Confusion
Significant Disease Assistance Reduced
50% Mainly Sit/Lie Unable to do Any Work Considerable Normal or Full or Confusion
Extensive Disease Assistance Req'd Reduced
40% Mainly in Bed Unable to do Most Activity Mainly Assistance Normal or Full or Drowsy;
Extensive Disease Reduced +/- Confusion
30% Totally Bed Unable to do Any Activity Total Care Normal or Full or Drowsy;
Bound Extensive Disease Reduced +/- Confusion
20% Totally Bed Bound Unable to do Any Activity Total Care Minimal to Full or Drowsy;
Extensive Disease Sips +/- Confusion
10% Totally Bed Bound Unable to do Any Activity Total Care Mouth Care Drowsy or Coma;
Extensive Disease Only +/- Confusion
0%
PPS Score Level:
Palliative Performance Score Response
Palliative Performance Score Response: 40%
Physical Exam
-
General: Well Developed, Well Nourished and No Apparent Distress
Neuro: Awake and Alert
Psych: Calm
Assessment / Plan
-
Assessment/Plan:
Patients goals are to be discharged home with inotrope gtt (if approved) [place]. He does not want to be rehospitalized
If [facility] is able to accept today or tomorrow, this would be the most in line with his goals, and would provide the safest discharge option.
Alternatively, if unable to do hospice with drip, then would start with drip + palliative care, but has a higher likelihood of readmission.
Code status DNR.
total face to face time + floor time + coordination of care with team 80 mins
[2024-09-04] MEDS: PRIMACOR 20 MG 100 IV ×2 (11:53→19:10)
[2024-09-04] MEDS: NOVOLOG FLEXPEN-HIGH RESISTANCE 2 UNITS SC ×2 (12:25→17:35)
[2024-09-04 12:39] LABS: Glucose - Point of Care 173 mg/dl (70-99)
--- NOTE | 2024-09-04 12:56 | W.PN.INTV ---
Addendum entered and electronically signed by Cindy rFanklin MD 09/04/24 15:34:
Resident note reviewed below. Patient seen and examined independently by myself. Agree with plan as outlined below
Evaluated patient earlier today and again after bedside paracentesis. He feels much better after 3 L drained per IR
Denies chest pain. Daughter at bedside. on phone
Physical exam unremarkable, mild abdominal distention
PICC line in place
Data reviewed
A/P
Continue with supportive care for now. Transition from dobutamine to milrinone
Plan will be for milrinone to be brought to the hospital with [facility]. [facility] will set up milrinone therapy and dosing, reviewed with pharmacy
Patient feels much improved after 3 L drained via paracentesis
Continue with pressor support for now, anticipate discharge home on home hospice
Reviewed with critical care nursing, pharmacy, respiratory care, cardiology, case management
TCCT 31 min
Original Note:
Today's Communication / Plan
Recommendations
Palliative Ascites tap
Arrange milrinone and narcotics for home
Palliative/hospice
Family aware
Assessment
-
mpression
Mr Carrera is a 74-year-old male with a history of hypertension, hyperlipidemia, CAD/CABG, diabetes, atrial fibrillation and JAMES/CPAP intolerant , AICD in place() with subsequent worsening shortness of breath ,underwent elective right heart
catheterization that showed severely elevated filling pressures with low cardiac index necessitating pulmonary artery catheter placement.
His active issues are worsening heart function/worsening creatinine secondary to heart failure/ascites secondary to heart failure/poor candidate for TAVR/cardiogenic shock, dependent on dobutamine/milrinone infusion/hallucinations versus seizures
Assessment
# Altered mental status secondary to sepsis/uremia
Acute on chronic with reduced EF(15-20%)
Paroxysmal Atrial fibrillation
Cardiogenic shock
Obstructive sleep apnea
Worsening renal function/JAI secondary to cardiorenal syndrome
Hyperglycemia
Low platelet count
Anxiety
Nodularity of liver
# Altered mental status secondary to sepsis/uremia
Patient having auditory and visual hallucinations most likely secondary to uremia/sepsis
Nephro consult appreciated-since the change in creatinine was gradual-unlikely to be uremia-consider sepsis
Head CT normal without any acute pathology
CT chest Done, showed bilateral groundglass nodules new from prior consistent with multifocal pneumonia, hepatic cirrhosis, bilateral slight pleural effusions and moderate upper abdominal ascites
Blood cultures showed no growth
Since blood cultures were negative-no MRSA/Pseudomonas-shifted to Unasyn
Patient had hallucinations, unresponsive episodes with upward gaze raising suspicion for seizures, started on low-dose Keppra 500 mg twice daily after discussion with Dr. Mcnally(Neuro)
#Acute on chronic with reduced EF(15-20%)
Extensive cardiac history including a CABG/AICD placed in 06/2024 and paroxysmal atrial fibrillation
Cardiology consult appreciated -Cardiomyopathy-EF 20%-no improvement despite optimal medical therapy-Still clinically in volume overload, positive fluid volume balance, gained weight
Nephrology consult appreciated -managing diuretics-at 1 point patient was on Lasix drip-remained refractory-patient refused dialysis-recommended oral torsemide 40 mg twice daily-as patient is opting for palliative/hospice
Not a candidate of TAVR given recent nbrfthund-ysoewocscpufmf-sio-sodium-deconditioning
Arrange milrinone to discharge on palliative care
#Paroxysmal Atrial fibrillation
Cardiology to provide final recommendations on amiodarone and heparin given patient is choosing palliative care/hospice
#CARDIOGENIC SHOCK
Secondary to atrial fibrillation and reduced LVEF
Patient is still on dobutamine infusion at 7.5 mcg/h,changed to milrinone, arrange at home for discharge
#JAMES
BiPAP discontinued as patient repeatedly refusing it
#Worsening renal function/JAI secondary to cardiorenal syndrome
Patient did not response to Lasix drip-creatinine function remains elevated-patient refused dialysis-choosing hospice/palliative-to be discharged to home on torsemide 40 mg twice daily
#Hyperglycemia
Patient has blood sugar readings
HbA1c 7.2,07/14/2024
Insulin resistance on sliding scale changed to high
Lantus 15 units added at night,continue to monitor and titrate up as needed
Monitor blood sugar levels
#Low Platelet count
Abdominal ultrasound showed mild abdominopelvic ascites 08/22/2024
FINDINGS: There is mild abdominopelvic ascites. The largest pocket is in the lateral left lower quadrant.
There is a moderate right pleural effusion.
Elevated liver enzymes
On heparin infusion for 4T-score showed low probability, HIT panel -negative, platelet count improving, can continue heparin infusion
Dilutional?
GI evaluation was done, given normal albumin, normal platelet, normal spleen cirrhosis unlikely, but at the same time the CT showed mild nodularity of liver and patient has history of heavy alcohol use, paracentesis was done today by IR, 3.2 L of
fluid drained, increased protein in fluid suggestive of ascites secondary to congestive heart failure
Patient's family requested a palliative tap before discharge to home on palliative care
#ANXIETY
Continue zoloft
Ativan as needed
Patient feeling better
CODE STATUS #DNR/DNI
DVT prophylaxis# heparin infusion
On nicotine patch and gum
Subjective Dataa
Subjective Data
Date of Service:
Date of Service: September 04, 2024
Chief Complaint: [facility] Hel[facility] Induction Follow Up and Pulmonary Follow Up
Subjective:
Patient remains critically ill, blood pressure 80/60 on dobutamine 7.5 mcg/min
Breathing on 2 L of oxygen
Worsening creatinine function, hyponatremia, hallucinations overnight
Patient considering palliative care versus hospice as not a candidate of TAVR
Review of Systems
General: Other (Reviewed and negative condition static)
Objective Data
Data Reviewed
Vital Signs / I&O / Oxygen:
Vital Signs
Temp Pulse Resp BP Pulse Ox
97.4 F 91 12 89/68 97
09/04/24 12:34 09/04/24 12:00 09/04/24 12:00 09/04/24 12:00 09/04/24 12:43
Intake and Output
09/03/24 09/04/24 09/05/24
06:59 06:59 06:59
Intake Total 1075.6 / 1116.3 1604.8 / 1632.5 150.3 / 150.3
Output Total 950 / 1050 1005 / 1040 105 / 105
Balance 125.6 / 66.3 599.8 / 592.5 45.3 / 45.3
SaO2 97
Nasal Cannula flow liters per 2
minute
Physical Exam
General: Comfortable and Other (Morbidly obese, Breathing on 2 L of oxygen, conversant, aware of his condition)
HEENT: Normocephalic, Anicteric and Other (thick neck)
Cardiovascular: S1-S2, Murmur (Soft systolic murmur in right upper sternal border) and Peripheral Edema (+2 lower extremity pitting edema bilaterally)
Respiratory: Crackles (Bibasilar) and Non-Labored Respirations
GI: Soft, Distended (Abdominal obesity), Non Tender and Normal Bowel Sounds
Neurology: Awake, Oriented and Lethargic
Skin: Warm, Dry and Good Color
Labs/Micro/Reports
Lab Data
09/04/24 04:12
09/04/24 04:12
Microbiology
08/31/24 09:45 Blood/Venous Blood Culture - Preliminary
No Growth in 4 days- Final report to follow
08/29/24 08:28 Peritoneal Fluid Body Fluid Culture - Final
No Growth After 72 Hours
08/29/24 08:28 Peritoneal Fluid Gram Stain - Final
--- NOTE | 2024-09-04 13:08 | PTCARENOTE ---
Referral now made to [facility] after speaking with Dr. Geller. Patient on milrinone gtt, dobutamine discontinued and awaiting to see if IR can do paracentesis priror to discharge.
--- NOTE | 2024-09-04 13:54 | HOSPNOTE ---
Updated on the new plan that patient will be using [facility]. If things change or patient deteriorates please reach out. Will continue to follow until discharge.
[2024-09-04 15:32] LABS: Body Fluid Mononuclear 80.3 %; Body Fluid Polymorphonuclear 19.7 %; Body Fluid WBC 258 /CUMM
[2024-09-04 15:35] LABS: Body Fluid Second Tech EYM
--- NOTE | 2024-09-04 15:51 | PTCARENOTE ---
IR did bedside paracentesis, 3.1L of fluid removed.
[2024-09-04] MEDS: APRESOLINE PO ×2 (15:52→21:29)
--- NOTE | 2024-09-04 16:53 | W.PN.HOSP.TC ---
Today's Communication/Plan
-
arrange home hospice home milrinone for tomorrow dc
Assessment / Plan
Assessment / Plan
Assessment:
Acute on chronic heart failure with reduced ejection fraction, EF 25-30%
Cardiomyopathy, mixed without improved ejection fraction despite optimal medical therapy
Cardiogenic shock
s/p bio AVR
s/p Medtronic biventricular ICD 07/07/2024
- BNP 17,500 at admission
- s/p RHC with Severely elevated right and left-sided filling pressures with severe pulmonary hypertension and severely reduced cardiac output (cardiac index .96) in the setting of elevated systemic vascular resistance. Wedge 35.
- s/p swan Pradeep cath placement 08/22
- s/p Milrinone drip, then dobutamine, now back on Milrinone for home/hospice
- sodium/fluid restriction - to be relaxed for patient comfort when transition to hospice
- On hydralazine/Imdur for afterload reduction as tolerated
- diuretics orally as tolerated
- Patient not a candidate for TAVR with significantly increased risk.
JAI on CKD stage 3b, acute cardiorenal state
Hypervolemic Hyponatremia
- Na has trended down to 127 today
- Nephrology following
Ascites
Cirrhosis
- Liver morphology showing changes of cirrhosis on CT chest July
- Patient underwent paracentesis of 3.2 L. SAAG elevated and suggestive of HF related ascites.
- s/p repeat paracentesis 09/04 for comfort
- SHRUTI/Mitochondrial M2/F-actin/HIT
- GI following and test sent to check for etiology of cirrhosis
Acute toxic metabolic encephalopathy
ICU delirium
-Likely multifactorial from multifocal pneumonia/renal failure/Hyponatremia related
-started on abx for multifocal PNA
-Samsca 15 mg x 2 doses without any improvement in hyponatremia, poor prognostic sign in setting of HF
Myoclonic jerks versus seizures on 09/01
-Patient had episode of twitching/getting unresponsive and turning lao yesterday
-continue Keppra
-Continues to have all 4 limbs twitching, suspecting myoclonic jerks with metabolic reasons
-Discussed with family and adding Ativan as needed
Multifocal PNA
-completed Cefepime course
-COVID neg
-CT chest images reviewed.
JAMES not using CPAP at home
- continue nocturnal BIPAP
- Pulm following
Hypokalemia, replete as needed
LBBB
Hx NSVT
- s/p Medtronic biventricular ICD 07/07/2024
History of atrial fibrillation s/p cv 07/23/2023
- continue Amiodarone
- can resume Eliquis at home
History of COVID September 2021
Essential HTN
- continue BP meds
HLD
- continue statin
DM2
- hold Jardiance
- continue SSI
- A1c: 7.2% recently
CAD s/p 1 vessel CABG 2009
- continue ASA/Statin
s/p Bio-AVR 2009
H/o Cough syncope
Radiculopathy
Depression - on Zoloft
Ocular migraines
Renal calculi
Arthritis
DVT ppx: IV Heparin
Code: now DNR/DNI (see outlined discussions below)
09/01 Discussed with patient family. Hospice to have visiting. Patient family want patient to be discharged on home infusion of dobutamine/milrinone with enrollment in palliative care,on further decline patient will be transition to hospice care
09/02 discussed prognosis/hospice plan again with patient spouse/family at bedside and in light of changes of yesterday family is more understanding that patient may not able to go home and will require hospice/comfort care in the hospital.
Currently patient still waking up in between and I am expecting in next 24 hours patient be more or less encephalopathic/obtunded at which point no home discharge will be possible. Continue watchful management for now. Hospice staff requested to
recheck on patient later in the day as well
09/04: home hospice, home milrinone setup pending
Total critical care time 41 mins . Total critical care time documented does not include time spent on separately billed procedures or the services of residents, students, nurses or physician assistants. I personally saw and examined the patient. I
have reviewed all diagnostic interpretations and treatment plans as written. I was present for the salcedo portions of any procedures performed and the inclusive time noted in any critical care statement. Critical care time includes patient management
by me, time spent at the patients bedside, time to review lab and imaging results, discussing patient care, documentation in the medical record, and time spent with the family or caregiver.
Anticipated Discharge: Within 24 hours
Subjective/Interval History
-
Date of Service: September 04, 2024
no complaints
s/p paracentesis 3L today for comfort
now agreeable for home hospice/home milrinone
Objective Data
-
Vital Signs:
Vital Signs
Temp Pulse Resp BP Pulse Ox
97.4 F 98 17 80/61 94
09/04/24 12:34 09/04/24 16:08 09/04/24 15:52 09/04/24 16:08 09/04/24 13:42
I&O
09/03/24 09/04/24 09/05/24
06:59 06:59 06:59
Intake Total 1075.6 / 1116.3 1604.8 / 1632.5 653.9 / 653.9
Output Total 950 / 1050 1005 / 1040 265 / 265
Balance 125.6 / 66.3 599.8 / 592.5 388.9 / 388.9
Physical Exam
-
General: No Apparent Distress and Appears Chronically Ill
HEENT: Normocephalic and Atraumatic
Respiratory: Negative Wheezes
Cardiac: Regular Rhythm
GI: Soft and Distended
Neuro: AO x 3
Psych: Calm
Data Reviewed
-
Critical Care Time (in minutes): 41
Labs: Labs Reviewed by me
[2024-09-04 17:46] LABS: Glucose - Point of Care 183 mg/dl (70-99)
--- NOTE | 2024-09-04 20:00 | PTCARENOTE ---
assumed care, AAOx3, CHEATHAM and denies pain, V paced on the monitor c PVCs, and prolonged QT, SCDs off @ the request of pt, +3 to lower extremities, SpO2 95% on 2L NC, diminished throughout, round obese BSx4, ross draining aylin output, bruising on
abd, R groin and hip, gtts per worklist, daughter @ bedside and updated, R IJ cordis, R PICC, pt declined bath, call alvarez within reach otherwise refer to documentation.
[2024-09-04] MEDS: LANTUS 0.15 UNITS SC (21:22)
[2024-09-04] MEDS: XALATAN OPHTHALMIC SOLUTION 1 DROP RIGHT EYE (21:28)
[2024-09-04 21:33] LABS: Glucose - Point of Care 191 mg/dl (70-99)
[2024-09-05] VITALS (17 sets, daily range): BP systolic 58–99; BP diastolic 33–70; BMI 38.4
[2024-09-05] MEDS: PRIMACOR 20 MG 100 IV ×2 (02:27→10:22)
--- NOTE | 2024-09-05 04:30 | PTCARENOTE ---
systems reviewed, pt BP low pt laying on side, comfortable declined turn, otherwise refer to documentation.
[2024-09-05 04:31] LABS: Blood Urea Nitrogen 80 mg/dl (9-20); Calcium 8.2 mg/dl (8.4-10.2); Carbon Dioxide 26 mmol/L (22-30); Chloride 87 mmol/L (98-107); Estimated Creatinine Clearance 29 ml/min; Glucose 142 mg/dl (70-99); Magnesium 2.6 mg/dl (1.6-2.3); Potassium 3.5 mmol/L (3.5-5.1); Sodium 125 mmol/L (135-145); eGFR 20.07
[2024-09-05] MEDS: UNASYN IV ×2 (06:18→11:59)
[2024-09-05] MEDS: ATROVENT NEBULES 0.5 MG INH ×2 (08:08→13:36)
[2024-09-05] MEDS: XOPENEX 1.25 MG INHALANT SOLUTION INH ×2 (08:08→13:36)
[2024-09-05] MEDS: ASPIR LOW (ENTERIC COATED) 81 MG PO (08:31)
[2024-09-05] MEDS: APRESOLINE PO (08:31)
[2024-09-05] MEDS: KEPPRA 500 MG IV (08:32)
[2024-09-05] MEDS: MIRALAX PO (08:32)
[2024-09-05] MEDS: DESENEX/MITRAZOL/ZEASORB 1 APPLIC TOPICAL (08:32)
[2024-09-05] MEDS: DEMADEX 40 MG PO (08:32)
[2024-09-05] MEDS: IMDUR (EXTENDED RELEASE) 30 MG PO (08:32)
[2024-09-05] MEDS: PACERONE 200 MG PO (08:33)
[2024-09-05] MEDS: NICODERM TRANSDERMAL TRANSDERM (08:33)
[2024-09-05 08:37] LABS: Glucose - Point of Care 128 mg/dl (70-99)
--- NOTE | 2024-09-05 08:59 | CM ---
Addendum entered by Agatha Trotter 09/05/24 15:03:
Sarah here to sign patient on hospice and CM updated [facility] that they would not be needed, after liaison stated that they were also planning to follow. Patient transported via ambulance with [facility] and patient signed on to hospice.
Out of hospital DNR completed earlier and on chart. CM will continue to follow for discharge planning needs.
Addendum entered by Agatha Trotter 09/05/24 10:44:
Olimpia Méndez [phone] indicated that she would call re moving up the sign on date of the patient to hospice and DME issue. CM updated by physician that medications were faxed to the patient pharmacy and family is aware.
Please fax clinicals to [phone]/ fax [phone].
Ambulance is for [facility] at 3pm; [facility] to come at 2 pm to start drip
Addendum entered by Agatha Trotter 09/05/24 09:51:
Patient family asking for hospice sign on today. CM called to hospice and await response. Arrangements made with Acute Care to [facility] patient at 3pm with [facility] to come at 2pm to start drip. Family aware. Transportation forms completed
and placed on chart. Out of hospital DNR form placed on chart for physician to sign. CM made physician aware. CM will continue to follow for discharge planning needs.
Original Note:
CM received call about pump delivery. Per shannon pump delivery needed to be confirmed, Ambulance pending CM called to acute care and they are anticipating [facility] at 1pm. CM awaiting confirmation of availability. CM will call family to confirm
ability to receive patient. CM will continue to follow for discharge planning needs.
Plan; home with [facility] and family
--- NOTE | 2024-09-05 09:03 | PTCARENOTE ---
iv team at bedside removing cordis
[2024-09-05] MEDS: NOVOLOG FLEXPEN-HIGH RESISTANCE 1 UNITS SC (09:09)
--- NOTE | 2024-09-05 09:41 | W.PN.CARDCBS ---
Today's Communication / Plan
-
Patient to be discharged to home hospice on milrinone
Will arrange ICD therapies to be turned off
Impression / Plan
-
.
PCP: Dr. Chintan Gonzalez
Cardiology: Dr. Gabriel, continuous churn buttermaker pt
Impression
Acute on chronic HFrEF with cardiogenic shock
JAI
Cardiomyopathy, mixed without improved ejection fraction despite optimal medical therapy
Change in mental status
PNA
s/p Medtronic biventricular ICD 07/07/2024
LBBB
CAD
s/p bio AVR 2009
Paroxysmal atrial fibrillation
s/p cv 07/23/2023 Chronic AC w/ Eliquis
h/o NSVT
h/o COVID September 2021
HTN
HLD
DM2
JAMES not using CPAP
h/o cough syncope
Radiculopathy
Depression
Ocular migraines
Renal calculi
Arthritis
Lexiscan sestamibi stress test 07/13/2023: Moderate sized medium in severity fixed basal to distal inferior, basal to mid inferoseptal, small mid anterior perfusion defect with no evidence of ischemia. Ejection fraction 21% with severe global
hypokinesis
Cardiac catheterization 03/28/2024: LM: LI. LAD: Moderate to severe diffuse atherosclerotic plaque. D2 has 30% stenosis. Left circumflex: Mid 60 to 70% stenosis. RCA: LI.
HEMODYNAMICS : (mmHg) RA (m) : 22; RV (s/d,m) : 72/14, 24; PA (s/d, m) : 72/34, 50; PCWP (m) : 34, V waves to 53 mmHg; PA saturation: 62.5% on room air; AO saturation: 93.6% on room air;
Cardiac Output : 5.58 L/min; Cardiac Index : 2.23 L/min/m-2; Systemic vascular resistance: 889 dsc^(-5); Pulmonary vascular resistance: 2.87 willams unit; AO (s/d) : 102/61; LV (s/d) : 131/21; LVEDP : 30
Estimated invasive transaortic gradient of 27 mmHg, aortic valve area 1.3 cm�
Significantly elevated right and left-sided filling pressures with severe pulmonary hypertension and normal cardiac output. Borderline low systemic vascular resistance.
RHC 08/21/24: RA 30, PA 63/38, PCWP 35-42, CO/CI 2.3/0.96, SVR 1880
RHC 08/23/24: RA 15, PA 65/28, PCWP 27, CO/CI 4.47/1.75, PA sat 65.6%, SVR 1432, PVR 3.81
Echo 01/2022: Ejection fraction 40%, global hypokinesis, status post AVR with mean gradient of 10 mmHg
Echo 06/28/2023: Dilated right ventricle with ejection fraction of 20 to 25%, status post bioprosthetic AVR with mean gradient of 15 mmHg, dilated right heart with PA systolic of 45 mmHg
Echo 08/03/2023: Ejection fraction 25 to 30%, hypokinetic septum, apex, inferior, anterior and distal lateral pelletier, mild concentric LVH, moderate MR, status post bioprosthetic AVR with mean gradient of 13 mm hG
Echo 02/16/2024: EF 25%. Global hypokinesis with basal inferior and basal inferolateral akinesis. Stage III diastolic dysfunction. Moderate to severe MR. Severely dilated left atrium. #23 bovine aortic valve with peak/mean gradient 46/29 mmHg.
Mild AI. Mild TR. PAP 35 mmHg
Echo 07/14/2024: EF 25-30% with global hypo, enlarged RV, ICD in place well seated #23 bovine AVR with peak/mean grad of 27/19 mmHg respectively, trace pericardial effusion.
Echo 08/21/24: EF 15-20%, AVR with mean gr 30, PA 30
Plan:
Plan is for discharge to home hospice with milrinone
Will arrange to have therapies turned off on device
Discussed with family and nursing.
Will sign off, call with questions
Dr Gabriel note 08/30/2024: Had a discussion with Eron and his Jane at the bedside. He is feeling much better after paracentesis. 3.2 L of ascites drained yesterday with cytology and lab studies pending. Big picture discussion with patient
and regarding goals of care. He wants to at least pursue the workup for a transcatheter valve and is even willing to consider temporary dialysis if he is able to achieve a better quality of life. In my mind alternative would be home inotrope
plus or minus continuation of ICD therapies. He was sitting in the chair for 6 hours yesterday and symptomatically feels much better on inotrope he. Ongoing discussions and coordination with the TAVR team. Please see separate Dr. Beatty note for
full detail. I have seen Eron in the office for approximately 15 years and was pending a visit to discuss options and goals of care.
Clinical summary: 74-year-old man with history of heavy alcohol use, abstinent for 18 months, H/O Obesity, HTN, HLD, T2DM, Afib on eliquis, Hx of LBBB, hx of BioAVR and 1 vessel CABG, JAMES not compliance on CPAP, s/p ICD presents to crime laboratory analyst for
elective RHC. . He was previously on Lasix, later trialed on Bumex (developed rash) and now is on Torsemide.
RHC on 08/21/24 finds markedly elevated filling pressures with pulmonary capillary wedge pressure of 35 and severely depressed cardiac index of 1 with cardiac output of 2.34.
RHC on 08/22/[address] SG catheter and demonstrated elevated filling pressures with pulmonary capillary wedge pressure of 27, elevated pulmonary pressures of 65/28, cardiogenic shock with cardiac index of 1.75
Progress Note - Gas Fitter Helper
Subjective
Date of Service: September 05, 2024
No complaints
Objective
Labs:
09/04/24 04:12
09/05/24 03:49
Labs
Hgb 12.0 g/dL (13.0-18.0) L 09/04/24 04:12
Hct 36.9 % (39.0-52.0) L 09/04/24 04:12
Plt Count 73 10^3/uL (130-400) L 09/04/24 04:12
PT 16.7 Sec (11.4-14.6) H 08/30/24 03:51
INR 1.32 08/30/24 03:51
APTT 96.1 Sec (23.4-35.0) H 09/03/24 09:38
Sodium 125 mmol/L (135-145) L 09/05/24 03:49
Potassium 3.5 mmol/L (3.5-5.1) 09/05/24 03:49
BUN 80 mg/dl (9-20) H 09/05/24 03:49
Creatinine 3.1 mg/dL (0.7-1.3) H 09/05/24 03:49
Glucose 142 mg/dl (70-99) H 09/05/24 03:49
Vital Signs and I&O:
Vital Signs
Temp Pulse Resp BP Pulse Ox
97.7 F 98 16 86/65 96
09/05/24 08:09 09/05/24 08:11 09/05/24 08:11 09/05/24 06:00 09/05/24 08:11
Vital Signs
Temp Pulse Resp BP Pulse Ox
97.7 F 98 16 86/65 96
09/05/24 08:09 09/05/24 08:11 09/05/24 08:11 09/05/24 06:00 09/05/24 08:11
Intake & Output
09/03/24 09/04/24 09/05/24 09/06/24
06:59 06:59 06:59 06:59
Intake Total 1075.6 / 1116.3 1604.8 / 1632.5 1070.9 / 1070.9
Output Total 950 / 1050 1005 / 1040 605 / 605
Balance 125.6 / 66.3 599.8 / 592.5 465.9 / 465.9
Physical Exam
Physical Exam
General: Well developed, well nourished in NAD.
Neck: Supple, no JVD, HJR, carotids +2 B/L, no bruits bilaterally.
Heart: Non displaced PMI, RRR, 2/6 basal systolic murmur, No S3, S4, no rubs.
Lungs: Scattered rhonchi
Extremities: No clubbing, cyanosis or edema bilaterally.
Neuro: Grossly nonfocal, awake, alert and oriented x3.
--- NOTE | 2024-09-05 09:46 | W.CAR.ICD ---
ICD Inactivation Request
-
Hand Fabric Cutter Notified: [employer]
The above vendor has been contacted to inactivate the patient's Implantable Cardioverter Defibrillator.
--- NOTE | 2024-09-05 10:07 | W.PN.HOSP.TC ---
Today's Communication/Plan
-
dc home hospice today if all arrangements/transport finalized
Assessment / Plan
Assessment / Plan
Assessment:
Acute on chronic heart failure with reduced ejection fraction, EF 25-30%
Cardiomyopathy, mixed without improved ejection fraction despite optimal medical therapy
Cardiogenic shock
s/p bio AVR
s/p Medtronic biventricular ICD 07/07/2024
- BNP 17,500 at admission
- s/p RHC with Severely elevated right and left-sided filling pressures with severe pulmonary hypertension and severely reduced cardiac output (cardiac index .96) in the setting of elevated systemic vascular resistance. Wedge 35.
- s/p swan Pradeep cath placement 08/22
- s/p Milrinone drip, then dobutamine, now back on Milrinone for home/hospice
- sodium/fluid restriction - to be relaxed for patient comfort when transition to hospice
- On hydralazine/Imdur for afterload reduction as tolerated
- diuretics orally as tolerated
- Patient not a candidate for TAVR with significantly increased risk.
JAI on CKD stage 3b, acute cardiorenal state
Hypervolemic Hyponatremia
- Na has trended down to 125 today
- Nephrology following
Ascites
Cirrhosis
- Liver morphology showing changes of cirrhosis on CT chest July
- Patient underwent paracentesis of 3.2 L. SAAG elevated and suggestive of HF related ascites.
- s/p repeat paracentesis 09/04 for comfort
- SHRUTI/Mitochondrial M2/F-actin/HIT
- GI following and test sent to check for etiology of cirrhosis
Acute toxic metabolic encephalopathy
ICU delirium
-Likely multifactorial from multifocal pneumonia/renal failure/Hyponatremia related
-started on abx for multifocal PNA
-Samsca 15 mg x 2 doses without any improvement in hyponatremia, poor prognostic sign in setting of HF
Myoclonic jerks versus seizures on 09/01
-Patient had episode of twitching/getting unresponsive and turning lao yesterday
-continue Keppra
-Continues to have all 4 limbs twitching, suspecting myoclonic jerks with metabolic reasons
-Discussed with family and adding Ativan as needed
Multifocal PNA
-completed Cefepime course
-COVID neg
-CT chest images reviewed.
JAMES not using CPAP at home
- continue nocturnal BIPAP
- Pulm following
Hypokalemia, replete as needed
LBBB
Hx NSVT
- s/p Medtronic biventricular ICD 07/07/2024
History of atrial fibrillation s/p cv 07/23/2023
- continue Amiodarone
- can resume Eliquis at home
History of COVID September 2021
Essential HTN
- continue BP meds
HLD
- continue statin
DM2
- hold Jardiance
- continue SSI
- A1c: 7.2% recently
CAD s/p 1 vessel CABG 2009
- continue ASA/Statin
s/p Bio-AVR 2009
H/o Cough syncope
Radiculopathy
Depression - on Zoloft
Ocular migraines
Renal calculi
Arthritis
DVT ppx: IV Heparin
Code: now DNR/DNI (see outlined discussions below)
09/01 Discussed with patient family. Hospice to have visiting. Patient family want patient to be discharged on home infusion of dobutamine/milrinone with enrollment in palliative care,on further decline patient will be transition to hospice care
09/02 discussed prognosis/hospice plan again with patient spouse/family at bedside and in light of changes of yesterday family is more understanding that patient may not able to go home and will require hospice/comfort care in the hospital.
Currently patient still waking up in between and I am expecting in next 24 hours patient be more or less encephalopathic/obtunded at which point no home discharge will be possible. Continue watchful management for now. Hospice staff requested to
recheck on patient later in the day as well
09/04: home hospice, home milrinone setup pending
Total critical care time 41 mins . Total critical care time documented does not include time spent on separately billed procedures or the services of residents, students, nurses or physician assistants. I personally saw and examined the patient. I
have reviewed all diagnostic interpretations and treatment plans as written. I was present for the salcedo portions of any procedures performed and the inclusive time noted in any critical care statement. Critical care time includes patient management
by me, time spent at the patients bedside, time to review lab and imaging results, discussing patient care, documentation in the medical record, and time spent with the family or caregiver.
More than 30 minutes spent in discharge including
Final examination of the patient
Summarizing hospital stay
Instructions for continuing care to all relevant caregivers
Preparation of discharge records, prescriptions, and referral forms
Total time spent (in minutes): 41
Anticipated Discharge: Today
Subjective/Interval History
-
Date of Service: September 05, 2024
no new complaints
awaiting hospice arrangements to finalize
Objective Data
-
Labs:
Laboratory Results
09/05/24
03:49
Sodium 125 L
Potassium 3.5
Chloride 87 L
Carbon Dioxide 26
BUN 80 H
Creatinine 3.1 H
Glucose 142 H
Calcium 8.2 L
Vital Signs:
Vital Signs
Temp Pulse Resp BP Pulse Ox
97.7 F 98 16 86/65 96
09/05/24 08:09 09/05/24 08:11 09/05/24 08:11 09/05/24 06:00 09/05/24 08:11
I&O
09/04/24 09/05/24 09/06/24
06:59 06:59 06:59
Intake Total 1604.8 / 1632.5 1070.9 / 1070.9
Output Total 1005 / 1040 605 / 605
Balance 599.8 / 592.5 465.9 / 465.9
Physical Exam
-
General: No Apparent Distress and Appears Chronically Ill
HEENT: Normocephalic and Atraumatic
Respiratory: Negative Wheezes
Cardiac: Regular Rhythm
GI: Soft
Neuro: AO x 3
Psych: Calm
Data Reviewed
-
Critical Care Time (in minutes): 41
Labs: Labs Reviewed by me
--- NOTE | 2024-09-05 10:11 | W.DS.TRANS ---
DC Summary - Elementary Teacher
-
Discharge Instructions:
Discharge Diagnosis/Procedures Cardiogenic shock, acute CHF, severe , JAI on
CKD, ascites requiring paracentesis, delirium
Diet Regular,As tolerated
Activity As tolerated
Other Services Hospice
Instructions: *[facility] Heart Failure Instructions
Stand-Alone Forms: DC Instructions- Cath/EP Lab
Changes to Home Medications: No
Discharge Medications:
DC Medications w/original date entered in [facility]
amiodarone 200 mg tablet 200 mg PO DAILY Arrhythmia 07/23/23
apixaban 5 mg tablet (Eliquis) 5 mg PO BID blood thinner 07/23/23
aspirin 81 mg tablet,delayed release 81 mg PO DAILY blood thinner 07/23/23
latanoprost 0.005 % eye drops 1 drp RIGHT EYE HS Eye Condition 07/13/24
polyethylene glycol 3350 17 gram oral powder packet (Miralax) 17 g PO DAILYPRN PRN constipation 07/29/24
hydralazine 25 mg tablet 37.5 mg (1.5 x 25 mg) PO TID #150 tabs 09/04/24
ipratropium 0.5 mg-albuterol 3 mg (2.5 mg base)/3 mL nebulization soln 3 ml inhalation Q6H PRN shortness of breath or wheezing #90 mL 09/04/24
isosorbide mononitrate 30 mg tablet,extended release 24 hr 30 mg PO DAILY #30 tabs 09/04/24
levetiracetam 500 mg tablet (Keppra) 500 mg PO BID #60 tabs 09/04/24
lorazepam 2 mg/mL oral concentrate 0.5 mg (0.25 mL) PO Q4HPRN PRN anxiety or restlessness #20 mL 09/04/24
milrinone 20 mg/100 mL(200 mcg/mL) in 5 % dextrose intravenous piggybk 20,000 mcg IV PER PROTOCOL #1,000 mL 09/04/24
morphine concentrate 100 mg/5 mL (20 mg/mL) oral solution 5 mg (0.25 mL) PO Q3HPRN PRN moderate pain and/or dyspnea #15 mL 09/04/24
torsemide 20 mg tablet 40 mg (2 x 20 mg) PO BID@0800,1600 #60 tabs 09/04/24
Home Medication Changes
Pending Results: No
Total time spent discharging patient (in min): 41
[2024-09-05] MEDS: ProAmatine 5 MG PO ×2 (10:21→12:27)
--- NOTE | 2024-09-05 10:30 | PTCARENOTE ---
prn midodrine given for hypotension as charted. pt is alert and talking, but tired
--- NOTE | 2024-09-05 11:02 | W.PN.INTV ---
Addendum entered and electronically signed by Cindy Franklin MD 09/05/24 12:29:
Patient seen and examined independently by myself. Reviewed below resident note, agree with plan and recommendations
Remains hypotensive on milrinone
Right IJ has been removed
Patient requesting Valdovinos catheter remain in place
Physical exam unchanged
A/P
Continue with plans for discharge to hospice
Need to clarify whether medications will continue or not
ICD to be inactivated prior to discharge
Unasyn to be discontinued today
Reviewed with critical care nursing, respiratory care, pharmacy
Reviewed with multiple family members on rounds
Disposition efforts
Original Note:
Today's Communication / Plan
Recommendations
Cardio to make decision about amiodarone/hydralazine/isosorbide mononitrate
ICD to be inactivated today
Stop unasyn after today's dose
Home hospice
Milirinone continued
Assessment
-
mpression
Mr Carrera is a 74-year-old male with a history of hypertension, hyperlipidemia, CAD/CABG, diabetes, atrial fibrillation and JAMES/CPAP intolerant , AICD in place() with subsequent worsening shortness of breath ,underwent elective right heart
catheterization that showed severely elevated filling pressures with low cardiac index necessitating pulmonary artery catheter placement.
His active issues are worsening heart function/worsening creatinine secondary to heart failure/ascites secondary to heart failure/poor candidate for TAVR/cardiogenic shock, dependent on dobutamine/milrinone infusion/hallucinations versus seizures
Assessment
# Altered mental status secondary to sepsis/uremia
Acute on chronic with reduced EF(15-20%)
Paroxysmal Atrial fibrillation
Cardiogenic shock
Obstructive sleep apnea
Worsening renal function/JAI secondary to cardiorenal syndrome
Hyperglycemia
Low platelet count
Anxiety
Nodularity of liver
# Altered mental status secondary to sepsis/uremia
Patient having auditory and visual hallucinations most likely secondary to uremia/sepsis
Nephro consult appreciated-since the change in creatinine was gradual-unlikely to be uremia-consider sepsis
Head CT normal without any acute pathology
CT chest Done, showed bilateral groundglass nodules new from prior consistent with multifocal pneumonia, hepatic cirrhosis, bilateral slight pleural effusions and moderate upper abdominal ascites
Completed 6 days of Unasyn, plan to go home on hospice-discontinuing Unasyn after today's dose
Patient had hallucinations, unresponsive episodes with upward gaze raising suspicion for seizures, started on low-dose Keppra 500 mg twice daily after discussion with Dr. Mcnally(Neuro)
#Acute on chronic with reduced EF(15-20%)
Extensive cardiac history including a CABG/AICD placed in 06/2024 and paroxysmal atrial fibrillation
Cardiology consult appreciated -Cardiomyopathy-EF 20%-no improvement despite optimal medical therapy-Still clinically in volume overload, positive fluid volume balance, gained weight
Nephrology consult appreciated -managing diuretics-at 1 point patient was on Lasix drip-remained refractory-patient refused dialysis-recommended oral torsemide 40 mg twice daily-as patient is opting for palliative/hospice
Not a candidate of TAVR given recent wkmnjbpxi-azahxgkqqirwfs-bbc-sodium-deconditioning
Plans to go home on hospice-defer decisions to cardiology about amiodarone/midodrine /hydralazine/isosorbide mononitrate
Implantable cardioverter defibrillator to be inactivated today
#Paroxysmal Atrial fibrillation
Cardiology to provide final recommendations on amiodarone and heparin given patient is choosing home hospice
#CARDIOGENIC SHOCK
Secondary to atrial fibrillation and reduced LVEF
Patient on Milrinone 0.3mcg/kg/min
Dicharge on milrinone as per cards
#JAMES
BiPAP discontinued as patient repeatedly refusing it
#Worsening renal function/JAI secondary to cardiorenal syndrome
Patient did not response to Lasix drip-creatinine function remains elevated-patient refused dialysis-choosing hospice/palliative-to be discharged to home on torsemide 40 mg twice daily
#Hyperglycemia
Patient has blood sugar readings
HbA1c 7.2,07/14/2024
Insulin resistance on sliding scale changed to high
Lantus 15 units added at night,continue to monitor and titrate up as needed
Monitor blood sugar levels
#Ascites secondary to CHF
Abdominal ultrasound showed mild abdominopelvic ascites 08/22/2024
GI evaluation was done, given normal albumin, normal platelet, normal spleen cirrhosis unlikely, but at the same time the CT showed mild nodularity of liver and patient has history of heavy alcohol use, paracentesis was done today by IR, 3.2 L of
fluid drained, increased protein in fluid suggestive of ascites secondary to congestive heart failure
Repeat palliative ascitic tap 09/04/2024
#ANXIETY
Patient feeling better,on as needed ativan
On hydromorphone for pain management
CODE STATUS #DNR/DNI
DVT prophylaxis#SCDs
On nicotine patch and gum
Subjective Dataa
Subjective Data
Date of Service:
Date of Service: September 05, 2024
Chief Complaint: Sumo Wrestler Follow Up and Pulmonary Follow Up
Subjective:
Patient's condition static
Worsening creatinine, up to 3.1 now
Had palliative ascitic tap yesterday, feels better symptomatically
Willing to go home on hospice
Review of Systems
General: Other (Reviewed and negative)
Objective Data
Data Reviewed
Vital Signs / I&O / Oxygen:
Vital Signs
Temp Pulse Resp BP Pulse Ox
97.7 F 98 16 77/54 96
09/05/24 08:09 09/05/24 08:11 09/05/24 08:11 09/05/24 10:21 09/05/24 08:11
Intake and Output
09/04/24 09/05/24 09/06/24
06:59 06:59 06:59
Intake Total 1604.8 / 1632.5 1070.9 / 1070.9
Output Total 1005 / 1040 605 / 605
Balance 599.8 / 592.5 465.9 / 465.9
SaO2 96
Nasal Cannula flow liters per 2
minute
Physical Exam
General: Comfortable and Other (Morbidly obese, Breathing on 2 L of oxygen, conversant, aware of his condition)
HEENT: Normocephalic and Anicteric
Cardiovascular: S1-S2, Murmur (Soft systolic murmur in right upper sternal border) and Peripheral Edema (+2 lower extremity pitting edema bilaterally)
Respiratory: Crackles (Bibasilar) and Non-Labored Respirations
GI: Soft, Distended (Abdominal obesity), Non Tender and Normal Bowel Sounds
Neurology: Awake, Oriented and Lethargic
Skin: Warm, Dry and Good Color
Labs/Micro/Reports
Lab Data
09/04/24 04:12
09/05/24 03:49
Microbiology
08/31/24 09:45 Blood/Venous Blood Culture - Final
No Growth - Final Report
--- NOTE | 2024-09-05 11:41 | W.PN.NEPH.PH ---
Today's Communication / Plan
-
cotn diuresis for symp
Assessment/Plan
-
74 y/o M, hx of Obesity, HTN, HLD, T2DM, Afib on eliquis, Hx of LBBB, hx of BioAVR and 1 vessel CABG, JAMES not compliance on CPAP, s/p ICD presents to labor relations officer for elective RHC. . He was previously on Lasix, later trialed on Bumex (developed rash)
and now is on Torsemide. Today's RHC showed cardiac index of 1.0 and elevated wedge pressures of 37
renal consult for acute on chronic kidney disease with a baseline creatinine 1.6-1.8 with admitting creatinine 2.2.
Impression:
JAI
CKD (1.6-1.8)
Decompensated heart failure reduced ejection fraction 15%
Atrial fibrillation
ICD
Hyponatremia
Thrombocytopenia
Bioprosthetic aortic valve/
Plan:
cr is up at 3.1
on going hyponatremia
cont oral torsemide 40 mg twice daily. It may be easily titrated up to 60 mg twice daily depending on urine output and comfort
Plan is now for home intravenous milrinone via PICC and hospice
d/w pt and family
d/w primary
will s/o, call with ?s
-
-
Date of Service: September 05, 2024
CC / HPI / ROS
-
Chief Complaint:
Shortness of breath
History of Present Illness:
JAI/Cr up at 3.1
on milrinone for decompensated HFrEF
wt no sig change on TOrsemide sicne 09/03
Sodium stable low at 125
Potassium improved
Review of Systems:
no overt SOB
no CP at rest
Labs
-
Labs:
WBC 8.0 10^3/uL (4.8-10.8) 09/04/24 04:12
RBC 4.16 10^6/uL (4.70-6.10) L 09/04/24 04:12
Hgb 12.0 g/dL (13.0-18.0) L 09/04/24 04:12
Hct 36.9 % (39.0-52.0) L 09/04/24 04:12
Plt Count 73 10^3/uL (130-400) L 09/04/24 04:12
Sodium 125 mmol/L (135-145) L 09/05/24 03:49
Potassium 3.5 mmol/L (3.5-5.1) 09/05/24 03:49
Chloride 87 mmol/L (98-107) L 09/05/24 03:49
Carbon Dioxide 26 mmol/L (22-30) 09/05/24 03:49
BUN 80 mg/dl (9-20) H 09/05/24 03:49
Creatinine 3.1 mg/dL (0.7-1.3) H 09/05/24 03:49
eGFR 20.07 09/05/24 03:49
Glucose 142 mg/dl (70-99) H 09/05/24 03:49
Calcium 8.2 mg/dl (8.4-10.2) L 09/05/24 03:49
Phosphorus 4.9 mg/dl (2.5-4.5) H 09/01/24 05:23
Kdu-F-Thpbgiozpmv Pept > 47907 pg/ml 09/01/24 05:23
Albumin 3.6 g/dl (3.5-5.0) 09/01/24 05:23
Physical Exam
-
Vital Signs:
Vital Signs
Temp Pulse Resp BP Pulse Ox
97.6 F 101 21 77/49 96
09/05/24 11:14 09/05/24 11:20 09/05/24 11:20 09/05/24 11:20 09/05/24 08:11
Cardiovascular:: Regular rate and rhythm
Respiratory:: Bilateral: Rales (fine at bases)
Lung Excursion:: Normal
Abdomen:: Nontender and Soft
Extremity Edema:: +1: Bilateral:
Valdovinos Catheter: Yes
[2024-09-05] MEDS: NOVOLOG FLEXPEN-HIGH RESISTANCE 2 UNITS SC (11:59)
[2024-09-05 12:00] LABS: Glucose - Point of Care 197 mg/dl (70-99)
--- NOTE | 2024-09-05 12:31 | PTCARENOTE ---
pt remains hypotensive despite prn midodrine, dr Vasquez aware and additional dose ordered and given. Prn dose increased in attempts to get pt home on hospice.
--- NOTE | 2024-09-05 14:05 | W.ICD.INACTI ---
ICD Device Inactivated
-
The patient's ICD device has been inactivated by the vendor.
--- NOTE | 2024-09-05 15:16 | PTCARENOTE ---
once defibrillator deactivated and [facility] home infusion nurse at bedside to show family how to use pump for milrinone, pt anxious and restless was coughing then vomited. went in room to check and pt no longer felt nauseated. gave no further
medication. discharge medications reviewed with and daughter. ambulance company in to [employer] patient and daughter rode in ambulance with patient.
== END 2024-09-05 15:24 | disposition hospice, home (50) | DRG 286 ==
LOC: ICU 13:31
PROVIDERS: Hospitalist; Internal Medicine Cardiovascular Disease; Internal Medicine Critical Care Medicine; Nurse Practitioner; Nurse Practitioner Acute Care; Nurse Practitioner Family; Nurse Practitioner Primary Care; Physician Assistant Medical; Radiology Diagnostic Radiology; Registered Nurse; Specialist; ADMITTING PHYSICIAN Internal Medicine Interventional Cardiology; ATTENDING PHYSICIAN Internal Medicine; CONSULT PHYSICIAN Internal Medicine Critical Care Medicine; CONSULT PHYSICIAN Internal Medicine Hospice and Palliative Medicine; CONSULT PHYSICIAN Internal Medicine Nephrology; CONSULT PHYSICIAN Specialist; FAMILY PHYSICIAN Family Medicine; OTHER PHYSICIAN Internal Medicine Hematology & Oncology; OTHER PHYSICIAN Internal Medicine Interventional Cardiology
PROC: 4A023N6 Measurement of Cardiac Sampling and Pressure, Right Heart, Percutaneous Approach (ICD-10-PCS; 2024-08-21)
PROC: 5A09357 Assistance with Respiratory Ventilation, Less than 24 Consecutive Hours, Continuous Positive Airway Pressure (ICD-10-PCS; 2024-08-21)
PROC: 02HQ32Z Insertion of Monitoring Device into Right Pulmonary Artery, Percutaneous Approach (ICD-10-PCS; 2024-08-22)
PROC: 0W9G3ZZ Drainage of Peritoneal Cavity, Percutaneous Approach (ICD-10-PCS; 2024-08-29)
DX: I13.0 Hypertensive heart and chronic kidney disease with heart failure and stage 1 through stage 4 chronic kidney disease, or unspecified chronic kidney disease (principal); A41.9 Sepsis, unspecified organism; G92.8 Other toxic encephalopathy; I50.23 Acute on chronic systolic (congestive) heart failure; R57.0 Cardiogenic shock; J18.9 Pneumonia, unspecified organism; Z66 Do not resuscitate; Z51.5 Encounter for palliative care; N17.9 Acute kidney failure, unspecified; R18.8 Other ascites; E87.1 Hypo-osmolality and hyponatremia; F05 Delirium due to known physiological condition; I47.19 Other supraventricular tachycardia; J44.0 Chronic obstructive pulmonary disease with (acute) lower respiratory infection; T82.857A Stenosis of other cardiac prosthetic devices, implants and grafts, initial encounter; I48.0 Paroxysmal atrial fibrillation; N18.32 Chronic kidney disease, stage 3b; I42.8 Other cardiomyopathies; Z95.810 Presence of automatic (implantable) cardiac defibrillator; I44.7 Left bundle-branch block, unspecified; E11.22 Type 2 diabetes mellitus with diabetic chronic kidney disease; G47.33 Obstructive sleep apnea (adult) (pediatric); I27.20 Pulmonary hypertension, unspecified; I25.10 Atherosclerotic heart disease of native coronary artery without angina pectoris; Z95.1 Presence of aortocoronary bypass graft; I35.0 Nonrheumatic aortic (valve) stenosis; Z95.2 Presence of prosthetic heart valve; Z79.01 Long term (current) use of anticoagulants; Z79.82 Long term (current) use of aspirin; Z79.84 Long term (current) use of oral hypoglycemic drugs; Z79.52 Long term (current) use of systemic steroids; E66.9 Obesity, unspecified; Z68.38 Body mass index [BMI] 38.0-38.9, adult; F17.290 Nicotine dependence, other tobacco product, uncomplicated; E11.65 Type 2 diabetes mellitus with hyperglycemia; E83.51 Hypocalcemia; E87.6 Hypokalemia; E78.00 Pure hypercholesterolemia, unspecified; Z11.52 Encounter for screening for COVID-19; D69.6 Thrombocytopenia, unspecified; K74.60 Unspecified cirrhosis of liver; Z86.16 Personal history of COVID-19; Z79.899 Other long term (current) drug therapy; Z91.199 Patient's noncompliance with other medical treatment and regimen due to unspecified reason; G25.3 Myoclonus; Y83.1 Surgical operation with implant of artificial internal device as the cause of abnormal reaction of the patient, or of later complication, without mention of misadventure at the time of the procedure
CPT/HCPCS: 93308; 36600; 49083; 70450; 71045; 71250; 76705; 80048; 80053; 82042; 82140; 82248; 82330; 82607; 82728; 82746; 82805; 82810; 82962; 83540; 83550; 83735; 83880; 84100; 84132; 84157; 84302; 85025; 85027; 85384; 85610; 85730; 86015; 86022; 86038; 86381; 86704; 86706; 87015; 87040; 87070; 87205; 87340; 87449; 87641; 87811; 87899; 89051; 93005; 93321; 93325; 93451; 93503; 94640; 94660; 97110; 97163; 97167; 97530; C1894; J1205; J2260; J2358; P9047